=== PATIENT | male | born 1940 | race African-American/Black ===

== ENCOUNTER 2016-12-23 20:23 | Emergency (ER) | payer MEDICARE, OTHER ==
[~2016-12-23] VITALS: Ht 175.3 cm; Wt 75.0 kg
[~2016-12-23 20:23] MED LIST: A THTAB2 PO; ACET325T PO; ATOR1TAB18 PO; DILA100C PO; DIVA250T PO; FERR325T PO; LACT10SO PO; LEXA10TA PO; METO50TA PO; PRAD150C PO; ZYPR10TA PO
[2016-12-23 20:47] VITALS: BP 133/66; PULSE 83; RESP 20; TEMP 97.7; O2SAT 97
--- NOTE | 2016-12-23 22:03 | PD ---
HPI Chief Complaint: Fall Time Seen by Provider: 22:03 Travel History International Travel<30 days: No Contact w/Intl Traveler<30days: No Traveled to known affect area: No History of Present Illness HPI 76-year-old male with history of hypertension, CAD, dementia, on Pradaxa presents to the emergency department for evaluation. Patient had a witnessed fall when transferring to standing position. He did strike his head without loss of consciousness. Report was called for nursing staff at his alf facility who requested CTP complete due to their policy that patient is on an anticoagulant. Patient does not offer any history. He states "I am not sick." He then tries to cover his head up and go to sleep. PFSH Past Medical History Anxiety: Yes Depression: Yes Cardiovascular Problems: Yes (HTN) High Cholesterol: Yes Dementia: Yes Diminished Hearing: No Hypertension: Yes Musculoskeletal: Yes (PER MEDICAL RECORD-MUSCLE WEAKNESS , LACK OF COORDINATION , DIFFICULTY WALK) Neurologic: Yes Psychiatric: Yes Immunizations Current: Yes Schizophrenia: Yes Seizures: Yes Influenza Vaccination: Yes Past Surgical History Other Surgery: Yes (UNABLE TO OTAIN) Social History Alcohol Use: No Tobacco Use: No Substance Use: No Allergies-Medications (Allergen,Severity, Reaction): Coded Allergies: *MDRO Multi-Drug Resistant Organism (Verified Adverse Reaction, Unknown, ) 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 - 06/13/16 Reported Meds & Prescriptions Reported Meds & Active Scripts Active Reported Macrodantin (Nitrofurantoin Macrocrystal) 50 Mg Cap 50 Mg PO DAILY Zyprexa (Olanzapine) 10 Mg Tab 10 Mg PO HS A Thru Z Select Vitamin W/Minerals (Multiple Vitamins W/ Minerals) 1 Tab 1 Tab PO DAILY Lactulose Liq (Lactulose) 10 Gm/15 Ml Soln 45 Ml PO TID PRN Pradaxa (Dabigatran) 150 Mg Cap 150 Mg PO BID Acetaminophen 325 Mg Tab 325 Mg PO Q4-6H PRN Dilantin (Phenytoin Extended) 100 Mg Cap 400 Mg PO BID Metoprolol Tartrate 50 Mg Tab 50 Mg PO BID Ferrous Sulfate 325 Mg Tab 325 Mg PO DAILY Lexapro (Escitalopram Oxalate) 10 Mg Tab 10 Mg PO DAILY Divalproex DR (Divalproex Sodium) 250 Mg Tabdr 750 Mg PO BID Atorvastatin (Atorvastatin Calcium) 80 Mg Tab 80 Mg PO HS Review of Systems ROS Limitations: Poor Historian Except as stated in HPI: all other systems reviewed are Neg Physical Exam Exam Limitations: Poor Historian Narrative GENERAL: Pleasant elderly male patient, lying in bed in no acute distress SKIN: Warm and dry. 3 Centimeter reddened area above the left eyebrow. HEAD:. Normocephalic. EYES: Pupils equal and round. No scleral icterus. No injection or drainage. ENT: No nasal bleeding or discharge. Mucous membranes pink and moist. NECK: Trachea midline. No JVD. CARDIOVASCULAR: Regular rate.. No murmur appreciated. RESPIRATORY: No accessory muscle use. Clear to auscultation. Breath sounds equal bilaterally. GASTROINTESTINAL: Abdomen soft, non-tender, nondistended. Hepatic and splenic margins not palpable. MUSCULOSKELETAL: No obvious deformities. No clubbing. No cyanosis. No edema. NEUROLOGICAL: Awake and alert. No obvious cranial nerve deficits. Motor grossly within normal limits. Normal speech. PSYCHIATRIC: Appropriate mood. Data Data Last Documented VS Vital Signs Date Time Temp Pulse Resp B/P Pulse Ox O2 Delivery O2 Flow Rate FiO2 12/23/16 22:49 80 18 141/68 98 Room Air 12/23/16 20:[address] Brain W/O Iv Contrast(Rout) (12/23/16 ) [facility] Medical Decision Making Medical Screen Exam Complete: Yes Emergency Medical Condition: Yes Medical Record Reviewed: Yes Differential Diagnosis Minor head injury versus scalp abrasion versus intracranial hemorrhage Narrative Course 76-year-old male presents to the emergency department for evaluation from his alf facility after he struck his head following a witnessed fall without loss of consciousness. Patient appears without distress. There are no obvious deformities. Pupils are equal and reactive. I discussed the patient my attending physician Dr. Dixon and CT imaging is ordered at the brain. Again this was a witnessed fall and per the alf facility report, it is there policy the patient needs to come to the hospital for a CT of his brain. CT imaging is ordered. [address] Dixon. Disposition will pend her judgment. Condition: Stable Leela Salazar Dec 23, 2016 22:03
[2016-12-23] MEDS ORDERED: NITR50CA27 PO (22:07)
[2016-12-23 22:49] VITALS: BP 141/68; PULSE 80; RESP 18; O2SAT 98
--- NOTE | 2016-12-23 23:53 | RADRPT ---
EXAM DATE/TIME: 12/23/2016 23:20 [facility] COMPARISON: CT BRAIN W/O CONTRAST, July 01, 2016, 4:41. INDICATIONS : Witnessed fall. Patient is on pradaxa. RADIATION DOSE: 37.95 CTDIvol (mGy) MEDICAL HISTORY : Hypertension. Diabetes mellitus type 2. Dementia. SURGICAL HISTORY : None. ENCOUNTER: Initial ACUITY: 1 day PAIN SCALE: 0/10 LOCATION: cranial TECHNIQUE: Multiple contiguous axial images were obtained of the head. Using automated exposure control and adj ustment of the mA and/or kV according to patient size, radiation dose was kept as low as reasonably a chievable to obtain optimal diagnostic quality images. FINDINGS: CEREBRUM: The ventricles are normal for age. No evidence of midline shift, mass lesion, hemorrhage or acute in farction. No extra-axial fluid collections are seen. POSTERIOR FOSSA: The cerebellum and brainstem are intact. The 4th ventricle is midline. The cerebellopontine angle i s unremarkable. EXTRACRANIAL: The visualized portion of the orbits is intact. SKULL: The calvaria is intact. No evidence of skull fracture. CONCLUSION: Normal examination for a patient of this age. No significant change has occurred. Renato Laura MD on December 23, 2016 at 23:50 Board Certified Radiologist. This report was verified electronically.
--- NOTE | 2016-12-24 01:36 | PD ---
Physical Exam Narrative I, Dr. Dixon, have reviewed the advance practice practitioner's documentation and am in agreement, met with the patient face to face, made the diagnosis, and the medical decision making was done by me. *My assessment and Findings: Head trauma 76yo M with dementia [facility] a [facility] and was sent her for CT brain per their protocol. Pt is well appearing and denies any complaints. CT brain showed normal examination for a patient at this age. No significant change has occurred. Pt has mild erythema on left forehead but no laceration or hematoma. VS stable. Will send pt back to jail. Data Data Last Documented VS Vital Signs Date Time Temp Pulse Resp B/P Pulse Ox O2 Delivery O2 Flow Rate FiO2 12/23/16 22:49 80 18 141/68 98 Room Air 12/23/16 20:[address] Brain W/O Iv Contrast(Rout) (12/23/16 ) MDM Supervised Visit with YASMINE: Yes Interpretation(s) Last Impressions Head CT 12/23/16 0000 Signed Impressions: Service Date/Time: Friday, December 23, 2016 23:20 - CONCLUSION: Normal examination for a patient of this age. No significant change has occurred. Renato Laura MD Diagnosis Primary Impression: Head injury Qualified Code: S09.90XA - Head injury, initial encounter Patient Instructions: General Instructions Departure Forms: Tests/Procedures Additional Instruction: Please return to the ED if vomiting, acting not normal for him or any other concerning symptoms. Please follow up with your PMD in 1-2 days. Med/Other Pt SpecificInfo: No Change to Meds Disposition: 01 DISCHARGE HOME Condition: Stable Padmini Dixon DO Dec 24, 2016 01:36
== END 2016-12-24 09:41 | disposition home or self-care (01) ==
LOC: NEDAMB 20:23 → NEPE 12-24 09:41
DX: S09.90XA Unspecified injury of head, initial encounter (principal); I10 Essential (primary) hypertension; E78.00 Pure hypercholesterolemia, unspecified; F03.90 Unspecified dementia, unspecified severity, without behavioral disturbance, psychotic disturbance, mood disturbance, and anxiety; Z79.01 Long term (current) use of anticoagulants; Z86.59 Personal history of other mental and behavioral disorders; Z86.79 Personal history of other diseases of the circulatory system; Z87.39 Personal history of other diseases of the musculoskeletal system and connective tissue; Z86.69 Personal history of other diseases of the nervous system and sense organs; W18.39XA Other fall on same level, initial encounter; Y92.129 Unspecified place in nursing home as the place of occurrence of the external cause
CPT/HCPCS: 70450

== ENCOUNTER 2017-01-30 11:08 | Emergency (ER) | payer MEDICARE, OTHER ==
[~2017-01-30] VITALS: Ht 172.7 cm; Wt 62.0 kg
[~2017-01-30 11:08] MED LIST changes: +NITR50CA27 PO
[2017-01-30 11:13] VITALS: BP 119/57; PULSE 73; RESP 18; TEMP 97.8; O2SAT 100
--- NOTE | 2017-01-30 11:43 | RADRPT ---
EXAM DATE/TIME: 01/30/2017 11:28 [facility] COMPARISON: PELVIS AP ONLY, March 04, 2015, 3:16. INDICATIONS : Pain. MEDICAL HISTORY : None. SURGICAL HISTORY : Hip replacement, left. ENCOUNTER: Initial ACUITY: 1 day PAIN SCORE: Non-responsive. LOCATION: Bilateral pelvis FINDINGS: 2 AP views of the pelvis were obtained and demonstrate the patient is status post interval left hip a rthroplasty. The femoral and acetabular components are intact and in normal alignment. Dystrophic fatimah cification is noted along the lateral hip. There are vascular calcifications and diffuse osteopenia. There is no acute fracture or malalignment. CONCLUSION: 1. Status post left hip arthroplasty. 2. No acute fracture or malalignment. Ken James MD on January 30, 2017 at 11:37 Board Certified Radiologist. This report was verified electronically.
--- NOTE | 2017-01-30 11:48 | PD ---
HPI Chief Complaint: Fall Time Seen by Provider: 11:43 Travel History International Travel<30 days: No Contact w/Intl Traveler<30days: No Traveled to known affect area: No History of Present Illness HPI 76-year-old male that presents to the ED for evaluation of fall in the [facility]. Per report from the [facility] patient apparently fell from his bed which is about a foot out of the floor into a fall cushion on his bed. He rolled over from that. Patient does take Pradaxa so he was brought here for evaluation. Patient complains of nothing. He is pleasantly confused secondary to dementia. He denies any chest pain or shortness of breath. He is moving all extremities with no pain. Patient is nonambulatory which is chronic. No obvious signs of injury. Patient does have a history of MRSA. History is limited secondary to patient's status. Most of the story is obtained from [facility] report and paperwork that was brought with the patient. PFSH Past Medical History Hx Anticoagulant Therapy: Yes (PRADAXA ) Anxiety: Yes Depression: Yes Cardiovascular Problems: Yes High Cholesterol: Yes Dementia: Yes Diminished Hearing: No Hypertension: Yes Musculoskeletal: Yes (PER MEDICAL RECORD-MUSCLE WEAKNESS , LACK OF COORDINATION , DIFFICULTY WALK) Neurologic: Yes Psychiatric: Yes Immunizations Current: Yes Schizophrenia: Yes Seizures: Yes Past Surgical History Other Surgery: Yes (UNABLE TO OTAIN) Social History Alcohol Use: No Tobacco Use: No Substance Use: No Allergies-Medications (Allergen,Severity, Reaction): Coded Allergies: *MDRO Multi-Drug Resistant Organism (Verified Adverse Reaction, Unknown, ) 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 - 06/13/16 Reported Meds & Prescriptions Reported Meds & Active Scripts Active Reported Macrodantin (Nitrofurantoin Macrocrystal) 50 Mg Cap 50 Mg PO DAILY Zyprexa (Olanzapine) 10 Mg Tab 10 Mg PO HS A Thru Z Select Vitamin W/Minerals (Multiple Vitamins W/ Minerals) 1 Tab 1 Tab PO DAILY Lactulose Liq (Lactulose) 10 Gm/15 Ml Soln 45 Ml PO TID PRN Pradaxa (Dabigatran) 150 Mg Cap 150 Mg PO BID Acetaminophen 325 Mg Tab 325 Mg PO Q4-6H PRN Dilantin (Phenytoin Extended) 100 Mg Cap 400 Mg PO BID Metoprolol Tartrate 50 Mg Tab 50 Mg PO BID Ferrous Sulfate 325 Mg Tab 325 Mg PO DAILY Lexapro (Escitalopram Oxalate) 10 Mg Tab 10 Mg PO DAILY Divalproex DR (Divalproex Sodium) 250 Mg Tabdr 750 Mg PO BID Atorvastatin (Atorvastatin Calcium) 80 Mg Tab 80 Mg PO HS Review of Systems Except as stated in HPI: all other systems reviewed are Neg Physical Exam Narrative GENERAL: SKIN: Warm and dry. HEAD: Atraumatic. Normocephalic. EYES: Pupils equal and round 4 mm reactive to light and accommodation. No scleral icterus. No injection or drainage. ENT: No nasal bleeding or discharge. Mucous membranes pink and moist. Tongue is midline. No uvula deviation. NECK: Trachea midline. No JVD. CARDIOVASCULAR: Regular rate and rhythm. No murmurs, S3, S4. RESPIRATORY: No accessory muscle use. Clear to auscultation. Breath sounds equal bilaterally. GASTROINTESTINAL: Abdomen soft, non-tender, nondistended. Hepatic and splenic margins not palpable. MUSCULOSKELETAL: Extremities without clubbing, cyanosis, or edema. No obvious deformities. Full range of motion of the upper and lower extremities bilaterally. 2+ pulses bilaterally. No cervical, thoracic, lumbar spine tenderness to palpation. NEUROLOGICAL: Awake and alert. No obvious cranial nerve deficits. Motor grossly within normal limits. Five out of 5 muscle strength in the arms and legs. Normal speech. PSYCHIATRIC: Appropriate mood and affect; insight and judgment normal. Data Data Last Documented VS Vital Signs Date Time Temp Pulse Resp B/P Pulse Ox O2 Delivery O2 Flow Rate FiO2 01/30/17 11:14 17 100 Room Air 01/30/17 11:13 97.8 73 119/[address] Brain W/O Iv Contrast(Rout) (01/30/17 11:17) Pelvis, Ap Only (Routine) (01/30/17 11:17) MDM Medical Decision Making Medical Screen Exam Complete: Yes Emergency Medical Condition: Yes Medical Record Reviewed: Yes Interpretation(s) Last Impressions Pelvis X-Ray 01/30/17 1117 Signed Impressions: Service Date/Time: Monday, January 30, 2017 11:28 - CONCLUSION: 1. Status post left hip arthroplasty. 2. No acute fracture or malalignment. Ken James MD CT head negative Differential Diagnosis Fall versus dementia versus head injury versus trauma versus normal exam versus contusion Narrative Course 76-year-old male that presents to the ED for evaluation of fall. Patient was properly examined and was found to have no signs of acute medical distress. Patient apparently had a very small fall from a bed after he rolled over into the padded fall cushion. At this time because patient does take blood thinners and do recommend imaging of the head as well as the pelvis to make sure patient doesn't have any acute disease. Patient is chronically nonambulatory. History is limited because of patient's dementia. I do not see any obvious sign of trauma this time. Patient moving all extremities. Imaging showed Diagnosis Primary Impression: Fall Qualified Code: W19.XXXA - Fall, initial encounter Patient Instructions: General Instructions Additional Instructions: F/u with PCP. Motrin or tylenol for pain. See ED if worsening symptoms. Med/Other Pt SpecificInfo: No Change to Meds Disposition: 01 DISCHARGE HOME Condition: Stable Nicholas Dave January 30, 2017 11:48
--- NOTE | 2017-01-30 12:50 | RADRPT ---
EXAM DATE/TIME: 01/30/2017 12:32 [facility] COMPARISON: CT BRAIN W/O CONTRAST, December 23, 2016, 23:20. INDICATIONS : Fall from bed today. RADIATION DOSE: 56.35 CTDIvol (mGy) MEDICAL HISTORY : Seizures. Dementia. Hypertension. SURGICAL HISTORY : None. ENCOUNTER: Initial ACUITY: 1 day PAIN SCALE: Non-responsive LOCATION: Bilateral head TECHNIQUE: Multiple contiguous axial images were obtained of the head. Using automated exposure control and adj ustment of the mA and/or kV according to patient size, radiation dose was kept as low as reasonably a chievable to obtain optimal diagnostic quality images. FINDINGS: CEREBRUM: The ventricles are normal for age with diffuse moderate atrophic change. No evidence of midline shift , mass lesion, hemorrhage or acute infarction. No extra-axial fluid collections are seen. POSTERIOR FOSSA: The cerebellum and brainstem are intact. The 4th ventricle is midline. The cerebellopontine angle i s unremarkable. EXTRACRANIAL: The visualized portion of the orbits is intact. SKULL: The calvaria is intact. No evidence of skull fracture. CONCLUSION: Negative trauma CT with no evidence of hemorrhage. Ken James MD on January 30, 2017 at 12:46 Board Certified Radiologist. This report was verified electronically.
[2017-01-30 13:00] VITALS: BP 122/67; PULSE 76; RESP 17; TEMP 98; O2SAT 99
== END 2017-01-30 17:32 ==
LOC: NEPE 11:08 → NEPD 17:32
DX: F03.90 Unspecified dementia, unspecified severity, without behavioral disturbance, psychotic disturbance, mood disturbance, and anxiety (principal); W06.XXXA Fall from bed, initial encounter; Y92.129 Unspecified place in nursing home as the place of occurrence of the external cause
CPT/HCPCS: 70450; 72170

== ENCOUNTER 2017-03-01 09:57 | Inpatient (IN) | payer MEDICARE, OTHER ==
[~2017-03-01] VITALS: Ht 172.7 cm; Wt 69.2 kg
[2017-03-01] VITALS (9 sets, daily range): BP systolic 125–147; BP diastolic 59–91; PULSE 72–81; RESP 14–18; TEMP 95.3–98; O2SAT 96–100
[2017-03-01] MEDS ORDERED: TYLE325T PO (10:53)
[2017-03-01] MEDS ORDERED: LORA1TAB12 EXTERNAL (10:53)
[2017-03-01] MEDS ORDERED: TRIME100 PO (10:53)
[2017-03-01] MEDS ORDERED: SODIUM CHLOR 0.9% 1000 ML INJ 1,000 ML IV SCH ×2 (11:04→14:23)
--- NOTE | 2017-03-01 11:05 | PD ---
HPI Chief Complaint: Altered Mental Status Time Seen by Provider: 11:05 Travel History International Travel<30 days: No Contact w/Intl Traveler<30days: No Traveled to known affect area: No History of Present Illness HPI 76-year-old male with history of dementia, seizure disorder, A. fib, on Pradaxa , diabetes, GERD, schizophrenia, presents to the emergency department from [facility] for evaluation of altered mental status. Per very brief report, the patient has not been responding his usual self and has been refusing to take his medication. Patient is unable to provide any history. He is nonverbal at this time. It is uncertain how long the patient has been altered. PFSH Past Medical History Hx Anticoagulant Therapy: Yes (PRADAXA ) Anxiety: Yes Depression: Yes Cardiovascular Problems: Yes High Cholesterol: Yes Dementia: Yes Diminished Hearing: No Hypertension: Yes Musculoskeletal: Yes (PER MEDICAL RECORD-MUSCLE WEAKNESS , LACK OF COORDINATION , DIFFICULTY WALK) Neurologic: Yes Psychiatric: Yes Immunizations Current: Yes Schizophrenia: Yes Seizures: Yes Tetanus Vaccination: Unknown Past Surgical History Surgical History: Unable to Obtain Other Surgery: Yes (UNABLE TO OTAIN) Social History Alcohol Use: No Tobacco Use: No Substance Use: No Allergies-Medications (Allergen,Severity, Reaction): Coded Allergies: *MDRO Multi-Drug Resistant Organism (Verified Adverse Reaction, Unknown, ) 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 - 06/13/16 Reported Meds & Prescriptions Reported Meds & Active Scripts Active Reported Macrodantin (Nitrofurantoin Macrocrystal) 50 Mg Cap 50 Mg PO DAILY Zyprexa (Olanzapine) 10 Mg Tab 10 Mg PO HS Lactulose Liq (Lactulose) 10 Gm/15 Ml Soln 45 Ml PO TID PRN Pradaxa (Dabigatran) 150 Mg Cap 150 Mg PO BID Dilantin (Phenytoin Extended) 100 Mg Cap 400 Mg PO BID Metoprolol Tartrate 50 Mg Tab 50 Mg PO BID Lexapro (Escitalopram Oxalate) 10 Mg Tab 10 Mg PO DAILY Divalproex DR (Divalproex Sodium) 250 Mg Tabdr 750 Mg PO BID Atorvastatin (Atorvastatin Calcium) 80 Mg Tab 80 Mg PO HS Lorazepam 1 Mg Tab 1 Mg EXTERNAL Q6HR PRN Trimethoprim 100 Mg Tab 100 Mg PO HS Tylenol (Acetaminophen) 325 Mg Tab 650 Mg PO Q4H PRN Review of Systems ROS Limitations: Altered Mental Status Except as stated in HPI: all other systems reviewed are Neg Physical Exam Exam Limitations: Altered Mental Status Narrative GENERAL: Thin elderly male patient, lying in bed, mouth open, tracking with eyes but non-responsive verbally. Not following commands. Patient does have spontaneous and seemingly purposeful movement of limbs. SKIN: Focused skin assessment warm/dry. Poor skin turgor. HEAD: Atraumatic. Normocephalic. EYES: Pupils equal and round. No scleral icterus. No injection or drainage. ENT: No nasal bleeding or discharge. Mucous membranes dry and crusted. NECK: Trachea midline. No JVD. CARDIOVASCULAR: Regular rate and irregular rhythm. No murmur appreciated. RESPIRATORY: No accessory muscle use. Diminished likely due to poor and story effort.. Breath sounds equal bilaterally. GASTROINTESTINAL: Abdomen soft, non-tender, nondistended. Hepatic and splenic margins not palpable. MUSCULOSKELETAL: No obvious deformities. No clubbing. No cyanosis. No edema. NEUROLOGICAL: Awake. Unable to assess for cranial nerve deficits. Nonverbal Data Data Last Documented VS Vital Signs Date Time Temp Pulse Resp B/P Pulse Ox O2 Delivery O2 Flow Rate FiO2 03/01/17 11:35 72 16 147/67 98 Nasal Cannula 2 03/01/17 10:13 96.0 Orders Electrocardiogram (03/01/17 11:04) Ammonia (03/01/17 11:04) Complete Blood Count With Diff (03/01/17 11:04) Comprehensive Metabolic Panel (03/01/17 11:04) Creatine Kinase (Cpk) (03/01/17 11:04) Prothrombin Time / Inr (Pt) (03/01/17 11:04) Act Partial Throm Time (Ptt) (03/01/17 11:04) Troponin I (03/01/17 11:04) Thyroid Stimulating Hormone (03/01/17 11:04) Urinalysis - C+S If Indicated (03/01/17 11:04) Lactic Acid Sepsis Protocol (03/01/17 11:04) Blood Culture (03/01/17 11:04) Chest, Single Ap (03/01/17 11:04) Ct Brain W/O Iv Contrast(Rout) (03/01/17 11:04) Blood Glucose (03/01/17 11:04) Ecg Monitoring (03/01/17 11:04) Iv Access Insert/Monitor (03/01/17 11:04) Oximetry (03/01/17 11:04) Sodium Chloride 0.9% Flush (Ns Flush) (03/01/17 11:15) Sodium Chlor 0.9% 1000 Ml Inj (Ns 1000 M (03/01/17 11:04) Dextrose 50% In Elizabeth (Vial) Inj (D50w (Vi (03/01/17 11:45) Phenytoin (Dilantin) (03/01/17 12:22) Urine Culture (03/01/17 12:26) Vancomycin Inj (Vancomycin Inj) (03/01/17 13:45) Piperacil-Tazo 3.375 Gm Premix (Zosyn 3. (03/01/17 13:45) Labs Laboratory Tests Test 03/01/17 03/01/17 11:15 12:26 White Blood Count 6.4 TH/MM3 Red Blood Count 3.95 MIL/MM3 Hemoglobin 12.1 GM/DL Hematocrit 37.0 % Mean Corpuscular Volume 93.6 FL Mean Corpuscular Hemoglobin 30.5 PG Mean Corpuscular Hemoglobin 32.6 % Concent Red Cell Distribution Width 15.3 % Platelet Count 251 TH/MM3 Mean Platelet Volume 7.6 FL Neutrophils (%) (Auto) 73.8 % Lymphocytes (%) (Auto) 19.2 % Monocytes (%) (Auto) 6.0 % Eosinophils (%) (Auto) 0.7 % Basophils (%) (Auto) 0.3 % Neutrophils # (Auto) 4.7 TH/MM3 Lymphocytes # (Auto) 1.2 TH/MM3 Monocytes # (Auto) 0.4 TH/MM3 Eosinophils # (Auto) 0.0 TH/MM3 Basophils # (Auto) 0.0 TH/MM3 CBC Comment DIFF FINAL Differential Comment Prothrombin Time 12.0 SEC Prothromb Time International 1.1 RATIO Ratio Activated Partial 32.0 SEC Thromboplast Time Sodium Level 144 MEQ/L Potassium Level 5.9 MEQ/L Chloride Level 108 MEQ/L Carbon Dioxide Level 29.0 MEQ/L Anion Gap 7 MEQ/L Blood Urea Nitrogen 51 MG/DL Creatinine 1.66 MG/DL Estimat Glomerular Filtration 49 ML/MIN Rate Random Glucose 57 MG/DL Lactic Acid Level 1.0 mmol/L Calcium Level 9.4 MG/DL Total Bilirubin 0.2 MG/DL Aspartate Amino Transf 64 U/L (AST/SGOT) Alanine Aminotransferase 75 U/L (ALT/SGPT) Alkaline Phosphatase 226 U/L Ammonia 20 MCMOL/L Total Creatine Kinase 57 U/L Troponin I LESS THAN 0.02 NG/ML Total Protein 9.6 GM/DL Albumin 3.7 GM/DL Thyroid Stimulating Hormone 7.380 uIU/ML 3rd Gen Phenytoin (Dilantin) Level 47.9 MCG/ML Urine Color YELLOW Urine Turbidity HAZY Urine pH 5.0 Urine Specific [place] 1.017 Urine Protein TRACE mg/dL Urine Glucose (UA) NEG mg/dL Urine Ketones 10 mg/dL Urine Occult Blood NEG Urine Nitrite NEG Urine Bilirubin NEG Urine Urobilinogen LESS THAN 2.0 MG/DL Urine Leukocyte Esterase LARGE Urine RBC 3 /hpf Urine WBC 28 /hpf Urine WBC Clumps RARE Urine Squamous Epithelial <1 /hpf Cells Urine Bacteria FEW /hpf Urine Hyaline Casts 5 /lpf Urine Mucus FEW /lpf Microscopic Urinalysis Comment CATH-CULTURE IND MDM Medical Decision Making Medical Screen Exam Complete: Yes Emergency Medical Condition: Yes Medical Record Reviewed: Yes Differential Diagnosis Altered mental status versus electrolyte abnormality versus sepsis versus UTI versus medication side effect versus toxicity Narrative Course 76-year-old male presents to the emergency department for evaluation of altered mental status. History is poor and patient is unable to help with this. Patient does track with eyes and has what seems to be purposeful spontaneous movement of the extremities. CBC is without leukocytosis. Hemoglobin is stable at 12.1. CMP is with the potassium of 5.9, creatinine is 1.66, BUN is 51. Lactic acid is 1.0. AST and alkaline phosphatase are elevated. Troponins less than 0.02. TSH is 7.38. Urinalysis is hazy with 10 ketonuria, large leukocyte esterase, 28 WBC, rare WBC clumps, few bacteria, few mucus, culture is indicated. Dilantin level is 47.9. I discussed the patient in my attending physician. He is given IV antibiotic for UTI. He is given normal saline boluses to assist with rehydration. He'll need to be admitted for altered mental status as well as Dilantin toxicity. A call has been placed to hospitalist for admission. Diagnosis Primary Impression: Altered mental status Qualified Code: R41.82 - Altered mental status, unspecified altered mental status type Additional Impressions: Dilantin toxicity Qualified Code: T42.0X4A - Dilantin toxicity, undetermined intent, initial encounter UTI (urinary tract infection) Qualified Code: N39.0 - Urinary tract infection without hematuria, site unspecified Admitting Information Admitting Physician Requests: Admit Condition: Stable Leela Salazar Mar 01, 2017 11:05
[2017-03-01] MEDS ORDERED: SODIUM CHLORIDE 0.9% FLUSH 5 ML FLUSH IV FLUSH PRN (11:15)
--- NOTE | 2017-03-01 11:25 | RADRPT ---
EXAM DATE/TIME: 03/01/2017 11:10 [facility] COMPARISON: CHEST SINGLE AP, July 02, 2016, 2:07. INDICATIONS : Sycope, short of breath MEDICAL HISTORY : Hypertension. seizures, dementia SURGICAL HISTORY : None. ENCOUNTER: Initial ACUITY: 1 day PAIN SCORE: Non-responsive. LOCATION: Bilateral chest FINDINGS: A single view of the chest demonstrates the lungs to be symmetrically aerated without evidence of mas s, infiltrate or effusion. The cardiomediastinal contours are unremarkable. Osseous structures are intact. CONCLUSION: No acute disease. Иван Flor MD FACR on March 01, 2017 at 11:22 Board Certified Radiologist. This report was verified electronically.
[2017-03-01 11:36] LABS: AUTOMATED NEUTROPHIL # 4.7 TH/MM3 (1.8-7.7); BASOPHIL % 0.3 % (0.0-2.0); EOSINOPHIL % 0.7 % (0.0-4.0); HEMO FLAGS DIFF FINAL; LYMPH % 19.2 % (9.0-44.0); LYMPHOCYTE # 1.2 TH/MM3 (1.0-4.8); MEAN CELL VOLUME 93.6 FL (80.0-100.0); MEAN CORPUSCULAR HEMOGLOBIN 30.5 PG (27.0-34.0); MEAN CORPUSCULAR HGB CONC 32.6 % (32.0-36.0); NEUT % 73.8 % (16.0-70.0); PLATELET COUNT 251 TH/MM3 (150-450); RED BLOOD COUNT 3.95 MIL/MM3 (4.50-5.90); RED CELL DISTRIBUTION WIDTH 15.3 % (11.6-17.2); WHITE BLOOD COUNT 6.4 TH/MM3 (4.0-11.0)
[2017-03-01] MEDS ORDERED: DEXTROSE 50% IN WATER 50 ML VIAL(D50) IV PRN (11:45)
[2017-03-01 11:46] LABS: INTERNATIONAL NORMALIZED RATIO 1.1 RATIO
[2017-03-01 11:58] LABS: ANION GAP 7 MEQ/L (5-15); AST (GOT) 64 U/L (15-37); BLOOD UREA NITROGEN 51 MG/DL (7-18); CHLORIDE 108 MEQ/L (98-107); GLOMERULAR FILTRATION RATE 49 ML/MIN (>89); POTASSIUM 5.9 MEQ/L (3.5-5.1); SODIUM (NA) 144 MEQ/L (136-145)
[2017-03-01 12:07] LABS: ALKALINE PHOSPHATASE 226 U/L (45-117); ALT (GPT) 75 U/L (12-78); TOTAL BILIRUBIN ADULT 0.2 MG/DL (0.2-1.0)
[2017-03-01 12:09] LABS: CREATINE KINASE 57 U/L (39-308)
--- NOTE | 2017-03-01 12:17 | RADRPT ---
EXAM DATE/TIME: 03/01/2017 11:58 [place] COMPARISON: CT BRAIN W/O CONTRAST, January 30, 2017, 12:32. INDICATIONS : Altered mental status RADIATION DOSE: 40.96 CTDIvol (mGy) MEDICAL HISTORY : Cardiovascular disease. Dementia. Seizures. SURGICAL HISTORY : None. ENCOUNTER: Initial ACUITY: 2 days PAIN SCALE: Non-responsive LOCATION: cranial TECHNIQUE: Multiple contiguous axial images were obtained of the head. Using automated exposure control and adj ustment of the mA and/or kV according to patient size, radiation dose was kept as low as reasonably a chievable to obtain optimal diagnostic quality images. FINDINGS: CEREBRUM: The ventricles are normal for age. No evidence of midline shift, mass lesion, hemorrhage or acute in farction. No extra-axial fluid collections are seen. POSTERIOR FOSSA: The cerebellum and brainstem are intact. The 4th ventricle is midline. The cerebellopontine angle i s unremarkable. EXTRACRANIAL: The visualized portion of the orbits is intact. SKULL: The calvaria is intact. No evidence of skull fracture. CONCLUSION: No acute disease. Иван Flor MD FACR on March 01, 2017 at 12:15 Board Certified Radiologist. This report was verified electronically.
[2017-03-01 13:10] LABS: BACTERIA, URINE FEW /hpf; BLOOD, URINE NEG (NEG); GLUCOSE,URINE NEG (NEG); HYALINE CAST, URINE 5 /lpf (RARE); KETONE, URINE 10 mg/dL (NEG); MUCUS URINE FEW /lpf (OCC); NITRITE,URINE NEG (NEG); SQUAMOUS EPITHELIAL CELL URINE <1 /hpf (0-5); URINE COLOR YELLOW (YELLW/STRAW)
[2017-03-01 13:13] LABS: COMMENT (UR) CATH-CULTURE IND; CULTURE IF INDICATED CATH CULTURE IND
[2017-03-01] MEDS ORDERED: PIPERACIL-TAZO 3.375 GM PREMIX 50 ML IV ONE (13:45)
[2017-03-01] MEDS ORDERED: VANCOMYCIN INJ 1,000 MG in SODIUM CHLOR 0.9% 250 ML INJ 250 ML IV ONE (13:45)
[2017-03-01] MEDS ORDERED: LACTULOSE SYRUP 20 GM/30 ML CUP PO PRN (14:30)
[2017-03-01] MEDS ORDERED: DEXTROSE IV SCH (14:30)
[2017-03-01] MEDS ORDERED: SODIUM CHLORIDE 0.45% IV SCH (14:30)
[2017-03-01] MEDS ORDERED: NALOXONE HCL 0.4 MG/ML AMP IV PRN (14:30)
[2017-03-01] MEDS ORDERED: SODIUM CHLORIDE 0.9% FLUSH 10 ML FLUSH IV FLUSH PRN (14:30)
[2017-03-01] MEDS ORDERED: MAGNESIUM HYDROXIDE SUSP 30 ML CUP PO PRN (14:30)
[2017-03-01] MEDS ORDERED: BISACODYL 10 MG SUPP RECTAL PRN (14:30)
[2017-03-01] MEDS ORDERED: SENNOSIDES 8.6 MG TAB PO PRN (14:30)
--- NOTE | 2017-03-01 14:40 | HHI.HP ---
cc: Dr. Mukul Breaux [facility] No Primary Care Physician Admission Diagnosis Encephalopathy, Dilantin Toxicity, UTI, PEMA Diagnoses: Chief Complaint: AMS Travel History International Travel<30 Days: No Contact w/Intl Traveler <30 Da: No Traveled to Known Affected Are: No History of Present Illness Written by Viridiana Valentino, acting as scribe for Dr. Middleton on 03/01/17 at 14:59. 76-year-old male with history of dementia, seizure disorder, A. fib on Pradaxa, diabetes, GERD, schizophrenia, dysphagia, presents to the ED from [facility] for evaluation of altered mental status. The patient is currently awake, but nonverbal, not oriented, not following commands, and unable to provide any reliable medical history therefore history obtained from [facility], EMR, and records provided from SNF. Reportedly the patient has not been acting appropriately, less responsive, refusing to take his medications. Unknown duration. He reportedly has advanced dementia and swallowing difficulties at baseline. Upon his arrival to the ER, Head CT unremarkable, diagnosed with PEMA with BUN 51/Cr 1.66, Dilantin toxicity with level 49, and UTI with +leuks/WBCs on UA. He was given IV Rocephin for UTI and started on IVF. The patient will be admitted to the observation unit. Review of Systems ROS Limitations: Clinical Condition, Altered Mental Status, Poor Historian Past Family Social History Past Medical History dementia hypertension seizure disorder A. fib on Pradaxa diabetes GERD schizophrenia dysphagia CKD stage 2 anemia Past Surgical History left hip surgery Reported Medications Macrodantin (Nitrofurantoin Macrocrystal) 50 Mg Cap 50 Mg PO DAILY Zyprexa (Olanzapine) 10 Mg Tab 10 Mg PO HS Lactulose Liq (Lactulose) 10 Gm/15 Ml Soln 45 Ml PO TID PRN Pradaxa (Dabigatran) 150 Mg Cap 150 Mg PO BID Dilantin (Phenytoin Extended) 100 Mg Cap 400 Mg PO BID Metoprolol Tartrate 50 Mg Tab 50 Mg PO BID Lexapro (Escitalopram Oxalate) 10 Mg Tab 10 Mg PO DAILY Divalproex DR (Divalproex Sodium) 250 Mg Tabdr 750 Mg PO BID Atorvastatin (Atorvastatin Calcium) 80 Mg Tab 80 Mg PO HS Lorazepam 1 Mg Tab 1 Mg EXTERNAL Q6HR PRN Trimethoprim 100 Mg Tab 100 Mg PO HS Tylenol (Acetaminophen) 325 Mg Tab 650 Mg PO Q4H PRN Allergies: Coded Allergies: *MDRO Multi-Drug Resistant Organism (Verified Adverse Reaction, Unknown, ) 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 - 06/13/16 Active Ordered Medications Current Medications Medications (Trade) Dose Ordered Sig/Miquel Route Start Time Stop Time Status Last Admin (D50w (Vial) Inj) 50 ml UNSCH PRN IV 03/01/17 11:45 03/01/17 11:48 (NS Flush) 2 ml UNSCH PRN IV FLUSH 03/01/17 14:30 (NS Flush) 2 ml BID IV FLUSH 03/01/17 21:00 (Narcan Inj) 0.4 mg UNSCH PRN IV 03/01/17 14:30 (Ramona-Colace) 1 tab BID PO 03/01/17 21:00 (Milk Of Magnesia Liq) 30 ml Q12H PRN PO 03/01/17 14:30 (Senokot) 17.2 mg Q12H PRN PO 03/01/17 14:30 (Dulcolax Supp) 10 mg DAILY PRN RECTAL 03/01/17 14:30 Lactulose 30 ml 30 ml DAILY PRN PO 03/01/17 14:30 Ceftriaxone Sodium 1000 mg/ Sodium Chloride 100 ml @ 200 mls/hr Q24H IV 03/01/17 15:00 03/01/17 14:48 (D2.5w-1/2 NS Inj) 1,000 ml @ 150 mls/hr Q6H40M IV 03/01/17 14:30 (Heparin Inj) 5,000 units Q8HR SQ 03/01/17 22:00 Family History Unable to obtain Social History Unable to obtain from patient Per EMR, reportedly no hx of tobacco, alcohol, or illicit drug use Lives at [facility] Physical Exam Vital Signs Vital Signs Date Time Temp Pulse Resp B/P Pulse Ox O2 Delivery O2 Flow Rate FiO2 03/01/17 13:48 81 18 136/91 96 03/01/17 11:35 72 16 147/67 98 Nasal Cannula 2 03/01/17 10:13 96.0 74 16 137/63 100 Nasal Cannula 2 03/01/17 10:13 16 100 Nasal Cannula 2 03/01/17 10:06 98.0 75 16 Physical Exam GENERAL: Well-nourished, well-developed elderly male patient in NAD. SKIN: Warm and dry. No rash. Left upper arm edematous secondary to IV infiltration. HEAD: Normocephalic. Atraumatic. EYES: Pupils equal and round. No scleral icterus. No injection or drainage. ENT: No nasal bleeding or discharge. Mucous membranes pink and moist. NECK: Supple. Trachea midline. CARDIOVASCULAR: Regular rate and rhythm. S1, S2 noted. No murmur appreciated. RESPIRATORY: No accessory muscle use. Clear to auscultation. Breath sounds equal bilaterally. GASTROINTESTINAL: Abdomen soft, non-tender, nondistended. Normoactive bowel sounds x4. MUSCULOSKELETAL: No obvious deformities. Extremities without clubbing, cyanosis , or edema. NEUROLOGICAL: Awake and alert, nonverbal, not oriented, not following commands. PSYCHIATRIC: insight and judgment limited Laboratory Laboratory Tests Test 03/01/17 03/01/17 11:15 12:26 White Blood Count 6.4 Red Blood Count 3.95 Hemoglobin 12.1 Hematocrit 37.0 Mean Corpuscular Volume 93.6 Mean Corpuscular Hemoglobin 30.5 Mean Corpuscular Hemoglobin 32.6 Concent Red Cell Distribution Width 15.3 Platelet Count 251 Mean Platelet Volume 7.6 Neutrophils (%) (Auto) 73.8 Lymphocytes (%) (Auto) 19.2 Monocytes (%) (Auto) 6.0 Eosinophils (%) (Auto) 0.7 Basophils (%) (Auto) 0.3 Neutrophils # (Auto) 4.7 Lymphocytes # (Auto) 1.2 Monocytes # (Auto) 0.4 Eosinophils # (Auto) 0.0 Basophils # (Auto) 0.0 CBC Comment DIFF FINAL Differential Comment Prothrombin Time 12.0 Prothromb Time International 1.1 Ratio Activated Partial 32.0 Thromboplast Time Sodium Level 144 Potassium Level 5.9 Chloride Level 108 Carbon Dioxide Level 29.0 Anion Gap 7 Blood Urea Nitrogen 51 Creatinine 1.66 Estimat Glomerular Filtration 49 Rate Random Glucose 57 Lactic Acid Level 1.0 Calcium Level 9.4 Total Bilirubin 0.2 Aspartate Amino Transf 64 (AST/SGOT) Alanine Aminotransferase 75 (ALT/SGPT) Alkaline Phosphatase 226 Ammonia 20 Total Creatine Kinase 57 Troponin I LESS THAN 0.02 Total Protein 9.6 Albumin 3.7 Thyroid Stimulating Hormone 7.380 3rd Gen Phenytoin (Dilantin) Level 47.9 Urine Color YELLOW Urine Turbidity HAZY Urine pH 5.0 Urine Specific [place] 1.017 Urine Protein TRACE Urine Glucose (UA) NEG Urine Ketones 10 Urine Occult Blood NEG Urine Nitrite NEG Urine Bilirubin NEG Urine Urobilinogen LESS THAN 2.0 Urine Leukocyte Esterase LARGE Urine RBC 3 Urine WBC 28 Urine WBC Clumps RARE Urine Squamous Epithelial <1 Cells Urine Bacteria FEW Urine Hyaline Casts 5 Urine Mucus FEW Microscopic Urinalysis Comment CATH-CULTURE IND Date/Time Procedure Status Source Growth 03/01/17 12:26 Urine Culture Received Urine Catheterized Urine Pending 03/01/17 11:45 Aerobic Blood Culture Received Blood Peripheral Pending 03/01/17 11:45 Anaerobic Blood Culture Received Blood Peripheral Pending Result Diagram: 03/01/17 1115 03/01/17 1115 Imaging Last Impressions Head CT 03/01/17 1104 Signed Impressions: Service Date/Time: Wednesday, March 01, 2017 11:58 - CONCLUSION: No acute disease. Иван Flor MD FACR Chest X-Ray 03/01/17 1104 Signed Impressions: Service Date/Time: Wednesday, March 01, 2017 11:10 - CONCLUSION: No acute disease. Иван Flor MD FACR Assessment and Plan Problem List: (1) Encephalopathy ICD Code: G93.40 Status: Acute (2) Altered mental status ICD Code: R41.82 Status: Acute (3) Dilantin toxicity ICD Code: T42.0X1A Status: Acute (4) UTI (urinary tract infection) ICD Code: N39.0 Status: Acute (5) Acute kidney injury ICD Code: N17.9 Status: Acute Assessment and Plan 76-year-old male with history of dementia, seizure disorder, A. fib on Pradaxa, diabetes, GERD, schizophrenia, dysphagia, presents to the ED from [facility] for evaluation of altered mental status. The patient is currently awake, but nonverbal, not oriented, not following commands, and unable to provide any reliable medical history therefore history obtained from [facility], EMR, and records provided from SNF. Reportedly the patient has not been acting appropriately, less responsive, refusing to take his medications. Toxic/Metabolic Encephalopathy: sent from SNF for evaluation of AMS. Suspect multifactorial secondary to dilantin toxicity, UTI, and dehydration with PEMA. -Head CT images reviewed, unremarkable -UA positive for UTI, continue antibiotics -blood cultures pending -Dilantin level 49, hold dilantin, repeat level in am -monitor neuro checks -monitor on telemetry -NPO for now, ST eval in am, hopefully restart po medications in the morning Dilantin Toxicity: on dilantin for hx of seizures. Dilantin level 49. -hold patient's dilantin -check dilantin level until within therapeutic range -monitor neuro checks UTI: UA +leuks/WBCs. S/p IV antibiotics in the ED. -will continue with IV Rocephin -monitor urine culture PEMA: Cr 1.66, previously 0.8 in . Suspect prerenal secondary to dehydration with recent decreased oral intake. -Give IVF -Repeat BMP in am -avoid nephrotoxins Hyperkalemia: K 5.9. Suspect secondary to dehydration/hemoconcentration. -give IVF -repeat BMP in am Atrial Fibrillation: chronic, EKG with sinus rhythm in ER -Pradaxa/metoprolol on hold while patient is NPO -Heparin SQ for prophylaxis -monitor on telemetry Diabetes Mellitus with Hypoglycemia: blood glucose 57 upon arrival. No prior HgbA1c. -Monitor accu-cheks for now, hold off on SSI while NPO -Will give IVF D2.5w with 1/2 NS at 150cc/hr Hypothyroidism: with elevated TSH -repeat TSH with T3/T4 in the am Seizure Disorder: chronic, dilantin on hold with toxicity as above -seizure precautions for now -restart dilantin when level within therapeutic range DVT Prophylaxis: Heparin sq until patient able to go back on his Pradaxa All other medical conditions stable, continue home medications as appropriate when patient able to swallow. This note was transcribed by justin [Viridiana Valentino PA-C]. I, Dr. Demarco Middleton personally performed the history, physical exam, and medical decision making; and confirmed the accuracy of the information in the transcribed note. Authenticated by Dr. Demarco Middleton on 03/01/17 at 17:26. 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 In the case of services not specified as inpatient-only, they are appropriately provided as inpatient services in accordance with the 2-midnight benchmark. Estimated LOS (days): 2 days is the estimated time the patient will need to remain in the hospital, assuming treatment plan goals are met and no additional complications. Post-Hospital Plan: SNF Problem Qualifiers (1) Altered mental status: Qualified Code: R41.82 - Altered mental status, unspecified altered mental status type (2) Dilantin toxicity: Qualified Code: T42.0X4A - Dilantin toxicity, undetermined intent, initial encounter (3) UTI (urinary tract infection): Qualified Code: N39.0 - Urinary tract infection without hematuria, site unspecified Viridiana Valentino PA-C Mar 01, 2017 14:40 Demarco Middleton MD Mar 01, 2017 17:27
[2017-03-01] MEDS: cefTRIAXone INJ 1,000 MG in SODIUM CHLORIDE 0.9% INJ 100 ML IV SCH (14:48)
[2017-03-01] MEDS: [UNRECOGNIZED DRUG - OTHER] IV SCH (19:05)
[2017-03-01] MEDS: SODIUM CHLORIDE IV SCH (19:05)
[2017-03-01] MEDS: WAT IV SCH (19:05)
[2017-03-01] MEDS: DEXTROSE IV SCH (19:05)
[2017-03-01] MEDS: DOCUSATE SODIUM 50 MG/SENNA 8.6 MG TAB PO SCH (21:00)
[2017-03-01] MEDS: SODIUM CHLORIDE 0.9% FLUSH 10 ML FLUSH IV FLUSH SCH (22:06)
[2017-03-01] MEDS: HEPARIN SODIUM - SQ 10,000 UNITS/ML VIAL SQ SCH (22:07)
[2017-03-02] VITALS (8 sets, daily range): BP systolic 111–152; BP diastolic 56–78; PULSE 70–80; RESP 15–18; TEMP 95.5–98.2; O2SAT 94–100
[2017-03-02] MEDS: WAT IV SCH ×2 (00:40→09:02)
[2017-03-02] MEDS: DEXTROSE IV SCH ×2 (00:40→09:02)
[2017-03-02] MEDS: [UNRECOGNIZED DRUG - OTHER] IV SCH ×2 (00:40→09:02)
[2017-03-02] MEDS: SODIUM CHLORIDE IV SCH ×2 (00:40→09:02)
[2017-03-02] MEDS: HEPARIN SODIUM - SQ 10,000 UNITS/ML VIAL SQ SCH ×3 (05:50→21:16)
[2017-03-02 06:25] LABS: BASOPHIL % 0.5 % (0.0-2.0); EOSINOPHIL # 0.1 TH/MM3 (0-0.4); EOSINOPHIL % 1.4 % (0.0-4.0); HEMATOCRIT 33.2 % (39.0-51.0); HEMO FLAGS DIFF FINAL; LYMPHOCYTE # 1.4 TH/MM3 (1.0-4.8); MEAN CELL VOLUME 94.6 FL (80.0-100.0); MEAN CORPUSCULAR HEMOGLOBIN 30.3 PG (27.0-34.0); MONO % 10.9 % (0.0-8.0); NEUT % 68.2 % (16.0-70.0); PLATELET COUNT 192 TH/MM3 (150-450); RED BLOOD COUNT 3.51 MIL/MM3 (4.50-5.90); RED CELL DISTRIBUTION WIDTH 15.3 % (11.6-17.2); WHITE BLOOD COUNT 7.4 TH/MM3 (4.0-11.0)
[2017-03-02 07:05] LABS: ALKALINE PHOSPHATASE 180 U/L (45-117); ALT (GPT) 56 U/L (12-78); ANION GAP 8 MEQ/L (5-15); AST (GOT) 49 U/L (15-37); BICARBONATE 28.5 MEQ/L (21.0-32.0); BLOOD UREA NITROGEN 36 MG/DL (7-18); CHLORIDE 108 MEQ/L (98-107); FREE T3 1.56 PG/ML (2.18-3.98); GLOMERULAR FILTRATION RATE 72 ML/MIN (>89); POTASSIUM 4.9 MEQ/L (3.5-5.1); SODIUM (NA) 144 MEQ/L (136-145); THYROXINE (T4) 3.4 MCG/DL (4.5-12.1); TOTAL BILIRUBIN ADULT 0.1 MG/DL (0.2-1.0)
[2017-03-02] MEDS: DOCUSATE SODIUM 50 MG/SENNA 8.6 MG TAB PO SCH ×2 (07:41→21:00)
[2017-03-02] MEDS: SODIUM CHLORIDE 0.9% FLUSH 10 ML FLUSH IV FLUSH SCH ×2 (07:41→21:17)
[2017-03-02] MEDS ORDERED: LEVOTHYROXINE SODIUM 100 MCG VIAL IV PUSH ONE (11:30)
--- NOTE | 2017-03-02 11:30 | HHI.PR ---
Subjective Remarks Patient is still not able to communicate. His baseline may be noncommunicating as his baseline is end-stage dementia. However, he does remain lethargic. His phenytoin level has not yet improved. Hypothyroidism appears present. Acute kidney injury has improved with hydration over time. Objective Vital Signs Date Time Temp Pulse Resp B/P Pulse Ox O2 Delivery O2 Flow Rate FiO2 03/02/17 08:04 70 03/02/17 08:00 71 18 135/63 100 03/02/17 04:00 95.7 76 18 148/64 97 03/02/17 00:00 95.5 76 15 111/74 96 03/01/17 22:00 96 Nasal Cannula 2.00 03/01/17 22:00 76 03/01/17 20:12 96.0 75 14 129/61 96 03/01/17 19:12 100 Nasal Cannula 2.00 03/01/17 16:05 95.3 75 17 125/59 100 03/01/17 15:31 78 18 142/87 98 03/01/17 13:48 81 18 136/91 96 03/01/17 11:35 72 16 147/67 98 Nasal Cannula 2 I/O 03/01/17 03/01/17 03/01/17 03/02/17 03/02/17 03/02/17 07:00 15:00 23:00 07:00 15:00 23:00 Intake Total 1552 ml 1150 ml Output Total 0 ml 400 ml Balance 1552 ml 750 ml Intake Oral 0 ml 0 ml IV Total 1552 ml 1150 ml Output Urine Total 0 ml 400 ml # Voids 0 1 # Bowel Movements 0 Result Diagram: 03/02/17 0540 03/02/17 0540 Objective Remarks GENERAL: NAD, A&Ox0 SKIN: Warm and dry. HEAD: Normocephalic. EYES: No scleral icterus. No injection or drainage. NECK: Supple, trachea midline. No JVD or lymphadenopathy. CARDIOVASCULAR: Regular rate and rhythm without murmurs, gallops, or rubs. RESPIRATORY: Breath sounds equal bilaterally. No accessory muscle use. GASTROINTESTINAL: Abdomen soft, non-tender, nondistended. MUSCULOSKELETAL: No cyanosis, or edema. Medications and IVs Administered Medications Medications (Trade) Dose Ordered Sig/Miquel Route PRN Reason Start Time Stop Time Status Last Admin Dose Admin Dextrose (D50w (Vial) Inj) 50 ml UNSCH PRN IV HYPOGLYCEMIA-SEE COMMENTS 03/01/17 11:45 03/01/17 11:48 Sodium Chloride 2 ml 2 ml BID IV FLUSH 03/01/17 21:00 03/01/17 22:06 Ceftriaxone Sodium/Sodium Chloride (Rocephin Inj/NS Inj) 100 ml @ 200 mls/hr Q24H IV 03/01/17 15:00 03/01/17 14:48 Heparin Sodium (Porcine) 5000 units 5,000 units Q8HR SQ 03/01/17 22:00 03/02/17 05:50 Dextrose/Sodium Chloride/Sterile Water (D50w (Vial) Inj/ Sodium Chloride 23.4% Inj/Sterile Water For Inj) 1,000 ml @ 150 mls/hr Q6H40M IV 03/01/17 18:00 03/02/17 09:02 A/P Problem List: (1) Altered mental status ICD Code: R41.82 (2) Dilantin toxicity ICD Code: T42.0X1A (3) Acute kidney injury ICD Code: N17.9 (4) UTI (urinary tract infection) ICD Code: N39.0 (5) Encephalopathy ICD Code: G93.40 Assessment and Plan Assessment and plan 76-year-old male admitted with encephalopathy secondary to Dilantin toxicity and a UTI. Toxic/Metabolic Encephalopathy Dilantin Toxicity Some of this may be secondary to UTI. Continue to follow urine cultures. Continue antibiotics. Supportive care Dilantin level has not significantly improved yet Monitor Dilantin level Follow on telemetry Nothing by mouth for now Speech therapy pending Neuro checks next Urinary tract infection IV Rocephin Follow urine cultures next Acute kidney injury Resolved Follow renal function Hyperkalemia This was secondary to dehydration Resolved with IV hydration Follow potassium levels Atrial Fibrillation Follow on telemetry Subcutaneous heparin Nothing by mouth status, metoprolol and Pradaxa are on hold Hypoglycemia Blood sugars are stabilized overnight Follow blood glucose Continue DT 0.5 and half normal saline at 150 cc per hour Hypothyroidism IV levothyroxine started Transitioned to by mouth treatment once patient's encephalopathy improves Seizure Disorder Monitor for seizure activity Dilantin is being held as above DVT Prophylaxis Subcutaneous heparin Once patient is able to take by mouth intake we'll change him back to his baseline treatment of Pradaxa Problem Qualifiers (1) Altered mental status: Qualified Code: R41.82 - Altered mental status, unspecified altered mental status type (2) Dilantin toxicity: Qualified Code: T42.0X4A - Dilantin toxicity, undetermined intent, initial encounter (3) UTI (urinary tract infection): Qualified Code: N39.0 - Urinary tract infection without hematuria, site unspecified Demarco Middleton MD Mar 02, 2017 11:30
--- NOTE | 2017-03-02 14:06 | HHI.PR ---
Subjective Remarks Patient is non verbal, not able to communicate due to his dementia. No fevers reported stable vital signs Objective Vitals Vital Signs Date Time Temp Pulse Resp B/P Pulse Ox O2 Delivery O2 Flow Rate FiO2 03/02/17 12:00 98.2 72 18 149/69 100 03/02/17 08:04 70 03/02/17 08:00 71 18 135/63 100 03/02/17 04:00 95.7 76 18 148/64 97 03/02/17 00:00 95.5 76 15 111/74 96 03/01/17 22:00 96 Nasal Cannula 2.00 03/01/17 22:00 76 03/01/17 20:12 96.0 75 14 129/61 96 03/01/17 19:12 100 Nasal Cannula 2.00 03/01/17 16:05 95.3 75 17 125/59 100 03/01/17 15:31 78 18 142/87 98 I/O 03/01/17 03/01/17 03/01/17 03/02/17 03/02/17 03/02/17 07:00 15:00 23:00 07:00 15:00 23:00 Intake Total 1552 ml 1150 ml Output Total 0 ml 400 ml Balance 1552 ml 750 ml Intake Oral 0 ml 0 ml IV Total 1552 ml 1150 ml Output Urine Total 0 ml 400 ml # Voids 0 1 # Bowel Movements 0 Result Diagram: 03/02/17 0540 03/02/17 0540 Imaging Last Impressions Head CT 03/01/17 1104 Signed Impressions: Service Date/Time: Wednesday, March 01, 2017 11:58 - CONCLUSION: No acute disease. Иван Flor MD FACR Chest X-Ray 03/01/17 1104 Signed Impressions: Service Date/Time: Wednesday, March 01, 2017 11:10 - CONCLUSION: No acute disease. Иван Flor MD FACR Objective Remarks GENERAL: NAD, A&Ox0 SKIN: Warm and dry. HEAD: Normocephalic. EYES: No scleral icterus. No injection or drainage. NECK: Supple, trachea midline. No JVD or lymphadenopathy. CARDIOVASCULAR: Regular rate and rhythm without murmurs, gallops, or rubs. RESPIRATORY: Breath sounds equal bilaterally. No accessory muscle use. GASTROINTESTINAL: Abdomen soft, non-tender, nondistended. MUSCULOSKELETAL: No cyanosis, or edema. Procedures none Medications and IVs Current Medications Medications (Trade) Dose Ordered Sig/Miquel Route Start Time Stop Time Status Last Admin (D50w (Vial) Inj) 50 ml UNSCH PRN IV 03/01/17 11:45 03/01/17 11:48 (NS Flush) 2 ml UNSCH PRN IV FLUSH 03/01/17 14:30 (NS Flush) 2 ml BID IV FLUSH 03/01/17 21:00 03/01/17 22:06 (Narcan Inj) 0.4 mg UNSCH PRN IV 03/01/17 14:30 (Ramona-Colace) 1 tab BID PO 03/01/17 21:00 (Milk Of Magnesia Liq) 30 ml Q12H PRN PO 03/01/17 14:30 (Senokot) 17.2 mg Q12H PRN PO 03/01/17 14:30 (Dulcolax Supp) 10 mg DAILY PRN RECTAL 03/01/17 14:30 Lactulose 30 ml 30 ml DAILY PRN PO 03/01/17 14:30 (Rocephin Inj/NS Inj) 100 ml @ 200 mls/hr Q24H IV 03/01/17 15:00 03/02/17 15:29 (Heparin Inj) 5,000 units Q8HR SQ 03/01/17 22:00 03/02/17 13:08 Levothyroxine Sodium 25 mcg 25 mcg DAILY@06 IV PUSH 03/03/17 06:00 (1/2 NS 1000 ml Inj) 1,000 ml @ 125 mls/hr Q8H IV 03/02/17 14:30 03/02/17 15:29 Urinary Catheter: Yes Assessment to: Remove Vascular Central Line Catheter: No A/P Problem List: (1) Encephalopathy ICD Code: G93.40 Status: Acute (2) Altered mental status ICD Code: R41.82 Status: Acute (3) Dilantin toxicity ICD Code: T42.0X1A Status: Acute (4) UTI (urinary tract infection) ICD Code: N39.0 Status: Acute (5) Acute kidney injury ICD Code: N17.9 Status: Acute Assessment and Plan 6-year-old male admitted with encephalopathy secondary to Dilantin toxicity and a UTI. Toxic/Metabolic Encephalopathy Dilantin Toxicity Possibly secondary to inner tract infection Cultures are growing gram-negative rods Continue IV Rocephin Supportive care Dilantin level has not significantly improved yet Monitor Dilantin level Follow on telemetry Nothing by mouth for now Speech therapy elevated patient and recommended nothing by mouth Neuro checks next Urinary tract infection IV Rocephin Follow urine cultures - growing gram negative rods Acute kidney injury Resolved after IV fluid administration. Follow renal function Hyperkalemia This was secondary to dehydration Resolved with IV hydration Follow potassium levels Atrial Fibrillation Follow on telemetry Subcutaneous heparin Nothing by mouth status, metoprolol and Pradaxa are on hold Hypoglycemia Blood sugars are stable Follow-up Accu-Cheks Continue DT 0.5 and half normal saline at 150 cc per hour Hypothyroidism IV levothyroxine started Transitioned to by mouth treatment once patient's encephalopathy improves Seizure Disorder No seizure activity Monitor for seizure activity Dilantin is being held as above DVT Prophylaxis Subcutaneous heparin Once patient is able to take by mouth intake we'll change him back to his baseline treatment of Pradaxa Discharge Planning Patient still NPO. Continue to monitor in the medical floor. Problem Qualifiers (1) Altered mental status: Qualified Code: R41.82 - Altered mental status, unspecified altered mental status type (2) Dilantin toxicity: Qualified Code: T42.0X4A - Dilantin toxicity, undetermined intent, initial encounter (3) UTI (urinary tract infection): Qualified Code: N39.0 - Urinary tract infection without hematuria, site unspecified Mike Brown MD Mar 02, 2017 14:06
[2017-03-02] MEDS ORDERED: SODIUM CHLOR 0.45% 1000 ML INJ 1,000 ML IV SCH (14:30)
[2017-03-02] MEDS ORDERED: SODIUM CHLOR 0.9% 1000 ML INJ 1,000 ML IV SCH (14:30)
[2017-03-02] MEDS: cefTRIAXone INJ 1,000 MG in SODIUM CHLORIDE 0.9% INJ 100 ML IV SCH (15:29)
[2017-03-02] MEDS: DEXT 5%-NACL 0.45% 1000 ML INJ 1,000 ML IV SCH (21:17)
--- NOTE | 2017-03-02 21:49 | EKG ---
Date Performed: 03/01/2017 Time Performed: 11:31:00 PTAGE: 76 years EKG: Sinus rhythm NONSPECIFIC T-WAVE ABNORMALITY Since previous tracing, no significant change noted BORDERLINE ECG PREVIOUS TRACING : 07/01/2016 04.08 DOCTOR: Mague Mcnally Interpretating Date/Time 03/02/2017 21:47:57
[2017-03-03] VITALS (7 sets, daily range): BP systolic 103–138; BP diastolic 43–66; PULSE 69–81; RESP 16–18; TEMP 95.9–96.5; O2SAT 98–100
[2017-03-03] MEDS: DEXT 5%-NACL 0.45% 1000 ML INJ 1,000 ML IV SCH ×3 (04:07→18:22)
[2017-03-03] MEDS: LEVOTHYROXINE SODIUM 100 MCG VIAL IV PUSH SCH (06:00)
[2017-03-03] MEDS: HEPARIN SODIUM - SQ 10,000 UNITS/ML VIAL SQ SCH (06:25)
[2017-03-03 08:05] LABS: AUTOMATED NEUTROPHIL # 3.5 TH/MM3 (1.8-7.7); BASOPHIL % 0.9 % (0.0-2.0); EOSINOPHIL # 0.2 TH/MM3 (0-0.4); EOSINOPHIL % 2.6 % (0.0-4.0); HEMATOCRIT 26.8 % (39.0-51.0); HEMO FLAGS DIFF FINAL; LYMPH % 23.8 % (9.0-44.0); LYMPHOCYTE # 1.4 TH/MM3 (1.0-4.8); MEAN CELL VOLUME 93.8 FL (80.0-100.0); MEAN CORPUSCULAR HEMOGLOBIN 30.6 PG (27.0-34.0); MEAN CORPUSCULAR HGB CONC 32.6 % (32.0-36.0); MONO % 10.9 % (0.0-8.0); NEUT % 61.8 % (16.0-70.0); PLATELET COUNT 168 TH/MM3 (150-450); RED BLOOD COUNT 2.85 MIL/MM3 (4.50-5.90); RED CELL DISTRIBUTION WIDTH 15.4 % (11.6-17.2); WHITE BLOOD COUNT 5.7 TH/MM3 (4.0-11.0)
[2017-03-03 08:18] LABS: ALT (GPT) 44 U/L (12-78); ANION GAP 6 MEQ/L (5-15); AST (GOT) 47 U/L (15-37); BICARBONATE 29.1 MEQ/L (21.0-32.0); BLOOD UREA NITROGEN 19 MG/DL (7-18); CHLORIDE 106 MEQ/L (98-107); GLOMERULAR FILTRATION RATE 99 ML/MIN (>89); MAGNESIUM 2.1 MG/DL (1.5-2.5); SODIUM (NA) 141 MEQ/L (136-145)
[2017-03-03 08:25] LABS: ALKALINE PHOSPHATASE 177 U/L (45-117); TOTAL BILIRUBIN ADULT LESS THAN 0.1 MG/DL (0.2-1.0)
[2017-03-03] MEDS: SODIUM CHLORIDE 0.9% FLUSH 10 ML FLUSH IV FLUSH SCH ×2 (09:00→20:53)
[2017-03-03] MEDS: DOCUSATE SODIUM 50 MG/SENNA 8.6 MG TAB PO SCH ×2 (09:00→20:53)
[2017-03-03 12:08] LABS: FREE T3 1.5 PG/ML (2.18-3.98); FREE T4 0.53 NG/DL (0.76-1.46)
[2017-03-03] MEDS ORDERED: POTASSIUM PHOSPHATE/SODIUM PHOSPHATE 250 MG TAB PO SCH (14:00)
[2017-03-03] MEDS: cefTRIAXone INJ 1,000 MG in SODIUM CHLORIDE 0.9% INJ 100 ML IV SCH (14:48)
--- NOTE | 2017-03-03 17:55 | HHI.PR ---
Subjective Remarks Deferred entry - patient seen at 3:15 pm Patient is more awake but still non verbal opens eyes when his name is called RN states that patient squeezed her hand Vital signs stable Objective Vitals Vital Signs Date Time Temp Pulse Resp B/P Pulse Ox O2 Delivery O2 Flow Rate FiO2 03/03/17 16:00 96.0 81 18 138/58 100 03/03/17 12:00 96.2 73 18 135/54 100 03/03/17 09:15 Nasal Cannula 2.00 03/03/17 09:15 69 03/03/17 08:00 96.2 69 18 107/51 98 03/03/17 04:45 95.9 75 17 103/43 98 03/03/17 00:15 95.9 73 18 123/59 98 03/02/17 23:00 73 03/02/17 20:20 96.3 73 18 121/56 98 03/02/17 20:00 98 Nasal Cannula 2.00 I/O 03/02/17 03/02/17 03/02/17 03/03/17 03/03/17 03/03/17 07:00 15:00 23:00 07:00 15:00 23:00 Intake Total 1150 ml 0 ml 829 ml 798 ml 0 ml Output Total 400 ml 650 ml 225 ml 460 ml 850 ml Balance 750 ml -650 ml 604 ml 338 ml -850 ml Intake Oral 0 ml 0 ml 0 ml 0 ml 0 ml IV Total 1150 ml 829 ml 798 ml Output Urine Total 400 ml 650 ml 225 ml 460 ml 850 ml # Voids 1 # Bowel Movements 0 0 0 0 0 Result Diagram: 03/03/17 0610 03/03/17 0726 Imaging Last Impressions Head CT 03/01/17 1104 Signed Impressions: Service Date/Time: Wednesday, March 01, 2017 11:58 - CONCLUSION: No acute disease. Иван Flor MD FACR Chest X-Ray 03/01/17 110 Signed Impressions: Service Date/Time: Wednesday, March 01, 2017 11:10 - CONCLUSION: No acute disease. Иван Flor MD FACR Objective Remarks GENERAL: NAD, A&Ox0 SKIN: Warm and dry. HEAD: Normocephalic. EYES: No scleral icterus. No injection or drainage. NECK: Supple, trachea midline. No JVD or lymphadenopathy. CARDIOVASCULAR: Regular rate and rhythm without murmurs, gallops, or rubs. RESPIRATORY: Breath sounds equal bilaterally. No accessory muscle use. GASTROINTESTINAL: Abdomen soft, non-tender, nondistended. MUSCULOSKELETAL: No cyanosis, or edema. Procedures none Medications and IVs Current Medications Medications (Trade) Dose Ordered Sig/Miquel Route Start Time Stop Time Status Last Admin (D50w (Vial) Inj) 50 ml UNSCH PRN IV 03/01/17 11:45 03/01/17 11:48 (NS Flush) 2 ml UNSCH PRN IV FLUSH 03/01/17 14:30 (NS Flush) 2 ml BID IV FLUSH 03/01/17 21:00 03/03/17 09:00 (Narcan Inj) 0.4 mg UNSCH PRN IV 03/01/17 14:30 (Ramona-Colace) 1 tab BID PO 03/01/17 21:00 (Milk Of Magnesia Liq) 30 ml Q12H PRN PO 03/01/17 14:30 (Senokot) 17.2 mg Q12H PRN PO 03/01/17 14:30 (Dulcolax Supp) 10 mg DAILY PRN RECTAL 03/01/17 14:30 Lactulose 30 ml 30 ml DAILY PRN PO 03/01/17 14:30 (Rocephin Inj/NS Inj) 100 ml @ 200 mls/hr Q24H IV 03/01/17 15:00 03/03/17 14:48 (Heparin Inj) 5,000 units Q8HR SQ 03/01/17 22:00 Hold 03/03/17 06:25 Levothyroxine Sodium 25 mcg 25 mcg DAILY@06 IV PUSH 03/03/17 06:00 (D5W-1/2 NS 1000 ml Inj) 1,000 ml @ 125 mls/hr Q8H IV 03/02/17 19:45 03/03/17 11:45 (K-Phos Neutral) 250 mg Q8HR PO 03/03/17 14:00 Urinary Catheter: No Vascular Central Line Catheter: No A/P Problem List: (1) Encephalopathy ICD Code: G93.40 Status: Acute (2) Altered mental status ICD Code: R41.82 Status: Acute (3) Dilantin toxicity ICD Code: T42.0X1A Status: Acute (4) UTI (urinary tract infection) ICD Code: N39.0 Status: Acute (5) Acute kidney injury ICD Code: N17.9 Status: Acute Assessment and Plan 6-year-old male admitted with encephalopathy secondary to Dilantin toxicity and a UTI. Toxic/Metabolic Encephalopathy Dilantin Toxicity Head CT negative Possibly secondary to UTI. Cultures are growing E Coli. Continue IV Rocephin, Fu sensitivities Supportive care Dilantin level has not significantly improved yet Monitor Dilantin level Follow on telemetry Nothing by mouth for now Speech therapy evaluation - failed - recommended npo Neuro checks next Urinary tract infection IV Rocephin Follow urine cultures - growing gram negative rods Acute kidney injury Resolved after IV fluid administration. Follow renal function Hyperkalemia This was secondary to dehydration Resolved with IV hydration Follow potassium levels Atrial Fibrillation Follow on telemetry Pradaxa held by Dr Middleton due to NPO and patient placed on heparin SQ. Will place patient on Lovenox SQ therapeutic dose Hypoglycemia Blood sugars are stable Follow-up Accu-Cheks Continue DT 0.5 and half normal saline at 150 cc per hour Hypothyroidism IV levothyroxine started Transitioned to by mouth treatment once patient's encephalopathy improves Seizure Disorder No seizure activity Monitor for seizure activity Dilantin is being held as above /7 Consult neurology check EEG Hypophosphatemia Likely secondary to nutritional deficiency due to poor oral intake. I will replace IV and continue to monitor phosphorus. DVT Prophylaxis Lovenox SQ Discharge Planning Continue to monitor in the medical floor. Dilantin level elevated. Neurology consulted. Problem Qualifiers (1) Altered mental status: Qualified Code: R41.82 - Altered mental status, unspecified altered mental status type (2) Dilantin toxicity: Qualified Code: T42.0X4A - Dilantin toxicity, undetermined intent, initial encounter (3) UTI (urinary tract infection): Qualified Code: N39.0 - Urinary tract infection without hematuria, site unspecified Mike Brown MD Mar 03, 2017 17:54
[2017-03-03] MEDS ORDERED: LEVOTHYROXINE SODIUM 100 MCG VIAL IV PUSH ONE ×2 (18:00)
[2017-03-03 18:35] LABS: TRANSFERRIN IRON PROFILE 114 MG/DL (200-360)
[2017-03-03 18:38] LABS: FERRITIN 390 NG/ML (26-388)
[2017-03-03] MEDS ORDERED: SODIUM PHOSPHATE INJ 15 MMOL in SODIUM CHLORIDE 0.9% INJ 150 ML IV ONE (21:00)
[2017-03-04] VITALS (7 sets, daily range): BP systolic 137–156; BP diastolic 66–72; PULSE 73–85; RESP 16–18; TEMP 95.6–97.1; O2SAT 96–99
[2017-03-04] MEDS: DEXT 5%-NACL 0.45% 1000 ML INJ 1,000 ML IV SCH ×3 (02:59→20:09)
[2017-03-04] MEDS: LEVOTHYROXINE SODIUM 100 MCG VIAL IV PUSH SCH (04:40)
[2017-03-04 06:20] LABS: HEMATOCRIT 28.6 % (39.0-51.0); MEAN CELL VOLUME 92.9 FL (80.0-100.0); MEAN CORPUSCULAR HEMOGLOBIN 30.6 PG (27.0-34.0); PLATELET COUNT 169 TH/MM3 (150-450); RED BLOOD COUNT 3.08 MIL/MM3 (4.50-5.90); REVIEW FLAG FINAL; WHITE BLOOD COUNT 5.4 TH/MM3 (4.0-11.0)
[2017-03-04 06:41] LABS: BICARBONATE 29.5 MEQ/L (21.0-32.0); MAGNESIUM 1.9 MG/DL (1.5-2.5); POTASSIUM 3.7 MEQ/L (3.5-5.1)
[2017-03-04] MEDS: DOCUSATE SODIUM 50 MG/SENNA 8.6 MG TAB PO SCH ×2 (08:28→21:09)
[2017-03-04] MEDS: SODIUM CHLORIDE 0.9% FLUSH 10 ML FLUSH IV FLUSH SCH ×2 (08:28→21:08)
--- NOTE | 2017-03-04 10:33 | HHI.PR ---
Subjective Remarks Patient is more awake follows commands and answers questions today denies pain Objective Vitals Vital Signs Date Time Temp Pulse Resp B/P Pulse Ox O2 Delivery O2 Flow Rate FiO2 03/04/17 08:00 95.6 73 18 139/66 99 03/04/17 04:50 96.5 80 16 137/67 99 03/04/17 00:50 97.1 79 16 139/70 99 03/03/17 21:01 Nasal Cannula 2.00 03/03/17 20:55 96.5 80 16 132/66 98 03/03/17 16:00 96.0 81 18 138/58 100 03/03/17 12:00 96.2 73 18 135/54 100 I/O 03/03/17 03/03/17 03/03/17 03/04/17 03/04/17 03/04/17 07:00 15:00 23:00 07:00 15:00 23:00 Intake Total 798 ml 1118 ml 537 ml 0 ml Output Total 460 ml 850 ml 550 ml 300 ml Balance 338 ml 268 ml -13 ml -300 ml Intake Oral 0 ml 0 ml 0 ml IV Total 798 ml 1118 ml 537 ml Output Urine Total 460 ml 850 ml 550 ml 300 ml # Bowel Movements 0 0 0 0 Result Diagram: 03/04/17 0542 03/04/17 0542 Imaging Last Impressions Head CT 03/01/17 1104 Signed Impressions: Service Date/Time: Wednesday, March 01, 2017 11:58 - CONCLUSION: No acute disease. Иван Flor MD FACR Chest X-Ray 03/01/17 1104 Signed Impressions: Service Date/Time: Wednesday, March 01, 2017 11:10 - CONCLUSION: No acute disease. Иван Flor MD FACR Objective Remarks GENERAL: NAD, A&Ox1 SKIN: Warm and dry. HEAD: Normocephalic. EYES: No scleral icterus. No injection or drainage. NECK: Supple, trachea midline. No JVD or lymphadenopathy. CARDIOVASCULAR: Regular rate and rhythm without murmurs, gallops, or rubs. RESPIRATORY: Breath sounds equal bilaterally. No accessory muscle use. GASTROINTESTINAL: Abdomen soft, non-tender, nondistended. MUSCULOSKELETAL: No cyanosis, or edema. NEURO: Awake and alert. Follows simple commands. Speech is slow. Procedures none Medications and IVs Current Medications Medications (Trade) Dose Ordered Sig/Miquel Route Start Time Stop Time Status Last Admin (D50w (Vial) Inj) 50 ml UNSCH PRN IV 03/01/17 11:45 03/01/17 11:48 (NS Flush) 2 ml UNSCH PRN IV FLUSH 03/01/17 14:30 (NS Flush) 2 ml BID IV FLUSH 03/01/17 21:00 03/03/17 09:00 (Narcan Inj) 0.4 mg UNSCH PRN IV 03/01/17 14:30 (Ramona-Colace) 1 tab BID PO 03/01/17 21:00 (Milk Of Magnesia Liq) 30 ml Q12H PRN PO 03/01/17 14:30 (Senokot) 17.2 mg Q12H PRN PO 03/01/17 14:30 (Dulcolax Supp) 10 mg DAILY PRN RECTAL 03/01/17 14:30 Lactulose 30 ml 30 ml DAILY PRN PO 03/01/17 14:30 (Rocephin Inj/NS Inj) 100 ml @ 200 mls/hr Q24H IV 03/01/17 15:00 03/03/17 14:48 Levothyroxine Sodium 25 mcg 25 mcg DAILY@06 IV PUSH 03/03/17 06:00 03/04/17 04:40 (D5W-1/2 NS 1000 ml Inj) 1,000 ml @ 125 mls/hr Q8H IV 03/02/17 19:45 03/03/17 18:22 Urinary Catheter: No Vascular Central Line Catheter: No A/P Problem List: (1) Encephalopathy ICD Code: G93.40 Status: Acute (2) Altered mental status ICD Code: R41.82 Status: Acute (3) Dilantin toxicity ICD Code: T42.0X1A Status: Acute (4) UTI (urinary tract infection) ICD Code: N39.0 Status: Acute (5) Acute kidney injury ICD Code: N17.9 Status: Acute Assessment and Plan 6-year-old male admitted with encephalopathy secondary to Dilantin toxicity and a UTI. Toxic/Metabolic Encephalopathy Dilantin Toxicity Head CT negative Possibly secondary to UTI. Supportive care Dilantin level slowly trending down Monitor Dilantin level Follow on telemetry Nothing by mouth for now fu speech therapy recommendations - Keep npo Continue neurochecks Urinary tract infection Cultures are growing E Coli. Continue IV Rocephin, Fu sensitivities Acute kidney injury Resolved after IV fluid administration. Follow renal function Hyperkalemia This was secondary to dehydration Resolved with IV hydration Follow potassium levels Atrial Fibrillation Follow on telemetry Pradaxa held by Dr Middleton due to NPO and patient placed on heparin SQ. 03/[address] patient on Lovenox SQ therapeutic dose - Hemoglobin had been trending down before heparin SQ was held. Hemoglobin now stable, will start patient on Lovenox SQ. Will resume Pradaxa once patient able to take oral medications. Hypoglycemia Blood sugars are stable Follow-up Accu-Cheks 03/04 ContinueD5 1/ NS at 150 cc per hour - patient still NPO Hypothyroidism IV levothyroxine started Transitioned to by mouth treatment once patient's encephalopathy improves Seizure Disorder No seizure activity Monitor for seizure activity Dilantin is being held as above 03/04 check EEG - negative only showed slowing. Appreciate neurology recommendations. The case was discussed with Dr. Rasmussen who recommended following Dilantin levels once it drops down to 20 resuming Dilantin level at a lower dose. I will continue to follow his recommendations. Hypophosphatemia Likely secondary to nutritional deficiency due to poor oral intake. Phosphorus was replaced IV and levels are not normal. Continue to monitor levels. DVT Prophylaxis Lovenox SQ Discharge Planning Continue to monitor in the medical floor. Dilantin level elevated. Patient still NPO Problem Qualifiers (1) Altered mental status: Qualified Code: R41.82 - Altered mental status, unspecified altered mental status type (2) Dilantin toxicity: Qualified Code: T42.0X4A - Dilantin toxicity, undetermined intent, initial encounter (3) UTI (urinary tract infection): Qualified Code: N39.0 - Urinary tract infection without hematuria, site unspecified Mike Brown MD Mar 04, 2017 10:33
--- NOTE | 2017-03-04 11:14 | MG ---
cc: LACHELLE CARNES M.D. Lab No: [id number] Date: 03/04/2017 : 1940 Sex: M TECHNIQUE 17-channel EEG. DESCRIPTION The background rhythm reveals an alpha rhythm, frequency roughly 8 Hz. There is some slowing in the theta range, probably related to drowsiness. Most of the tracing is quite slow and then it becomes even slower in the delta frequency at roughly 3-4 Hz. There are no lateralizing features. There are no epileptiform features. Photic stimulation was performed in a stepwise fashion but there was no significant driving response. INTERPRETATION I believe this is an abnormal study with diffuse slowing most likely due to a [id number] encephalopathy. MD JANETT Gunn/NELDA /10:53 AM /11:05 AM
--- NOTE | 2017-03-04 11:34 | MB ---
cc: ZULY SALDAÑA M.D. DATE OF CONSULTATION: 03/04/2017 REASON FOR CONSULTATION: He is seen in neurological consultation. He is a 76-year-old man seen in consultation regards to decreased responsiveness, Dilantin toxicity and seizures in the past. The patient reportedly lives in the [facility] and became less responsive. There and was refusing to take medications and subsequently brought to the hospital found with Dilantin level being around 49 and he has been in the hospital since March 01. There is been no seizures here in the hospital. His Dilantin level is gradually, slowly coming down, today's level is 36.7. Otherwise he has been treated for urinary tract infection. PAST MEDICAL HISTORY: His history includes dementia. Schizoaffective factors disorder. Atrial fibrillation on Pradaxa. RADIOLOGIC FINDINGS: The CT brain showed no acute abnormality. LABORATORY FINDINGS: Labs were all reviewed. PHYSICAL EXAMINATION: Showed the patient is to be asleep but awakened and then he mumbled a few words and at some point said something about seizure. He occasionally followed simple commands, he was able to restart gripping and moving the lower extremities upon request. He did not seem to be in any distress. He would not count fingers to me. His the gaze was a primary and appropriate and he looks towards the stimulation. There is some mild mouth dyskinetic type of movements. No facial symmetry. Muscle tone is increased, diffusely with some generalized muscle wasting. Reflexes present at the elbows and knees, difficult to at least on the ankles. Plantar response was two. The nursing staff provided the current status and admits the patient is being a little bit more alert and responsive today. An EEG was in progress, the study is seen briefly showing some generalized slowing and no overt seizure activity / epileptiform discharges. ASSESSMENT 1. Dilantin toxicity / metabolic encephalopathy. 2. Dementia / chronic cognitive impairment. 3. Noted a history of schizoaffective disorder. 4. History of seizures but none during this hospitalization. 5. Ongoing treatment for urinary tract infection. 6. Atrial fibrillation on Pradaxa. 7. CT brain is negative for acute process. PLAN: I would suggest continuing the medical care and monitor the Dilantin level daily as currently being done. Once the level is around 20, then I would resume his Dilantin. I would start with Dilantin 300 mg a day unless we have additional history on previous Dilantin levels being low with such a dose. We reported that dilation dose from the nursing facility was 400 mg twice a day. Patient is also reportedly on valproic acid 750 mg twice a day. It appears that he is not been receiving these medications since admission. I do not see problem in continuing to hold this medication as well. Thank you for asking us to assist in his care. MD JUAN JOSÉ Wells/ /10:42 AM /11:22 AM
[2017-03-04] MEDS: cefTRIAXone INJ 1,000 MG in SODIUM CHLORIDE 0.9% INJ 100 ML IV SCH (14:57)
[2017-03-05] VITALS (7 sets, daily range): BP systolic 144–186; BP diastolic 74–89; PULSE 82–86; RESP 16–20; TEMP 95.3–97; O2SAT 95–98
[2017-03-05] MEDS: DEXT 5%-NACL 0.45% 1000 ML INJ 1,000 ML IV SCH ×5 (03:45→21:26)
[2017-03-05] MEDS: LEVOTHYROXINE SODIUM 100 MCG VIAL IV PUSH SCH (05:31)
[2017-03-05] MEDS: DOCUSATE SODIUM 50 MG/SENNA 8.6 MG TAB PO SCH ×2 (09:34→21:00)
[2017-03-05] MEDS: SODIUM CHLORIDE 0.9% FLUSH 10 ML FLUSH IV FLUSH SCH ×2 (09:34→21:13)
--- NOTE | 2017-03-05 09:37 | HHI.PR ---
Review/Management Daily Summary 03/05 spoke to sc RN stable level of alertness slowly improving dilantin level remains about the same monir dilantin level daily please call prn Subjective Subjective Comments No acute events reported No headache No chest pain No dyspnea Active Medications Current Medications Medications (Trade) Dose Ordered Sig/Miquel Route Start Time Stop Time Status Last Admin (D50w (Vial) Inj) 50 ml UNSCH PRN IV 03/01/17 11:45 03/01/17 11:48 (NS Flush) 2 ml UNSCH PRN IV FLUSH 03/01/17 14:30 (NS Flush) 2 ml BID IV FLUSH 03/01/17 21:00 03/03/17 09:00 (Narcan Inj) 0.4 mg UNSCH PRN IV 03/01/17 14:30 (Ramona-Colace) 1 tab BID PO 03/01/17 21:00 (Milk Of Magnesia Liq) 30 ml Q12H PRN PO 03/01/17 14:30 (Senokot) 17.2 mg Q12H PRN PO 03/01/17 14:30 (Dulcolax Supp) 10 mg DAILY PRN RECTAL 03/01/17 14:30 Lactulose 30 ml 30 ml DAILY PRN PO 03/01/17 14:30 (Rocephin Inj/NS Inj) 100 ml @ 200 mls/hr Q24H IV 03/01/17 15:00 03/04/17 14:57 Levothyroxine Sodium 25 mcg 25 mcg DAILY@06 IV PUSH 03/03/17 06:00 03/05/17 05:31 (D5W-1/2 NS 1000 ml Inj) 1,000 ml @ 125 mls/hr Q8H IV 03/02/17 19:45 03/05/17 06:08 Allergies Allergies Coded Allergies *MDRO Multi-Drug Resistant Organism (Verified Adverse Reaction, Unknown, ) Review of Systems All other ROS: ROS reviewed as documented in chart Exam I&O / VS 03/04/17 03/04/17 03/05/17 15:00 23:00 07:00 Intake Total 680 ml Output Total 1675 ml 700 ml Balance 680 ml -1675 ml -700 ml IV Total 680 ml Output Urine Total 1675 ml 700 ml # Bowel Movements 0 Vital Signs Date Time Temp Pulse Resp B/P Pulse Ox O2 Delivery O2 Flow Rate FiO2 03/05/17 08:00 95.7 82 20 159/83 95 03/05/17 04:50 97.0 83 17 147/79 97 03/05/17 00:45 96.3 82 17 144/78 96 03/04/17 21:49 Nasal Cannula 2.00 03/04/17 20:55 96.1 85 17 152/72 96 03/04/17 16:00 96.0 81 18 146/70 97 03/04/17 15:08 74 03/04/17 12:00 95.7 78 18 156/68 98 General: No acute distress Eye: EOMI Cardiology: Normal rate Objective Micro and Labs Laboratory Tests Test 03/05/17 06:33 Thyroid Stimulating Hormone 5.770 3rd Gen Phenytoin (Dilantin) Level 37.3 Date/Time Procedure Status Source Growth 03/01/17 12:26 Urine Culture - Final Complete Urine Catheterized Urine Escherichia Coli 03/01/17 11:45 Aerobic Blood Culture - Preliminary Resulted Blood Peripheral NO GROWTH IN 3 DAYS 03/01/17 11:45 Anaerobic Blood Culture - Preliminary Resulted Blood Peripheral NO GROWTH IN 3 DAYS Dixon Rasmussen MD Mar 05, 2017 09:37
[2017-03-05] MEDS: cefTRIAXone INJ 1,000 MG in SODIUM CHLORIDE 0.9% INJ 100 ML IV SCH (14:54)
--- NOTE | 2017-03-05 17:02 | HHI.PR ---
Subjective Remarks Called by RN - BP very elevated into the 180's Patient is more awake afebrile Objective Vitals Vital Signs Date Time Temp Pulse Resp B/P Pulse Ox O2 Delivery O2 Flow Rate FiO2 03/05/17 12:00 95.3 86 20 159/74 96 03/05/17 08:00 95.7 82 20 159/83 95 03/05/17 04:50 97.0 83 17 147/79 97 03/05/17 00:45 96.3 82 17 144/78 96 03/04/17 21:49 Nasal Cannula 2.00 03/04/17 20:55 96.1 85 17 152/72 96 I/O 03/04/17 03/04/17 03/04/17 03/05/17 03/05/17 03/05/17 07:00 15:00 23:00 07:00 15:00 23:00 Intake Total 0 ml 680 ml 2185 ml Output Total 300 ml 1675 ml 700 ml Balance -300 ml 680 ml -1675 ml -700 ml 2185 ml Intake Oral 0 ml IV Total 680 ml 2185 ml Output Urine Total 300 ml 1675 ml 700 ml # Bowel Movements 0 0 Result Diagram: 03/04/17 0542 03/04/17 0542 Imaging Last Impressions Head CT 03/01/17 1104 Signed Impressions: Service Date/Time: Wednesday, March 01, 2017 11:58 - CONCLUSION: No acute disease. Иван Flor MD FACR Chest X-Ray 03/01/17 1104 Signed Impressions: Service Date/Time: Wednesday, March 01, 2017 11:10 - CONCLUSION: No acute disease. Иван Flor MD FACR Objective Remarks GENERAL: NAD, A&Ox1 SKIN: Warm and dry. HEAD: Normocephalic. EYES: No scleral icterus. No injection or drainage. NECK: Supple, trachea midline. No JVD or lymphadenopathy. CARDIOVASCULAR: Regular rate and rhythm without murmurs, gallops, or rubs. RESPIRATORY: Breath sounds equal bilaterally. No accessory muscle use. GASTROINTESTINAL: Abdomen soft, non-tender, nondistended. MUSCULOSKELETAL: No cyanosis, or edema. NEURO: Awake and alert. Follows simple commands. Speech is slow. Procedures none Medications and IVs Current Medications Medications (Trade) Dose Ordered Sig/Miquel Route Start Time Stop Time Status Last Admin (D50w (Vial) Inj) 50 ml UNSCH PRN IV 03/01/17 11:45 03/01/17 11:48 (NS Flush) 2 ml UNSCH PRN IV FLUSH 03/01/17 14:30 (NS Flush) 2 ml BID IV FLUSH 03/01/17 21:00 03/05/17 21:13 (Narcan Inj) 0.4 mg UNSCH PRN IV 03/01/17 14:30 (Ramona-Colace) 1 tab BID PO 03/01/17 21:00 (Milk Of Magnesia Liq) 30 ml Q12H PRN PO 03/01/17 14:30 (Senokot) 17.2 mg Q12H PRN PO 03/01/17 14:30 (Dulcolax Supp) 10 mg DAILY PRN RECTAL 03/01/17 14:30 Lactulose 30 ml 30 ml DAILY PRN PO 03/01/17 14:30 (Rocephin Inj/NS Inj) 100 ml @ 200 mls/hr Q24H IV 03/01/17 15:00 03/05/17 14:54 Levothyroxine Sodium 25 mcg 25 mcg DAILY@06 IV PUSH 03/03/17 06:00 03/06/17 05:36 (D5W-/ NS 1000 ml Inj) 1,000 ml @ 125 mls/hr Q8H IV 03/02/17 19:45 03/05/17 21:26 (Vasotec Inj) 2.5 mg Q8H PRN IV PUSH 03/05/17 17:00 03/05/17 21:12 Metoprolol Tartrate 50 mg 50 mg BID PO 03/05/17 21:00 Potassium Chloride 100 ml @ 50 mls/hr Q2H IV 03/06/17 11:45 03/06/17 15:44 UNV (Magnesium Sulfate 1 Gm Premix) 100 ml @ 100 mls/hr Q1H IV 03/06/17 11:45 03/06/17 13:44 UNV Urinary Catheter: No Vascular Central Line Catheter: No A/P Problem List: (1) Encephalopathy ICD Code: G93.40 Status: Acute (2) Altered mental status ICD Code: R41.82 Status: Acute (3) Dilantin toxicity ICD Code: T42.0X1A Status: Acute (4) UTI (urinary tract infection) ICD Code: N39.0 Status: Acute (5) Acute kidney injury ICD Code: N17.9 Status: Acute Assessment and Plan 6-year-old male admitted with encephalopathy secondary to Dilantin toxicity and a UTI. Toxic/Metabolic Encephalopathy Dilantin Toxicity Head CT negative Possibly secondary to UTI. Supportive care Dilantin level slowly trending down Monitor Dilantin level Follow on telemetry Nothing by mouth for now fu speech therapy recommendations - Keep npo Continue neurochecks Urinary tract infection Cultures are growing E Coli. Continue IV Rocephin, Fu sensitivities Acute kidney injury Resolved after IV fluid administration. Follow renal function Hyperkalemia This was secondary to dehydration Resolved with IV hydration Follow potassium levels Atrial Fibrillation Follow on telemetry Pradaxa held by Dr Middleton due to NPO and patient placed on heparin SQ. 03/[address] patient on Lovenox SQ therapeutic dose - Hemoglobin had been trending down before heparin SQ was held. Hemoglobin now stable, will start patient on Lovenox SQ. Will resume Pradaxa once patient able to take oral medications. Hypoglycemia Blood sugars are stable Follow-up Accu-Cheks 03/04 ContinueD5 09/28 NS at 150 cc per hour - patient still NPO Hypothyroidism IV levothyroxine started Transitioned to by mouth treatment once patient's encephalopathy improves Seizure Disorder No seizure activity Monitor for seizure activity Dilantin is being held as above 03/04 check EEG - negative only showed slowing. Appreciate neurology recommendations. The case was discussed with Dr. Rasmussen who recommended following Dilantin levels once it drops down to 20 resuming Dilantin level at a lower dose. I will continue to follow his recommendations. Hypophosphatemia Likely secondary to nutritional deficiency due to poor oral intake. Phosphorus was replaced IV and levels are not normal. Continue to monitor levels. DVT Prophylaxis Lovenox SQ Discharge Planning Continue to monitor in the medical floor. Dilantin level elevated. Patient still NPO Problem Qualifiers (1) Altered mental status: Qualified Code: R41.82 - Altered mental status, unspecified altered mental status type (2) Dilantin toxicity: Qualified Code: T42.0X4A - Dilantin toxicity, undetermined intent, initial encounter (3) UTI (urinary tract infection): Qualified Code: N39.0 - Urinary tract infection without hematuria, site unspecified Mike Brown MD Mar 05, 2017 17:02
[2017-03-05] MEDS: METOPROLOL TARTRATE 50 MG TAB PO SCH (21:00)
[2017-03-05] MEDS: ENALAPRILAT 2.5 MG/2 ML VIAL IV PUSH PRN (21:12)
[2017-03-06] VITALS (7 sets, daily range): BP systolic 138–158; BP diastolic 63–73; PULSE 73–83; RESP 16–19; TEMP 95.6–97.4; O2SAT 97–100
[2017-03-06] MEDS: LEVOTHYROXINE SODIUM 100 MCG VIAL IV PUSH SCH (05:36)
[2017-03-06 08:49] LABS: AUTOMATED NEUTROPHIL # 4.8 TH/MM3 (1.8-7.7); BASOPHIL % 0.7 % (0.0-2.0); EOSINOPHIL # 0.2 TH/MM3 (0-0.4); EOSINOPHIL % 2.7 % (0.0-4.0); HEMATOCRIT 29.3 % (39.0-51.0); HEMO FLAGS DIFF FINAL; LYMPH % 16.8 % (9.0-44.0); LYMPHOCYTE # 1.2 TH/MM3 (1.0-4.8); MEAN CORPUSCULAR HEMOGLOBIN 29.9 PG (27.0-34.0); MEAN CORPUSCULAR HGB CONC 32.5 % (32.0-36.0); MONO % 11.5 % (0.0-8.0); NEUT % 68.3 % (16.0-70.0); PLATELET COUNT 206 TH/MM3 (150-450); RED BLOOD COUNT 3.19 MIL/MM3 (4.50-5.90); RED CELL DISTRIBUTION WIDTH 14.6 % (11.6-17.2)
[2017-03-06] MEDS: METOPROLOL TARTRATE 50 MG TAB PO SCH ×2 (09:00→21:27)
[2017-03-06] MEDS: SODIUM CHLORIDE 0.9% FLUSH 10 ML FLUSH IV FLUSH SCH ×2 (09:00→21:27)
[2017-03-06] MEDS: DOCUSATE SODIUM 50 MG/SENNA 8.6 MG TAB PO SCH ×2 (09:00→21:27)
[2017-03-06 09:07] LABS: ANION GAP 9 MEQ/L (5-15); AST (GOT) 37 U/L (15-37); BICARBONATE 28.1 MEQ/L (21.0-32.0); BLOOD UREA NITROGEN 3 MG/DL (7-18); CHLORIDE 105 MEQ/L (98-107); GLOMERULAR FILTRATION RATE 134 ML/MIN (>89); MAGNESIUM 1.6 MG/DL (1.5-2.5); POTASSIUM 3.1 MEQ/L (3.5-5.1); SODIUM (NA) 142 MEQ/L (136-145)
[2017-03-06 09:08] LABS: ALT (GPT) 35 U/L (12-78)
[2017-03-06 09:12] LABS: ALKALINE PHOSPHATASE 189 U/L (45-117); TOTAL BILIRUBIN ADULT 0.2 MG/DL (0.2-1.0)
[2017-03-06] MEDS: DEXT 5%-NACL 0.45% 1000 ML INJ 1,000 ML IV SCH ×2 (11:45→20:02)
--- NOTE | 2017-03-06 11:49 | HHI.PR ---
Subjective Remarks Patient alert but sleepy - tries to verbalize but sounds cannot be understood. as per RN patient passed dyspahgia eval but has poor oral intake Phenytoin elevated still Stable vital signs bp better Objective Vitals Vital Signs Date Time Temp Pulse Resp B/P Pulse Ox O2 Delivery O2 Flow Rate FiO2 03/06/17 08:00 96.6 82 16 138/69 98 03/06/17 04:50 97.4 83 19 158/68 100 03/06/17 00:20 96.3 82 19 141/67 100 03/05/17 21:10 82 03/05/17 21:10 97 Nasal Cannula 2.00 03/05/17 20:45 96.0 84 18 186/79 97 03/05/17 16:00 96.3 85 16 186/89 98 03/05/17 12:00 95.3 86 20 159/74 96 I/O 03/05/17 03/05/17 03/05/17 03/06/17 03/06/17 03/06/17 07:00 15:00 23:00 07:00 15:00 23:00 Intake Total 2185 ml 772 ml 1052 ml Output Total 700 ml 2100 ml 800 ml 500 ml Balance -700 ml 85 ml -28 ml 552 ml Intake Oral 0 ml 0 ml 0 ml IV Total 2185 ml 772 ml 1052 ml Output Urine Total 700 ml 2100 ml 800 ml 500 ml # Bowel Movements 0 0 0 Result Diagram: 03/06/1717 03/06/17 0717 Imaging Last Impressions Head CT 03/01/17 1104 Signed Impressions: Service Date/Time: Wednesday, March 01, 2017 11:58 - CONCLUSION: No acute disease. Иван Flor MD FACR Chest X-Ray 03/01/17 1104 Signed Impressions: Service Date/Time: Wednesday, March 01, 2017 11:10 - CONCLUSION: No acute disease. Иван Flor MD FACR Objective Remarks GENERAL: NAD, A&Ox1 SKIN: Warm and dry. HEAD: Normocephalic. EYES: No scleral icterus. No injection or drainage. NECK: Supple, trachea midline. No JVD or lymphadenopathy. CARDIOVASCULAR: Regular rate and rhythm without murmurs, gallops, or rubs. RESPIRATORY: Breath sounds equal bilaterally. No accessory muscle use. GASTROINTESTINAL: Abdomen soft, non-tender, nondistended. MUSCULOSKELETAL: No cyanosis, or edema. NEURO: Awake and alert. Follows simple commands. Speech is slow. Procedures none Medications and IVs Current Medications Medications (Trade) Dose Ordered Sig/Miquel Route Start Time Stop Time Status Last Admin (D50w (Vial) Inj) 50 ml UNSCH PRN IV 03/01/17 11:45 03/01/17 11:48 (NS Flush) 2 ml UNSCH PRN IV FLUSH 03/01/17 14:30 (NS Flush) 2 ml BID IV FLUSH 03/01/17 21:00 03/05/17 21:13 (Narcan Inj) 0.4 mg UNSCH PRN IV 03/01/17 14:30 (Ramona-Colace) 1 tab BID PO 03/01/17 21:00 (Milk Of Magnesia Liq) 30 ml Q12H PRN PO 03/01/17 14:30 (Senokot) 17.2 mg Q12H PRN PO 03/01/17 14:30 (Dulcolax Supp) 10 mg DAILY PRN RECTAL 03/01/17 14:30 Lactulose 30 ml 30 ml DAILY PRN PO 03/01/17 14:30 (Rocephin Inj/NS Inj) 100 ml @ 200 mls/hr Q24H IV 03/01/17 15:00 03/06/17 15:48 Levothyroxine Sodium 25 mcg 25 mcg DAILY@06 IV PUSH 03/03/17 06:00 03/06/17 05:36 (D5W-1/2 NS 1000 ml Inj) 1,000 ml @ 125 mls/hr Q8H IV 03/02/17 19:45 03/05/17 21:26 (Vasotec Inj) 2.5 mg Q8H PRN IV PUSH 03/05/17 17:00 03/05/17 21:12 Metoprolol Tartrate 50 mg 50 mg BID PO 03/05/17 21:00 (KCl 20 Meq Premix Inj) 100 ml @ 50 mls/hr Q2H IV 03/06/17 12:15 03/06/17 16:14 03/06/17 15:47 Urinary Catheter: No Vascular Central Line Catheter: No A/P Problem List: (1) Encephalopathy ICD Code: G93.40 Status: Acute (2) Altered mental status ICD Code: R41.82 Status: Acute (3) Dilantin toxicity ICD Code: T42.0X1A Status: Acute (4) UTI (urinary tract infection) ICD Code: N39.0 Status: Acute (5) Acute kidney injury ICD Code: N17.9 Status: Acute Assessment and Plan 6-year-old male admitted with encephalopathy secondary to Dilantin toxicity and a UTI. Toxic/Metabolic Encephalopathy Dilantin Toxicity Head CT negative Possibly secondary to Dilanting toxicity and UTI. Supportive care Dilantin level slowly trending down Monitor Dilantin level Follow on telemetry Nothing by mouth for now fu speech therapy recommendations - recommended puree diet with thin liquids. Continue neurochecks Urinary tract infection Cultures are growing E Coli. Escherichia coli sensitive to IV Rocephin. Continue treatment. Acute kidney injury Resolved after IV fluid administration. Follow renal function Hyperkalemia This was secondary to dehydration Resolved with IV hydration Follow potassium levels Atrial Fibrillation Follow on telemetry Pradaxa held by Dr Middleton due to NPO and patient placed on heparin SQ. 03/[address] patient on Lovenox SQ therapeutic dose - Hemoglobin had been trending down before heparin SQ was held. 03/06 Will resume Pradaxa since patient is able to take PO. Hypoglycemia Blood sugars are stable Follow-up Accu-Cheks 03/06 ContinueD5 / NS at 150 cc per hour - patient still has poor oral intake. Hypothyroidism IV levothyroxine started I will start patient on oral levothyroxine. Seizure Disorder No seizure activity Monitor for seizure activity Dilantin is being held as above 03/04 check EEG - negative only showed slowing. Appreciate neurology recommendations. The case was discussed with Dr. Rasmussen who recommended following Dilantin levels once it drops down to 20 resuming Dilantin level at a lower dose. I will continue to follow his recommendations. Hypophosphatemia Likely secondary to nutritional deficiency due to poor oral intake. Phosphorus was replaced IV and levels are not normal. Continue to monitor levels. DVT Prophylaxis Lovenox SQ Discharge Planning Continue to monitor in the medical floor. Dilantin level elevated. Problem Qualifiers (1) Altered mental status: Qualified Code: R41.82 - Altered mental status, unspecified altered mental status type (2) Dilantin toxicity: Qualified Code: T42.0X4A - Dilantin toxicity, undetermined intent, initial encounter (3) UTI (urinary tract infection): Qualified Code: N39.0 - Urinary tract infection without hematuria, site unspecified Mike Brown MD Mar 06, 2017 11:49
[2017-03-06] MEDS: MAGNESIUM SULFATE 1 GM PREMIX 100 ML IV SCH ×2 (12:46→15:47)
[2017-03-06] MEDS: POTASSIUM CHLOR 20 MEQ PREMIX 100 ML IV SCH ×2 (12:47→15:47)
[2017-03-06] MEDS: cefTRIAXone INJ 1,000 MG in SODIUM CHLORIDE 0.9% INJ 100 ML IV SCH (15:48)
[2017-03-06] MEDS: DABIGATRAN ETEXILATE 150 MG CAP PO SCH (21:26)
[2017-03-07] VITALS (7 sets, daily range): BP systolic 137–180; BP diastolic 64–82; PULSE 75–85; RESP 17–19; TEMP 95.3–97.4; O2SAT 95–100
[2017-03-07] MEDS: DEXT 5%-NACL 0.45% 1000 ML INJ 1,000 ML IV SCH ×3 (03:12→19:55)
[2017-03-07] MEDS: LEVOTHYROXINE SODIUM 50 MCG TAB PO SCH (05:59)
[2017-03-07] MEDS: DOCUSATE SODIUM 50 MG/SENNA 8.6 MG TAB PO SCH ×2 (08:04→19:55)
[2017-03-07] MEDS: METOPROLOL TARTRATE 50 MG TAB PO SCH ×2 (08:04→19:55)
[2017-03-07] MEDS: DABIGATRAN ETEXILATE 150 MG CAP PO SCH ×2 (08:04→19:55)
[2017-03-07] MEDS: SODIUM CHLORIDE 0.9% FLUSH 10 ML FLUSH IV FLUSH SCH ×2 (09:00→19:55)
[2017-03-07] MEDS: cefTRIAXone INJ 1,000 MG in SODIUM CHLORIDE 0.9% INJ 100 ML IV SCH (15:00)
[2017-03-07] MEDS: ENALAPRILAT 2.5 MG/2 ML VIAL IV PUSH PRN (15:21)
[2017-03-07 17:20] LABS: BICARBONATE 31.4 MEQ/L (21.0-32.0); POTASSIUM 3.3 MEQ/L (3.5-5.1)
--- NOTE | 2017-03-07 18:37 | HHI.PR ---
Subjective Remarks The patient is more awake and alert Denies chest pain or shots of breath BP elevated. Objective Vitals Vital Signs Date Time Temp Pulse Resp B/P Pulse Ox O2 Delivery O2 Flow Rate FiO2 03/07/17 16:00 96.3 78 18 180/82 100 03/07/17 12:07 95.3 78 18 159/76 98 03/07/17 08:00 97.4 85 17 149/72 96 03/07/17 07:10 85 03/07/17 04:50 95.7 80 19 177/77 98 03/07/17 00:50 96.0 75 18 137/64 95 03/06/17 20:50 96.6 83 18 149/73 97 I/O 03/06/17 03/06/17 03/06/17 03/07/17 03/07/17 03/07/17 07:00 15:00 23:00 07:00 15:00 23:00 Intake Total 1052 ml 50 ml 240 ml 960 ml Output Total 500 ml 1450 ml 6000 ml 1350 ml 950 ml Balance 552 ml -1450 ml -5950 ml -1110 ml 10 ml Intake Oral 0 ml 50 ml 240 ml 960 ml IV Total 1052 ml Output Urine Total 500 ml 1450 ml 6000 ml 1350 ml 950 ml Stool Total 0 ml # Bowel Movements 0 0 0 0 Result Diagram: 03/06/17 0717 03/07/17 1627 Imaging Last Impressions Head CT 03/01/17 1104 Signed Impressions: Service Date/Time: Wednesday, March 01, 2017 11:58 - CONCLUSION: No acute disease. Иван Flor MD FACR Chest X-Ray 03/01/17 1104 Signed Impressions: Service Date/Time: Wednesday, March 01, 2017 11:10 - CONCLUSION: No acute disease. Иван Flor MD FACR Objective Remarks GENERAL: NAD, A&Ox1 SKIN: Warm and dry. HEAD: Normocephalic. EYES: No scleral icterus. No injection or drainage. NECK: Supple, trachea midline. No JVD or lymphadenopathy. CARDIOVASCULAR: Regular rate and rhythm without murmurs, gallops, or rubs. RESPIRATORY: Breath sounds equal bilaterally. No accessory muscle use. GASTROINTESTINAL: Abdomen soft, non-tender, nondistended. MUSCULOSKELETAL: No cyanosis, or edema. NEURO: Awake and alert. Follows simple commands. Speech is slow. Procedures none Medications and IVs Current Medications Medications (Trade) Dose Ordered Sig/Miquel Route Start Time Stop Time Status Last Admin (D50w (Vial) Inj) 50 ml UNSCH PRN IV 03/01/17 11:45 03/01/17 11:48 (NS Flush) 2 ml UNSCH PRN IV FLUSH 03/01/17 14:30 (NS Flush) 2 ml BID IV FLUSH 03/01/17 21:00 03/07/17 09:00 (Narcan Inj) 0.4 mg UNSCH PRN IV 03/01/17 14:30 (Ramona-Colace) 1 tab BID PO 03/01/17 21:00 03/07/17 08:04 (Milk Of Magnesia Liq) 30 ml Q12H PRN PO 03/01/17 14:30 (Senokot) 17.2 mg Q12H PRN PO 03/01/17 14:30 (Dulcolax Supp) 10 mg DAILY PRN RECTAL 03/01/17 14:30 Lactulose 30 ml 30 ml DAILY PRN PO 03/01/17 14:30 Ceftriaxone Sodium 1000 mg/ Sodium Chloride 100 ml @ 200 mls/hr Q24H IV 03/01/17 15:00 03/07/17 15:00 (D5W-1/2 NS 1000 ml Inj) 1,000 ml @ 125 mls/hr Q8H IV 03/02/17 19:45 03/07/17 11:45 (Vasotec Inj) 2.5 mg Q8H PRN IV PUSH 03/05/17 17:00 03/07/17 15:21 (Lopressor) 50 mg BID PO 03/05/17 21:00 03/07/17 08:04 (Pradaxa) 150 mg BID PO 03/06/17 21:00 03/07/17 08:04 (Synthroid) 50 mcg DAILY@0600 PO 03/07/17 06:00 Urinary Catheter: No Vascular Central Line Catheter: No A/P Problem List: (1) Encephalopathy ICD Code: G93.40 Status: Acute (2) Altered mental status ICD Code: R41.82 Status: Acute (3) Dilantin toxicity ICD Code: T42.0X1A Status: Acute (4) UTI (urinary tract infection) ICD Code: N39.0 Status: Acute (5) Acute kidney injury ICD Code: N17.9 Status: Acute Assessment and Plan 6-year-old male admitted with encephalopathy secondary to Dilantin toxicity and a UTI. Toxic/Metabolic Encephalopathy Dilantin Toxicity Head CT negative Possibly secondary to Dilanting toxicity and UTI. Supportive care Dilantin level slowly trending down Monitor Dilantin level Follow on telemetry Nothing by mouth for now fu speech therapy recommendations - recommended puree diet with thin liquids. Continue neurochecks 03/07 Neurological status slowly improving, patient more awake. Parul level down to 31. Continue to monitor. Urinary tract infection Cultures are growing E Coli. Escherichia coli sensitive to IV Rocephin. Continue treatment. Acute kidney injury Resolved after IV fluid administration. Follow renal function Hyperkalemia This was secondary to dehydration Resolved with IV hydration Follow potassium levels Atrial Fibrillation Follow on telemetry Pradaxa held by Dr Middleton due to NPO and patient placed on heparin SQ. 03/[address] patient on Lovenox SQ therapeutic dose - Hemoglobin had been trending down before heparin SQ was held. 03/06 Will resume Pradaxa since patient is able to take PO. Hypoglycemia Blood sugars are stable Follow-up Accu-Cheks 03/06 ContinueD5 09/28 NS at 150 cc per hour - patient still has poor oral intake. 03/07 discontinue IV fluids Hypothyroidism IV levothyroxine started I will start patient on oral levothyroxine. Seizure Disorder No seizure activity Monitor for seizure activity Dilantin is being held as above 03/04 check EEG - negative only showed slowing. Appreciate neurology recommendations. The case was discussed with Dr. Rasmussen who recommended following Dilantin levels once it drops down to 20 resuming Dilantin level at a lower dose. I will continue to follow his recommendations. Hypophosphatemia Likely secondary to nutritional deficiency due to poor oral intake. Phosphorus was replaced IV and levels are now normal. Continue to monitor levels. Uncontrolled hypertension Patient currently on metoprolol 50 mg by mouth twice a day. I will increase to 75 mg by mouth twice a day. DVT Prophylaxis Lovenox SQ Discharge Planning Continue to monitor in the medical floor. Dilantin level elevated. Problem Qualifiers (1) Altered mental status: Qualified Code: R41.82 - Altered mental status, unspecified altered mental status type (2) Dilantin toxicity: Qualified Code: T42.0X4A - Dilantin toxicity, undetermined intent, initial encounter (3) UTI (urinary tract infection): Qualified Code: N39.0 - Urinary tract infection without hematuria, site unspecified Mike Brown MD Mar 07, 2017 18:37
[2017-03-07] MEDS ORDERED: PILL SPLITTER OTHER PRN (19:15)
[2017-03-08] VITALS (7 sets, daily range): BP systolic 137–189; BP diastolic 69–84; PULSE 71–89; RESP 17–18; TEMP 95.4–96.9; O2SAT 9–99
[2017-03-08] MEDS: DEXT 5%-NACL 0.45% 1000 ML INJ 1,000 ML IV SCH ×3 (03:45→22:51)
[2017-03-08] MEDS: ENALAPRILAT 2.5 MG/2 ML VIAL IV PUSH PRN ×2 (05:20→17:39)
[2017-03-08] MEDS: LEVOTHYROXINE SODIUM 50 MCG TAB PO SCH (06:07)
[2017-03-08] MEDS: METOPROLOL TARTRATE 50 MG TAB PO SCH ×3 (08:49→22:50)
[2017-03-08] MEDS: SODIUM CHLORIDE 0.9% FLUSH 10 ML FLUSH IV FLUSH SCH ×2 (08:49→22:51)
[2017-03-08] MEDS: DABIGATRAN ETEXILATE 150 MG CAP PO SCH ×3 (08:49→22:50)
[2017-03-08] MEDS: DOCUSATE SODIUM 50 MG/SENNA 8.6 MG TAB PO SCH ×3 (08:49→22:50)
--- NOTE | 2017-03-08 14:04 | HHI.PR ---
Subjective Remarks Patient is nonverbal when seen. This appears to be his baseline. Phenytoin level has not reached therapeutic zone yet remains elevated. Objective Vital Signs Date Time Temp Pulse Resp B/P Pulse Ox O2 Delivery O2 Flow Rate FiO2 03/08/17 08:00 95.6 86 18 166/80 94 03/08/17 04:50 96.9 89 18 189/82 92 03/08/17 00:50 96.8 81 17 146/69 95 03/07/17 20:55 96.6 84 17 138/66 99 03/07/17 16:00 96.3 78 18 180/82 100 I/O 03/07/17 03/07/17 03/07/17 03/08/17 03/08/17 03/08/17 07:00 15:00 23:00 07:00 15:00 23:00 Intake Total 240 ml 960 ml 120 ml 120 ml Output Total 1350 ml 950 ml 750 ml 800 ml Balance -1110 ml 10 ml -630 ml -680 ml Intake Oral 240 ml 960 ml 120 ml 120 ml Output Urine Total 1350 ml 950 ml 750 ml 800 ml # Bowel Movements 0 0 0 0 Result Diagram: 03/06/17 0717 03/07/17 1627 Objective Remarks GENERAL: NAD, A&Ox0 SKIN: Warm and dry. HEAD: Normocephalic. EYES: No scleral icterus. No injection or drainage. NECK: Supple, trachea midline. No JVD or lymphadenopathy. CARDIOVASCULAR: Regular rate and rhythm without murmurs, gallops, or rubs. RESPIRATORY: Breath sounds equal bilaterally. No accessory muscle use. GASTROINTESTINAL: Abdomen soft, non-tender, nondistended. MUSCULOSKELETAL: No cyanosis, or edema. A/P Problem List: (1) Altered mental status ICD Code: R41.82 (2) Dilantin toxicity ICD Code: T42.0X1A (3) Acute kidney injury ICD Code: N17.9 (4) UTI (urinary tract infection) ICD Code: N39.0 (5) Encephalopathy ICD Code: G93.40 Assessment and Plan Assessment and plan 76-year-old male admitted with encephalopathy secondary to Dilantin toxicity and a UTI. Continue to follow Dilantin level. Holding Dilantin. Dilantin is not likely to be a good treatment for him. Toxic/Metabolic Encephalopathy Dilantin Toxicity Some of this may be secondary to UTI. Continue to follow urine cultures. Continue antibiotics. Supportive care Monitor Dilantin level Urinary tract infection IV Rocephin for one day more Follow urine cultures next Acute kidney injury Resolved Follow renal function Hyperkalemia This was secondary to dehydration Resolved with IV hydration Follow potassium levels Atrial Fibrillation Follow on telemetry Subcutaneous heparin Nothing by mouth status, metoprolol and Pradaxa are on hold Hypoglycemia Blood sugars are stabilized overnight Follow blood glucose Continue DT 0.5 and half normal saline at 150 cc per hour Hypothyroidism IV levothyroxine started Transitioned to by mouth treatment once patient's encephalopathy improves Seizure Disorder Monitor for seizure activity Dilantin is being held as above DVT Prophylaxis Subcutaneous heparin Once patient is able to take by mouth intake we'll change him back to his baseline treatment of Pradaxa Problem Qualifiers (1) Altered mental status: Qualified Code: R41.82 - Altered mental status, unspecified altered mental status type (2) Dilantin toxicity: Qualified Code: T42.0X4A - Dilantin toxicity, undetermined intent, initial encounter (3) UTI (urinary tract infection): Qualified Code: N39.0 - Urinary tract infection without hematuria, site unspecified Demarco Middleton MD Mar 08, 2017 14:04
[2017-03-08] MEDS: cefTRIAXone INJ 1,000 MG in SODIUM CHLORIDE 0.9% INJ 100 ML IV SCH (15:59)
[2017-03-09] VITALS (8 sets, daily range): BP systolic 131–174; BP diastolic 68–84; PULSE 74–88; RESP 18–19; TEMP 96.3–97.7; O2SAT 95–99
[2017-03-09] MEDS: LEVOTHYROXINE SODIUM 50 MCG TAB PO SCH (03:02)
[2017-03-09] MEDS: DOCUSATE SODIUM 50 MG/SENNA 8.6 MG TAB PO SCH ×3 (03:03→21:56)
[2017-03-09] MEDS: DABIGATRAN ETEXILATE 150 MG CAP PO SCH ×3 (03:04→21:56)
[2017-03-09] MEDS: METOPROLOL TARTRATE 50 MG TAB PO SCH ×3 (03:05→21:56)
[2017-03-09] MEDS: SODIUM CHLORIDE 0.9% FLUSH 10 ML FLUSH IV FLUSH SCH ×2 (09:00→21:57)
[2017-03-09] MEDS: DEXT 5%-NACL 0.45% 1000 ML INJ 1,000 ML IV SCH ×3 (09:18→21:56)
--- NOTE | 2017-03-09 10:01 | HHI.PR ---
Subjective Remarks Cognition improved today. Phenytoin level remains hypertherapeutic but has a downward trend. The treatment parameters will need to be established after phenytoin reaches therapeutic range. Objective Vital Signs Date Time Temp Pulse Resp B/P Pulse Ox O2 Delivery O2 Flow Rate FiO2 03/09/17 08:04 97.4 74 18 131/77 98 03/09/17 07:13 77 03/09/17 04:01 96.5 78 18 149/71 95 03/09/17 00:50 96.3 88 18 150/79 96 03/08/17 19:39 96.4 84 18 137/71 96 03/08/17 17:12 82 03/08/17 16:00 96.8 75 18 177/84 99 03/08/17 12:00 95.4 71 18 157/72 97 I/O 03/08/17 03/08/17 03/08/17 03/09/17 03/09/17 03/09/17 07:00 15:00 23:00 07:00 15:00 23:00 Intake Total 120 ml 960 ml 120 ml Output Total 800 ml 2750 ml 300 ml Balance -680 ml -1790 ml -180 ml Intake Oral 120 ml 960 ml 120 ml Output Urine Total 800 ml 2750 ml 300 ml # Bowel Movements 0 1 0 Result Diagram: 03/06/17 0717 03/07/17 1627 Objective Remarks GENERAL: NAD, A&Ox0 SKIN: Warm and dry. HEAD: Normocephalic. EYES: No scleral icterus. No injection or drainage. NECK: Supple, trachea midline. No JVD or lymphadenopathy. CARDIOVASCULAR: Regular rate and rhythm without murmurs, gallops, or rubs. RESPIRATORY: Breath sounds equal bilaterally. No accessory muscle use. GASTROINTESTINAL: Abdomen soft, non-tender, nondistended. MUSCULOSKELETAL: No cyanosis, or edema. A/P Problem List: (1) Altered mental status ICD Code: R41.82 (2) Dilantin toxicity ICD Code: T42.0X1A (3) Acute kidney injury ICD Code: N17.9 (4) UTI (urinary tract infection) ICD Code: N39.0 (5) Encephalopathy ICD Code: G93.40 Assessment and Plan Assessment and plan 76-year-old male admitted with encephalopathy secondary to Dilantin toxicity and a UTI. Continue to monitor phenytoin level. UTI treatment to be completed today. Toxic/Metabolic Encephalopathy Dilantin Toxicity Some of this may be secondary to UTI. Continue to follow urine cultures. Continue antibiotics. Supportive care Monitor Dilantin level Urinary tract infection IV Rocephin for one day more Follow urine cultures next Acute kidney injury Resolved Follow renal function Hyperkalemia This was secondary to dehydration Resolved with IV hydration Follow potassium levels Atrial Fibrillation Follow on telemetry Subcutaneous heparin Nothing by mouth status, metoprolol and Pradaxa are on hold Hypoglycemia Blood sugars are stabilized overnight Follow blood glucose Continue DT 0.5 and half normal saline at 150 cc per hour Hypothyroidism IV levothyroxine started Transitioned to by mouth treatment once patient's encephalopathy improves Seizure Disorder Monitor for seizure activity Dilantin is being held as above DVT Prophylaxis Subcutaneous heparin Once patient is able to take by mouth intake we'll change him back to his baseline treatment of Pradaxa Problem Qualifiers (1) Altered mental status: Qualified Code: R41.82 - Altered mental status, unspecified altered mental status type (2) Dilantin toxicity: Qualified Code: T42.0X4A - Dilantin toxicity, undetermined intent, initial encounter (3) UTI (urinary tract infection): Qualified Code: N39.0 - Urinary tract infection without hematuria, site unspecified Demarco Middleton MD Mar 09, 2017 10:01
[2017-03-09] MEDS: ENALAPRILAT 2.5 MG/2 ML VIAL IV PUSH PRN (11:50)
[2017-03-09] MEDS: cefTRIAXone INJ 1,000 MG in SODIUM CHLORIDE 0.9% INJ 100 ML IV SCH (14:46)
[2017-03-10] MEDS: ENALAPRILAT 2.5 MG/2 ML VIAL IV PUSH PRN (00:17)
[2017-03-10 02:32] VITALS: PULSE 69
[2017-03-10 03:20] VITALS: BP 151/65; PULSE 79; RESP 18; TEMP 96.7; O2SAT 95
[2017-03-10] MEDS: LEVOTHYROXINE SODIUM 50 MCG TAB PO SCH ×2 (05:21→05:24)
[2017-03-10] MEDS: DEXT 5%-NACL 0.45% 1000 ML INJ 1,000 ML IV SCH ×2 (05:21→11:45)
[2017-03-10 08:00] VITALS: BP 169/78; PULSE 77; RESP 18; TEMP 97.1; O2SAT 99
[2017-03-10 08:02] VITALS: PULSE 76
[2017-03-10] MEDS: SODIUM CHLORIDE 0.9% FLUSH 10 ML FLUSH IV FLUSH SCH (09:00)
[2017-03-10] MEDS ORDERED: POTASSIUM CHLORIDE 10 MEQ CONTROLLED RELEASE TAB PO ONE (09:00)
[2017-03-10] MEDS: DOCUSATE SODIUM 50 MG/SENNA 8.6 MG TAB PO SCH (09:43)
[2017-03-10] MEDS: DABIGATRAN ETEXILATE 150 MG CAP PO SCH (09:43)
[2017-03-10] MEDS: METOPROLOL TARTRATE 50 MG TAB PO SCH (09:43)
[2017-03-10 11:50] VITALS: BP 153/82; PULSE 82; RESP 18; TEMP 95.4; O2SAT 98
[2017-03-10] MEDS ORDERED: PHEN100C PO (12:03)
[2017-03-10] MEDS ORDERED: LEVO.05 PO (12:03)
[2017-03-10] MEDS ORDERED: LORA1TAB12 EXTERNAL (13:49)
--- NOTE | 2017-03-10 13:55 | HHI.DS ---
Discharge Summary Admission Date Mar 02, 2017 at 14:07 Discharge Date: Mar 10, 2017 Admitting Diagnosis Encephalopathy, Dilantin Toxicity, UTI, PEMA (1) Encephalopathy ICD Code: G93.40 Diagnosis: Principal (2) Altered mental status ICD Code: R41.82 Diagnosis: Principal (3) Dilantin toxicity ICD Code: T42.0X1A Diagnosis: Principal (4) UTI (urinary tract infection) ICD Code: N39.0 Diagnosis: Principal (5) Acute kidney injury ICD Code: N17.9 Diagnosis: Principal Procedures none Brief History - From Admission Written by Viridiana Valentino, acting as scribe for Dr. Middleton on 03/01/17 at 14:59. 76-year-old male with history of dementia, seizure disorder, A. fib on Pradaxa, diabetes, GERD, schizophrenia, dysphagia, presents to the ED from [facility] for evaluation of altered mental status. The patient is currently awake, but nonverbal, not oriented, not following commands, and unable to provide any reliable medical history therefore history obtained from [facility], EMR, and records provided from SNF. Reportedly the patient has not been acting appropriately, less responsive, refusing to take his medications. Unknown duration. He reportedly has advanced dementia and swallowing difficulties at baseline. Upon his arrival to the ER, Head CT unremarkable, diagnosed with PEMA with BUN 51/Cr 1.66, Dilantin toxicity with level 49, and UTI with +leuks/WBCs on UA. He was given IV Rocephin for UTI and started on IVF. The patient will be admitted to the observation unit. CBC/BMP: 03/06/17 0717 03/07/17 1627 Significant Findings Laboratory Tests Test 03/07/17 03/08/17 03/09/17 16:27 08:44 03:41 Potassium Level 3.3 MEQ/L (3.5-5.1) Blood Urea Nitrogen 5 MG/DL (7-18) Random Glucose 117 MG/DL (74-106) Phenytoin (Dilantin) Level 28.3 MCG/ML 22.3 MCG/ML (10.0-20.0) (10.0-20.0) PE at Discharge GENERAL: NAD, A&Ox1 SKIN: Warm and dry. HEAD: Normocephalic. EYES: No scleral icterus. No injection or drainage. NECK: Supple, trachea midline. No JVD or lymphadenopathy. CARDIOVASCULAR: Regular rate and rhythm without murmurs, gallops, or rubs. RESPIRATORY: Breath sounds equal bilaterally. No accessory muscle use. GASTROINTESTINAL: Abdomen soft, non-tender, nondistended. MUSCULOSKELETAL: No cyanosis, or edema. NEURO: Awake and alert. Follows simple commands. Speech is slow. Hospital Course Mr. Rivera is a 76-year-old man admitted with change in mental status. Etiology for change in mental status appears to be related to urinary tract infection and Dilantin toxicity. Hypothyroidism I have been contributory also. He had a urinary tract infection treated here for 7 days. His Dilantin toxicity took 8 days to correct. He is now in therapeutic range. His mental status has returned to prior baseline. Medically stable for discharge. He will be resumed on Dilantin at a lower level. Medically clear for discharge. Pt Condition on Discharge: Stable Discharge Disposition: Discharge to SNF Discharge Time: > 30 minutes Discharge Instructions DIET: Follow Instructions for: As Tolerated, No Restrictions Activities you can perform: Regular-No Restrictions Follow up Referrals: PCP Follow-up - 1 Week New Medications: Phenytoin Extended (Phenytoin Extended) 100 Mg Cap 100 MG PO EVERY OTHER DAY Control Seizures #15 Ref 0 CAP Levothyroxine (Synthroid) 50 Mcg Tab 50 MCG PO DAILY@0600 Hypothyroidism #30 TAB Continued Medications: Acetaminophen (Tylenol) 325 Mg Tab 650 MG PO Q4H PRN DISCOMFORT Ref 0 TAB Atorvastatin (Atorvastatin) 80 Mg Tab 80 MG PO HS Cholesterol Management #30 Ref 0 TAB Dabigatran (Pradaxa) 150 Mg Cap 150 MG PO BID Blood Clot Prevention #60 Ref [address] (D[address]ex DR) 250 Mg Tabdr 750 MG PO BID Control Seizures #60 Ref 0 TAB Escitalopram (Lexapro) 10 Mg Tab 10 MG PO DAILY #30 Ref 0 TAB Lactulose Liq (Lactulose Liq) 10 Gm/15 Ml Soln 45 ML PO TID PRN HIGH AMONIA LEVEL Ref 0 ML Lorazepam (Lorazepam) 1 Mg Tab 1 MG EXTERNAL Q6HR PRN ANXIETY #30 Ref 0 TAB (This prescription has been renewed ) Metoprolol Tartrate (Metoprolol Tartrate) 50 Mg Tab 50 MG PO BID #60 Ref 0 TAB Nitrofurantoin Macrocrystal (Macrodantin) 50 Mg Cap 50 MG PO DAILY Infection Ref 0 CAP Olanzapine (Zyprexa) 10 Mg Tab 10 MG PO HS #30 Ref 0 TAB Trimethoprim (Trimethoprim) 100 Mg Tab 100 MG PO HS Infection #60 Ref 0 TAB Discontinued Medications: Phenytoin Extended (Dilantin) 100 Mg Cap 400 MG PO BID Control Seizures #90 Ref 0 CAP Demarco Middleton MD Mar 10, 2017 13:55
[2017-03-10 16:00] VITALS: BP 145/60; PULSE 71; RESP 18; TEMP 95.5; O2SAT 99
== END 2017-03-10 17:51 | DRG 917 ==
LOC: NEPE 09:57 → INTOOBSV 14:24 → NEDA 14:24 → N06B 15:40 → N06A 16:18 → OBSVTOIN 03-02 14:07 → N06A 03-03 14:55
PROVIDERS: ADMIT Hospitalist; ATTEND Hospitalist
DX: T42.0X1A Poisoning by hydantoin derivatives, accidental (unintentional), initial encounter (principal); G93.41 Metabolic encephalopathy; N17.9 Acute kidney failure, unspecified; E11.22 Type 2 diabetes mellitus with diabetic chronic kidney disease; E11.649 Type 2 diabetes mellitus with hypoglycemia without coma; F03.90 Unspecified dementia, unspecified severity, without behavioral disturbance, psychotic disturbance, mood disturbance, and anxiety; E86.0 Dehydration; I48.2 Chronic atrial fibrillation; E83.39 Other disorders of phosphorus metabolism; R13.10 Dysphagia, unspecified; I12.9 Hypertensive chronic kidney disease with stage 1 through stage 4 chronic kidney disease, or unspecified chronic kidney disease; N39.0 Urinary tract infection, site not specified; F32.9 Major depressive disorder, single episode, unspecified; G40.909 Epilepsy, unspecified, not intractable, without status epilepticus; F41.9 Anxiety disorder, unspecified; K21.9 Gastro-esophageal reflux disease without esophagitis; N18.2 Chronic kidney disease, stage 2 (mild); E87.5 Hyperkalemia; E03.9 Hypothyroidism, unspecified; B96.20 Unspecified Escherichia coli [E. coli] as the cause of diseases classified elsewhere; Z79.01 Long term (current) use of anticoagulants; F25.9 Schizoaffective disorder, unspecified
CPT/HCPCS: 70450; 71010; 76937; 80048; 80053; 80185; 80186; 81001; 82140; 82550; 82728; 82948; 83540; 83550; 83605; 83735; 84100; 84436; 84439; 84443; 84481; 84484; 85025; 85027; 85610; 85730; 87040; 87077; 87086; 87186; 87641; 93005; 95819; 96361; 96374; G8996-GN; G8997-GN; G8998-GN; J0696; J1644; J3475; J3480; J7030

== ENCOUNTER 2017-04-17 12:02 | Inpatient (IN) | payer MEDICARE, MEDICAID ==
[~2017-04-17] VITALS: Ht 182.9 cm; Wt 73.9 kg
[2017-04-17] VITALS (16 sets, daily range): BP systolic 88–182; BP diastolic 48–94; PULSE 51–68; RESP 12–24; TEMP 88.6–94.9; O2SAT 93–100
[~2017-04-17 12:02] MED LIST changes: -A THTAB2 PO; -ACET325T PO; -DILA100C PO; -FERR325T PO; +LEVO.05 PO; +LORA1TAB12 EXTERNAL; +PHEN100C PO; +TRIME100 PO; +TYLE325T PO
[2017-04-17] MEDS ORDERED: SODIUM CHLORID 0.9% 500 ML INJ 500 ML IV ONE (12:15)
--- NOTE | 2017-04-17 12:22 | PD ---
HPI Chief Complaint: Altered Mental Status Time Seen by Provider: 12:04 Travel History International Travel<30 days: No Contact w/Intl Traveler<30days: No History of Present Illness HPI 76-year-old male presents emergency Department with acute on chronic ultrasound mental status. According to EMS the patient has a history of dementia and after discussing with the patient's son by telephone the patient normally feeds himself. Is unclear how long the patient is been altered mental status 4. Patient's son tells me that the patient on his last admission did have Dilantin toxicity. The patient on arrival is cold, GCS [id number]. He is unable to provide any further history. Attempts by me to reach long-term have been unsuccessful in no further history is available at this time. PFSH Past Medical History Hx Anticoagulant Therapy: Yes (PRADAXA ) Anxiety: Yes Depression: Yes Cardiovascular Problems: Yes High Cholesterol: Yes Dementia: Yes Diminished Hearing: No Hypertension: Yes Musculoskeletal: Yes Neurologic: Yes Psychiatric: Yes Immunizations Current: Yes Schizophrenia: Yes Seizures: Yes Past Surgical History Other Surgery: Yes (UNABLE TO OTAIN) Social History Alcohol Use: No Tobacco Use: No Substance Use: No Allergies-Medications (Allergen,Severity, Reaction): Coded Allergies: *MDRO Multi-Drug Resistant Organism (Verified Adverse Reaction, Unknown, ) 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 - 06/13/16 Reported Meds & Prescriptions Reported Meds & Active Scripts Active Lorazepam 1 Mg Tab 1 Mg EXTERNAL Q6HR PRN Synthroid (Levothyroxine Sodium) 50 Mcg Tab 50 Mcg PO DAILY@0600 Reported Williams (Hydrocodone-Acetaminophen) 5-325 mg Tab 1 Tab PO Q12HR PRN Dilantin-125 Liq (Phenytoin) 125 Mg/5 Ml Susp 200 Mg PO Q12HR Trimethoprim 100 Mg Tab 100 Mg PO HS Tylenol (Acetaminophen) 325 Mg Tab 650 Mg PO Q4H PRN Macrodantin (Nitrofurantoin Macrocrystal) 50 Mg Cap 50 Mg PO DAILY Zyprexa (Olanzapine) 10 Mg Tab 10 Mg PO HS Lactulose Liq (Lactulose) 10 Gm/15 Ml Soln 45 Ml PO TID PRN Pradaxa (Dabigatran) 150 Mg Cap 150 Mg PO BID Metoprolol Tartrate 50 Mg Tab 50 Mg PO BID Lexapro (Escitalopram Oxalate) 10 Mg Tab 10 Mg PO DAILY Divalproex DR (Divalproex Sodium) 250 Mg Tabdr 750 Mg PO BID Atorvastatin (Atorvastatin Calcium) 80 Mg Tab 80 Mg PO HS Review of Systems ROS Limitations: Altered Mental Status Physical Exam Exam Limitations: Altered Mental Status Narrative GENERAL: Well-developed, well-nourished, lethargic. SKIN: Pale and cold HEAD: Atraumatic. Normocephalic. EYES: Pupils equal and round. No scleral icterus. No injection or drainage. ENT: No nasal bleeding or discharge. Mucous membranes pink and moist. NECK: Trachea midline. No JVD. CARDIOVASCULAR: Regular rate and rhythm. No murmur appreciated. RESPIRATORY: No accessory muscle use. Clear to auscultation. Breath sounds equal bilaterally. GASTROINTESTINAL: Abdomen soft, non-tender, nondistended. Hepatic and splenic margins not palpable. MUSCULOSKELETAL: No obvious deformities. No clubbing. No cyanosis. No edema. NEUROLOGICAL: GCS of 8. Nonpurposeful movements of all 4 extremities. Data Data Last Documented VS Vital Signs Date Time Temp Pulse Resp B/P Pulse Ox O2 Delivery O2 Flow Rate FiO2 04/17/17 15:06 91.8 68 24 91/48 100 04/17/17 15:06 100 04/17/17 14:00 Nasal Cannula 2 Orders Electrocardiogram (04/17/17 12:12) Ammonia (04/17/17 12:12) Complete Blood Count With Diff (04/17/17 12:12) Comprehensive Metabolic Panel (04/17/17 12:12) Creatine Kinase (Cpk) (04/17/17 12:12) Prothrombin Time / Inr (Pt) (04/17/17 12:12) Act Partial Throm Time (Ptt) (04/17/17 12:12) Troponin I (04/17/17 12:12) Thyroid Stimulating Hormone (04/17/17 12:12) Urinalysis - C+S If Indicated (04/17/17 12:12) Blood Culture (04/17/17 12:12) Chest, Single Ap (04/17/17 12:12) Ct Brain W/O Iv Contrast(Rout) (04/17/17 12:12) Ecg Monitoring (04/17/17 12:12) Iv Access Insert/Monitor (04/17/17 12:12) Oximetry (04/17/17 12:12) Sodium Chloride 0.9% Flush (Ns Flush) (04/17/17 12:15) Sodium Chlorid 0.9% 500 Ml Inj (Ns 500 M (04/17/17 12:15) Lactic Acid (04/17/17 12:14) Insert Temp Sensing Naik Cath (04/17/17 12:29) Vancomycin Inj (Vancomycin Inj) (04/17/17 12:30) Piperacil-Tazo 3.375 Gm Premix (Zosyn 3. (04/17/17 12:30) Sodium Chlor 0.9% 1000 Ml Inj (Ns 1000 M (04/17/17 12:45) Urine Culture (04/17/17 12:25) Urinary Catheter Management TAMIKA.Q8H (04/17/17 13:18) Valproic Acid (Depakene) (04/17/17 13:57) Cortisol (04/17/17 14:06) Arterial Blood Gas (Abg) (04/17/17 ) Etomidate Inj (Amidate Inj) (04/17/17 14:58) Rocuronium Inj (Zemuron Inj) (04/17/17 14:58) Rocuronium Inj (Zemuron Inj) (04/17/17 15:01) Propofol 1000 Mg/100 Ml Inj (Diprivan 10 (04/17/17 15:09) Dexamethasone Inj (Decadron Inj) (04/17/17 15:15) Chest, Single Ap (04/17/17 ) Admit To Inpatient (04/17/17 ) Code Status (04/17/17 15:16) Vital Signs (Adult) TAMIKA.Q1H (04/17/17 15:16) Activity Bed Rest (04/17/17 15:16) Elevate Head Of Bed (04/17/17 15:16) Neuro Checks . ORDERED (04/17/17 15:16) Pantoprazole Inj (Protonix Inj) (04/17/17 15:30) Albuterol-Ipratropium Neb (Duoneb Neb) (04/17/17 16:00) Complete Blood Count With Diff (04/18/17 04:00) Comprehensive Metabolic Panel (04/18/17 04:00) Magnesium (Mg) (04/18/17 04:00) Phosphorus (Po4) (04/18/17 04:00) Sputum Culture And Gram Stain (04/17/17 15:16) Chest, Single Ap (04/18/17 ) Med Dir / Telemetry TAMIKA.Q8H (04/17/17 15:16) Heparin Inj (Heparin Inj) (04/17/17 15:30) Scd Bilateral/Knee High TAMIKA.BID (04/17/17 15:16) ^ Initiate Protocol (04/17/17 15:16) Instruction (04/17/17 15:16) [facility] Nursing Information (04/17/17 15:30) Chlorhexidine 2% Cloth (Chlorhexidine 2% (04/18/17 04:00) Chlorhexidine 2% Cloth (Chlorhexidine 2% (04/17/17 15:30) Mrsa Pcr Surveillance (04/17/17 15:16) Docusate Sodium-Senna (Ramona-Colace) (04/17/17 21:00) Magnesium Hydroxide Liq (Milk Of Magnesi (04/17/17 15:30) Sennosides (Senokot) (04/17/17 15:30) Bisacodyl Supp (Dulcolax Supp) (04/17/17 15:30) Lactulose Liq (Lactulose Liq) (04/17/17 15:30) Inpatient Certification (04/17/17 ) Midazolam 100 Mg/Ml Inj (Versed 100 Mg/M (04/17/17 15:19) Free T3 (04/17/17 15:19) Free Thyroxine (T4) (04/17/17 15:19) Levothyroxine (Synthroid) (04/17/17 15:30) Admit Order (Ed Use Only) (04/17/17 ) Blood Glucose Goal (Criteria) (04/17/17 15:22) Hypoglycemia 70 Mg/Dl Or < (04/17/17 15:22) Notify Dr: Other (04/17/17 15:22) Dextrose 50% In Elizabeth (Vial) Inj (D50w (Vi (04/17/17 15:30) Glucagon Inj (Glucagon Inj) (04/17/17 15:30) Insulin Human Reg Supp Scale (Novolin R (04/17/17 15:30) Dext 5%-Nacl 0.9% 1000 Ml Inj (D5w-Ns 10 (04/17/17 15:30) Sodium Chlor 0.9% 1000 Ml Inj (Ns 1000 M (04/17/17 15:30) Us Abdomen Complete (04/17/17 ) Labs Laboratory Tests Test 04/17/17 04/17/17 04/17/17 04/17/17 12:15 12:20 12:25 14:10 White Blood Count 6.0 TH/MM3 Red Blood Count 2.99 MIL/MM3 Hemoglobin 9.5 GM/DL Hematocrit 29.0 % Mean Corpuscular Volume 97.0 FL Mean Corpuscular Hemoglobin 31.7 PG Mean Corpuscular Hemoglobin 32.7 % Concent Red Cell Distribution Width 17.1 % Platelet Count 154 TH/MM3 Mean Platelet Volume 8.8 FL Neutrophils (%) (Auto) 57.8 % Lymphocytes (%) (Auto) 34.2 % Monocytes (%) (Auto) 6.2 % Eosinophils (%) (Auto) 1.6 % Basophils (%) (Auto) 0.2 % Neutrophils # (Auto) 3.4 TH/MM3 Lymphocytes # (Auto) 2.0 TH/MM3 Monocytes # (Auto) 0.4 TH/MM3 Eosinophils # (Auto) 0.1 TH/MM3 Basophils # (Auto) 0.0 TH/MM3 CBC Comment DIFF FINAL Differential Comment Prothrombin Time 13.2 SEC Prothromb Time International 1.2 RATIO Ratio Activated Partial 43.6 SEC Thromboplast Time Sodium Level 145 MEQ/L Potassium Level 6.0 MEQ/L Chloride Level 113 MEQ/L Carbon Dioxide Level 26.8 MEQ/L Anion Gap 5 MEQ/L Blood Urea Nitrogen 51 MG/DL Creatinine 1.37 MG/DL Estimat Glomerular Filtration 61 ML/MIN Rate Random Glucose 78 MG/DL Calcium Level 8.9 MG/DL Total Bilirubin LESS THAN 0.1 MG/DL Aspartate Amino Transf 177 U/L (AST/SGOT) Alanine Aminotransferase 168 U/L (ALT/SGPT) Alkaline Phosphatase 221 U/L Ammonia 17 MCMOL/L Total Creatine Kinase 57 U/L Troponin I LESS THAN 0.02 NG/ML Total Protein 7.9 GM/DL Albumin 2.9 GM/DL Thyroid Stimulating Hormone 11.000 uIU/ML 3rd Gen Valproic Acid (Depakene) Level 26 MCG/ML Lactic Acid Level 0.8 mmol/L Urine Color YELLOW Urine Turbidity CLEAR Urine pH 5.5 Urine Specific Terrell 1.029 Urine Protein TRACE mg/dL Urine Glucose (UA) NEG mg/dL Urine Ketones TRACE mg/dL Urine Occult Blood NEG Urine Nitrite NEG Urine Bilirubin NEG Urine Urobilinogen LESS THAN 2.0 MG/DL Urine Leukocyte Esterase NEG Urine RBC 1 /hpf Urine WBC 2 /hpf Urine Transitional Epithelial <1 /hpf Cells Urine Bacteria RARE /hpf Urine Hyaline Casts 5 /lpf Microscopic Urinalysis Comment CATH-CULTURE IND Random Cortisol 9.7 MCG/DL MDM Medical Decision Making Medical Screen Exam Complete: Yes Emergency Medical Condition: Yes Differential Diagnosis Sepsis, hypothermia, electro-light abnormality, dehydration, hyperkalemia, liver disease, kidney disease, intracranial injury, Dilantin toxicity, myxedema coma, adrenal insufficiency. Narrative Course Patient was roomed in the emergency department, sepsis workup was initiated and the patient was given vancomycin and Zosyn, a liter of warm normal saline and a bear hugger were applied. His lactic acid 0.8. Aggressive fluid resuscitation was therefore kept to a minimum to avoid pulmonary edema. The patient during course of ER had waxing waning mental status, after consultation with ICU agreement was reached to intubate the patient for airway protection. Patient had some mild hypotension after intubation which was transient. Core temperatures gradually rising. TSH is elevated patient was given Decadron. Blood cultures were sent, CT head was negative, chest x-ray did show some atelectasis of the right upper lobe which may be consistent with aspiration pneumonia. Patient was discussed with Dr. Biggs for ICU admission who is agreeable. Critical Care Narrative Aggregate critical care time was 35 minutes. Time to perform other separately billable procedures was not included in the critical care time. My time did not include minutes spent treating any other patients simultaneously or on activities that did not directly contribute to the patient's treatment. The services I provided to this patient were to treat and/or prevent clinically significant deterioration that could result in: , disability, organ failure I provided critical care services requiring my management, as noted below: Chart data review, documentation time, medication orders and management, vital sign assessments/reviewing monitor data, ordering and reviewing lab tests, ordering and interpreting/reviewing x-rays and diagnostic studies, care of the patient and discussion of the patient with the admitting physicians. Procedures Procedure Narrative After the risks and benefits were discussed the following procedure was performed: INTUBATION: The patient was put in optimal position for the procedure. Rapid sequence intubation was initiated by me using 20 milligrams of etomidate IV and 100 milligrams of rocuronium IV. The patient was intubated with a 8.0 cuffed endotracheal tube. Tube placement was confirmed by visualization of the tube and balloon passing through the cords, capnometry and subsequent chest x-ray. Breath sounds were equal and well aerated bilaterally postintubation. No breath sounds over stomach. Patient tolerated procedure well. Diagnosis Primary Impression: Sepsis Additional Impressions: Hypothermia Hyperkalemia Admitting Information Admitting Physician Requests: Admit Condition: Critical Rolando Dennis MD Apr 17, 2017 12:21
[2017-04-17] MEDS ORDERED: VANCOMYCIN INJ 1,000 MG in SODIUM CHLOR 0.9% 250 ML INJ 250 ML IV ONE (12:30)
[2017-04-17] MEDS ORDERED: PIPERACIL-TAZO 3.375 GM PREMIX 50 ML IV ONE (12:30)
[2017-04-17] MEDS ORDERED: SODIUM CHLOR 0.9% 1000 ML INJ 1,000 ML IV ONE ×4 (12:45→23:00)
[2017-04-17] MEDS: SODIUM CHLORIDE 0.9% FLUSH 5 ML FLUSH IV FLUSH PRN ×2 (12:46→15:06)
[2017-04-17 12:59] LABS: AUTOMATED NEUTROPHIL # 3.4 TH/MM3 (1.8-7.7); BASOPHIL % 0.2 % (0.0-2.0); EOSINOPHIL # 0.1 TH/MM3 (0-0.4); EOSINOPHIL % 1.6 % (0.0-4.0); HEMO FLAGS DIFF FINAL; LYMPH % 34.2 % (9.0-44.0); MEAN CORPUSCULAR HEMOGLOBIN 31.7 PG (27.0-34.0); MEAN CORPUSCULAR HGB CONC 32.7 % (32.0-36.0); MONO % 6.2 % (0.0-8.0); NEUT % 57.8 % (16.0-70.0); PLATELET COUNT 154 TH/MM3 (150-450); RED BLOOD COUNT 2.99 MIL/MM3 (4.50-5.90); RED CELL DISTRIBUTION WIDTH 17.1 % (11.6-17.2)
[2017-04-17 13:01] LABS: BACTERIA, URINE RARE /hpf; BLOOD, URINE NEG (NEG); COMMENT (UR) CATH-CULTURE IND; CULTURE IF INDICATED CATH CULTURE IND; GLUCOSE,URINE NEG (NEG); HYALINE CAST, URINE 5 /lpf (RARE); KETONE, URINE TRACE mg/dL (NEG); NITRITE,URINE NEG (NEG); PH, URINE 5.5 (5.0-8.5); TRANSITIONAL EPI CELLS, URINE <1 /hpf; URINE COLOR YELLOW (YELLW/STRAW)
--- NOTE | 2017-04-17 13:05 | RADRPT ---
EXAM DATE/TIME: 04/17/2017 12:18 [facility] COMPARISON: CHEST SINGLE AP, March 01, 2017, 11:10. INDICATIONS : Syncopal episode today MEDICAL HISTORY : Hypertension. seizures, dementia SURGICAL HISTORY : None. ENCOUNTER: Initial ACUITY: 1 day PAIN SCORE: Non-responsive. LOCATION: Bilateral chest FINDINGS: There is a wedge-shaped hazy opacity right upper lobe not present previously characteristic of partia l collapse. Mild left lung base atelectasis and/or infiltrate is seen. The rest of the examination ospina s not significantly changed. CONCLUSION: Interval development of partial collapse right upper lobe and slight left lung base atelectasis and/o r infiltrate. Omer Urena MD on April 17, 2017 at 13:02 Board Certified Radiologist. This report was verified electronically.
[2017-04-17] MEDS ORDERED: DILA125S PO (13:09)
[2017-04-17] MEDS ORDERED: NORC5TAB PO (13:09)
[2017-04-17 13:14] LABS: APTT (PATIENT) 43.6 SEC (24.3-30.1); INTERNATIONAL NORMALIZED RATIO 1.2 RATIO; PROTHROMBIN TIME - PATIENT 13.2 SEC (9.8-11.6)
[2017-04-17 13:50] LABS: ALT (GPT) 168 U/L (12-78)
[2017-04-17 14:02] LABS: ALKALINE PHOSPHATASE 221 U/L (45-117); ANION GAP 5 MEQ/L (5-15); BICARBONATE 26.8 MEQ/L (21.0-32.0); BLOOD UREA NITROGEN 51 MG/DL (7-18); CHLORIDE 113 MEQ/L (98-107); GLOMERULAR FILTRATION RATE 61 ML/MIN (>89); SODIUM (NA) 145 MEQ/L (136-145)
[2017-04-17 14:04] LABS: AST (GOT) 177 U/L (15-37); CREATINE KINASE 57 U/L (39-308); TOTAL BILIRUBIN ADULT LESS THAN 0.1 MG/DL (0.2-1.0)
--- NOTE | 2017-04-17 14:51 | RADRPT ---
EXAM DATE/TIME: 04/17/2017 14:38 [facility] COMPARISON: CT BRAIN W/O CONTRAST, March 01, 2017, 11:58. INDICATIONS : Altered mental status. RADIATION DOSE: 33.56 CTDIvol (mGy) MEDICAL HISTORY : Seizures. Hypertension. Cardiovascular disease SURGICAL HISTORY : None. ENCOUNTER: Initial ACUITY: 1 day PAIN SCALE: 0/10 LOCATION: cranial TECHNIQUE: Multiple contiguous axial images were obtained of the head. Using automated exposure control and adjustment of the mA and/or kV according to patient size, radiation dose was kept as low as reasonably achievable to obtain optimal diagnostic quality images. DICOM format image data is av ailable electronically for review and comparison. FINDINGS: There is no evidence for intracranial hemorrhage, mass effect, mass lesions, or edema. The visualize d bony structures appear intact. Slight degree of brain atrophy is seen. Slight periventricular whit e matter changes are seen nonspecific mostly consistent with chronic small vessel ischemic changes. There are no signs of acute infarction for technique. CONCLUSION: Slight atrophic and small vessel ischemic changes without any evidence for acute hemorrhage or mass effect. Omer Urena MD on April 17, 2017 at 14:48 Board Certified Radiologist. This report was verified electronically.
[2017-04-17] MEDS ORDERED: ROCURONIUM INJ 50 MG/5 ML VIAL ONE ×2 (14:58→15:01)
[2017-04-17] MEDS ORDERED: ETOMIDATE 20 MG/10 ML VIAL ONE (14:58)
[2017-04-17] MEDS ORDERED: PROPOFOL 1000 MG/100 ML INJ 100 ML ONE (15:09)
[2017-04-17] MEDS ORDERED: DEXAMETHASONE SOD PHOS 20 MG/5 ML VIAL IV PUSH ONE (15:15)
[2017-04-17] MEDS ORDERED: MIDAZOLAM 100 MG/ML INJ 100 ML ONE (15:19)
[2017-04-17] MEDS ORDERED: MAGNESIUM HYDROXIDE SUSP 30 ML CUP PO PRN (15:30)
[2017-04-17] MEDS ORDERED: PROPOFOL 1000 MG/100 ML INJ 100 ML IV SCH (15:30)
[2017-04-17] MEDS ORDERED: SENNOSIDES 8.6 MG TAB PO PRN (15:30)
[2017-04-17] MEDS ORDERED: BISACODYL 10 MG SUPP RECTAL PRN (15:30)
[2017-04-17] MEDS: LEVOTHYROXINE SODIUM 50 MCG TAB PO SCH (15:30)
[2017-04-17] MEDS ORDERED: CHLORHEXIDINE GLUCONATE 2 % 1 PACK (2 CLOTHS) TOP PRN (15:30)
[2017-04-17] MEDS ORDERED: GLUCAGON 1 MG/ML VIAL OTHER PRN (15:30)
[2017-04-17] MEDS ORDERED: LACTULOSE SYRUP 20 GM/30 ML CUP PO PRN (15:30)
[2017-04-17] MEDS ORDERED: Vancomycin Consult Pharmacy 1 EA OTHER SCH (15:30)
[2017-04-17] MEDS ORDERED: MISCELLANEOUS NURSING INFORMATION XX SCH (15:30)
[2017-04-17] MEDS ORDERED: DEXTROSE 50% IN WATER 50 ML VIAL(D50) IV PRN (15:30)
--- NOTE | 2017-04-17 15:39 | RADRPT ---
EXAM DATE/TIME: 04/17/2017 15:11 [facility] COMPARISON: CHEST SINGLE AP, April 17, 2017, 12:18. INDICATIONS : Endotracheal tube. MEDICAL HISTORY : Hypertension. seizures dementia SURGICAL HISTORY : None. ENCOUNTER: Subsequent ACUITY: 1 day PAIN SCORE: Non-responsive. LOCATION: Bilateral upper chest FINDINGS: A single view of the chest demonstrates right upper lobe density and left lower lobe density, unchang ed. Endotracheal tube with tip 2.5 cm above the clair. Nasogastric tube with tip in stomach. Osseou s structures are intact. CONCLUSION: 1. Right upper lobe and left lower lobe densities. No change. 2. Adequate placement of endotracheal tube. Dariusz Louis MD on April 17, 2017 at 15:37 Board Certified Radiologist. This report was verified electronically.
[2017-04-17 15:41] LABS: BLOOD GAS CARBOXYHEMOGLOBIN 1.2 % (0-4); BLOOD GAS HCO3 25 mmol/L (22-26); BLOOD GAS METHEMOGLOBIN 0.6 % (0-2); BLOOD GAS O2 HGB SATURATION 98 % (90-100); BLOOD GAS PCO2 38 mmHg (38-42); BLOOD GAS PO2 186 mmHG (61-120); BLOOD GAS TOTAL HGB 7.6 G/DL (12.0-16.0); TEMP CORR TO 98.6
[2017-04-17 15:42] LABS: CRITICAL VALUE NO; DRAW SITE RT FEMORAL; FIO2 50 %; NUMBER OF ARTERIAL PUNCTURES 1; OXYGEN DEVICE VENTILATOR; STAT YES; VENT SETTINGS 500/16/+5
[2017-04-17] MEDS: PANTOPRAZOLE SODIUM 40 MG VIAL IV SCH (15:42)
[2017-04-17] MEDS: HEPARIN SODIUM - SQ 10,000 UNITS/ML VIAL SQ SCH (15:42)
[2017-04-17] MEDS: INSULIN NovoLIN REGULAR SUPPLEMENTAL SCALE SQ SCH ×2 (16:00→20:00)
[2017-04-17] MEDS ORDERED: DEXTROSE 50% IN WATER 50 ML VIAL(D50) IV PUSH ONE (16:15)
[2017-04-17] MEDS ORDERED: INSULIN HUMAN REGULAR 1,000 UNITS/10 ML VIAL IV PUSH ONE (16:15)
[2017-04-17] MEDS ORDERED: SODIUM BICARBONATE 8.4% INJ 50 MEQ/50 ML SYR IV PUSH ONE (16:15)
[2017-04-17] MEDS ORDERED: SODIUM BICARBONATE 8.4% INJ 50 MEQ/50 ML SYR ONE (16:28)
--- NOTE | 2017-04-17 16:32 | MH ---
cc: PRIYA MICHEL M.D. DATE OF ADMISSION: 04/17/2017 ADMITTING DIAGNOSIS: HISTORY OF PRESENT ILLNESS: The patient is a 76-year-old retirement resident with a past medical history of hypothyroidism, hypertension, diabetes mellitus, dementia, seizure disorder, atrial fibrillation on Pradaxa who presented to the [facility] Emergency Department for confusion and altered mental status. The patient was also found hypothermic with a temperature of 88.9 rectally. His laboratory data showed acute kidney injury with creatinine level 1.37 and hyperkalemia with a potassium level 6.0. His lactic acid level measured at 0.8. In addition, he was found to have elevated liver enzymes with AST 177, ALT 168 and total bilirubin less than 0.1. Due to altered mental status, the patient was intubated with etomidate, vecuronium and placed on full mechanical ventilation. CT scan of the brain obtained in the emergency department showed slight atrophic and small vessel ischemic changes without any evidence for acute hemorrhage or mass effect. Chest x-ray post intubation showed right upper lobe and left lower lobe densities and adequate placement of the ET tube. In the emergency room, the patient was given approximately 1.5 liters of crystalloids in addition to vancomycin and Zosyn for possible aspiration pneumonia. Other significant labs showed a TSH of 11.0 and a random cortisol level of 9.7. He was also be given Decadron 10 mg IV push. ABG post-intubation showed a pH of 7.43, CO2 38, pAO2 186, bicarb 25, saturation 98% on assist control ventilation with a rate of 16, tidal volume 500, PEEP of 5 and FIO2 of 50%. When seen in the emergency room, he was sedated with Versed. PAST MEDICAL HISTORY: Past medical history significant for: 1. Dementia. 2. Hypertension. 3. Seizure disorder. 4. Atrial fibrillation. 5. Diabetes. 6. Gastroesophageal reflux disease (GERD). 7. Schizophrenia. 8. Chronic kidney disease. 9. Anemia. PAST SURGICAL HISTORY: Previous left hip surgery. ALLERGIES: NO KNOWN DRUG ALLERGIES. SOCIAL HISTORY: The patient was lives in a [facility]. No history of alcohol or tobacco use. MEDICATIONS: medications include: 1. Lactulose. 2. Pradaxa. 3. Depakote. 4. Lexapro. 5. Zyprexa. 6. Lopressor. 7. Atorvastatin. 8. Dilantin. 9. Synthroid. 10. Macrodantin. FAMILY HISTORY: Unobtainable. REVIEW OF SYSTEMS: Unobtainable. PHYSICAL EXAMINATION: GENERAL: A 76-year-old male intubated and on full mechanical ventilation. VITAL SIGNS: Last temperature 91.8 orally, pulse of 61, blood pressure 145/65, saturation of 100%. VENT SETTINGS: Assist control rate of 16, tidal volume of 1200, PEEP of 5, FIO2 50%. HEAD, EYES, EARS, NOSE, THROAT: Normocephalic and atraumatic. Pupils equal, round and reactive to light and accommodation. Extraocular muscles intact. Conjunctivae are pink. Nonicteric sclerae. Oral mucosa within normal limits. NECK: The neck is supple. No jugular venous distention, adenopathy or thyromegaly. Trachea in the midline. CARDIOVASCULAR: Regular rate and rhythm. Normal S1-S2. No murmurs, rubs or gallops noted. PULMONARY: Bilateral equal air entry. No rales or wheezing. ABDOMEN: The abdomen is soft, nontender and no distention. Positive bowel sounds. EXTREMITIES: No cyanosis, clubbing or edema. NEUROLOGIC: Intubated and sedated. EKGS: EKG shows sinus bradycardia with a rate of 50 beats per minute. LABORATORY DATA: Sodium 145, potassium 6, chloride 113, carbon dioxide 26, BUN 51, creatinine 1.37, glucose 78, lactic acid 0.8, total bilirubin less than 0.1. AST 177, ALT 168, alkaline phosphatase 221. Ammonia 17. Troponin less than 0.02. TSH 11. Albumin 2.9. Random cortisol level 9.7. INR 1.2. PT 13.2. PTT 43.6. White blood cell count 6.9, hemoglobin 9.5, hematocrit 29, platelet count of 154,000. Depakote level 26. Urinalysis showed rare bacteria, 2 WBCs. RADIOGRAPHIC STUDIES: CT scan of the brain showed slight atrophic and small vessel ischemic changes without any evidence of acute hemorrhage or mass effect. Chest x-ray post intubation showed right upper lobe and left lower lobe densities, adequate placement of the ET tube. IMPRESSION: 1. Vent-dependent respiratory failure. 2. Aspiration pneumonia. 3. Acute kidney injury. 4. Hyperkalemia. 5. Elevated liver enzymes. 6. History of atrial fibrillation on Pradaxa. 7. Diabetes mellitus. 8. Hypertension. 9. Anemia. 10. Hypothyroidism. 11. History of dementia and seizure disorder. RECOMMENDATIONS: 1. Continue with Versed infusion for sedation and daily sedation vacation when appropriate. 2. Monitor neuro status closely. 3. CT scan of the brain in the ER showed no evidence of any acute hemorrhage or mass effect. . We will check baseline and Dilantin level. The patient has previous history of Dilantin toxicity on previous admissions. Depakote level measured at 26. 4. Continue with vent support and maintain sats above 92%. 5. Bronchodilators in the form of DuoNeb q. 6 and will initiate ICU vent bundle. 6. Decrease FIO2 to 40%. 7. ABG and chest x-ray reviewed. 8. Monitor heart rate and blood pressure closely and maintain MAP greater than 65 mmHg. 9. Lactic acid level measured at 0.8. He was given 1.5 liters of crystalloids in the ED. Will give an additional 1 liter bolus of normal saline followed by maintenance fluids of D5 normal saline at 125 an hour. 10. Monitor renal function, intake and output and avoid nephrotoxins. 11. Will treat hyperkalemia with IV insulin 6 units D50 one amp, one amp of calcium gluconate, one amp of sodium bicarb. 12. Will repeat BMP level at 1800. 13. IV fluids as stated above. 14. Keep NPO for now. 15. Monitor liver function tests and will obtain an ultrasound of the abdomen. 16. Place on Protonix 40 milligrams IV daily for GI prophylaxis. 17. Continue with broad-spectrum antibiotics. He was given Vancomycin and Zosyn in the emergency department and will continue. 18. Follow up on blood cultures and urine cultures which were performed in the emergency room. 19. Will check sputum culture, Strep pneumoniae and Legionella urinary antigen. 20. Add azithromycin. 21. Place on sliding scale insulin with Accu-Chek q. 4 hours for glycemic control. 22. Resume Synthroid 50 micrograms daily. TSH level measured at 11.0. Will obtain a free T3 and free T4 level. Random cortisol level measured 9.7. 23. He was given Decadron 10 milligrams IV push in the emergency department. 24. Monitor CBC for signs of infection, which include fever and WBCs. 25. Start nutrition support with tube feeds within the next 24 hours if remains intubated and if ultrasound of the abdomen showed no acute findings. 26. Place on Protonix 40 milligrams IV daily for GI prophylaxis. 27. DVT prophylaxis with SCDs and heparin subcutaneous. Further recommendations will be based on the hospital course. CRITICAL CARE TIME: Forty (40) minutes. Discussed with the emergency department staff. MD DIDIER Castaneda/LEANDRA /3:54 PM /4:13 PM
[2017-04-17] MEDS: RESP: ALBUTEROL 2.5 MG/IPRATROPIUM 0.5 MG NEB (SCH) INH ×2 (16:35→20:46)
--- NOTE | 2017-04-17 16:44 | RADRPT ---
EXAM DATE/TIME: 04/17/2017 15:56 [facility] COMPARISON: No previous studies available for comparison. INDICATIONS : Elevated lab values. MEDICAL HISTORY : Hypercholesterolemia. Hypertension. Gastroesophageal reflux disease. Dementia. Seizures. Deep vein thrombosis. Urinary tract infection. Anxiety. Depression. Methicillin-resistant staph aureus. SURGICAL HISTORY : Left hip surgery. ENCOUNTER: Initial ACUITY: 1 day PAIN SCORE: Nonresponsive. LOCATION: Bilateral upper quadrant MEASUREMENTS: LIVER: 15.2 cm length COMMON DUCT: Non-visualized RIGHT KIDNEY: 9.8 x 5.1 x 5.5 cm LEFT KIDNEY: 8.8 x 4.9 x 4.9 cm AORTA: 2.0cm maximal FINDINGS: Limited study. LIVER: Normal echotexture without focal lesion or ductal dilatation. Hepatopedal flow. COMMON DUCT: Nonvisualized. GALLBLADDER: Contains no stones, demonstrates no wall thickening or pericholecystic fluid. PANCREAS: Nonvisualized. RIGHT KIDNEY: No hydronephrosis, stone or mass. LEFT KIDNEY: No hydronephrosis, stone or mass. Simple cyst measures 43 x 46 x 39 mm on the upper pole. SPLEEN: Nonvisualized AORTA: Non aneurysmal. IVC: Within normal limits. CONCLUSION: 1. Nonvisualization of the common bile duct, pancreas and spleen. 2. Simple cyst left kidney. Dariusz Louis MD on April 17, 2017 at 16:41 Board Certified Radiologist. This report was verified electronically.
[2017-04-17] MEDS: DEXT 5%-NACL 0.9% 1000 ML INJ 1,000 ML IV SCH (16:46)
[2017-04-17] MEDS ORDERED: CALCIUM GLUCONATE INJ 1 GM in SODIUM CHLORIDE 0.9% INJ 100 ML IV ONE (17:00)
[2017-04-17 17:04] LABS: FREE T3 1.67 PG/ML (2.18-3.98); FREE T4 0.69 NG/DL (0.76-1.46)
[2017-04-17] MEDS: PIPERACIL-TAZO 4.5 GM PREMIX 100 ML IV SCH (18:08)
[2017-04-17] MEDS: AZITHROMYCIN INJ 500 MG in SODIUM CHLOR 0.9% 250 ML INJ 250 ML IV SCH (18:10)
[2017-04-17 19:51] LABS: BICARBONATE 22.1 MEQ/L (21.0-32.0); POTASSIUM 4.2 MEQ/L (3.5-5.1)
[2017-04-17] MEDS ORDERED: NOREPINEPHRINE-DEXTROSE DRIP 250 ML IV ONE (21:23)
[2017-04-17] MEDS: DOCUSATE SODIUM 50 MG/SENNA 8.6 MG TAB PO SCH (21:37)
[2017-04-17] MEDS ORDERED: SODIUM CHLOR 0.9% 1000 ML INJ 1,000 ML IV SCH (22:15)
[2017-04-17] MEDS ORDERED: LEVOTHYROXINE SODIUM 100 MCG VIAL IV PUSH ONE (22:30)
[2017-04-17] MEDS ORDERED: TERBUTALINE INJ 1 MG/ML AMP SQ PRN (23:00)
--- NOTE | 2017-04-17 23:25 | RADRPT ---
EXAM DATE/TIME: 04/17/2017 22:54 [facility] COMPARISON: CHEST SINGLE AP, April 17, 2017, 15:11. INDICATIONS : Central line placement. MEDICAL HISTORY : None. SURGICAL HISTORY : None. ENCOUNTER: Subsequent ACUITY: 4 - 6 days PAIN SCORE: Non-responsive. LOCATION: Bilateral chest FINDINGS: Endotracheal tube nasogastric tube and left subclavian central line are present in good position. The re is no evidence of pneumothorax or other complication of central line placement. There is a persist ent hazy pleural-parenchymal opacity at the left lung base. Cardiac contour is grossly stable. There is mild central vascular congestion. CONCLUSION: Satisfactory central line placement with no pneumothorax Boubacar Pearl MD on April 17, 2017 at 23:23 Board Certified Radiologist. This report was verified electronically.
[2017-04-18] VITALS (19 sets, daily range): BP systolic 70–127; BP diastolic 42–63; PULSE 65–102; RESP 16–17; TEMP 93–99; O2SAT 98–100
[2017-04-18] MEDS: NOREPINEPHRINE-DEXTROSE DRIP 250 ML IV SCH ×2 (00:12→17:55)
[2017-04-18] MEDS ORDERED: VANCOMYCIN INJ 1,000 MG in SODIUM CHLOR 0.9% 250 ML INJ 250 ML IV SCH (01:00)
[2017-04-18] MEDS: PIPERACIL-TAZO 4.5 GM PREMIX 100 ML IV SCH ×3 (01:13→17:54)
[2017-04-18] MEDS: DEXT 5%-NACL 0.9% 1000 ML INJ 1,000 ML IV SCH (01:13)
--- NOTE | 2017-04-18 02:26 | PD.PROCEDR ---
Procedure Note Procedure Centerline placement A time-out was completed verifying correct patient, procedure, site, positioning , and special equipment if applicable. The patient was placed in a dependent position appropriate for central line placement based on the vein to be cannulated. The patients left shoulder was prepped and draped in sterile fashion. 1% Lidocaine was used to anesthetize the surrounding skin area. A triple lumen 9-Cymraes Cordis catheter was introduced into the the left subclavian vein using the Seldinger technique. The catheter was threaded smoothly over the guide wire and appropriate blood return was obtained. Each lumen of the catheter was evacuated of air and flushed with sterile saline. The catheter was then sutured in place to the skin and a sterile dressing applied. Perfusion to the extremity distal to the point of catheter insertion was checked and found to be adequate. Estimated Blood Loss: 1ml The patient tolerated the procedure well and there were no complications. Sanjay Downs MD Apr 18, 2017 02:26
[2017-04-18] MEDS: RESP: ALBUTEROL 2.5 MG/IPRATROPIUM 0.5 MG NEB (SCH) INH ×4 (02:44→20:34)
[2017-04-18] MEDS: HEPARIN SODIUM - SQ 10,000 UNITS/ML VIAL SQ SCH ×2 (04:19→15:44)
[2017-04-18] MEDS: CHLORHEXIDINE GLUCONATE 2 % 1 PACK (2 CLOTHS) TOP SCH (04:20)
[2017-04-18] MEDS: INSULIN NovoLIN REGULAR SUPPLEMENTAL SCALE SQ SCH ×6 (04:21→20:00)
[2017-04-18 05:06] LABS: BASOPHIL % 0.2 % (0.0-2.0); EOSINOPHIL % 0.1 % (0.0-4.0); LYMPH % 12.9 % (9.0-44.0); LYMPHOCYTE # 0.9 TH/MM3 (1.0-4.8); MEAN CELL VOLUME 95.5 FL (80.0-100.0); MEAN CORPUSCULAR HGB CONC 33.5 % (32.0-36.0); MONO % 2.3 % (0.0-8.0); NEUT % 84.5 % (16.0-70.0); PLATELET COUNT 134 TH/MM3 (150-450); RED BLOOD COUNT 2.12 MIL/MM3 (4.50-5.90); RED CELL DISTRIBUTION WIDTH 16.9 % (11.6-17.2); WHITE BLOOD COUNT 7.1 TH/MM3 (4.0-11.0)
[2017-04-18 05:07] LABS: HEMO FLAGS DIFF FINAL
[2017-04-18 05:08] LABS: HEMATOCRIT 20.3 % (39.0-51.0)
[2017-04-18 05:35] LABS: ALKALINE PHOSPHATASE 150 U/L (45-117); ALT (GPT) 102 U/L (12-78); ANION GAP 8 MEQ/L (5-15); AST (GOT) 116 U/L (15-37); BICARBONATE 21.6 MEQ/L (21.0-32.0); BLOOD UREA NITROGEN 35 MG/DL (7-18); CHLORIDE 122 MEQ/L (98-107); GLOMERULAR FILTRATION RATE 64 ML/MIN (>89); POTASSIUM 4.1 MEQ/L (3.5-5.1); SODIUM (NA) 152 MEQ/L (136-145); TOTAL BILIRUBIN ADULT 0.1 MG/DL (0.2-1.0)
[2017-04-18] MEDS: LEVOTHYROXINE SODIUM 50 MCG TAB PO SCH (05:55)
--- NOTE | 2017-04-18 06:37 | RADRPT ---
EXAM DATE/TIME: 04/18/2017 04:03 [place] COMPARISON: CHEST SINGLE AP, April 17, 2017, 22:54. INDICATIONS : Respiratory failure, sepsis MEDICAL HISTORY : None. SURGICAL HISTORY : None. ENCOUNTER: Subsequent ACUITY: 1 week PAIN SCORE: Non-responsive. LOCATION: Bilateral chest FINDINGS: Endotracheal tube, nasogastric tube and left subclavian central line are present. There is consolidat ion and effusion at the left lung base. Right lung is grossly clear. Visualized cardiac contours are stable. CONCLUSION: No significant change Boubacar Pearl MD on April 18, 2017 at 6:35 Board Certified Radiologist. This report was verified electronically.
[2017-04-18] MEDS ORDERED: MAGNESIUM SULFATE INJ 4 GM in SODIUM CHLORIDE 0.9% INJ 92 ML IV PRN (07:30)
[2017-04-18] MEDS ORDERED: MAGNESIUM SULFATE INJ 2 GM in SODIUM CHLORIDE 0.9% INJ 96 ML IV PRN (07:30)
[2017-04-18] MEDS ORDERED: POTASSIUM CHLORIDE 25 MEQ EFFERVESCENT TAB PO PRN (07:30)
[2017-04-18] MEDS ORDERED: SODIUM PHOSPHATE INJ 30 MMOL in SODIUM CHLOR 0.9% 250 ML INJ 240 ML IV PRN (07:30)
[2017-04-18] MEDS ORDERED: POTASSIUM PHOSPHATE MONOBASIC 500 MG TAB PO/TUBE PRN (07:30)
[2017-04-18] MEDS ORDERED: POTASSIUM CHLOR 40 MEQ PREMIX 100 ML IV PRN (07:30)
[2017-04-18] MEDS ORDERED: POTASSIUM PHOSPHATE MONOBASIC 500 MG TAB PO PRN (07:30)
[2017-04-18] MEDS ORDERED: POTASSIUM CHLOR 20 MEQ PREMIX 100 ML IV PRN (07:30)
[2017-04-18] MEDS ORDERED: POTASSIUM PHOSPHATE INJ 30 MMOL in SODIUM CHLOR 0.9% 250 ML INJ 250 ML IV PRN (07:30)
[2017-04-18] MEDS ORDERED: MAGNESIUM OXIDE 400 MG TAB PO PRN (07:30)
[2017-04-18] MEDS: DEXTROSE 5% IN WATE 1000ML INJ 1,000 ML IV SCH ×2 (07:54→19:25)
[2017-04-18] MEDS: PANTOPRAZOLE SODIUM 40 MG VIAL IV SCH (07:55)
[2017-04-18] MEDS: DOCUSATE SODIUM 50 MG/SENNA 8.6 MG TAB PO SCH ×2 (07:55→20:13)
[2017-04-18] MEDS: HYDROCORTISONE SOD SUCCINATE 100 MG VIAL IV PUSH SCH ×2 (07:55→15:44)
[2017-04-18] MEDS: FREE WATER G-TUBE SCH ×2 (08:00→15:44)
--- NOTE | 2017-04-18 08:52 | HHI.CCPN ---
Subjective Remarks/Hospital Course The patient is a 76-year-old [facility] resident with a past medical history of hypothyroidism, hypertension, diabetes mellitus, dementia, seizure disorder, atrial fibrillation on Pradaxa who presented to the [facility] Emergency Department for confusion and altered mental status. The patient was also found hypothermic with a temperature of 88.9 rectally. His laboratory data showed acute kidney injury with creatinine level 1.37 and hyperkalemia with a potassium level 6.0. His lactic acid level measured at 0.8. In addition, he was found to have elevated liver enzymes with AST 177, ALT 168 and total bilirubin less than 0.1. Due to altered mental status, the patient was intubated with etomidate, vecuronium and placed on full mechanical ventilation. CT scan of the brain obtained in the emergency department showed slight atrophic and small vessel ischemic changes without any evidence for acute hemorrhage or mass effect. Chest x-ray post intubation showed right upper lobe and left lower lobe densities and adequate placement of the ET tube. In the emergency room, the patient was given approximately 1.5 liters of crystalloids in addition to vancomycin and Zosyn for possible aspiration pneumonia. Other significant labs showed a TSH of 11.0 and a random cortisol level of 9.7. He was also be given Decadron 10 mg IV push. ABG post-intubation showed a pH of 7.43, CO2 38, pAO2 186, bicarb 25, saturation 98% on assist control ventilation with a rate of 16, tidal volume 500, PEEP of 5 and FIO2 of 50%. When seen in the emergency room, he was sedated with Versed. 04/18 Patient is intubated and sedated with Versed 5mg started on Levophed 4 mics overnight. Hgb 6.8 this morning. Objective Vital Signs Date Time Temp Pulse Resp B/P Pulse Ox O2 Delivery O2 Flow Rate FiO2 04/18/17 07:44 100 35 04/18/17 06:00 77 04/18/17 05:00 98.6 04/18/17 04:00 16 90/53 04/17/17 17:00 Ventilator 04/17/17 14:00 2 Intake and Output 04/17/17 04/17/17 04/18/17 08:00 16:00 00:00 Intake Total 2123 ml Output Total 550 ml Balance 1573 ml Result Diagram: 04/18/17 0410 04/18/17 0410 Other Results Laboratory Tests Test 04/17/17 04/17/17 04/17/17 04/17/17 12:15 12:20 12:25 14:10 White Blood Count 6.0 TH/MM3 Red Blood Count 2.99 MIL/MM3 Hemoglobin 9.5 GM/DL Hematocrit 29.0 % Mean Corpuscular Volume 97.0 FL Mean Corpuscular Hemoglobin 31.7 PG Mean Corpuscular Hemoglobin 32.7 % Concent Red Cell Distribution Width 17.1 % Platelet Count 154 TH/MM3 Mean Platelet Volume 8.8 FL Neutrophils (%) (Auto) 57.8 % Lymphocytes (%) (Auto) 34.2 % Monocytes (%) (Auto) 6.2 % Eosinophils (%) (Auto) 1.6 % Basophils (%) (Auto) 0.2 % Neutrophils # (Auto) 3.4 TH/MM3 Lymphocytes # (Auto) 2.0 TH/MM3 Monocytes # (Auto) 0.4 TH/MM3 Eosinophils # (Auto) 0.1 TH/MM3 Basophils # (Auto) 0.0 TH/MM3 CBC Comment DIFF FINAL Differential Comment Prothrombin Time 13.2 SEC Prothromb Time International 1.2 RATIO Ratio Activated Partial 43.6 SEC Thromboplast Time Sodium Level 145 MEQ/L Potassium Level 6.0 MEQ/L Chloride Level 113 MEQ/L Carbon Dioxide Level 26.8 MEQ/L Anion Gap 5 MEQ/L Blood Urea Nitrogen 51 MG/DL Creatinine 1.37 MG/DL Estimat Glomerular Filtration 61 ML/MIN Rate Random Glucose 78 MG/DL Calcium Level 8.9 MG/DL Total Bilirubin LESS THAN 0.1 MG/DL Aspartate Amino Transf 177 U/L (AST/SGOT) Alanine Aminotransferase 168 U/L (ALT/SGPT) Alkaline Phosphatase 221 U/L Ammonia 17 MCMOL/L Total Creatine Kinase 57 U/L Troponin I LESS THAN 0.02 NG/ML Total Protein 7.9 GM/DL Albumin 2.9 GM/DL Free Thyroxine 0.69 NG/DL Free Triiodothyronine (T3) 1.67 PG/ML pg/dL Thyroid Stimulating Hormone 11.000 uIU/ML 3rd Gen Phenytoin (Dilantin) Level 28.4 MCG/ML Valproic Acid (Depakene) Level 26 MCG/ML Lactic Acid Level 0.8 mmol/L Urine Color YELLOW Urine Turbidity CLEAR Urine pH 5.5 Urine Specific [place] 1.029 Urine Protein TRACE mg/dL Urine Glucose (UA) NEG mg/dL Urine Ketones TRACE mg/dL Urine Occult Blood NEG Urine Nitrite NEG Urine Bilirubin NEG Urine Urobilinogen LESS THAN 2.0 MG/DL Urine Leukocyte Esterase NEG Urine RBC 1 /hpf Urine WBC 2 /hpf Urine Transitional Epithelial <1 /hpf Cells Urine Bacteria RARE /hpf Urine Hyaline Casts 5 /lpf Microscopic Urinalysis Comment CATH-CULTURE IND Random Cortisol 9.7 MCG/DL Test 04/17/17 04/17/17 04/17/17 04/18/17 15:29 17:20 19:01 04:10 Blood Gas Puncture Site RT FEMORAL Blood Gas Patient Temperature 98.6 Blood Gas HCO3 25 mmol/L Blood Gas Base Excess 1.0 mmol/L Blood Gas Oxygen Saturation 98 % Arterial Blood pH 7.43 Arterial Blood Partial 38 mmHg Pressure CO2 Arterial Blood Partial 186 mmHG Pressure O2 Arterial Blood Oxygen Content 11.0 Vol % Arterial Blood 1.2 % Carboxyhemoglobin Arterial Blood Methemoglobin 0.6 % Blood Gas Hemoglobin 7.6 G/DL Oxygen Delivery Device VENTILATOR Blood Gas Ventilator Setting 500/16/+5 Blood Gas Inspired Oxygen 50 % Nasal Screen MRSA (PCR) MRSA DETECTED Sodium Level 150 MEQ/L 152 MEQ/L Potassium Level 4.2 MEQ/L 4.1 MEQ/L Chloride Level 120 MEQ/L 122 MEQ/L Carbon Dioxide Level 22.1 MEQ/L 21.6 MEQ/L Anion Gap 8 MEQ/L 8 MEQ/L Blood Urea Nitrogen 44 MG/DL 35 MG/DL Creatinine 1.37 MG/DL 1.32 MG/DL Estimat Glomerular Filtration 61 ML/MIN 64 ML/MIN Rate Random Glucose 195 MG/DL 93 MG/DL Calcium Level 8.0 MG/DL 7.6 MG/DL White Blood Count 7.1 TH/MM3 Red Blood Count 2.12 MIL/MM3 Hemoglobin 6.8 GM/DL Hematocrit 20.3 % Mean Corpuscular Volume 95.5 FL Mean Corpuscular Hemoglobin 32.0 PG Mean Corpuscular Hemoglobin 33.5 % Concent Red Cell Distribution Width 16.9 % Platelet Count 134 TH/MM3 Mean Platelet Volume 8.5 FL Neutrophils (%) (Auto) 84.5 % Lymphocytes (%) (Auto) 12.9 % Monocytes (%) (Auto) 2.3 % Eosinophils (%) (Auto) 0.1 % Basophils (%) (Auto) 0.2 % Neutrophils # (Auto) 6.0 TH/MM3 Lymphocytes # (Auto) 0.9 TH/MM3 Monocytes # (Auto) 0.2 TH/MM3 Eosinophils # (Auto) 0.0 TH/MM3 Basophils # (Auto) 0.0 TH/MM3 CBC Comment DIFF FINAL Differential Comment Phosphorus Level 0.4 MG/DL Magnesium Level 2.0 MG/DL Total Bilirubin 0.1 MG/DL Aspartate Amino Transf 116 U/L (AST/SGOT) Alanine Aminotransferase 102 U/L (ALT/SGPT) Alkaline Phosphatase 150 U/L Total Protein 5.7 GM/DL Albumin 2.0 GM/DL Test 04/18/17 06:05 Blood Type O POSITIVE Antibody Screen NEGATIVE Imaging Last Impressions Chest X-Ray 04/18/17 0000 Signed Impressions: Service Date/Time: Tuesday, April 18, 2017 04:03 - CONCLUSION: No significant change Boubacar Pearl MD Head CT 04/17/17 1212 Signed Impressions: Service Date/Time: Monday, April 17, 2017 14:38 - CONCLUSION: Slight atrophic and small vessel ischemic changes without any evidence for acute hemorrhage or mass effect. Omer Urena MD Abdomen Ultrasound 04/17/17 0000 Signed Impressions: Service Date/Time: Monday, April 17, 2017 15:56 - CONCLUSION: 1. Nonvisualization of the common bile duct, pancreas and spleen. 2. Simple cyst left kidney. Dariusz Louis MD Objective Remarks GENERAL: Patient is 76 yo intubated and sedated SKIN: Warm and dry. HEAD: Normocephalic. EYES: No scleral icterus. No injection or drainage. NECK: Supple, trachea midline. No JVD or lymphadenopathy. CARDIOVASCULAR: Regular rate and rhythm without murmurs, gallops, or rubs. RESPIRATORY: Breath sounds equal bilaterally. No accessory muscle use. GASTROINTESTINAL: Abdomen soft, non-tender, nondistended. MUSCULOSKELETAL: No cyanosis, or edema. Neuro: Sedated A/P Assessment and Plan 1. VDRF 2. Aspiration pneumonia. 3. Acute kidney injury. 4. s/p Hyperkalemia. 5. Elevated liver enzymes. 6. History of atrial fibrillation on Pradaxa. 7. Diabetes mellitus. 8. Hypertension. 9. Anemia. 10. Hypothyroidism. 11. History of dementia and seizure disorder. Plan: Neuro: On Versed infusion for sedation and daily sedation vacation when appropriate. Monitor neuro status CT brain in the ER showed no evidence of any acute hemorrhage or mass effect. Dilantin level: 28.4 04/17 recheck level today. Depakote level measured at 26. Pulm: Continue with vent support and maintain sats above 92%. Bronchodilators, ICU vent bundle. CV: Wean off Levophed keep MAP>65mmHg Lactic acid level measured at 0.8. Continue with IVF Place on stress dose steroids- HC 100mg IV Q8 : Monitor renal function, intake and output and avoid nephrotoxins. Cr: 1.32, change IVF D5W@84ml/hr, add Free water 250ml Q8, monitor sodium level. GI: Monitor LFT's, US abdomen: Nonvisualization of the common bile duct, pancreas and spleen. Simple cyst left kidney Normal liver, no gallstones. on Protonix 40mg IV daily for GI prophylaxis. Start tube feeds- Glucerna 1.5 with goal rate 45ml/hr ID: Given Vancomycin and Zosyn in ED Continue with Vanco, Zosyn, Azithromycin. Follow up on blood cultures and urine cultures. Check sputum cx Strep pneumoniae and Legionella urinary antigen negative. Endo: SSI with Accu-Chek q. 4 hours for glycemic control. Continue Synthroid 50 micrograms daily. TSH level: 11.0. FT4:0.69(L), FT3 level: 1.67(L) Random cortisol level measured 9.7. Sterids- HC 100,g IV Q8 Heme: Monitor CBC DVT prophylaxis with SCDs, hold heparin SQ given anemia GI prophylaxis- On Protonix 40mg IV daily Lines: Left subclavian CVP placed 04/18 CCT 30 mins Jennifer Restrepo MD Apr 18, 2017 08:52
[2017-04-18] MEDS: MIDAZOLAM 100 MG/ML INJ 100 ML IV SCH (09:02)
[2017-04-18 10:54] LABS: AUTOMATED NEUTROPHIL # 7.5 TH/MM3 (1.8-7.7); BASOPHIL % 0.2 % (0.0-2.0); EOSINOPHIL % 0.3 % (0.0-4.0); LYMPH % 17.5 % (9.0-44.0); LYMPHOCYTE # 1.7 TH/MM3 (1.0-4.8); MEAN CELL VOLUME 94.8 FL (80.0-100.0); MEAN CORPUSCULAR HEMOGLOBIN 32.1 PG (27.0-34.0); MEAN CORPUSCULAR HGB CONC 33.9 % (32.0-36.0); MONO % 5.7 % (0.0-8.0); NEUT % 76.3 % (16.0-70.0); PLATELET COUNT 139 TH/MM3 (150-450); RED BLOOD COUNT 2.16 MIL/MM3 (4.50-5.90); RED CELL DISTRIBUTION WIDTH 16.8 % (11.6-17.2); WHITE BLOOD COUNT 9.8 TH/MM3 (4.0-11.0)
[2017-04-18 10:55] LABS: HEMO FLAGS DIFF FINAL
[2017-04-18 10:57] LABS: HEMATOCRIT 20.5 % (39.0-51.0)
[2017-04-18] MEDS: VANCOMYCIN INJ 1,000 MG in SODIUM CHLOR 0.9% 250 ML INJ 250 ML IV SCH (13:09)
[2017-04-18] MEDS: AZITHROMYCIN INJ 500 MG in SODIUM CHLOR 0.9% 250 ML INJ 250 ML IV SCH (16:01)
[2017-04-18] MEDS ORDERED: BUMETANIDE INJ 1 MG/4 ML VIAL IV PUSH ONE (16:30)
[2017-04-18 17:58] LABS: HEMATOCRIT 23.7 % (39.0-51.0); REVIEW FLAG FINAL
--- NOTE | 2017-04-18 18:30 | EKG ---
Date Performed: 04/17/2017 Time Performed: 12:21:19 PTAGE: 76 years EKG: SINUS BRADYCARDIA MODERATE INTRAVENTRICULAR CONDUCTION DELAY PROLONGED QT INTERVAL ABNORMAL ECG PREVIOUS TRACING : 03/01/2017 11.31 Compared to prior tracing no significant change DOCTOR: Chad Cee Interpretating Date/Time 04/18/2017 18:29:01
[2017-04-18 18:45] LABS: CREATINE KINASE 70 U/L (39-308)
[2017-04-19] VITALS (25 sets, daily range): BP systolic 89–158; BP diastolic 51–86; PULSE 59–96; RESP 16; TEMP 91.7–98.1; O2SAT 97–100
[2017-04-19] MEDS: HYDROCORTISONE SOD SUCCINATE 100 MG VIAL IV PUSH SCH ×3 (01:03→17:03)
[2017-04-19] MEDS: PIPERACIL-TAZO 4.5 GM PREMIX 100 ML IV SCH ×3 (01:05→17:55)
[2017-04-19] MEDS: MIDAZOLAM 100 MG/ML INJ 100 ML IV SCH (02:23)
[2017-04-19] MEDS: RESP: ALBUTEROL 2.5 MG/IPRATROPIUM 0.5 MG NEB (SCH) INH ×4 (03:47→19:57)
[2017-04-19] MEDS: INSULIN NovoLIN REGULAR SUPPLEMENTAL SCALE SQ SCH ×6 (03:56→20:47)
[2017-04-19] MEDS: CHLORHEXIDINE GLUCONATE 2 % 1 PACK (2 CLOTHS) TOP SCH (03:56)
[2017-04-19] MEDS: HEPARIN SODIUM - SQ 10,000 UNITS/ML VIAL SQ SCH ×2 (03:56→14:39)
[2017-04-19] MEDS: LEVOTHYROXINE SODIUM 50 MCG TAB PO SCH (03:57)
[2017-04-19 05:34] LABS: AUTOMATED NEUTROPHIL # 10.4 TH/MM3 (1.8-7.7); BASOPHIL % 0.1 % (0.0-2.0); EOSINOPHIL % 0.1 % (0.0-4.0); HEMATOCRIT 24.9 % (39.0-51.0); HEMO FLAGS DIFF FINAL; LYMPH % 11.2 % (9.0-44.0); LYMPHOCYTE # 1.4 TH/MM3 (1.0-4.8); MEAN CELL VOLUME 92.7 FL (80.0-100.0); MEAN CORPUSCULAR HEMOGLOBIN 30.2 PG (27.0-34.0); MEAN CORPUSCULAR HGB CONC 32.6 % (32.0-36.0); MONO % 3.4 % (0.0-8.0); NEUT % 85.2 % (16.0-70.0); PLATELET COUNT 135 TH/MM3 (150-450); RED BLOOD COUNT 2.68 MIL/MM3 (4.50-5.90); RED CELL DISTRIBUTION WIDTH 19.4 % (11.6-17.2); WHITE BLOOD COUNT 12.2 TH/MM3 (4.0-11.0)
[2017-04-19 05:56] LABS: BICARBONATE 20.1 MEQ/L (21.0-32.0); POTASSIUM 3.3 MEQ/L (3.5-5.1)
[2017-04-19 06:00] LABS: CALCIUM-PROTEIN CORRECTED 7.8 MG/DL (8.5-10.1); TOTAL BILIRUBIN ADULT 0.2 MG/DL (0.2-1.0)
[2017-04-19] MEDS: DEXTROSE 5% IN WATE 1000ML INJ 1,000 ML IV SCH ×2 (06:36→20:49)
[2017-04-19] MEDS: POTASSIUM CHLOR 20 MEQ PREMIX 100 ML IV PRN ×2 (06:46→07:53)
--- NOTE | 2017-04-19 07:11 | EKG ---
Date Performed: 04/18/2017 Time Performed: 16:54:04 PTAGE: 76 years EKG: Sinus tachycardia. Extensive ST-T changes may be due to myocardial ischemia Abnormal ECG PREVIOUS TRACING : 04/17/2017 12.21 Compared to previous tracing, heart rate has increased, dif fuse ST/T changes are now present. DOCTOR: Robel Gomez Interpretating Date/Time 04/19/2017 07:10:44
[2017-04-19] MEDS: PANTOPRAZOLE SODIUM 40 MG VIAL IV SCH (07:51)
[2017-04-19] MEDS: DOCUSATE SODIUM 50 MG/SENNA 8.6 MG TAB PO SCH ×2 (07:51→20:47)
[2017-04-19] MEDS: FREE WATER G-TUBE SCH ×3 (07:53→16:00)
[2017-04-19] MEDS: VANCOMYCIN INJ 1,000 MG in SODIUM CHLOR 0.9% 250 ML INJ 250 ML IV SCH (11:22)
--- NOTE | 2017-04-19 12:20 | HHI.CCPN ---
Subjective Remarks/Hospital Course The patient is a 76-year-old longterm resident with a past medical history of hypothyroidism, hypertension, diabetes mellitus, dementia, seizure disorder, atrial fibrillation on Pradaxa who presented to the [facility] Emergency Department for confusion and altered mental status. The patient was also found hypothermic with a temperature of 88.9 rectally. His laboratory data showed acute kidney injury with creatinine level 1.37 and hyperkalemia with a potassium level 6.0. His lactic acid level measured at 0.8. In addition, he was found to have elevated liver enzymes with AST 177, ALT 168 and total bilirubin less than 0.1. Due to altered mental status, the patient was intubated with etomidate, vecuronium and placed on full mechanical ventilation. CT scan of the brain obtained in the emergency department showed slight atrophic and small vessel ischemic changes without any evidence for acute hemorrhage or mass effect. Chest x-ray post intubation showed right upper lobe and left lower lobe densities and adequate placement of the ET tube. In the emergency room, the patient was given approximately 1.5 liters of crystalloids in addition to vancomycin and Zosyn for possible aspiration pneumonia. Other significant labs showed a TSH of 11.0 and a random cortisol level of 9.7. He was also be given Decadron 10 mg IV push. ABG post-intubation showed a pH of 7.43, CO2 38, pAO2 186, bicarb 25, saturation 98% on assist control ventilation with a rate of 16, tidal volume 500, PEEP of 5 and FIO2 of 50%. When seen in the emergency room, he was sedated with Versed. 04/18 Patient is intubated and sedated with Versed 5mg started on Levophed 4 mics overnight. Hgb 6.8 this morning. 04/19 Patient remains intubated with versed. Off Levophed. s/p transfusion 1unit PRBC yesterday. Objective Vital Signs Date Time Temp Pulse Resp B/P Pulse Ox O2 Delivery O2 Flow Rate FiO2 04/19/17 12:06 35 04/19/17 12:06 99 04/19/17 10:00 75 04/19/17 08:00 91.7 16 158/86 04/17/17 17:00 Ventilator 04/17/17 14:00 2 Intake and Output 04/18/17 04/18/17 04/19/17 08:00 16:00 00:00 Intake Total 3129 ml 1603 ml 1530 ml Output Total 300 ml 175 ml 550 ml Balance 2829 ml 1428 ml 980 ml Result Diagram: 04/19/17 0430 04/19/17 0430 Other Results Laboratory Tests Test 04/18/17 04/18/17 04/18/17 04/19/17 12:26 17:10 17:30 04:30 Crossmatch Leukocyte-Reduced Red Blood Cells Blood Bank Comment Total Creatine Kinase 70 U/L Troponin I LESS THAN 0.02 NG/ML Hemoglobin 8.0 GM/DL 8.1 GM/DL Hematocrit 23.7 % 24.9 % White Blood Count 12.2 TH/MM3 Red Blood Count 2.68 MIL/MM3 Mean Corpuscular Volume 92.7 FL Mean Corpuscular Hemoglobin 30.2 PG Mean Corpuscular Hemoglobin 32.6 % Concent Red Cell Distribution Width 19.4 % Platelet Count 135 TH/MM3 Mean Platelet Volume 7.8 FL Neutrophils (%) (Auto) 85.2 % Lymphocytes (%) (Auto) 11.2 % Monocytes (%) (Auto) 3.4 % Eosinophils (%) (Auto) 0.1 % Basophils (%) (Auto) 0.1 % Neutrophils # (Auto) 10.4 TH/MM3 Lymphocytes # (Auto) 1.4 TH/MM3 Monocytes # (Auto) 0.4 TH/MM3 Eosinophils # (Auto) 0.0 TH/MM3 Basophils # (Auto) 0.0 TH/MM3 CBC Comment DIFF FINAL Differential Comment Sodium Level 148 MEQ/L Potassium Level 3.3 MEQ/L Chloride Level 117 MEQ/L Carbon Dioxide Level 20.1 MEQ/L Anion Gap 11 MEQ/L Blood Urea Nitrogen 28 MG/DL Creatinine 1.50 MG/DL Estimat Glomerular Filtration 55 ML/MIN Rate Random Glucose 119 MG/DL Calcium Level 7.3 MG/DL Protein Corrected Calcium 7.8 MG/DL Phosphorus Level 3.2 MG/DL Magnesium Level 2.0 MG/DL Total Bilirubin 0.2 MG/DL Aspartate Amino Transf 110 U/L (AST/SGOT) Alanine Aminotransferase 108 U/L (ALT/SGPT) Alkaline Phosphatase 173 U/L Total Protein 6.2 GM/DL Albumin 2.0 GM/DL Phenytoin (Dilantin) Level 18.0 MCG/ML Imaging Last Impressions Chest X-Ray 04/18/17 0000 Signed Impressions: Service Date/Time: Tuesday, April 18, 2017 04:03 - CONCLUSION: No significant change Boubacar Pearl MD Head CT 04/17/17 1212 Signed Impressions: Service Date/Time: Monday, April 17, 2017 14:38 - CONCLUSION: Slight atrophic and small vessel ischemic changes without any evidence for acute hemorrhage or mass effect. Omer Urena MD Abdomen Ultrasound 04/17/17 0000 Signed Impressions: Service Date/Time: Monday, April 17, 2017 15:56 - CONCLUSION: 1. Nonvisualization of the common bile duct, pancreas and spleen. 2. Simple cyst left kidney. Dariusz Louis MD Objective Remarks GENERAL: Patient is 76 yo intubated and sedated SKIN: Warm and dry. HEAD: Normocephalic. EYES: No scleral icterus. No injection or drainage. NECK: Supple, trachea midline. No JVD or lymphadenopathy. CARDIOVASCULAR: Regular rate and rhythm without murmurs, gallops, or rubs. RESPIRATORY: Breath sounds equal bilaterally. No accessory muscle use. GASTROINTESTINAL: Abdomen soft, non-tender, nondistended. MUSCULOSKELETAL: No cyanosis, or edema. Neuro: Sedated A/P Assessment and Plan 1. VDRF 2. Aspiration pneumonia. 3. Acute kidney injury. 4. s/p Hyperkalemia. 5. Elevated liver enzymes. 6. History of atrial fibrillation on Pradaxa. 7. Diabetes mellitus. 8. Hypertension. 9. Anemia. 10. Hypothyroidism. 11. History of dementia and seizure disorder. Plan: Neuro: On Versed infusion for sedation and daily sedation vacation when appropriate. Monitor neuro status CT brain in the ER showed no evidence of any acute hemorrhage or mass effect. Dilantin level: 18 today, check EEG Pulm: Continue with vent support and maintain sats above 92%. Bronchodilators, ICU vent bundle. Will check CT chest wo contrast for further eval pulm parenchyma CV: Off Levophed keep MAP>65mmHg Lactic acid level measured at 0.8. Continue with IVF On stress dose steroids- HC 100mg IV Q8 : Monitor renal function, intake and output and avoid nephrotoxins. Cr: Cr: 1.50 from 1.32 with UOP:1075 ml in 24 hrs , IVF D5W@84ml/hr, Free water 250ml Q8, monitor sodium level. GI: Monitor LFT's, US abdomen: Nonvisualization of the common bile duct, pancreas and spleen. Simple cyst left kidney Normal liver, no gallstones. Check CT abdomen/pelvis on Protonix 40mg IV daily for GI prophylaxis. On tube feeds-- Glucerna 1.5 with goal rate 45ml/hr ID: Given Vancomycin and Zosyn in ED Continue with Vanco, Zosyn, Azithromycin. Follow up on blood cultures and urine cultures. Check sputum cx Strep pneumoniae and Legionella urinary antigen negative. Endo: SSI with Accu-Chek q. 4 hours for glycemic control. Continue Synthroid 50 mcg daily. TSH level: 11.0. FT4:0.69(L), FT3 level: 1.67(L) Random cortisol level measured 9.7. Sterids- HC 100,g IV Q8 Heme: Monitor CBC DVT prophylaxis with SCDs, hold heparin SQ given anemia requiring blood transfusion GI prophylaxis- On Protonix 40mg IV daily Lines: Left subclavian CVP placed 04/18 CCT 30 mins Jennifer Restrepo MD Apr 19, 2017 12:20
[2017-04-19] MEDS ORDERED: PHARMACY ORDERED LAB-VANCO TROUGH ONE (12:45)
[2017-04-19 13:14] LABS: BLOOD GAS BASE EXCESS -5.4 mmol/L (-2-2); BLOOD GAS CARBOXYHEMOGLOBIN 1.2 % (0-4); BLOOD GAS HCO3 19 mmol/L (22-26); BLOOD GAS METHEMOGLOBIN 1.2 % (0-2); BLOOD GAS O2 HGB SATURATION 97 % (90-100); BLOOD GAS OXYGEN CONTENT 11.5 Vol % (12.0-20.0); BLOOD GAS PCO2 31 mmHg (38-42); BLOOD GAS PO2 174 mmHg (61-120); BLOOD GAS TOTAL HGB 8.2 G/DL (12.0-16.0); CRITICAL VALUE NO; FIO2 35 %; OXYGEN DEVICE VENTILATOR; TEMP CORR TO 98.6; VENT SETTINGS CPAP PS10/PEEP5
[2017-04-19 13:15] LABS: DRAW SITE RT RADIAL; NUMBER OF ARTERIAL PUNCTURES 1; STAT NO; ULNAR PULSE PRESENT
[2017-04-19] MEDS ORDERED: DIATRIZOATE MEGLUM/DIATRIZOATE SOD 9 ML CUP PO ONE (13:15)
[2017-04-19] MEDS: LACTULOSE SYRUP 20 GM/30 ML CUP PO SCH ×2 (14:38→20:46)
--- NOTE | 2017-04-19 16:52 | PD.ID.CON ---
History of Present Illness Service ID Consult Requested By Reason for Consult Evaluation and Mment of persistent hypothermia, sepsis, aspiration pneumonia, Altered mental status. Primary Care Physician Unknown Diagnoses: History of Present Illness is a 76 y/o [facility] resident with a reported PMHx of hypothyroidism, hypertension, diabetes mellitus, dementia, seizure disorder on Dilantin, atrial fibrillation on Pradaxa who presented to the [facility] Emergency Department for confusion and altered mental status. The patient was also found hypothermic with a temperature of 88.9 rectally. History obtained from review of medical records no family could be reached. His laboratory data showed acute kidney injury with creatinine level 1.37 and hyperkalemia with a potassium level 6.0. His lactic acid level measured at 0.8. In addition, he was found to have elevated liver enzymes with AST 177, ALT 168 and total bilirubin less than 0.1. Due to altered mental status, the patient was intubated with etomidate, vecuronium and placed on full mechanical ventilation. CT scan of the brain obtained in the emergency department showed slight atrophic and small vessel ischemic changes without any evidence for acute hemorrhage or mass effect. Chest x-ray post intubation showed right upper lobe and left lower lobe densities and adequate placement of the ET tube. In the emergency room, the patient was given approximately 1.5 liters of crystalloids in addition to vancomycin and Zosyn for possible aspiration pneumonia. Other significant labs showed a TSH of 11.0 and a random cortisol level of 9.7. He was also be given Decadron 10 mg IV push. ABG post-intubation showed a pH of 7.43, CO2 38, pAO2 186, bicarb 25, saturation 98% on assist control ventilation with a rate of 16, tidal volume 500, PEEP of 5 and FIO2 of 50%. Patient seen in the ICU intubated, off sedation but no purposeful movements, not following commands, was moving his neck and upper body in all directions. Patient is not on pressors but is on a bear hugger to maintain body temperature as he continues to be hypothermic. UO is adequate. No diarrhea, no rash, no fevers, No witnessed seizures. Of note his dilantin level is supra therapeutic. ID consulted for evaluation of persistent hypothermia, sepsis, aspiration pneumonia, Altered mental status. Review of Systems ROS Limitations: Intubated, Altered Mental Status Past Family Social History Allergies: Coded Allergies: *MDRO Multi-Drug Resistant Organism (Verified Adverse Reaction, Unknown, MRSA, 04/19/17) MRSA PCR screen (nar) POSITIVE - 06/13/16, 04/17/17 Past Medical History 1. Dementia. 2. Hypertension. 3. Seizure disorder. 4. Atrial fibrillation. 5. Diabetes. 6. Gastroesophageal reflux disease (GERD). 7. Schizophrenia. 8. Chronic kidney disease. 9. Anemia. Past Surgical History Previous left hip surgery. Reported Medications Reported Meds & Active Scripts Active Lorazepam 1 Mg Tab 1 Mg EXTERNAL Q6HR PRN Synthroid (Levothyroxine Sodium) 50 Mcg Tab 50 Mcg PO DAILY@0600 Reported [place] (Hydrocodone-Acetaminophen) 5-325 mg Tab 1 Tab PO Q12HR PRN Dilantin-125 Liq (Phenytoin) 125 Mg/5 Ml Susp 200 Mg PO Q12HR Trimethoprim 100 Mg Tab 100 Mg PO HS Tylenol (Acetaminophen) 325 Mg Tab 650 Mg PO Q4H PRN Macrodantin (Nitrofurantoin Macrocrystal) 50 Mg Cap 50 Mg PO DAILY Zyprexa (Olanzapine) 10 Mg Tab 10 Mg PO HS Lactulose Liq (Lactulose) 10 Gm/15 Ml Soln 45 Ml PO TID PRN Pradaxa (Dabigatran) 150 Mg Cap 150 Mg PO BID Metoprolol Tartrate 50 Mg Tab 50 Mg PO BID Lexapro (Escitalopram Oxalate) 10 Mg Tab 10 Mg PO DAILY Divalproex DR (Divalproex Sodium) 250 Mg Tabdr 750 Mg PO BID Atorvastatin (Atorvastatin Calcium) 80 Mg Tab 80 Mg PO HS Active Ordered Medications Current Medications Medications (Trade) Dose Ordered Sig/Miquel Route Start Time Stop Time Status Last Admin (NS Flush) 2 ml UNSCH PRN IV FLUSH 04/17/17 12:15 04/17/17 15:06 (Protonix Inj) 40 mg DAILY IV 04/17/17 15:30 04/19/17 07:51 (Heparin Inj) 5,000 units Q12H SQ 04/17/17 15:30 04/19/17 14:39 Miscellaneous Information 1 Q361D XX 04/17/17 15:30 (Chlorhexidine 2% Cloth) 3 pack Taper DAILY@04 TOP 04/18/17 04:00 04/14/18 03:59 7/24/17 03:56 (Chlorhexidine 2% Cloth) 3 pack UNSCH PRN TOP 04/17/17 15:30 (Ramona-Colace) 1 tab BID PO 04/17/17 21:00 04/19/17 07:51 (Milk Of Magnesia Liq) 30 ml Q12H PRN PO 04/17/17 15:30 (Senokot) 17.2 mg Q12H PRN PO 04/17/17 15:30 (Dulcolax Supp) 10 mg DAILY PRN RECTAL 04/17/17 15:30 (Lactulose Liq) 30 ml DAILY PRN PO 04/17/17 15:30 (Synthroid) 50 mcg DAILY@0600 PO 04/17/17 15:30 04/19/17 03:57 (D50w (Vial) Inj) 50 ml UNSCH PRN IV 04/17/17 15:30 (Glucagon Inj) 1 mg UNSCH PRN OTHER 04/17/17 15:30 Insulin Human Regular 1 1 Q4HR SQ 04/17/17 16:00 04/19/17 11:15 Midazolam HCl 100 ml @ 0 mls/hr TITRATE IV 04/17/17 15:30 04/19/17 02:23 Pharmacy Profile Note 0 ml @ 0 mls/hr UNSCH OTHER 04/17/17 15:30 Piperacillin Sod/ Tazobactam Sod 100 ml @ 200 mls/hr Q8H IV 04/17/17 18:00 04/19/17 10:04 Azithromycin 500 mg/Sodium Chloride 250 ml @ 250 mls/hr Q24H IV 04/17/17 17:00 04/18/17 16:01 Vancomycin HCl 1000 mg/Sodium Chloride 250 ml @ 250 mls/hr Q24H IV 04/18/17 13:00 04/19/17 11:22 (Levophed-Dextrose Drip) 250 ml @ 0 mls/hr TITRATE IV 04/17/17 23:00 04/18/17 17:55 Terbutaline Sulfate 1 mg 1 mg UNSCH PRN SQ 04/17/17 23:00 Potassium Chloride 100 ml @ 50 mls/hr Q2H PRN IV 04/18/17 07:30 (KCl 20 Meq Premix Inj) 100 ml @ 50 mls/hr Q2H PRN IV 04/18/17 07:30 Potassium Bicarb/ Potassium Chloride 50 meq 50 meq UNSCH PRN PO 04/18/17 07:30 Potassium Chloride 100 ml @ 25 mls/hr UNSCH PRN IV 04/18/17 07:30 Potassium Chloride 100 ml @ 50 mls/hr Q2H PRN IV 04/18/17 07:30 04/19/17 07:53 (Magnesium Sulfate Inj/NS Inj) 100 ml @ 50 mls/hr UNSCH PRN IV 04/18/17 07:30 Magnesium Oxide 800 mg 800 mg UNSCH PRN PO 04/18/17 07:30 (Magnesium Sulfate Inj/NS Inj) 100 ml @ 50 mls/hr UNSCH PRN IV 04/18/17 07:30 Potassium Phosphate 2000 mg 2,000 mg Q4H PRN PO 04/18/17 07:30 (Sodium Phosphate Inj/NS 250 ml Inj) 250 ml @ 42 mls/hr UNSCH PRN IV 04/18/17 07:30 04/18/17 10:40 Potassium Phosphate 2000 mg 2,000 mg UNSCH PRN PO/TUBE 04/18/17 07:30 Potassium Phosphate 30 mmol/ Sodium Chloride 260 ml @ 42 mls/hr UNSCH PRN IV 04/18/17 07:30 (D5W 1000 ml Inj) 1,000 ml @ 84 mls/hr [id number] IV 04/18/17 07:30 04/19/17 06:36 (Free Water) 250 ml Q8H G-TUBE 04/18/17 08:00 04/19/17 16:00 (SoluCORTEF INJ) 100 mg Q8H IV PUSH 04/18/17 08:00 04/19/17 07:51 (Lactulose Liq) 15 ml BID PO 04/19/17 14:00 04/19/17 14:38 Miscellaneous Information SPECIFIC LAB TO BE SORIN... ONCE ONCE .XX 04/21/17 12:45 04/21/17 12:46 Family History could not be obtained. Social History The patient was lives in a [facility]. No history of alcohol or tobacco use. Physical Exam Vital Signs Vital Signs Date Time Temp Pulse Resp B/P Pulse Ox O2 Delivery O2 Flow Rate FiO2 04/19/17 16:00 35 04/19/17 16:00 98.1 81 16 89/55 98 04/19/17 16:00 81 04/19/17 15:51 98 35 04/19/17 14:00 35 04/19/17 14:00 81 04/19/17 12:06 35 04/19/17 12:06 99 35 04/19/17 12:00 95.5 76 16 102/55 98 04/19/17 12:00 76 04/19/17 10:00 75 04/19/17 08:00 60 04/19/17 08:00 91.7 60 16 158/86 100 04/19/17 08:00 35 04/19/17 07:43 99 35 04/19/17 06:00 59 04/19/17 04:08 100 35 04/19/17 04:00 93.7 66 16 136/74 100 04/19/17 04:00 35 04/19/17 04:00 68 04/19/17 02:00 75 04/19/17 01:39 100 35 04/19/17 00:00 96.6 78 16 117/60 99 04/19/17 00:00 78 04/19/17 00:00 35 04/18/17 22:35 100 35 04/18/17 22:00 87 04/18/17 20:27 98 35 04/18/17 20:00 92 04/18/17 20:00 99.0 92 16 127/63 99 04/18/17 20:00 35 04/18/17 18:00 97 Physical Exam GENERAL: This is a well-nourished, well-developed patient, in no apparent distress. SKIN: No rashes, ecchymoses or lesions. Cool and dry. HEAD: Atraumatic. Normocephalic. No temporal or scalp tenderness. EYES: Pupils equal round and reactive. Extraocular motions intact. No scleral icterus. No injection or drainage. ENT: Intubated. NECK: Trachea midline. Supple, nontender, no meningeal signs. CARDIOVASCULAR: Regular rate and rhythm without murmurs, gallops, or rubs. RESPIRATORY: Clear to auscultation. Breath sounds equal bilaterally. No wheezes , rales, or rhonchi. GASTROINTESTINAL: Abdomen soft, non-tender, nondistended. MUSCULOSKELETAL: Extremities without clubbing, cyanosis, or edema. No joint tenderness, effusion, or edema noted. No calf tenderness. Negative Homans sign bilaterally. NEUROLOGICAL: Off sedation, moving upper body and neck. No meaningful response. Psych: could not be assessed IV line sites with no e.o infection. Laboratory Laboratory Tests Test 04/18/17 04/18/17 04/19/17 04/19/17 17:10 17:30 04:30 13:00 Total Creatine Kinase 70 Troponin I LESS THAN 0.02 Hemoglobin 8.0 8.1 Hematocrit 23.7 24.9 White Blood Count 12.2 Red Blood Count 2.68 Mean Corpuscular Volume 92.7 Mean Corpuscular Hemoglobin 30.2 Mean Corpuscular Hemoglobin 32.6 Concent Red Cell Distribution Width 19.4 Platelet Count 135 Mean Platelet Volume 7.8 Neutrophils (%) (Auto) 85.2 Lymphocytes (%) (Auto) 11.2 Monocytes (%) (Auto) 3.4 Eosinophils (%) (Auto) 0.1 Basophils (%) (Auto) 0.1 Neutrophils # (Auto) 10.4 Lymphocytes # (Auto) 1.4 Monocytes # (Auto) 0.4 Eosinophils # (Auto) 0.0 Basophils # (Auto) 0.0 CBC Comment DIFF FINAL Differential Comment Sodium Level 148 Potassium Level 3.3 Chloride Level 117 Carbon Dioxide Level 20.1 Anion Gap 11 Blood Urea Nitrogen 28 Creatinine 1.50 Estimat Glomerular Filtration 55 Rate Random Glucose 119 Calcium Level 7.3 Protein Corrected Calcium 7.8 Phosphorus Level 3.2 Magnesium Level 2.0 Total Bilirubin 0.2 Aspartate Amino Transf 110 (AST/SGOT) Alanine Aminotransferase 108 (ALT/SGPT) Alkaline Phosphatase 173 Total Protein 6.2 Albumin 2.0 Phenytoin (Dilantin) Level 18.0 Vancomycin Level Trough 12.7 Test 04/19/17 04/19/17 13:03 13:40 Blood Gas Puncture Site RT RADIAL Blood Gas Patient Temperature 98.6 Blood Gas HCO3 19 Blood Gas Base Excess -5.4 Blood Gas Oxygen Saturation 97 Arterial Blood pH 7.39 Arterial Blood Partial 31 Pressure CO2 Arterial Blood Partial 174 Pressure O2 Arterial Blood Oxygen Content 11.5 Arterial Blood 1.2 Carboxyhemoglobin Arterial Blood Methemoglobin 1.2 Blood Gas Hemoglobin 8.2 Oxygen Delivery Device VENTILATOR Blood Gas Ventilator Setting CPAP PS10/PEEP5 Blood Gas Inspired Oxygen 35 Ammonia 27 Date/Time Procedure Status Source Growth 04/17/17 12:25 Urine Culture - Final Complete Urine Catheterized Urine NO GROWTH IN 48 HOURS. 04/17/17 12:25 Legionella Antigen - Final Complete Urine Catheterized Urine PRESUMPTIVE NEGATIVE FOR LEGIONELLA P... 04/17/17 12:25 Streptococcus pneumoniae Antigen (M - Final Complete Urine Catheterized Urine PRESUMPTIVE NEGATIVE FOR STREPTOCOCCU... 04/17/17 12:20 Aerobic Blood Culture - Preliminary Resulted Blood Peripheral NO GROWTH IN 2 DAYS 04/17/17 12:20 Anaerobic Blood Culture - Preliminary Resulted Blood Peripheral NO GROWTH IN 2 DAYS Result Diagram: 04/19/17 0430 04/19/17 0430 Imaging Last Impressions Chest X-Ray 04/18/17 0000 Signed Impressions: Service Date/Time: Tuesday, April 18, 2017 04:03 - CONCLUSION: No significant change Boubacar Pearl MD Head CT 04/17/17 1212 Signed Impressions: Service Date/Time: Monday, April 17, 2017 14:38 - CONCLUSION: Slight atrophic and small vessel ischemic changes without any evidence for acute hemorrhage or mass effect. Omer Urena MD Abdomen Ultrasound 04/17/17 0000 Signed Impressions: Service Date/Time: Monday, April 17, 2017 15:56 - CONCLUSION: 1. Nonvisualization of the common bile duct, pancreas and spleen. 2. Simple cyst left kidney. Dariusz Louis MD Assessment and Plan Assessment and Plan Possible Sepsis now (hypothermia, leucocytosis, hypotension). Hypothermia: hypothyroidism, infection Acute metabolic encephalopathy: infection, metabolic, hypothyroidism Acute respiratory failure on vent. Possible HCAP, aspiration pneumonia on admission Acute renal failure: was on Bactrim as outpt plus ? prerenal and sepsis. H/o seizures Recs: Continue Azithro IV Continue Zosyn IV Continue Vanco IV (target trough 15-20) for Pneumonia. Check sputum cultures Follow cultures Follow clinically. Reviewed imaging. Consider MRI and LP if altered mental status persists. Continue Sedation vacation per critical care. Agree with Neurology consult. norman Bai RN for pt. No family in room. Consider Palliative care consult to contact family and address goals of therapy. Possible need for trach and PEG if pt does not improve mentation rivera. Sana Kumar MD Apr 19, 2017 16:52
--- NOTE | 2017-04-19 17:49 | RADRPT ---
EXAM DATE/TIME: 04/19/2017 17:16 [facility] COMPARISON: CT ABDOMEN & PELVIS W/O CONTRAST, June 14, 2016, 9:59. INDICATIONS : Evaluate for sepsis, elevated LFTs. ORAL CONTRAST: Prescribed oral contrast ingested. RADIATION DOSE: 5.74 CTDIvol (mGy) MEDICAL HISTORY : Hypertension. Diabetes mellitus type 1. Seizures. A-fib SURGICAL HISTORY : None. ENCOUNTER: Initial ACUITY: 1 day PAIN SCALE: Non-responsive LOCATION: Abdomen TECHNIQUE: Volumetric scanning of the abdomen and pelvis was performed. Using automated exposure control and ad justment of the mA and/or kV according to patient size, radiation dose was kept as low as reasonably achievable to obtain optimal diagnostic quality images. DICOM format image data is available electro nically for review and comparison. FINDINGS: Tiny bilateral pleural effusions are noted. Bibasilar patchy opacities are noted posteriorly consist ent with atelectasis and/or infiltrates. The heart is enlarged. Coronary artery calcifications are noted. Evaluation of the solid organs of the abdomen is limited by the lack of intravenous contrast. A nasogastric tube has its tip in the proximal duodenum. There is a stable left renal cyst. There is no acute obstructive uropathy. No acute inflammatory changes are noted within the abdomen or pelv is. Degenerative changes and scoliosis of the thoracolumbar spine are noted. CONCLUSION: 1. Tiny bilateral pleural effusions with adjacent patchy infiltrates consistent with atelectasis and/ or pneumonia. Clinical correlation is recommended. 2. No acute intraabdominal process. 3. Cardiomegaly and coronary artery calcifications. 4. Degenerative changes and scoliosis of the thoracolumbar spine. Rolando Rowe MD on April 19, 2017 at 17:37 Board Certified Radiologist. This report was verified electronically.
--- NOTE | 2017-04-19 17:53 | RADRPT ---
EXAM DATE/TIME: 04/19/2017 17:19 [facility] COMPARISON: CT THORAX W/O CONTRAST, June 14, 2016, 9:59. INDICATIONS : Evaluate for sepsis, elevated LFTs. RADIATION DOSE: 5.74 CTDIvol (mGy) MEDICAL HISTORY : Hypertension. Diabetes mellitus type 1. Seizures. A-fib SURGICAL HISTORY : None. ENCOUNTER: Initial ACUITY: 1 day PAIN SCALE: Non-responsive LOCATION: Chest TECHNIQUE: Volumetric scanning of the chest was performed. Using automated exposure control and adjustment of t he mA and/or kV according to patient size, radiation dose was kept as low as reasonably achievable to obtain optimal diagnostic quality images. DICOM format image data is available electronically for r eview and comparison. Follow-up recommendations for incidentally detected pulmonary nodules are based at a minimum on nodul e size and patient risk factors according to Fleischner Society Guidelines. FINDINGS: Tiny bilateral pleural effusions are noted. Patchy opacities are noted within the posterior lung bas es consistent with atelectasis and/or mild infiltrates. Clinical correlation is recommended. The hear t is enlarged. Coronary artery calcifications are noted. No mediastinal, hilar, or axillary lymphade nopathy is noted. A nasogastric tube has its tip in the proximal duodenum. No pulmonary nodule or m ass is noted. Degenerative changes and scoliosis of the thoracic spine are noted. CONCLUSION: 1. Posterior bibasilar patchy opacities consistent with atelectasis and/or mild infiltrates. Clinica l correlation is recommended. 2. Tiny bilateral pleural effusions. 3. Cardiomegaly and coronary artery calcifications. 4. Degenerative changes and scoliosis of the thoracic spine. Rolando Rowe MD on April 19, 2017 at 17:46 Board Certified Radiologist. This report was verified electronically.
[2017-04-19] MEDS: AZITHROMYCIN INJ 500 MG in SODIUM CHLOR 0.9% 250 ML INJ 250 ML IV SCH (17:55)
[2017-04-19] MEDS: PHENYTOIN INJ 100 MG/2 ML VIAL IV SCH (20:47)
[2017-04-20] VITALS (32 sets, daily range): BP systolic 93–153; BP diastolic 54–73; PULSE 68–108; RESP 16–20; TEMP 96.5–100; O2SAT 96–100
[2017-04-20] MEDS: FREE WATER G-TUBE SCH ×4 (00:41→23:58)
[2017-04-20] MEDS: INSULIN NovoLIN REGULAR SUPPLEMENTAL SCALE SQ SCH ×6 (00:41→20:00)
[2017-04-20] MEDS: HYDROCORTISONE SOD SUCCINATE 100 MG VIAL IV PUSH SCH ×4 (00:41→23:59)
[2017-04-20] MEDS: MIDAZOLAM 100 MG/ML INJ 100 ML IV SCH (02:08)
[2017-04-20] MEDS: PIPERACIL-TAZO 4.5 GM PREMIX 100 ML IV SCH ×2 (02:08→09:22)
[2017-04-20] MEDS: RESP: ALBUTEROL 2.5 MG/IPRATROPIUM 0.5 MG NEB (SCH) INH ×4 (03:21→21:20)
[2017-04-20] MEDS: CHLORHEXIDINE GLUCONATE 2 % 1 PACK (2 CLOTHS) TOP SCH (04:00)
[2017-04-20 04:05] LABS: AUTOMATED NEUTROPHIL # 7.9 TH/MM3 (1.8-7.7); BASOPHIL % 0.1 % (0.0-2.0); HEMATOCRIT 22.5 % (39.0-51.0); HEMO FLAGS DIFF FINAL; LYMPH % 10.6 % (9.0-44.0); MEAN CELL VOLUME 91.5 FL (80.0-100.0); MEAN CORPUSCULAR HEMOGLOBIN 30.9 PG (27.0-34.0); MEAN CORPUSCULAR HGB CONC 33.8 % (32.0-36.0); MONO % 4.3 % (0.0-8.0); PLATELET COUNT 120 TH/MM3 (150-450); RED BLOOD COUNT 2.46 MIL/MM3 (4.50-5.90); RED CELL DISTRIBUTION WIDTH 19.2 % (11.6-17.2); WHITE BLOOD COUNT 9.4 TH/MM3 (4.0-11.0)
[2017-04-20 04:30] LABS: BICARBONATE 22.5 MEQ/L (21.0-32.0); CALCIUM-PROTEIN CORRECTED 8.1 MG/DL (8.5-10.1); TOTAL BILIRUBIN ADULT 0.2 MG/DL (0.2-1.0)
[2017-04-20] MEDS: HEPARIN SODIUM - SQ 10,000 UNITS/ML VIAL SQ SCH ×2 (05:05→15:25)
[2017-04-20] MEDS: PHENYTOIN INJ 100 MG/2 ML VIAL IV SCH ×3 (05:06→23:58)
[2017-04-20] MEDS: LEVOTHYROXINE SODIUM 50 MCG TAB PO SCH (05:06)
[2017-04-20] MEDS: DEXTROSE 5% IN WATE 1000ML INJ 1,000 ML IV SCH ×2 (05:06→18:13)
--- NOTE | 2017-04-20 06:47 | MB ---
cc: ZULY SALDAÑA M.D. DATE OF CONSULTATION 04/19/2017 REASON FOR CONSULTATION He is a 76-year-old seen in neurological consultation. He came in on 04/17 with altered mental status. HISTORY OF PRESENT ILLNESS It appears that he lives in a senior living and has a history of dementia, diabetes, seizures and atrial fibrillation. The patient takes Dilantin and the level initially was 28.4, today's level is down to 18. He also takes valproic acid and the initial level was 26. He was intubated in the emergency room because of his altered mental status. PAST MEDICAL HISTORY The patient is not providing any information. His medical history also appears to include schizophrenia. NEUROLOGICAL EXAMINATION The exam shows the patient to be quiet, awake-looking. Did not establish much of eye contact. He would not follow simple commands. He responded to visual threat but only upon being very close to his eyes. He seemed to be moving very minimally the extremities upon stimulation. His reflexes were absent and there is mild edema of the extremities. Plantar responses none versus flexor. IMAGING STUDIES The CT brain showed no acute abnormality. ASSESSMENT 1. Encephalopathy, acute and chronic. 2. History of seizures. 3. Dilantin toxicity. 4. Dementia. 5. Acutely he is probably septic to explain his constellation of symptoms. RECOMMENDATIONS Depending upon the clinical course, we will consider MRI brain. If an EEG has not been requested, I am going to request one. It is my understanding that Infectious Disease is already involved in his care. I think we can resume the Dilantin at this point. Thank you for asking us to assist in his care. MD JUAN JOSÉ Wells/FÁTIMA /5:40 PM /6:46 AM
--- NOTE | 2017-04-20 07:49 | MG ---
cc: NEFTALI OLIVER MD Lab No: [id number] Date: 04/19/2017 Age: 76 Sex: M Race: __ DATE OF 1940 INDICATIONS A 76-year-old with a history of a mood disorder. DESCRIPTION 1-3 Hz delta activity. Occasional theta occurring 10-30 microvolts, FP1 appears to be about an EEG lead. No driving with photic stimulation. Minimal EEG variability reactivity. Tiny phase reversal T4 epoch 109, rhythmic delta activity occurring in the right temporal region. Single lead EKG showing sinus rhythm with premature contractions in addition to some possible episodes of irregularity. INTERPRETATION Moderate to severe encephalopathy. No active seizures. Clinical correlation. MD MARIE Juan/DJL /8:47 PM /7:47 AM
[2017-04-20] MEDS: PANTOPRAZOLE SODIUM 40 MG VIAL IV SCH ×2 (08:34→20:43)
[2017-04-20] MEDS: LACTULOSE SYRUP 20 GM/30 ML CUP PO SCH ×2 (08:34→20:42)
[2017-04-20] MEDS: DOCUSATE SODIUM 50 MG/SENNA 8.6 MG TAB PO SCH ×2 (08:35→20:42)
--- NOTE | 2017-04-20 09:00 | HHI.CCPN ---
Subjective Remarks/Hospital Course The patient is a 76[place] [place] with a past medical history of hypothyroidism, hypertension, diabetes mellitus, dementia, seizure disorder, atrial fibrillation on Pradaxa who presented to the [facility] Department for confusion and altered mental status. The patient was also found hypothermic with a temperature of 88.9 rectally. His laboratory data showed acute kidney injury with creatinine level 1.37 and hyperkalemia with a potassium level 6.0. His lactic acid level measured at 0.8. In addition, he was found to have elevated liver enzymes with AST 177, ALT 168 and total bilirubin less than 0.1. Due to altered mental status, the patient was intubated with etomidate, vecuronium and placed on full mechanical ventilation. CT scan of the brain obtained in the emergency department showed slight atrophic and small vessel ischemic changes without any evidence for acute hemorrhage or mass effect. Chest x-ray post intubation showed right upper lobe and left lower lobe densities and adequate placement of the ET tube. In the emergency room, the patient was given approximately 1.5 liters of crystalloids in addition to vancomycin and Zosyn for possible aspiration pneumonia. Other significant labs showed a TSH of 11.0 and a random cortisol level of 9.7. He was also be given Decadron 10 mg IV push. ABG post-intubation showed a pH of 7.43, CO2 38, pAO2 186, bicarb 25, saturation 98% on assist control ventilation with a rate of 16, tidal volume 500, PEEP of 5 and FIO2 of 50%. When seen in the emergency room, he was sedated with Versed. 04/18 Patient is intubated and sedated with Versed 5mg started on Levophed 4 mics overnight. Hgb 6.8 this morning. 04/19 Patient remains intubated with versed. Off Levophed. s/p transfusion 1unit PRBC yesterday. 04/20 Patient is off Levophed,on Versed 2mg/hr. Tmax 100.4 Objective Vital Signs Date Time Temp Pulse Resp B/P Pulse Ox O2 Delivery O2 Flow Rate FiO2 04/20/17 06:00 93 04/20/17 04:11 98 35 04/20/17 04:00 100.0 16 96/55 04/17/17 17:00 Ventilator 04/17/17 14:00 2 Intake and Output 04/19/17 04/19/17 04/20/17 08:00 16:00 00:00 Intake Total 1159 ml 1717 ml 1057 ml Output Total 350 ml 700 ml 1000 ml Balance 809 ml 1017 ml 57 ml Result Diagram: 04/20/17 0320 04/20/17 0320 Other Results Laboratory Tests Test 04/19/17 04/19/17 04/19/17 04/20/17 13:00 13:03 13:40 03:20 Vancomycin Level Trough 12.7 MCG/ML Blood Gas Puncture Site RT RADIAL Blood Gas Patient Temperature 98.6 Blood Gas HCO3 19 mmol/L Blood Gas Base Excess -5.4 mmol/L Blood Gas Oxygen Saturation 97 % Arterial Blood pH 7.39 Arterial Blood Partial 31 mmHg Pressure CO2 Arterial Blood Partial 174 mmHg Pressure O2 Arterial Blood Oxygen Content 11.5 Vol % Arterial Blood 1.2 % Carboxyhemoglobin Arterial Blood Methemoglobin 1.2 % Blood Gas Hemoglobin 8.2 G/DL Oxygen Delivery Device VENTILATOR Blood Gas Ventilator Setting CPAP PS10/PEEP5 Blood Gas Inspired Oxygen 35 % Ammonia 27 MCMOL/L White Blood Count 9.4 TH/MM3 Red Blood Count 2.46 MIL/MM3 Hemoglobin 7.6 GM/DL Hematocrit 22.5 % Mean Corpuscular Volume 91.5 FL Mean Corpuscular Hemoglobin 30.9 PG Mean Corpuscular Hemoglobin 33.8 % Concent Red Cell Distribution Width 19.2 % Platelet Count 120 TH/MM3 Mean Platelet Volume 7.8 FL Neutrophils (%) (Auto) 85.0 % Lymphocytes (%) (Auto) 10.6 % Monocytes (%) (Auto) 4.3 % Eosinophils (%) (Auto) 0.0 % Basophils (%) (Auto) 0.1 % Neutrophils # (Auto) 7.9 TH/MM3 Lymphocytes # (Auto) 1.0 TH/MM3 Monocytes # (Auto) 0.4 TH/MM3 Eosinophils # (Auto) 0.0 TH/MM3 Basophils # (Auto) 0.0 TH/MM3 CBC Comment DIFF FINAL Differential Comment Sodium Level 146 MEQ/L Potassium Level 4.0 MEQ/L Chloride Level 115 MEQ/L Carbon Dioxide Level 22.5 MEQ/L Anion Gap 9 MEQ/L Blood Urea Nitrogen 24 MG/DL Creatinine 1.41 MG/DL Estimat Glomerular Filtration 59 ML/MIN Rate Random Glucose 126 MG/DL Calcium Level 7.4 MG/DL Protein Corrected Calcium 8.1 MG/DL Phosphorus Level 2.5 MG/DL Magnesium Level 2.0 MG/DL Total Bilirubin 0.2 MG/DL Aspartate Amino Transf 121 U/L (AST/SGOT) Alanine Aminotransferase 111 U/L (ALT/SGPT) Alkaline Phosphatase 157 U/L Total Protein 5.9 GM/DL Albumin 2.0 GM/DL Imaging Last Impressions Chest CT 04/19/17 0000 Signed Impressions: Service Date/Time: Wednesday, April 19, 2017 17:19 - CONCLUSION: 1. Posterior bibasilar patchy opacities consistent with atelectasis and/or mild infiltrates. Clinical correlation is recommended. 2. Tiny bilateral pleural effusions. 3. Cardiomegaly and coronary artery calcifications. 4. Degenerative changes and scoliosis of the thoracic spine. Rolando Rowe MD Abdomen/Pelvis CT 04/19/17 0000 Signed Impressions: Service Date/Time: Wednesday, April 19, 2017 17:16 - CONCLUSION: 1. Tiny bilateral pleural effusions with adjacent patchy infiltrates consistent with atelectasis and/or pneumonia. Clinical correlation is recommended. 2. No acute intraabdominal process. 3. Cardiomegaly and coronary artery calcifications. 4. Degenerative changes and scoliosis of the thoracolumbar spine. Rolando Rowe MD Chest X-Ray 04/18/17 0000 Signed Impressions: Service Date/Time: Tuesday, April 18, 2017 04:03 - CONCLUSION: No significant change Boubacar Pearl MD Head CT 04/17/17 1212 Signed Impressions: Service Date/Time: Monday, April 17, 2017 14:38 - CONCLUSION: Slight atrophic and small vessel ischemic changes without any evidence for acute hemorrhage or mass effect. Omer Urena MD Abdomen Ultrasound 04/17/17 0000 Signed Impressions: Service Date/Time: Monday, April 17, 2017 15:56 - CONCLUSION: 1. Nonvisualization of the common bile duct, pancreas and spleen. 2. Simple cyst left kidney. Dariusz Louis MD Objective Remarks GENERAL: Patient is 76 yo intubated and sedated SKIN: Warm and dry. HEAD: Normocephalic. EYES: No scleral icterus. No injection or drainage. NECK: Supple, trachea midline. No JVD or lymphadenopathy. CARDIOVASCULAR: Regular rate and rhythm without murmurs, gallops, or rubs. RESPIRATORY: Breath sounds equal bilaterally. No accessory muscle use. GASTROINTESTINAL: Abdomen soft, non-tender, nondistended. MUSCULOSKELETAL: No cyanosis, or edema. Neuro: Sedated A/P Assessment and Plan 1. VDRF 2. Aspiration pneumonia. 3. Acute kidney injury. 4. s/p Hyperkalemia. 5. Elevated liver enzymes. 6. History of atrial fibrillation on Pradaxa. 7. Diabetes mellitus. 8. Hypertension. 9. Anemia. 10. Hypothyroidism. 11. History of dementia and seizure disorder. Plan: Neuro: On Versed infusion for sedation, daily sedation vacation. Monitor neuro status CT brain in the ER showed no evidence of any acute hemorrhage or mass effect. Dilantin level: 18 04/19 EEG 04/19- mod- severe encephalopathy- Neuro is following- if no improvements in mental status t/c MRI brain Pulm: Continue with vent support and maintain sats above 92%. Bronchodilators, ICU vent bundle. SBT trials as lobo. CT chest: Posterior bibasilar patchy opacities consistent with atelectasis and/or mild infiltrates. CV: Monitor HR and BP keep MAP>65mmHg Lactic acid level measured at 0.8. Continue with IVF On stress dose steroids- HC 100mg IV Q8 : Monitor renal function, intake and output and avoid nephrotoxins. Cr: 1.41 today from 1.50 with UOP:2900 ml in 24 hrs , IVF D5W@84ml/hr, Free water 250ml Q8, monitor sodium level. GI: Monitor LFT's, follow up on Hepatitis profile. US abdomen: Nonvisualization of the common bile duct, pancreas and spleen. Simple cyst left kidney Normal liver, no gallstones. 04/19 CT abdomen/pelvis: No acute abd process. on Protonix 40mg IV daily for GI prophylaxis. On tube feeds-- Glucerna 1.5 @45ml/hr Consult GI for anemia/ drop in H/H might need EGD ID: Given Vancomycin and Zosyn in ED. ID is following. Continue with Vanco, Zosyn, Azithromycin. Monitor for signs of infections ( Fever, WBC) Strep pneumoniae and Legionella urinary antigen negative. 04/17 Blood cx, urine cx: NGTD Endo: SSI with Accu-Chek q. 4 hours for glycemic control. On Synthroid 50 mcg daily. 04/17 TSH level: 11.0. FT4:0.69(L), FT3 level: 1.67(L) Recheck thyroid panel in am. Random cortisol level measured 9.7. On Sterids- HC 100mg IV Q8 Heme: Monitor CBC s/p transfusion 1unit PRBC on 04/18 Check Hemoccult stool, GI eval. DVT prophylaxis with SCDs, heparin SQ on hold given anemia requiring blood transfusion GI prophylaxis- On Protonix 40mg IV BID Lines: Left subclavian CVP placed 04/18 Palliative care eval to asses with goals of care CCT 30 mins Jennifer Restrepo MD Apr 20, 2017 09:00
[2017-04-20] MEDS ORDERED: CALCIUM GLUCONATE INJ 1 GM in SODIUM CHLORIDE 0.9% INJ 100 ML IV ONE (10:00)
--- NOTE | 2017-04-20 11:08 | PD.CONS ---
HPI History of Present Illness This is a 76 year old residential resident with a past medical history of hypothyroidism, hypertension, diabetes mellitus, dementia, seizure disorder, atrial fibrillation on Pradaxa who presented to the [facility] Emergency Department for confusion and altered mental status. On initial assessment patient was found hypothermic with a temperature of 88.9 rectally. Labs revealed, acute kidney injury, elevated LFTs, AST 177, ALT 168, ALP 221, hgb of 9.5 ---->6.8. GI consulted for anemia. He received one unit of blood, today hg is 7.6. No obvious bleeding reported by nurse. Currently patient is ventilated, there fore, HPI was obtained from EMR and nurse. Patient has hx of chronic anemia, no EGD/colonoscopy in chart. CT of abd/pelvis on (04/19/17) 1. Tiny bilateral pleural effusions with adjacent patchy infiltrates consistent with atelectasis and/or pneumonia. Clinical correlation is recommended. 2. No acute intraabdominal process. 3. Cardiomegaly and coronary artery calcifications. 4. Degenerative changes and scoliosis of the thoracolumbar spine. US on (04/17/17)---> Nonvisualization of the common bile duct, pancreas and spleen. 2. Simple cyst left kidney. He was receiving TF through OGT and tolerating well, currently on hold for possible extubation. 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) 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 - 06/13/16, 04/17/17 Medications Current Medications Medications (Trade) Dose Ordered Sig/Miquel Route Start Time Stop Time Status Last Admin (NS Flush) 2 ml UNSCH PRN IV FLUSH 04/17/17 12:15 04/17/17 15:06 (Heparin Inj) 5,000 units Q12H SQ 04/17/17 15:30 04/20/17 05:05 Miscellaneous Information 1 Q361D XX 04/17/17 15:30 (Chlorhexidine 2% Cloth) 3 pack Taper DAILY@04 TOP 04/18/17 04:00 04/14/18 03:59 04/20/17 04:00 (Chlorhexidine 2% Cloth) 3 pack UNSCH PRN TOP 04/17/17 15:30 (Ramona-Colace) 1 tab BID PO 04/17/17 21:00 04/20/17 08:35 (Milk Of Magnesia Liq) 30 ml Q12H PRN PO 04/17/17 15:30 (Senokot) 17.2 mg Q12H PRN PO 04/17/17 15:30 (Dulcolax Supp) 10 mg DAILY PRN RECTAL 04/17/17 15:30 (Lactulose Liq) 30 ml DAILY PRN PO 04/17/17 15:30 (Synthroid) 50 mcg DAILY@0600 PO 04/17/17 15:30 04/20/17 05:06 (D50w (Vial) Inj) 50 ml UNSCH PRN IV 04/17/17 15:30 (Glucagon Inj) 1 mg UNSCH PRN OTHER 04/17/17 15:30 Insulin Human Regular 1 1 Q4HR SQ 04/17/17 16:00 04/20/17 08:00 Midazolam HCl 100 ml @ 0 mls/hr TITRATE IV 04/17/17 15:30 04/20/17 02:08 Pharmacy Profile Note 0 ml @ 0 mls/hr UNSCH OTHER 04/17/17 15:30 Piperacillin Sod/ Tazobactam Sod 100 ml @ 200 mls/hr Q8H IV 04/17/17 18:00 04/20/17 09:22 Azithromycin 500 mg/Sodium Chloride 250 ml @ 250 mls/hr Q24H IV 04/17/17 17:00 04/19/17 17:55 Vancomycin HCl 1000 mg/Sodium Chloride 250 ml @ 250 mls/hr Q24H IV 04/18/17 13:00 04/19/17 11:22 (Levophed-Dextrose Drip) 250 ml @ 0 mls/hr TITRATE IV 04/17/17 23:00 04/18/17 17:55 Terbutaline Sulfate 1 mg 1 mg UNSCH PRN SQ 04/17/17 23:00 Potassium Chloride 100 ml @ 50 mls/hr Q2H PRN IV 04/18/17 07:30 (KCl 20 Meq Premix Inj) 100 ml @ 50 mls/hr Q2H PRN IV 04/18/17 07:30 Potassium Bicarb/ Potassium Chloride 50 meq 50 meq UNSCH PRN PO 04/18/17 07:30 Potassium Chloride 100 ml @ 25 mls/hr UNSCH PRN IV 04/18/17 07:30 Potassium Chloride 100 ml @ 50 mls/hr Q2H PRN IV 04/18/17 07:30 04/19/17 07:53 (Magnesium Sulfate Inj/NS Inj) 100 ml @ 50 mls/hr UNSCH PRN IV 04/18/17 07:30 Magnesium Oxide 800 mg 800 mg UNSCH PRN PO 04/18/17 07:30 (Magnesium Sulfate Inj/NS Inj) 100 ml @ 50 mls/hr UNSCH PRN IV 04/18/17 07:30 Potassium Phosphate 2000 mg 2,000 mg Q4H PRN PO 04/18/17 07:30 (Sodium Phosphate Inj/NS 250 ml Inj) 250 ml @ 42 mls/hr UNSCH PRN IV 04/18/17 07:30 04/18/17 10:40 Potassium Phosphate 2000 mg 2,000 mg UNSCH PRN PO/TUBE 04/18/17 07:30 Potassium Phosphate 30 mmol/ Sodium Chloride 260 ml @ 42 mls/hr UNSCH PRN IV 04/18/17 07:30 (D5W 1000 ml Inj) 1,000 ml @ 84 mls/hr [id number] IV 04/18/17 07:30 04/20/17 05:06 (Free Water) 250 ml Q8H G-TUBE 04/18/17 08:00 04/20/17 08:00 (SoluCORTEF INJ) 100 mg Q8H IV PUSH 04/18/17 08:00 04/20/17 08:34 (Lactulose Liq) 15 ml BID PO 04/19/17 14:00 04/20/17 08:34 Miscellaneous Information SPECIFIC LAB TO BE SORIN... ONCE ONCE .XX 04/21/17 12:45 04/21/17 12:46 (Dilantin Inj) 100 mg Q8HR IV 04/19/17 22:00 04/20/17 05:06 Pantoprazole Sodium 40 mg 40 mg BID IV 04/20/17 21:00 (Calcium Gluconate Inj/NS Inj) 110 ml @ 110 mls/hr ONCE ONCE IV 04/20/17 10:00 04/20/17 10:59 04/20/17 10:25 Family History Un able to obtain Social History Un able to obtain (Cory Duque) Review of Systems ROS Unable to obtain, patient is sedated on a vent (Cory Duque) GI Exam Vitals I&O Vital Signs Date Time Temp Pulse Resp B/P Pulse Ox O2 Delivery O2 Flow Rate FiO2 04/20/17 09:18 100 35 04/20/17 09:13 96 35 04/20/17 06:00 93 04/20/17 04:11 98 35 04/20/17 04:00 100 04/20/17 04:00 35 04/20/17 04:00 100.0 108 16 96/55 98 04/20/17 03:30 100.4 101 16 109/55 98 04/20/17 03:00 100.2 100 16 116/61 98 04/20/17 02:30 100.0 100 16 114/60 98 04/20/17 02:00 92 04/20/17 02:00 99.9 100 16 109/55 97 04/20/17 01:30 99.9 101 16 111/56 97 04/20/17 01:13 97 35 04/20/17 01:00 99.7 100 16 106/56 97 04/20/17 01:00 99.7 100 16 106/56 97 04/20/17 00:30 99.5 97 16 106/58 97 04/20/17 00:00 35 04/20/17 00:00 99.7 95 16 93/54 97 04/20/17 00:00 93 04/19/17 23:30 99.5 96 16 102/55 97 04/19/17 23:00 99.3 91 16 95/54 98 04/19/17 22:30 99.1 89 16 95/51 98 04/19/17 22:00 90 04/19/17 22:00 99.0 87 16 96/51 98 04/19/17 21:30 98.8 90 16 96/53 98 04/19/17 21:00 98.4 92 16 100/56 98 04/19/17 20:30 98.2 92 16 96/53 99 04/19/17 20:00 98.1 87 16 98/56 98 04/19/17 20:00 35 04/19/17 20:00 85 04/19/17 19:57 98 35 04/19/17 18:00 86 04/19/17 17:39 99 100 04/19/17 16:00 35 04/19/17 16:00 98.1 81 16 89/55 98 04/19/17 16:00 81 04/19/17 15:51 98 35 04/19/17 14:00 35 04/19/17 14:00 81 04/19/17 12:06 35 04/19/17 12:06 99 35 04/19/17 12:00 95.5 76 16 102/55 98 04/19/17 12:00 76 I/O 04/19/17 04/19/17 04/19/17 04/20/17 04/20/17 04/20/17 07:00 15:00 23:00 07:00 15:00 23:00 Intake Total 1159 ml 1717 ml 1057 ml 1425 ml Output Total 350 ml 700 ml 1000 ml 1200 ml Balance 809 ml 1017 ml 57 ml 225 ml Intake Oral 0 ml 0 ml IV Total 724 ml 1108 ml 757 ml 735 ml Tube Feeding 235 ml 359 ml 200 ml 290 ml Other 200 ml 250 ml 100 ml 400 ml Output Urine Total 350 ml 700 ml 1000 ml 1200 ml Gastric Drainage Total 0 ml # Bowel Movements 1 0 0 Imaging Last Impressions Chest CT 04/19/17 0000 Signed Impressions: Service Date/Time: Wednesday, April 19, 2017 17:19 - CONCLUSION: 1. Posterior bibasilar patchy opacities consistent with atelectasis and/or mild infiltrates. Clinical correlation is recommended. 2. Tiny bilateral pleural effusions. 3. Cardiomegaly and coronary artery calcifications. 4. Degenerative changes and scoliosis of the thoracic spine. Rolando Rowe MD Abdomen/Pelvis CT 04/19/17 0000 Signed Impressions: Service Date/Time: Wednesday, April 19, 2017 17:16 - CONCLUSION: 1. Tiny bilateral pleural effusions with adjacent patchy infiltrates consistent with atelectasis and/or pneumonia. Clinical correlation is recommended. 2. No acute intraabdominal process. 3. Cardiomegaly and coronary artery calcifications. 4. Degenerative changes and scoliosis of the thoracolumbar spine. Rolando Rowe MD Chest X-Ray 04/18/17 0000 Signed Impressions: Service Date/Time: Tuesday, April 18, 2017 04:03 - CONCLUSION: No significant change Boubacar Pearl MD Head CT 04/17/17 1212 Signed Impressions: Service Date/Time: Monday, April 17, 2017 14:38 - CONCLUSION: Slight atrophic and small vessel ischemic changes without any evidence for acute hemorrhage or mass effect. Omer Urena MD Abdomen Ultrasound 04/17/17 0000 Signed Impressions: Service Date/Time: Monday, April 17, 2017 15:56 - CONCLUSION: 1. Nonvisualization of the common bile duct, pancreas and spleen. 2. Simple cyst left kidney. Dariusz Louis MD Laboratory Test 04/19/17 04/19/17 04/19/17 04/20/17 13:00 13:03 13:40 03:20 Vancomycin Level Trough 12.7 MCG/ML Blood Gas Puncture Site RT RADIAL Blood Gas Patient Temperature 98.6 Blood Gas HCO3 19 mmol/L Blood Gas Base Excess -5.4 mmol/L Blood Gas Oxygen Saturation 97 % Arterial Blood pH 7.39 Arterial Blood Partial 31 mmHg Pressure CO2 Arterial Blood Partial 174 mmHg Pressure O2 Arterial Blood Oxygen Content 11.5 Vol % Arterial Blood 1.2 % Carboxyhemoglobin Arterial Blood Methemoglobin 1.2 % Blood Gas Hemoglobin 8.2 G/DL Oxygen Delivery Device VENTILATOR Blood Gas Ventilator Setting CPAP PS10/PEEP5 Blood Gas Inspired Oxygen 35 % Ammonia 27 MCMOL/L White Blood Count 9.4 TH/MM3 Red Blood Count 2.46 MIL/MM3 Hemoglobin 7.6 GM/DL Hematocrit 22.5 % Mean Corpuscular Volume 91.5 FL Mean Corpuscular Hemoglobin 30.9 PG Mean Corpuscular Hemoglobin 33.8 % Concent Red Cell Distribution Width 19.2 % Platelet Count 120 TH/MM3 Mean Platelet Volume 7.8 FL Neutrophils (%) (Auto) 85.0 % Lymphocytes (%) (Auto) 10.6 % Monocytes (%) (Auto) 4.3 % Eosinophils (%) (Auto) 0.0 % Basophils (%) (Auto) 0.1 % Neutrophils # (Auto) 7.9 TH/MM3 Lymphocytes # (Auto) 1.0 TH/MM3 Monocytes # (Auto) 0.4 TH/MM3 Eosinophils # (Auto) 0.0 TH/MM3 Basophils # (Auto) 0.0 TH/MM3 CBC Comment DIFF FINAL Differential Comment Sodium Level 146 MEQ/L Potassium Level 4.0 MEQ/L Chloride Level 115 MEQ/L Carbon Dioxide Level 22.5 MEQ/L Anion Gap 9 MEQ/L Blood Urea Nitrogen 24 MG/DL Creatinine 1.41 MG/DL Estimat Glomerular Filtration 59 ML/MIN Rate Random Glucose 126 MG/DL Calcium Level 7.4 MG/DL Protein Corrected Calcium 8.1 MG/DL Phosphorus Level 2.5 MG/DL Magnesium Level 2.0 MG/DL Total Bilirubin 0.2 MG/DL Aspartate Amino Transf 121 U/L (AST/SGOT) Alanine Aminotransferase 111 U/L (ALT/SGPT) Alkaline Phosphatase 157 U/L Total Protein 5.9 GM/DL Albumin 2.0 GM/DL Date/Time Procedure Status Source Growth 04/17/17 12:25 Urine Culture - Final Complete Urine Catheterized Urine NO GROWTH IN 48 HOURS. 04/17/17 12:25 Legionella Antigen - Final Complete Urine Catheterized Urine PRESUMPTIVE NEGATIVE FOR LEGIONELLA P... 04/17/17 12:25 Streptococcus pneumoniae Antigen (M - Final Complete Urine Catheterized Urine PRESUMPTIVE NEGATIVE FOR STREPTOCOCCU... 04/17/17 12:20 Aerobic Blood Culture - Preliminary Resulted Blood Peripheral NO GROWTH IN 2 DAYS 04/17/17 12:20 Anaerobic Blood Culture - Preliminary Resulted Blood Peripheral NO GROWTH IN 2 DAYS Physical Examination HEENT: normocephalic; atraumatic; no jaundice. NECK: Neck is supple, no JVD, no lymphadenopathy. CHEST: Chest is clear to auscultation and percussion. CARDIAC: Regular rate and rhythm with no murmur gallop or rubs. ABDOMEN: Soft, nondistended, nontender; no hepatosplenomegaly; bowel sounds are present in all four quadrants. EXTREMITIES: No clubbing, cyanosis, or edema. SKIN: Normal; no rash; no jaundice. FURNITURE SPRAYER: Sedated on a vent (Cory Duque) Assessment and Plan Plan - Acute on chronic anemia- likely multi factorial, this could be chronic dz related, but GI bleed couldn't be excluded. No obvious bleeding reported, stools for Hemoccult Pending. Pradaxa on hold, currently on Heparin He was receiving TF through OGT and tolerating well, currently on hold for possible extubation. No documented EGD/colonoscopy, Ct as below hgb today is 7.6 s/p one unit of blood - Elevated LFTs- likely ischemic effect, he did have episodes of hypotension. hepatitis panel pending CT of abd/pelvis on (04/19/17) 1. Tiny bilateral pleural effusions with adjacent patchy infiltrates consistent with atelectasis and/or pneumonia. Clinical correlation is recommended. 2. No acute intraabdominal process. 3. Cardiomegaly and coronary artery calcifications. 4. Degenerative changes and scoliosis of the thoracolumbar spine. US on (04/17)---> Nonvisualization of the common bile duct, pancreas and spleen. 2. Simple cyst left kidney. - AMS- blood cx negative so far, urine cx negative - Acute respiratory failure- intubated by [facility] - Acute kidney injury - A-fib ( on Pradaxa, this is on hold now), dementia, DM, HTN per attending Plan: - TF per attending - No obvious bleeding, will hold off on EGD/colonoscopy for now - Monitor hh - Transfuse as needed - Monitor LFTs - Await hepatitis panel - Await stools for Hemoccult - Supportive care - Patient seen and examined by Dr. Perez and myself and this note is written on his behalf. (Cory Duque) Physician Comments Patient seen and examined Agree with above Continue with current supportive care Monitor labs Patient will require endoscopy at some point but there is no urgent or emergent issues at this point (Emile Perez MD) Cory Duque Apr 20, 2017 11:07 Emile Perez MD Apr 21, 2017 11:51
--- NOTE | 2017-04-20 11:16 | HHI.IDPN ---
Subjective Subjective Remarks is a 76 y/o CM longterm resident with a reported PMHx of hypothyroidism, hypertension, diabetes mellitus, dementia, seizure disorder on Dilantin, atrial fibrillation on Pradaxa who presented to the [facility] Emergency Department for confusion and altered mental status. The patient was also found hypothermic with a temperature of 88.9 rectally. History obtained from review of medical records no family could be reached. His laboratory data showed acute kidney injury with creatinine level 1.37 and hyperkalemia with a potassium level 6.0. His lactic acid level measured at 0.8. In addition, he was found to have elevated liver enzymes with AST 177, ALT 168 and total bilirubin less than 0.1. Due to altered mental status, the patient was intubated with etomidate, vecuronium and placed on full mechanical ventilation. CT scan of the brain obtained in the emergency department showed slight atrophic and small vessel ischemic changes without any evidence for acute hemorrhage or mass effect. Chest x-ray post intubation showed right upper lobe and left lower lobe densities and adequate placement of the ET tube. In the emergency room, the patient was given approximately 1.5 liters of crystalloids in addition to vancomycin and Zosyn for possible aspiration pneumonia. Other significant labs showed a TSH of 11.0 and a random cortisol level of 9.7. He was also be given Decadron 10 mg IV push. ABG post-intubation showed a pH of 7.43, CO2 38, pAO2 186, bicarb 25, saturation 98% on assist control ventilation with a rate of 16, tidal volume 500, PEEP of 5 and FIO2 of 50%. Patient seen in the ICU intubated, off sedation but no purposeful movements, not following commands, was moving his neck and upper body in all directions. Patient is not on pressors but is on a bear hugger to maintain body temperature as he continues to be hypothermic. UO is adequate. No diarrhea, no rash, no fevers, No witnessed seizures. Of note his dilantin level is supra therapeutic. ID consulted for evaluation of persistent hypothermia, sepsis, aspiration pneumonia, Altered mental status. Antibiotics Azithro IV Vanco IV Zosyn IV Lines Line sites with no e.o infection. Past Medical History 1. Dementia. 2. Hypertension. 3. Seizure disorder. 4. Atrial fibrillation. 5. Diabetes. 6. Gastroesophageal reflux disease (GERD). 7. Schizophrenia. 8. Chronic kidney disease. 9. Anemia. 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 Vital Signs Date Time Temp Pulse Resp B/P Pulse Ox O2 Delivery O2 Flow Rate FiO2 04/20/17 09:18 100 35 04/20/17 09:13 96 35 04/20/17 06:00 93 04/20/17 04:11 98 35 04/20/17 04:00 100 04/20/17 04:00 35 04/20/17 04:00 100.0 108 16 96/55 98 04/20/17 03:30 100.4 101 16 109/55 98 04/20/17 03:00 100.2 100 16 116/61 98 04/20/17 02:30 100.0 100 16 114/60 98 04/20/17 02:00 92 04/20/17 02:00 99.9 100 16 109/55 97 04/20/17 01:30 99.9 101 16 111/56 97 04/20/17 01:13 97 35 04/20/17 01:00 99.7 100 16 106/56 97 04/20/17 01:00 99.7 100 16 106/56 97 04/20/17 00:30 99.5 97 16 106/58 97 04/20/17 00:00 35 04/20/17 00:00 99.7 95 16 93/54 97 04/20/17 00:00 93 04/19/17 23:30 99.5 96 16 102/55 97 04/19/17 23:00 99.3 91 16 95/54 98 04/19/17 22:30 99.1 89 16 95/51 98 04/19/17 22:00 90 04/19/17 22:00 99.0 87 16 96/51 98 04/19/17 21:30 98.8 90 16 96/53 98 04/19/17 21:00 98.4 92 16 100/56 98 04/19/17 20:30 98.2 92 16 96/53 99 04/19/17 20:00 98.1 87 16 98/56 98 04/19/17 20:00 35 04/19/17 20:00 85 04/19/17 19:57 98 35 04/19/17 18:00 86 04/19/17 17:39 99 100 04/19/17 16:00 35 04/19/17 16:00 98.1 81 16 89/55 98 04/19/17 16:00 81 04/19/17 15:51 98 35 04/19/17 14:00 35 04/19/17 14:00 81 04/19/17 12:06 35 04/19/17 12:06 99 35 04/19/17 12:00 95.5 76 16 102/55 98 04/19/17 12:00 76 04/19/17 04/19/17 04/20/17 15:00 23:00 07:00 Intake Total 1717 ml 1057 ml 1425 ml Output Total 700 ml 1000 ml 1200 ml Balance 1017 ml 57 ml 225 ml Intake Oral 0 ml 0 ml IV Total 1108 ml 757 ml 735 ml Tube Feeding 359 ml 200 ml 290 ml Other 250 ml 100 ml 400 ml Output Urine Total 700 ml 1000 ml 1200 ml Gastric Drainage Total 0 ml # Bowel Movements 0 0 . Laboratory Tests Test 04/18/17 04/19/17 04/20/17 17:30 04:30 03:20 Hemoglobin 8.0 GM/DL 8.1 GM/DL 7.6 GM/DL Hematocrit 23.7 % 24.9 % 22.5 % White Blood Count 12.2 TH/MM3 9.4 TH/MM3 Red Blood Count 2.68 MIL/MM3 2.46 MIL/MM3 Mean Corpuscular Volume 92.7 FL 91.5 FL Mean Corpuscular Hemoglobin 30.2 PG 30.9 PG Mean Corpuscular Hemoglobin 32.6 % 33.8 % Concent Red Cell Distribution Width 19.4 % 19.2 % Platelet Count 135 TH/MM3 120 TH/MM3 Mean Platelet Volume 7.8 FL 7.8 FL Neutrophils (%) (Auto) 85.2 % 85.0 % Lymphocytes (%) (Auto) 11.2 % 10.6 % Monocytes (%) (Auto) 3.4 % 4.3 % Eosinophils (%) (Auto) 0.1 % 0.0 % Basophils (%) (Auto) 0.1 % 0.1 % Neutrophils # (Auto) 10.4 TH/MM3 7.9 TH/MM3 Lymphocytes # (Auto) 1.4 TH/MM3 1.0 TH/MM3 Monocytes # (Auto) 0.4 TH/MM3 0.4 TH/MM3 Eosinophils # (Auto) 0.0 TH/MM3 0.0 TH/MM3 Basophils # (Auto) 0.0 TH/MM3 0.0 TH/MM3 CBC Comment DIFF FINAL DIFF FINAL Differential Comment Laboratory Tests Test 04/18/17 04/19/17 04/19/17 04/20/17 17:10 04:30 13:40 03:20 Total Creatine Kinase 70 U/L Troponin I LESS THAN 0.02 NG/ML Sodium Level 148 MEQ/L 146 MEQ/L Potassium Level 3.3 MEQ/L 4.0 MEQ/L Chloride Level 117 MEQ/L 115 MEQ/L Carbon Dioxide Level 20.1 MEQ/L 22.5 MEQ/L Anion Gap 11 MEQ/L 9 MEQ/L Blood Urea Nitrogen 28 MG/DL 24 MG/DL Creatinine 1.50 MG/DL 1.41 MG/DL Estimat Glomerular Filtration 55 ML/MIN 59 ML/MIN Rate Random Glucose 119 MG/DL 126 MG/DL Calcium Level 7.3 MG/DL 7.4 MG/DL Protein Corrected Calcium 7.8 MG/DL 8.1 MG/DL Phosphorus Level 3.2 MG/DL 2.5 MG/DL Magnesium Level 2.0 MG/DL 2.0 MG/DL Total Bilirubin 0.2 MG/DL 0.2 MG/DL Aspartate Amino Transf 110 U/L 121 U/L (AST/SGOT) Alanine Aminotransferase 108 U/L 111 U/L (ALT/SGPT) Alkaline Phosphatase 173 U/L 157 U/L Total Protein 6.2 GM/DL 5.9 GM/DL Albumin 2.0 GM/DL 2.0 GM/DL Ammonia 27 MCMOL/L Microbiology Date/Time Procedure Status Source Growth 04/17/17 12:15 Aerobic Blood Culture - Preliminary Resulted Blood Peripheral NO GROWTH IN 3 DAYS 04/17/17 12:15 Anaerobic Blood Culture - Preliminary Resulted Blood Peripheral NO GROWTH IN 3 DAYS 04/17/17 12:20 Aerobic Blood Culture - Preliminary Resulted Blood Peripheral NO GROWTH IN 3 DAYS 04/17/17 12:20 Anaerobic Blood Culture - Preliminary Resulted Blood Peripheral NO GROWTH IN 3 DAYS 04/17/17 12:25 Urine Culture - Final Complete Urine Catheterized Urine NO GROWTH IN 48 HOURS. 04/17/17 12:25 Legionella Antigen - Final Complete Urine Catheterized Urine PRESUMPTIVE NEGATIVE FOR LEGIONELLA P... 04/17/17 12:25 Streptococcus pneumoniae Antigen (M - Final Complete Urine Catheterized Urine PRESUMPTIVE NEGATIVE FOR STREPTOCOCCU... Imaging Last Impressions Chest CT 04/19/17 0000 Signed Impressions: Service Date/Time: Wednesday, April 19, 2017 17:19 - CONCLUSION: 1. Posterior bibasilar patchy opacities consistent with atelectasis and/or mild infiltrates. Clinical correlation is recommended. 2. Tiny bilateral pleural effusions. 3. Cardiomegaly and coronary artery calcifications. 4. Degenerative changes and scoliosis of the thoracic spine. Rolando Rowe MD Abdomen/Pelvis CT 04/19/17 0000 Signed Impressions: Service Date/Time: Wednesday, April 19, 2017 17:16 - CONCLUSION: 1. Tiny bilateral pleural effusions with adjacent patchy infiltrates consistent with atelectasis and/or pneumonia. Clinical correlation is recommended. 2. No acute intraabdominal process. 3. Cardiomegaly and coronary artery calcifications. 4. Degenerative changes and scoliosis of the thoracolumbar spine. Rolando Rowe MD Chest X-Ray 04/18/17 0000 Signed Impressions: Service Date/Time: Tuesday, April 18, 2017 04:03 - CONCLUSION: No significant change Boubacar Pearl MD Head CT 04/17/17 1212 Signed Impressions: Service Date/Time: Monday, April 17, 2017 14:38 - CONCLUSION: Slight atrophic and small vessel ischemic changes without any evidence for acute hemorrhage or mass effect. Omer Urena MD Abdomen Ultrasound 04/17/17 0000 Signed Impressions: Service Date/Time: Monday, April 17, 2017 15:56 - CONCLUSION: 1. Nonvisualization of the common bile duct, pancreas and spleen. 2. Simple cyst left kidney. Dariusz Louis MD Physical Exam GENERAL: This is a well-nourished, well-developed patient, in no apparent distress. SKIN: No rashes, ecchymoses or lesions. Cool and dry. HEAD: Atraumatic. Normocephalic. No temporal or scalp tenderness. EYES: Pupils equal round and reactive. Extraocular motions intact. No scleral icterus. No injection or drainage. ENT: Intubated. NECK: Trachea midline. Supple, nontender, no meningeal signs. CARDIOVASCULAR: Regular rate and rhythm without murmurs, gallops, or rubs. RESPIRATORY: Clear to auscultation. Breath sounds equal bilaterally. No wheezes , rales, or rhonchi. GASTROINTESTINAL: Abdomen soft, non-tender, nondistended. MUSCULOSKELETAL: Extremities without clubbing, cyanosis, or edema. No joint tenderness, effusion, or edema noted. No calf tenderness. Negative Homans sign bilaterally. NEUROLOGICAL: Off sedation, moving upper body and neck. No meaningful response. Psych: could not be assessed IV line sites with no e.o infection. Assessment & Plan Remarks Possible Sepsis now (hypothermia, leucocytosis, hypotension). Hypothermia: hypothyroidism, infection Diarrhea possible Cdiff. Acute metabolic encephalopathy: infection, metabolic, hypothyroidism Acute respiratory failure on vent. Possible HCAP, aspiration pneumonia on admission Acute renal failure: was on Bactrim as outpt plus ? prerenal and sepsis. H/o seizures Recs: Continue Azithro IV Continue Zosyn IV Continue Vanco IV (target trough 15-20) for Pneumonia. Follow sputum cultures Follow cultures Follow clinically. Agree with MRI. Depending on results of MRI will consider LP. Reviewed Neurology consult note. d.w Dr.Iskandar Bai RN for pt. Check Cdiff PCR Sana Kumar MD Apr 20, 2017 11:15
--- NOTE | 2017-04-20 11:35 | HHI.CCPN ---
Subjective Remarks/Hospital Course The patient is a 76-[facility]-old [facility] resident with a past medical history of hypothyroidism, hypertension, diabetes mellitus, dementia, seizure disorder, atrial fibrillation on Pradaxa who presented to the [facility] Emergency Department for confusion and altered mental status. The patient was also found hypothermic with a temperature of 88.9 rectally. His laboratory data showed acute kidney injury with creatinine level 1.37 and hyperkalemia with a potassium level 6.0. His lactic acid level measured at 0.8. In addition, he was found to have elevated liver enzymes with AST 177, ALT 168 and total bilirubin less than 0.1. Due to altered mental status, the patient was intubated with etomidate, vecuronium and placed on full mechanical ventilation. CT scan of the brain obtained in the emergency department showed slight atrophic and small vessel ischemic changes without any evidence for acute hemorrhage or mass effect. Chest x-ray post intubation showed right upper lobe and left lower lobe densities and adequate placement of the ET tube. In the emergency room, the patient was given approximately 1.5 liters of crystalloids in addition to vancomycin and Zosyn for possible aspiration pneumonia. Other significant labs showed a TSH of 11.0 and a random cortisol level of 9.7. He was also be given Decadron 10 mg IV push. ABG post-intubation showed a pH of 7.43, CO2 38, pAO2 186, bicarb 25, saturation 98% on assist control ventilation with a rate of 16, tidal volume 500, PEEP of 5 and FIO2 of 50%. When seen in the emergency room, he was sedated with Versed. 04/18 Patient is intubated and sedated with Versed 5mg started on Levophed 4 mics overnight. Hgb 6.8 this morning. 04/19 Patient remains intubated with versed. Off Levophed. s/p transfusion 1unit PRBC yesterday. 04/20 Patient is off Levophed,on Versed 2mg/hr. Tmax 100.4 Objective Vital Signs Date Time Temp Pulse Resp B/P Pulse Ox O2 Delivery O2 Flow Rate FiO2 04/20/17 11:27 98 35 04/20/17 06:00 93 04/20/17 04:00 100.0 16 96/55 04/17/17 17:00 Ventilator 04/17/17 14:00 2 Intake and Output 04/19/17 04/19/17 04/20/17 08:00 16:00 00:00 Intake Total 1159 ml 1717 ml 1057 ml Output Total 350 ml 700 ml 1000 ml Balance 809 ml 1017 ml 57 ml Result Diagram: 04/20/17 0320 04/20/17 0320 Other Results Microbiology Date/Time Procedure Status Source Growth 04/17/17 12:25 Urine Culture - Final Complete Urine Catheterized Urine NO GROWTH IN 48 HOURS. 04/17/17 12:25 Legionella Antigen - Final Complete Urine Catheterized Urine PRESUMPTIVE NEGATIVE FOR LEGIONELLA P... 04/17/17 12:25 Streptococcus pneumoniae Antigen (M - Final Complete Urine Catheterized Urine PRESUMPTIVE NEGATIVE FOR STREPTOCOCCU... Laboratory Tests Test 04/19/17 13:03 Blood Gas Puncture Site RT RADIAL Blood Gas Patient Temperature 98.6 Blood Gas HCO3 19 mmol/L (22-26) Blood Gas Base Excess -5.4 mmol/L (-2-2) Blood Gas Oxygen Saturation 97 % (90-100) Arterial Blood pH 7.39 (7.380-7.420) Arterial Blood Partial 31 mmHg (38-42) Pressure CO2 Arterial Blood Partial 174 mmHg Pressure O2 (61-120) Arterial Blood Oxygen Content 11.5 Vol % (12.0-20.0) Arterial Blood 1.2 % (0-4) Carboxyhemoglobin Arterial Blood Methemoglobin 1.2 % (0-2) Blood Gas Hemoglobin 8.2 G/DL (12.0-16.0) Oxygen Delivery Device VENTILATOR Blood Gas Ventilator Setting CPAP [id number]/[id number] Blood Gas Inspired Oxygen 35 % Imaging Last Impressions Brain MRI 04/20/17 0000 Signed Impressions: Service Date/Time: Thursday, April 20, 2017 14:14 - CONCLUSION: Symmetric bilateral frontal and parietal high convexity cortical edema. Unusual appearance in which venous infarction and encephalitis should be considered among the differential possibilities. Boubacar Pearl MD Chest CT 04/19/17 0000 Signed Impressions: Service Date/Time: Wednesday, April 19, 2017 17:19 - CONCLUSION: 1. Posterior bibasilar patchy opacities consistent with atelectasis and/or mild infiltrates. Clinical correlation is recommended. 2. Tiny bilateral pleural effusions. 3. Cardiomegaly and coronary artery calcifications. 4. Degenerative changes and scoliosis of the thoracic spine. Rolando Rowe MD Abdomen/Pelvis CT 04/19/17 0000 Signed Impressions: Service Date/Time: Wednesday, April 19, 2017 17:16 - CONCLUSION: 1. Tiny bilateral pleural effusions with adjacent patchy infiltrates consistent with atelectasis and/or pneumonia. Clinical correlation is recommended. 2. No acute intraabdominal process. 3. Cardiomegaly and coronary artery calcifications. 4. Degenerative changes and scoliosis of the thoracolumbar spine. Rolando Rowe MD Chest X-Ray 04/18/17 0000 Signed Impressions: Service Date/Time: Tuesday, April 18, 2017 04:03 - CONCLUSION: No significant change Boubacar Pearl MD Head CT 04/17/17 1212 Signed Impressions: Service Date/Time: Monday, April 17, 2017 14:38 - CONCLUSION: Slight atrophic and small vessel ischemic changes without any evidence for acute hemorrhage or mass effect. Omer Urena MD Abdomen Ultrasound 04/17/17 0000 Signed Impressions: Service Date/Time: Monday, April 17, 2017 15:56 - CONCLUSION: 1. Nonvisualization of the common bile duct, pancreas and spleen. 2. Simple cyst left kidney. Dariusz Louis MD Objective Remarks GENERAL: Patient is 76 yo intubated and sedated SKIN: Warm and dry. HEAD: Normocephalic. EYES: No scleral icterus. No injection or drainage. NECK: Supple, trachea midline. No JVD or lymphadenopathy. CARDIOVASCULAR: Regular rate and rhythm without murmurs, gallops, or rubs. RESPIRATORY: Breath sounds equal bilaterally. No accessory muscle use. GASTROINTESTINAL: Abdomen soft, non-tender, nondistended. MUSCULOSKELETAL: No cyanosis, or edema. Neuro: Sedated A/P Assessment and Plan 1. VDRF 2. Aspiration pneumonia. 3. Acute kidney injury. 4. s/p Hyperkalemia. 5. Elevated liver enzymes. 6. History of atrial fibrillation on Pradaxa. 7. Diabetes mellitus. 8. Hypertension. 9. Anemia. 10. Hypothyroidism. 11. History of dementia and seizure disorder. 12. Positive C-diff. Plan: Neuro: On Versed infusion for sedation, daily sedation vacation. Monitor neuro status MRA brain today showed Symmetric bilateral frontal and parietal high convexity cortical edema. ? venous infarction vs encephalitis . Discussed with Neuro- DrMonserrat Grady will get MRA brain, and MRV brain to r/o venous thrombosis. In addition will place empirically on Acyclovir - adjust dose per renal function. If MRA MRV negative will consider LP. Discussed with Neuro and ID. CT brain in the ER showed no evidence of any acute hemorrhage or mass effect. Dilantin level: 18 04/19 EEG 04/19- mod- severe encephalopathy- Neuro is following- if no improvements in mental status t/c MRI brain Pulm: Continue with vent support and maintain sats above 92%. Bronchodilators, ICU vent bundle. SBT trials as lobo. CT chest: Posterior bibasilar patchy opacities consistent with atelectasis and/or mild infiltrates. CV: Monitor HR and BP keep MAP>65mmHg Lactic acid level measured at 0.8. Continue with IVF On stress dose steroids- HC 100mg IV Q8 : Monitor renal function, intake and output and avoid nephrotoxins. Cr: 1.41 today from 1.50 with UOP:2900 ml in 24 hrs , IVF D5W@84ml/hr, Free water 250ml Q8, monitor sodium level. GI: Monitor LFT's, follow up on Hepatitis profile. US abdomen: Nonvisualization of the common bile duct, pancreas and spleen. Simple cyst left kidney Normal liver, no gallstones. 04/19 CT abdomen/pelvis: No acute abd process. on Protonix 40mg IV daily for GI prophylaxis. On tube feeds-- Glucerna 1.5 @45ml/hr Consult GI for anemia/ drop in H/H might need EGD ID: Given Vancomycin and Zosyn in ED. ID is following. Continue with Vanco, Zosyn, Azithromycin. Monitor for signs of infections ( Fever, WBC) Add Acyclovir and Flagyl. Strep pneumoniae and Legionella urinary antigen negative. 04/17 Blood cx, urine cx: NGTD Endo: SSI with Accu-Chek q. 4 hours for glycemic control. On Synthroid 50 mcg daily. 04/17 TSH level: 11.0. FT4:0.69(L), FT3 level: 1.67(L) Recheck thyroid panel in am. Random cortisol level measured 9.7. On Sterids- HC 100mg IV Q8 Heme: Monitor CBC s/p transfusion 1unit PRBC on 04/18 Check Hemoccult stool, GI eval. DVT prophylaxis with SCDs, heparin SQ on hold given anemia requiring blood transfusion GI prophylaxis- On Protonix 40mg IV BID Lines: Left subclavian CVP placed 04/18 Palliative care eval to asses with goals of care CCT 30 mins Jennifer Restrepo MD Apr 20, 2017 11:35
[2017-04-20] MEDS: VANCOMYCIN INJ 1,000 MG in SODIUM CHLOR 0.9% 250 ML INJ 250 ML IV SCH (12:05)
--- NOTE | 2017-04-20 15:12 | RADRPT ---
EXAM DATE/TIME: 04/20/2017 14:14 [place] COMPARISON: CT BRAIN W/O CONTRAST, April 17, 2017, 14:38. INDICATIONS : CVA. Abnormal CT scan. MEDICAL HISTORY : Unknown. Cleared by Rad. SURGICAL HISTORY : Unknown. ENCOUNTER: Subsequent ACUITY: 4-6 days PAIN SCORE: Nonresponsive. LOCATION: head TECHNIQUE: Multiplanar, multisequence MRI of the brain was performed without contrast. FINDINGS: There is gyriform T2 prolongation involving the high convexity frontal and parietal cortices bilatera lly, with minimal associated diffusion restriction, particularly on the right. There is no evidence o f intracranial mass or hemorrhage. The brainstem and posterior fossa structures are unremarkable. The extracranial structures are grossly benign and intact. CONCLUSION: Symmetric bilateral frontal and parietal high convexity cortical edema. Unusual appearance in which v enous infarction and encephalitis should be considered among the differential possibilities. Boubacar Pearl MD on April 20, 2017 at 14:52 Board Certified Radiologist. This report was verified electronically.
[2017-04-20 15:21] LABS: C. DIFF EPI 027 PRESUMPTIVE POSITIVE (NEGATIVE); C. DIFF TOXIN PCR POSITIVE (NEGATIVE)
[2017-04-20] MEDS: AZITHROMYCIN INJ 500 MG in SODIUM CHLOR 0.9% 250 ML INJ 250 ML IV SCH (15:29)
--- NOTE | 2017-04-20 15:37 | PD.CONS ---
Consult Service Palliative Care Consult Requested By Dr. Restrepo. Primary Care Physician Unknown Reason for Consultation a. To assist with evaluation and management of symptoms including: Shortness of breath and debility. b. To assist medical decision maker(s) with: better understanding of current medical conditions; weighing benefits/burdens of medical treatment options; making medical treatment decisions. . (Vida Morales) HPI History of Present Illness Mr. Rivera is a 76 y/o male known to palliative care with a medical history of dementia, atrial fibrillation on anticoagulation, seizures, hypertension, schizophrenia and chronic kidney disease. Patient presented to ED on 04/17/17 via EMS for evaluation of altered mental status. Upon ED arrival, patient was hypothermic with a rectal temperature of 88.9, bear hugger applied. CT of the head negative for acute process. Patient was intubated for airway protection and transferred to ICU for further management. Chest x-ray revealing atelectasis of the right upper lobe consistent with aspiration pneumonia. Infectious disease, Dr. Alyson Kumar consulted on 04/19/17 for evaluation of persistent hypothermia, sepsis, aspiration pneumonia and altered mental status. Patient was continued on IV antibiotics. On 04/18/17, patient was started on Levophed secondary to hypotension. Neurology, Dr. Rasmussen consulted on 04/19/17 for evaluation of altered mental status. EEG revealing moderate to severe encephalopathy, no active seizures. Chest CT 724 revealing atelectasis and/or mild infiltrates. GI, Dr. Perez consulted on 04/20/17 for evaluation of acute on chronic anemia. Hemoglobin dropped on 04/18/17 from 9.5 on admission to 6.8. Patient received 1 pack of red blood cell transfusion. Abdomen/pelvis CT negative for acute intra-abdominal process. As per GI, no views sign of bleeding. Pending brain MRI. Palliative care has been consulted for further clarifications of goals of care given patient's multiple comorbidities and current clinical condition. Reviewed past medical history and prior acute hospitalizations. Patient is a long-term intermediate resident. Recent acute hospitalization from 03/02/17 to secondary to Dilantin toxicity and UTI. ED visit 01/30/17 for evaluation after patient fell from his bed. Patient was discharged to intermediate with no signs of acute injury. ED visit on 12/23/16 for evaluation of head injury secondary to fall while transferring to a standing position. CT of the head negative for acute process. Acute hospitalization from 07/01/16 to 07/06/16 secondary to recurrent seizures. Palliative care was consulted, family declined G-tube for nutrition at that time. CT of the head negative for acute process. Prior hospitalization 06/13/16 to 06/27/16 secondary to aspiration pneumonia and seizures. Palliative care was consulted at that time. Additional medical records show that the patient had an aspiration event associated with seizure activity in 12/2014. He required intubation and mechanical ventilation at that time. He has a history of paranoid schizophrenia requiring frequent hospitalizations back to the 1970s. He normally lives on a [place] at [facility] and [facility]. There has been occasional violent behavior. Patient seen in ICU, he remains orally intubated on mechanical ventilation. Unresponsive to verbal or tactile stimuli. Not sedated. Patient afebrile, stable hemodynamically. Increased oxygen requirement, currently 60% FiO2 from 35%. Telephone conversation with patient's son Chad Rivera. Medical update provided. Shared concerns of patient's clinical condition, guarded prognosis given multiple chronic comorbidities, acute events, physical deconditioning and advanced age. Goals of care aggressive at this time, pending brain MRI. Discussed risks, benefits and limitations of CPR given patient's condition. Son electing to continue aggressive management at this time, but receptive to continue goals of care conversation once MRI results are available. . Function/Cognitive Trajectory Patient residing a long-term facility. Long history of paranoid schizophrenia first diagnosed in the early . He had been in and out of psychiatric hospitals. The patient's son reports that Mr. Rivera has been essentially bedbound since February 2015 when he sustained a hip injury in a fall. The intermediate notes indicate he has been at [facility] most recently since 11/11/2015. There is a history of dementia, and the son reports that the patient says only a few words, and does not participate in conversation. Requires assistance with all ADLs. . (Vida Morales) Review of Systems ROS Limitations: Clinical Condition, Intubated, Altered Mental Status, Other ( altered mental status) Cardiovascular: DENIES: Lower Extremity Edema Hematologic/Lymphatics: DENIES: Bruising Psychiatric: COMPLAINS OF: Anxiety Other ROS: Limited ROS secondary to clinical condition, intubated on mechanical ventilation. ROS obtained from medical records, family and clinical observation. . (Vida Morales) Past Family Social History Coded Allergies: *MDRO Multi-Drug Resistant Organism (Verified Adverse Reaction, Unknown, MRSA, 04/19/17) 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 - 06/13/16, 04/17/17 Past Medical History Dementia HTN Seizure disorder A-fib on chronic anticoagulation Diabetes mellitus GERD Schizophrenia Chronic kidney disease Chronic anemia secondary to iron deficiency . Past Surgical History Left hip surgery. . Reported Medications Lorazepam 1 Mg Tab 1 Mg EXTERNAL Q6HR PRN Synthroid (Levothyroxine Sodium) 50 Mcg Tab 50 Mcg PO DAILY@0600 [place] (Hydrocodone-Acetaminophen) 5-325 mg Tab 1 Tab PO Q12HR PRN Dilantin-125 Liq (Phenytoin) 125 Mg/5 Ml Susp 200 Mg PO Q12HR Trimethoprim 100 Mg Tab 100 Mg PO HS Tylenol (Acetaminophen) 325 Mg Tab 650 Mg PO Q4H PRN Macrodantin (Nitrofurantoin Macrocrystal) 50 Mg Cap 50 Mg PO DAILY Zyprexa (Olanzapine) 10 Mg Tab 10 Mg PO HS Lactulose Liq (Lactulose) 10 Gm/15 Ml Soln 45 Ml PO TID PRN Pradaxa (Dabigatran) 150 Mg Cap 150 Mg PO BID Metoprolol Tartrate 50 Mg Tab 50 Mg PO BID Lexapro (Escitalopram Oxalate) 10 Mg Tab 10 Mg PO DAILY Divalproex DR (Divalproex Sodium) 250 Mg Tabdr 750 Mg PO BID Atorvastatin (Atorvastatin Calcium) 80 Mg Tab 80 Mg PO HS . Current Medications Medications (Trade) Dose Ordered Sig/Miquel Route Start Time Stop Time Status Last Admin (NS Flush) 2 ml UNSCH PRN IV FLUSH 04/17/17 12:15 04/17/17 15:06 (Heparin Inj) 5,000 units Q12H SQ 04/17/17 15:30 04/20/17 05:05 Miscellaneous Information 1 Q361D XX 04/17/17 15:30 (Chlorhexidine 2% Cloth) 3 pack Taper DAILY@04 TOP 04/18/17 04:00 04/14/18 03:59 04/20/17 04:00 (Chlorhexidine 2% Cloth) 3 pack UNSCH PRN TOP 04/17/17 15:30 (Ramona-Colace) 1 tab BID PO 04/17/17 21:00 04/20/17 08:35 (Milk Of Magnesia Liq) 30 ml Q12H PRN PO 04/17/17 15:30 (Senokot) 17.2 mg Q12H PRN PO 04/17/17 15:30 (Dulcolax Supp) 10 mg DAILY PRN RECTAL 04/17/17 15:30 (Lactulose Liq) 30 ml DAILY PRN PO 04/17/17 15:30 (Synthroid) 50 mcg DAILY@0600 PO 04/17/17 15:30 04/20/17 05:06 (D50w (Vial) Inj) 50 ml UNSCH PRN IV 04/17/17 15:30 (Glucagon Inj) 1 mg UNSCH PRN OTHER 04/17/17 15:30 Insulin Human Regular 1 1 Q4HR SQ 04/17/17 16:00 04/20/17 11:59 Midazolam HCl 100 ml @ 0 mls/hr TITRATE IV 04/17/17 15:30 04/20/17 02:08 Pharmacy Profile Note 0 ml @ 0 mls/hr UNSCH OTHER 04/17/17 15:30 Piperacillin Sod/ Tazobactam Sod 100 ml @ 200 mls/hr Q8H IV 04/17/17 18:00 04/20/17 09:22 Azithromycin 500 mg/Sodium Chloride 250 ml @ 250 mls/hr Q24H IV 04/17/17 17:00 04/19/17 17:55 Vancomycin HCl 1000 mg/Sodium Chloride 250 ml @ 250 mls/hr Q24H IV 04/18/17 13:00 04/20/17 12:05 (Levophed-Dextrose Drip) 250 ml @ 0 mls/hr TITRATE IV 04/17/17 23:00 04/18/17 17:55 Terbutaline Sulfate 1 mg 1 mg UNSCH PRN SQ 04/17/17 23:00 Potassium Chloride 100 ml @ 50 mls/hr Q2H PRN IV 04/18/17 07:30 (KCl 20 Meq Premix Inj) 100 ml @ 50 mls/hr Q2H PRN IV 04/18/17 07:30 Potassium Bicarb/ Potassium Chloride 50 meq 50 meq UNSCH PRN PO 04/18/17 07:30 Potassium Chloride 100 ml @ 25 mls/hr UNSCH PRN IV 04/18/17 07:30 Potassium Chloride 100 ml @ 50 mls/hr Q2H PRN IV 04/18/17 07:30 04/19/17 07:53 (Magnesium Sulfate Inj/NS Inj) 100 ml @ 50 mls/hr UNSCH PRN IV 04/18/17 07:30 Magnesium Oxide 800 mg 800 mg UNSCH PRN PO 04/18/17 07:30 (Magnesium Sulfate Inj/NS Inj) 100 ml @ 50 mls/hr UNSCH PRN IV 04/18/17 07:30 Potassium Phosphate 2000 mg 2,000 mg Q4H PRN PO 04/18/17 07:30 (Sodium Phosphate Inj/NS 250 ml Inj) 250 ml @ 42 mls/hr UNSCH PRN IV 04/18/17 07:30 04/18/17 10:40 Potassium Phosphate 2000 mg 2,000 mg UNSCH PRN PO/TUBE 04/18/17 07:30 Potassium Phosphate 30 mmol/ Sodium Chloride 260 ml @ 42 mls/hr UNSCH PRN IV 04/18/17 07:30 (D5W 1000 ml Inj) 1,000 ml @ 84 mls/hr [id number] IV 04/18/17 07:30 04/20/17 05:06 (Free Water) 250 ml Q8H G-TUBE 04/18/17 08:00 04/20/17 08:00 (SoluCORTEF INJ) 100 mg Q8H IV PUSH 04/18/17 08:00 04/20/17 08:34 (Lactulose Liq) 15 ml BID PO 04/19/17 14:00 04/20/17 08:34 Miscellaneous Information SPECIFIC LAB TO BE SORIN... ONCE ONCE .XX 04/21/17 12:45 04/21/17 12:46 (Dilantin Inj) 100 mg Q8HR IV 04/19/17 22:00 04/20/17 05:06 (Protonix Inj) 40 mg BID IV 04/20/17 21:00 Family History Patient has 3 children who are alive and well. . Substance Use Tobacco: None reported. Alcohol: None reported. Prescription med abuse: None reported. Illicits: None reported. . Psychosocial History The patient was born and raised in [facility]. He was for about 20 years but for many years. He had 4 sons and 2 daughters , one daughter is . Most of the family lives in the [facility]. There is a son and a daughter from the second , as well. . Spiritual/Cultural Factors No sabianist affiliation. . (Vida Morales) Durable Power of Site Leasing Agent: Copy in medical record Date completed: 05/04/2014 -- THIS IS A [place] [employer] POWER OF [employer]LE[employer]ING VAT TENDER DOCUMENT. IT DOES NOT REFER TO HEALTH CARE DECISION MAKING. Financial decision making is given to Chad Rivera. Health Care Surrogate(s): During previous hospitalization, all available children were previously contacted by palliative care. All have deferred health care decision making to two of the children Chad and Suzi as co-HCP. * Chad Rivera (son) who lives in [place] [phone] * Suzi Ortiz (daughter) who lives in [facility] [phone] . Documented care wishes: No living will completed. During the previous hospitalization, the family continued to want aggressive care, including intubation for some number of days. Family/friends goals: In discussion with the patient's son/HCS Chad, continued aggressive care is still desired. . Ethical and Legal Issues Living will completed. Patient unable to participating in medical decision- making secondary to clinical condition, dementia. . (Vida Morales) Physical Exam Vital Signs Date Time Temp Pulse Resp B/P Pulse Ox O2 Delivery O2 Flow Rate FiO2 04/20/17 12:00 35 04/20/17 12:00 96.8 73 16 153/73 100 04/20/17 12:00 73 04/20/17 11:27 98 35 04/20/17 10:00 77 04/20/17 09:18 100 35 04/20/17 09:13 96 35 04/20/17 08:00 97.3 83 16 115/56 98 04/20/17 08:00 83 04/20/17 08:00 35 04/20/17 06:00 93 04/20/17 04:11 98 35 04/20/17 04:00 100 04/20/17 04:00 35 04/20/17 04:00 100.0 108 16 96/55 98 04/20/17 03:30 100.4 101 16 109/55 98 04/20/17 03:00 100.2 100 16 116/61 98 04/20/17 02:30 100.0 100 16 114/60 98 04/20/17 02:00 92 04/20/17 02:00 99.9 100 16 109/55 97 04/20/17 01:30 99.9 101 16 111/56 97 04/20/17 01:13 97 35 04/20/17 01:00 99.7 100 16 106/56 97 04/20/17 01:00 99.7 100 16 106/56 97 04/20/17 00:30 99.5 97 16 106/58 97 04/20/17 00:00 35 04/20/17 00:00 99.7 95 16 93/54 97 04/20/17 00:00 93 04/19/17 23:30 99.5 96 16 102/55 97 04/19/17 23:00 99.3 91 16 95/54 98 04/19/17 22:30 99.1 89 16 95/51 98 04/19/17 22:00 90 04/19/17 22:00 99.0 87 16 96/51 98 04/19/17 21:30 98.8 90 16 96/53 98 04/19/17 21:00 98.4 92 16 100/56 98 04/19/17 20:30 98.2 92 16 96/53 99 04/19/17 20:00 98.1 87 16 98/56 98 04/19/17 20:00 35 04/19/17 20:00 85 04/19/17 19:57 98 35 04/19/17 18:00 86 04/19/17 17:39 99 100 04/19/17 16:00 35 04/19/17 16:00 98.1 81 16 89/55 98 04/19/17 16:00 81 04/19/17 15:51 98 35 04/19/17 04/20/17 18:59 06:59 Intake Total 1717 ml 2482 ml Output Total 700 ml 2200 ml Balance 1017 ml 282 ml Intake Oral 0 ml IV Total 1108 ml 1492 ml Tube Feeding 359 ml 490 ml Other 250 ml 500 ml Output Urine Total 700 ml 2200 ml Gastric Drainage Total 0 ml # Bowel Movements 0 Exam CONSTITUTIONAL/GENERAL: This is an elderly patient in no apparent distress. Orally intubated on mechanical ventilation. TUBES/LINES/DRAINS: ETT, OG, central line to left chest, Naik catheter, rectal tube, bilateral soft wrist restraints, SCDs. SKIN: No jaundice, rashes, or lesions. Ecchymoses on upper extremities. No wounds seen anteriorly. Skin temperature appropriate. Not diaphoretic. HEAD: Atraumatic. Normocephalic. EYES: No scleral icterus. No injection or drainage. ENT: Unable to evaluate hearing secondary to clinical condition. Nose without bleeding or purulent drainage. Moist oral mucosa. NECK: Trachea midline. Supple. CARDIOVASCULAR: Regular rate and rhythm. Peripheral pulses symmetric. RESPIRATORY/CHEST: Symmetric, unlabored respirations. Orally intubated on mechanical ventilation. Clear, diminished breath sounds. GASTROINTESTINAL: Abdomen large, round, soft. No guarding. Bowel sounds present. GENITOURINARY: Without palpable bladder distension. Naik catheter in place. MUSCULOSKELETAL: Extremities without clubbing, cyanosis. NEUROLOGICAL: Unresponsive to verbal or tactile stimuli. Not following any commands. PSYCHIATRIC: Unable to evaluate secondary to clinical condition. Appears calm. . (Vida Morales) Diagnostic Tests Laboratory Laboratory Tests Test 04/17/17 04/17/17 04/17/17 04/18/17 15:29 17:20 19:01 04:10 Blood Gas Puncture Site RT FEMORAL Blood Gas Patient Temperature 98.6 Blood Gas HCO3 25 mmol/L (22-26) Blood Gas Base Excess 1.0 mmol/L (-2-2) Blood Gas Oxygen Saturation 98 % (90-100) Arterial Blood pH 7.43 (7.380-7.420) Arterial Blood Partial 38 mmHg (38-42) Pressure CO2 Arterial Blood Partial 186 mmHG Pressure O2 (61-120) Arterial Blood Oxygen Content 11.0 Vol % (12.0-20.0) Arterial Blood 1.2 % (0-4) Carboxyhemoglobin Arterial Blood Methemoglobin 0.6 % (0-2) Blood Gas Hemoglobin 7.6 G/DL (12.0-16.0) Oxygen Delivery Device VENTILATOR Blood Gas Ventilator Setting 500/16/+5 Blood Gas Inspired Oxygen 50 % Nasal Screen MRSA (PCR) MRSA DETECTED (NOT DETECT) Sodium Level 150 MEQ/L 152 MEQ/L (136-145) (136-145) Potassium Level 4.2 MEQ/L 4.1 MEQ/L (3.5-5.1) (3.5-5.1) Chloride Level 120 MEQ/L 122 MEQ/L (98-107) (98-107) Carbon Dioxide Level 22.1 MEQ/L 21.6 MEQ/L (21.0-32.0) (21.0-32.0) Anion Gap 8 MEQ/L (5-15) 8 MEQ/L (5-15) Blood Urea Nitrogen 44 MG/DL (7-18) 35 MG/DL (7-18) Creatinine 1.37 MG/DL 1.32 MG/DL (0.60-1.30) (0.60-1.30) Estimat Glomerular Filtration 61 ML/MIN (>89) 64 ML/MIN (>89) Rate Random Glucose 195 MG/DL 93 MG/DL (74-106) (74-106) Calcium Level 8.0 MG/DL 7.6 MG/DL (8.5-10.1) (8.5-10.1) White Blood Count 7.1 TH/MM3 (4.0-11.0) Red Blood Count 2.12 MIL/MM3 (4.50-5.90) Hemoglobin 6.8 GM/DL (13.0-17.0) Hematocrit 20.3 % (39.0-51.0) Mean Corpuscular Volume 95.5 FL (80.0-100.0) Mean Corpuscular Hemoglobin 32.0 PG (27.0-34.0) Mean Corpuscular Hemoglobin 33.5 % Concent (32.0-36.0) Red Cell Distribution Width 16.9 % (11.6-17.2) Platelet Count 134 TH/MM3 (150-450) Mean Platelet Volume 8.5 FL (7.0-11.0) Neutrophils (%) (Auto) 84.5 % (16.0-70.0) Lymphocytes (%) (Auto) 12.9 % (9.0-44.0) Monocytes (%) (Auto) 2.3 % (0.0-8.0) Eosinophils (%) (Auto) 0.1 % (0.0-4.0) Basophils (%) (Auto) 0.2 % (0.0-2.0) Neutrophils # (Auto) 6.0 TH/MM3 (1.8-7.7) Lymphocytes # (Auto) 0.9 TH/MM3 (1.0-4.8) Monocytes # (Auto) 0.2 TH/MM3 (0-0.9) Eosinophils # (Auto) 0.0 TH/MM3 (0-0.4) Basophils # (Auto) 0.0 TH/MM3 (0-0.2) CBC Comment DIFF FINAL Differential Comment Phosphorus Level 0.4 MG/DL (2.5-4.9) Magnesium Level 2.0 MG/DL (1.5-2.5) Total Bilirubin 0.1 MG/DL (0.2-1.0) Aspartate Amino Transf 116 U/L (15-37) (AST/SGOT) Alanine Aminotransferase 102 U/L (12-78) (ALT/SGPT) Alkaline Phosphatase 150 U/L (45-117) Total Protein 5.7 GM/DL (6.4-8.2) Albumin 2.0 GM/DL (3.4-5.0) Test 04/18/17 04/18/17 04/18/17 04/18/17 06:05 09:00 12:26 17:10 Blood Type O POSITIVE Antibody Screen NEGATIVE White Blood Count 9.8 TH/MM3 (4.0-11.0) Red Blood Count 2.16 MIL/MM3 (4.50-5.90) Hemoglobin 7.0 GM/DL (13.0-17.0) Hematocrit 20.5 % (39.0-51.0) Mean Corpuscular Volume 94.8 FL (80.0-100.0) Mean Corpuscular Hemoglobin 32.1 PG (27.0-34.0) Mean Corpuscular Hemoglobin 33.9 % Concent (32.0-36.0) Red Cell Distribution Width 16.8 % (11.6-17.2) Platelet Count 139 TH/MM3 (150-450) Mean Platelet Volume 8.9 FL (7.0-11.0) Neutrophils (%) (Auto) 76.3 % (16.0-70.0) Lymphocytes (%) (Auto) 17.5 % (9.0-44.0) Monocytes (%) (Auto) 5.7 % (0.0-8.0) Eosinophils (%) (Auto) 0.3 % (0.0-4.0) Basophils (%) (Auto) 0.2 % (0.0-2.0) Neutrophils # (Auto) 7.5 TH/MM3 (1.8-7.7) Lymphocytes # (Auto) 1.7 TH/MM3 (1.0-4.8) Monocytes # (Auto) 0.6 TH/MM3 (0-0.9) Eosinophils # (Auto) 0.0 TH/MM3 (0-0.4) Basophils # (Auto) 0.0 TH/MM3 (0-0.2) CBC Comment DIFF FINAL Differential Comment Phosphorus Level 1.0 MG/DL (2.5-4.9) Phenytoin (Dilantin) Level 20.9 MCG/ML (10.0-20.0) Crossmatch Leukocyte-Reduced Red Blood Cells Blood Bank Comment Total Creatine Kinase 70 U/L (39-308) Troponin I LESS THAN 0.02 NG/ML (0.02-0.05) Test 04/18/17 04/19/17 04/19/17 04/19/17 17:30 04:30 13:00 13:03 Hemoglobin 8.0 GM/DL 8.1 GM/DL (13.0-17.0) (13.0-17.0) Hematocrit 23.7 % 24.9 % (39.0-51.0) (39.0-51.0) White Blood Count 12.2 TH/MM3 (4.0-11.0) Red Blood Count 2.68 MIL/MM3 (4.50-5.90) Mean Corpuscular Volume 92.7 FL (80.0-100.0) Mean Corpuscular Hemoglobin 30.2 PG (27.0-34.0) Mean Corpuscular Hemoglobin 32.6 % Concent (32.0-36.0) Red Cell Distribution Width 19.4 % (11.6-17.2) Platelet Count 135 TH/MM3 (150-450) Mean Platelet Volume 7.8 FL (7.0-11.0) Neutrophils (%) (Auto) 85.2 % (16.0-70.0) Lymphocytes (%) (Auto) 11.2 % (9.0-44.0) Monocytes (%) (Auto) 3.4 % (0.0-8.0) Eosinophils (%) (Auto) 0.1 % (0.0-4.0) Basophils (%) (Auto) 0.1 % (0.0-2.0) Neutrophils # (Auto) 10.4 TH/MM3 (1.8-7.7) Lymphocytes # (Auto) 1.4 TH/MM3 (1.0-4.8) Monocytes # (Auto) 0.4 TH/MM3 (0-0.9) Eosinophils # (Auto) 0.0 TH/MM3 (0-0.4) Basophils # (Auto) 0.0 TH/MM3 (0-0.2) CBC Comment DIFF FINAL Differential Comment Sodium Level 148 MEQ/L (136-145) Potassium Level 3.3 MEQ/L (3.5-5.1) Chloride Level 117 MEQ/L (98-107) Carbon Dioxide Level 20.1 MEQ/L (21.0-32.0) Anion Gap 11 MEQ/L (5-15) Blood Urea Nitrogen 28 MG/DL (7-18) Creatinine 1.50 MG/DL (0.60-1.30) Estimat Glomerular Filtration 55 ML/MIN (>89) Rate Random Glucose 119 MG/DL (74-106) Calcium Level 7.3 MG/DL (8.5-10.1) Protein Corrected Calcium 7.8 MG/DL (8.5-10.1) Phosphorus Level 3.2 MG/DL (2.5-4.9) Magnesium Level 2.0 MG/DL (1.5-2.5) Total Bilirubin 0.2 MG/DL (0.2-1.0) Aspartate Amino Transf 110 U/L (15-37) (AST/SGOT) Alanine Aminotransferase 108 U/L (12-78) (ALT/SGPT) Alkaline Phosphatase 173 U/L (45-117) Total Protein 6.2 GM/DL (6.4-8.2) Albumin 2.0 GM/DL (3.4-5.0) Phenytoin (Dilantin) Level 18.0 MCG/ML (10.0-20.0) Vancomycin Level Trough 12.7 MCG/ML (5.0-10.0) Hepatitis A IgM Antibody NEGATIVE (NEGATIVE) Hepatitis B Surface Antigen NEGATIVE (NEGATIVE) Hepatitis B Core IgM Antibody NEGATIVE (NEGATIVE) Hepatitis C Antibody NEGATIVE (NEGATIVE) Blood Gas Puncture Site RT RADIAL Blood Gas Patient Temperature 98.6 Blood Gas HCO3 19 mmol/L (22-26) Blood Gas Base Excess -5.4 mmol/L (-2-2) Blood Gas Oxygen Saturation 97 % (90-100) Arterial Blood pH 7.39 (7.380-7.420) Arterial Blood Partial 31 mmHg (38-42) Pressure CO2 Arterial Blood Partial 174 mmHg Pressure O2 (61-120) Arterial Blood Oxygen Content 11.5 Vol % (12.0-20.0) Arterial Blood 1.2 % (0-4) Carboxyhemoglobin Arterial Blood Methemoglobin 1.2 % (0-2) Blood Gas Hemoglobin 8.2 G/DL (12.0-16.0) Oxygen Delivery Device VENTILATOR Blood Gas Ventilator Setting CPAP [id number] Blood Gas Inspired Oxygen 35 % Test 04/19/17 04/20/17 13:40 03:20 Ammonia 27 MCMOL/L (11-32) White Blood Count 9.4 TH/MM3 (4.0-11.0) Red Blood Count 2.46 MIL/MM3 (4.50-5.90) Hemoglobin 7.6 GM/DL (13.0-17.0) Hematocrit 22.5 % (39.0-51.0) Mean Corpuscular Volume 91.5 FL (80.0-100.0) Mean Corpuscular Hemoglobin 30.9 PG (27.0-34.0) Mean Corpuscular Hemoglobin 33.8 % Concent (32.0-36.0) Red Cell Distribution Width 19.2 % (11.6-17.2) Platelet Count 120 TH/MM3 (150-450) Mean Platelet Volume 7.8 FL (7.0-11.0) Neutrophils (%) (Auto) 85.0 % (16.0-70.0) Lymphocytes (%) (Auto) 10.6 % (9.0-44.0) Monocytes (%) (Auto) 4.3 % (0.0-8.0) Eosinophils (%) (Auto) 0.0 % (0.0-4.0) Basophils (%) (Auto) 0.1 % (0.0-2.0) Neutrophils # (Auto) 7.9 TH/MM3 (1.8-7.7) Lymphocytes # (Auto) 1.0 TH/MM3 (1.0-4.8) Monocytes # (Auto) 0.4 TH/MM3 (0-0.9) Eosinophils # (Auto) 0.0 TH/MM3 (0-0.4) Basophils # (Auto) 0.0 TH/MM3 (0-0.2) CBC Comment DIFF FINAL Differential Comment Sodium Level 146 MEQ/L (136-145) Potassium Level 4.0 MEQ/L (3.5-5.1) Chloride Level 115 MEQ/L (98-107) Carbon Dioxide Level 22.5 MEQ/L (21.0-32.0) Anion Gap 9 MEQ/L (5-15) Blood Urea Nitrogen 24 MG/DL (7-18) Creatinine 1.41 MG/DL (0.60-1.30) Estimat Glomerular Filtration 59 ML/MIN (>89) Rate Random Glucose 126 MG/DL (74-106) Calcium Level 7.4 MG/DL (8.5-10.1) Protein Corrected Calcium 8.1 MG/DL (8.5-10.1) Phosphorus Level 2.5 MG/DL (2.5-4.9) Magnesium Level 2.0 MG/DL (1.5-2.5) Total Bilirubin 0.2 MG/DL (0.2-1.0) Aspartate Amino Transf 121 U/L (15-37) (AST/SGOT) Alanine Aminotransferase 111 U/L (12-78) (ALT/SGPT) Alkaline Phosphatase 157 U/L (45-117) Total Protein 5.9 GM/DL (6.4-8.2) Albumin 2.0 GM/DL (3.4-5.0) Phenytoin (Dilantin) Level 17.8 MCG/ML (10.0-20.0) (Vida Morales) Result Diagram: 04/20/17 0320 04/20/17 0320 Imaging Last Impressions Chest CT 04/19/17 0000 Signed Impressions: Service Date/Time: Wednesday, April 19, 2017 17:19 - CONCLUSION: 1. Posterior bibasilar patchy opacities consistent with atelectasis and/or mild infiltrates. Clinical correlation is recommended. 2. Tiny bilateral pleural effusions. 3. Cardiomegaly and coronary artery calcifications. 4. Degenerative changes and scoliosis of the thoracic spine. Rolando Rowe MD Abdomen/Pelvis CT 04/19/17 0000 Signed Impressions: Service Date/Time: Wednesday, April 19, 2017 17:16 - CONCLUSION: 1. Tiny bilateral pleural effusions with adjacent patchy infiltrates consistent with atelectasis and/or pneumonia. Clinical correlation is recommended. 2. No acute intraabdominal process. 3. Cardiomegaly and coronary artery calcifications. 4. Degenerative changes and scoliosis of the thoracolumbar spine. Rolando Rowe MD Chest X-Ray 04/18/17 0000 Signed Impressions: Service Date/Time: Tuesday, April 18, 2017 04:03 - CONCLUSION: No significant change Boubacar Pearl MD Head CT 04/17/17 1212 Signed Impressions: Service Date/Time: Monday, April 17, 2017 14:38 - CONCLUSION: Slight atrophic and small vessel ischemic changes without any evidence for acute hemorrhage or mass effect. Omer Urena MD Abdomen Ultrasound 04/17/17 0000 Signed Impressions: Service Date/Time: Monday, April 17, 2017 15:56 - CONCLUSION: 1. Nonvisualization of the common bile duct, pancreas and spleen. 2. Simple cyst left kidney. Dariusz Louis MD Procedures * 04/18/17 -central line placement * 04/17/17 -endotracheal intubation . (Vida Morales) Patient/Family Conference Present at Family Conference: Son Chad Rivera Jr. Family Conference Time (mins): 38 Family Conference Location: Telephone Issues Discussed: * Palliative care role, purpose, approach * Additional medical, psychosocial, and spiritual history * Patients general health, functional status, and cognitive changes in the months leading up to the current hospitalization * Family understanding of the current medical problems -ventilator-dependent respiratory failure, aspiration pneumonia, acute on chronic kidney failure, moderate to severe encephalopathy. * Family understanding of prognosis -guarded given multiple chronic comorbidities, acute events, physical deconditioning and advanced age. * Patients goals of care as best understood from advance directives and/or conversations and/or values * Current medical treatment options and benefits/burdens of those options * Questions answered to the best of my ability * Palliative care contact information provided * Risk, benefits and limitations of CPR given patient's clinical condition . (Vida Morales) Assessment and Plan Disease Oriented Problem List: (1) Acute respiratory failure (2) Encephalopathy (3) Aspiration pneumonia (4) Seizures (5) Acute kidney injury (6) Hypothermia (7) Dementia with behavioral disturbance Symptom Scale: (1) Shortness of breath 0-10 Scale: Unable to quantify Comment: Pneumonia, ventilator dependent respiratory failure. Remains orally intubated on mechanical ventilation. (2) Debility 0-10 Scale: Unable to quantify Pertinent Non-Medical Issues Psychosocial: The patient was born and raised in [facility]. He was for about 20 years but for many years. He had 4 sons and 2 daughters, one daughter is . Spiritual: No sabianist affiliation. Legal: Power of family law attorney completed. Ethical issues impacting care: Patient unable to participate in medical decision -making, not capacitated secondary to dementia. HCP are his children. . Important Contacts Son Chad RiveraJr who resides in [place] Daughter Suzi Ortiz who resides in the [facility] . . Prognosis Mr. Rivera is a 76 y/o male known to palliative care with a medical history of dementia, atrial fibrillation on anticoagulation, seizures, hypertension, schizophrenia and chronic kidney disease. Clinical course complicated by ventilator dependent respiratory failure, aspiration pneumonia, hypothermia and acute on chronic kidney failure. Patient at a very high risk for further complications, continue decline and . Prognosis is guarded given multiple chronic comorbidities, acute events, physical deconditioning and advanced age. . Code Status: Full Code Plan * CODE STATUS: Full code. Risks, benefits and limitations of CPR has been discussed with paty Bonilla given patient's clinical condition. * HEALTHCARE DECISION-MAKING: Because of the patient's dementia, seizures, intubation/mech vent, he is incapacitated to make his own health care decisions and is not expected to regain capacity. In the absence of advance directives and as per [place] law, proxy decision-making falls to the majority patient's children. His son Chad and daughter Suzi have been appointed during previous acute hospitalization by the other children as co-healthcare proxy decision making (other children declining to participate in medical decision- making). . * GOALS OF CARE: Family electing to continue aggressive management to include full code at this time. Family has declined PEG tube placement during past acute admissions. Pending brain MRI for continuation of goals of care discussion. * SYMPTOMS: = Shortness of breath, secondary to ventilator dependent respiratory failure, aspiration pneumonia. Remains orally intubated on mechanical ventilation. = Debility, patient resident of long-term facility. Requiring assistance with all ADLs. Likely to continue to worsen. * Case discussed with bedside JARED Dumas. * Palliative care contact information has been provided to patient's family. * Palliative care will continue to follow-up for further clarifications of goals of care as patient's clinical course continues to evolve. . (Vida Morales) Time Spent Total Floor Time (mins): 65 (Total time to include review and summarization of available medical records to include multiple prior hospitalizations and ED visits, physical exam, telephone conversation to patient's son Chad to discussed goals of care and case discussion with bedside JARED Dumas.) >50% Counseling/Coord of Care: Yes (Vida Morales) Thank you for the opportunity to participate in the care of Mr. Rivera. (Vida Morales) Attestation To help prompt me to consider important information that might be impacting today's encounter and assessment, information from prior notes written by myself or my colleagues may have been "brought forward" into today's note. My signature on this note, however, is an attestation that I personally performed the exam, history, and/or decision-making noted today, and, unless otherwise indicated, the interactions with patient, family, and staff as well as the review of records all occurred today. I also attest that the listed assessment and stated plan reflect my best clinical judgment today based on the combination of historical information, prior notes, and today's exam/ interactions. When time spent is documented, it refers only to time spent today by the signer, or if indicated, combined time spent today by collaborating physician/nurse practitioner. (Vida Morales) Collaborating MD Comments Patient was discussed with AWNING MAKER. Agreeable to assessment and plan. (Macario Salguero MD) Vida Morales Apr 20, 2017 15:36 Macario Salguero MD Apr 21, 2017 11:58
[2017-04-20] MEDS ORDERED: cefTAZidime INJ 2,000 MG in SODIUM CHLORIDE 0.9% INJ 100 ML IV SCH (17:15)
[2017-04-20] MEDS ORDERED: ACYCLOVIR INJ 350 MG in SODIUM CHLORIDE 0.9% INJ 50 ML IV SCH (17:15)
--- NOTE | 2017-04-20 17:25 | HHI.PR ---
Addendum to Inpatient Note Addendum Reason: Additional Documentation Additional Information Recd call from RN for positive Cdiff Recd call from . MRI findings concerning for edema ? encephalitis. He informs me that would like to hold off on LP till after results for MRA brain and MRV brain available due to risk for IC bleeding. Antimicrobial regimen reviewed with . Antibiotic plan as below: 1. Acyclovir: d.w Pharmacist in IV room to adjust dose to 10 mg/kg IV q8hrs 2. Continue Vanco target 15-20 3. DC Zosyn 4. Start Ceftazidime q8hrs 5. Start oral flagyl for Cdiff as well as anaerobic coverage. Critically ill. Total time spent today in excess of 60 mins. Critical thinking and decision making. Sana Kumar MD Apr 20, 2017 17:25
[2017-04-20] MEDS: SODIUM CHLOR 0.9% IV SCH (18:11)
[2017-04-20] MEDS: ACYCLOVIR IV SCH (18:11)
[2017-04-20] MEDS: metroNIDAZOLE 500 MG TAB PO SCH ×2 (18:11→20:42)
[2017-04-20] MEDS: cefTAZidime INJ 2,000 MG in SODIUM CHLORIDE 0.9% INJ 100 ML IV SCH (20:43)
[2017-04-21] VITALS (31 sets, daily range): BP systolic 91–159; BP diastolic 54–82; PULSE 64–93; RESP 15–16; TEMP 96.7–100.7; O2SAT 96–100
[2017-04-21] MEDS: RESP: ALBUTEROL 2.5 MG/IPRATROPIUM 0.5 MG NEB (SCH) INH ×3 (03:30→15:54)
[2017-04-21] MEDS: CHLORHEXIDINE GLUCONATE 2 % 1 PACK (2 CLOTHS) TOP SCH (04:00)
[2017-04-21] MEDS: INSULIN NovoLIN REGULAR SUPPLEMENTAL SCALE SQ SCH ×6 (04:00→20:00)
[2017-04-21 04:44] LABS: BICARBONATE 21.9 MEQ/L (21.0-32.0); POTASSIUM 3.6 MEQ/L (3.5-5.1)
[2017-04-21 04:47] LABS: AUTOMATED NEUTROPHIL # 7.1 TH/MM3 (1.8-7.7); EOSINOPHIL % 0.1 % (0.0-4.0); LYMPH % 10.8 % (9.0-44.0); LYMPHOCYTE # 0.9 TH/MM3 (1.0-4.8); MEAN CELL VOLUME 92.6 FL (80.0-100.0); MEAN CORPUSCULAR HEMOGLOBIN 31.7 PG (27.0-34.0); MEAN CORPUSCULAR HGB CONC 34.2 % (32.0-36.0); MONO % 5.2 % (0.0-8.0); NEUT % 83.9 % (16.0-70.0); PLATELET COUNT 108 TH/MM3 (150-450); RED BLOOD COUNT 2.25 MIL/MM3 (4.50-5.90); RED CELL DISTRIBUTION WIDTH 18.5 % (11.6-17.2); WHITE BLOOD COUNT 8.5 TH/MM3 (4.0-11.0)
[2017-04-21 05:02] LABS: CALCIUM-PROTEIN CORRECTED 8.2 MG/DL (8.5-10.1); FREE T3 0.69 PG/ML (2.18-3.98); FREE T4 0.62 NG/DL (0.76-1.46); TOTAL BILIRUBIN ADULT 0.2 MG/DL (0.2-1.0)
[2017-04-21 05:14] LABS: HEMO FLAGS DIFF FINAL
[2017-04-21 05:22] LABS: HEMATOCRIT 20.8 % (39.0-51.0)
[2017-04-21] MEDS: PHENYTOIN INJ 100 MG/2 ML VIAL IV SCH ×3 (05:50→21:28)
[2017-04-21] MEDS: LEVOTHYROXINE SODIUM 50 MCG TAB PO SCH (05:50)
[2017-04-21] MEDS: SODIUM CHLOR 0.9% IV SCH ×2 (05:50→17:07)
[2017-04-21] MEDS: metroNIDAZOLE 500 MG TAB PO SCH ×3 (05:50→21:28)
[2017-04-21] MEDS: ACYCLOVIR IV SCH ×2 (05:50→17:07)
[2017-04-21] MEDS: FREE WATER G-TUBE SCH ×2 (08:00→15:28)
[2017-04-21] MEDS: cefTAZidime INJ 2,000 MG in SODIUM CHLORIDE 0.9% INJ 100 ML IV SCH ×2 (08:00→21:30)
[2017-04-21] MEDS: LACTULOSE SYRUP 20 GM/30 ML CUP PO SCH ×2 (08:53→21:28)
[2017-04-21] MEDS: DEXTROSE 5% IN WATE 1000ML INJ 1,000 ML IV SCH ×2 (08:53→21:31)
[2017-04-21] MEDS: PANTOPRAZOLE SODIUM 40 MG VIAL IV SCH ×2 (08:54→21:29)
[2017-04-21] MEDS: HYDROCORTISONE SOD SUCCINATE 100 MG VIAL IV PUSH SCH ×2 (08:54→15:28)
[2017-04-21] MEDS: DOCUSATE SODIUM 50 MG/SENNA 8.6 MG TAB PO SCH ×2 (08:54→21:00)
--- NOTE | 2017-04-21 08:58 | HHI.PR ---
Review/Management Daily Summary 04/[address] Biggs yest reviewed mri brain dx unclear but mri brain abnormal, doubt of herpes encephalitis continue acyclovir if mr venous shows thrombosis then consider anticoag but has anemia!!! if mr venous negative, should proceed with LP for routine studies and hsv pcr Subjective Subjective Comments No acute events reported Active Medications Current Medications Medications (Trade) Dose Ordered Sig/Miquel Route Start Time Stop Time Status Last Admin (NS Flush) 2 ml UNSCH PRN IV FLUSH 04/17/17 12:15 04/17/17 15:06 (Heparin Inj) 5,000 units Q12H SQ 04/17/17 15:30 Hold 04/20/17 15:25 Miscellaneous Information 1 [id number] XX 04/17/17 15:30 (Chlorhexidine 2% Cloth) 3 pack Taper DAILY@04 TOP 04/18/17 04:00 04/14/18 03:59 04/21/17 04:00 (Chlorhexidine 2% Cloth) 3 pack UNSCH PRN TOP 04/17/17 15:30 (Ramona-Colace) 1 tab BID PO 04/17/17 21:00 04/20/17 20:42 (Milk Of Magnesia Liq) 30 ml Q12H PRN PO 04/17/17 15:30 (Senokot) 17.2 mg Q12H PRN PO 04/17/17 15:30 (Dulcolax Supp) 10 mg DAILY PRN RECTAL 04/17/17 15:30 (Lactulose Liq) 30 ml DAILY PRN PO 04/17/17 15:30 (Synthroid) 50 mcg DAILY@0600 PO 04/17/17 15:30 04/21/17 05:50 (D50w (Vial) Inj) 50 ml UNSCH PRN IV 04/17/17 15:30 (Glucagon Inj) 1 mg UNSCH PRN OTHER 04/17/17 15:30 Insulin Human Regular 1 1 Q4HR SQ 04/17/17 16:00 04/20/17 11:59 Midazolam HCl 100 ml @ 0 mls/hr TITRATE IV 04/17/17 15:30 04/20/17 02:08 Pharmacy Profile Note 0 ml @ 0 mls/hr UNSCH OTHER 04/17/17 15:30 Vancomycin HCl 1000 mg/Sodium Chloride 250 ml @ 250 mls/hr Q24H IV 04/18/17 13:00 04/20/17 12:05 (Levophed-Dextrose Drip) 250 ml @ 0 mls/hr TITRATE IV 04/17/17 23:00 04/18/17 17:55 Terbutaline Sulfate 1 mg 1 mg UNSCH PRN SQ 04/17/17 23:00 Potassium Chloride 100 ml @ 50 mls/hr Q2H PRN IV 04/18/17 07:30 (KCl 20 Meq Premix Inj) 100 ml @ 50 mls/hr Q2H PRN IV 04/18/17 07:30 Potassium Bicarb/ Potassium Chloride 50 meq 50 meq UNSCH PRN PO 04/18/17 07:30 Potassium Chloride 100 ml @ 25 mls/hr UNSCH PRN IV 04/18/17 07:30 Potassium Chloride 100 ml @ 50 mls/hr Q2H PRN IV 04/18/17 07:30 04/19/17 07:53 (Magnesium Sulfate Inj/NS Inj) 100 ml @ 50 mls/hr UNSCH PRN IV 04/18/17 07:30 Magnesium Oxide 800 mg 800 mg UNSCH PRN PO 04/18/17 07:30 (Magnesium Sulfate Inj/NS Inj) 100 ml @ 50 mls/hr UNSCH PRN IV 04/18/17 07:30 Potassium Phosphate 2000 mg 2,000 mg Q4H PRN PO 04/18/17 07:30 (Sodium Phosphate Inj/NS 250 ml Inj) 250 ml @ 42 mls/hr UNSCH PRN IV 04/18/17 07:30 04/18/17 10:40 Potassium Phosphate 2000 mg 2,000 mg UNSCH PRN PO/TUBE 04/18/17 07:30 Potassium Phosphate 30 mmol/ Sodium Chloride 260 ml @ 42 mls/hr UNSCH PRN IV 04/18/17 07:30 (D5W 1000 ml Inj) 1,000 ml @ 84 mls/hr [id number] IV 04/18/17 07:30 04/20/17 18:13 (Free Water) 250 ml Q8H G-TUBE 04/18/17 08:00 04/20/17 23:58 (SoluCORTEF INJ) 100 mg Q8H IV PUSH 04/18/17 08:00 04/20/17 23:59 (Lactulose Liq) 15 ml BID PO 04/19/17 14:00 04/20/17 20:42 Miscellaneous Information SPECIFIC LAB TO BE SORIN... 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) Review of Systems All other ROS: ROS reviewed as documented in chart Exam I&O / VS 04/20/17 04/20/17 04/21/17 14:59 22:59 06:59 Intake Total 1689 ml 2449 ml Output Total 600 ml 2000 ml Balance 1089 ml 449 ml Intake Oral 0 ml IV Total 1203 ml 1398 ml Tube Feeding 286 ml 551 ml Other 200 ml 500 ml Output Urine Total 500 ml 1300 ml Stool Total 100 ml 700 ml Gastric Drainage Total 0 ml # Bowel Movements 3 Vital Signs Date Time Temp Pulse Resp B/P Pulse Ox O2 Delivery O2 Flow Rate FiO2 04/21/17 08:04 99 35 04/21/17 05:41 35 04/21/17 05:41 82 04/21/17 04:30 99.0 83 16 104/56 99 04/21/17 04:15 99.0 84 16 97/54 99 04/21/17 04:06 98 35 04/21/17 04:00 99.0 84 16 100/58 98 04/21/17 03:45 99.0 83 16 92/55 98 04/21/17 03:30 98.8 81 16 93/54 98 04/21/17 03:00 98.6 83 16 91/54 98 04/21/17 02:30 98.2 80 16 103/56 99 04/21/17 02:00 82 04/21/17 02:00 98.1 85 15 129/68 100 04/21/17 01:30 97.7 81 16 131/67 99 04/21/17 01:27 99 35 04/21/17 01:00 97.7 84 16 138/68 98 04/21/17 00:30 97.5 78 16 114/63 98 04/21/17 00:15 97.5 78 16 107/55 98 04/21/17 00:00 35 04/21/17 00:00 83 04/21/17 00:00 97.5 79 16 119/62 99 04/20/17 23:30 97.2 84 20 130/63 99 04/20/17 23:00 97.2 74 16 97/56 99 04/20/17 22:30 97.0 79 16 97/56 99 04/20/17 22:00 78 04/20/17 22:00 97.0 79 16 107/59 99 04/20/17 21:30 96.6 77 17 128/66 98 04/20/17 21:21 98 35 04/20/17 21:00 96.4 79 16 126/68 98 04/20/17 20:30 96.3 76 16 124/69 98 04/20/17 20:00 74 04/20/17 20:00 98.8 76 16 118/64 98 04/20/17 20:00 35 04/20/17 18:00 68 04/20/17 16:00 96.5 68 16 123/67 100 04/20/17 16:00 68 04/20/17 16:00 35 04/20/17 15:47 99 35 04/20/17 14:00 73 04/20/17 13:00 100 60 04/20/17 12:00 35 04/20/17 12:00 96.8 73 16 153/73 100 04/20/17 12:00 73 04/20/17 11:27 98 35 04/20/17 10:00 77 04/20/17 09:18 100 35 04/20/17 09:13 96 35 General: No acute distress Eye: EOMI Cardiology: Normal rate Objective Micro and Labs Laboratory Tests Test 04/20/17 04/21/17 09:30 04:00 Stool C. difficile Toxin (PCR) POSITIVE Stl C. difficile Toxin PRESUMPTIVE Epiderm 027 POSITIVE White Blood Count 8.5 Red Blood Count 2.25 Hemoglobin 7.1 Hematocrit 20.8 Mean Corpuscular Volume 92.6 Mean Corpuscular Hemoglobin 31.7 Mean Corpuscular Hemoglobin 34.2 Concent Red Cell Distribution Width 18.5 Platelet Count 108 Mean Platelet Volume 8.3 Neutrophils (%) (Auto) 83.9 Lymphocytes (%) (Auto) 10.8 Monocytes (%) (Auto) 5.2 Eosinophils (%) (Auto) 0.1 Basophils (%) (Auto) 0.0 Neutrophils # (Auto) 7.1 Lymphocytes # (Auto) 0.9 Monocytes # (Auto) 0.4 Eosinophils # (Auto) 0.0 Basophils # (Auto) 0.0 CBC Comment DIFF FINAL Differential Comment Sodium Level 145 Potassium Level 3.6 Chloride Level 113 Carbon Dioxide Level 21.9 Anion Gap 10 Blood Urea Nitrogen 23 Creatinine 1.19 Estimat Glomerular Filtration 72 Rate Random Glucose 129 Calcium Level 7.3 Protein Corrected Calcium 8.2 Total Bilirubin 0.2 Aspartate Amino Transf 128 (AST/SGOT) Alanine Aminotransferase 115 (ALT/SGPT) Alkaline Phosphatase 165 Total Protein 5.4 Albumin 1.9 Free Thyroxine 0.62 Free Triiodothyronine (T3) 0.69 pg/dL Thyroid Stimulating Hormone 3.260 3rd Gen Date/Time Procedure Status Source Growth 04/17/17 12:25 Urine Culture - Final Complete Urine Catheterized Urine NO GROWTH IN 48 HOURS. 04/17/17 12:25 Legionella Antigen - Final Complete Urine Catheterized Urine PRESUMPTIVE NEGATIVE FOR LEGIONELLA P... 04/17/17 12:25 Streptococcus pneumoniae Antigen (M - Final Complete Urine Catheterized Urine PRESUMPTIVE NEGATIVE FOR STREPTOCOCCU... 04/17/17 12:20 Aerobic Blood Culture - Preliminary Resulted Blood Peripheral NO GROWTH IN 3 DAYS 04/17/17 12:20 Anaerobic Blood Culture - Preliminary Resulted Blood Peripheral NO GROWTH IN 3 DAYS Dixon Rasmussen MD Apr 21, 2017 08:58
[2017-04-21] MEDS ORDERED: PHARMACY ORDERED LAB ONE (12:45)
[2017-04-21] MEDS: VANCOMYCIN INJ 1,000 MG in SODIUM CHLOR 0.9% 250 ML INJ 250 ML IV SCH (13:15)
--- NOTE | 2017-04-21 13:33 | HHI.HCPN ---
Reason for visit a. To assist with evaluation and management of symptoms including: Shortness of breath and debility. b. To assist medical decision maker(s) with: better understanding of current medical conditions; weighing benefits/burdens of medical treatment options; making medical treatment decisions. . Subjective/Interval History Mr. Rivera is a 76 y/o male known to palliative care with a medical history of dementia, atrial fibrillation on anticoagulation, seizures, hypertension, schizophrenia and chronic kidney disease. Patient presented to ED on 04/17/17 via EMS for evaluation of altered mental status. He was intubated for airway protection and transferred to ICU for further management. Palliative care has been consulted for further clarifications of goals of care given patient's multiple comorbidities and current clinical condition. MRI of the brain 04/20/17 revealing cortical edema. Infectious disease and neurology following. Pending MRA and MRV of the brain and lumbar puncture if negative scan to rule out venous infarct vs encephalitis. Patient seen in ICU, he remains orally intubated on mechanical ventilation. Unresponsive to verbal or tactile stimuli. Currently on Versed. Patient slightly hypothermic, most recent temperature 97.3. Currently on a bear hugger. Stable hemodynamically. 35% FiO2, oxygen saturation in the high 90s. Hemoglobin 7.1, no signs of acute bleeding. Telephone conversation with patient's son Chad Rivera. Medical update provided. Reviewed MRI of the brain results and rationale for further testing. Shared concerns of patient's clinical condition, guarded prognosis given multiple chronic comorbidities, acute events, physical deconditioning and advanced age. Goals of care aggressive at this time. Son receptive to continue goals of care conversation. Son appreciative of my telephone call today. Case discussed with bedside RN Rusty. . Family/friend interactions See interval note. . Advance Directives Durable Power of Ruffling Machine Operator: Copy in medical record Advance Directive Specifics Date completed: 05/04/2014 -- THIS IS A [employer] [place] [employer] POWER OF SUPPLY CHAIN CONSULTANT DOCUMENT. IT DOES NOT REFER TO HEALTH CARE DECISION MAKING. Financial decision making is given to Chad Rivera. Health Care Surrogate(s): During previous hospitalization, all available children were previously contacted by palliative care. All have deferred health care decision making to two of the children Chad and Suzi as co-HCP. * Chad Rivera (son) who lives in [place] [phone] * Suziandrés Ortiz (daughter) who lives in [facility] [place] [phone] . Documented care wishes: No living will completed. During the previous hospitalization, the family continued to want aggressive care, including intubation for some number of days. Significant change in goals: Goals of care remain unchanged. Continue current aggressive management to include full code. . Objective Vital Signs Date Time Temp Pulse Resp B/P Pulse Ox O2 Delivery O2 Flow Rate FiO2 04/21/17 12:15 99 35 04/21/17 12:00 97.3 68 16 159/82 99 04/21/17 12:00 35 04/21/17 12:00 75 04/21/17 10:00 72 04/21/17 08:04 99 35 04/21/17 08:00 97.1 78 16 110/57 99 04/21/17 08:00 35 04/21/17 08:00 77 04/21/17 05:41 35 04/21/17 05:41 82 04/21/17 04:30 99.0 83 16 104/56 99 04/21/17 04:15 99.0 84 16 97/54 99 04/21/17 04:06 98 35 04/21/17 04:00 99.0 84 16 100/58 98 04/21/17 03:45 99.0 83 16 92/55 98 04/21/17 03:30 98.8 81 16 93/54 98 04/21/17 03:00 98.6 83 16 91/54 98 04/21/17 02:30 98.2 80 16 103/56 99 04/21/17 02:00 82 04/21/17 02:00 98.1 85 15 129/68 100 04/21/17 01:30 97.7 81 16 131/67 99 04/21/17 01:27 99 35 04/21/17 01:00 97.7 84 16 138/68 98 04/21/17 00:30 97.5 78 16 114/63 98 04/21/17 00:15 97.5 78 16 107/55 98 04/21/17 00:00 35 04/21/17 00:00 83 04/21/17 00:00 97.5 79 16 119/62 99 04/20/17 23:30 97.2 84 20 130/63 99 04/20/17 23:00 97.2 74 16 97/56 99 04/20/17 22:30 97.0 79 16 97/56 99 04/20/17 22:00 78 04/20/17 22:00 97.0 79 16 107/59 99 04/20/17 21:30 96.6 77 17 128/66 98 04/20/17 21:21 98 35 04/20/17 21:00 96.4 79 16 126/68 98 04/20/17 20:30 96.3 76 16 124/69 98 04/20/17 20:00 74 04/20/17 20:00 98.8 76 16 118/64 98 04/20/17 20:00 35 04/20/17 18:00 68 04/20/17 16:00 96.5 68 16 123/67 100 04/20/17 16:00 68 04/20/17 16:00 35 04/20/17 15:47 99 35 04/20/17 14:00 73 Intake & Output 04/21/17 04/21/17 07:00 19:00 Intake Total 2449 ml Output Total 2000 ml Balance 449 ml Intake Oral 0 ml IV Total 1398 ml Tube Feeding 551 ml Other 500 ml Output Urine Total 1300 ml Stool Total 700 ml Gastric Drainage Total 0 ml Physical Exam CONSTITUTIONAL/GENERAL: This is an elderly patient in no apparent distress. Orally intubated on mechanical ventilation. TUBES/LINES/DRAINS: ETT, OG, central line to left chest, Naik catheter, rectal tube, bilateral soft wrist restraints, SCDs. SKIN: No jaundice, rashes, or lesions. Ecchymoses on upper extremities. No wounds seen anteriorly. Not diaphoretic. HEAD: Atraumatic. Normocephalic. EYES: No scleral icterus. No injection or drainage. ENT: Unable to evaluate hearing secondary to clinical condition. Nose without bleeding or purulent drainage. Moist oral mucosa. NECK: Trachea midline. Supple. CARDIOVASCULAR: Regular rate and rhythm. Peripheral pulses symmetric. RESPIRATORY/CHEST: Symmetric, unlabored respirations. Orally intubated on mechanical ventilation. Clear, diminished breath sounds. GASTROINTESTINAL: Abdomen large, round, soft. No guarding. Bowel sounds present. GENITOURINARY: Without palpable bladder distension. Naik catheter in place. MUSCULOSKELETAL: Extremities without clubbing, cyanosis. Edema to bilateral hands. NEUROLOGICAL: Unresponsive to verbal or tactile stimuli. Not following any commands. On Versed drip. PSYCHIATRIC: Unable to evaluate secondary to clinical condition. Appears calm. . Diagnostic Tests Laboratory Laboratory Tests Test 04/18/17 04/18/17 04/19/17 04/19/17 17:10 17:30 04:30 13:00 Total Creatine Kinase 70 U/L (39-308) Troponin I LESS THAN 0.02 NG/ML (0.02-0.05) Hemoglobin 8.0 GM/DL 8.1 GM/DL (13.0-17.0) (13.0-17.0) Hematocrit 23.7 % 24.9 % (39.0-51.0) (39.0-51.0) White Blood Count 12.2 TH/MM3 (4.0-11.0) Red Blood Count 2.68 MIL/MM3 (4.50-5.90) Mean Corpuscular Volume 92.7 FL (80.0-100.0) Mean Corpuscular Hemoglobin 30.2 PG (27.0-34.0) Mean Corpuscular Hemoglobin 32.6 % Concent (32.0-36.0) Red Cell Distribution Width 19.4 % (11.6-17.2) Platelet Count 135 TH/MM3 (150-450) Mean Platelet Volume 7.8 FL (7.0-11.0) Neutrophils (%) (Auto) 85.2 % (16.0-70.0) Lymphocytes (%) (Auto) 11.2 % (9.0-44.0) Monocytes (%) (Auto) 3.4 % (0.0-8.0) Eosinophils (%) (Auto) 0.1 % (0.0-4.0) Basophils (%) (Auto) 0.1 % (0.0-2.0) Neutrophils # (Auto) 10.4 TH/MM3 (1.8-7.7) Lymphocytes # (Auto) 1.4 TH/MM3 (1.0-4.8) Monocytes # (Auto) 0.4 TH/MM3 (0-0.9) Eosinophils # (Auto) 0.0 TH/MM3 (0-0.4) Basophils # (Auto) 0.0 TH/MM3 (0-0.2) CBC Comment DIFF FINAL Differential Comment Sodium Level 148 MEQ/L (136-145) Potassium Level 3.3 MEQ/L (3.5-5.1) Chloride Level 117 MEQ/L (98-107) Carbon Dioxide Level 20.1 MEQ/L (21.0-32.0) Anion Gap 11 MEQ/L (5-15) Blood Urea Nitrogen 28 MG/DL (7-18) Creatinine 1.50 MG/DL (0.60-1.30) Estimat Glomerular Filtration 55 ML/MIN (>89) Rate Random Glucose 119 MG/DL (74-106) Calcium Level 7.3 MG/DL (8.5-10.1) Protein Corrected Calcium 7.8 MG/DL (8.5-10.1) Phosphorus Level 3.2 MG/DL (2.5-4.9) Magnesium Level 2.0 MG/DL (1.5-2.5) Total Bilirubin 0.2 MG/DL (0.2-1.0) Aspartate Amino Transf 110 U/L (15-37) (AST/SGOT) Alanine Aminotransferase 108 U/L (12-78) (ALT/SGPT) Alkaline Phosphatase 173 U/L (45-117) Total Protein 6.2 GM/DL (6.4-8.2) Albumin 2.0 GM/DL (3.4-5.0) Phenytoin (Dilantin) Level 18.0 MCG/ML (10.0-20.0) Vancomycin Level Trough 12.7 MCG/ML (5.0-10.0) Hepatitis A IgM Antibody NEGATIVE (NEGATIVE) Hepatitis B Surface Antigen NEGATIVE (NEGATIVE) Hepatitis B Core IgM Antibody NEGATIVE (NEGATIVE) Hepatitis C Antibody NEGATIVE (NEGATIVE) Test 04/19/17 04/19/17 04/20/17 04/20/17 13:03 13:40 03:20 09:30 Blood Gas Puncture Site RT RADIAL Blood Gas Patient Temperature 98.6 Blood Gas HCO3 19 mmol/L (22-26) Blood Gas Base Excess -5.4 mmol/L (-2-2) Blood Gas Oxygen Saturation 97 % (90-100) Arterial Blood pH 7.39 (7.380-7.420) Arterial Blood Partial 31 mmHg (38-42) Pressure CO2 Arterial Blood Partial 174 mmHg Pressure O2 (61-120) Arterial Blood Oxygen Content 11.5 Vol % (12.0-20.0) Arterial Blood 1.2 % (0-4) Carboxyhemoglobin Arterial Blood Methemoglobin 1.2 % (0-2) Blood Gas Hemoglobin 8.2 G/DL (12.0-16.0) Oxygen Delivery Device VENTILATOR Blood Gas Ventilator Setting CPAP [id number] Blood Gas Inspired Oxygen 35 % Ammonia 27 MCMOL/L (11-32) White Blood Count 9.4 TH/MM3 (4.0-11.0) Red Blood Count 2.46 MIL/MM3 (4.50-5.90) Hemoglobin 7.6 GM/DL (13.0-17.0) Hematocrit 22.5 % (39.0-51.0) Mean Corpuscular Volume 91.5 FL (80.0-100.0) Mean Corpuscular Hemoglobin 30.9 PG (27.0-34.0) Mean Corpuscular Hemoglobin 33.8 % Concent (32.0-36.0) Red Cell Distribution Width 19.2 % (11.6-17.2) Platelet Count 120 TH/MM3 (150-450) Mean Platelet Volume 7.8 FL (7.0-11.0) Neutrophils (%) (Auto) 85.0 % (16.0-70.0) Lymphocytes (%) (Auto) 10.6 % (9.0-44.0) Monocytes (%) (Auto) 4.3 % (0.0-8.0) Eosinophils (%) (Auto) 0.0 % (0.0-4.0) Basophils (%) (Auto) 0.1 % (0.0-2.0) Neutrophils # (Auto) 7.9 TH/MM3 (1.8-7.7) Lymphocytes # (Auto) 1.0 TH/MM3 (1.0-4.8) Monocytes # (Auto) 0.4 TH/MM3 (0-0.9) Eosinophils # (Auto) 0.0 TH/MM3 (0-0.4) Basophils # (Auto) 0.0 TH/MM3 (0-0.2) CBC Comment DIFF FINAL Differential Comment Sodium Level 146 MEQ/L (136-145) Potassium Level 4.0 MEQ/L (3.5-5.1) Chloride Level 115 MEQ/L (98-107) Carbon Dioxide Level 22.5 MEQ/L (21.0-32.0) Anion Gap 9 MEQ/L (5-15) Blood Urea Nitrogen 24 MG/DL (7-18) Creatinine 1.41 MG/DL (0.60-1.30) Estimat Glomerular Filtration 59 ML/MIN (>89) Rate Random Glucose 126 MG/DL (74-106) Calcium Level 7.4 MG/DL (8.5-10.1) Protein Corrected Calcium 8.1 MG/DL (8.5-10.1) Phosphorus Level 2.5 MG/DL (2.5-4.9) Magnesium Level 2.0 MG/DL (1.5-2.5) Total Bilirubin 0.2 MG/DL (0.2-1.0) Aspartate Amino Transf 121 U/L (15-37) (AST/SGOT) Alanine Aminotransferase 111 U/L (12-78) (ALT/SGPT) Alkaline Phosphatase 157 U/L (45-117) Total Protein 5.9 GM/DL (6.4-8.2) Albumin 2.0 GM/DL (3.4-5.0) Phenytoin (Dilantin) Level 17.8 MCG/ML (10.0-20.0) Stool C. difficile Toxin (PCR) POSITIVE (NEGATIVE) Stl C. difficile Toxin PRESUMPTIVE Epiderm 027 POSITIVE (NEGATIVE) Test 04/21/17 04:00 White Blood Count 8.5 TH/MM3 (4.0-11.0) Red Blood Count 2.25 MIL/MM3 (4.50-5.90) Hemoglobin 7.1 GM/DL (13.0-17.0) Hematocrit 20.8 % (39.0-51.0) Mean Corpuscular Volume 92.6 FL (80.0-100.0) Mean Corpuscular Hemoglobin 31.7 PG (27.0-34.0) Mean Corpuscular Hemoglobin 34.2 % Concent (32.0-36.0) Red Cell Distribution Width 18.5 % (11.6-17.2) Platelet Count 108 TH/MM3 (150-450) Mean Platelet Volume 8.3 FL (7.0-11.0) Neutrophils (%) (Auto) 83.9 % (16.0-70.0) Lymphocytes (%) (Auto) 10.8 % (9.0-44.0) Monocytes (%) (Auto) 5.2 % (0.0-8.0) Eosinophils (%) (Auto) 0.1 % (0.0-4.0) Basophils (%) (Auto) 0.0 % (0.0-2.0) Neutrophils # (Auto) 7.1 TH/MM3 (1.8-7.7) Lymphocytes # (Auto) 0.9 TH/MM3 (1.0-4.8) Monocytes # (Auto) 0.4 TH/MM3 (0-0.9) Eosinophils # (Auto) 0.0 TH/MM3 (0-0.4) Basophils # (Auto) 0.0 TH/MM3 (0-0.2) CBC Comment DIFF FINAL Differential Comment Sodium Level 145 MEQ/L (136-145) Potassium Level 3.6 MEQ/L (3.5-5.1) Chloride Level 113 MEQ/L (98-107) Carbon Dioxide Level 21.9 MEQ/L (21.0-32.0) Anion Gap 10 MEQ/L (5-15) Blood Urea Nitrogen 23 MG/DL (7-18) Creatinine 1.19 MG/DL (0.60-1.30) Estimat Glomerular Filtration 72 ML/MIN (>89) Rate Random Glucose 129 MG/DL (74-106) Calcium Level 7.3 MG/DL (8.5-10.1) Protein Corrected Calcium 8.2 MG/DL (8.5-10.1) Total Bilirubin 0.2 MG/DL (0.2-1.0) Aspartate Amino Transf 128 U/L (15-37) (AST/SGOT) Alanine Aminotransferase 115 U/L (12-78) (ALT/SGPT) Alkaline Phosphatase 165 U/L (45-117) Total Protein 5.4 GM/DL (6.4-8.2) Albumin 1.9 GM/DL (3.4-5.0) Free Thyroxine 0.62 NG/DL (0.76-1.46) Free Triiodothyronine (T3) 0.69 PG/ML pg/dL (2.18-3.98) Thyroid Stimulating Hormone 3.260 uIU/ML 3rd Gen (0.358-3.740) Result Diagram: 04/21/17 0400 04/21/17 0400 Microbiology Microbiology Date/Time Procedure Status Source Growth 04/21/17 09:00 Gram Stain Received Sputum Endotracheal Pending 04/21/17 09:00 Sputum Culture Received Sputum Endotracheal Pending Procedures * 04/18/17 -central line placement * 04/17/17 -endotracheal intubation . Assessment and Plan Disease Oriented Problem List: (1) Acute respiratory failure (2) Encephalopathy (3) Aspiration pneumonia (4) Seizures (5) Acute kidney injury (6) Hypothermia (7) Dementia with behavioral disturbance Symptom Scale: (1) Shortness of breath 0-10 Scale: Unable to quantify Comment: Pneumonia, ventilator dependent respiratory failure. Remains orally intubated on mechanical ventilation. (2) Debility 0-10 Scale: Unable to quantify Pertinent Non-Medical Issues Psychosocial: The patient was born and raised in [facility]. He was for about 20 years but for many years. He had 4 sons and 2 daughters, one daughter is . Spiritual: No jain affiliation. Legal: Power of collections attorney completed. Ethical issues impacting care: Patient unable to participate in medical decision -making, not capacitated secondary to dementia. HCP are his children. . Important Contacts Son Chad RiveraJr who resides in [place] Daughter Suzi Ortiz who resides in the [facility] . . Prognosis Mr. Rivera is a 76 y/o male known to palliative care with a medical history of dementia, atrial fibrillation on anticoagulation, seizures, hypertension, schizophrenia and chronic kidney disease. Clinical course complicated by ventilator dependent respiratory failure, aspiration pneumonia, hypothermia and acute on chronic kidney failure. Patient at a very high risk for further complications, continue decline and . Prognosis is guarded given multiple chronic comorbidities, acute events, physical deconditioning and advanced age. . Code Status: Full Code Plan * CODE STATUS: Full code. Risks, benefits and limitations of CPR has been previously discussed with paty Bonilla given patient's clinical condition. * HEALTHCARE DECISION-MAKING: Because of the patient's dementia, intubation/ mech vent, he is incapacitated to make his own health care decisions and is not expected to regain capacity. In the absence of advance directives and as per [place] law, proxy decision-making falls to the majority patient's children. His son Chad and daughter Suzi have been appointed during previous acute hospitalization by the other children as co-healthcare proxy decision making ( other children declining to participate in medical decision-making). . * GOALS OF CARE: Family electing to continue aggressive management to include full code at this time. Family has declined PEG tube placement during past acute admissions. * 04/21/17 -Telephone conversation with patient's son Chad Rivera. Medical update provided. Reviewed MRI of the brain results and rationale for further testing. Shared concerns of patient's clinical condition, guarded prognosis given multiple chronic comorbidities, acute events, physical deconditioning and advanced age. Goals of care aggressive at this time. Son receptive to continue goals of care conversation. * SYMPTOMS: = Shortness of breath, secondary to ventilator dependent respiratory failure, aspiration pneumonia. Remains orally intubated on mechanical ventilation. = Debility, patient resident of long-term facility. Requiring assistance with all ADLs. Likely to continue to worsen. * Case discussed with bedside RN Rusty. * Palliative care contact information has been provided to patient's family. * Palliative care will continue to follow-up for further clarifications of goals of care as patient's clinical course continues to evolve. . Time Spent Total Floor Time (mins): 26 (Total time to include review medical records, physical exam, telephone conversation with patient's son and case discussion with bedside JARED Ojeda.) >50% Counseling/Coord of Care: Yes Attestation To help prompt me to consider important information that might be impacting today's encounter and assessment, information from prior notes written by myself or my colleagues may have been "brought forward" into today's note. My signature on this note, however, is an attestation that I personally performed the exam, history, and/or decision-making noted today, and, unless otherwise indicated, the interactions with patient, family, and staff as well as the review of records all occurred today. I also attest that the listed assessment and stated plan reflect my best clinical judgment today based on the combination of historical information, prior notes, and today's exam/ interactions. When time spent is documented, it refers only to time spent today by the signer, or if indicated, combined time spent today by collaborating physician/nurse practitioner. Vida Morales Apr 21, 2017 13:33
--- NOTE | 2017-04-21 13:40 | HHI.GIFU ---
Subjective Remarks Patient is on a vent, no bleeding reported (DuniaOlivialaura CONTRERAS) Objective Vitals I&O Vital Signs Date Time Temp Pulse Resp B/P Pulse Ox O2 Delivery O2 Flow Rate FiO2 04/21/17 12:15 99 35 04/21/17 12:00 97.3 68 16 159/82 99 04/21/17 12:00 35 04/21/17 12:00 75 04/21/17 10:00 72 04/21/17 08:04 99 35 04/21/17 08:00 97.1 78 16 110/57 99 04/21/17 08:00 35 04/21/17 08:00 77 04/21/17 05:41 35 04/21/17 05:41 82 04/21/17 04:30 99.0 83 16 104/56 99 04/21/17 04:15 99.0 84 16 97/54 99 04/21/17 04:06 98 35 04/21/17 04:00 99.0 84 16 100/58 98 04/21/17 03:45 99.0 83 16 92/55 98 04/21/17 03:30 98.8 81 16 93/54 98 04/21/17 03:00 98.6 83 16 91/54 98 04/21/17 02:30 98.2 80 16 103/56 99 04/21/17 02:00 82 04/21/17 02:00 98.1 85 15 129/68 100 04/21/17 01:30 97.7 81 16 131/67 99 04/21/17 01:27 99 35 04/21/17 01:00 97.7 84 16 138/68 98 04/21/17 00:30 97.5 78 16 114/63 98 04/21/17 00:15 97.5 78 16 107/55 98 04/21/17 00:00 35 04/21/17 00:00 83 04/21/17 00:00 97.5 79 16 119/62 99 04/20/17 23:30 97.2 84 20 130/63 99 04/20/17 23:00 97.2 74 16 97/56 99 04/20/17 22:30 97.0 79 16 97/56 99 04/20/17 22:00 78 04/20/17 22:00 97.0 79 16 107/59 99 7/25/17 21:30 96.6 77 17 128/66 98 04/20/17 21:21 98 35 04/20/17 21:00 96.4 79 16 126/68 98 04/20/17 20:30 96.3 76 16 124/69 98 04/20/17 20:00 74 04/20/17 20:00 98.8 76 16 118/64 98 04/20/17 20:00 35 04/20/17 18:00 68 04/20/17 16:00 96.5 68 16 123/67 100 04/20/17 16:00 68 04/20/17 16:00 35 04/20/17 15:47 99 35 04/20/17 14:00 73 I/O 04/20/17 04/20/17 04/20/17 04/21/17 04/21/17 04/21/17 07:00 15:00 23:00 07:00 15:00 23:00 Intake Total 1425 ml 1689 ml 1057 ml 1392 ml Output Total 1200 ml 600 ml 1000 ml 1000 ml Balance 225 ml 1089 ml 57 ml 392 ml Intake Oral 0 ml 0 ml 0 ml IV Total 735 ml 1203 ml 736 ml 662 ml Tube Feeding 290 ml 286 ml 221 ml 330 ml Other 400 ml 200 ml 100 ml 400 ml Output Urine Total 1200 ml 500 ml 800 ml 500 ml Stool Total 100 ml 200 ml 500 ml Gastric Drainage Total 0 ml 0 ml # Bowel Movements 0 3 Laboratory Laboratory Tests Test 04/21/17 04:00 White Blood Count 8.5 Red Blood Count 2.25 Hemoglobin 7.1 Hematocrit 20.8 Mean Corpuscular Volume 92.6 Mean Corpuscular Hemoglobin 31.7 Mean Corpuscular Hemoglobin 34.2 Concent Red Cell Distribution Width 18.5 Platelet Count 108 Mean Platelet Volume 8.3 Neutrophils (%) (Auto) 83.9 Lymphocytes (%) (Auto) 10.8 Monocytes (%) (Auto) 5.2 Eosinophils (%) (Auto) 0.1 Basophils (%) (Auto) 0.0 Neutrophils # (Auto) 7.1 Lymphocytes # (Auto) 0.9 Monocytes # (Auto) 0.4 Eosinophils # (Auto) 0.0 Basophils # (Auto) 0.0 CBC Comment DIFF FINAL Differential Comment Sodium Level 145 Potassium Level 3.6 Chloride Level 113 Carbon Dioxide Level 21.9 Anion Gap 10 Blood Urea Nitrogen 23 Creatinine 1.19 Estimat Glomerular Filtration 72 Rate Random Glucose 129 Calcium Level 7.3 Protein Corrected Calcium 8.2 Total Bilirubin 0.2 Aspartate Amino Transf 128 (AST/SGOT) Alanine Aminotransferase 115 (ALT/SGPT) Alkaline Phosphatase 165 Total Protein 5.4 Albumin 1.9 Free Thyroxine 0.62 Free Triiodothyronine (T3) 0.69 pg/dL Thyroid Stimulating Hormone 3.260 3rd Gen Date/Time Procedure Status Source Growth 04/21/17 09:00 Gram Stain Received Sputum Endotracheal Pending 04/21/17 09:00 Sputum Culture Received Sputum Endotracheal Pending 04/17/17 12:25 Urine Culture - Final Complete Urine Catheterized Urine NO GROWTH IN 48 HOURS. 04/17/17 12:25 Legionella Antigen - Final Complete Urine Catheterized Urine PRESUMPTIVE NEGATIVE FOR LEGIONELLA P... 04/17/17 12:25 Streptococcus pneumoniae Antigen (M - Final Complete Urine Catheterized Urine PRESUMPTIVE NEGATIVE FOR STREPTOCOCCU... 04/17/17 12:20 Aerobic Blood Culture - Preliminary Resulted Blood Peripheral NO GROWTH IN 4 DAYS 04/17/17 12:20 Anaerobic Blood Culture - Preliminary Resulted Blood Peripheral NO GROWTH IN 4 DAYS Imaging Last Impressions Brain MRI 04/20/17 0000 Signed Impressions: Service Date/Time: Thursday, April 20, 2017 14:14 - CONCLUSION: Symmetric bilateral frontal and parietal high convexity cortical edema. Unusual appearance in which venous infarction and encephalitis should be considered among the differential possibilities. Boubacar Pearl MD Chest CT 04/19/17 0000 Signed Impressions: Service Date/Time: Wednesday, April 19, 2017 17:19 - CONCLUSION: 1. Posterior bibasilar patchy opacities consistent with atelectasis and/or mild infiltrates. Clinical correlation is recommended. 2. Tiny bilateral pleural effusions. 3. Cardiomegaly and coronary artery calcifications. 4. Degenerative changes and scoliosis of the thoracic spine. Rolando Rowe MD Abdomen/Pelvis CT 04/19/17 0000 Signed Impressions: Service Date/Time: Wednesday, April 19, 2017 17:16 - CONCLUSION: 1. Tiny bilateral pleural effusions with adjacent patchy infiltrates consistent with atelectasis and/or pneumonia. Clinical correlation is recommended. 2. No acute intraabdominal process. 3. Cardiomegaly and coronary artery calcifications. 4. Degenerative changes and scoliosis of the thoracolumbar spine. Rolando Rowe MD Chest X-Ray 04/18/17 0000 Signed Impressions: Service Date/Time: Tuesday, April 18, 2017 04:03 - CONCLUSION: No significant change Boubacar Pearl MD Head CT 04/17/17 1212 Signed Impressions: Service Date/Time: Monday, April 17, 2017 14:38 - CONCLUSION: Slight atrophic and small vessel ischemic changes without any evidence for acute hemorrhage or mass effect. Omer Urena MD Abdomen Ultrasound 04/17/17 0000 Signed Impressions: Service Date/Time: Monday, April 17, 2017 15:56 - CONCLUSION: 1. Nonvisualization of the common bile duct, pancreas and spleen. 2. Simple cyst left kidney. Dariusz Louis MD Physical Exam HEENT: normocephalic; atraumatic; no jaundice. CHEST: Chest is clear to auscultation and percussion. OETT to vent CARDIAC: Regular rate and rhythm with no murmur gallop or rubs. ABDOMEN: Soft, nondistended, nontender; no hepatosplenomegaly; bowel sounds are present in all four quadrants. EXTREMITIES: No clubbing, cyanosis, or edema. SKIN: Normal; no rash; no jaundice. CHIEF OPTOMETRY SERVICE: Sedated on a vent . (Cory Duque) Assessment and Plan Plan - Acute on chronic anemia- likely multi factorial, this could be chronic dz related, but GI bleed couldn't be excluded. No obvious bleeding reported, stools for Hemoccult Pending. Pradaxa on hold, currently on Heparin He was receiving TF through [facility] and tolerating well, currently on hold for possible extubation. No documented EGD/colonoscopy, Ct as below hgb today is 7.1 which is stable - C-diff- Stools came (+) for C-diff and Epid 027, he is on Vancomycin, Flagyl has been ordered by [facility] - Elevated LFTs- likely ischemic effect, he did have episodes of hypotension. hepatitis panel (-), will monitor for now. CT of abd/pelvis on (04/19/17) 1. Tiny bilateral pleural effusions with adjacent patchy infiltrates consistent with atelectasis and/or pneumonia. Clinical correlation is recommended. 2. No acute intraabdominal process. 3. Cardiomegaly and coronary artery calcifications. 4. Degenerative changes and scoliosis of the thoracolumbar spine. US on (04/17)---> Nonvisualization of the common bile duct, pancreas and spleen. 2. Simple cyst left kidney. - AMS- blood cx negative so far, urine cx negative - Acute respiratory failure- intubated by [facility] - Acute kidney injury - A-fib ( on Pradaxa, this is on hold now), dementia, DM, HTN per attending - Palliative care on the case, family wish for aggressive tx Plan: - TF per attending - No obvious bleeding, will hold off on EGD/colonoscopy for now - Stools (+) for c-diff, cont. Vancomycin - Cont. Flagyl - Monitor hh - Transfuse as needed - Await stools for Hemoccult - Monitor LFTs - Supportive care - Patient seen and examined by Dr. Perez and myself and this note is written on his behalf. (Cory Duque) Physician Comments Patient seen and examined Agree with above Continue with current supportive care Monitor labs (Emile Perez MD) Cory Duque Apr 21, 2017 13:40 Emile Perez MD Apr 21, 2017 20:13
--- NOTE | 2017-04-21 14:36 | HHI.CCPN ---
Subjective Remarks/Hospital Course The patient is a 76-year-old group home resident with a past medical history of hypothyroidism, hypertension, diabetes mellitus, dementia, seizure disorder, atrial fibrillation on Pradaxa who presented to the [facility] Emergency Department for confusion and altered mental status. The patient was also found hypothermic with a temperature of 88.9 rectally. His laboratory data showed acute kidney injury with creatinine level 1.37 and hyperkalemia with a potassium level 6.0. His lactic acid level measured at 0.8. In addition, he was found to have elevated liver enzymes with AST 177, ALT 168 and total bilirubin less than 0.1. Due to altered mental status, the patient was intubated with etomidate, vecuronium and placed on full mechanical ventilation. CT scan of the brain obtained in the emergency department showed slight atrophic and small vessel ischemic changes without any evidence for acute hemorrhage or mass effect. Chest x-ray post intubation showed right upper lobe and left lower lobe densities and adequate placement of the ET tube. In the emergency room, the patient was given approximately 1.5 liters of crystalloids in addition to vancomycin and Zosyn for possible aspiration pneumonia. Other significant labs showed a TSH of 11.0 and a random cortisol level of 9.7. He was also be given Decadron 10 mg IV push. ABG post-intubation showed a pH of 7.43, CO2 38, pAO2 186, bicarb 25, saturation 98% on assist control ventilation with a rate of 16, tidal volume 500, PEEP of 5 and FIO2 of 50%. When seen in the emergency room, he was sedated with Versed. 04/18 Patient is intubated and sedated with Versed 5mg started on Levophed 4 mics overnight. Hgb 6.8 this morning. 04/19 Patient remains intubated with versed. Off Levophed. s/p transfusion 1unit PRBC yesterday. 04/20 Patient is off Levophed,on Versed 2mg/hr. Tmax 100.4 04/21: off pressors. remains encephalopathic. going for MRA/MRV. plan for LP after if negative. hgb 7 this morning. Objective Vital Signs Date Time Temp Pulse Resp B/P Pulse Ox O2 Delivery O2 Flow Rate FiO2 04/21/17 12:15 99 35 04/21/17 12:00 97.3 68 16 159/82 04/17/17 17:00 Ventilator 04/17/17 14:00 2 Intake and Output 04/20/17 04/20/17 04/21/17 08:00 16:00 00:00 Intake Total 1425 ml 1689 ml 1057 ml Output Total 1200 ml 600 ml 1000 ml Balance 225 ml 1089 ml 57 ml Result Diagram: 04/21/17 0400 04/21/17 0400 Imaging Last Impressions Brain MRI 04/20/17 0000 Signed Impressions: Service Date/Time: Thursday, April 20, 2017 14:14 - CONCLUSION: Symmetric bilateral frontal and parietal high convexity cortical edema. Unusual appearance in which venous infarction and encephalitis should be considered among the differential possibilities. Boubacar Pearl MD Chest CT 04/19/17 0000 Signed Impressions: Service Date/Time: Wednesday, April 19, 2017 17:19 - CONCLUSION: 1. Posterior bibasilar patchy opacities consistent with atelectasis and/or mild infiltrates. Clinical correlation is recommended. 2. Tiny bilateral pleural effusions. 3. Cardiomegaly and coronary artery calcifications. 4. Degenerative changes and scoliosis of the thoracic spine. Rolando Rowe MD Abdomen/Pelvis CT 04/19/17 0000 Signed Impressions: Service Date/Time: Wednesday, April 19, 2017 17:16 - CONCLUSION: 1. Tiny bilateral pleural effusions with adjacent patchy infiltrates consistent with atelectasis and/or pneumonia. Clinical correlation is recommended. 2. No acute intraabdominal process. 3. Cardiomegaly and coronary artery calcifications. 4. Degenerative changes and scoliosis of the thoracolumbar spine. Rolando Rowe MD Chest X-Ray 04/18/17 0000 Signed Impressions: Service Date/Time: Tuesday, April 18, 2017 04:03 - CONCLUSION: No significant change Boubacar Pearl MD Head CT 04/17/17 1212 Signed Impressions: Service Date/Time: Monday, April 17, 2017 14:38 - CONCLUSION: Slight atrophic and small vessel ischemic changes without any evidence for acute hemorrhage or mass effect. Omer Urena MD Abdomen Ultrasound 04/17/17 0000 Signed Impressions: Service Date/Time: Monday, April 17, 2017 15:56 - CONCLUSION: 1. Nonvisualization of the common bile duct, pancreas and spleen. 2. Simple cyst left kidney. Dariusz Louis MD Objective Remarks GENERAL: Patient is 76 yo intubated and sedated SKIN: Warm and dry. HEAD: Normocephalic. EYES: No scleral icterus. No injection or drainage. NECK: trachea midline. No JVD CARDIOVASCULAR: Regular rate and rhythm. RESPIRATORY: Breath sounds equal bilaterally. No accessory muscle use. GASTROINTESTINAL: Abdomen soft, non-tender, nondistended. MUSCULOSKELETAL: No cyanosis, or edema. Neuro: Sedated, encephalopathic A/P Assessment and Plan 1. VDRF 2. Aspiration pneumonia. 3. Acute kidney injury. 4. s/p Hyperkalemia. 5. Elevated liver enzymes. 6. History of atrial fibrillation on Pradaxa. 7. Diabetes mellitus. 8. Hypertension. 9. Anemia. 10. Hypothyroidism. 11. History of dementia and seizure disorder. 12. Positive C-diff. Plan: Neuro: On Versed infusion for sedation, daily sedation vacation. Monitor neuro status MRV brain planned for today. Discussed with Neuro- Dr. Rasmussen will get MRA brain, and MRV brain to r/o venous thrombosis. continue on Acyclovir - adjust dose per renal function. If MRV negative will consider LP. Discussed with Neuro and ID. CT brain in the ER showed no evidence of any acute hemorrhage or mass effect. Dilantin level: 18 04/19 EEG 04/19- mod- severe encephalopathy- Neuro is following Pulm: Continue with vent support and maintain sats above 92%. Bronchodilators, ICU vent bundle. SBT trials as lobo. CT chest: Posterior bibasilar patchy opacities consistent with atelectasis and/or mild infiltrates. CV: Monitor HR and BP keep MAP>65mmHg Lactic acid level measured at 0.8. Continue with IVF On stress dose steroids- HC 100mg IV Q8 : Monitor renal function, intake and output and avoid nephrotoxins. Cr: downtrended to 1.1 today from 1.5-->1.4. , IVF D5W@84ml/hr, Free water 250ml Q8, monitor sodium level. GI: Monitor LFT's, follow up on Hepatitis profile. US abdomen: Nonvisualization of the common bile duct, pancreas and spleen. Simple cyst left kidney Normal liver, no gallstones. 04/19 CT abdomen/pelvis: No acute abd process. on Protonix 40mg IV daily for GI prophylaxis. On tube feeds-- Glucerna 1.5 @45ml/hr Consult GI for anemia/ drop in H/H might need EGD ID: Given Vancomycin and Zosyn in ED. ID is following. Continue with Vanco, Zosyn, Azithromycin. Monitor for signs of infections ( Fever, WBC) Acyclovir and Flagyl. Strep pneumoniae and Legionella urinary antigen negative. 04/17 Blood cx, urine cx: NGTD Endo: SSI with Accu-Chek q. 4 hours for glycemic control. On Synthroid 50 mcg daily. 04/17 TSH level: 11.0. FT4:0.69(L), FT3 level: 1.67(L) Recheck thyroid panel in am. Random cortisol level measured 9.7. On Sterids- HC 100mg IV Q8 Heme: Monitor CBC s/p transfusion 1unit PRBC on 04/18 Check Hemoccult stool, GI eval. DVT prophylaxis with SCDs, heparin SQ on hold given anemia requiring blood transfusion GI prophylaxis- On Protonix 40mg IV BID Lines: Left subclavian CVP placed 04/18 Palliative care eval to asses with goals of care Armando Green MD Apr 21, 2017 14:36
[2017-04-21] MEDS ORDERED: GADODIAMIDE PF 287 MG/ML 20 ML VIAL (for RAD MRI) IV ONE (16:09)
--- NOTE | 2017-04-21 16:47 | HHI.IDPN ---
Subjective Subjective Remarks is a 76 y/o CM senior care resident with a reported PMHx of hypothyroidism, hypertension, diabetes mellitus, dementia, seizure disorder on Dilantin, atrial fibrillation on Pradaxa who presented to the [facility] Emergency Department for confusion and altered mental status. The patient was also found hypothermic with a temperature of 88.9 rectally. History obtained from review of medical records no family could be reached. His laboratory data showed acute kidney injury with creatinine level 1.37 and hyperkalemia with a potassium level 6.0. His lactic acid level measured at 0.8. In addition, he was found to have elevated liver enzymes with AST 177, ALT 168 and total bilirubin less than 0.1. Due to altered mental status, the patient was intubated with etomidate, vecuronium and placed on full mechanical ventilation. CT scan of the brain obtained in the emergency department showed slight atrophic and small vessel ischemic changes without any evidence for acute hemorrhage or mass effect. Chest x-ray post intubation showed right upper lobe and left lower lobe densities and adequate placement of the ET tube. In the emergency room, the patient was given approximately 1.5 liters of crystalloids in addition to vancomycin and Zosyn for possible aspiration pneumonia. Other significant labs showed a TSH of 11.0 and a random cortisol level of 9.7. He was also be given Decadron 10 mg IV push. ABG post-intubation showed a pH of 7.43, CO2 38, pAO2 186, bicarb 25, saturation 98% on assist control ventilation with a rate of 16, tidal volume 500, PEEP of 5 and FIO2 of 50%. Patient seen in the ICU intubated, off sedation but no purposeful movements, not following commands, was moving his neck and upper body in all directions. Patient is not on pressors but is on a bear hugger to maintain body temperature as he continues to be hypothermic. UO is adequate. No diarrhea, no rash, no fevers, No witnessed seizures. Of note his dilantin level is supra therapeutic. ID consulted for evaluation of persistent hypothermia, sepsis, aspiration pneumonia, Altered mental status. Overnight events reviewed. Not much meaningful response. No fever No rash Continues to have diarrhea, has dignishield. Antibiotics Azithro IV Vanco IV Zosyn IV Lines Line sites with no e.o infection. Past Medical History 1. Dementia. 2. Hypertension. 3. Seizure disorder. 4. Atrial fibrillation. 5. Diabetes. 6. Gastroesophageal reflux disease (GERD). 7. Schizophrenia. 8. Chronic kidney disease. 9. Anemia. 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 Vital Signs Date Time Temp Pulse Resp B/P Pulse Ox O2 Delivery O2 Flow Rate FiO2 04/21/17 16:00 96.7 65 16 101/57 99 04/21/17 16:00 67 04/21/17 16:00 35 04/21/17 15:56 98 35 04/21/17 15:46 100 35 04/21/17 14:00 100 100 04/21/17 14:00 64 04/21/17 12:15 99 35 04/21/17 12:00 97.3 68 16 159/82 99 04/21/17 12:00 35 04/21/17 12:00 75 04/21/17 10:00 72 04/21/17 08:04 99 35 04/21/17 08:00 97.1 78 16 110/57 99 04/21/17 08:00 35 04/21/17 08:00 77 04/21/17 05:41 35 04/21/17 05:41 82 04/21/17 04:30 99.0 83 16 104/56 99 04/21/17 04:15 99.0 84 16 97/54 99 04/21/17 04:06 98 35 04/21/17 04:00 99.0 84 16 100/58 98 04/21/17 03:45 99.0 83 16 92/55 98 04/21/17 03:30 98.8 81 16 93/54 98 04/21/17 03:00 98.6 83 16 91/54 98 04/21/17 02:30 98.2 80 16 103/56 99 04/21/17 02:00 82 04/21/17 02:00 98.1 85 15 129/68 100 04/21/17 01:30 97.7 81 16 131/67 99 04/21/17 01:27 99 35 04/21/17 01:00 97.7 84 16 138/68 98 04/21/17 00:30 97.5 78 16 114/63 98 04/21/17 00:15 97.5 78 16 107/55 98 04/21/17 00:00 35 04/21/17 00:00 83 04/21/17 00:00 97.5 79 16 119/62 99 04/20/17 23:30 97.2 84 20 130/63 99 04/20/17 23:00 97.2 74 16 97/56 99 04/20/17 22:30 97.0 79 16 97/56 99 04/20/17 22:00 78 04/20/17 22:00 97.0 79 16 107/59 99 04/20/17 21:30 96.6 77 17 128/66 98 04/20/17 21:21 98 35 04/20/17 21:00 96.4 79 16 126/68 98 04/20/17 20:30 96.3 76 16 124/69 98 04/20/17 20:00 74 04/20/17 20:00 98.8 76 16 118/64 98 04/20/17 20:00 35 04/20/17 18:00 68 04/20/17 04/20/17 04/21/17 15:00 23:00 07:00 Intake Total 1689 ml 1057 ml 1392 ml Output Total 600 ml 1000 ml 1000 ml Balance 1089 ml 57 ml 392 ml Intake Oral 0 ml 0 ml IV Total 1203 ml 736 ml 662 ml Tube Feeding 286 ml 221 ml 330 ml Other 200 ml 100 ml 400 ml Output Urine Total 500 ml 800 ml 500 ml Stool Total 100 ml 200 ml 500 ml Gastric Drainage Total 0 ml 0 ml # Bowel Movements 3 . Laboratory Tests Test 04/20/17 04/21/17 03:20 04:00 White Blood Count 9.4 TH/MM3 8.5 TH/MM3 Red Blood Count 2.46 MIL/MM3 2.25 MIL/MM3 Hemoglobin 7.6 GM/DL 7.1 GM/DL Hematocrit 22.5 % 20.8 % Mean Corpuscular Volume 91.5 FL 92.6 FL Mean Corpuscular Hemoglobin 30.9 PG 31.7 PG Mean Corpuscular Hemoglobin 33.8 % 34.2 % Concent Red Cell Distribution Width 19.2 % 18.5 % Platelet Count 120 TH/MM3 108 TH/MM3 Mean Platelet Volume 7.8 FL 8.3 FL Neutrophils (%) (Auto) 85.0 % 83.9 % Lymphocytes (%) (Auto) 10.6 % 10.8 % Monocytes (%) (Auto) 4.3 % 5.2 % Eosinophils (%) (Auto) 0.0 % 0.1 % Basophils (%) (Auto) 0.1 % 0.0 % Neutrophils # (Auto) 7.9 TH/MM3 7.1 TH/MM3 Lymphocytes # (Auto) 1.0 TH/MM3 0.9 TH/MM3 Monocytes # (Auto) 0.4 TH/MM3 0.4 TH/MM3 Eosinophils # (Auto) 0.0 TH/MM3 0.0 TH/MM3 Basophils # (Auto) 0.0 TH/MM3 0.0 TH/MM3 CBC Comment DIFF FINAL DIFF FINAL Differential Comment Laboratory Tests Test 04/20/17 04/21/17 03:20 04:00 Sodium Level 146 MEQ/L 145 MEQ/L Potassium Level 4.0 MEQ/L 3.6 MEQ/L Chloride Level 115 MEQ/L 113 MEQ/L Carbon Dioxide Level 22.5 MEQ/L 21.9 MEQ/L Anion Gap 9 MEQ/L 10 MEQ/L Blood Urea Nitrogen 24 MG/DL 23 MG/DL Creatinine 1.41 MG/DL 1.19 MG/DL Estimat Glomerular Filtration 59 ML/MIN 72 ML/MIN Rate Random Glucose 126 MG/DL 129 MG/DL Calcium Level 7.4 MG/DL 7.3 MG/DL Protein Corrected Calcium 8.1 MG/DL 8.2 MG/DL Phosphorus Level 2.5 MG/DL Magnesium Level 2.0 MG/DL Total Bilirubin 0.2 MG/DL 0.2 MG/DL Aspartate Amino Transf 121 U/L 128 U/L (AST/SGOT) Alanine Aminotransferase 111 U/L 115 U/L (ALT/SGPT) Alkaline Phosphatase 157 U/L 165 U/L Total Protein 5.9 GM/DL 5.4 GM/DL Albumin 2.0 GM/DL 1.9 GM/DL Free Thyroxine 0.62 NG/DL Free Triiodothyronine (T3) 0.69 PG/ML pg/dL Thyroid Stimulating Hormone 3.260 uIU/ML 3rd Gen Microbiology Date/Time Procedure Status Source Growth 04/21/17 09:00 Gram Stain - Final Resulted Sputum Endotracheal 04/21/17 09:00 Sputum Culture Resulted Sputum Endotracheal Pending Imaging Last Impressions Chest CT 04/19/17 0000 Signed Impressions: Service Date/Time: Wednesday, April 19, 2017 17:19 - CONCLUSION: 1. Posterior bibasilar patchy opacities consistent with atelectasis and/or mild infiltrates. Clinical correlation is recommended. 2. Tiny bilateral pleural effusions. 3. Cardiomegaly and coronary artery calcifications. 4. Degenerative changes and scoliosis of the thoracic spine. Rolando Rowe MD Abdomen/Pelvis CT 04/19/17 0000 Signed Impressions: Service Date/Time: Wednesday, April 19, 2017 17:16 - CONCLUSION: 1. Tiny bilateral pleural effusions with adjacent patchy infiltrates consistent with atelectasis and/or pneumonia. Clinical correlation is recommended. 2. No acute intraabdominal process. 3. Cardiomegaly and coronary artery calcifications. 4. Degenerative changes and scoliosis of the thoracolumbar spine. Rolando Rowe MD Chest X-Ray 04/18/17 0000 Signed Impressions: Service Date/Time: Tuesday, April 18, 2017 04:03 - CONCLUSION: No significant change Boubacar Pearl MD Head CT 04/17/17 1212 Signed Impressions: Service Date/Time: Monday, April 17, 2017 14:38 - CONCLUSION: Slight atrophic and small vessel ischemic changes without any evidence for acute hemorrhage or mass effect. Omer Urena MD Abdomen Ultrasound 04/17/17 0000 Signed Impressions: Service Date/Time: Monday, April 17, 2017 15:56 - CONCLUSION: 1. Nonvisualization of the common bile duct, pancreas and spleen. 2. Simple cyst left kidney. Dariusz Louis MD Physical Exam GENERAL: This is a well-nourished, well-developed patient, in no apparent distress. SKIN: No rashes, ecchymoses or lesions. Cool and dry. HEAD: Atraumatic. Normocephalic. No temporal or scalp tenderness. EYES: Pupils equal round and reactive. Extraocular motions intact. No scleral icterus. No injection or drainage. ENT: Intubated. NECK: Trachea midline. Supple, nontender, no meningeal signs. CARDIOVASCULAR: Regular rate and rhythm without murmurs, gallops, or rubs. RESPIRATORY: Clear to auscultation. Breath sounds equal bilaterally. No wheezes , rales, or rhonchi. GASTROINTESTINAL: Abdomen soft, non-tender, nondistended. MUSCULOSKELETAL: Extremities without clubbing, cyanosis, or edema. No joint tenderness, effusion, or edema noted. No calf tenderness. Negative Homans sign bilaterally. NEUROLOGICAL: Off sedation, moving upper body and neck. No meaningful response. Psych: could not be assessed IV line sites with no e.o infection. Assessment & Plan Remarks Possible Sepsis now (hypothermia, leucocytosis, hypotension). Hypothermia: hypothyroidism, infection Diarrhea possible Cdiff. Acute metabolic encephalopathy: infection, metabolic, hypothyroidism Acute respiratory failure on vent. Possible HCAP, aspiration pneumonia on admission Acute renal failure: was on Bactrim as outpt plus ? prerenal and sepsis. H/o seizures Recs: Continue Ceftazidime IV Continue Vanco IV (target trough 15-20) for Pneumonia. Continue Flagyl oral Continue Acyclovir. If MRI and MRV/MRA normal recommend LP. Follow sputum cultures Follow cultures Follow clinically. Reviewed Neurology consult note. d.w Dr.Greene Bai RN for pt. Sana Kumar MD Apr 21, 2017 16:47
--- NOTE | 2017-04-21 17:08 | RADRPT ---
EXAM DATE/TIME: 04/21/2017 14:09 [facility] COMPARISON: MRI BRAIN W/O CONTRAST, April 20, 2017, 14:14. INDICATIONS : Altered mental status. MEDICAL HISTORY : Hypertension. Diabetes mellitus type 1. Seizures. A-fib SURGICAL HISTORY : None. ENCOUNTER: Subsequent ACUITY: 4-6 days PAIN SCORE: Nonresponsive. LOCATION: cranial Please note a normal MRA of the brain does not entirely exclude the possibility of a small aneurysm, nor the possibility of distal intracranial vessel disease. TECHNIQUE: 3D time of flight MRA was performed. Source images, multiplanar STS MIP, and 3D volume MIP reconstru ctions were reviewed. FINDINGS: There is excellent visualization of the major intracranial arteries out to the second-order branch ve ssels. There is no evidence for aneurysm, vessel truncation or stenosis, and no evidence for vascula r malformation. CONCLUSION: Normal examination. Boubacar Pearl MD on April 21, 2017 at 17:04 Board Certified Radiologist. This report was verified electronically.
--- NOTE | 2017-04-21 17:09 | RADRPT ---
EXAM DATE/TIME: 04/21/2017 14:09 COMPARISON: No previous studies available for comparison. INDICATIONS : Altered mental status. CONTRAST: 20 cc Omniscan (gadodiamide) IV MEDICAL HISTORY : Hypertension. Diabetes mellitus type 1. Seizures. A-fib SURGICAL HISTORY : None. ENCOUNTER: Subsequent ACUITY: 4-6 days PAIN SCORE: Nonresponsive. LOCATION: cranial FINDINGS: The major cerebral venous structures are intact and unremarkable. Specifically, the dural sinuses are patent. The internal cerebral venous structures are patent. Cortical surfaces are symmetric and azev[place] nt. CONCLUSION: Negative Boubacar Pearl MD on April 21, 2017 at 17:06 Board Certified Radiologist. This report was verified electronically.
--- NOTE | 2017-04-21 20:45 | PD.PROCEDR ---
Procedure Note Procedure Lumbar Puncture Diagnosis: Acute encephalopathy Indications: Encephalopathy Consent: Written consent was obtained Anesthesia: Lidocaine 1% locally Description of the Procedure: The patient was initially placed in the right lateral decubitus position. 2 attempts were made at both the L3/4, L4/5 interspaces. The patient has significant levoscoliosis and degenerative changes. The procedure was changed to a sitting procedure to facilitate opening of the interspace. The patient was placed in the sitting position. The patient was prepped and draped sterilely. 1% lidocaine was infiltrated subcutaneously. A 20g Quincke needle was inserted into the L3-4 interspace and advanced until CSF was obtained. CSF was drained in 4 incremental vials. The needle was removed and a dressing was applied. The patient was returned to the supine position. Instructions were given to remain flat x 2 hours. There were no immediate complications noted. There was minimal EBL. The patient tolerated the procedure well. Opening Pressure: Opening pressure was unobtainable due to the fact of the procedure was performed in the sitting position. Amount of CSF removed: 10 mL's Findings: Clear CSF, levoscoliosis I personally performed the procedure. Armando Green MD Apr 21, 2017 20:45
[2017-04-21 21:31] LABS: GROSS BLOOD TUBE #1 1+ (0); GROSS BLOOD TUBE #2 TRACE (0); SUPERNATE COLOR TUBE #1 CLEAR (CLEAR); SUPERNATE COLOR TUBE #2 CLEAR (CLEAR); VOLUME TUBE # 1 2.5 ML; VOLUME TUBE # 2 2.7 ML; VOLUME TUBE # 3 2.7 ML
[2017-04-21 21:32] LABS: SUPERNATE COLOR TUBE #3 CLEAR (CLEAR); SUPERNATE COLOR TUBE #4 CLEAR (CLEAR); VOLUME TUBE # 4 4.2 ML; WBC TUBE #4 3 /MM3 (0-10)
[2017-04-21 22:03] LABS: CSF LYMPHOCYTES 30 %; CSF MONOCYTES 40 %; CSF NEUTROPHILS 30 %
[2017-04-22] VITALS (43 sets, daily range): BP systolic 107–170; BP diastolic 57–74; PULSE 70–102; RESP 15–16; TEMP 98–99.8; O2SAT 98–100
[2017-04-22] MEDS: HYDROCORTISONE SOD SUCCINATE 100 MG VIAL IV PUSH SCH ×3 (00:10→18:24)
[2017-04-22] MEDS: INSULIN NovoLIN REGULAR SUPPLEMENTAL SCALE SQ SCH ×4 (04:00→12:00)
[2017-04-22] MEDS: CHLORHEXIDINE GLUCONATE 2 % 1 PACK (2 CLOTHS) TOP SCH (04:00)
[2017-04-22 04:59] LABS: ALT (GPT) 99 U/L (12-78); AST (GOT) 82 U/L (15-37)
[2017-04-22 05:01] LABS: ALKALINE PHOSPHATASE 142 U/L (45-117); TOTAL BILIRUBIN ADULT 0.1 MG/DL (0.2-1.0)
[2017-04-22] MEDS: metroNIDAZOLE 500 MG TAB PO SCH ×3 (06:42→22:26)
[2017-04-22] MEDS: LEVOTHYROXINE SODIUM 50 MCG TAB PO SCH (06:42)
[2017-04-22] MEDS: ACYCLOVIR IV SCH ×2 (06:43→18:25)
[2017-04-22] MEDS: SODIUM CHLOR 0.9% IV SCH ×2 (06:43→18:25)
[2017-04-22] MEDS: PHENYTOIN INJ 100 MG/2 ML VIAL IV SCH ×3 (06:43→22:25)
[2017-04-22] MEDS: FREE WATER G-TUBE SCH ×3 (08:00→16:00)
[2017-04-22] MEDS: cefTAZidime INJ 2,000 MG in SODIUM CHLORIDE 0.9% INJ 100 ML IV SCH (08:00)
[2017-04-22] MEDS: LACTULOSE SYRUP 20 GM/30 ML CUP PO SCH ×2 (08:22→22:25)
[2017-04-22] MEDS: PANTOPRAZOLE SODIUM 40 MG VIAL IV SCH ×2 (08:22→22:25)
[2017-04-22] MEDS: DOCUSATE SODIUM 50 MG/SENNA 8.6 MG TAB PO SCH ×2 (08:23→22:26)
--- NOTE | 2017-04-22 13:53 | HHI.HCPN ---
Reason for visit a. To assist with evaluation and management of symptoms including: Shortness of breath and debility. b. To assist medical decision maker(s) with: better understanding of current medical conditions; weighing benefits/burdens of medical treatment options; making medical treatment decisions. . Subjective/Interval History Mr. Rivera is a 76 y/o male known to palliative care with a medical history of dementia, atrial fibrillation on anticoagulation, seizures, hypertension, schizophrenia and chronic kidney disease. Patient presented to ED on 04/17/17 via EMS for evaluation of altered mental status. He was intubated for airway protection and transferred to ICU for further management. Palliative care has been consulted for further clarifications of goals of care given patient's multiple comorbidities and current clinical condition. MRI of the brain 04/20/17 revealing cortical edema. Infectious disease and neurology following. MRA and MRV of the head/brain, negative. Lumbar puncture performed yesterday. Infectious disease and neurology following. Patient remains with unchanged neurological status. Possibly septic given clinical signs of hypertension and hypothermia. Remains orally intubated on mechanical ventilation, 35% FiO2. Opening eyes but not tracking or following any commands, off sedation since yesterday. No new laboratory for review. Telephone conversation with patient's son Chad Rivera and sister Suzi Ortiz. Medical update provided. Reviewed MRA and MRV results. Shared concerns of patient's clinical condition with unchanged neurological status, guarded prognosis given multiple chronic comorbidities, acute events, physical deconditioning and advanced age. Discussed that it is uncertain at this time if patient will be able to wean off ventilator support or survive this hospitalization given the above. Discussed risks, benefits and limitations of CPR/cardiac code given patient's clinical status. Fam electing alt code/ intubation only. Discussed with son to consider visiting patient given guarded prognosis, daughter reports that she is unable to visit due to financial reasons (she resides in the [facility]). Son and daughter receptive to [facility] discussion. Case discussed with bedside RN Alva. . Family/friend interactions See interval note. . Advance Directives Durable Power of Counseling Services Manager: Copy in medical record Advance Directive Specifics Date completed: 05/04/2014 -- THIS IS A [place] [employer] POWER OF MEDIA DEVELOPER DOCUMENT. IT DOES NOT REFER TO HEALTH CARE DECISION MAKING. Financial decision making is given to Chad Rivera. Health Care Surrogate(s): During previous hospitalization, all available children were previously contacted by palliative care. All have deferred health care decision making to two of the children Chad and Suzi as co-HCP. * Chad Rivera (son) who lives in [place] [phone] * Suzi Ortiz (daughter) who lives in [facility] [phone] . Documented care wishes: No living will completed. During the previous hospitalization, the family continued to want aggressive care, including intubation for some number of days. Significant change in goals: Alt code/intubation only. Continue conservative management while family discussing GOC. Fam has declined peg tube in the past. . Objective Vital Signs Date Time Temp Pulse Resp B/P Pulse Ox O2 Delivery O2 Flow Rate FiO2 04/22/17 12:55 100 35 04/22/17 12:00 97.9 77 15 152/70 100 04/22/17 12:00 35 04/22/17 11:00 97.9 78 15 142/66 100 04/22/17 10:00 97.5 76 16 146/69 100 04/22/17 09:00 97.7 92 15 142/67 99 04/22/17 08:34 100 Ventilator 35 04/22/17 08:34 100 35 04/22/17 08:34 35 04/22/17 08:00 35 04/22/17 08:00 97.7 76 16 119/58 100 04/22/17 07:00 98.4 74 16 121/58 100 04/22/17 06:00 79 04/22/17 04:00 82 04/22/17 04:00 35 04/22/17 04:00 99.1 82 16 120/59 99 04/22/17 03:25 100 35 04/22/17 02:00 85 04/22/17 00:00 99.8 89 16 107/59 98 04/22/17 00:00 89 04/22/17 00:00 35 04/21/17 23:26 97 35 04/21/17 22:00 86 04/21/17 20:00 100.7 93 16 100/55 99 04/21/17 20:00 93 04/21/17 20:00 35 04/21/17 19:58 99 35 04/21/17 19:53 96 35 04/21/17 18:00 84 04/21/17 16:00 96.7 65 16 101/57 99 04/21/17 16:00 67 04/21/17 16:00 35 04/21/17 15:56 98 35 04/21/17 15:46 100 35 04/21/17 14:00 100 100 04/21/17 14:00 64 Intake & Output 04/22/17 04/22/17 06:59 18:59 Intake Total 2647 ml Output Total 2150 ml Balance 497 ml IV Total 1579 ml Tube Feeding 818 ml Other 250 ml Output Urine Total 1450 ml Stool Total 700 ml Physical Exam CONSTITUTIONAL/GENERAL: This is an elderly patient in no apparent distress. Orally intubated on mechanical ventilation. TUBES/LINES/DRAINS: ETT, OG, central line to left chest, Naik catheter, rectal tube, bilateral soft wrist restraints, SCDs. SKIN: No jaundice, rashes, or lesions. Ecchymoses on upper extremities. No wounds seen anteriorly. Not diaphoretic. HEAD: Atraumatic. Normocephalic. EYES: No scleral icterus. No injection or drainage. ENT: Unable to evaluate hearing secondary to clinical condition. Nose without bleeding or purulent drainage. Moist oral mucosa. NECK: Trachea midline. Supple. CARDIOVASCULAR: Regular rate and rhythm. Peripheral pulses symmetric. RESPIRATORY/CHEST: Symmetric, unlabored respirations. Orally intubated on mechanical ventilation. Clear, diminished breath sounds. GASTROINTESTINAL: Abdomen large, round, soft. No guarding. Bowel sounds present. GENITOURINARY: Without palpable bladder distension. Naik catheter in place. MUSCULOSKELETAL: Extremities without clubbing, cyanosis. Edema to bilateral hands. NEUROLOGICAL: Eyes open, not tracking or following any commands. Unresponsive to verbal or tactile stimuli. Of sedation. PSYCHIATRIC: Unable to evaluate secondary to clinical condition. Appears calm. . Diagnostic Tests Laboratory Laboratory Tests Test 04/20/17 04/20/17 04/21/17 04/21/17 03:20 09:30 04:00 12:50 White Blood Count 9.4 TH/MM3 8.5 TH/MM3 (4.0-11.0) (4.0-11.0) Red Blood Count 2.46 MIL/MM3 2.25 MIL/MM3 (4.50-5.90) (4.50-5.90) Hemoglobin 7.6 GM/DL 7.1 GM/DL (13.0-17.0) (13.0-17.0) Hematocrit 22.5 % 20.8 % (39.0-51.0) (39.0-51.0) Mean Corpuscular Volume 91.5 FL 92.6 FL (80.0-100.0) (80.0-100.0) Mean Corpuscular Hemoglobin 30.9 PG 31.7 PG (27.0-34.0) (27.0-34.0) Mean Corpuscular Hemoglobin 33.8 % 34.2 % Concent (32.0-36.0) (32.0-36.0) Red Cell Distribution Width 19.2 % 18.5 % (11.6-17.2) (11.6-17.2) Platelet Count 120 TH/MM3 108 TH/MM3 (150-450) (150-450) Mean Platelet Volume 7.8 FL 8.3 FL (7.0-11.0) (7.0-11.0) Neutrophils (%) (Auto) 85.0 % 83.9 % (16.0-70.0) (16.0-70.0) Lymphocytes (%) (Auto) 10.6 % 10.8 % (9.0-44.0) (9.0-44.0) Monocytes (%) (Auto) 4.3 % (0.0-8.0) 5.2 % (0.0-8.0) Eosinophils (%) (Auto) 0.0 % (0.0-4.0) 0.1 % (0.0-4.0) Basophils (%) (Auto) 0.1 % (0.0-2.0) 0.0 % (0.0-2.0) Neutrophils # (Auto) 7.9 TH/MM3 7.1 TH/MM3 (1.8-7.7) (1.8-7.7) Lymphocytes # (Auto) 1.0 TH/MM3 0.9 TH/MM3 (1.0-4.8) (1.0-4.8) Monocytes # (Auto) 0.4 TH/MM3 0.4 TH/MM3 (0-0.9) (0-0.9) Eosinophils # (Auto) 0.0 TH/MM3 0.0 TH/MM3 (0-0.4) (0-0.4) Basophils # (Auto) 0.0 TH/MM3 0.0 TH/MM3 (0-0.2) (0-0.2) CBC Comment DIFF FINAL DIFF FINAL Differential Comment Sodium Level 146 MEQ/L 145 MEQ/L (136-145) (136-145) Potassium Level 4.0 MEQ/L 3.6 MEQ/L (3.5-5.1) (3.5-5.1) Chloride Level 115 MEQ/L 113 MEQ/L (98-107) (98-107) Carbon Dioxide Level 22.5 MEQ/L 21.9 MEQ/L (21.0-32.0) (21.0-32.0) Anion Gap 9 MEQ/L (5-15) 10 MEQ/L (5-15) Blood Urea Nitrogen 24 MG/DL (7-18) 23 MG/DL (7-18) Creatinine 1.41 MG/DL 1.19 MG/DL (0.60-1.30) (0.60-1.30) Estimat Glomerular Filtration 59 ML/MIN (>89) 72 ML/MIN (>89) Rate Random Glucose 126 MG/DL 129 MG/DL (74-106) (74-106) Calcium Level 7.4 MG/DL 7.3 MG/DL (8.5-10.1) (8.5-10.1) Protein Corrected Calcium 8.1 MG/DL 8.2 MG/DL (8.5-10.1) (8.5-10.1) Phosphorus Level 2.5 MG/DL (2.5-4.9) Magnesium Level 2.0 MG/DL (1.5-2.5) Total Bilirubin 0.2 MG/DL 0.2 MG/DL (0.2-1.0) (0.2-1.0) Aspartate Amino Transf 121 U/L (15-37) 128 U/L (15-37) (AST/SGOT) Alanine Aminotransferase 111 U/L (12-78) 115 U/L (12-78) (ALT/SGPT) Alkaline Phosphatase 157 U/L 165 U/L (45-117) (45-117) Total Protein 5.9 GM/DL 5.4 GM/DL (6.4-8.2) (6.4-8.2) Albumin 2.0 GM/DL 1.9 GM/DL (3.4-5.0) (3.4-5.0) Phenytoin (Dilantin) Level 17.8 MCG/ML (10.0-20.0) Stool C. difficile Toxin (PCR) POSITIVE (NEGATIVE) Stl C. difficile Toxin PRESUMPTIVE Epiderm 027 POSITIVE (NEGATIVE) Free Thyroxine 0.62 NG/DL (0.76-1.46) Free Triiodothyronine (T3) 0.69 PG/ML pg/dL (2.18-3.98) Thyroid Stimulating Hormone 3.260 uIU/ML 3rd Gen (0.358-3.740) Vancomycin Level Trough 14.7 MCG/ML (5.0-10.0) Test 04/21/17 04/22/17 20:40 04:16 CSF Volume (Tube 1) 2.5 ML CSF Supernatant Color (tube 1) CLEAR (CLEAR) CSF Gross Blood (Tube 1) 1+ (0) CSF Volume (Tube 2) 2.7 ML CSF Supernatant Color (tube 2) CLEAR (CLEAR) CSF Gross Blood (Tube 2) TRACE (0) CSF Volume (Tube 3) 2.7 ML CSF Supernatant Color (tube 3) CLEAR (CLEAR) CSF Volume (Tube 4) 4.2 ML CSF Supernatant Color (tube 4) CLEAR (CLEAR) CSF WBC (Tube 4) 3 /MM3 (0-10) CSF RBC (Tube 4) 7 /MM3 (NONE) CSF Neutrophils 30 % CSF Lymphocytes 30 % CSF Monocytes 40 % CSF Glucose 91 MG/DL (40-80) CSF Total Protein 64.8 MG/DL (15.0-45.0) Total Bilirubin 0.1 MG/DL (0.2-1.0) Direct Bilirubin LESS THAN 0.1 MG/DL (0.0-0.2) Indirect Bilirubin 0.0 MG/DL (0.0-0.8) Aspartate Amino Transf 82 U/L (15-37) (AST/SGOT) Alanine Aminotransferase 99 U/L (12-78) (ALT/SGPT) Alkaline Phosphatase 142 U/L (45-117) Total Protein 5.7 GM/DL (6.4-8.2) Albumin 2.0 GM/DL (3.4-5.0) Result Diagram: 04/21/17 0400 04/21/17 0400 Microbiology Microbiology Date/Time Procedure Status Source Growth 04/21/17 09:00 Gram Stain - Final Resulted Sputum Endotracheal 04/21/17 09:00 Sputum Culture - Preliminary Resulted Sputum Endotracheal LIGHT GROWTH NORMAL RESPIRATORY KARIME... 04/21/17 20:40 Gram Stain - Final Resulted Cerebral Spinal Fluid Lumbar Puncture 04/21/17 20:40 CSF Culture - Preliminary Resulted Cerebral Spinal Fluid Lumbar Puncture NO GROWTH IN 24 HOURS. 04/21/17 20:40 Acid Fast Stain Received Cerebral Spinal Fluid Lumbar Puncture Pending 04/21/17 20:40 Mycobacterial Culture Received Cerebral Spinal Fluid Lumbar Puncture Pending Procedures * 04/21/17 -lumbar puncture * 04/18/17 -central line placement * 04/17/17 -endotracheal intubation . Assessment and Plan Disease Oriented Problem List: (1) Acute respiratory failure (2) Encephalopathy (3) Aspiration pneumonia (4) Seizures (5) Acute kidney injury (6) Hypothermia (7) Dementia with behavioral disturbance Symptom Scale: (1) Shortness of breath 0-10 Scale: Unable to quantify Comment: Pneumonia, ventilator dependent respiratory failure. Remains orally intubated on mechanical ventilation. (2) Debility 0-10 Scale: Unable to quantify Pertinent Non-Medical Issues Psychosocial: The patient was born and raised in [facility]. He was for about 20 years but for many years. He had 4 sons and 2 daughters, one daughter is . Spiritual: No church affiliation. Legal: Power of attorney lawyer completed. Ethical issues impacting care: Patient unable to participate in medical decision -making, not capacitated secondary to dementia. HCP are his children. . Important Contacts Son Chad Rivera Jr who resides in [place] Daughter Suzi Ortiz who resides in the [facility] . . Prognosis Mr. Rivera is a 76 y/o male known to palliative care with a medical history of dementia, atrial fibrillation on anticoagulation, seizures, hypertension, schizophrenia and chronic kidney disease. Clinical course complicated by ventilator dependent respiratory failure, aspiration pneumonia, hypothermia and acute on chronic kidney failure. Patient at a very high risk for further complications, continue decline and . Prognosis is guarded given multiple chronic comorbidities, acute events, physical deconditioning and advanced age. . Code Status: Alternative Code Plan * CODE STATUS: Alt code/intubation only. Both son Chad and daughter Suzi electing to change code status from FULL to intubation only given patient's clinical condition and guarded prognosis. * HEALTHCARE DECISION-MAKING: Because of the patient's dementia, intubation/ mech vent, he is incapacitated to make his own health care decisions and is not expected to regain capacity. In the absence of advance directives and as per [place] law, proxy decision-making falls to the majority patient's children. His son Chad and daughter Suzi have been appointed during previous acute hospitalization by the other children as co-healthcare proxy decision making ( other children declining to participate in medical decision-making). . * GOALS OF CARE: Family electing to continue conservative management short of NO cardiac code -Patient was made intubation only code. Family has declined PEG tube placement during past acute admissions. Ongoing goals of care discussion with family. * 04/22/17 -Telephone conversation with patient's son Chad Rivera and sister Suzi Ortiz. Medical update provided. Reviewed MRA and MRV results. Shared concerns of patient's clinical condition with unchanged neurological status, guarded prognosis given multiple chronic comorbidities, acute events, physical deconditioning and advanced age. Discussed that it is uncertain at this time if patient will be able to wean off ventilator support given neurological status/acute illness or to survive this hospitalization given the above. Discussed with son and daughter to consider visiting patient given guarded prognosis, daughter reports that she is unable to visit due to financial reasons (she resides in the [facility]). Son and daughter receptive to cont GOC discussion. Likely to withdraw should pt's clinical condition does not improve, worsen or additional complications. * SYMPTOMS: = Shortness of breath, secondary to ventilator dependent respiratory failure, aspiration pneumonia. Remains orally intubated on mechanical ventilation. = Debility, patient resident of long-term facility. Requiring assistance with all ADLs. Likely to continue to worsen. * Case discussed with bedside RN Alva. * Palliative care contact information has been provided to patient's family. * Palliative care will continue to follow-up for further clarifications of goals of care as patient's clinical course continues to evolve. . Time Spent Total Floor Time (mins): 44 (total time to include review of medical records, physical exam, 2 separate telephone conversation with son Chad and daughter Suzi to discuss GOC and case discussion with bedside RN Alva. ) >50% Counseling/Coord of Care: Yes Attestation To help prompt me to consider important information that might be impacting today's encounter and assessment, information from prior notes written by myself or my colleagues may have been "brought forward" into today's note. My signature on this note, however, is an attestation that I personally performed the exam, history, and/or decision-making noted today, and, unless otherwise indicated, the interactions with patient, family, and staff as well as the review of records all occurred today. I also attest that the listed assessment and stated plan reflect my best clinical judgment today based on the combination of historical information, prior notes, and today's exam/ interactions. When time spent is documented, it refers only to time spent today by the signer, or if indicated, combined time spent today by collaborating physician/nurse practitioner. Vida Morales Apr 22, 2017 13:52
--- NOTE | 2017-04-22 14:53 | HHI.IDPN ---
Subjective Subjective Remarks is a 76 y/o CM long term resident with a reported PMHx of hypothyroidism, hypertension, diabetes mellitus, dementia, seizure disorder on Dilantin, atrial fibrillation on Pradaxa who presented to the [facility] Emergency Department for confusion and altered mental status. The patient was also found hypothermic with a temperature of 88.9 rectally. History obtained from review of medical records no family could be reached. His laboratory data showed acute kidney injury with creatinine level 1.37 and hyperkalemia with a potassium level 6.0. His lactic acid level measured at 0.8. In addition, he was found to have elevated liver enzymes with AST 177, ALT 168 and total bilirubin less than 0.1. Due to altered mental status, the patient was intubated with etomidate, vecuronium and placed on full mechanical ventilation. CT scan of the brain obtained in the emergency department showed slight atrophic and small vessel ischemic changes without any evidence for acute hemorrhage or mass effect. Chest x-ray post intubation showed right upper lobe and left lower lobe densities and adequate placement of the ET tube. In the emergency room, the patient was given approximately 1.5 liters of crystalloids in addition to vancomycin and Zosyn for possible aspiration pneumonia. Other significant labs showed a TSH of 11.0 and a random cortisol level of 9.7. He was also be given Decadron 10 mg IV push. ABG post-intubation showed a pH of 7.43, CO2 38, pAO2 186, bicarb 25, saturation 98% on assist control ventilation with a rate of 16, tidal volume 500, PEEP of 5 and FIO2 of 50%. Patient seen in the ICU intubated, off sedation but no purposeful movements, not following commands, was moving his neck and upper body in all directions. Patient is not on pressors but is on a bear hugger to maintain body temperature as he continues to be hypothermic. UO is adequate. No diarrhea, no rash, no fevers, No witnessed seizures. Of note his dilantin level is supra therapeutic. ID consulted for evaluation of persistent hypothermia, sepsis, aspiration pneumonia, Altered mental status. Overnight events reviewed. Not much meaningful response. Opens eyes spontaneously. No fever No rash Continues to have diarrhea, has dignishield. Antibiotics Ceftaz IV Vanco IV Acyclovir IV Flagyl oral Lines Line sites with no e.o infection. Past Medical History 1. Dementia. 2. Hypertension. 3. Seizure disorder. 4. Atrial fibrillation. 5. Diabetes. 6. Gastroesophageal reflux disease (GERD). 7. Schizophrenia. 8. Chronic kidney disease. 9. Anemia. 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 Vital Signs Date Time Temp Pulse Resp B/P Pulse Ox O2 Delivery O2 Flow Rate FiO2 04/22/17 12:55 100 35 04/22/17 12:00 97.9 77 15 152/70 100 04/22/17 12:00 35 04/22/17 11:00 97.9 78 15 142/66 100 04/22/17 10:00 97.5 76 16 146/69 100 04/22/17 09:00 97.7 92 15 142/67 99 04/22/17 08:34 100 Ventilator 35 04/22/17 08:34 100 35 04/22/17 08:34 35 04/22/17 08:00 35 04/22/17 08:00 97.7 76 16 119/58 100 04/22/17 07:00 98.4 74 16 121/58 100 04/22/17 06:00 79 04/22/17 04:00 82 04/22/17 04:00 35 04/22/17 04:00 99.1 82 16 120/59 99 04/22/17 03:25 100 35 04/22/17 02:00 85 04/22/17 00:00 99.8 89 16 107/59 98 04/22/17 00:00 89 04/22/17 00:00 35 04/21/17 23:26 97 35 04/21/17 22:00 86 04/21/17 20:00 100.7 93 16 100/55 99 04/21/17 20:00 93 04/21/17 20:00 35 04/21/17 19:58 99 35 04/21/17 19:53 96 35 04/21/17 18:00 84 04/21/17 16:00 96.7 65 16 101/57 99 04/21/17 16:00 67 04/21/17 16:00 35 04/21/17 15:56 98 35 04/21/17 15:46 100 35 04/21/17 04/21/17 04/22/17 15:00 23:00 07:00 Intake Total 1678 ml 1522 ml 1125 ml Output Total 1800 ml 1200 ml 950 ml Balance -122 ml 322 ml 175 ml IV Total 843 ml 800 ml 779 ml Tube Feeding 335 ml 472 ml 346 ml Other 500 ml 250 ml Output Urine Total 1100 ml 900 ml 550 ml Stool Total 700 ml 300 ml 400 ml . Laboratory Tests Test 04/21/17 04:00 White Blood Count 8.5 TH/MM3 Red Blood Count 2.25 MIL/MM3 Hemoglobin 7.1 GM/DL Hematocrit 20.8 % Mean Corpuscular Volume 92.6 FL Mean Corpuscular Hemoglobin 31.7 PG Mean Corpuscular Hemoglobin 34.2 % Concent Red Cell Distribution Width 18.5 % Platelet Count 108 TH/MM3 Mean Platelet Volume 8.3 FL Neutrophils (%) (Auto) 83.9 % Lymphocytes (%) (Auto) 10.8 % Monocytes (%) (Auto) 5.2 % Eosinophils (%) (Auto) 0.1 % Basophils (%) (Auto) 0.0 % Neutrophils # (Auto) 7.1 TH/MM3 Lymphocytes # (Auto) 0.9 TH/MM3 Monocytes # (Auto) 0.4 TH/MM3 Eosinophils # (Auto) 0.0 TH/MM3 Basophils # (Auto) 0.0 TH/MM3 CBC Comment DIFF FINAL Differential Comment Laboratory Tests Test 04/21/17 04/22/17 04:00 04:16 Sodium Level 145 MEQ/L Potassium Level 3.6 MEQ/L Chloride Level 113 MEQ/L Carbon Dioxide Level 21.9 MEQ/L Anion Gap 10 MEQ/L Blood Urea Nitrogen 23 MG/DL Creatinine 1.19 MG/DL Estimat Glomerular Filtration 72 ML/MIN Rate Random Glucose 129 MG/DL Calcium Level 7.3 MG/DL Protein Corrected Calcium 8.2 MG/DL Total Bilirubin 0.2 MG/DL 0.1 MG/DL Aspartate Amino Transf 128 U/L 82 U/L (AST/SGOT) Alanine Aminotransferase 115 U/L 99 U/L (ALT/SGPT) Alkaline Phosphatase 165 U/L 142 U/L Total Protein 5.4 GM/DL 5.7 GM/DL Albumin 1.9 GM/DL 2.0 GM/DL Free Thyroxine 0.62 NG/DL Free Triiodothyronine (T3) 0.69 PG/ML pg/dL Thyroid Stimulating Hormone 3.260 uIU/ML 3rd Gen Direct Bilirubin LESS THAN 0.1 MG/DL Indirect Bilirubin 0.0 MG/DL Microbiology Date/Time Procedure Status Source Growth 04/21/17 09:00 Gram Stain - Final Resulted Sputum Endotracheal 04/21/17 09:00 Sputum Culture - Preliminary Resulted Sputum Endotracheal LIGHT GROWTH NORMAL RESPIRATORY KARIME... 04/21/17 20:40 Gram Stain - Final Resulted Cerebral Spinal Fluid Lumbar Puncture 04/21/17 20:40 CSF Culture - Preliminary Resulted Cerebral Spinal Fluid Lumbar Puncture NO GROWTH IN 24 HOURS. 04/21/17 20:40 Acid Fast Stain Received Cerebral Spinal Fluid Lumbar Puncture Pending 04/21/17 20:40 Mycobacterial Culture Received Cerebral Spinal Fluid Lumbar Puncture Pending Imaging Last Impressions Chest CT 04/19/17 0000 Signed Impressions: Service Date/Time: Wednesday, April 19, 2017 17:19 - CONCLUSION: 1. Posterior bibasilar patchy opacities consistent with atelectasis and/or mild infiltrates. Clinical correlation is recommended. 2. Tiny bilateral pleural effusions. 3. Cardiomegaly and coronary artery calcifications. 4. Degenerative changes and scoliosis of the thoracic spine. Rolando Rowe MD Abdomen/Pelvis CT 04/19/17 0000 Signed Impressions: Service Date/Time: Wednesday, April 19, 2017 17:16 - CONCLUSION: 1. Tiny bilateral pleural effusions with adjacent patchy infiltrates consistent with atelectasis and/or pneumonia. Clinical correlation is recommended. 2. No acute intraabdominal process. 3. Cardiomegaly and coronary artery calcifications. 4. Degenerative changes and scoliosis of the thoracolumbar spine. Rolando Rowe MD Chest X-Ray 04/18/17 0000 Signed Impressions: Service Date/Time: Tuesday, April 18, 2017 04:03 - CONCLUSION: No significant change Boubacar Pearl MD Head CT 04/17/17 1212 Signed Impressions: Service Date/Time: Monday, April 17, 2017 14:38 - CONCLUSION: Slight atrophic and small vessel ischemic changes without any evidence for acute hemorrhage or mass effect. Omer Urena MD Abdomen Ultrasound 04/17/17 0000 Signed Impressions: Service Date/Time: Monday, April 17, 2017 15:56 - CONCLUSION: 1. Nonvisualization of the common bile duct, pancreas and spleen. 2. Simple cyst left kidney. Dariusz Louis MD Physical Exam GENERAL: This is a well-nourished, well-developed patient, in no apparent distress. SKIN: No rashes, ecchymoses or lesions. Cool and dry. HEAD: Atraumatic. Normocephalic. No temporal or scalp tenderness. EYES: Pupils equal round and reactive. Extraocular motions intact. No scleral icterus. No injection or drainage. ENT: Intubated. NECK: Trachea midline. Supple, nontender, no meningeal signs. CARDIOVASCULAR: Regular rate and rhythm without murmurs, gallops, or rubs. RESPIRATORY: Clear to auscultation. Breath sounds equal bilaterally. No wheezes , rales, or rhonchi. GASTROINTESTINAL: Abdomen soft, non-tender, nondistended. MUSCULOSKELETAL: Extremities without clubbing, cyanosis, or edema. No joint tenderness, effusion, or edema noted. No calf tenderness. Negative Homans sign bilaterally. NEUROLOGICAL: Off sedation, moving upper body and neck. No meaningful response. Opens eyes spontaneously. Psych: could not be assessed IV line sites with no e.o infection. Assessment & Plan Remarks Possible Sepsis now (hypothermia, leucocytosis, hypotension). Hypothermia: hypothyroidism, infection Diarrhea possible Cdiff. Acute metabolic encephalopathy: infection, metabolic, hypothyroidism Acute respiratory failure on vent. Possible HCAP, aspiration pneumonia on admission Acute renal failure: was on Bactrim as outpt plus ? prerenal and sepsis. H/o seizures Recs: DC Ceftazidime IV DC Vanco IV (target trough 15-20) Start Zosyn IV (aspiration Pneumonia) Continue Flagyl oral (for anaerobic coverage and Cdiff) Continue Acyclovir. Will stop when HSV PCR reported as negative. Ordered HIV PCR, Added CSF encephalitis panel and CSF TRINITY virus and VDRL. Follow sputum cultures Follow cultures Follow clinically. Reviewed Neurology consult note. norman Bai RN for pt. Sana Kumar MD Apr 22, 2017 14:53 Sana Kumar MD Apr 22, 2017 14:53
[2017-04-22] MEDS: DEXTROSE 5% IN WATE 1000ML INJ 1,000 ML IV SCH (15:36)
--- NOTE | 2017-04-22 16:05 | HHI.GIFU ---
Subjective Remarks patient is alert on a vent. no bleeding reported. brown loose stools noted in the rectal bag. Tolerating TF at 45 ml/hr (Cory Duque) Objective Vitals I&O Vital Signs Date Time Temp Pulse Resp B/P Pulse Ox O2 Delivery O2 Flow Rate FiO2 04/22/17 12:55 100 35 04/22/17 12:00 97.9 77 15 152/70 100 04/22/17 12:00 35 04/22/17 11:00 97.9 78 15 142/66 100 04/22/17 10:00 97.5 76 16 146/69 100 04/22/17 09:00 97.7 92 15 142/67 99 04/22/17 08:34 100 Ventilator 35 04/22/17 08:34 100 35 04/22/17 08:34 35 04/22/17 08:00 35 04/22/17 08:00 97.7 76 16 119/58 100 04/22/17 07:00 98.4 74 16 121/58 100 04/22/17 06:00 79 04/22/17 04:00 82 04/22/17 04:00 35 04/22/17 04:00 99.1 82 16 120/59 99 04/22/17 03:25 100 35 04/22/17 02:00 85 04/22/17 00:00 99.8 89 16 107/59 98 04/22/17 00:00 89 04/22/17 00:00 35 04/21/17 23:26 97 35 04/21/17 22:00 86 04/21/17 20:00 100.7 93 16 100/55 99 04/21/17 20:00 93 04/21/17 20:00 35 04/21/17 19:58 99 35 04/21/17 19:53 96 35 04/21/17 18:00 84 04/21/17 16:00 96.7 65 16 101/57 99 04/21/17 16:00 67 04/21/17 16:00 35 I/O 04/21/17 04/21/17 04/21/17 04/22/17 04/22/17 04/22/17 06:59 14:59 22:59 06:59 14:59 22:59 Intake Total 2449 ml 1678 ml 1522 ml 1125 ml Output Total 2000 ml 1800 ml 1200 ml 950 ml Balance 449 ml -122 ml 322 ml 175 ml Intake Oral 0 ml IV Total 1398 ml 843 ml 800 ml 779 ml Tube Feeding 551 ml 335 ml 472 ml 346 ml Other 500 ml 500 ml 250 ml Output Urine Total 1300 ml 1100 ml 900 ml 550 ml Stool Total 700 ml 700 ml 300 ml 400 ml Gastric Drainage Total 0 ml Laboratory Laboratory Tests Test 04/21/17 04/22/17 20:40 04:16 CSF Volume (Tube 1) 2.5 CSF Supernatant Color (tube 1) CLEAR CSF Gross Blood (Tube 1) 1+ CSF Volume (Tube 2) 2.7 CSF Supernatant Color (tube 2) CLEAR CSF Gross Blood (Tube 2) TRACE CSF Volume (Tube 3) 2.7 CSF Supernatant Color (tube 3) CLEAR CSF Volume (Tube 4) 4.2 CSF Supernatant Color (tube 4) CLEAR CSF WBC (Tube 4) 3 CSF RBC (Tube 4) 7 CSF Neutrophils 30 CSF Lymphocytes 30 CSF Monocytes 40 CSF Glucose 91 CSF Total Protein 64.8 Total Bilirubin 0.1 Direct Bilirubin LESS THAN 0.1 Indirect Bilirubin 0.0 Aspartate Amino Transf 82 (AST/SGOT) Alanine Aminotransferase 99 (ALT/SGPT) Alkaline Phosphatase 142 Total Protein 5.7 Albumin 2.0 Date/Time Procedure Status Source Growth 04/21/17 20:40 Gram Stain - Final Resulted Cerebral Spinal Fluid Lumbar Puncture 04/21/17 20:40 CSF Culture - Preliminary Resulted Cerebral Spinal Fluid Lumbar Puncture NO GROWTH IN 24 HOURS. 04/21/17 20:40 Acid Fast Stain Received Cerebral Spinal Fluid Lumbar Puncture Pending 04/21/17 20:40 Mycobacterial Culture Received Cerebral Spinal Fluid Lumbar Puncture Pending Imaging Last Impressions Head/Brain Mag Res Venography 04/21/17 0000 Signed Impressions: Service Date/Time: Friday, April 21, 2017 14:09 - CONCLUSION: Negative Boubacar Pearl MD Head Magnetic Resonance Angiography 04/21/17 0000 Signed Impressions: Service Date/Time: Friday, April 21, 2017 14:09 - CONCLUSION: Normal examination. Boubacar Pearl MD Brain MRI 04/20/17 0000 Signed Impressions: Service Date/Time: Thursday, April 20, 2017 14:14 - CONCLUSION: Symmetric bilateral frontal and parietal high convexity cortical edema. Unusual appearance in which venous infarction and encephalitis should be considered among the differential possibilities. Boubacar Pearl MD Chest CT 04/19/17 0000 Signed Impressions: Service Date/Time: Wednesday, April 19, 2017 17:19 - CONCLUSION: 1. Posterior bibasilar patchy opacities consistent with atelectasis and/or mild infiltrates. Clinical correlation is recommended. 2. Tiny bilateral pleural effusions. 3. Cardiomegaly and coronary artery calcifications. 4. Degenerative changes and scoliosis of the thoracic spine. Rolando Rowe MD Abdomen/Pelvis CT 04/19/17 0000 Signed Impressions: Service Date/Time: Wednesday, April 19, 2017 17:16 - CONCLUSION: 1. Tiny bilateral pleural effusions with adjacent patchy infiltrates consistent with atelectasis and/or pneumonia. Clinical correlation is recommended. 2. No acute intraabdominal process. 3. Cardiomegaly and coronary artery calcifications. 4. Degenerative changes and scoliosis of the thoracolumbar spine. Rolando Rowe MD Chest X-Ray 04/18/17 0000 Signed Impressions: Service Date/Time: Tuesday, April 18, 2017 04:03 - CONCLUSION: No significant change Boubacar Pearl MD Head CT 04/17/17 1212 Signed Impressions: Service Date/Time: Monday, April 17, 2017 14:38 - CONCLUSION: Slight atrophic and small vessel ischemic changes without any evidence for acute hemorrhage or mass effect. Omer Urena MD Abdomen Ultrasound 04/17/17 0000 Signed Impressions: Service Date/Time: Monday, April 17, 2017 15:56 - CONCLUSION: 1. Nonvisualization of the common bile duct, pancreas and spleen. 2. Simple cyst left kidney. Dariusz Louis MD Physical Exam HEENT: normocephalic; atraumatic; no jaundice. CHEST: Chest is clear to auscultation and percussion. OETT to vent CARDIAC: Regular rate and rhythm with no murmur gallop or rubs. ABDOMEN: Soft, nondistended, nontender; no hepatosplenomegaly; bowel sounds are present in all four quadrants. EXTREMITIES: No clubbing, cyanosis, or edema. SKIN: Normal; no rash; no jaundice. 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 (Cory Duque) Assessment and Plan Plan - Acute on chronic anemia- likely multi factorial, this could be chronic dz related, but GI bleed couldn't be excluded. No obvious bleeding reported, stools for Hemoccult Pending. Pradaxa on hold, currently on Heparin He is receiving TF through [facility] and tolerating well. No documented EGD/colonoscopy, Ct as below hgb stable - C-diff- Stools came (+) for C-diff and Epid 027, he is on Vancomycin, Flagyl has been ordered by [facility] - Elevated LFTs- Improving- likely ischemic effect, he did have episodes of hypotension. hepatitis panel (-), will monitor for now. Hepatitis panel negative CT of abd/pelvis on (04/19/17) 1. Tiny bilateral pleural effusions with adjacent patchy infiltrates consistent with atelectasis and/or pneumonia. Clinical correlation is recommended. 2. No acute intraabdominal process. 3. Cardiomegaly and coronary artery calcifications. 4. Degenerative changes and scoliosis of the thoracolumbar spine. US on (04/17)---> Nonvisualization of the common bile duct, pancreas and spleen. 2. Simple cyst left kidney. - AMS- blood cx negative so far, urine cx negative - Acute respiratory failure- intubated by [facility] - Acute kidney injury - A-fib ( on Pradaxa, this is on hold now), dementia, DM, HTN per attending - Palliative care on the case, family wish for aggressive tx Plan: - TF per attending - No obvious bleeding, will hold off on EGD/colonoscopy for now - Stools (+) for c-diff, cont. Vancomycin - Cont. Flagyl - Monitor hh - Transfuse as needed - Await stools for Hemoccult - Monitor LFTs - Supportive care - Patient seen and examined by Dr. Perez and myself and this note is written on his behalf. (Cory Duque) Physician Comments Patient seen and examined Agree with above Continue with current supportive care Monitor labs (Emile Perez MD) Cory Duque Apr 22, 2017 16:05 Emile Perez MD Apr 22, 2017 19:29
--- NOTE | 2017-04-22 16:48 | HHI.CCPN ---
Subjective Remarks/Hospital Course The patient is a 76-year-old correction resident with a past medical history of hypothyroidism, hypertension, diabetes mellitus, dementia, seizure disorder, atrial fibrillation on Pradaxa who presented to the [facility] Emergency Department for confusion and altered mental status. The patient was also found hypothermic with a temperature of 88.9 rectally. His laboratory data showed acute kidney injury with creatinine level 1.37 and hyperkalemia with a potassium level 6.0. His lactic acid level measured at 0.8. In addition, he was found to have elevated liver enzymes with AST 177, ALT 168 and total bilirubin less than 0.1. Due to altered mental status, the patient was intubated with etomidate, vecuronium and placed on full mechanical ventilation. CT scan of the brain obtained in the emergency department showed slight atrophic and small vessel ischemic changes without any evidence for acute hemorrhage or mass effect. Chest x-ray post intubation showed right upper lobe and left lower lobe densities and adequate placement of the ET tube. In the emergency room, the patient was given approximately 1.5 liters of crystalloids in addition to vancomycin and Zosyn for possible aspiration pneumonia. Other significant labs showed a TSH of 11.0 and a random cortisol level of 9.7. He was also be given Decadron 10 mg IV push. ABG post-intubation showed a pH of 7.43, CO2 38, pAO2 186, bicarb 25, saturation 98% on assist control ventilation with a rate of 16, tidal volume 500, PEEP of 5 and FIO2 of 50%. When seen in the emergency room, he was sedated with Versed. 04/18 Patient is intubated and sedated with Versed 5mg started on Levophed 4 mics overnight. Hgb 6.8 this morning. 04/19 Patient remains intubated with versed. Off Levophed. s/p transfusion 1unit PRBC yesterday. 04/20 Patient is off Levophed,on Versed 2mg/hr. Tmax 100.4 04/21: off pressors. remains encephalopathic. going for MRA/MRV. plan for LP after if negative. hgb 7 this morning. 04/22: no meaningful change. remains encephalopathic. intermittently tracks. LP without overt evidence of bacterial infection. will need to start thinking about trach if the family continues to want to be aggressive. Objective Vital Signs Date Time Temp Pulse Resp B/P Pulse Ox O2 Delivery O2 Flow Rate FiO2 04/22/17 12:55 100 35 04/22/17 12:00 97.9 77 15 152/70 04/22/17 08:34 Ventilator Intake and Output 04/21/17 04/21/17 04/22/17 08:00 16:00 00:00 Intake Total 1392 ml 1678 ml 1522 ml Output Total 1000 ml 1800 ml 1200 ml Balance 392 ml -122 ml 322 ml Result Diagram: 04/21/17 0400 04/21/17 0400 Imaging Last Impressions Brain MRI 04/20/17 0000 Signed Impressions: Service Date/Time: Thursday, April 20, 2017 14:14 - CONCLUSION: Symmetric bilateral frontal and parietal high convexity cortical edema. Unusual appearance in which venous infarction and encephalitis should be considered among the differential possibilities. Boubacar Pearl MD Chest CT 04/19/17 0000 Signed Impressions: Service Date/Time: Wednesday, April 19, 2017 17:19 - CONCLUSION: 1. Posterior bibasilar patchy opacities consistent with atelectasis and/or mild infiltrates. Clinical correlation is recommended. 2. Tiny bilateral pleural effusions. 3. Cardiomegaly and coronary artery calcifications. 4. Degenerative changes and scoliosis of the thoracic spine. Rolando Rowe MD Abdomen/Pelvis CT 04/19/17 0000 Signed Impressions: Service Date/Time: Wednesday, April 19, 2017 17:16 - CONCLUSION: 1. Tiny bilateral pleural effusions with adjacent patchy infiltrates consistent with atelectasis and/or pneumonia. Clinical correlation is recommended. 2. No acute intraabdominal process. 3. Cardiomegaly and coronary artery calcifications. 4. Degenerative changes and scoliosis of the thoracolumbar spine. Rolando Rowe MD Chest X-Ray 04/18/17 0000 Signed Impressions: Service Date/Time: Tuesday, April 18, 2017 04:03 - CONCLUSION: No significant change Boubacar Pearl MD Head CT 04/17/17 1212 Signed Impressions: Service Date/Time: Monday, April 17, 2017 14:38 - CONCLUSION: Slight atrophic and small vessel ischemic changes without any evidence for acute hemorrhage or mass effect. Omer Urena MD Abdomen Ultrasound 04/17/17 0000 Signed Impressions: Service Date/Time: Monday, April 17, 2017 15:56 - CONCLUSION: 1. Nonvisualization of the common bile duct, pancreas and spleen. 2. Simple cyst left kidney. Dariusz Louis MD Objective Remarks GENERAL: Patient is 76 yo intubated male, critically ill, obtunded. encephalopathic. SKIN: Warm and dry. HEAD: Normocephalic. EYES: No scleral icterus. No injection or drainage. NECK: trachea midline. No JVD CARDIOVASCULAR: Regular rate and rhythm. RESPIRATORY: Breath sounds equal bilaterally. No accessory muscle use. GASTROINTESTINAL: Abdomen soft, non-tender, nondistended. MUSCULOSKELETAL: No cyanosis, or edema. Neuro: encephalopathic. tracks with eyes. does not withdraw to pain or follow commands. very weak intermittent cough. A/P Assessment and Plan 1. VDRF 2. Aspiration pneumonia. 3. Acute kidney injury. 4. s/p Hyperkalemia. 5. Elevated liver enzymes. 6. History of atrial fibrillation on Pradaxa. 7. Diabetes mellitus. 8. Hypertension. 9. Anemia. 10. Hypothyroidism. 11. History of dementia and seizure disorder. 12. Positive C-diff. Plan: Neuro: d/c versed, hold all sedatives unless patients neuro status improves. Monitor neuro status MRV brain planned for today. Discussed with Neuro- MRA brain, and MRV brain negative. continue on Acyclovir - adjust dose per renal function. LP done, serologies pending. CT brain in the ER showed no evidence of any acute hemorrhage or mass effect. Dilantin level: 18 04/19 EEG 04/19- mod- severe encephalopathy- Neuro is following Pulm: Continue with vent support and maintain sats above 92%. Bronchodilators, ICU vent bundle. SBT trials as lobo. CT chest: Posterior bibasilar patchy opacities consistent with atelectasis and/or mild infiltrates. will need tracheostomy and placement if aggressive care is continued. palliative care following. will get general surgery involved for trach if family requests. CV: Monitor HR and BP keep MAP>65mmHg Lactic acid level measured at 0.8. Continue with IVF On stress dose steroids- HC 100mg IV Q8 : Monitor renal function, intake and output and avoid nephrotoxins. Cr: downtrending , IVF D5W@84ml/hr, Free water 250ml Q8, monitor sodium level. GI: Monitor LFT's, follow up on Hepatitis profile. US abdomen: Nonvisualization of the common bile duct, pancreas and spleen. Simple cyst left kidney Normal liver, no gallstones. 04/19 CT abdomen/pelvis: No acute abd process. on Protonix 40mg IV daily for GI prophylaxis. On tube feeds-- Glucerna 1.5 @45ml/h ID: Given Vancomycin and Zosyn in ED. ID is following. ID: Dr. Kumar following. agree with continuing acyclovir and adding doxycycline. Endo: SSI with Accu-Chek q. 4 hours for glycemic control. On Synthroid 50 mcg daily. 04/17 TSH level: 11.0. FT4:0.69(L), FT3 level: 1.67(L) Recheck thyroid panel in am. Random cortisol level measured 9.7. On Sterids- HC 100mg IV Q8 Heme: Monitor CBC s/p transfusion 1unit PRBC on 04/18 Check Hemoccult stool, GI eval. DVT prophylaxis with SCDs, heparin SQ on hold given anemia requiring blood transfusion GI prophylaxis- On Protonix 40mg IV BID Lines: Left subclavian CVP placed 04/18 Palliative care eval to asses with goals of care Armando Green MD Apr 22, 2017 16:48
[2017-04-22] MEDS ORDERED: HYOSCYAMINE SOLN 0.125 MG/ML 15 ML BTL SL PRN (17:30)
[2017-04-22] MEDS: PIPERACIL-TAZO 3.375 GM PREMIX 50 ML IV SCH (18:25)
--- NOTE | 2017-04-22 21:31 | HHI.PR ---
Review/Management Daily Summary 04/[address] Biggs yest reviewed mri brain dx unclear but mri brain abnormal, doubt of herpes encephalitis continue acyclovir if mr venous shows thrombosis then consider anticoag but has anemia!!! if mr venous negative, should proceed with LP for routine studies and hsv pcr 04/22 doing better as he is now more alert and responsive i saw him around 6 pm and he was tracking and had some withdrawal to somatosensory stim mild motor function all 4 limbs i am hopeful he will improve overall functions and we might not need trach neuro dx is a mystery!!!! doubt of herpes encephalitis based on mri, eeg, clinical and initial csf data add csf cytology as well Subjective Subjective Comments No acute events reported Active Medications Current Medications Medications (Trade) Dose Ordered Sig/Miquel Route Start Time Stop Time Status Last Admin (NS Flush) 2 ml UNSCH PRN IV FLUSH 04/17/17 12:15 04/17/17 15:06 (Heparin Inj) 5,000 units Q12H SQ 04/17/17 15:30 Hold 04/20/17 15:25 Miscellaneous Information 1 Q361D XX 04/17/17 15:30 (Chlorhexidine 2% Cloth) 3 pack Taper DAILY@04 TOP 04/18/17 04:00 04/14/18 03:59 04/22/17 04:00 (Chlorhexidine 2% Cloth) 3 pack UNSCH PRN TOP 04/17/17 15:30 (Ramona-Colace) 1 tab BID PO 04/17/17 21:00 04/22/17 08:23 (Milk Of Magnesia Liq) 30 ml Q12H PRN PO 04/17/17 15:30 (Senokot) 17.2 mg Q12H PRN PO 04/17/17 15:30 (Dulcolax Supp) 10 mg DAILY PRN RECTAL 04/17/17 15:30 (Lactulose Liq) 30 ml DAILY PRN PO 04/17/17 15:30 Levothyroxine Sodium 50 mcg 50 mcg DAILY@0600 PO 04/17/17 15:30 04/22/17 06:42 Potassium Chloride 100 ml @ 50 mls/hr Q2H PRN IV 04/18/17 07:30 (KCl 20 Meq Premix Inj) 100 ml @ 50 mls/hr Q2H PRN IV 04/18/17 07:30 Potassium Bicarb/ Potassium Chloride 50 meq 50 meq UNSCH PRN PO 04/18/17 07:30 Potassium Chloride 100 ml @ 25 mls/hr UNSCH PRN IV 04/18/17 07:30 Potassium Chloride 100 ml @ 50 mls/hr Q2H PRN IV 04/18/17 07:30 04/19/17 07:53 (Magnesium Sulfate Inj/NS Inj) 100 ml @ 50 mls/hr UNSCH PRN IV 04/18/17 07:30 Magnesium Oxide 800 mg 800 mg UNSCH PRN PO 04/18/17 07:30 (Magnesium Sulfate Inj/NS Inj) 100 ml @ 50 mls/hr UNSCH PRN IV 04/18/17 07:30 Potassium Phosphate 2000 mg 2,000 mg Q4H PRN PO 04/18/17 07:30 (Sodium Phosphate Inj/NS 250 ml Inj) 250 ml @ 42 mls/hr UNSCH PRN IV 04/18/17 07:30 04/18/17 10:40 Potassium Phosphate 2000 mg 2,000 mg UNSCH PRN PO/TUBE 04/18/17 07:30 Potassium Phosphate 30 mmol/ Sodium Chloride 260 ml @ 42 mls/hr UNSCH PRN IV 04/18/17 07:30 (D5W 1000 ml Inj) 1,000 ml @ 84 mls/hr [id number] IV 04/18/17 07:30 04/22/17 15:36 (Free Water) 250 ml Q8H G-TUBE 04/18/17 08:00 04/22/17 16:00 (SoluCORTEF INJ) 100 mg Q8H IV PUSH 04/18/17 08:00 04/22/17 18:24 (Lactulose Liq) 15 ml BID PO 04/19/17 14:00 04/22/17 08:22 (Dilantin Inj) 100 mg Q8HR IV 04/19/17 22:00 04/22/17 18:24 (Protonix Inj) 40 mg BID IV 04/20/17 21:00 04/22/17 08:22 Metronidazole 500 mg 500 mg Q8HR PO 04/20/17 17:30 04/22/17 18:24 (Zovirax Inj/NS 250 ml Inj) 150 ml @ 150 mls/hr Q12H IV 04/20/17 18:00 04/22/17 18:25 Miscellaneous Information SPECIFIC LAB TO BE DRAWN:VANCO TROUGH DATE TO BE . 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) Review of Systems All other ROS: ROS reviewed as documented in chart Exam I&O / VS 04/21/17 04/21/17 04/22/17 14:59 22:59 06:59 Intake Total 1678 ml 1522 ml 1125 ml Output Total 1800 ml 1200 ml 950 ml Balance -122 ml 322 ml 175 ml IV Total 843 ml 800 ml 779 ml Tube Feeding 335 ml 472 ml 346 ml Other 500 ml 250 ml Output Urine Total 1100 ml 900 ml 550 ml Stool Total 700 ml 300 ml 400 ml Vital Signs Date Time Temp Pulse Resp B/P Pulse Ox O2 Delivery O2 Flow Rate FiO2 04/22/17 19:00 97.7 77 129/60 98 04/22/17 18:30 98.1 76 136/65 100 04/22/17 18:00 74 134/64 99 04/22/17 17:30 98.1 76 123/60 100 04/22/17 17:00 98.1 72 143/67 100 04/22/17 16:57 98 35 04/22/17 16:30 98.1 73 148/68 100 04/22/17 16:00 98.1 81 156/69 100 04/22/17 16:00 35 04/22/17 15:30 98.1 81 145/67 100 04/22/17 15:00 98.1 72 136/64 100 04/22/17 14:30 97.9 76 152/68 100 04/22/17 14:00 97.9 72 142/67 100 04/22/17 13:30 97.9 97 170/74 99 04/22/17 13:00 97.9 74 154/72 100 04/22/17 12:55 100 35 04/22/17 12:00 97.9 77 15 152/70 100 04/22/17 12:00 35 04/22/17 11:00 97.9 78 15 142/66 100 04/22/17 10:00 97.5 76 16 146/69 100 04/22/17 09:00 97.7 92 15 142/67 99 04/22/17 08:34 100 Ventilator 35 04/22/17 08:34 100 35 04/22/17 08:34 35 04/22/17 08:00 35 04/22/17 08:00 97.7 76 16 119/58 100 04/22/17 07:00 98.4 74 16 121/58 100 04/22/17 06:00 79 04/22/17 04:00 82 04/22/17 04:00 35 04/22/17 04:00 99.1 82 16 120/59 99 04/22/17 03:25 100 35 04/22/17 02:00 85 04/22/17 00:00 99.8 89 16 107/59 98 04/22/17 00:00 89 04/22/17 00:00 35 04/21/17 23:26 97 35 04/21/17 22:00 86 General: No acute distress Eye: EOMI Cardiology: Normal rate Objective Micro and Labs Laboratory Tests Test 04/22/17 04:16 Total Bilirubin 0.1 Direct Bilirubin LESS THAN 0.1 Indirect Bilirubin 0.0 Aspartate Amino Transf 82 (AST/SGOT) Alanine Aminotransferase 99 (ALT/SGPT) Alkaline Phosphatase 142 Total Protein 5.7 Albumin 2.0 Date/Time Procedure Status Source Growth 04/21/17 20:40 Gram Stain - Final Resulted Cerebral Spinal Fluid Lumbar Puncture 04/21/17 20:40 CSF Culture - Preliminary Resulted Cerebral Spinal Fluid Lumbar Puncture NO GROWTH IN 24 HOURS. 04/21/17 20:40 Acid Fast Stain Received Cerebral Spinal Fluid Lumbar Puncture Pending 04/21/17 20:40 Mycobacterial Culture Received Cerebral Spinal Fluid Lumbar Puncture Pending iDxon Rasmussen MD Apr 22, 2017 21:31
[2017-04-22] MEDS ORDERED: ETOMIDATE 20 MG/10 ML VIAL ONE (21:52)
[2017-04-23] VITALS (55 sets, daily range): BP systolic 87–179; BP diastolic 54–80; PULSE 62–91; RESP 14–16; TEMP 97.6–97.7; O2SAT 78–100
[2017-04-23] MEDS: PIPERACIL-TAZO 3.375 GM PREMIX 50 ML IV SCH ×3 (02:00→18:21)
[2017-04-23] MEDS: CHLORHEXIDINE GLUCONATE 2 % 1 PACK (2 CLOTHS) TOP SCH (03:38)
[2017-04-23 04:38] LABS: HEMATOCRIT 21.5 % (39.0-51.0); MEAN CELL VOLUME 93.2 FL (80.0-100.0); MEAN CORPUSCULAR HEMOGLOBIN 31.1 PG (27.0-34.0); MEAN CORPUSCULAR HGB CONC 33.4 % (32.0-36.0); PLATELET COUNT 138 TH/MM3 (150-450); RED CELL DISTRIBUTION WIDTH 18.2 % (11.6-17.2); REVIEW FLAG FINAL; WHITE BLOOD COUNT 10.9 TH/MM3 (4.0-11.0)
[2017-04-23] MEDS: ACYCLOVIR IV SCH (06:00)
[2017-04-23] MEDS: SODIUM CHLOR 0.9% IV SCH (06:00)
[2017-04-23] MEDS: LEVOTHYROXINE SODIUM 50 MCG TAB PO SCH (06:00)
[2017-04-23] MEDS: metroNIDAZOLE 500 MG TAB PO SCH ×3 (06:00→22:45)
[2017-04-23] MEDS: PHENYTOIN INJ 100 MG/2 ML VIAL IV SCH ×3 (06:00→22:45)
[2017-04-23] MEDS: DEXTROSE 5% IN WATE 1000ML INJ 1,000 ML IV SCH (06:09)
[2017-04-23] MEDS: FREE WATER G-TUBE SCH ×3 (08:00→16:00)
[2017-04-23] MEDS: HYDROCORTISONE SOD SUCCINATE 100 MG VIAL IV PUSH SCH ×3 (08:36→16:05)
[2017-04-23] MEDS: PANTOPRAZOLE SODIUM 40 MG VIAL IV SCH ×2 (08:36→20:14)
[2017-04-23] MEDS: DOCUSATE SODIUM 50 MG/SENNA 8.6 MG TAB PO SCH ×2 (08:36→20:14)
[2017-04-23] MEDS: LACTULOSE SYRUP 20 GM/30 ML CUP PO SCH ×2 (08:36→20:14)
[2017-04-23 09:35] LABS: HSV 1,PCR Negative (Negative)
--- NOTE | 2017-04-23 09:40 | HHI.CCPN ---
Subjective Remarks/Hospital Course The patient is a 76-year-old intermediate resident with a past medical history of hypothyroidism, hypertension, diabetes mellitus, dementia, seizure disorder, atrial fibrillation on Pradaxa who presented to the [facility] Emergency Department for confusion and altered mental status. The patient was also found hypothermic with a temperature of 88.9 rectally. His laboratory data showed acute kidney injury with creatinine level 1.37 and hyperkalemia with a potassium level 6.0. His lactic acid level measured at 0.8. In addition, he was found to have elevated liver enzymes with AST 177, ALT 168 and total bilirubin less than 0.1. Due to altered mental status, the patient was intubated with etomidate, vecuronium and placed on full mechanical ventilation. CT scan of the brain obtained in the emergency department showed slight atrophic and small vessel ischemic changes without any evidence for acute hemorrhage or mass effect. Chest x-ray post intubation showed right upper lobe and left lower lobe densities and adequate placement of the ET tube. In the emergency room, the patient was given approximately 1.5 liters of crystalloids in addition to vancomycin and Zosyn for possible aspiration pneumonia. Other significant labs showed a TSH of 11.0 and a random cortisol level of 9.7. He was also be given Decadron 10 mg IV push. ABG post-intubation showed a pH of 7.43, CO2 38, pAO2 186, bicarb 25, saturation 98% on assist control ventilation with a rate of 16, tidal volume 500, PEEP of 5 and FIO2 of 50%. When seen in the emergency room, he was sedated with Versed. 04/18 Patient is intubated and sedated with Versed 5mg started on Levophed 4 mics overnight. Hgb 6.8 this morning. 04/19 Patient remains intubated with versed. Off Levophed. s/p transfusion 1unit PRBC yesterday. 04/20 Patient is off Levophed,on Versed 2mg/hr. Tmax 100.4 04/21: off pressors. remains encephalopathic. going for MRA/MRV. plan for LP after if negative. hgb 7 this morning. 04/22: no meaningful change. remains encephalopathic. intermittently tracks. LP without overt evidence of bacterial infection. will need to start thinking about trach if the family continues to want to be aggressive. 04/23 Patient had malfunction ETT last night and was reintubated. Afebrile. Objective Vital Signs Date Time Temp Pulse Resp B/P Pulse Ox O2 Delivery O2 Flow Rate FiO2 04/23/17 08:26 40 04/23/17 08:10 100 04/23/17 08:10 Ventilator 40.00 04/23/17 07:30 95.9 75 128/60 04/22/17 12:00 15 Intake and Output 04/22/17 04/22/17 04/23/17 08:00 16:00 00:00 Intake Total 1125 ml 2280 ml Output Total 950 ml 1875 ml Balance 175 ml 405 ml Result Diagram: 04/23/17 0400 04/23/17 0400 Other Results Laboratory Tests Test 04/23/17 04:00 White Blood Count 10.9 TH/MM3 Red Blood Count 2.30 MIL/MM3 Hemoglobin 7.2 GM/DL Hematocrit 21.5 % Mean Corpuscular Volume 93.2 FL Mean Corpuscular Hemoglobin 31.1 PG Mean Corpuscular Hemoglobin 33.4 % Concent Red Cell Distribution Width 18.2 % Platelet Count 138 TH/MM3 Mean Platelet Volume 8.0 FL Sodium Level 142 MEQ/L Potassium Level 3.0 MEQ/L Chloride Level 109 MEQ/L Carbon Dioxide Level 24.0 MEQ/L Anion Gap 9 MEQ/L Blood Urea Nitrogen 23 MG/DL Creatinine 1.07 MG/DL Estimat Glomerular Filtration 81 ML/MIN Rate Random Glucose 136 MG/DL Calcium Level 8.0 MG/DL Imaging Last Impressions Head/Brain Mag Res Venography 04/21/17 0000 Signed Impressions: Service Date/Time: Friday, April 21, 2017 14:09 - CONCLUSION: Negative Boubacar Pearl MD Head Magnetic Resonance Angiography 04/21/17 0000 Signed Impressions: Service Date/Time: Friday, April 21, 2017 14:09 - CONCLUSION: Normal examination. Boubacar Pearl MD Brain MRI 04/20/17 0000 Signed Impressions: Service Date/Time: Thursday, April 20, 2017 14:14 - CONCLUSION: Symmetric bilateral frontal and parietal high convexity cortical edema. Unusual appearance in which venous infarction and encephalitis should be considered among the differential possibilities. Boubacar Pearl MD Chest CT 04/19/17 0000 Signed Impressions: Service Date/Time: Wednesday, April 19, 2017 17:19 - CONCLUSION: 1. Posterior bibasilar patchy opacities consistent with atelectasis and/or mild infiltrates. Clinical correlation is recommended. 2. Tiny bilateral pleural effusions. 3. Cardiomegaly and coronary artery calcifications. 4. Degenerative changes and scoliosis of the thoracic spine. Rolando Rowe MD Abdomen/Pelvis CT 04/19/17 0000 Signed Impressions: Service Date/Time: Wednesday, April 19, 2017 17:16 - CONCLUSION: 1. Tiny bilateral pleural effusions with adjacent patchy infiltrates consistent with atelectasis and/or pneumonia. Clinical correlation is recommended. 2. No acute intraabdominal process. 3. Cardiomegaly and coronary artery calcifications. 4. Degenerative changes and scoliosis of the thoracolumbar spine. Rolando Rowe MD Chest X-Ray 04/18/17 0000 Signed Impressions: Service Date/Time: Tuesday, April 18, 2017 04:03 - CONCLUSION: No significant change Boubacar Pearl MD Head CT 04/17/17 1212 Signed Impressions: Service Date/Time: Monday, April 17, 2017 14:38 - CONCLUSION: Slight atrophic and small vessel ischemic changes without any evidence for acute hemorrhage or mass effect. Omer Urena MD Abdomen Ultrasound 04/17/17 0000 Signed Impressions: Service Date/Time: Monday, April 17, 2017 15:56 - CONCLUSION: 1. Nonvisualization of the common bile duct, pancreas and spleen. 2. Simple cyst left kidney. Dariusz Louis MD Objective Remarks GENERAL: Patient is 76 yo intubated male, critically ill, obtunded. encephalopathic. SKIN: Warm and dry. HEAD: Normocephalic. EYES: No scleral icterus. No injection or drainage. NECK: trachea midline. No JVD CARDIOVASCULAR: Regular rate and rhythm. RESPIRATORY: Breath sounds equal bilaterally. No accessory muscle use. GASTROINTESTINAL: Abdomen soft, non-tender, nondistended. MUSCULOSKELETAL: No cyanosis, or edema. Neuro: encephalopathic. tracks with eyes. does not withdraw to pain or follow commands. very weak intermittent cough. A/P Assessment and Plan 1. VDRF 2. Aspiration pneumonia. 3. Acute kidney injury. 4. s/p Hyperkalemia. 5. Elevated liver enzymes. 6. History of atrial fibrillation on Pradaxa. 7. Diabetes mellitus. 8. Hypertension. 9. Anemia. 10. Hypothyroidism. 11. History of dementia and seizure disorder. 12. Positive C-diff. Plan: Neuro: Monitor neuro status and avoid sedatives. MRA brain, and MRV brain negative. continue on Acyclovir HSV PCR pending. LP done 04/21- clear CSF, elevated glc and protein CT brain in the ER showed no evidence of any acute hemorrhage or mass effect. Dilantin level: 18 04/19, recheck level today, on Dilantin 100mg Q8 EEG 04/19- mod- severe encephalopathy- Neuro is following Pulm: Continue with vent support and maintain sats above 92%. Bronchodilators, ICU vent bundle. SBT trials as lobo. Check CXR/ ABG CT chest: Posterior bibasilar patchy opacities consistent with atelectasis and/or mild infiltrates. will need tracheostomy and placement if aggressive care is continued. palliative care following. will get general surgery involved for trach if family requests. CV: Monitor HR and BP keep MAP>65mmHg Lactic acid level measured at 0.8. On stress dose steroids- HC 100mg IV Q8 : Monitor renal function, intake and output and avoid nephrotoxins. Will need K replacement today Free water 250ml Q8, monitor sodium level. d/c IVF. GI: Monitor LFT's, Hepatitis profile negative US abdomen: Nonvisualization of the common bile duct, pancreas and spleen. Simple cyst left kidney Normal liver, no gallstones. 04/19 CT abdomen/pelvis: No acute abd process. on Protonix 40mg IV daily for GI prophylaxis. On tube feeds-- Glucerna 1.5 @45ml/h GI is following for anemia- no intervention at this time. ID: Given Vancomycin and Zosyn in ED. ID is following. ID: Dr. Kumar following. On ( Zosyn, Flagyl, Acyclovir) d/c acyclovir if HSV PCR is negative Endo: SSI with Accu-Chek q. 4 hours for glycemic control. On Synthroid 50 mcg daily. 04/17 TSH level: 11.0. FT4:0.69(L), FT3 level: 1.67(L) 04/21: TSH: 3, Random cortisol level measured 9.7. On Sterids- HC 100mg IV Q8 Heme: Monitor CBC s/p transfusion 1unit PRBC on 04/18 DVT prophylaxis with SCDs, heparin SQ on hold given anemia requiring blood transfusion GI prophylaxis- On Protonix 40mg IV BID Lines: Left subclavian CVP placed 04/18 Palliative care is following Level 3 Jennifer Restrepo MD Apr 23, 2017 09:40
[2017-04-23] MEDS: POTASSIUM CHLOR 40 MEQ PREMIX 100 ML IV PRN ×2 (10:19→12:57)
[2017-04-23 10:45] LABS: CMV PCR SPECIMEN SOURCE CSF (())
--- NOTE | 2017-04-23 10:49 | RADRPT ---
EXAM DATE/TIME: 04/23/2017 09:42 [place] COMPARISON: CHEST SINGLE AP, April 18, 2017, 4:03. INDICATIONS : Respiratory distress. MEDICAL HISTORY : Hypertension. Diabetes mellitus type 1. Seizures. A-fib SURGICAL HISTORY : None. ENCOUNTER: Subsequent ACUITY: 4 - 6 days PAIN SCORE: Non-responsive. LOCATION: Bilateral chest FINDINGS: Support apparatus in good position. Minimal parenchymal changes left lung base. The heart and pulmon maggie vascularity are normal. The portion of the bony skeleton visualized is unremarkable. CONCLUSION: Support apparatus in good position. Minimal parenchymal changes left lung base , Improving in the interval. Иван Flor MD FACR on April 23, 2017 at 10:46 Board Certified Radiologist. This report was verified electronically.
[2017-04-23 11:32] LABS: BLOOD GAS CARBOXYHEMOGLOBIN 1.3 % (0-4); BLOOD GAS HCO3 23 mmol/L (22-26); BLOOD GAS METHEMOGLOBIN 1.2 % (0-2); BLOOD GAS O2 HGB SATURATION 97 % (90-100); BLOOD GAS OXYGEN CONTENT 11.7 Vol % (12.0-20.0); BLOOD GAS PCO2 33 mmHg (38-42); BLOOD GAS PO2 160 mmHg (61-120); BLOOD GAS TOTAL HGB 8.4 G/DL (12.0-16.0); CRITICAL VALUE NO; TEMP CORR TO 98.6
[2017-04-23 11:33] LABS: DRAW SITE RT RADIAL; FIO2 40 %; NUMBER OF ARTERIAL PUNCTURES 1; OXYGEN DEVICE VENTILATOR; STAT NO; ULNAR PULSE PRESENT; VENT SETTINGS 500/16/+5
[2017-04-23] MEDS ORDERED: PHARMACY ORDERED LAB ONE (12:45)
[2017-04-23] MEDS: fentaNYL DRIP 250 ML IV SCH ×2 (12:58→22:52)
--- NOTE | 2017-04-23 14:38 | HHI.HCPN ---
Reason for visit a. To assist with evaluation and management of symptoms including: Shortness of breath and debility. b. To assist medical decision maker(s) with: better understanding of current medical conditions; weighing benefits/burdens of medical treatment options; making medical treatment decisions. . Subjective/Interval History Mr. Rivera is a 76 y/o male known to palliative care with a medical history of dementia, atrial fibrillation on anticoagulation, seizures, hypertension, schizophrenia and chronic kidney disease. Patient presented to ED on 04/17/17 via EMS for evaluation of altered mental status. He was intubated for airway protection and transferred to ICU for further management. Palliative care has been consulted for further clarifications of goals of care given patient's multiple comorbidities and current clinical condition. Patient on day #6 of endotracheal intubation. He had malfunction of ETT overnight and required reintubation. Patient afebrile, stable hemodynamically. FiO2 40%, oxygen saturation in the high 90s. Chest x-ray revealing minimal parenchymal changes to the left lung base. Laboratory workup today showing WBC 10.9, Hgb 7.2, platelet count 18.2. Sodium 142, potassium 3.0, BUN/creatinine 23/1.07. Negative HSV PCR, ID following. Patient opening eyes, tracking intermittently to voice. Not following any commands during my visit. Telephone conversation with patient's daughter Suzi Ortiz. Medical update provided. Reviewed some improvement in patient's neurological status, seems somewhat more alert today. However, not following any commands. Shared concerns about patient's ability to medically extubate /protect his airway if mental status is unchanged. Discussed tracheostomy and PEG tube placement to include benefits, risks and limitations given patient's multiple comorbidities, dementia, profound physical deconditioning and advanced age. Goal of therapy at this time is to allow the weekend to evaluate patient's clinical condition. Family receptive to continue goals of care discussion early next week. Case discussed with bedside JARED Krause. . Family/friend interactions See interval note. . Advance Directives Durable Power of Customer Experience Intern: Copy in medical record Advance Directive Specifics Date completed: 05/04/2014 -- THIS IS A [place] [employer] POWER OF FIRE HOSE CURER DOCUMENT. IT DOES NOT REFER TO HEALTH CARE DECISION MAKING. Financial decision making is given to Chad Rivera. Health Care Surrogate(s): During previous hospitalization, all available children were previously contacted by palliative care. All have deferred health care decision making to two of the children Chad and Suzi as co-HCP. * Chad Rivera (son) who lives in [place] [phone] * Suzi Ortiz (daughter) who lives in [facility] [phone] . Documented care wishes: No living will completed. During the previous hospitalization, the family continued to want aggressive care, including intubation for some number of days. Significant change in goals: Alt code/intubation only. Continue with conservative management short of no cardiac code. . Objective Vital Signs Date Time Temp Pulse Resp B/P Pulse Ox O2 Delivery O2 Flow Rate FiO2 04/23/17 13:30 97.2 73 135/64 100 04/23/17 13:00 97.2 73 139/63 100 04/23/17 12:30 97.0 77 138/64 100 04/23/17 12:15 98 40 04/23/17 12:00 97.0 74 145/67 100 04/23/17 12:00 35 04/23/17 12:00 74 04/23/17 11:30 96.8 70 142/69 99 04/23/17 11:00 97.0 74 129/60 100 04/23/17 10:34 97.0 73 151/70 100 04/23/17 10:30 97.0 83 179/77 86 04/23/17 10:19 96.8 74 177/76 100 04/23/17 10:00 76 04/23/17 10:00 96.8 76 175/80 100 04/23/17 09:30 96.4 73 119/59 100 04/23/17 09:01 96.4 84 127/60 83 04/23/17 09:00 96.4 71 100 04/23/17 08:31 96.3 91 136/63 90 04/23/17 08:26 40 04/23/17 08:10 100 40 04/23/17 08:10 100 Ventilator 40.00 04/23/17 08:00 35 04/23/17 08:00 74 04/23/17 08:00 96.1 74 126/60 100 04/23/17 07:30 95.9 75 128/60 99 04/23/17 07:15 95.7 74 100 04/23/17 07:00 95.7 74 147/64 100 04/23/17 06:45 95.7 71 100 04/23/17 06:30 95.7 71 129/71 100 04/23/17 06:15 95.5 67 100 04/23/17 06:00 64 04/23/17 06:00 95.4 64 165/70 100 04/23/17 05:45 95.4 65 100 04/23/17 05:30 95.4 67 149/70 100 04/23/17 05:15 95.4 66 100 04/23/17 05:00 95.4 62 139/67 100 04/23/17 04:45 95.4 62 100 04/23/17 04:30 95.5 62 145/70 100 04/23/17 04:15 95.5 64 100 04/23/17 04:00 67 04/23/17 04:00 95.5 67 143/65 100 04/23/17 03:45 95.7 67 100 04/23/17 03:30 95.7 68 133/65 100 04/23/17 03:15 95.9 69 78 04/23/17 03:00 100 40 04/23/17 03:00 96.1 67 144/67 100 04/23/17 02:45 96.3 67 100 04/23/17 02:30 96.4 67 141/67 100 04/23/17 02:15 96.4 67 100 04/23/17 02:00 67 04/23/17 02:00 96.4 67 114/56 100 04/23/17 01:45 96.6 68 100 04/23/17 01:30 96.6 68 118/61 100 04/23/17 01:15 96.8 69 96 04/23/17 01:00 97.0 71 91/55 98 04/23/17 00:45 97.2 73 98 04/23/17 00:30 97.2 73 87/54 100 04/23/17 00:16 100 60 04/23/17 00:15 97.2 72 100 04/23/17 00:00 35 04/23/17 00:00 97.3 77 151/73 99 04/23/17 00:00 97.7 04/23/17 00:00 77 04/22/17 23:45 97.3 75 100 04/22/17 23:30 97.3 72 135/59 100 04/22/17 23:15 97.5 71 100 04/22/17 23:00 97.5 72 117/57 100 04/22/17 22:45 97.5 94 100 04/22/17 22:30 97.5 77 136/63 100 04/22/17 22:15 97.5 78 100 04/22/17 22:00 97.3 73 126/58 100 04/22/17 22:00 73 04/22/17 21:45 97.3 76 100 04/22/17 21:30 97.3 79 137/62 100 04/22/17 21:15 97.3 80 100 04/22/17 21:00 97.3 82 121/59 100 04/22/17 20:45 97.3 79 99 04/22/17 20:30 97.5 76 115/57 99 04/22/17 20:15 97.5 70 99 04/22/17 20:00 97.7 73 138/65 99 04/22/17 20:00 35 04/22/17 20:00 73 04/22/17 20:00 98.0 04/22/17 19:00 97.7 77 129/60 98 04/22/17 18:30 98.1 76 136/65 100 04/22/17 18:00 74 134/64 99 04/22/17 17:30 98.1 76 123/60 100 04/22/17 17:00 98.1 72 143/67 100 04/22/17 16:57 98 35 04/22/17 16:30 98.1 73 148/68 100 04/22/17 16:00 98.1 81 156/69 100 04/22/17 16:00 35 04/22/17 15:30 98.1 81 145/67 100 04/22/17 15:00 98.1 72 136/64 100 04/22/17 14:30 97.9 76 152/68 100 Intake & Output 04/23/17 04/23/17 07:00 19:00 Intake Total 1635 ml Output Total 1725 ml Balance -90 ml IV Total 1218 ml Tube Feeding 117 ml Other 300 ml Output Urine Total 1525 ml Stool Total 200 ml Physical Exam CONSTITUTIONAL/GENERAL: This is an elderly patient in no apparent distress. Orally intubated on mechanical ventilation. TUBES/LINES/DRAINS: ETT, OG, central line to left chest, Naik catheter, rectal tube, bilateral soft wrist restraints, SCDs. SKIN: No jaundice, rashes, or lesions. Ecchymoses on upper extremities. No wounds seen anteriorly. Not diaphoretic. HEAD: Atraumatic. Normocephalic. EYES: Right eye with conjunctival hemorrhage. Bilateral arcus senilis. No scleral icterus. ENT: Unable to evaluate hearing secondary to clinical condition. Nose without bleeding or purulent drainage. Moist oral mucosa. NECK: Trachea midline. Supple. CARDIOVASCULAR: Regular rate and rhythm. Peripheral pulses symmetric. RESPIRATORY/CHEST: Symmetric, unlabored respirations. Orally intubated on mechanical ventilation. Clear, diminished breath sounds. GASTROINTESTINAL: Abdomen large, round, soft. No guarding. Bowel sounds present. GENITOURINARY: Without palpable bladder distension. Naik catheter in place. MUSCULOSKELETAL: Extremities without clubbing, cyanosis. Edema to bilateral hands. NEUROLOGICAL: Eyes open, intermittently tracking. Not following any commands. PSYCHIATRIC: Unable to evaluate secondary to clinical condition. Appears calm. . Diagnostic Tests Laboratory Laboratory Tests Test 04/21/17 04/21/17 04/21/17 04/22/17 04:00 12:50 20:40 04:16 White Blood Count 8.5 TH/MM3 (4.0-11.0) Red Blood Count 2.25 MIL/MM3 (4.50-5.90) Hemoglobin 7.1 GM/DL (13.0-17.0) Hematocrit 20.8 % (39.0-51.0) Mean Corpuscular Volume 92.6 FL (80.0-100.0) Mean Corpuscular Hemoglobin 31.7 PG (27.0-34.0) Mean Corpuscular Hemoglobin 34.2 % Concent (32.0-36.0) Red Cell Distribution Width 18.5 % (11.6-17.2) Platelet Count 108 TH/MM3 (150-450) Mean Platelet Volume 8.3 FL (7.0-11.0) Neutrophils (%) (Auto) 83.9 % (16.0-70.0) Lymphocytes (%) (Auto) 10.8 % (9.0-44.0) Monocytes (%) (Auto) 5.2 % (0.0-8.0) Eosinophils (%) (Auto) 0.1 % (0.0-4.0) Basophils (%) (Auto) 0.0 % (0.0-2.0) Neutrophils # (Auto) 7.1 TH/MM3 (1.8-7.7) Lymphocytes # (Auto) 0.9 TH/MM3 (1.0-4.8) Monocytes # (Auto) 0.4 TH/MM3 (0-0.9) Eosinophils # (Auto) 0.0 TH/MM3 (0-0.4) Basophils # (Auto) 0.0 TH/MM3 (0-0.2) CBC Comment DIFF FINAL Differential Comment Sodium Level 145 MEQ/L (136-145) Potassium Level 3.6 MEQ/L (3.5-5.1) Chloride Level 113 MEQ/L (98-107) Carbon Dioxide Level 21.9 MEQ/L (21.0-32.0) Anion Gap 10 MEQ/L (5-15) Blood Urea Nitrogen 23 MG/DL (7-18) Creatinine 1.19 MG/DL (0.60-1.30) Estimat Glomerular Filtration 72 ML/MIN (>89) Rate Random Glucose 129 MG/DL (74-106) Calcium Level 7.3 MG/DL (8.5-10.1) Protein Corrected Calcium 8.2 MG/DL (8.5-10.1) Total Bilirubin 0.2 MG/DL 0.1 MG/DL (0.2-1.0) (0.2-1.0) Aspartate Amino Transf 128 U/L (15-37) 82 U/L (15-37) (AST/SGOT) Alanine Aminotransferase 115 U/L (12-78) 99 U/L (12-78) (ALT/SGPT) Alkaline Phosphatase 165 U/L 142 U/L (45-117) (45-117) Total Protein 5.4 GM/DL 5.7 GM/DL (6.4-8.2) (6.4-8.2) Albumin 1.9 GM/DL 2.0 GM/DL (3.4-5.0) (3.4-5.0) Free Thyroxine 0.62 NG/DL (0.76-1.46) Free Triiodothyronine (T3) 0.69 PG/ML pg/dL (2.18-3.98) Thyroid Stimulating Hormone 3.260 uIU/ML 3rd Gen (0.358-3.740) Vancomycin Level Trough 14.7 MCG/ML (5.0-10.0) CSF Volume (Tube 1) 2.5 ML CSF Supernatant Color (tube 1) CLEAR (CLEAR) CSF Gross Blood (Tube 1) 1+ (0) CSF Volume (Tube 2) 2.7 ML CSF Supernatant Color (tube 2) CLEAR (CLEAR) CSF Gross Blood (Tube 2) TRACE (0) CSF Volume (Tube 3) 2.7 ML CSF Supernatant Color (tube 3) CLEAR (CLEAR) CSF Volume (Tube 4) 4.2 ML CSF Supernatant Color (tube 4) CLEAR (CLEAR) CSF WBC (Tube 4) 3 /MM3 (0-10) CSF RBC (Tube 4) 7 /MM3 (NONE) CSF Neutrophils 30 % CSF Lymphocytes 30 % CSF Monocytes 40 % CSF Glucose 91 MG/DL (40-80) CSF Total Protein 64.8 MG/DL (15.0-45.0) CSF Cytomegalovirus DNA Quant Negative (PCR) (Negative) Cytomegalovirus Specimen CSF (()) Source Herpes Simplex Virus I DNA Negative (PCR) (Negative) Herpes Simplex Virus II DNA Negative (PCR) (Negative) Direct Bilirubin LESS THAN 0.1 MG/DL (0.0-0.2) Indirect Bilirubin 0.0 MG/DL (0.0-0.8) Test 04/23/17 04/23/17 04/23/17 04:00 11:17 11:40 White Blood Count 10.9 TH/MM3 (4.0-11.0) Red Blood Count 2.30 MIL/MM3 (4.50-5.90) Hemoglobin 7.2 GM/DL (13.0-17.0) Hematocrit 21.5 % (39.0-51.0) Mean Corpuscular Volume 93.2 FL (80.0-100.0) Mean Corpuscular Hemoglobin 31.1 PG (27.0-34.0) Mean Corpuscular Hemoglobin 33.4 % Concent (32.0-36.0) Red Cell Distribution Width 18.2 % (11.6-17.2) Platelet Count 138 TH/MM3 (150-450) Mean Platelet Volume 8.0 FL (7.0-11.0) Sodium Level 142 MEQ/L (136-145) Potassium Level 3.0 MEQ/L (3.5-5.1) Chloride Level 109 MEQ/L (98-107) Carbon Dioxide Level 24.0 MEQ/L (21.0-32.0) Anion Gap 9 MEQ/L (5-15) Blood Urea Nitrogen 23 MG/DL (7-18) Creatinine 1.07 MG/DL (0.60-1.30) Estimat Glomerular Filtration 81 ML/MIN (>89) Rate Random Glucose 136 MG/DL (74-106) Calcium Level 8.0 MG/DL (8.5-10.1) Blood Gas Puncture Site RT RADIAL Blood Gas Patient Temperature 98.6 Blood Gas HCO3 23 mmol/L (22-26) Blood Gas Base Excess 0.0 mmol/L (-2-2) Blood Gas Oxygen Saturation 97 % (90-100) Arterial Blood pH 7.46 (7.380-7.420) Arterial Blood Partial 33 mmHg (38-42) Pressure CO2 Arterial Blood Partial 160 mmHg Pressure O2 (61-120) Arterial Blood Oxygen Content 11.7 Vol % (12.0-20.0) Arterial Blood 1.3 % (0-4) Carboxyhemoglobin Arterial Blood Methemoglobin 1.2 % (0-2) Blood Gas Hemoglobin 8.4 G/DL (12.0-16.0) Oxygen Delivery Device VENTILATOR Blood Gas Ventilator Setting 500/16/+5 Blood Gas Inspired Oxygen 40 % Phenytoin (Dilantin) Level 18.1 MCG/ML (10.0-20.0) Rapid Plasma Reagin NON-REACTIVE (NON-REACTVE) Result Diagram: 04/23/1739904/23/17399 Microbiology Microbiology Date/Time Procedure Status Source Growth 04/21/17 09:00 Gram Stain - Final Complete Sputum Endotracheal 04/21/17 09:00 Sputum Culture - Final Complete Sputum Endotracheal LIGHT GROWTH NORMAL RESPIRATORY KARIME 04/21/17 20:40 Gram Stain - Final Resulted Cerebral Spinal Fluid Lumbar Puncture 04/21/17 20:40 CSF Culture - Preliminary Resulted Cerebral Spinal Fluid Lumbar Puncture NO GROWTH IN 48 HOURS. 04/21/17 20:40 Acid Fast Stain - Final Resulted Cerebral Spinal Fluid Lumbar Puncture NO ACID FAST BACILLI SEEN 04/21/17 20:40 Mycobacterial Culture Resulted Cerebral Spinal Fluid Lumbar Puncture Pending 04/21/17 20:40 Fungal Smear - Final Resulted Cerebral Spinal Fluid Lumbar Puncture NO FUNGAL ELEMENTS SEEN. 04/21/17 20:40 Fungal Culture Resulted Cerebral Spinal Fluid Lumbar Puncture Pending Procedures * 04/23/17 -reintubation due to malfunctioning ETT * 04/21/17 -lumbar puncture * 04/18/17 -central line placement * 04/17/17 -endotracheal intubation . Assessment and Plan Disease Oriented Problem List: (1) Acute respiratory failure (2) Encephalopathy (3) Aspiration pneumonia (4) Seizures (5) Acute kidney injury (6) Hypothermia (7) Dementia with behavioral disturbance Symptom Scale: (1) Shortness of breath 0-10 Scale: Unable to quantify Comment: Pneumonia, ventilator dependent respiratory failure. Remains orally intubated on mechanical ventilation. (2) Debility 0-10 Scale: Unable to quantify Pertinent Non-Medical Issues Psychosocial: The patient was born and raised in [facility]. He was for about 20 years but for many years. He had 4 sons and 2 daughters, one daughter is . Spiritual: No zoroastrianism affiliation. Legal: Power of senior trial attorney completed. Ethical issues impacting care: Patient unable to participate in medical decision -making, not capacitated secondary to dementia. HCP are his children. . Important Contacts Son Chad RiveraJr who resides in [place] Daughter Suzi Ortiz who resides in the [facility] . . Prognosis Mr. Rivera is a 76 y/o male known to palliative care with a medical history of dementia, atrial fibrillation on anticoagulation, seizures, hypertension, schizophrenia and chronic kidney disease. Clinical course complicated by ventilator dependent respiratory failure, aspiration pneumonia, hypothermia and acute on chronic kidney failure. Patient at a very high risk for further complications, continue decline and . Prognosis is guarded given multiple chronic comorbidities, acute events, physical deconditioning and advanced age. . Code Status: Alternative Code Plan * CODE STATUS: Alt code/intubation only. * HEALTHCARE DECISION-MAKING: Because of the patient's dementia, intubation/ mech vent, he is incapacitated to make his own health care decisions and is not expected to regain capacity. In the absence of advance directives and as per [place] law, proxy decision-making falls to the majority patient's children. His son Chad and daughter Suzi have been appointed during previous acute hospitalization by the other children as co-healthcare proxy decision making ( other children declining to participate in medical decision-making). . * GOALS OF CARE: Family electing to continue conservative management short of NO cardiac code. Family has declined PEG tube placement during past acute admissions. Goal of therapy at this time is to allow the weekend to evaluate patient's clinical condition. Family receptive to continue goals of care discussion early next week. * 04/23/17 -Telephone conversation with patient's daughter Suzi Ortiz. Medical update provided. Reviewed some improvement in patient's neurological status, seems somewhat more alert today. However, not following any commands. Shared concerns about patient's ability to medically extubate /protect his airway if mental status is unchanged. Discussed tracheostomy and PEG tube placement to include benefits, risks and limitations given patient's multiple comorbidities, dementia, profound physical deconditioning and advanced age. * SYMPTOMS: = Shortness of breath, secondary to ventilator dependent respiratory failure, aspiration pneumonia. Remains orally intubated on mechanical ventilation. = Debility, patient resident of long-term facility. Requiring assistance with all ADLs. Likely to continue to worsen. * Case discussed with bedside RN Nelida * Palliative care contact information has been provided to patient's family. * Palliative care will continue to follow-up for further clarifications of goals of care as patient's clinical course continues to evolve. . Time Spent Total Floor Time (mins): 33 (Total time to include review of medical records, physical exam, telephone conversation with patient's daughter Suzi and case discussion with bedside RN.) >50% Counseling/Coord of Care: Yes Attestation To help prompt me to consider important information that might be impacting today's encounter and assessment, information from prior notes written by myself or my colleagues may have been "brought forward" into today's note. My signature on this note, however, is an attestation that I personally performed the exam, history, and/or decision-making noted today, and, unless otherwise indicated, the interactions with patient, family, and staff as well as the review of records all occurred today. I also attest that the listed assessment and stated plan reflect my best clinical judgment today based on the combination of historical information, prior notes, and today's exam/ interactions. When time spent is documented, it refers only to time spent today by the signer, or if indicated, combined time spent today by collaborating physician/nurse practitioner. Vida Morales Apr 23, 2017 14:38
--- NOTE | 2017-04-23 15:23 | HHI.GIFU ---
Subjective Remarks Patient is sedated on a vent, TF on hold today due to feeding coming out of his mouth although no residual noted. No bleeding reported, still brown stools noted in rectal bag. (Cory Duque) Objective Vitals I&O Vital Signs Date Time Temp Pulse Resp B/P Pulse Ox O2 Delivery O2 Flow Rate FiO2 04/23/17 14:00 71 04/23/17 13:30 97.2 73 135/64 100 04/23/17 13:00 97.2 73 139/63 100 04/23/17 12:30 97.0 77 138/64 100 04/23/17 12:15 98 40 04/23/17 12:00 97.0 74 145/67 100 04/23/17 12:00 35 04/23/17 12:00 74 04/23/17 11:30 96.8 70 142/69 99 04/23/17 11:00 97.0 74 129/60 100 04/23/17 10:34 97.0 73 151/70 100 04/23/17 10:30 97.0 83 179/77 86 04/23/17 10:19 96.8 74 177/76 100 04/23/17 10:00 76 04/23/17 10:00 96.8 76 175/80 100 04/23/17 09:30 96.4 73 119/59 100 04/23/17 09:01 96.4 84 127/60 83 04/23/17 09:00 96.4 71 100 04/23/17 08:31 96.3 91 136/63 90 04/23/17 08:26 40 04/23/17 08:10 100 40 04/23/17 08:10 100 Ventilator 40.00 04/23/17 08:00 35 04/23/17 08:00 74 04/23/17 08:00 96.1 74 126/60 100 04/23/17 07:30 95.9 75 128/60 99 04/23/17 07:15 95.7 74 100 04/23/17 07:00 95.7 74 147/64 100 04/23/17 06:45 95.7 71 100 04/23/17 06:30 95.7 71 129/71 100 04/23/17 06:15 95.5 67 100 04/23/17 06:00 64 04/23/17 06:00 95.4 64 165/70 100 04/23/17 05:45 95.4 65 100 04/23/17 05:30 95.4 67 149/70 100 04/23/17 05:15 95.4 66 100 04/23/17 05:00 95.4 62 139/67 100 04/23/17 04:45 95.4 62 100 04/23/17 04:30 95.5 62 145/70 100 04/23/17 04:15 95.5 64 100 04/23/17 04:00 67 04/23/17 04:00 95.5 67 143/65 100 04/23/17 03:45 95.7 67 100 04/23/17 03:30 95.7 68 133/65 100 04/23/17 03:15 95.9 69 78 04/23/17 03:00 100 40 04/23/17 03:00 96.1 67 144/67 100 04/23/17 02:45 96.3 67 100 04/23/17 02:30 96.4 67 141/67 100 04/23/17 02:15 96.4 67 100 04/23/17 02:00 67 04/23/17 02:00 96.4 67 114/56 100 04/23/17 01:45 96.6 68 100 04/23/17 01:30 96.6 68 118/61 100 04/23/17 01:15 96.8 69 96 04/23/17 01:00 97.0 71 91/55 98 04/23/17 00:45 97.2 73 98 04/23/17 00:30 97.2 73 87/54 100 04/23/17 00:16 100 60 04/23/17 00:15 97.2 72 100 04/23/17 00:00 35 04/23/17 00:00 97.3 77 151/73 99 04/23/17 00:00 97.7 04/23/17 00:00 77 04/22/17 23:45 97.3 75 100 04/22/17 23:30 97.3 72 135/59 100 04/22/17 23:15 97.5 71 100 04/22/17 23:00 97.5 72 117/57 100 04/22/17 22:45 97.5 94 100 04/22/17 22:30 97.5 77 136/63 100 04/22/17 22:15 97.5 78 100 04/22/17 22:00 97.3 73 126/58 100 04/22/17 22:00 73 04/22/17 21:45 97.3 76 100 04/22/17 21:30 97.3 79 137/62 100 04/22/17 21:15 97.3 80 100 04/22/17 21:00 97.3 82 121/59 100 04/22/17 20:45 97.3 79 99 04/22/17 20:30 97.5 76 115/57 99 04/22/17 20:15 97.5 70 99 04/22/17 20:00 97.7 73 138/65 99 04/22/17 20:00 35 04/22/17 20:00 73 04/22/17 20:00 98.0 04/22/17 19:00 97.7 77 129/60 98 04/22/17 18:30 98.1 76 136/65 100 04/22/17 18:00 74 134/64 99 04/22/17 17:30 98.1 76 123/60 100 04/22/17 17:00 98.1 72 143/67 100 04/22/17 16:57 98 35 04/22/17 16:30 98.1 73 148/68 100 04/22/17 16:00 98.1 81 156/69 100 04/22/17 16:00 35 04/22/17 15:30 98.1 81 145/67 100 I/O 04/22/17 04/22/17 04/22/17 04/23/17 04/23/17 04/23/17 06:59 14:59 22:59 06:59 14:59 22:59 Intake Total 1125 ml 2280 ml 1062 ml Output Total 950 ml 1875 ml 900 ml Balance 175 ml 405 ml 162 ml IV Total 779 ml 1461 ml 645 ml Tube Feeding 346 ml 319 ml 117 ml Other 500 ml 300 ml Output Urine Total 550 ml 1725 ml 750 ml Stool Total 400 ml 150 ml 150 ml Laboratory Laboratory Tests Test 04/23/17 04/23/17 04/23/17 04:00 11:17 11:40 White Blood Count 10.9 Red Blood Count 2.30 Hemoglobin 7.2 Hematocrit 21.5 Mean Corpuscular Volume 93.2 Mean Corpuscular Hemoglobin 31.1 Mean Corpuscular Hemoglobin 33.4 Concent Red Cell Distribution Width 18.2 Platelet Count 138 Mean Platelet Volume 8.0 Sodium Level 142 Potassium Level 3.0 Chloride Level 109 Carbon Dioxide Level 24.0 Anion Gap 9 Blood Urea Nitrogen 23 Creatinine 1.07 Estimat Glomerular Filtration 81 Rate Random Glucose 136 Calcium Level 8.0 Blood Gas Puncture Site RT RADIAL Blood Gas Patient Temperature 98.6 Blood Gas HCO3 23 Blood Gas Base Excess 0.0 Blood Gas Oxygen Saturation 97 Arterial Blood pH 7.46 Arterial Blood Partial 33 Pressure CO2 Arterial Blood Partial 160 Pressure O2 Arterial Blood Oxygen Content 11.7 Arterial Blood 1.3 Carboxyhemoglobin Arterial Blood Methemoglobin 1.2 Blood Gas Hemoglobin 8.4 Oxygen Delivery Device VENTILATOR Blood Gas Ventilator Setting 500/16/+5 Blood Gas Inspired Oxygen 40 Phenytoin (Dilantin) Level 18.1 Rapid Plasma Reagin NON-REACTIVE Date/Time Procedure Status Source Growth 04/21/17 20:40 Gram Stain - Final Resulted Cerebral Spinal Fluid Lumbar Puncture 04/21/17 20:40 CSF Culture - Preliminary Resulted Cerebral Spinal Fluid Lumbar Puncture NO GROWTH IN 48 HOURS. 04/21/17 20:40 Fungal Smear - Final Resulted Cerebral Spinal Fluid Lumbar Puncture NO FUNGAL ELEMENTS SEEN. 04/21/17 20:40 Fungal Culture Resulted Cerebral Spinal Fluid Lumbar Puncture Pending 04/21/17 20:40 Acid Fast Stain - Final Resulted Cerebral Spinal Fluid Lumbar Puncture NO ACID FAST BACILLI SEEN 04/21/17 20:40 Mycobacterial Culture Resulted Cerebral Spinal Fluid Lumbar Puncture Pending Imaging Last Impressions Chest X-Ray 04/23/17 0000 Signed Impressions: Service Date/Time: Sunday, April 23, 2017 09:42 - CONCLUSION: Support apparatus in good position. Minimal parenchymal changes left lung base , Improving in the interval. Иван Flor MD FACR Head/Brain Mag Res Venography 04/21/17 0000 Signed Impressions: Service Date/Time: Friday, April 21, 2017 14:09 - CONCLUSION: Negative Boubacar Pearl MD Head Magnetic Resonance Angiography 04/21/17 0000 Signed Impressions: Service Date/Time: Friday, April 21, 2017 14:09 - CONCLUSION: Normal examination. Boubacar Pearl MD Brain MRI 04/20/17 0000 Signed Impressions: Service Date/Time: Thursday, April 20, 2017 14:14 - CONCLUSION: Symmetric bilateral frontal and parietal high convexity cortical edema. Unusual appearance in which venous infarction and encephalitis should be considered among the differential possibilities. Boubacar Pearl MD Chest CT 04/19/17 0000 Signed Impressions: Service Date/Time: Wednesday, April 19, 2017 17:19 - CONCLUSION: 1. Posterior bibasilar patchy opacities consistent with atelectasis and/or mild infiltrates. Clinical correlation is recommended. 2. Tiny bilateral pleural effusions. 3. Cardiomegaly and coronary artery calcifications. 4. Degenerative changes and scoliosis of the thoracic spine. Rolando Rowe MD Abdomen/Pelvis CT 04/19/17 0000 Signed Impressions: Service Date/Time: Wednesday, April 19, 2017 17:16 - CONCLUSION: 1. Tiny bilateral pleural effusions with adjacent patchy infiltrates consistent with atelectasis and/or pneumonia. Clinical correlation is recommended. 2. No acute intraabdominal process. 3. Cardiomegaly and coronary artery calcifications. 4. Degenerative changes and scoliosis of the thoracolumbar spine. Rolando Rowe MD Head CT 04/17/17 1212 Signed Impressions: Service Date/Time: Monday, April 17, 2017 14:38 - CONCLUSION: Slight atrophic and small vessel ischemic changes without any evidence for acute hemorrhage or mass effect. Omer Urena MD Abdomen Ultrasound 04/17/17 0000 Signed Impressions: Service Date/Time: Monday, April 17, 2017 15:56 - CONCLUSION: 1. Nonvisualization of the common bile duct, pancreas and spleen. 2. Simple cyst left kidney. Dariusz Louis MD Physical Exam HEENT: normocephalic; atraumatic; no jaundice. CHEST: Chest is clear to auscultation and percussion. OETT to vent CARDIAC: Regular rate and rhythm with no murmur gallop or rubs. ABDOMEN: Soft, nondistended, nontender; no hepatosplenomegaly; bowel sounds are present in all four quadrants. EXTREMITIES: No clubbing, cyanosis, or edema. SKIN: Normal; no rash; no jaundice. DELIVERY STOCK CLERK: alert on a vent . (Cory Duque) Assessment and Plan Plan - Acute on chronic anemia- likely multi factorial, this could be chronic dz related, but GI bleed couldn't be excluded. No obvious bleeding reported, stools for Hemoccult Pending. Pradaxa on hold, currently on Heparin No documented EGD/colonoscopy, Ct as below hgb stable - C-diff- Stools came (+) for C-diff and Epid 027, he is on Vancomycin, Flagyl has been ordered by [facility] - Elevated LFTs- Improving- likely ischemic effect, he did have episodes of hypotension. hepatitis panel (-), will monitor for now. Hepatitis panel negative CT of abd/pelvis on (04/19/17) 1. Tiny bilateral pleural effusions with adjacent patchy infiltrates consistent with atelectasis and/or pneumonia. Clinical correlation is recommended. 2. No acute intraabdominal process. 3. Cardiomegaly and coronary artery calcifications. 4. Degenerative changes and scoliosis of the thoracolumbar spine. US on (04/17)---> Nonvisualization of the common bile duct, pancreas and spleen. 2. Simple cyst left kidney. - AMS- blood cx negative so far, urine cx negative. LP done 04/21- clear CSF, elevated glc and protein. EEG 04/19- mod- severe encephalopathy- neuro on the case - Acute respiratory failure- intubated by [facility] - Acute kidney injury - A-fib ( on Pradaxa, this is on hold now), dementia, DM, HTN per attending - Palliative care on the case, family wish for aggressive tx Plan: - TF per attending - No obvious bleeding, will hold off on EGD/colonoscopy for now - Stools (+) for c-diff, cont. Vancomycin - Cont. Flagyl - Monitor hh - Transfuse as needed - Monitor LFTs - Supportive care - Patient seen and examined by Dr. Perez and myself and this note is written on his behalf. (Cory Duque) Physician Comments Patient seen and examined Agree with above Continue with current supportive care Monitor labs (Emile Perez MD) Cory Duque Apr 23, 2017 15:23 Emile Perez MD Apr 23, 2017 20:02
--- NOTE | 2017-04-23 16:26 | HHI.PR ---
Review/Management Daily Summary 04/[address] Biggs yest reviewed mri brain dx unclear but mri brain abnormal, doubt of herpes encephalitis continue acyclovir if mr venous shows thrombosis then consider anticoag but has anemia!!! if mr venous negative, should proceed with LP for routine studies and hsv pcr 04/22 doing better as he is now more alert and responsive i saw him around 6 pm and he was tracking and had some withdrawal to somatosensory stim mild motor function all 4 limbs i am hopeful he will improve overall functions and we might not need trach neuro dx is a mystery!!!! doubt of herpes encephalitis based on mri, eeg, clinical and initial csf data add csf cytology as well 04/23 needed sedation as he was biting ett he apparently followed simple commands this am csf essentially negative so far including herpes pcr continue supportive care spoke to RN, family not wishing to have trach etc prn neuro over weekend Subjective Subjective Comments No acute events reported Sedated Active Medications Current Medications Medications (Trade) Dose Ordered Sig/Miquel Route Start Time Stop Time Status Last Admin (NS Flush) 2 ml UNSCH PRN IV FLUSH 04/17/17 12:15 04/17/17 15:06 (Heparin Inj) 5,000 units Q12H SQ 04/17/17 15:30 Hold 04/20/17 15:25 Miscellaneous Information 1 Q361D XX 04/17/17 15:30 (Chlorhexidine 2% Cloth) Taper DAILY@04 TOP 04/18/17 04:00 04/14/18 03:59 04/23/17 03:38 (Chlorhexidine 2% Cloth) 3 pack UNSCH PRN TOP 04/17/17 15:30 (Ramona-Colace) 1 tab BID PO 04/17/17 21:00 04/23/17 08:36 (Milk Of Magnesia Liq) 30 ml Q12H PRN PO 04/17/17 15:30 (Senokot) 17.2 mg Q12H PRN PO 04/17/17 15:30 (Dulcolax Supp) 10 mg DAILY PRN RECTAL 04/17/17 15:30 (Lactulose Liq) 30 ml DAILY PRN PO 04/17/17 15:30 Levothyroxine Sodium 50 mcg 50 mcg DAILY@0600 PO 04/17/17 15:30 04/23/17 06:00 Potassium Chloride 100 ml @ 50 mls/hr Q2H PRN IV 04/18/17 07:30 04/23/17 12:57 (KCl 20 Meq Premix Inj) 100 ml @ 50 mls/hr Q2H PRN IV 04/18/17 07:30 Potassium Bicarb/ Potassium Chloride 50 meq 50 meq UNSCH PRN PO 04/18/17 07:30 Potassium Chloride 100 ml @ 25 mls/hr UNSCH PRN IV 04/18/17 07:30 Potassium Chloride 100 ml @ 50 mls/hr Q2H PRN IV 04/18/17 07:30 04/19/17 07:53 (Magnesium Sulfate Inj/NS Inj) 100 ml @ 50 mls/hr UNSCH PRN IV 04/18/17 07:30 Magnesium Oxide 800 mg 800 mg UNSCH PRN PO 04/18/17 07:30 (Magnesium Sulfate Inj/NS Inj) 100 ml @ 50 mls/hr UNSCH PRN IV 04/18/17 07:30 Potassium Phosphate 2000 mg 2,000 mg Q4H PRN PO 04/18/17 07:30 (Sodium Phosphate Inj/NS 250 ml Inj) 250 ml @ 42 mls/hr UNSCH PRN IV 04/18/17 07:30 04/18/17 10:40 Potassium Phosphate 2000 mg 2,000 mg UNSCH PRN PO/TUBE 04/18/17 07:30 (Potassium Phosphate Inj/NS 250 ml Inj) 260 ml @ 42 mls/hr UNSCH PRN IV 04/18/17 07:30 (Free Water) 250 ml Q8H G-TUBE 04/18/17 08:00 04/23/17 16:00 (SoluCORTEF INJ) 100 mg Q8H IV PUSH 04/18/17 08:00 04/23/17 16:05 (Lactulose Liq) 15 ml BID PO 04/19/17 14:00 04/23/17 08:36 (Dilantin Inj) 100 mg Q8HR IV 04/19/17 22:00 04/23/17 14:30 (Protonix Inj) 40 mg BID IV 04/20/17 21:00 04/23/17 08:36 Metronidazole 500 mg 500 mg Q8HR PO 04/20/17 17:30 04/23/17 14:30 (Zosyn 3.375 Gm Premix) 50 ml @ 100 mls/hr Q8H IV 04/22/17 18:00 04/23/17 10:19 Hyoscyamine Sulfate 0.125 mg 0.125 mg Q4H PRN SL 04/22/17 17:30 (fentaNYL DRIP) 250 ml @ 0 mls/hr TITRATE IV 04/23/17 12:30 04/23/17 12:58 Allergies Allergies Coded Allergies *MDRO Multi-Drug Resistant Organism (Verified Adverse Reaction, Unknown, MRSA , 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) Review of Systems All other ROS: ROS reviewed as documented in chart Exam I&O / VS 04/22/17 04/22/17 04/23/17 14:59 22:59 06:59 Intake Total 2280 ml 1062 ml Output Total 1875 ml 900 ml Balance 405 ml 162 ml IV Total 1461 ml 645 ml Tube Feeding 319 ml 117 ml Other 500 ml 300 ml Output Urine Total 1725 ml 750 ml Stool Total 150 ml 150 ml Vital Signs Date Time Temp Pulse Resp B/P Pulse Ox O2 Delivery O2 Flow Rate FiO2 04/23/17 14:00 71 04/23/17 13:30 97.2 73 135/64 100 04/23/17 13:00 97.2 73 139/63 100 04/23/17 12:30 97.0 77 138/64 100 04/23/17 12:15 98 40 04/23/17 12:00 97.0 74 145/67 100 04/23/17 12:00 35 04/23/17 12:00 74 04/23/17 11:30 96.8 70 142/69 99 04/23/17 11:00 97.0 74 129/60 100 04/23/17 10:34 97.0 73 151/70 100 04/23/17 10:30 97.0 83 179/77 86 04/23/17 10:19 96.8 74 177/76 100 04/23/17 10:00 76 04/23/17 10:00 96.8 76 175/80 100 04/23/17 09:30 96.4 73 119/59 100 04/23/17 09:01 96.4 84 127/60 83 04/23/17 09:00 96.4 71 100 04/23/17 08:31 96.3 91 136/63 90 04/23/17 08:26 40 04/23/17 08:10 100 40 04/23/17 08:10 100 Ventilator 40.00 04/23/17 08:00 35 04/23/17 08:00 74 04/23/17 08:00 96.1 74 126/60 100 04/23/17 07:30 95.9 75 128/60 99 04/23/17 07:15 95.7 74 100 04/23/17 07:00 95.7 74 147/64 100 04/23/17 06:45 95.7 71 100 04/23/17 06:30 95.7 71 129/71 100 04/23/17 06:15 95.5 67 100 04/23/17 06:00 64 04/23/17 06:00 95.4 64 165/70 100 04/23/17 05:45 95.4 65 100 04/23/17 05:30 95.4 67 149/70 100 04/23/17 05:15 95.4 66 100 04/23/17 05:00 95.4 62 139/67 100 04/23/17 04:45 95.4 62 100 04/23/17 04:30 95.5 62 145/70 100 04/23/17 04:15 95.5 64 100 04/23/17 04:00 67 04/23/17 04:00 95.5 67 143/65 100 04/23/17 03:45 95.7 67 100 04/23/17 03:30 95.7 68 133/65 100 04/23/17 03:15 95.9 69 78 04/23/17 03:00 100 40 04/23/17 03:00 96.1 67 144/67 100 04/23/17 02:45 96.3 67 100 04/23/17 02:30 96.4 67 141/67 100 04/23/17 02:15 96.4 67 100 04/23/17 02:00 67 04/23/17 02:00 96.4 67 114/56 100 04/23/17 01:45 96.6 68 100 04/23/17 01:30 96.6 68 118/61 100 04/23/17 01:15 96.8 69 96 04/23/17 01:00 97.0 71 91/55 98 04/23/17 00:45 97.2 73 98 04/23/17 00:30 97.2 73 87/54 100 04/23/17 00:16 100 60 04/23/17 00:15 97.2 72 100 04/23/17 00:00 35 04/23/17 00:00 97.3 77 151/73 99 04/23/17 00:00 97.7 04/23/17 00:00 77 04/22/17 23:45 97.3 75 100 04/22/17 23:30 97.3 72 135/59 100 04/22/17 23:15 97.5 71 100 04/22/17 23:00 97.5 72 117/57 100 04/22/17 22:45 97.5 94 100 04/22/17 22:30 97.5 77 136/63 100 04/22/17 22:15 97.5 78 100 04/22/17 22:00 97.3 73 126/58 100 04/22/17 22:00 73 04/22/17 21:45 97.3 76 100 04/22/17 21:30 97.3 79 137/62 100 04/22/17 21:15 97.3 80 100 04/22/17 21:00 97.3 82 121/59 100 04/22/17 20:45 97.3 79 99 04/22/17 20:30 97.5 76 115/57 99 04/22/17 20:15 97.5 70 99 04/22/17 20:00 97.7 73 138/65 99 04/22/17 20:00 35 04/22/17 20:00 73 04/22/17 20:00 98.0 04/22/17 19:00 97.7 77 129/60 98 04/22/17 18:30 98.1 76 136/65 100 04/22/17 18:00 74 134/64 99 04/22/17 17:30 98.1 76 123/60 100 04/22/17 17:00 98.1 72 143/67 100 04/22/17 16:57 98 35 04/22/17 16:30 98.1 73 148/68 100 General: No acute distress Eye: EOMI Cardiology: Normal rate Objective Micro and Labs Laboratory Tests Test 04/23/17 04/23/17 04/23/17 04:00 11:17 11:40 White Blood Count 10.9 Red Blood Count 2.30 Hemoglobin 7.2 Hematocrit 21.5 Mean Corpuscular Volume 93.2 Mean Corpuscular Hemoglobin 31.1 Mean Corpuscular Hemoglobin 33.4 Concent Red Cell Distribution Width 18.2 Platelet Count 138 Mean Platelet Volume 8.0 Sodium Level 142 Potassium Level 3.0 Chloride Level 109 Carbon Dioxide Level 24.0 Anion Gap 9 Blood Urea Nitrogen 23 Creatinine 1.07 Estimat Glomerular Filtration 81 Rate Random Glucose 136 Calcium Level 8.0 Blood Gas Puncture Site RT RADIAL Blood Gas Patient Temperature 98.6 Blood Gas HCO3 23 Blood Gas Base Excess 0.0 Blood Gas Oxygen Saturation 97 Arterial Blood pH 7.46 Arterial Blood Partial 33 Pressure CO2 Arterial Blood Partial 160 Pressure O2 Arterial Blood Oxygen Content 11.7 Arterial Blood 1.3 Carboxyhemoglobin Arterial Blood Methemoglobin 1.2 Blood Gas Hemoglobin 8.4 Oxygen Delivery Device VENTILATOR Blood Gas Ventilator Setting 500/16/+5 Blood Gas Inspired Oxygen 40 Vancomycin Level Trough 10.1 Phenytoin (Dilantin) Level 18.1 Rapid Plasma Reagin NON-REACTIVE Date/Time Procedure Status Source Growth 04/21/17 20:40 Gram Stain - Final Resulted Cerebral Spinal Fluid Lumbar Puncture 04/21/17 20:40 CSF Culture - Preliminary Resulted Cerebral Spinal Fluid Lumbar Puncture NO GROWTH IN 48 HOURS. 04/21/17 20:40 Fungal Smear - Final Resulted Cerebral Spinal Fluid Lumbar Puncture NO FUNGAL ELEMENTS SEEN. 04/21/17 20:40 Fungal Culture Resulted Cerebral Spinal Fluid Lumbar Puncture Pending 04/21/17 20:40 Acid Fast Stain - Final Resulted Cerebral Spinal Fluid Lumbar Puncture NO ACID FAST BACILLI SEEN 04/21/17 20:40 Mycobacterial Culture Resulted Cerebral Spinal Fluid Lumbar Puncture Pending Dixon Rasmussen MD Apr 23, 2017 16:26
--- NOTE | 2017-04-23 17:07 | RADRPT ---
EXAM DATE/TIME: 04/23/2017 16:14 [place] COMPARISON: CHEST SINGLE AP, April 23, 2017, 9:42. INDICATIONS : Evaluate for ET tube placement. MEDICAL HISTORY : Hypertension. Diabetes mellitus type 1. Seizures. A-fib SURGICAL HISTORY : None. ENCOUNTER: Subsequent ACUITY: 1 day PAIN SCORE: Non-responsive. LOCATION: chest FINDINGS: ET tube is approximately 4 cm above the clair. Stable left subclavian catheter and nasogastric ban ter. Lungs are hypoaerated with slight increased atelectasis in the right midlung zone. Left lower ryan ng zone airspace disease is unchanged. Cardiomediastinal contours are stable. Remainder of the exam i s unchanged. CONCLUSION: 1. ET tube in approximately 4 cm above the clair. 2. Mild increased atelectasis in the right midlung zone. Binu Reyes MD on April 23, 2017 at 17:03 Board Certified Radiologist. This report was verified electronically.
--- NOTE | 2017-04-23 17:41 | HHI.IDPN ---
Subjective Subjective Remarks ID [id number] cover for Dr Stacy hugo was reviewed is a 76 y/o [facility] resident with a reported PMHx of hypothyroidism, hypertension, diabetes mellitus, dementia, seizure disorder on Dilantin, atrial fibrillation on Pradaxa who presented to the [facility] Emergency Department for confusion and altered mental status. The patient was also found hypothermic with a temperature of 88.9 rectally. History obtained from review of medical records no family could be reached. His laboratory data showed acute kidney injury with creatinine level 1.37 and hyperkalemia with a potassium level 6.0. His lactic acid level measured at 0.8. In addition, he was found to have elevated liver enzymes with AST 177, ALT 168 and total bilirubin less than 0.1. Due to altered mental status, the patient was intubated with etomidate, vecuronium and placed on full mechanical ventilation. CT scan of the brain obtained in the emergency department showed slight atrophic and small vessel ischemic changes without any evidence for acute hemorrhage or mass effect. Chest x-ray post intubation showed right upper lobe and left lower lobe densities and adequate placement of the ET tube. In the emergency room, the patient was given approximately 1.5 liters of crystalloids in addition to vancomycin and Zosyn for possible aspiration pneumonia.\ He has + C.diff MRI showed unusual appearance in which venous infarction and encephalitis should be considered among the differential possibilities. HSV PCR neg Pt remains intubated, on PEEP 5 Fi)2 40% he has large amount of thick odom secretions Overnight events reviewed. Not much meaningful response. Opens eyes spontaneously. No fever No rash Continues to have large volume watery diarrhea (500 cc/shift), has dignishield. Antibiotics Ceftaz IV Vanco IV Acyclovir IV Flagyl oral Lines Line sites with no e.o infection. Past Medical History 1. Dementia. 2. Hypertension. 3. Seizure disorder. 4. Atrial fibrillation. 5. Diabetes. 6. Gastroesophageal reflux disease (GERD). 7. Schizophrenia. 8. Chronic kidney disease. 9. Anemia. 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 Vital Signs Date Time Temp Pulse Resp B/P Pulse Ox O2 Delivery O2 Flow Rate FiO2 04/23/17 14:00 71 04/23/17 13:30 97.2 73 135/64 100 04/23/17 13:00 97.2 73 139/63 100 04/23/17 12:30 97.0 77 138/64 100 04/23/17 12:15 98 40 04/23/17 12:00 97.0 74 145/67 100 04/23/17 12:00 35 04/23/17 12:00 74 04/23/17 11:30 96.8 70 142/69 99 04/23/17 11:00 97.0 74 129/60 100 04/23/17 10:34 97.0 73 151/70 100 04/23/17 10:30 97.0 83 179/77 86 04/23/17 10:19 96.8 74 177/76 100 04/23/17 10:00 76 04/23/17 10:00 96.8 76 175/80 100 04/23/17 09:30 96.4 73 119/59 100 04/23/17 09:01 96.4 84 127/60 83 04/23/17 09:00 96.4 71 100 04/23/17 08:31 96.3 91 136/63 90 04/23/17 08:26 40 04/23/17 08:10 100 40 04/23/17 08:10 100 Ventilator 40.00 04/23/17 08:00 35 04/23/17 08:00 74 04/23/17 08:00 96.1 74 126/60 100 04/23/17 07:30 95.9 75 128/60 99 04/23/17 07:15 95.7 74 100 04/23/17 07:00 95.7 74 147/64 100 04/23/17 06:45 95.7 71 100 04/23/17 06:30 95.7 71 129/71 100 04/23/17 06:15 95.5 67 100 04/23/17 06:00 64 04/23/17 06:00 95.4 64 165/70 100 04/23/17 05:45 95.4 65 100 04/23/17 05:30 95.4 67 149/70 100 04/23/17 05:15 95.4 66 100 04/23/17 05:00 95.4 62 139/67 100 04/23/17 04:45 95.4 62 100 04/23/17 04:30 95.5 62 145/70 100 04/23/17 04:15 95.5 64 100 04/23/17 04:00 67 04/23/17 04:00 95.5 67 143/65 100 04/23/17 03:45 95.7 67 100 04/23/17 03:30 95.7 68 133/65 100 04/23/17 03:15 95.9 69 78 04/23/17 03:00 100 40 04/23/17 03:00 96.1 67 144/67 100 04/23/17 02:45 96.3 67 100 04/23/17 02:30 96.4 67 141/67 100 04/23/17 02:15 96.4 67 100 04/23/17 02:00 67 04/23/17 02:00 96.4 67 114/56 100 04/23/17 01:45 96.6 68 100 04/23/17 01:30 96.6 68 118/61 100 04/23/17 01:15 96.8 69 96 04/23/17 01:00 97.0 71 91/55 98 04/23/17 00:45 97.2 73 98 04/23/17 00:30 97.2 73 87/54 100 04/23/17 00:16 100 60 04/23/17 00:15 97.2 72 100 04/23/17 00:00 35 04/23/17 00:00 97.3 77 151/73 99 04/23/17 00:00 97.7 04/23/17 00:00 77 04/22/17 23:45 97.3 75 100 04/22/17 23:30 97.3 72 135/59 100 04/22/17 23:15 97.5 71 100 04/22/17 23:00 97.5 72 117/57 100 04/22/17 22:45 97.5 94 100 04/22/17 22:30 97.5 77 136/63 100 04/22/17 22:15 97.5 78 100 04/22/17 22:00 97.3 73 126/58 100 04/22/17 22:00 73 04/22/17 21:45 97.3 76 100 04/22/17 21:30 97.3 79 137/62 100 04/22/17 21:15 97.3 80 100 04/22/17 21:00 97.3 82 121/59 100 04/22/17 20:45 97.3 79 99 04/22/17 20:30 97.5 76 115/57 99 04/22/17 20:15 97.5 70 99 04/22/17 20:00 97.7 73 138/65 99 04/22/17 20:00 35 04/22/17 20:00 73 04/22/17 20:00 98.0 04/22/17 19:00 97.7 77 129/60 98 04/22/17 18:30 98.1 76 136/65 100 04/22/17 18:00 74 134/64 99 04/22/17 04/22/17 04/23/17 14:59 22:59 06:59 Intake Total 2280 ml 1062 ml Output Total 1875 ml 900 ml Balance 405 ml 162 ml IV Total 1461 ml 645 ml Tube Feeding 319 ml 117 ml Other 500 ml 300 ml Output Urine Total 1725 ml 750 ml Stool Total 150 ml 150 ml . Laboratory Tests Test 04/23/17 04:00 White Blood Count 10.9 TH/MM3 Red Blood Count 2.30 MIL/MM3 Hemoglobin 7.2 GM/DL Hematocrit 21.5 % Mean Corpuscular Volume 93.2 FL Mean Corpuscular Hemoglobin 31.1 PG Mean Corpuscular Hemoglobin 33.4 % Concent Red Cell Distribution Width 18.2 % Platelet Count 138 TH/MM3 Mean Platelet Volume 8.0 FL Laboratory Tests Test 04/22/17 04/23/17 04:16 04:00 Total Bilirubin 0.1 MG/DL Direct Bilirubin LESS THAN 0.1 MG/DL Indirect Bilirubin 0.0 MG/DL Aspartate Amino Transf 82 U/L (AST/SGOT) Alanine Aminotransferase 99 U/L (ALT/SGPT) Alkaline Phosphatase 142 U/L Total Protein 5.7 GM/DL Albumin 2.0 GM/DL Sodium Level 142 MEQ/L Potassium Level 3.0 MEQ/L Chloride Level 109 MEQ/L Carbon Dioxide Level 24.0 MEQ/L Anion Gap 9 MEQ/L Blood Urea Nitrogen 23 MG/DL Creatinine 1.07 MG/DL Estimat Glomerular Filtration 81 ML/MIN Rate Random Glucose 136 MG/DL Calcium Level 8.0 MG/DL Microbiology Date/Time Procedure Status Source Growth 04/21/17 09:00 Gram Stain - Final Complete Sputum Endotracheal 04/21/17 09:00 Sputum Culture - Final Complete Sputum Endotracheal LIGHT GROWTH NORMAL RESPIRATORY KARIME 04/21/17 20:40 Gram Stain - Final Resulted Cerebral Spinal Fluid Lumbar Puncture 04/21/17 20:40 CSF Culture - Preliminary Resulted Cerebral Spinal Fluid Lumbar Puncture NO GROWTH IN 48 HOURS. 04/21/17 20:40 Acid Fast Stain - Final Resulted Cerebral Spinal Fluid Lumbar Puncture NO ACID FAST BACILLI SEEN 04/21/17 20:40 Mycobacterial Culture Resulted Cerebral Spinal Fluid Lumbar Puncture Pending 04/21/17 20:40 Fungal Smear - Final Resulted Cerebral Spinal Fluid Lumbar Puncture NO FUNGAL ELEMENTS SEEN. 04/21/17 20:40 Fungal Culture Resulted Cerebral Spinal Fluid Lumbar Puncture Pending Imaging Last Impressions Chest X-Ray 04/23/17 0000 Signed Impressions: Service Date/Time: Sunday, April 23, 2017 16:14 - CONCLUSION: 1. ET tube in approximately 4 cm above the clair. 2. Mild increased atelectasis in the right midlung zone. Binu Reyes MD Head/Brain Mag Res Venography 04/21/17 0000 Signed Impressions: Service Date/Time: Friday, April 21, 2017 14:09 - CONCLUSION: Negative Boubacar Pearl MD Head Magnetic Resonance Angiography 04/21/17 0000 Signed Impressions: Service Date/Time: Friday, April 21, 2017 14:09 - CONCLUSION: Normal examination. Boubacar Pearl MD Brain MRI 04/20/17 0000 Signed Impressions: Service Date/Time: Thursday, April 20, 2017 14:14 - CONCLUSION: Symmetric bilateral frontal and parietal high convexity cortical edema. Unusual appearance in which venous infarction and encephalitis should be considered among the differential possibilities. Boubacar Pearl MD Chest CT 04/19/17 0000 Signed Impressions: Service Date/Time: Wednesday, April 19, 2017 17:19 - CONCLUSION: 1. Posterior bibasilar patchy opacities consistent with atelectasis and/or mild infiltrates. Clinical correlation is recommended. 2. Tiny bilateral pleural effusions. 3. Cardiomegaly and coronary artery calcifications. 4. Degenerative changes and scoliosis of the thoracic spine. Rolando Rowe MD Abdomen/Pelvis CT 04/19/17 0000 Signed Impressions: Service Date/Time: Wednesday, April 19, 2017 17:16 - CONCLUSION: 1. Tiny bilateral pleural effusions with adjacent patchy infiltrates consistent with atelectasis and/or pneumonia. Clinical correlation is recommended. 2. No acute intraabdominal process. 3. Cardiomegaly and coronary artery calcifications. 4. Degenerative changes and scoliosis of the thoracolumbar spine. Rolando Rowe MD Head CT 04/17/17 1212 Signed Impressions: Service Date/Time: Monday, April 17, 2017 14:38 - CONCLUSION: Slight atrophic and small vessel ischemic changes without any evidence for acute hemorrhage or mass effect. Omer Urena MD Abdomen Ultrasound 04/17/17 0000 Signed Impressions: Service Date/Time: Monday, April 17, 2017 15:56 - CONCLUSION: 1. Nonvisualization of the common bile duct, pancreas and spleen. 2. Simple cyst left kidney. Dariusz Louis MD Physical Exam GENERAL: This is a well-nourished, well-developed patient, in no apparent distress. SKIN: No rashes, ecchymoses or lesions. Cool and dry. HEAD: Atraumatic. Normocephalic. No temporal or scalp tenderness. EYES: Pupils equal round and reactive. Extraocular motions intact. No scleral icterus. No injection or drainage. ENT: Intubated. NECK: Trachea midline. Supple, nontender, no meningeal signs. CARDIOVASCULAR: Regular rate and rhythm without murmurs, gallops, or rubs. RESPIRATORY: Clear to auscultation. Breath sounds equal bilaterally. No wheezes , rales, or rhonchi. GASTROINTESTINAL: Abdomen soft, non-tender, nondistended. MUSCULOSKELETAL: Extremities without clubbing, cyanosis, or edema. No joint tenderness, effusion, or edema noted. No calf tenderness. Negative Homans sign bilaterally. NEUROLOGICAL: Off sedation, moving upper body and neck. No meaningful response. Opens eyes spontaneously. Psych: could not be assessed IV line sites with no e.o infection. Assessment & Plan Remarks Possible Sepsis now (hypothermia, leucocytosis, hypotension). Hypothermia: hypothyroidism, infection Cdiff, hypervirulent 027 strain Acute metabolic encephalopathy: infection, metabolic, hypothyroidism - HSV PCR neg Acute respiratory failure on vent, stable but not tolerating CPAP Possible HCAP, aspiration pneumonia on admission Acute renal failure: was on Bactrim as outpt plus ? prerenal and sepsis. H/o seizures Recs: DC Ceftazidime IV DC Vanco IV (target trough 15-20) cont Zosyn IV (aspiration Pneumonia) Continue Flagyl oral (for anaerobic coverage and Cdiff) Add oral vanco dc Acyclovir. Ordered HIV PCR, Added CSF encephalitis panel and CSF TRINITY virus and VDRL. Follow sputum cultures Follow cultures Follow clinically. Reviewed Neurology consult note. Richardson RN for pt. Nikki Cee MD Apr 23, 2017 17:40
[2017-04-23] MEDS: VANCOMYCIN 500 MG VIAL (FOR ORAL USE ONLY) PO SCH (18:21)
[2017-04-23] MEDS ORDERED: ALTEPLASE RECOMBINANT 2 MG VIAL IV FLUSH ONE (19:00)
[2017-04-24] VITALS (21 sets, daily range): BP systolic 99–136; BP diastolic 52–60; PULSE 65–86; RESP 16; TEMP 97.2–99.3; O2SAT 96–100
[2017-04-24] MEDS: HYDROCORTISONE SOD SUCCINATE 100 MG VIAL IV PUSH SCH ×3 (00:39→16:43)
[2017-04-24] MEDS: VANCOMYCIN 500 MG VIAL (FOR ORAL USE ONLY) PO SCH ×4 (00:40→16:40)
[2017-04-24] MEDS: PIPERACIL-TAZO 3.375 GM PREMIX 50 ML IV SCH ×2 (01:52→09:07)
[2017-04-24] MEDS: CHLORHEXIDINE GLUCONATE 2 % 1 PACK (2 CLOTHS) TOP SCH (04:00)
[2017-04-24 04:47] LABS: AUTOMATED NEUTROPHIL # 18.1 TH/MM3 (1.8-7.7); BASOPHIL % 0.1 % (0.0-2.0); EOSINOPHIL # 0.1 TH/MM3 (0-0.4); EOSINOPHIL % 0.3 % (0.0-4.0); HEMATOCRIT 21.5 % (39.0-51.0); HEMO FLAGS DIFF FINAL; LYMPH % 4.3 % (9.0-44.0); LYMPHOCYTE # 0.9 TH/MM3 (1.0-4.8); MEAN CELL VOLUME 92.7 FL (80.0-100.0); MEAN CORPUSCULAR HEMOGLOBIN 31.1 PG (27.0-34.0); MEAN CORPUSCULAR HGB CONC 33.5 % (32.0-36.0); MONO % 4.7 % (0.0-8.0); NEUT % 90.6 % (16.0-70.0); PLATELET COUNT 148 TH/MM3 (150-450); RED BLOOD COUNT 2.32 MIL/MM3 (4.50-5.90); RED CELL DISTRIBUTION WIDTH 17.7 % (11.6-17.2)
[2017-04-24 04:57] LABS: ALT (GPT) 64 U/L (12-78); ANION GAP 8 MEQ/L (5-15); AST (GOT) 36 U/L (15-37); BLOOD UREA NITROGEN 24 MG/DL (7-18); CHLORIDE 111 MEQ/L (98-107); GLOMERULAR FILTRATION RATE 87 ML/MIN (>89); MAGNESIUM 2.2 MG/DL (1.5-2.5); POTASSIUM 3.6 MEQ/L (3.5-5.1); SODIUM (NA) 145 MEQ/L (136-145)
[2017-04-24 04:59] LABS: ALKALINE PHOSPHATASE 117 U/L (45-117); TOTAL BILIRUBIN ADULT 0.2 MG/DL (0.2-1.0)
[2017-04-24] MEDS: metroNIDAZOLE 500 MG TAB PO SCH ×3 (05:42→22:37)
[2017-04-24] MEDS: LEVOTHYROXINE SODIUM 50 MCG TAB PO SCH (05:42)
[2017-04-24] MEDS: PHENYTOIN INJ 100 MG/2 ML VIAL IV SCH ×3 (05:42→22:37)
--- NOTE | 2017-04-24 07:31 | HHI.CCPN ---
Subjective Remarks/Hospital Course The patient is a 76-[facility]-old [facility] resident with a past medical history of hypothyroidism, hypertension, diabetes mellitus, dementia, seizure disorder, atrial fibrillation on Pradaxa who presented to the [facility] Emergency Department for confusion and altered mental status. The patient was also found hypothermic with a temperature of 88.9 rectally. His laboratory data showed acute kidney injury with creatinine level 1.37 and hyperkalemia with a potassium level 6.0. His lactic acid level measured at 0.8. In addition, he was found to have elevated liver enzymes with AST 177, ALT 168 and total bilirubin less than 0.1. Due to altered mental status, the patient was intubated with etomidate, vecuronium and placed on full mechanical ventilation. CT scan of the brain obtained in the emergency department showed slight atrophic and small vessel ischemic changes without any evidence for acute hemorrhage or mass effect. Chest x-ray post intubation showed right upper lobe and left lower lobe densities and adequate placement of the ET tube. In the emergency room, the patient was given approximately 1.5 liters of crystalloids in addition to vancomycin and Zosyn for possible aspiration pneumonia. Other significant labs showed a TSH of 11.0 and a random cortisol level of 9.7. He was also be given Decadron 10 mg IV push. ABG post-intubation showed a pH of 7.43, CO2 38, pAO2 186, bicarb 25, saturation 98% on assist control ventilation with a rate of 16, tidal volume 500, PEEP of 5 and FIO2 of 50%. When seen in the emergency room, he was sedated with Versed. 04/18 Patient is intubated and sedated with Versed 5mg started on Levophed 4 mics overnight. Hgb 6.8 this morning. 04/19 Patient remains intubated with versed. Off Levophed. s/p transfusion 1unit PRBC yesterday. 04/20 Patient is off Levophed,on Versed 2mg/hr. Tmax 100.4 04/21: off pressors. remains encephalopathic. going for MRA/MRV. plan for LP after if negative. hgb 7 this morning. 04/22: no meaningful change. remains encephalopathic. intermittently tracks. LP without overt evidence of bacterial infection. will need to start thinking about trach if the family continues to want to be aggressive. 04/23 Patient had malfunction ETT last night and was reintubated. Afebrile. 04/24 No events overnight. Sedated with Fentanyl and intubated. Afebrile. Objective Vital Signs Date Time Temp Pulse Resp B/P Pulse Ox O2 Delivery O2 Flow Rate FiO2 04/24/17 06:00 74 04/24/17 04:04 100 35 04/24/17 04:00 98.4 16 107/52 04/23/17 08:10 Ventilator 40.00 Intake and Output 04/23/17 04/23/17 04/23/17 07:59 15:59 23:59 Intake Total 1062 ml 1140 ml 366 ml Output Total 900 ml 975 ml 150 ml Balance 162 ml 165 ml 216 ml Result Diagram: 04/24/17 0330 04/24/17 0330 Other Results Laboratory Tests Test 04/23/17 04/23/17 04/23/17 04/24/17 11:17 11:40 19:57 03:30 Blood Gas Puncture Site RT RADIAL Blood Gas Patient Temperature 98.6 Blood Gas HCO3 23 mmol/L Blood Gas Base Excess 0.0 mmol/L Blood Gas Oxygen Saturation 97 % Arterial Blood pH 7.46 Arterial Blood Partial 33 mmHg Pressure CO2 Arterial Blood Partial 160 mmHg Pressure O2 Arterial Blood Oxygen Content 11.7 Vol % Arterial Blood 1.3 % Carboxyhemoglobin Arterial Blood Methemoglobin 1.2 % Blood Gas Hemoglobin 8.4 G/DL Oxygen Delivery Device VENTILATOR Blood Gas Ventilator Setting 500/16/+5 Blood Gas Inspired Oxygen 40 % Vancomycin Level Trough 10.1 MCG/ML Phenytoin (Dilantin) Level 18.1 MCG/ML Rapid Plasma Reagin NON-REACTIVE Potassium Level 4.1 MEQ/L 3.6 MEQ/L White Blood Count 20.0 TH/MM3 Red Blood Count 2.32 MIL/MM3 Hemoglobin 7.2 GM/DL Hematocrit 21.5 % Mean Corpuscular Volume 92.7 FL Mean Corpuscular Hemoglobin 31.1 PG Mean Corpuscular Hemoglobin 33.5 % Concent Red Cell Distribution Width 17.7 % Platelet Count 148 TH/MM3 Mean Platelet Volume 8.2 FL Neutrophils (%) (Auto) 90.6 % Lymphocytes (%) (Auto) 4.3 % Monocytes (%) (Auto) 4.7 % Eosinophils (%) (Auto) 0.3 % Basophils (%) (Auto) 0.1 % Neutrophils # (Auto) 18.1 TH/MM3 Lymphocytes # (Auto) 0.9 TH/MM3 Monocytes # (Auto) 0.9 TH/MM3 Eosinophils # (Auto) 0.1 TH/MM3 Basophils # (Auto) 0.0 TH/MM3 CBC Comment DIFF FINAL Differential Comment Sodium Level 145 MEQ/L Chloride Level 111 MEQ/L Carbon Dioxide Level 26.0 MEQ/L Anion Gap 8 MEQ/L Blood Urea Nitrogen 24 MG/DL Creatinine 1.01 MG/DL Estimat Glomerular Filtration 87 ML/MIN Rate Random Glucose 109 MG/DL Calcium Level 8.0 MG/DL Phosphorus Level 2.6 MG/DL Magnesium Level 2.2 MG/DL Total Bilirubin 0.2 MG/DL Aspartate Amino Transf 36 U/L (AST/SGOT) Alanine Aminotransferase 64 U/L (ALT/SGPT) Alkaline Phosphatase 117 U/L Total Protein 5.7 GM/DL Albumin 2.0 GM/DL Imaging Last Impressions Chest X-Ray 04/23/17 0000 Signed Impressions: Service Date/Time: Sunday, April 23, 2017 16:14 - CONCLUSION: 1. ET tube in approximately 4 cm above the clair. 2. Mild increased atelectasis in the right midlung zone. Binu Reyes MD Head/Brain Mag Res Venography 04/21/17 0000 Signed Impressions: Service Date/Time: Friday, April 21, 2017 14:09 - CONCLUSION: Negative Boubacar Pearl MD Head Magnetic Resonance Angiography 04/21/17 0000 Signed Impressions: Service Date/Time: Friday, April 21, 2017 14:09 - CONCLUSION: Normal examination. Boubacar Pearl MD Brain MRI 04/20/17 0000 Signed Impressions: Service Date/Time: Thursday, April 20, 2017 14:14 - CONCLUSION: Symmetric bilateral frontal and parietal high convexity cortical edema. Unusual appearance in which venous infarction and encephalitis should be considered among the differential possibilities. Boubacar Pearl MD Chest CT 04/19/17 0000 Signed Impressions: Service Date/Time: Wednesday, April 19, 2017 17:19 - CONCLUSION: 1. Posterior bibasilar patchy opacities consistent with atelectasis and/or mild infiltrates. Clinical correlation is recommended. 2. Tiny bilateral pleural effusions. 3. Cardiomegaly and coronary artery calcifications. 4. Degenerative changes and scoliosis of the thoracic spine. Rolando Rowe MD Abdomen/Pelvis CT 04/19/17 0000 Signed Impressions: Service Date/Time: Wednesday, April 19, 2017 17:16 - CONCLUSION: 1. Tiny bilateral pleural effusions with adjacent patchy infiltrates consistent with atelectasis and/or pneumonia. Clinical correlation is recommended. 2. No acute intraabdominal process. 3. Cardiomegaly and coronary artery calcifications. 4. Degenerative changes and scoliosis of the thoracolumbar spine. Rolando Rowe MD Head CT 04/17/17 1212 Signed Impressions: Service Date/Time: Monday, April 17, 2017 14:38 - CONCLUSION: Slight atrophic and small vessel ischemic changes without any evidence for acute hemorrhage or mass effect. Omer Urena MD Abdomen Ultrasound 04/17/17 0000 Signed Impressions: Service Date/Time: Monday, April 17, 2017 15:56 - CONCLUSION: 1. Nonvisualization of the common bile duct, pancreas and spleen. 2. Simple cyst left kidney. Dariusz Louis MD Objective Remarks GENERAL: Patient is 76 yo intubated male, critically ill, obtunded. encephalopathic. SKIN: Warm and dry. HEAD: Normocephalic. EYES: No scleral icterus. No injection or drainage. NECK: trachea midline. No JVD CARDIOVASCULAR: Regular rate and rhythm. RESPIRATORY: Breath sounds equal bilaterally. No accessory muscle use. GASTROINTESTINAL: Abdomen soft, non-tender, nondistended. MUSCULOSKELETAL: No cyanosis, or edema. Neuro: encephalopathic. tracks with eyes. does not withdraw to pain or follow commands. very weak intermittent cough. A/P Assessment and Plan 1. VDRF 2. Aspiration pneumonia. 3. Acute kidney injury. 4. s/p Hyperkalemia. 5. Elevated liver enzymes. 6. History of atrial fibrillation on Pradaxa. 7. Diabetes mellitus. 8. Hypertension. 9. Anemia. 10. Hypothyroidism. 11. History of dementia and seizure disorder. 12. Positive C-diff. Plan: Neuro: On Fentanyl infusion for sedation. Daily sedation vacation/ Monitor neuro status MRA brain, and MRV brain negative. continue on Acyclovir HSV PCR pending. LP done 04/21- clear CSF, elevated glc and protein CT brain in the ER showed no evidence of any acute hemorrhage or mass effect. Dilantin level: 18.1 04/23, on Dilantin 100mg Q8 EEG 04/19- mod- severe encephalopathy- Neuro is following Pulm: Continue with vent support and maintain sats above 92%. Bronchodilators, ICU vent bundle. SBT trials as lobo. CT chest: Posterior bibasilar patchy opacities consistent with atelectasis and/or mild infiltrates. will need tracheostomy and placement if aggressive care is continued. palliative care following. will get general surgery involved for trach if family requests. CV: Monitor HR and BP keep MAP>65mmHg Lactic acid level measured at 0.8. On stress dose steroids- HC 100mg IV Q8 : Monitor renal function, intake and output and avoid nephrotoxins. Will need K replacement today Free water 250ml Q8, monitor sodium level. GI: Monitor LFT's, Hepatitis profile negative US abdomen: Nonvisualization of the common bile duct, pancreas and spleen. Simple cyst left kidney Normal liver, no gallstones. 04/19 CT abdomen/pelvis: No acute abd process. on Protonix 40mg IV daily for GI prophylaxis. On tube feeds--Advance tube feeds as lobo- Glucerna 1.5 @goal rate 45ml/h GI is following for anemia- no intervention at this time. ID: Given Vancomycin and Zosyn in ED. ID is following. ID: Dr. Kumar following. On ( Zosyn, Flagyl, PO Vanco) HSV PCR is negative Endo: SSI with Accu-Chek q. 4 hours for glycemic control. On Synthroid 50 mcg daily. 04/17 TSH level: 11.0. FT4:0.69(L), FT3 level: 1.67(L) 04/21: TSH: 3.2, FT4: 0.62, FT3:0.69 Random cortisol level measured 9.7. On Sterids- HC 100mg IV Q8 Heme: Monitor CBC s/p transfusion 1unit PRBC on 04/18 DVT prophylaxis with SCDs, heparin SQ on hold given anemia requiring blood transfusion GI prophylaxis- On Protonix 40mg IV BID Lines: Left subclavian CVP placed 04/18 Palliative care is following Level 3 Jennifer Restrepo MD Apr 24, 2017 07:31
[2017-04-24] MEDS: FREE WATER G-TUBE SCH ×3 (08:00→16:00)
[2017-04-24] MEDS: PANTOPRAZOLE SODIUM 40 MG VIAL IV SCH ×2 (09:07→19:54)
[2017-04-24] MEDS: DOCUSATE SODIUM 50 MG/SENNA 8.6 MG TAB PO SCH ×2 (09:07→19:54)
[2017-04-24] MEDS: LACTULOSE SYRUP 20 GM/30 ML CUP PO SCH ×2 (09:07→19:54)
--- NOTE | 2017-04-24 13:36 | HHI.GIFU ---
Subjective Remarks patient is awake on a vent. No obvious bleeding, tolerating TF okay, still with brown liquid stools in rectal bag. (Croy Duque) Objective Vitals I&O Vital Signs Date Time Temp Pulse Resp B/P Pulse Ox O2 Delivery O2 Flow Rate FiO2 04/24/17 12:00 98.2 74 16 136/60 100 04/24/17 12:00 35 04/24/17 12:00 74 04/24/17 10:41 98 35 04/24/17 10:00 75 04/24/17 08:00 98.4 70 16 99/52 99 04/24/17 08:00 70 04/24/17 08:00 35 04/24/17 07:29 99 35 04/24/17 06:00 74 04/24/17 04:04 100 35 04/24/17 04:00 66 04/24/17 04:00 98.4 66 16 107/52 100 04/24/17 04:00 35 04/24/17 02:00 65 04/24/17 00:55 98 35 04/24/17 00:00 97.2 65 16 109/56 96 04/24/17 00:00 35 04/24/17 00:00 65 04/23/17 22:00 68 04/23/17 20:25 100 35 04/23/17 20:00 67 04/23/17 20:00 35 04/23/17 20:00 97.6 67 16 116/58 99 04/23/17 18:00 64 04/23/17 16:00 71 04/23/17 16:00 97.7 71 14 133/64 100 04/23/17 16:00 35 04/23/17 14:00 71 I/O 04/23/17 04/23/17 04/23/17 04/24/17 04/24/17 04/24/17 07:00 15:00 23:00 07:00 15:00 23:00 Intake Total 1062 ml 1140 ml 366 ml 287 ml Output Total 900 ml 975 ml 150 ml 550 ml Balance 162 ml 165 ml 216 ml -263 ml IV Total 645 ml 587 ml 301 ml 196 ml Tube Feeding 117 ml 303 ml 65 ml 91 ml Other 300 ml 250 ml Output Urine Total 750 ml 575 ml 150 ml 150 ml Stool Total 150 ml 400 ml 400 ml Laboratory Laboratory Tests Test 04/23/17 04/24/17 19:57 03:30 Potassium Level 4.1 3.6 White Blood Count 20.0 Red Blood Count 2.32 Hemoglobin 7.2 Hematocrit 21.5 Mean Corpuscular Volume 92.7 Mean Corpuscular Hemoglobin 31.1 Mean Corpuscular Hemoglobin 33.5 Concent Red Cell Distribution Width 17.7 Platelet Count 148 Mean Platelet Volume 8.2 Neutrophils (%) (Auto) 90.6 Lymphocytes (%) (Auto) 4.3 Monocytes (%) (Auto) 4.7 Eosinophils (%) (Auto) 0.3 Basophils (%) (Auto) 0.1 Neutrophils # (Auto) 18.1 Lymphocytes # (Auto) 0.9 Monocytes # (Auto) 0.9 Eosinophils # (Auto) 0.1 Basophils # (Auto) 0.0 CBC Comment DIFF FINAL Differential Comment Sodium Level 145 Chloride Level 111 Carbon Dioxide Level 26.0 Anion Gap 8 Blood Urea Nitrogen 24 Creatinine 1.01 Estimat Glomerular Filtration 87 Rate Random Glucose 109 Calcium Level 8.0 Phosphorus Level 2.6 Magnesium Level 2.2 Total Bilirubin 0.2 Aspartate Amino Transf 36 (AST/SGOT) Alanine Aminotransferase 64 (ALT/SGPT) Alkaline Phosphatase 117 Total Protein 5.7 Albumin 2.0 Date/Time Procedure Status Source Growth 04/21/17 20:40 Gram Stain - Final Complete Cerebral Spinal Fluid Lumbar Puncture 04/21/17 20:40 CSF Culture - Final Complete Cerebral Spinal Fluid Lumbar Puncture NO GROWTH IN 72 HOURS 04/21/17 20:40 Fungal Smear - Final Resulted Cerebral Spinal Fluid Lumbar Puncture NO FUNGAL ELEMENTS SEEN. 04/21/17 20:40 Fungal Culture Resulted Cerebral Spinal Fluid Lumbar Puncture Pending 04/21/17 20:40 Acid Fast Stain - Final Resulted Cerebral Spinal Fluid Lumbar Puncture NO ACID FAST BACILLI SEEN 04/21/17 20:40 Mycobacterial Culture Resulted Cerebral Spinal Fluid Lumbar Puncture Pending Imaging Last Impressions Chest X-Ray 04/23/17 0000 Signed Impressions: Service Date/Time: Sunday, April 23, 2017 16:14 - CONCLUSION: 1. ET tube in approximately 4 cm above the clair. 2. Mild increased atelectasis in the right midlung zone. Binu Reyes MD Head/Brain Mag Res Venography 04/21/17 0000 Signed Impressions: Service Date/Time: Friday, April 21, 2017 14:09 - CONCLUSION: Negative Boubacar Pearl MD Head Magnetic Resonance Angiography 04/21/17 0000 Signed Impressions: Service Date/Time: Friday, April 21, 2017 14:09 - CONCLUSION: Normal examination. Boubacar Pearl MD Brain MRI 04/20/17 0000 Signed Impressions: Service Date/Time: Thursday, April 20, 2017 14:14 - CONCLUSION: Symmetric bilateral frontal and parietal high convexity cortical edema. Unusual appearance in which venous infarction and encephalitis should be considered among the differential possibilities. Boubacar Pearl MD Chest CT 04/19/17 0000 Signed Impressions: Service Date/Time: Wednesday, April 19, 2017 17:19 - CONCLUSION: 1. Posterior bibasilar patchy opacities consistent with atelectasis and/or mild infiltrates. Clinical correlation is recommended. 2. Tiny bilateral pleural effusions. 3. Cardiomegaly and coronary artery calcifications. 4. Degenerative changes and scoliosis of the thoracic spine. Rolando Rowe MD Abdomen/Pelvis CT 04/19/17 0000 Signed Impressions: Service Date/Time: Wednesday, April 19, 2017 17:16 - CONCLUSION: 1. Tiny bilateral pleural effusions with adjacent patchy infiltrates consistent with atelectasis and/or pneumonia. Clinical correlation is recommended. 2. No acute intraabdominal process. 3. Cardiomegaly and coronary artery calcifications. 4. Degenerative changes and scoliosis of the thoracolumbar spine. Rolando Rowe MD Head CT 04/17/17 1212 Signed Impressions: Service Date/Time: Monday, April 17, 2017 14:38 - CONCLUSION: Slight atrophic and small vessel ischemic changes without any evidence for acute hemorrhage or mass effect. Omer Urena MD Abdomen Ultrasound 04/17/17 0000 Signed Impressions: Service Date/Time: Monday, April 17, 2017 15:56 - CONCLUSION: 1. Nonvisualization of the common bile duct, pancreas and spleen. 2. Simple cyst left kidney. Dariusz Louis MD Physical Exam HEENT: normocephalic; atraumatic; no jaundice. CHEST: Chest is clear to auscultation and percussion. OETT to vent CARDIAC: Regular rate and rhythm with no murmur gallop or rubs. ABDOMEN: Soft, nondistended, nontender; no hepatosplenomegaly; bowel sounds are present in all four quadrants. EXTREMITIES: No clubbing, cyanosis, or edema. SKIN: Normal; no rash; no jaundice. [employer]: alert on a vent . (Cory Duque) Assessment and Plan Plan - Acute on chronic anemia- likely multi factorial, this could be chronic dz related, but GI bleed couldn't be excluded. No obvious bleeding reported, Pradaxa on hold, currently on Heparin No documented EGD/colonoscopy, Ct as below hgb stable - C-diff- Stools came (+) for C-diff and Epid 027, he is on Vancomycin, Flagyl has been ordered by [facility] - Elevated LFTs- RESOLVED- likely ischemic effect, he did have episodes of hypotension. hepatitis panel (-), will monitor for now. Hepatitis panel negative CT of abd/pelvis on (04/19/17) 1. Tiny bilateral pleural effusions with adjacent patchy infiltrates consistent with atelectasis and/or pneumonia. Clinical correlation is recommended. 2. No acute intraabdominal process. 3. Cardiomegaly and coronary artery calcifications. 4. Degenerative changes and scoliosis of the thoracolumbar spine. US on (04/17)---> Nonvisualization of the common bile duct, pancreas and spleen. 2. Simple cyst left kidney. - AMS- blood cx negative so far, urine cx negative. LP done 04/21- clear CSF, elevated glc and protein. EEG 04/19- mod- severe encephalopathy- neuro on the case - Acute respiratory failure- intubated by [facility] - Acute kidney injury - A-fib ( on Pradaxa, this is on hold now), dementia, DM, HTN per attending - Palliative care on the case, family wish for aggressive tx Plan: - TF per attending - No obvious bleeding, will hold off on EGD/colonoscopy for now - Stools (+) for c-diff, cont. Vancomycin - Cont. Flagyl - Monitor hh - Transfuse as needed - Supportive care - Patient seen and examined by Dr. Perez and myself and this note is written on his behalf. (Cory Duque) Physician Comments Patient seen and examined Agree with above Continue with current supportive care Monitor labs (Emile Perez MD) Cory Duque Apr 24, 2017 13:36 Emile Perez MD Apr 24, 2017 18:40
--- NOTE | 2017-04-24 14:15 | HHI.IDPN ---
Subjective Subjective Remarks is a 76 y/o CM assisted resident with a reported PMHx of hypothyroidism, hypertension, diabetes mellitus, dementia, seizure disorder on Dilantin, atrial fibrillation on Pradaxa who presented to the [facility] Emergency Department for confusion and altered mental status. The patient was also found hypothermic with a temperature of 88.9 rectally. History obtained from review of medical records no family could be reached. His laboratory data showed acute kidney injury with creatinine level 1.37 and hyperkalemia with a potassium level 6.0. His lactic acid level measured at 0.8. In addition, he was found to have elevated liver enzymes with AST 177, ALT 168 and total bilirubin less than 0.1. Due to altered mental status, the patient was intubated with etomidate, vecuronium and placed on full mechanical ventilation. CT scan of the brain obtained in the emergency department showed slight atrophic and small vessel ischemic changes without any evidence for acute hemorrhage or mass effect. Chest x-ray post intubation showed right upper lobe and left lower lobe densities and adequate placement of the ET tube. In the emergency room, the patient was given approximately 1.5 liters of crystalloids in addition to vancomycin and Zosyn for possible aspiration pneumonia.\ He has + C.diff MRI showed unusual appearance in which venous infarction and encephalitis should be considered among the differential possibilities. MRA/MRV normal. HSV PCR neg. Pt remains intubated, remains intubated. he has large amount of thick odom secretions Overnight events reviewed. Not much meaningful response. Opens eyes spontaneously. No fever No rash Continues to have large volume watery diarrhea (500 cc/shift), has dignishield. Antibiotics Vanco oral Flagyl oral Zosyn IV Lines Line sites with no e.o infection. Past Medical History 1. Dementia. 2. Hypertension. 3. Seizure disorder. 4. Atrial fibrillation. 5. Diabetes. 6. Gastroesophageal reflux disease (GERD). 7. Schizophrenia. 8. Chronic kidney disease. 9. Anemia. 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 Vital Signs Date Time Temp Pulse Resp B/P Pulse Ox O2 Delivery O2 Flow Rate FiO2 04/24/17 12:00 98.2 74 16 136/60 100 04/24/17 12:00 35 04/24/17 12:00 74 04/24/17 10:41 98 35 04/24/17 10:00 75 04/24/17 08:00 98.4 70 16 99/52 99 04/24/17 08:00 70 04/24/17 08:00 35 04/24/17 07:29 99 35 04/24/17 06:00 74 04/24/17 04:04 100 35 04/24/17 04:00 66 04/24/17 04:00 98.4 66 16 107/52 100 04/24/17 04:00 35 04/24/17 02:00 65 04/24/17 00:55 98 35 04/24/17 00:00 97.2 65 16 109/56 96 04/24/17 00:00 35 04/24/17 00:00 65 04/23/17 22:00 68 04/23/17 20:25 100 35 04/23/17 20:00 67 04/23/17 20:00 35 04/23/17 20:00 97.6 67 16 116/58 99 04/23/17 18:00 64 04/23/17 16:00 71 04/23/17 16:00 97.7 71 14 133/64 100 04/23/17 16:00 35 04/23/17 04/23/17 04/24/17 15:00 23:00 07:00 Intake Total 1140 ml 366 ml 287 ml Output Total 975 ml 150 ml 550 ml Balance 165 ml 216 ml -263 ml IV Total 587 ml 301 ml 196 ml Tube Feeding 303 ml 65 ml 91 ml Other 250 ml Output Urine Total 575 ml 150 ml 150 ml Stool Total 400 ml 400 ml . Laboratory Tests Test 04/23/17 04/24/17 04:00 03:30 White Blood Count 10.9 TH/MM3 20.0 TH/MM3 Red Blood Count 2.30 MIL/MM3 2.32 MIL/MM3 Hemoglobin 7.2 GM/DL 7.2 GM/DL Hematocrit 21.5 % 21.5 % Mean Corpuscular Volume 93.2 FL 92.7 FL Mean Corpuscular Hemoglobin 31.1 PG 31.1 PG Mean Corpuscular Hemoglobin 33.4 % 33.5 % Concent Red Cell Distribution Width 18.2 % 17.7 % Platelet Count 138 TH/MM3 148 TH/MM3 Mean Platelet Volume 8.0 FL 8.2 FL Neutrophils (%) (Auto) 90.6 % Lymphocytes (%) (Auto) 4.3 % Monocytes (%) (Auto) 4.7 % Eosinophils (%) (Auto) 0.3 % Basophils (%) (Auto) 0.1 % Neutrophils # (Auto) 18.1 TH/MM3 Lymphocytes # (Auto) 0.9 TH/MM3 Monocytes # (Auto) 0.9 TH/MM3 Eosinophils # (Auto) 0.1 TH/MM3 Basophils # (Auto) 0.0 TH/MM3 CBC Comment DIFF FINAL Differential Comment Laboratory Tests Test 04/23/17 04/23/17 04/24/17 04:00 19:57 03:30 Sodium Level 142 MEQ/L 145 MEQ/L Potassium Level 3.0 MEQ/L 4.1 MEQ/L 3.6 MEQ/L Chloride Level 109 MEQ/L 111 MEQ/L Carbon Dioxide Level 24.0 MEQ/L 26.0 MEQ/L Anion Gap 9 MEQ/L 8 MEQ/L Blood Urea Nitrogen 23 MG/DL 24 MG/DL Creatinine 1.07 MG/DL 1.01 MG/DL Estimat Glomerular Filtration 81 ML/MIN 87 ML/MIN Rate Random Glucose 136 MG/DL 109 MG/DL Calcium Level 8.0 MG/DL 8.0 MG/DL Phosphorus Level 2.6 MG/DL Magnesium Level 2.2 MG/DL Total Bilirubin 0.2 MG/DL Aspartate Amino Transf 36 U/L (AST/SGOT) Alanine Aminotransferase 64 U/L (ALT/SGPT) Alkaline Phosphatase 117 U/L Total Protein 5.7 GM/DL Albumin 2.0 GM/DL Microbiology Date/Time Procedure Status Source Growth 04/21/17 20:40 Gram Stain - Final Complete Cerebral Spinal Fluid Lumbar Puncture 04/21/17 20:40 CSF Culture - Final Complete Cerebral Spinal Fluid Lumbar Puncture NO GROWTH IN 72 HOURS 04/21/17 20:40 Acid Fast Stain - Final Resulted Cerebral Spinal Fluid Lumbar Puncture NO ACID FAST BACILLI SEEN 04/21/17 20:40 Mycobacterial Culture Resulted Cerebral Spinal Fluid Lumbar Puncture Pending 04/21/17 20:40 Fungal Smear - Final Resulted Cerebral Spinal Fluid Lumbar Puncture NO FUNGAL ELEMENTS SEEN. 04/21/17 20:40 Fungal Culture Resulted Cerebral Spinal Fluid Lumbar Puncture Pending Imaging Last Impressions Chest X-Ray 04/23/17 0000 Signed Impressions: Service Date/Time: Sunday, April 23, 2017 16:14 - CONCLUSION: 1. ET tube in approximately 4 cm above the clair. 2. Mild increased atelectasis in the right midlung zone. Binu Reyes MD Head/Brain Mag Res Venography 04/21/17 0000 Signed Impressions: Service Date/Time: Friday, April 21, 2017 14:09 - CONCLUSION: Negative Boubacar Pearl MD Head Magnetic Resonance Angiography 04/21/17 Signed Impressions: Service Date/Time: Friday, April 21, 2017 14:09 - CONCLUSION: Normal examination. Boubacar Pearl MD Brain MRI 04/20/17 Signed Impressions: Service Date/Time: Thursday, April 20, 2017 14:14 - CONCLUSION: Symmetric bilateral frontal and parietal high convexity cortical edema. Unusual appearance in which venous infarction and encephalitis should be considered among the differential possibilities. Boubacar Pearl MD Chest CT 04/19/17 0000 Signed Impressions: Service Date/Time: Wednesday, April 19, 2017 17:19 - CONCLUSION: 1. Posterior bibasilar patchy opacities consistent with atelectasis and/or mild infiltrates. Clinical correlation is recommended. 2. Tiny bilateral pleural effusions. 3. Cardiomegaly and coronary artery calcifications. 4. Degenerative changes and scoliosis of the thoracic spine. Rolando Rowe MD Abdomen/Pelvis CT 04/19/17 0000 Signed Impressions: Service Date/Time: Wednesday, April 19, 2017 17:16 - CONCLUSION: 1. Tiny bilateral pleural effusions with adjacent patchy infiltrates consistent with atelectasis and/or pneumonia. Clinical correlation is recommended. 2. No acute intraabdominal process. 3. Cardiomegaly and coronary artery calcifications. 4. Degenerative changes and scoliosis of the thoracolumbar spine. Rolando Rowe MD Head CT 04/17/17 1212 Signed Impressions: Service Date/Time: Monday, April 17, 2017 14:38 - CONCLUSION: Slight atrophic and small vessel ischemic changes without any evidence for acute hemorrhage or mass effect. Omer Urena MD Abdomen Ultrasound 04/17/17 0000 Signed Impressions: Service Date/Time: Monday, April 17, 2017 15:56 - CONCLUSION: 1. Nonvisualization of the common bile duct, pancreas and spleen. 2. Simple cyst left kidney. Dariusz Louis MD Physical Exam GENERAL: This is a well-nourished, well-developed patient, in no apparent distress. SKIN: No rashes, ecchymoses or lesions. Cool and dry. HEAD: Atraumatic. Normocephalic. No temporal or scalp tenderness. EYES: Pupils equal round and reactive. Extraocular motions intact. No scleral icterus. No injection or drainage. ENT: Intubated. NECK: Trachea midline. Supple, nontender, no meningeal signs. CARDIOVASCULAR: Regular rate and rhythm without murmurs, gallops, or rubs. RESPIRATORY: Clear to auscultation. Breath sounds equal bilaterally. No wheezes , rales, or rhonchi. GASTROINTESTINAL: Abdomen soft, non-tender, nondistended. MUSCULOSKELETAL: Extremities without clubbing, cyanosis, or edema. No joint tenderness, effusion, or edema noted. No calf tenderness. Negative Homans sign bilaterally. NEUROLOGICAL: Off sedation, moving upper body and neck. No meaningful response. Opens eyes spontaneously. Psych: could not be assessed IV line sites with no e.o infection. Assessment & Plan Remarks Possible Sepsis now (hypothermia, leucocytosis, hypotension). Hypothermia: hypothyroidism, infection Cdiff, hypervirulent 027 strain Acute metabolic encephalopathy: infection, metabolic, hypothyroidism - HSV PCR neg Acute respiratory failure on vent, stable but not tolerating CPAP Possible HCAP, aspiration pneumonia on admission now improved. Acute renal failure: was on Bactrim as outpt plus ? prerenal and sepsis. H/o seizures Leukemoid reaction secondary to Cdiff. Recs: DC Zosyn IV (aspiration Pneumonia) Continue Flagyl oral (for anaerobic coverage and Cdiff) Continue oral Vanco Follow HIV PCR. Follow CSF encephalitis panel and CSF TRINITY virus and VDRL. Follow sputum cultures Follow cultures Follow clinically. Reviewed Neurology consult note. Richardson COLEMAN for pt and also [facility] . Sana Kumar MD Apr 24, 2017 14:15
[2017-04-24 15:37] LABS: AUTOMATED NEUTROPHIL # 20.4 TH/MM3 (1.8-7.7); BASOPHIL % 0.1 % (0.0-2.0); HEMATOCRIT 23.1 % (39.0-51.0); HEMO FLAGS DIFF FINAL; LYMPH % 6.6 % (9.0-44.0); LYMPHOCYTE # 1.5 TH/MM3 (1.0-4.8); MEAN CORPUSCULAR HEMOGLOBIN 30.6 PG (27.0-34.0); MEAN CORPUSCULAR HGB CONC 32.6 % (32.0-36.0); MONO % 3.7 % (0.0-8.0); NEUT % 89.6 % (16.0-70.0); PLATELET COUNT 200 TH/MM3 (150-450); RED BLOOD COUNT 2.46 MIL/MM3 (4.50-5.90); RED CELL DISTRIBUTION WIDTH 17.5 % (11.6-17.2); WHITE BLOOD COUNT 22.8 TH/MM3 (4.0-11.0)
[2017-04-24 19:52] LABS: VDRL CSF NON-REACTIVE (())
[2017-04-24] MEDS: fentaNYL DRIP 250 ML IV SCH (19:54)
[2017-04-24] MEDS ORDERED: DEXMEDETOMIDINE INJ 1,000 MCG in SODIUM CHLOR 0.9% 250 ML INJ 250 ML IV SCH (22:00)
[2017-04-24] MEDS ORDERED: DEXMEDETOMIDINE INJ 1,000 MCG in SODIUM CHLOR 0.9% 250 ML INJ 240 ML IV SCH (22:00)
[2017-04-24] MEDS ORDERED: PROPOFOL 1000 MG/100 ML INJ 100 ML ONE (22:14)
[2017-04-24] MEDS ORDERED: SUCCINYLCHOLINE CHLORIDE 200 MG/10 ML VIAL ONE (22:14)
[2017-04-25] VITALS (14 sets, daily range): BP systolic 123–154; BP diastolic 58–65; PULSE 57–80; RESP 11–19; TEMP 97–97.7; O2SAT 97–100
[2017-04-25] MEDS: FREE WATER G-TUBE SCH
[2017-04-25] MEDS: VANCOMYCIN 500 MG VIAL (FOR ORAL USE ONLY) PO SCH ×4 (00:19→18:43)
[2017-04-25] MEDS: HYDROCORTISONE SOD SUCCINATE 100 MG VIAL IV PUSH SCH ×3 (00:19→14:26)
[2017-04-25 01:01] LABS: CSF CRYPTOCOCCUS AG CONF ND (NOT DETECTD)
[2017-04-25] MEDS: CHLORHEXIDINE GLUCONATE 2 % 1 PACK (2 CLOTHS) TOP SCH (04:00)
[2017-04-25] MEDS: LEVOTHYROXINE SODIUM 50 MCG TAB PO SCH (05:39)
[2017-04-25] MEDS: metroNIDAZOLE 500 MG TAB PO SCH ×3 (05:40→20:32)
[2017-04-25] MEDS: PHENYTOIN INJ 100 MG/2 ML VIAL IV SCH ×3 (05:40→20:32)
[2017-04-25 06:17] LABS: BICARBONATE 24.7 MEQ/L (21.0-32.0); POTASSIUM 3.5 MEQ/L (3.5-5.1)
--- NOTE | 2017-04-25 07:23 | HHI.CCPN ---
Subjective Remarks/Hospital Course The patient is a 76-year-old assisted resident with a past medical history of hypothyroidism, hypertension, diabetes mellitus, dementia, seizure disorder, atrial fibrillation on Pradaxa who presented to the [facility] Emergency Department for confusion and altered mental status. The patient was also found hypothermic with a temperature of 88.9 rectally. His laboratory data showed acute kidney injury with creatinine level 1.37 and hyperkalemia with a potassium level 6.0. His lactic acid level measured at 0.8. In addition, he was found to have elevated liver enzymes with AST 177, ALT 168 and total bilirubin less than 0.1. Due to altered mental status, the patient was intubated with etomidate, vecuronium and placed on full mechanical ventilation. CT scan of the brain obtained in the emergency department showed slight atrophic and small vessel ischemic changes without any evidence for acute hemorrhage or mass effect. Chest x-ray post intubation showed right upper lobe and left lower lobe densities and adequate placement of the ET tube. In the emergency room, the patient was given approximately 1.5 liters of crystalloids in addition to vancomycin and Zosyn for possible aspiration pneumonia. Other significant labs showed a TSH of 11.0 and a random cortisol level of 9.7. He was also be given Decadron 10 mg IV push. ABG post-intubation showed a pH of 7.43, CO2 38, pAO2 186, bicarb 25, saturation 98% on assist control ventilation with a rate of 16, tidal volume 500, PEEP of 5 and FIO2 of 50%. When seen in the emergency room, he was sedated with Versed. 04/18 Patient is intubated and sedated with Versed 5mg started on Levophed 4 mics overnight. Hgb 6.8 this morning. 04/19 Patient remains intubated with versed. Off Levophed. s/p transfusion 1unit PRBC yesterday. 04/20 Patient is off Levophed,on Versed 2mg/hr. Tmax 100.4 04/21: off pressors. remains encephalopathic. going for MRA/MRV. plan for LP after if negative. hgb 7 this morning. 04/22: no meaningful change. remains encephalopathic. intermittently tracks. LP without overt evidence of bacterial infection. will need to start thinking about trach if the family continues to want to be aggressive. 04/23 Patient had malfunction ETT last night and was reintubated. Afebrile. 04/24 No events overnight. Sedated with Fentanyl and intubated. Afebrile. 04/25 Patient was extubated last night on 2L oxygen with good sats. Objective Vital Signs Date Time Temp Pulse Resp B/P Pulse Ox O2 Delivery O2 Flow Rate FiO2 04/25/17 06:00 65 04/25/17 04:00 97.7 13 130/62 97 04/24/17 22:19 Nasal Cannula 2.00 04/24/17 20:00 35 Intake and Output 04/24/17 04/24/17 04/25/17 08:00 16:00 00:00 Intake Total 287 ml 826 ml 711 ml Output Total 550 ml 950 ml 350 ml Balance -263 ml -124 ml 361 ml Result Diagram: 04/24/17 1501 04/25/17 0411 Other Results Laboratory Tests Test 04/24/17 04/25/17 15:01 04:11 White Blood Count 22.8 TH/MM3 Red Blood Count 2.46 MIL/MM3 Hemoglobin 7.5 GM/DL Hematocrit 23.1 % Mean Corpuscular Volume 94.0 FL Mean Corpuscular Hemoglobin 30.6 PG Mean Corpuscular Hemoglobin 32.6 % Concent Red Cell Distribution Width 17.5 % Platelet Count 200 TH/MM3 Mean Platelet Volume 7.9 FL Neutrophils (%) (Auto) 89.6 % Lymphocytes (%) (Auto) 6.6 % Monocytes (%) (Auto) 3.7 % Eosinophils (%) (Auto) 0.0 % Basophils (%) (Auto) 0.1 % Neutrophils # (Auto) 20.4 TH/MM3 Lymphocytes # (Auto) 1.5 TH/MM3 Monocytes # (Auto) 0.8 TH/MM3 Eosinophils # (Auto) 0.0 TH/MM3 Basophils # (Auto) 0.0 TH/MM3 CBC Comment DIFF FINAL Differential Comment Sodium Level 144 MEQ/L Potassium Level 3.5 MEQ/L Chloride Level 111 MEQ/L Carbon Dioxide Level 24.7 MEQ/L Anion Gap 8 MEQ/L Blood Urea Nitrogen 21 MG/DL Creatinine 0.90 MG/DL Estimat Glomerular Filtration 99 ML/MIN Rate Random Glucose 120 MG/DL Calcium Level 8.0 MG/DL Imaging Last Impressions Chest X-Ray 04/23/17 0000 Signed Impressions: Service Date/Time: Sunday, April 23, 2017 16:14 - CONCLUSION: 1. ET tube in approximately 4 cm above the clair. 2. Mild increased atelectasis in the right midlung zone. Binu Reyes MD Head/Brain Mag Res Venography 04/21/17 0000 Signed Impressions: Service Date/Time: Friday, April 21, 2017 14:09 - CONCLUSION: Negative Boubacar Pearl MD Head Magnetic Resonance Angiography 04/21/17 0000 Signed Impressions: Service Date/Time: Friday, April 21, 2017 14:09 - CONCLUSION: Normal examination. Boubacar Pearl MD Brain MRI 04/20/17 0000 Signed Impressions: Service Date/Time: Thursday, April 20, 2017 14:14 - CONCLUSION: Symmetric bilateral frontal and parietal high convexity cortical edema. Unusual appearance in which venous infarction and encephalitis should be considered among the differential possibilities. Boubacar Pearl MD Chest CT 04/19/17 0000 Signed Impressions: Service Date/Time: Wednesday, April 19, 2017 17:19 - CONCLUSION: 1. Posterior bibasilar patchy opacities consistent with atelectasis and/or mild infiltrates. Clinical correlation is recommended. 2. Tiny bilateral pleural effusions. 3. Cardiomegaly and coronary artery calcifications. 4. Degenerative changes and scoliosis of the thoracic spine. Rolando Rowe MD Abdomen/Pelvis CT 04/19/17 0000 Signed Impressions: Service Date/Time: Wednesday, April 19, 2017 17:16 - CONCLUSION: 1. Tiny bilateral pleural effusions with adjacent patchy infiltrates consistent with atelectasis and/or pneumonia. Clinical correlation is recommended. 2. No acute intraabdominal process. 3. Cardiomegaly and coronary artery calcifications. 4. Degenerative changes and scoliosis of the thoracolumbar spine. Rolando Rowe MD Head CT 04/17/17 1212 Signed Impressions: Service Date/Time: Monday, April 17, 2017 14:38 - CONCLUSION: Slight atrophic and small vessel ischemic changes without any evidence for acute hemorrhage or mass effect. Omer Urena MD Abdomen Ultrasound 04/17/17 0000 Signed Impressions: Service Date/Time: Monday, April 17, 2017 15:56 - CONCLUSION: 1. Nonvisualization of the common bile duct, pancreas and spleen. 2. Simple cyst left kidney. Dairusz Louis MD Objective Remarks GENERAL: Patient is 76 yo lying in bed in no acute resp distress SKIN: Warm and dry. HEAD: Normocephalic. EYES: No scleral icterus. No injection or drainage. NECK: trachea midline. No JVD CARDIOVASCULAR: Regular rate and rhythm. RESPIRATORY: Breath sounds equal bilaterally. No accessory muscle use. GASTROINTESTINAL: Abdomen soft, non-tender, nondistended. MUSCULOSKELETAL: No cyanosis, or edema. Neuro: Able to open eyes, A/P Assessment and Plan 1. VDRF - Extubated 04/24 2. Aspiration pneumonia. 3. Acute kidney injury. 4. s/p Hyperkalemia. 5. Elevated liver enzymes. 6. History of atrial fibrillation on Pradaxa. 7. Diabetes mellitus. 8. Hypertension. 9. Anemia. 10. Hypothyroidism. 11. History of dementia and seizure disorder. 12. Positive C-diff. Plan: Neuro: Monitor neuro status and avoid sedatives, wean off Precedex drip. MRA brain, and MRV brain negative. LP done 04/21- clear CSF, elevated glc and protein CT brain in the ER showed no evidence of any acute hemorrhage or mass effect. Dilantin level: 18.1 04/23, on Dilantin 100mg Q8 EEG 04/19- mod- severe encephalopathy- Neuro is following Pulm: Continue with oxygen and maintain sats above 92%. Bronchodilators, aspiration precautions CT chest: Posterior bibasilar patchy opacities consistent with atelectasis and/or mild infiltrates. CV: Monitor HR and BP keep MAP>65mmHg Lactic acid level measured at 0.8. On stress dose steroids- HC 100mg IV Q8 : Monitor renal function, intake and output and avoid nephrotoxins. GI: Monitor LFT's, Hepatitis profile negative US abdomen: Nonvisualization of the common bile duct, pancreas and spleen. Simple cyst left kidney Normal liver, no gallstones. 04/19 CT abdomen/pelvis: No acute abd process. on Protonix 40mg IV daily for GI prophylaxis. Speech eval diet per speech GI is following for anemia- no intervention at this time. ID: Given Vancomycin and Zosyn in ED. ID is following. ID: Dr. Kumar following. On (Flagyl, PO Vanco) HSV PCR is negative, follow up on CSF viral panel. Endo: SSI with Accu-Chek q. 4 hours for glycemic control. On Synthroid 50 mcg daily. 04/17 TSH level: 11.0. FT4:0.69(L), FT3 level: 1.67(L) 04/21: TSH: 3.2, FT4: 0.62, FT3:0.69 Random cortisol level measured 9.7. On Sterids- HC 100mg IV Q8 Heme: Monitor CBC s/p transfusion 1unit PRBC on 04/18 DVT prophylaxis with SCDs, heparin SQ on hold given anemia requiring blood transfusion GI prophylaxis- On Protonix 40mg IV BID Lines: Left subclavian CVP placed 04/18, d/c central line and place peripheral IV 's. Palliative care is following Level 3 Jennifer Restrepo MD Apr 25, 2017 07:23
[2017-04-25] MEDS: DOCUSATE SODIUM 50 MG/SENNA 8.6 MG TAB PO SCH ×2 (08:22→20:32)
[2017-04-25] MEDS: PANTOPRAZOLE SODIUM 40 MG VIAL IV SCH ×2 (08:22→20:32)
[2017-04-25] MEDS: LACTULOSE SYRUP 20 GM/30 ML CUP PO SCH ×2 (08:22→20:32)
[2017-04-25 08:51] LABS: AUTOMATED NEUTROPHIL # 12.9 TH/MM3 (1.8-7.7); EOSINOPHIL % 0.1 % (0.0-4.0); HEMATOCRIT 21.7 % (39.0-51.0); HEMO FLAGS DIFF FINAL; LYMPH % 7.6 % (9.0-44.0); LYMPHOCYTE # 1.1 TH/MM3 (1.0-4.8); MEAN CELL VOLUME 93.3 FL (80.0-100.0); MEAN CORPUSCULAR HEMOGLOBIN 31.6 PG (27.0-34.0); MEAN CORPUSCULAR HGB CONC 33.9 % (32.0-36.0); MONO % 3.9 % (0.0-8.0); NEUT % 88.4 % (16.0-70.0); PLATELET COUNT 181 TH/MM3 (150-450); RED BLOOD COUNT 2.33 MIL/MM3 (4.50-5.90); RED CELL DISTRIBUTION WIDTH 17.4 % (11.6-17.2); WHITE BLOOD COUNT 14.6 TH/MM3 (4.0-11.0)
--- NOTE | 2017-04-25 10:57 | HHI.GIFU ---
Subjective Remarks Lying in bed in no distress. Extubated last night. No active bleeding. ( Ana Maria Burrell) Objective Vitals I&O Vital Signs Date Time Temp Pulse Resp B/P Pulse Ox O2 Delivery O2 Flow Rate FiO2 04/25/17 08:00 57 04/25/17 07:22 100 Nasal Cannula 2.00 04/25/17 06:00 65 04/25/17 04:00 97.7 64 13 130/62 97 04/25/17 04:00 64 04/25/17 02:00 69 04/25/17 00:00 71 04/25/17 00:00 98.2 71 16 123/58 99 04/24/17 22:19 100 Nasal Cannula 2.00 04/24/17 22:18 100 Nasal Cannula 2 04/24/17 22:00 80 04/24/17 20:00 99.1 76 121/58 100 04/24/17 20:00 35 04/24/17 20:00 76 04/24/17 19:59 100 35 04/24/17 18:00 74 04/24/17 16:10 96 35 04/24/17 16:00 99.3 86 16 132/59 100 04/24/17 16:00 35 04/24/17 16:00 86 04/24/17 14:13 100 35 04/24/17 14:00 77 04/24/17 12:00 98.2 74 16 136/60 100 04/24/17 12:00 35 04/24/17 12:00 74 I/O 04/24/17 04/24/17 04/24/17 04/25/17 04/25/17 04/25/17 07:00 15:00 23:00 07:00 15:00 23:00 Intake Total 287 ml 826 ml 711 ml 161 ml Output Total 550 ml 950 ml 350 ml 450 ml Balance -263 ml -124 ml 361 ml -289 ml Intake Oral 50 ml IV Total 196 ml 208 ml 110 ml 111 ml Tube Feeding 91 ml 268 ml 351 ml 0 ml Tube Irrigant 100 ml Other 250 ml 250 ml Output Urine Total 150 ml 350 ml 250 ml 350 ml Stool Total 400 ml 600 ml 100 ml 100 ml Laboratory Laboratory Tests Test 04/24/17 04/25/17 04/25/17 15:01 04:11 08:20 White Blood Count 22.8 14.6 Red Blood Count 2.46 2.33 Hemoglobin 7.5 7.3 Hematocrit 23.1 21.7 Mean Corpuscular Volume 94.0 93.3 Mean Corpuscular Hemoglobin 30.6 31.6 Mean Corpuscular Hemoglobin 32.6 33.9 Concent Red Cell Distribution Width 17.5 17.4 Platelet Count 200 181 Mean Platelet Volume 7.9 7.8 Neutrophils (%) (Auto) 89.6 88.4 Lymphocytes (%) (Auto) 6.6 7.6 Monocytes (%) (Auto) 3.7 3.9 Eosinophils (%) (Auto) 0.0 0.1 Basophils (%) (Auto) 0.1 0.0 Neutrophils # (Auto) 20.4 12.9 Lymphocytes # (Auto) 1.5 1.1 Monocytes # (Auto) 0.8 0.6 Eosinophils # (Auto) 0.0 0.0 Basophils # (Auto) 0.0 0.0 CBC Comment DIFF FINAL DIFF FINAL Differential Comment Sodium Level 144 Potassium Level 3.5 Chloride Level 111 Carbon Dioxide Level 24.7 Anion Gap 8 Blood Urea Nitrogen 21 Creatinine 0.90 Estimat Glomerular Filtration 99 Rate Random Glucose 120 Calcium Level 8.0 Date/Time Procedure Status Source Growth 04/21/17 20:40 Gram Stain - Final Complete Cerebral Spinal Fluid Lumbar Puncture 04/21/17 20:40 CSF Culture - Final Complete Cerebral Spinal Fluid Lumbar Puncture NO GROWTH IN 72 HOURS 04/21/17 20:40 Fungal Smear - Final Resulted Cerebral Spinal Fluid Lumbar Puncture NO FUNGAL ELEMENTS SEEN. 04/21/17 20:40 Fungal Culture Resulted Cerebral Spinal Fluid Lumbar Puncture Pending 04/21/17 20:40 Acid Fast Stain - Final Resulted Cerebral Spinal Fluid Lumbar Puncture NO ACID FAST BACILLI SEEN 04/21/17 20:40 Mycobacterial Culture Resulted Cerebral Spinal Fluid Lumbar Puncture Pending Imaging Last Impressions Chest X-Ray 04/23/17 0000 Signed Impressions: Service Date/Time: Sunday, April 23, 2017 16:14 - CONCLUSION: 1. ET tube in approximately 4 cm above the clair. 2. Mild increased atelectasis in the right midlung zone. Binu Reyes MD Head/Brain Mag Res Venography 04/21/17 0000 Signed Impressions: Service Date/Time: Friday, April 21, 2017 14:09 - CONCLUSION: Negative Boubacar Pearl MD Head Magnetic Resonance Angiography 04/21/17 0000 Signed Impressions: Service Date/Time: Friday, April 21, 2017 14:09 - CONCLUSION: Normal examination. Boubacar Pearl MD Brain MRI 04/20/17 0000 Signed Impressions: Service Date/Time: Thursday, April 20, 2017 14:14 - CONCLUSION: Symmetric bilateral frontal and parietal high convexity cortical edema. Unusual appearance in which venous infarction and encephalitis should be considered among the differential possibilities. Boubacar Pearl MD Chest CT 04/19/17 0000 Signed Impressions: Service Date/Time: Wednesday, April 19, 2017 17:19 - CONCLUSION: 1. Posterior bibasilar patchy opacities consistent with atelectasis and/or mild infiltrates. Clinical correlation is recommended. 2. Tiny bilateral pleural effusions. 3. Cardiomegaly and coronary artery calcifications. 4. Degenerative changes and scoliosis of the thoracic spine. Rolando Rowe MD Abdomen/Pelvis CT 04/19/17 0000 Signed Impressions: Service Date/Time: Wednesday, April 19, 2017 17:16 - CONCLUSION: 1. Tiny bilateral pleural effusions with adjacent patchy infiltrates consistent with atelectasis and/or pneumonia. Clinical correlation is recommended. 2. No acute intraabdominal process. 3. Cardiomegaly and coronary artery calcifications. 4. Degenerative changes and scoliosis of the thoracolumbar spine. Rolando Rowe MD Head CT 04/17/17 1212 Signed Impressions: Service Date/Time: Monday, April 17, 2017 14:38 - CONCLUSION: Slight atrophic and small vessel ischemic changes without any evidence for acute hemorrhage or mass effect. Omer Urena MD Abdomen Ultrasound 04/17/17 0000 Signed Impressions: Service Date/Time: Monday, April 17, 2017 15:56 - CONCLUSION: 1. Nonvisualization of the common bile duct, pancreas and spleen. 2. Simple cyst left kidney. Dariusz Louis MD Physical Exam HEENT: Normocephalic; atraumatic; no jaundice. CHEST: CTA CARDIAC: RRR with no murmur gallop or rubs. ABDOMEN: Soft, nondistended, nontender; no hepatosplenomegaly; bowel sounds are present in all four quadrants. EXTREMITIES: No clubbing, cyanosis, or edema. SKIN: Normal; no rash; no jaundice. [employer]: Awake and alert. (Ana Maria Burrell) Assessment and Plan Plan - Acute on chronic anemia- likely multi factorial, this could be chronic dz related, but GI bleed couldn't be excluded. No obvious bleeding reported, heparin on hold. No documented EGD/colonoscopy, CT as below. (04/25) 7.3/21.7. - C-diff- Stools came (+) for C-diff and Epid 027, he is on Vancomycin, Flagyl has been ordered by [facility] - Elevated LFTs- RESOLVED- likely ischemic effect, he did have episodes of hypotension. hepatitis panel (-), will monitor for now. CT of abd/pelvis on (04/19/17) 1. Tiny bilateral pleural effusions with adjacent patchy infiltrates consistent with atelectasis and/or pneumonia. Clinical correlation is recommended. 2. No acute intraabdominal process. 3. Cardiomegaly and coronary artery calcifications. 4. Degenerative changes and scoliosis of the thoracolumbar spine. US on (04/17/17)---> Nonvisualization of the common bile duct, pancreas and spleen. 2. Simple cyst left kidney. - AMS- blood culture, no growth in 5 days, urine cx negative. LP done 04/21- clear CSF, elevated glc and protein. EEG 04/19- mod- severe encephalopathy- neuro on the case - Acute respiratory failure- intubated by [facility] - Acute kidney injury - A-fib ( on Pradaxa, this is on hold now), dementia, DM, HTN per attending - Palliative care on the case, family wish for aggressive tx Plan: - TF per attending - No obvious bleeding, will hold off on EGD/colonoscopy for now - Notify GI of active bleeding - Stools (+) for c-diff, cont. Vancomycin - Cont. Flagyl - Monitor HH, transfuse as needed - Supportive care Patient seen and examined by Dr. Perez and myself and this note is written on his behalf. (Ana Maria Burrell) Physician Comments Patient seen and examined Agree with above Continue with current supportive care Monitor labs (Emile Perez MD) Ana Maria Burrell Apr 25, 2017 10:57 Emile Perez MD Apr 25, 2017 20:45
[2017-04-25] MEDS ORDERED: GLUCAGON 1 MG/ML VIAL OTHER PRN (13:15)
[2017-04-25] MEDS ORDERED: DEXTROSE 50% IN WATER 50 ML VIAL(D50) IV PRN (13:15)
[2017-04-25] MEDS: INSULIN NovoLIN REGULAR SUPPLEMENTAL SCALE SQ SCH ×3 (14:00→20:32)
[2017-04-26] VITALS (17 sets, daily range): BP systolic 135–169; BP diastolic 64–73; PULSE 75–82; RESP 13–19; O2SAT 97–100
[2017-04-26] MEDS: INSULIN NovoLIN REGULAR SUPPLEMENTAL SCALE SQ SCH ×6 (02:00→22:00)
[2017-04-26] MEDS: CHLORHEXIDINE GLUCONATE 2 % 1 PACK (2 CLOTHS) TOP SCH (04:00)
[2017-04-26] MEDS: VANCOMYCIN 500 MG VIAL (FOR ORAL USE ONLY) PO SCH ×4 (06:07→17:12)
[2017-04-26] MEDS: PHENYTOIN INJ 100 MG/2 ML VIAL IV SCH ×3 (06:07→19:55)
[2017-04-26] MEDS: metroNIDAZOLE 500 MG TAB PO SCH ×3 (06:07→22:21)
[2017-04-26] MEDS: LEVOTHYROXINE SODIUM 50 MCG TAB PO SCH (06:07)
--- NOTE | 2017-04-26 07:09 | HHI.CCPN ---
Subjective Remarks/Hospital Course The patient is a 76-year-old group home resident with a past medical history of hypothyroidism, hypertension, diabetes mellitus, dementia, seizure disorder, atrial fibrillation on Pradaxa who presented to the [facility] Emergency Department for confusion and altered mental status. The patient was also found hypothermic with a temperature of 88.9 rectally. His laboratory data showed acute kidney injury with creatinine level 1.37 and hyperkalemia with a potassium level 6.0. His lactic acid level measured at 0.8. In addition, he was found to have elevated liver enzymes with AST 177, ALT 168 and total bilirubin less than 0.1. Due to altered mental status, the patient was intubated with etomidate, vecuronium and placed on full mechanical ventilation. CT scan of the brain obtained in the emergency department showed slight atrophic and small vessel ischemic changes without any evidence for acute hemorrhage or mass effect. Chest x-ray post intubation showed right upper lobe and left lower lobe densities and adequate placement of the ET tube. In the emergency room, the patient was given approximately 1.5 liters of crystalloids in addition to vancomycin and Zosyn for possible aspiration pneumonia. Other significant labs showed a TSH of 11.0 and a random cortisol level of 9.7. He was also be given Decadron 10 mg IV push. ABG post-intubation showed a pH of 7.43, CO2 38, pAO2 186, bicarb 25, saturation 98% on assist control ventilation with a rate of 16, tidal volume 500, PEEP of 5 and FIO2 of 50%. When seen in the emergency room, he was sedated with Versed. 04/18 Patient is intubated and sedated with Versed 5mg started on Levophed 4 mics overnight. Hgb 6.8 this morning. 04/19 Patient remains intubated with versed. Off Levophed. s/p transfusion 1unit PRBC yesterday. 04/20 Patient is off Levophed,on Versed 2mg/hr. Tmax 100.4 04/21: off pressors. remains encephalopathic. going for MRA/MRV. plan for LP after if negative. hgb 7 this morning. 04/22: no meaningful change. remains encephalopathic. intermittently tracks. LP without overt evidence of bacterial infection. will need to start thinking about trach if the family continues to want to be aggressive. 04/23 Patient had malfunction ETT last night and was reintubated. Afebrile. 04/24 No events overnight. Sedated with Fentanyl and intubated. Afebrile. 04/25 Patient was extubated last night on 2L oxygen with good sats. 04/26 No events overnight- on 2L oxygen with good sats. Afebrile. More awake today. Objective Vital Signs Date Time Temp Pulse Resp B/P Pulse Ox O2 Delivery O2 Flow Rate FiO2 04/26/17 06:00 82 04/26/17 04:00 98.4 13 154/68 99 04/25/17 19:45 Nasal Cannula 2.00 04/24/17 20:00 35 Intake and Output 04/25/17 04/25/17 04/26/17 08:00 16:00 00:00 Intake Total 161 ml 138 ml 489 ml Output Total 450 ml 900 ml 650 ml Balance -289 ml -762 ml -161 ml Result Diagram: 04/25/17 0820 04/25/17 0411 Other Results Laboratory Tests Test 04/25/17 08:20 White Blood Count 14.6 TH/MM3 Red Blood Count 2.33 MIL/MM3 Hemoglobin 7.3 GM/DL Hematocrit 21.7 % Mean Corpuscular Volume 93.3 FL Mean Corpuscular Hemoglobin 31.6 PG Mean Corpuscular Hemoglobin 33.9 % Concent Red Cell Distribution Width 17.4 % Platelet Count 181 TH/MM3 Mean Platelet Volume 7.8 FL Neutrophils (%) (Auto) 88.4 % Lymphocytes (%) (Auto) 7.6 % Monocytes (%) (Auto) 3.9 % Eosinophils (%) (Auto) 0.1 % Basophils (%) (Auto) 0.0 % Neutrophils # (Auto) 12.9 TH/MM3 Lymphocytes # (Auto) 1.1 TH/MM3 Monocytes # (Auto) 0.6 TH/MM3 Eosinophils # (Auto) 0.0 TH/MM3 Basophils # (Auto) 0.0 TH/MM3 CBC Comment DIFF FINAL Differential Comment Imaging Last Impressions Chest X-Ray 04/23/17 0000 Signed Impressions: Service Date/Time: Sunday, April 23, 2017 16:14 - CONCLUSION: 1. ET tube in approximately 4 cm above the clair. 2. Mild increased atelectasis in the right midlung zone. Binu Reyes MD Head/Brain Mag Res Venography 04/21/17 0000 Signed Impressions: Service Date/Time: Friday, April 21, 2017 14:09 - CONCLUSION: Negative Boubacar Pearl MD Head Magnetic Resonance Angiography 04/21/17 Signed Impressions: Service Date/Time: Friday, April 21, 2017 14:09 - CONCLUSION: Normal examination. Boubacar Pearl MD Brain MRI 04/20/17 Signed Impressions: Service Date/Time: Thursday, April 20, 2017 14:14 - CONCLUSION: Symmetric bilateral frontal and parietal high convexity cortical edema. Unusual appearance in which venous infarction and encephalitis should be considered among the differential possibilities. Boubacar Pearl MD Chest CT 04/19/17 Signed Impressions: Service Date/Time: Wednesday, April 19, 2017 17:19 - CONCLUSION: 1. Posterior bibasilar patchy opacities consistent with atelectasis and/or mild infiltrates. Clinical correlation is recommended. 2. Tiny bilateral pleural effusions. 3. Cardiomegaly and coronary artery calcifications. 4. Degenerative changes and scoliosis of the thoracic spine. Rolando Rowe MD Abdomen/Pelvis CT 04/19/17 0000 Signed Impressions: Service Date/Time: Wednesday, April 19, 2017 17:16 - CONCLUSION: 1. Tiny bilateral pleural effusions with adjacent patchy infiltrates consistent with atelectasis and/or pneumonia. Clinical correlation is recommended. 2. No acute intraabdominal process. 3. Cardiomegaly and coronary artery calcifications. 4. Degenerative changes and scoliosis of the thoracolumbar spine. Rolando Rowe MD Head CT 04/17/17 1212 Signed Impressions: Service Date/Time: Monday, April 17, 2017 14:38 - CONCLUSION: Slight atrophic and small vessel ischemic changes without any evidence for acute hemorrhage or mass effect. Omer Urena MD Abdomen Ultrasound 04/17/17 0000 Signed Impressions: Service Date/Time: Monday, April 17, 2017 15:56 - CONCLUSION: 1. Nonvisualization of the common bile duct, pancreas and spleen. 2. Simple cyst left kidney. Dariusz Louis MD Objective Remarks GENERAL: Patient is 76 yo lying in bed in no acute resp distress SKIN: Warm and dry. HEAD: Normocephalic. EYES: No scleral icterus. No injection or drainage. NECK: trachea midline. No JVD CARDIOVASCULAR: Regular rate and rhythm. RESPIRATORY: Breath sounds equal bilaterally. No accessory muscle use. GASTROINTESTINAL: Abdomen soft, non-tender, nondistended. MUSCULOSKELETAL: No cyanosis, or edema. Neuro: Able to open eyes, A/P Assessment and Plan 1. VDRF - Extubated 04/24 2. Aspiration pneumonia. 3. Acute kidney injury. 4. s/p Hyperkalemia. 5. Elevated liver enzymes. 6. History of atrial fibrillation on Pradaxa. 7. Diabetes mellitus. 8. Hypertension. 9. Anemia. 10. Hypothyroidism. 11. History of dementia and seizure disorder. 12. Positive C-diff. Plan: Neuro: Monitor neuro status and avoid sedatives, MRA brain, and MRV brain negative. LP done 04/21- clear CSF, elevated glc and protein CT brain in the ER showed no evidence of any acute hemorrhage or mass effect. Dilantin level: 18.1 04/23, on Dilantin 100mg Q8 EEG 04/19- mod- severe encephalopathy- Neuro is following Pulm: Continue with oxygen and maintain sats above 92%. Bronchodilators, aspiration precautions CT chest: Posterior bibasilar patchy opacities consistent with atelectasis and/or mild infiltrates. CV: Monitor HR and BP keep MAP>65mmHg Lactic acid level measured at 0.8. On stress dose steroids- HC 100mg IV Q8 : Monitor renal function, I/O's and avoid nephrotoxins. GI: Monitor LFT's ( now within normal), Hepatitis profile negative NPO per speech On Glucerna 1.5 currently @35ml/hr advance to goal rate 45ml/hr US abdomen: Nonvisualization of the common bile duct, pancreas and spleen. Simple cyst left kidney Normal liver, no gallstones. 04/19 CT abdomen/pelvis: No acute abd process. on Protonix 40mg IV daily for GI prophylaxis. GI is following for anemia- no intervention at this time. ID: Given Vancomycin and Zosyn in ED. ID is following. ID: Dr. Kumar following. On (Flagyl, PO Vanco) HSV PCR is negative, follow up on CSF viral panel. Endo: SSI with Accu-Chek q. 4 hours for glycemic control. On Synthroid 50 mcg daily. 7/22 TSH level: 11.0. FT4:0.69(L), FT3 level: 1.67(L) 04/21: TSH: 3.2, FT4: 0.62, FT3:0.69 Random cortisol level measured 9.7. On Sterids- HC 100mg IV Q8 Heme: Monitor CBC s/p transfusion 1unit PRBC on 04/18 DVT prophylaxis with SCDs, heparin SQ on hold given anemia requiring blood transfusion GI prophylaxis- On Protonix 40mg IV BID Lines: peripheral IV's. Follow up on labs today Palliative care is following Level 3 Jennifer Restrepo MD Apr 26, 2017 07:09
[2017-04-26 07:50] LABS: VZV PCR RESULT <500 (())
[2017-04-26] MEDS: HYDROCORTISONE SOD SUCCINATE 100 MG VIAL IV PUSH SCH ×3 (09:45→17:12)
[2017-04-26] MEDS: LACTULOSE SYRUP 20 GM/30 ML CUP PO SCH ×2 (09:46→19:55)
[2017-04-26] MEDS: PANTOPRAZOLE SODIUM 40 MG VIAL IV SCH ×2 (09:46→19:54)
[2017-04-26] MEDS: DOCUSATE SODIUM 50 MG/SENNA 8.6 MG TAB PO SCH ×2 (09:47→19:55)
[2017-04-26 10:15] LABS: POTASSIUM 3.9 MEQ/L (3.5-5.1)
--- NOTE | 2017-04-26 16:09 | HHI.GIFU ---
Subjective Remarks Pt resting in bed, in no apparent distress. Objective Vitals I&O Vital Signs Date Time Temp Pulse Resp B/P Pulse Ox O2 Delivery O2 Flow Rate FiO2 04/26/17 14:00 80 04/26/17 12:00 98.2 77 16 165/70 97 04/26/17 12:00 77 04/26/17 11:00 98.2 79 19 150/66 04/26/17 10:00 76 04/26/17 10:00 98.2 76 19 169/73 04/26/17 09:00 98.1 76 14 156/68 04/26/17 08:00 98.1 76 16 146/65 100 04/26/17 08:00 82 04/26/17 07:00 98.4 79 14 159/70 100 04/26/17 06:00 82 04/26/17 04:00 98.4 79 13 154/68 99 04/26/17 04:00 79 04/26/17 02:00 77 04/26/17 00:00 97.9 75 14 162/70 100 04/26/17 00:00 75 04/25/17 22:00 75 04/25/17 20:00 98.1 79 16 154/65 99 04/25/17 20:00 79 04/25/17 19:45 98 Nasal Cannula 2.00 04/25/17 18:00 80 I/O 04/25/17 04/25/17 04/25/17 04/26/17 04/26/17 04/26/17 06:59 14:59 22:59 06:59 14:59 22:59 Intake Total 161 ml 138 ml 489 ml 394 ml 329 ml Output Total 450 ml 900 ml 650 ml 350 ml 750 ml Balance -289 ml -762 ml -161 ml 44 ml -421 ml Intake Oral 50 ml IV Total 111 ml 138 ml 71 ml 8 ml Tube Feeding 0 ml 298 ml 236 ml 329 ml Other 120 ml 150 ml Output Urine Total 350 ml 250 ml 200 ml 250 ml 450 ml Stool Total 100 ml 650 ml 450 ml 100 ml 300 ml Laboratory Laboratory Tests Test 04/26/17 08:43 Sodium Level 145 Potassium Level 3.9 Chloride Level 111 Carbon Dioxide Level 24.0 Anion Gap 10 Blood Urea Nitrogen 22 Creatinine 0.85 Estimat Glomerular Filtration 106 Rate Random Glucose 115 Calcium Level 8.2 Date/Time Procedure Status Source Growth 04/21/17 20:40 Gram Stain - Final Complete Cerebral Spinal Fluid Lumbar Puncture 04/21/17 20:40 CSF Culture - Final Complete Cerebral Spinal Fluid Lumbar Puncture NO GROWTH IN 72 HOURS 04/21/17 20:40 Fungal Smear - Final Resulted Cerebral Spinal Fluid Lumbar Puncture NO FUNGAL ELEMENTS SEEN. 04/21/17 20:40 Fungal Culture Resulted Cerebral Spinal Fluid Lumbar Puncture Pending 04/21/17 20:40 Acid Fast Stain - Final Resulted Cerebral Spinal Fluid Lumbar Puncture NO ACID FAST BACILLI SEEN 04/21/17 20:40 Mycobacterial Culture Resulted Cerebral Spinal Fluid Lumbar Puncture Pending Imaging Last Impressions Chest X-Ray 04/23/17 0000 Signed Impressions: Service Date/Time: Sunday, April 23, 2017 16:14 - CONCLUSION: 1. ET tube in approximately 4 cm above the clair. 2. Mild increased atelectasis in the right midlung zone. Binu Reyes MD Head/Brain Mag Res Venography 04/21/17 0000 Signed Impressions: Service Date/Time: Friday, April 21, 2017 14:09 - CONCLUSION: Negative Boubacar Pearl MD Head Magnetic Resonance Angiography 04/21/17 0000 Signed Impressions: Service Date/Time: Friday, April 21, 2017 14:09 - CONCLUSION: Normal examination. Boubacar Pearl MD Brain MRI 04/20/17 0000 Signed Impressions: Service Date/Time: Thursday, April 20, 2017 14:14 - CONCLUSION: Symmetric bilateral frontal and parietal high convexity cortical edema. Unusual appearance in which venous infarction and encephalitis should be considered among the differential possibilities. Boubacar Pearl MD Chest CT 04/19/17 0000 Signed Impressions: Service Date/Time: Wednesday, April 19, 2017 17:19 - CONCLUSION: 1. Posterior bibasilar patchy opacities consistent with atelectasis and/or mild infiltrates. Clinical correlation is recommended. 2. Tiny bilateral pleural effusions. 3. Cardiomegaly and coronary artery calcifications. 4. Degenerative changes and scoliosis of the thoracic spine. Rolando Rowe MD Abdomen/Pelvis CT 04/19/17 0000 Signed Impressions: Service Date/Time: Wednesday, April 19, 2017 17:16 - CONCLUSION: 1. Tiny bilateral pleural effusions with adjacent patchy infiltrates consistent with atelectasis and/or pneumonia. Clinical correlation is recommended. 2. No acute intraabdominal process. 3. Cardiomegaly and coronary artery calcifications. 4. Degenerative changes and scoliosis of the thoracolumbar spine. Rolando Rowe MD Head CT 04/17/17 1212 Signed Impressions: Service Date/Time: Monday, April 17, 2017 14:38 - CONCLUSION: Slight atrophic and small vessel ischemic changes without any evidence for acute hemorrhage or mass effect. Omer Urena MD Abdomen Ultrasound 04/17/17 0000 Signed Impressions: Service Date/Time: Monday, April 17, 2017 15:56 - CONCLUSION: 1. Nonvisualization of the common bile duct, pancreas and spleen. 2. Simple cyst left kidney. Dariusz Louis MD Physical Exam HEENT: Normocephalic; atraumatic; no jaundice. CHEST: CTA CARDIAC: RRR with no murmur gallop or rubs. ABDOMEN: Soft, nondistended, nontender; no hepatosplenomegaly; bowel sounds are present in all four quadrants. EXTREMITIES: No clubbing, cyanosis, or edema. SKIN: Normal; no rash; no jaundice. TIMBER INSPECTOR: Awake and alert but not cooperative with exam. Assessment and Plan Plan - Acute on chronic anemia- likely multi factorial, this could be chronic dz related, but GI bleed couldn't be excluded. No obvious bleeding reported, heparin on hold. No documented EGD/colonoscopy, CT as below. today's labs pending - C-diff- Stools came (+) for C-diff and Epid 027, he is on Vancomycin, Flagyl has been ordered by [facility] ID following - Elevated LFTs- RESOLVED- likely ischemic effect, he did have episodes of hypotension. hepatitis panel (-), will monitor for now. CT of abd/pelvis on (04/19/17) 1. Tiny bilateral pleural effusions with adjacent patchy infiltrates consistent with atelectasis and/or pneumonia. Clinical correlation is recommended. 2. No acute intraabdominal process. 3. Cardiomegaly and coronary artery calcifications. 4. Degenerative changes and scoliosis of the thoracolumbar spine. US on (04/17/17)---> Nonvisualization of the common bile duct, pancreas and spleen. 2. Simple cyst left kidney. - AMS- blood culture, no growth in 5 days, urine cx negative. LP done 04/21- clear CSF, elevated glc and protein. EEG 04/19- mod- severe encephalopathy- neuro on the case - Acute respiratory failure- intubated by [facility] - Acute kidney injury - A-fib ( on Pradaxa, this is on hold now), dementia, DM, HTN per attending - Palliative care on the case, family wish for aggressive tx Plan: - TF per attending - No obvious bleeding, will hold off on EGD/colonoscopy for now - Notify GI of active bleeding - cont. Vancomycin - Cont. Flagyl - Monitor HH, transfuse as needed - Supportive care Patient seen and examined by Dr. Arriaza and myself and this note is written on her behalf. Shanique Dow Apr 26, 2017 16:09
--- NOTE | 2017-04-26 16:28 | HHI.HCPN ---
Reason for visit a. To assist with evaluation and management of symptoms including: Shortness of breath and debility. b. To assist medical decision maker(s) with: better understanding of current medical conditions; weighing benefits/burdens of medical treatment options; making medical treatment decisions. . Subjective/Interval History Mr. Rivera is a 76 y/o male known to palliative care with a medical history of dementia, atrial fibrillation on anticoagulation, seizures, hypertension, schizophrenia and chronic kidney disease. Patient presented to ED on 04/17/17 via EMS for evaluation of altered mental status. He was intubated for airway protection and transferred to ICU for further management. Palliative care has been consulted for further clarifications of goals of care given patient's multiple comorbidities and current clinical condition. Patient medically extubated on 04/24/17. He was seen in ICU. Improved neurological status, awake and alert to self. Patient verbal, slurred speech. He was able to tell me his name, confused as to place and situation. Following some simple commands such as "squeeze my hand". Answering "no" when asked about pain or discomfort. Most recent laboratory workup 04/25/17 revealing WBC 14.6, Hgb 7.3, platelet count 181. Most recent chest x-ray 04/23/17 revealing minimal parenchymal changes to the left lung base. Speech therapy following, patient was placed on pured diet and honey thickened liquids. Currently receiving tube feeds via NG tube. Patient afebrile, stable hemodynamically. Telephone conversation with patient's son Chad Rivera. Medical update provided. Reviewed improvement in patient's neurological status/alertness. Reviewed dysphagia and concerns of long-term feeding tube/PEG. Discussed risks , benefits and limitations of PEG tube given patient's multiple comorbidities, dementia, profound physical deconditioning and advanced age. Son tells me that PEG tube has been declined in the past given the above, high risk that patient may pull it given his baseline dementia. Goal of therapy is to allow a few more days for clinical improvement, family wishing for patient to return to his long-term facility. Case discussed with bedside RN Chrystal. . Family/friend interactions See interval note. . Advance Directives Durable Power of Boot Maker: Copy in medical record Advance Directive Specifics Date completed: 05/04/2014 -- THIS IS A [place] FINANCIAL POWER OF PIN GAME MACHINE INSPECTOR DOCUMENT. IT DOES NOT REFER TO HEALTH CARE DECISION MAKING. Financial decision making is given to Chad Rivera. Health Care Surrogate(s): During previous hospitalization, all available children were previously contacted by palliative care. All have deferred health care decision making to two of the children Chad and Suzi as co-HCP. * Chad Rivera (son) who lives in [place] [phone] * Suzi Ortiz (daughter) who lives in [facility] [phone] . Documented care wishes: No living will completed. During the previous hospitalization, the family continued to want aggressive care, including intubation for some number of days. Significant change in goals: Continue current conservative management short of no cardiac code. . Objective Vital Signs Date Time Temp Pulse Resp B/P Pulse Ox O2 Delivery O2 Flow Rate FiO2 04/26/17 14:00 80 04/26/17 12:00 98.2 77 16 165/70 97 04/26/17 12:00 77 04/26/17 11:00 98.2 79 19 150/66 04/26/17 10:00 76 04/26/17 10:00 98.2 76 19 169/73 04/26/17 09:00 98.1 76 14 156/68 04/26/17 08:00 98.1 76 16 146/65 100 04/26/17 08:00 82 04/26/17 07:00 98.4 79 14 159/70 100 04/26/17 06:00 82 04/26/17 04:00 98.4 79 13 154/68 99 04/26/17 04:00 79 04/26/17 02:00 77 04/26/17 00:00 97.9 75 14 162/70 100 04/26/17 00:00 75 04/25/17 22:00 75 04/25/17 20:00 98.1 79 16 154/65 99 04/25/17 20:00 79 04/25/17 19:45 98 Nasal Cannula 2.00 04/25/17 18:00 80 Intake & Output 04/26/17 04/26/17 06:59 18:59 Intake Total 883 ml 329 ml Output Total 1000 ml 750 ml Balance -117 ml -421 ml IV Total 79 ml Tube Feeding 534 ml 329 ml Other 270 ml Output Urine Total 450 ml 450 ml Stool Total 550 ml 300 ml Physical Exam CONSTITUTIONAL/GENERAL: This is an elderly patient in no apparent distress. TUBES/LINES/DRAINS: central line to left chest, Naik catheter, rectal tube, SCDs. SKIN: No jaundice, rashes, or lesions. Ecchymoses on upper extremities. No wounds seen anteriorly. Not diaphoretic. HEAD: Atraumatic. Normocephalic. EYES: Right eye with conjunctival hemorrhage. Bilateral arcus senilis. No scleral icterus. ENT: Hearing appears normal. Nose without bleeding or purulent drainage. Moist oral mucosa. NECK: Trachea midline. Supple. CARDIOVASCULAR: Regular rate and rhythm. Peripheral pulses symmetric. RESPIRATORY/CHEST: Symmetric, unlabored respirations. Clear, diminished breath sounds. GASTROINTESTINAL: Abdomen large, round, soft. No guarding. Bowel sounds present. GENITOURINARY: Without palpable bladder distension. Naik catheter in place. MUSCULOSKELETAL: Extremities without clubbing, cyanosis. Edema to bilateral hands. NEUROLOGICAL: Alert and oriented times self. Verbal but not always able to communicate needs secondary to confusion. Slurred speech. Following some simple commands. PSYCHIATRIC: Calm. Diagnostic Tests Laboratory Laboratory Tests Test 04/23/17 04/24/17 04/24/17 04/25/17 19:57 03:30 15:01 04:11 Potassium Level 4.1 MEQ/L 3.6 MEQ/L 3.5 MEQ/L (3.5-5.1) (3.5-5.1) (3.5-5.1) White Blood Count 20.0 TH/MM3 22.8 TH/MM3 (4.0-11.0) (4.0-11.0) Red Blood Count 2.32 MIL/MM3 2.46 MIL/MM3 (4.50-5.90) (4.50-5.90) Hemoglobin 7.2 GM/DL 7.5 GM/DL (13.0-17.0) (13.0-17.0) Hematocrit 21.5 % 23.1 % (39.0-51.0) (39.0-51.0) Mean Corpuscular Volume 92.7 FL 94.0 FL (80.0-100.0) (80.0-100.0) Mean Corpuscular Hemoglobin 31.1 PG 30.6 PG (27.0-34.0) (27.0-34.0) Mean Corpuscular Hemoglobin 33.5 % 32.6 % Concent (32.0-36.0) (32.0-36.0) Red Cell Distribution Width 17.7 % 17.5 % (11.6-17.2) (11.6-17.2) Platelet Count 148 TH/MM3 200 TH/MM3 (150-450) (150-450) Mean Platelet Volume 8.2 FL 7.9 FL (7.0-11.0) (7.0-11.0) Neutrophils (%) (Auto) 90.6 % 89.6 % (16.0-70.0) (16.0-70.0) Lymphocytes (%) (Auto) 4.3 % 6.6 % (9.0-44.0) (9.0-44.0) Monocytes (%) (Auto) 4.7 % (0.0-8.0) 3.7 % (0.0-8.0) Eosinophils (%) (Auto) 0.3 % (0.0-4.0) 0.0 % (0.0-4.0) Basophils (%) (Auto) 0.1 % (0.0-2.0) 0.1 % (0.0-2.0) Neutrophils # (Auto) 18.1 TH/MM3 20.4 TH/MM3 (1.8-7.7) (1.8-7.7) Lymphocytes # (Auto) 0.9 TH/MM3 1.5 TH/MM3 (1.0-4.8) (1.0-4.8) Monocytes # (Auto) 0.9 TH/MM3 0.8 TH/MM3 (0-0.9) (0-0.9) Eosinophils # (Auto) 0.1 TH/MM3 0.0 TH/MM3 (0-0.4) (0-0.4) Basophils # (Auto) 0.0 TH/MM3 0.0 TH/MM3 (0-0.2) (0-0.2) CBC Comment DIFF FINAL DIFF FINAL Differential Comment Sodium Level 145 MEQ/L 144 MEQ/L (136-145) (136-145) Chloride Level 111 MEQ/L 111 MEQ/L (98-107) (98-107) Carbon Dioxide Level 26.0 MEQ/L 24.7 MEQ/L (21.0-32.0) (21.0-32.0) Anion Gap 8 MEQ/L (5-15) 8 MEQ/L (5-15) Blood Urea Nitrogen 24 MG/DL (7-18) 21 MG/DL (7-18) Creatinine 1.01 MG/DL 0.90 MG/DL (0.60-1.30) (0.60-1.30) Estimat Glomerular Filtration 87 ML/MIN (>89) 99 ML/MIN (>89) Rate Random Glucose 109 MG/DL 120 MG/DL (74-106) (74-106) Calcium Level 8.0 MG/DL 8.0 MG/DL (8.5-10.1) (8.5-10.1) Phosphorus Level 2.6 MG/DL (2.5-4.9) Magnesium Level 2.2 MG/DL (1.5-2.5) Total Bilirubin 0.2 MG/DL (0.2-1.0) Aspartate Amino Transf 36 U/L (15-37) (AST/SGOT) Alanine Aminotransferase 64 U/L (12-78) (ALT/SGPT) Alkaline Phosphatase 117 U/L (45-117) Total Protein 5.7 GM/DL (6.4-8.2) Albumin 2.0 GM/DL (3.4-5.0) HIV (1&2) Antibody NEGATIVE (NEGATIVE) Test 04/25/17 04/26/17 08:20 08:43 White Blood Count 14.6 TH/MM3 (4.0-11.0) Red Blood Count 2.33 MIL/MM3 (4.50-5.90) Hemoglobin 7.3 GM/DL (13.0-17.0) Hematocrit 21.7 % (39.0-51.0) Mean Corpuscular Volume 93.3 FL (80.0-100.0) Mean Corpuscular Hemoglobin 31.6 PG (27.0-34.0) Mean Corpuscular Hemoglobin 33.9 % Concent (32.0-36.0) Red Cell Distribution Width 17.4 % (11.6-17.2) Platelet Count 181 TH/MM3 (150-450) Mean Platelet Volume 7.8 FL (7.0-11.0) Neutrophils (%) (Auto) 88.4 % (16.0-70.0) Lymphocytes (%) (Auto) 7.6 % (9.0-44.0) Monocytes (%) (Auto) 3.9 % (0.0-8.0) Eosinophils (%) (Auto) 0.1 % (0.0-4.0) Basophils (%) (Auto) 0.0 % (0.0-2.0) Neutrophils # (Auto) 12.9 TH/MM3 (1.8-7.7) Lymphocytes # (Auto) 1.1 TH/MM3 (1.0-4.8) Monocytes # (Auto) 0.6 TH/MM3 (0-0.9) Eosinophils # (Auto) 0.0 TH/MM3 (0-0.4) Basophils # (Auto) 0.0 TH/MM3 (0-0.2) CBC Comment DIFF FINAL Differential Comment Sodium Level 145 MEQ/L (136-145) Potassium Level 3.9 MEQ/L (3.5-5.1) Chloride Level 111 MEQ/L (98-107) Carbon Dioxide Level 24.0 MEQ/L (21.0-32.0) Anion Gap 10 MEQ/L (5-15) Blood Urea Nitrogen 22 MG/DL (7-18) Creatinine 0.85 MG/DL (0.60-1.30) Estimat Glomerular Filtration 106 ML/MIN Rate (>89) Random Glucose 115 MG/DL (74-106) Calcium Level 8.2 MG/DL (8.5-10.1) Result Diagram: 04/25/17 0820 04/26/17 0843 Procedures * 04/24/17 -extubation * 04/23/17 -reintubation due to malfunctioning ETT * 04/21/17 -lumbar puncture * 04/18/17 -central line placement * 04/17/17 -endotracheal intubation . Assessment and Plan Disease Oriented Problem List: (1) Acute respiratory failure (2) Encephalopathy (3) Aspiration pneumonia (4) Seizures (5) Acute kidney injury (6) Hypothermia (7) Dementia with behavioral disturbance Symptom Scale: (1) Shortness of breath 0-10 Scale: Unable to quantify Comment: Pneumonia, ventilator dependent respiratory failure. Medically extubated. (2) Debility 0-10 Scale: Unable to quantify Pertinent Non-Medical Issues Psychosocial: The patient was born and raised in [facility]. He was for about 20 years but for many years. He had 4 sons and 2 daughters, one daughter is . Spiritual: No yazidism affiliation. Legal: Power of civil litigation attorney completed. Ethical issues impacting care: Patient unable to participate in medical decision -making, not capacitated secondary to dementia. HCP are his children. . Important Contacts Son Chad Rivera Jr who resides in [place] Daughter Suzi Ortiz who resides in the [facility] . . Prognosis Mr. Rivera is a 76 y/o male known to palliative care with a medical history of dementia, atrial fibrillation on anticoagulation, seizures, hypertension, schizophrenia and chronic kidney disease. Clinical course complicated by ventilator dependent respiratory failure, aspiration pneumonia, hypothermia and acute on chronic kidney failure. Patient at a very high risk for further complications, continue decline and . Prognosis is guarded given multiple chronic comorbidities, acute events, physical deconditioning and advanced age. . Code Status: Alternative Code Plan * CODE STATUS: Alt code/intubation only. * HEALTHCARE DECISION-MAKING: Because of the patient's dementia, intubation/ mech vent, he is incapacitated to make his own health care decisions and is not expected to regain capacity. In the absence of advance directives and as per [place] law, proxy decision-making falls to the majority patient's children. His son Chad and daughter Suzi have been appointed during previous acute hospitalization by the other children as co-healthcare proxy decision making ( other children declining to participate in medical decision-making). . * GOALS OF CARE: 04/26/17 -Family electing to continue conservative management short of NO cardiac code. Family has declined PEG tube placement during past acute admissions. Family wishing to allow time for medical improvement, goal is to return patient to long-term facility. * SYMPTOMS: = Shortness of breath, secondary to ventilator dependent respiratory failure, aspiration pneumonia. Improving, medically extubated on . Tolerating O2 via nasal cannula. = Debility, patient resident of long- term facility. Requiring assistance with all ADLs. Likely to continue to worsen. * Case discussed with bedside RN Chrystal. * Palliative care contact information has been provided to patient's family. * Palliative care will continue to follow-up for further clarifications of goals of care as patient's clinical course continues to evolve. . Time Spent Total Floor Time (mins): 33 (Total time to include review medical records, physical exam, telephone conversation with patient's son for goals of care and case discussion with bedside RN Chrystal.) >50% Counseling/Coord of Care: Yes Attestation To help prompt me to consider important information that might be impacting today's encounter and assessment, information from prior notes written by myself or my colleagues may have been "brought forward" into today's note. My signature on this note, however, is an attestation that I personally performed the exam, history, and/or decision-making noted today, and, unless otherwise indicated, the interactions with patient, family, and staff as well as the review of records all occurred today. I also attest that the listed assessment and stated plan reflect my best clinical judgment today based on the combination of historical information, prior notes, and today's exam/ interactions. When time spent is documented, it refers only to time spent today by the signer, or if indicated, combined time spent today by collaborating physician/nurse practitioner. Vida Morales Apr 26, 2017 16:28
[2017-04-26 19:50] LABS: CALIFORNIA ENCEPH AB IGG <1:4 (()); CALIFORNIA ENCEPH AB IGM <1:4 (()); EAST EQUINE ENCEPH AB IGG <1:4 (()); EAST EQUINE ENCEPH AB IGM <1:4 (()); ST LOUIS ENCEPH AB IGG <1:4 (()); ST LOUIS ENCEPH AB IGM <1:4 (())
[2017-04-27] VITALS (20 sets, daily range): BP systolic 118–160; BP diastolic 59–104; PULSE 75–83; RESP 13–17; O2SAT 98–100
[2017-04-27] MEDS: HYDROCORTISONE SOD SUCCINATE 100 MG VIAL IV PUSH SCH ×4 (00:14→21:04)
[2017-04-27] MEDS: VANCOMYCIN 500 MG VIAL (FOR ORAL USE ONLY) PO SCH ×4 (00:14→17:22)
[2017-04-27] MEDS: INSULIN NovoLIN REGULAR SUPPLEMENTAL SCALE SQ SCH ×2 (01:24→05:42)
[2017-04-27 03:53] LABS: AUTOMATED NEUTROPHIL # 12.8 TH/MM3 (1.8-7.7); BASOPHIL % 0.2 % (0.0-2.0); EOSINOPHIL % 0.2 % (0.0-4.0); HEMO FLAGS DIFF FINAL; LYMPH % 8.2 % (9.0-44.0); LYMPHOCYTE # 1.2 TH/MM3 (1.0-4.8); MEAN CELL VOLUME 93.9 FL (80.0-100.0); MEAN CORPUSCULAR HEMOGLOBIN 32.2 PG (27.0-34.0); MEAN CORPUSCULAR HGB CONC 34.3 % (32.0-36.0); MONO % 4.9 % (0.0-8.0); NEUT % 86.5 % (16.0-70.0); PLATELET COUNT 357 TH/MM3 (150-450); RED BLOOD COUNT 2.55 MIL/MM3 (4.50-5.90); RED CELL DISTRIBUTION WIDTH 16.9 % (11.6-17.2); WHITE BLOOD COUNT 14.7 TH/MM3 (4.0-11.0)
[2017-04-27] MEDS: CHLORHEXIDINE GLUCONATE 2 % 1 PACK (2 CLOTHS) TOP SCH (04:00)
[2017-04-27] MEDS: metroNIDAZOLE 500 MG TAB PO SCH ×3 (05:39→21:04)
[2017-04-27] MEDS: LEVOTHYROXINE SODIUM 50 MCG TAB PO SCH (05:39)
[2017-04-27] MEDS: PHENYTOIN INJ 100 MG/2 ML VIAL IV SCH ×3 (05:39→21:05)
[2017-04-27 05:43] LABS: AUTOMATED NEUTROPHIL # 11.9 TH/MM3 (1.8-7.7); BASOPHIL % 0.2 % (0.0-2.0); EOSINOPHIL % 0.2 % (0.0-4.0); HEMATOCRIT 22.5 % (39.0-51.0); HEMO FLAGS DIFF FINAL; LYMPH % 6.2 % (9.0-44.0); LYMPHOCYTE # 0.8 TH/MM3 (1.0-4.8); MEAN CELL VOLUME 94.4 FL (80.0-100.0); MEAN CORPUSCULAR HGB CONC 32.8 % (32.0-36.0); MONO % 4.6 % (0.0-8.0); NEUT % 88.8 % (16.0-70.0); PLATELET COUNT 366 TH/MM3 (150-450); RED BLOOD COUNT 2.39 MIL/MM3 (4.50-5.90); RED CELL DISTRIBUTION WIDTH 17.2 % (11.6-17.2); WHITE BLOOD COUNT 13.4 TH/MM3 (4.0-11.0)
[2017-04-27 05:47] LABS: BICARBONATE 27.9 MEQ/L (21.0-32.0); POTASSIUM 3.6 MEQ/L (3.5-5.1)
[2017-04-27] MEDS: PANTOPRAZOLE SODIUM 40 MG VIAL IV SCH ×2 (08:19→21:03)
[2017-04-27] MEDS: LACTULOSE SYRUP 20 GM/30 ML CUP PO SCH ×2 (09:00→21:04)
[2017-04-27] MEDS: DOCUSATE SODIUM 50 MG/SENNA 8.6 MG TAB PO SCH ×2 (09:00→21:05)
--- NOTE | 2017-04-27 09:12 | HHI.CCPN ---
Subjective Remarks/Hospital Course The patient is a 76-year-old prison resident with a past medical history of hypothyroidism, hypertension, diabetes mellitus, dementia, seizure disorder, atrial fibrillation on Pradaxa who presented to the [facility] Emergency Department for confusion and altered mental status. The patient was also found hypothermic with a temperature of 88.9 rectally. His laboratory data showed acute kidney injury with creatinine level 1.37 and hyperkalemia with a potassium level 6.0. His lactic acid level measured at 0.8. In addition, he was found to have elevated liver enzymes with AST 177, ALT 168 and total bilirubin less than 0.1. Due to altered mental status, the patient was intubated with etomidate, vecuronium and placed on full mechanical ventilation. CT scan of the brain obtained in the emergency department showed slight atrophic and small vessel ischemic changes without any evidence for acute hemorrhage or mass effect. Chest x-ray post intubation showed right upper lobe and left lower lobe densities and adequate placement of the ET tube. In the emergency room, the patient was given approximately 1.5 liters of crystalloids in addition to vancomycin and Zosyn for possible aspiration pneumonia. Other significant labs showed a TSH of 11.0 and a random cortisol level of 9.7. He was also be given Decadron 10 mg IV push. ABG post-intubation showed a pH of 7.43, CO2 38, pAO2 186, bicarb 25, saturation 98% on assist control ventilation with a rate of 16, tidal volume 500, PEEP of 5 and FIO2 of 50%. When seen in the emergency room, he was sedated with Versed. 04/18 Patient is intubated and sedated with Versed 5mg started on Levophed 4 mics overnight. Hgb 6.8 this morning. 04/19 Patient remains intubated with versed. Off Levophed. s/p transfusion 1unit PRBC yesterday. 04/20 Patient is off Levophed,on Versed 2mg/hr. Tmax 100.4 04/21: off pressors. remains encephalopathic. going for MRA/MRV. plan for LP after if negative. hgb 7 this morning. 04/22: no meaningful change. remains encephalopathic. intermittently tracks. LP without overt evidence of bacterial infection. will need to start thinking about trach if the family continues to want to be aggressive. 04/23 Patient had malfunction ETT last night and was reintubated. Afebrile. 04/24 No events overnight. Sedated with Fentanyl and intubated. Afebrile. 04/25 Patient was extubated last night on 2L oxygen with good sats. 04/26 No events overnight- on 2L oxygen with good sats. Afebrile. More awake today. 04/27 No events overnight. Awake, alert tolerating tube feeds. Objective Vital Signs Date Time Temp Pulse Resp B/P Pulse Ox O2 Delivery O2 Flow Rate FiO2 04/27/17 07:07 100 Nasal Cannula 4.00 04/27/17 06:00 80 04/27/17 04:00 99.0 15 154/70 04/24/17 20:00 35 Intake and Output 04/26/17 04/26/17 04/26/17 07:59 15:59 23:59 Intake Total 394 ml 329 ml 338 ml Output Total 350 ml 750 ml 400 ml Balance 44 ml -421 ml -62 ml Result Diagram: 04/27/17 0516 04/27/17 0516 Other Results Laboratory Tests Test 04/27/17 04/27/17 03:19 05:16 White Blood Count 14.7 TH/MM3 13.4 TH/MM3 Red Blood Count 2.55 MIL/MM3 2.39 MIL/MM3 Hemoglobin 8.2 GM/DL 7.4 GM/DL Hematocrit 24.0 % 22.5 % Mean Corpuscular Volume 93.9 FL 94.4 FL Mean Corpuscular Hemoglobin 32.2 PG 31.0 PG Mean Corpuscular Hemoglobin 34.3 % 32.8 % Concent Red Cell Distribution Width 16.9 % 17.2 % Platelet Count 357 TH/MM3 366 TH/MM3 Mean Platelet Volume 7.0 FL 6.5 FL Neutrophils (%) (Auto) 86.5 % 88.8 % Lymphocytes (%) (Auto) 8.2 % 6.2 % Monocytes (%) (Auto) 4.9 % 4.6 % Eosinophils (%) (Auto) 0.2 % 0.2 % Basophils (%) (Auto) 0.2 % 0.2 % Neutrophils # (Auto) 12.8 TH/MM3 11.9 TH/MM3 Lymphocytes # (Auto) 1.2 TH/MM3 0.8 TH/MM3 Monocytes # (Auto) 0.7 TH/MM3 0.6 TH/MM3 Eosinophils # (Auto) 0.0 TH/MM3 0.0 TH/MM3 Basophils # (Auto) 0.0 TH/MM3 0.0 TH/MM3 CBC Comment DIFF FINAL DIFF FINAL Differential Comment Sodium Level 147 MEQ/L Potassium Level 3.6 MEQ/L Chloride Level 112 MEQ/L Carbon Dioxide Level 27.9 MEQ/L Anion Gap 7 MEQ/L Blood Urea Nitrogen 20 MG/DL Creatinine 0.75 MG/DL Estimat Glomerular Filtration 122 ML/MIN Rate Random Glucose 134 MG/DL Calcium Level 7.9 MG/DL Imaging Last Impressions Chest X-Ray 04/23/17 0000 Signed Impressions: Service Date/Time: Sunday, April 23, 2017 16:14 - CONCLUSION: 1. ET tube in approximately 4 cm above the clair. 2. Mild increased atelectasis in the right midlung zone. Binu Reyes MD Head/Brain Mag Res Venography 04/21/17 0000 Signed Impressions: Service Date/Time: Friday, April 21, 2017 14:09 - CONCLUSION: Negative Boubacar Pearl MD Head Magnetic Resonance Angiography 04/21/17 0000 Signed Impressions: Service Date/Time: Friday, April 21, 2017 14:09 - CONCLUSION: Normal examination. Boubacar Pearl MD Brain MRI 04/20/17 0000 Signed Impressions: Service Date/Time: Thursday, April 20, 2017 14:14 - CONCLUSION: Symmetric bilateral frontal and parietal high convexity cortical edema. Unusual appearance in which venous infarction and encephalitis should be considered among the differential possibilities. Boubacar Pearl MD Chest CT 04/19/17 0000 Signed Impressions: Service Date/Time: Wednesday, April 19, 2017 17:19 - CONCLUSION: 1. Posterior bibasilar patchy opacities consistent with atelectasis and/or mild infiltrates. Clinical correlation is recommended. 2. Tiny bilateral pleural effusions. 3. Cardiomegaly and coronary artery calcifications. 4. Degenerative changes and scoliosis of the thoracic spine. Rolando Rowe MD Abdomen/Pelvis CT 04/19/17 0000 Signed Impressions: Service Date/Time: Wednesday, April 19, 2017 17:16 - CONCLUSION: 1. Tiny bilateral pleural effusions with adjacent patchy infiltrates consistent with atelectasis and/or pneumonia. Clinical correlation is recommended. 2. No acute intraabdominal process. 3. Cardiomegaly and coronary artery calcifications. 4. Degenerative changes and scoliosis of the thoracolumbar spine. Rolando Rowe MD Head CT 04/17/17 1212 Signed Impressions: Service Date/Time: Monday, April 17, 2017 14:38 - CONCLUSION: Slight atrophic and small vessel ischemic changes without any evidence for acute hemorrhage or mass effect. Omer Urena MD Abdomen Ultrasound 04/17/17 0000 Signed Impressions: Service Date/Time: Monday, April 17, 2017 15:56 - CONCLUSION: 1. Nonvisualization of the common bile duct, pancreas and spleen. 2. Simple cyst left kidney. Dariusz Louis MD Objective Remarks GENERAL: Patient is 76 yo lying in bed in no acute resp distress SKIN: Warm and dry. HEAD: Normocephalic. EYES: No scleral icterus. No injection or drainage. NECK: trachea midline. No JVD CARDIOVASCULAR: Regular rate and rhythm. RESPIRATORY: Breath sounds equal bilaterally. No accessory muscle use. GASTROINTESTINAL: Abdomen soft, non-tender, nondistended. MUSCULOSKELETAL: No cyanosis, or edema. Neuro: Awake, alert A/P Assessment and Plan 1. VDRF - Extubated 04/24 2. Aspiration pneumonia. 3. Acute kidney injury. 4. s/p Hyperkalemia. 5. Elevated liver enzymes. 6. History of atrial fibrillation on Pradaxa. 7. Diabetes mellitus. 8. Hypertension. 9. Anemia. 10. Hypothyroidism. 11. History of dementia and seizure disorder. 12. Positive C-diff. Plan: Neuro: Monitor neuro status and avoid sedatives, patient is awake and alert MRA brain, and MRV brain negative. LP done 04/21- clear CSF, elevated glc and protein CT brain in the ER showed no evidence of any acute hemorrhage or mass effect. Dilantin level: 18.1 04/23, on Dilantin 100mg Q8 recheck Dilantin level today EEG 04/19- mod- severe encephalopathy- Neuro is following Pulm: Continue with oxygen and maintain sats above 92%. Bronchodilators, aspiration precautions CT chest: Posterior bibasilar patchy opacities consistent with atelectasis and/or mild infiltrates. CV: Place on Lopressor 50mg BID-Monitor HR and BP keep MAP>65mmHg Lactic acid level measured at 0.8. taper steroids-decrease HC 50mg IV Q6 : Monitor renal function, I/O's and avoid nephrotoxins. GI: Monitor LFT's ( now within normal), Hepatitis profile negative NPO per speech On Glucerna 1.5 currently @45ml/hr US abdomen: Nonvisualization of the common bile duct, pancreas and spleen. Simple cyst left kidney Normal liver, no gallstones. 04/19 CT abdomen/pelvis: No acute abd process. on Protonix 40mg IV daily for GI prophylaxis. GI is following for anemia- no intervention at this time. ID: Given Vancomycin and Zosyn in ED. ID is following. ID: Dr. Kumar following. On (Flagyl, PO Vanco) HSV PCR is negative, CSF viral panel negative. Endo: SSI with Accu-Chek q. 4 hours for glycemic control. On Synthroid 50 mcg daily. 04/17 TSH level: 11.0. FT4:0.69(L), FT3 level: 1.67(L) 04/21: TSH: 3.2, FT4: 0.62, FT3:0.69 Random cortisol level measured 9.7. On Sterids-decrease HC 50mg IV Q6 Heme: Monitor CBC s/p transfusion 1unit PRBC on 04/18 DVT prophylaxis with SCDs, heparin SQ on hold given anemia requiring blood transfusion GI prophylaxis- On Protonix 40mg IV BID Lines: peripheral IV's. PT/OT Palliative care is following Will sign off and transfer care to [facility] Level 3 Jennifer Restrepo MD Apr 27, 2017 09:12
[2017-04-27] MEDS: METOPROLOL TARTRATE 50 MG TAB PO SCH ×2 (10:47→21:05)
--- NOTE | 2017-04-27 14:46 | HHI.GIFU ---
Subjective Remarks Pt resting in bed, sleeping. (Shanique Dow) Objective Vitals I&O Vital Signs Date Time Temp Pulse Resp B/P Pulse Ox O2 Delivery O2 Flow Rate FiO2 04/27/17 12:00 77 04/27/17 12:00 99.3 77 16 160/70 100 04/27/17 11:00 99.3 83 16 136/63 100 04/27/17 10:00 99.3 83 16 151/68 100 04/27/17 10:00 83 04/27/17 09:33 98 Nasal Cannula 3.00 04/27/17 09:00 99.1 82 17 142/65 100 04/27/17 08:00 99.0 81 14 136/104 100 04/27/17 08:00 81 04/27/17 07:07 100 Nasal Cannula 4.00 04/27/17 07:00 98.8 80 14 155/68 100 04/27/17 06:00 80 04/27/17 04:00 99.0 82 15 154/70 100 04/27/17 04:00 82 04/27/17 02:00 78 04/27/17 00:00 99.1 80 17 147/66 100 04/27/17 00:00 80 04/26/17 22:00 80 04/26/17 20:00 79 04/26/17 20:00 98.8 79 18 137/65 99 04/26/17 18:00 76 04/26/17 16:00 98.4 78 16 153/69 100 04/26/17 16:00 78 04/26/17 15:00 79 15 152/69 100 I/O 04/26/17 04/26/17 04/26/17 04/27/17 04/27/17 04/27/17 07:00 15:00 23:00 07:00 15:00 23:00 Intake Total 394 ml 329 ml 338 ml 246 ml Output Total 350 ml 750 ml 400 ml 850 ml Balance 44 ml -421 ml -62 ml -604 ml IV Total 8 ml 0 ml Tube Feeding 236 ml 329 ml 338 ml 246 ml Other 150 ml Output Urine Total 250 ml 450 ml 300 ml 250 ml Stool Total 100 ml 300 ml 100 ml 600 ml Laboratory Laboratory Tests Test 04/27/17 04/27/17 03:19 05:16 White Blood Count 14.7 13.4 Red Blood Count 2.55 2.39 Hemoglobin 8.2 7.4 Hematocrit 24.0 22.5 Mean Corpuscular Volume 93.9 94.4 Mean Corpuscular Hemoglobin 32.2 31.0 Mean Corpuscular Hemoglobin 34.3 32.8 Concent Red Cell Distribution Width 16.9 17.2 Platelet Count 357 366 Mean Platelet Volume 7.0 6.5 Neutrophils (%) (Auto) 86.5 88.8 Lymphocytes (%) (Auto) 8.2 6.2 Monocytes (%) (Auto) 4.9 4.6 Eosinophils (%) (Auto) 0.2 0.2 Basophils (%) (Auto) 0.2 0.2 Neutrophils # (Auto) 12.8 11.9 Lymphocytes # (Auto) 1.2 0.8 Monocytes # (Auto) 0.7 0.6 Eosinophils # (Auto) 0.0 0.0 Basophils # (Auto) 0.0 0.0 CBC Comment DIFF FINAL DIFF FINAL Differential Comment Sodium Level 147 Potassium Level 3.6 Chloride Level 112 Carbon Dioxide Level 27.9 Anion Gap 7 Blood Urea Nitrogen 20 Creatinine 0.75 Estimat Glomerular Filtration 122 Rate Random Glucose 134 Calcium Level 7.9 Phenytoin (Dilantin) Level 13.7 Imaging Last Impressions Chest X-Ray 04/23/17 0000 Signed Impressions: Service Date/Time: Sunday, April 23, 2017 16:14 - CONCLUSION: 1. ET tube in approximately 4 cm above the clair. 2. Mild increased atelectasis in the right midlung zone. Binu Reyes MD Head/Brain Mag Res Venography 04/21/17 0000 Signed Impressions: Service Date/Time: Friday, April 21, 2017 14:09 - CONCLUSION: Negative Boubacar Pearl MD Head Magnetic Resonance Angiography 04/21/17 0000 Signed Impressions: Service Date/Time: Friday, April 21, 2017 14:09 - CONCLUSION: Normal examination. Boubacar Pearl MD Brain MRI 04/20/17 0000 Signed Impressions: Service Date/Time: Thursday, April 20, 2017 14:14 - CONCLUSION: Symmetric bilateral frontal and parietal high convexity cortical edema. Unusual appearance in which venous infarction and encephalitis should be considered among the differential possibilities. Boubacar Pearl MD Chest CT 04/19/17 0000 Signed Impressions: Service Date/Time: Wednesday, April 19, 2017 17:19 - CONCLUSION: 1. Posterior bibasilar patchy opacities consistent with atelectasis and/or mild infiltrates. Clinical correlation is recommended. 2. Tiny bilateral pleural effusions. 3. Cardiomegaly and coronary artery calcifications. 4. Degenerative changes and scoliosis of the thoracic spine. Rolando Rowe MD Abdomen/Pelvis CT 04/19/17 0000 Signed Impressions: Service Date/Time: Wednesday, April 19, 2017 17:16 - CONCLUSION: 1. Tiny bilateral pleural effusions with adjacent patchy infiltrates consistent with atelectasis and/or pneumonia. Clinical correlation is recommended. 2. No acute intraabdominal process. 3. Cardiomegaly and coronary artery calcifications. 4. Degenerative changes and scoliosis of the thoracolumbar spine. Rolando Rowe MD Head CT 04/17/17 1212 Signed Impressions: Service Date/Time: Monday, April 17, 2017 14:38 - CONCLUSION: Slight atrophic and small vessel ischemic changes without any evidence for acute hemorrhage or mass effect. Omer Urena MD Abdomen Ultrasound 04/17/17 0000 Signed Impressions: Service Date/Time: Monday, April 17, 2017 15:56 - CONCLUSION: 1. Nonvisualization of the common bile duct, pancreas and spleen. 2. Simple cyst left kidney. Dariusz Louis MD Physical Exam HEENT: Normocephalic; atraumatic; no jaundice. CHEST: CTA CARDIAC: RRR with no murmur gallop or rubs. ABDOMEN: Soft, mildly distended, nontender; no hepatosplenomegaly; bowel sounds are present in all four quadrants. EXTREMITIES: No clubbing, cyanosis, + BUE edema SKIN: Normal; no rash; no jaundice. DINING ROOM SERVER: somnolent, not cooperative with exam. (Shanique Dow SPAR CAP BEVELER) Assessment and Plan Plan - Acute on chronic anemia- HH stable. likely multi factorial, this could be chronic dz related, but GI bleed couldn't be excluded. No obvious bleeding reported, heparin on hold. No documented EGD/colonoscopy, CT as below. - C-diff- Stools came (+) for C-diff and Epid 027, he is on Vancomycin, Flagyl has been ordered by [facility] ID following - Elevated LFTs- RESOLVED- likely ischemic effect, he did have episodes of hypotension. hepatitis panel (-), will monitor for now. CT of abd/pelvis on (04/19/17) 1. Tiny bilateral pleural effusions with adjacent patchy infiltrates consistent with atelectasis and/or pneumonia. Clinical correlation is recommended. 2. No acute intraabdominal process. 3. Cardiomegaly and coronary artery calcifications. 4. Degenerative changes and scoliosis of the thoracolumbar spine. US on (04/17/17)---> Nonvisualization of the common bile duct, pancreas and spleen. 2. Simple cyst left kidney. - AMS- blood culture, no growth in 5 days, urine cx negative. LP done 04/21- clear CSF, elevated glc and protein. EEG 04/19- mod- severe encephalopathy- neuro on the case - Acute respiratory failure- extubated now. - Acute kidney injury - A-fib ( on Pradaxa, this is on hold now), dementia, DM, HTN per attending - Palliative care on the case, family wish for aggressive tx Plan: - TF per attending - per ST puree, honey thickened liquids - No obvious bleeding, will hold off on EGD/colonoscopy for now - Notify GI of active bleeding - cont. Vancomycin - Cont. Flagyl - Monitor HH, transfuse as needed - Supportive care Patient seen and examined by Dr. Arriaza and myself and this note is written on her behalf. (Shanique Dow) Physician Comments seen, examined agree with the above (Jennie Arriaza MD) Shanique Dow Apr 27, 2017 14:46 Jennie Arriaza MD Apr 27, 2017 17:17
[2017-04-27] MEDS: ARTIFICIAL TEARS OPTH SOLN 15 ML BTL RIGHT EYE PRN (21:03)
--- NOTE | 2017-04-27 21:06 | HHI.IDPN ---
Subjective Subjective Remarks is a 76 y/o CM residential resident with a reported PMHx of hypothyroidism, hypertension, diabetes mellitus, dementia, seizure disorder on Dilantin, atrial fibrillation on Pradaxa who presented to the [facility] Emergency Department for confusion and altered mental status. The patient was also found hypothermic with a temperature of 88.9 rectally. History obtained from review of medical records no family could be reached. His laboratory data showed acute kidney injury with creatinine level 1.37 and hyperkalemia with a potassium level 6.0. His lactic acid level measured at 0.8. In addition, he was found to have elevated liver enzymes with AST 177, ALT 168 and total bilirubin less than 0.1. Due to altered mental status, the patient was intubated with etomidate, vecuronium and placed on full mechanical ventilation. CT scan of the brain obtained in the emergency department showed slight atrophic and small vessel ischemic changes without any evidence for acute hemorrhage or mass effect. Chest x-ray post intubation showed right upper lobe and left lower lobe densities and adequate placement of the ET tube. In the emergency room, the patient was given approximately 1.5 liters of crystalloids in addition to vancomycin and Zosyn for possible aspiration pneumonia.\ He has + C.diff MRI showed unusual appearance in which venous infarction and encephalitis should be considered among the differential possibilities. MRA/MRV normal. HSV PCR neg. Pt remains intubated, remains intubated. he has large amount of thick odom secretions Overnight events reviewed. Responds occ verbally. Did not follow commands but understands. He said 'no' when I asked him to squeeze my hand. No fever No rash Continues to have large volume watery diarrhea (500 cc/shift), has dignishield. Antibiotics Vanco oral Flagyl oral Zosyn IV Lines Line sites with no e.o infection. Past Medical History 1. Dementia. 2. Hypertension. 3. Seizure disorder. 4. Atrial fibrillation. 5. Diabetes. 6. Gastroesophageal reflux disease (GERD). 7. Schizophrenia. 8. Chronic kidney disease. 9. Anemia. 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 Vital Signs Date Time Temp Pulse Resp B/P Pulse Ox O2 Delivery O2 Flow Rate FiO2 04/27/17 20:09 99 Nasal Cannula 3.00 04/27/17 18:00 79 04/27/17 16:00 76 04/27/17 16:00 98.8 76 17 154/74 98 04/27/17 15:00 98.8 75 15 150/71 99 04/27/17 14:00 99.1 76 13 158/71 100 04/27/17 14:00 76 04/27/17 13:00 99.3 80 16 156/71 100 04/27/17 12:00 77 04/27/17 12:00 99.3 77 16 160/70 100 04/27/17 11:00 99.3 83 16 136/63 100 04/27/17 10:00 99.3 83 16 151/68 100 04/27/17 10:00 83 04/27/17 09:33 98 Nasal Cannula 3.00 04/27/17 09:00 99.1 82 17 142/65 100 04/27/17 08:00 99.0 81 14 136/104 100 04/27/17 08:00 81 04/27/17 07:07 100 Nasal Cannula 4.00 04/27/17 07:00 98.8 80 14 155/68 100 04/27/17 06:00 80 04/27/17 04:00 99.0 82 15 154/70 100 04/27/17 04:00 82 04/27/17 02:00 78 04/27/17 00:00 99.1 80 17 147/66 100 04/27/17 00:00 80 04/26/17 22:00 80 04/26/17 04/26/17 04/27/17 15:00 23:00 07:00 Intake Total 329 ml 338 ml 246 ml Output Total 750 ml 400 ml 850 ml Balance -421 ml -62 ml -604 ml IV Total 0 ml Tube Feeding 329 ml 338 ml 246 ml Output Urine Total 450 ml 300 ml 250 ml Stool Total 300 ml 100 ml 600 ml . Laboratory Tests Test 04/27/17 04/27/17 03:19 05:16 White Blood Count 14.7 TH/MM3 13.4 TH/MM3 Red Blood Count 2.55 MIL/MM3 2.39 MIL/MM3 Hemoglobin 8.2 GM/DL 7.4 GM/DL Hematocrit 24.0 % 22.5 % Mean Corpuscular Volume 93.9 FL 94.4 FL Mean Corpuscular Hemoglobin 32.2 PG 31.0 PG Mean Corpuscular Hemoglobin 34.3 % 32.8 % Concent Red Cell Distribution Width 16.9 % 17.2 % Platelet Count 357 TH/MM3 366 TH/MM3 Mean Platelet Volume 7.0 FL 6.5 FL Neutrophils (%) (Auto) 86.5 % 88.8 % Lymphocytes (%) (Auto) 8.2 % 6.2 % Monocytes (%) (Auto) 4.9 % 4.6 % Eosinophils (%) (Auto) 0.2 % 0.2 % Basophils (%) (Auto) 0.2 % 0.2 % Neutrophils # (Auto) 12.8 TH/MM3 11.9 TH/MM3 Lymphocytes # (Auto) 1.2 TH/MM3 0.8 TH/MM3 Monocytes # (Auto) 0.7 TH/MM3 0.6 TH/MM3 Eosinophils # (Auto) 0.0 TH/MM3 0.0 TH/MM3 Basophils # (Auto) 0.0 TH/MM3 0.0 TH/MM3 CBC Comment DIFF FINAL DIFF FINAL Differential Comment Laboratory Tests Test 04/26/17 04/27/17 08:43 05:16 Sodium Level 145 MEQ/L 147 MEQ/L Potassium Level 3.9 MEQ/L 3.6 MEQ/L Chloride Level 111 MEQ/L 112 MEQ/L Carbon Dioxide Level 24.0 MEQ/L 27.9 MEQ/L Anion Gap 10 MEQ/L 7 MEQ/L Blood Urea Nitrogen 22 MG/DL 20 MG/DL Creatinine 0.85 MG/DL 0.75 MG/DL Estimat Glomerular Filtration 106 ML/MIN 122 ML/MIN Rate Random Glucose 115 MG/DL 134 MG/DL Calcium Level 8.2 MG/DL 7.9 MG/DL Imaging Last Impressions Chest X-Ray 04/23/17 0000 Signed Impressions: Service Date/Time: Sunday, April 23, 2017 16:14 - CONCLUSION: 1. ET tube in approximately 4 cm above the clair. 2. Mild increased atelectasis in the right midlung zone. Binu Reyes MD Head/Brain Mag Res Venography 04/21/17 0000 Signed Impressions: Service Date/Time: Friday, April 21, 2017 14:09 - CONCLUSION: Negative Boubacar Pearl MD Head Magnetic Resonance Angiography 04/21/17 0000 Signed Impressions: Service Date/Time: Friday, April 21, 2017 14:09 - CONCLUSION: Normal examination. Boubacar Pearl MD Brain MRI 04/20/17 0000 Signed Impressions: Service Date/Time: Thursday, April 20, 2017 14:14 - CONCLUSION: Symmetric bilateral frontal and parietal high convexity cortical edema. Unusual appearance in which venous infarction and encephalitis should be considered among the differential possibilities. Boubacar Pearl MD Chest CT 04/19/17 0000 Signed Impressions: Service Date/Time: Wednesday, April 19, 2017 17:19 - CONCLUSION: 1. Posterior bibasilar patchy opacities consistent with atelectasis and/or mild infiltrates. Clinical correlation is recommended. 2. Tiny bilateral pleural effusions. 3. Cardiomegaly and coronary artery calcifications. 4. Degenerative changes and scoliosis of the thoracic spine. Rolando Rowe MD Abdomen/Pelvis CT 04/19/17 0000 Signed Impressions: Service Date/Time: Wednesday, April 19, 2017 17:16 - CONCLUSION: 1. Tiny bilateral pleural effusions with adjacent patchy infiltrates consistent with atelectasis and/or pneumonia. Clinical correlation is recommended. 2. No acute intraabdominal process. 3. Cardiomegaly and coronary artery calcifications. 4. Degenerative changes and scoliosis of the thoracolumbar spine. Rolando Rowe MD Head CT 04/17/17 1212 Signed Impressions: Service Date/Time: Monday, April 17, 2017 14:38 - CONCLUSION: Slight atrophic and small vessel ischemic changes without any evidence for acute hemorrhage or mass effect. Omer Urena MD Abdomen Ultrasound 04/17/17 0000 Signed Impressions: Service Date/Time: Monday, April 17, 2017 15:56 - CONCLUSION: 1. Nonvisualization of the common bile duct, pancreas and spleen. 2. Simple cyst left kidney. Dariusz Louis MD Physical Exam GENERAL: This is a well-nourished, well-developed patient, in no apparent distress. SKIN: No rashes, ecchymoses or lesions. Cool and dry. HEAD: Atraumatic. Normocephalic. No temporal or scalp tenderness. EYES: Pupils equal round and reactive. Extraocular motions intact. No scleral icterus. No injection or drainage. ENT: Intubated. NECK: Trachea midline. Supple, nontender, no meningeal signs. CARDIOVASCULAR: Regular rate and rhythm without murmurs, gallops, or rubs. RESPIRATORY: Clear to auscultation. Breath sounds equal bilaterally. No wheezes , rales, or rhonchi. GASTROINTESTINAL: Abdomen soft, non-tender, nondistended. MUSCULOSKELETAL: Extremities without clubbing, cyanosis, or edema. No joint tenderness, effusion, or edema noted. No calf tenderness. Negative Homans sign bilaterally. NEUROLOGICAL: Off sedation, moving upper body and neck. No meaningful response. Opens eyes spontaneously. Psych: could not be assessed IV line sites with no e.o infection. Assessment & Plan Remarks Cdiff, hypervirulent 027 strain Acute metabolic encephalopathy: infection, metabolic, hypothyroidism - HSV PCR neg. Slowly improving. H/o seizures Leukemoid reaction secondary to Cdiff. Recs: Continue Flagyl oral (for Cdiff) stop date 05/05/17. Continue oral Vanco for total of 2 week course. Negative CSF encephalitis panel and CSF TRINITY virus and VDRL. Follow sputum cultures Follow cultures Follow clinically. follow additional neuro tests ordered. Richardson RN for pt and also [facility] MD. Will sign off please call back if any change in clinical condition or questions. Sana Kumar MD Apr 27, 2017 21:06
[2017-04-28] VITALS (13 sets, daily range): BP systolic 129–179; BP diastolic 63–76; PULSE 72–87; RESP 13–20; TEMP 98–98.1; O2SAT 97–100
[2017-04-28] MEDS: VANCOMYCIN 500 MG VIAL (FOR ORAL USE ONLY) PO SCH ×4 (01:19→16:51)
[2017-04-28] MEDS: HYDROCORTISONE SOD SUCCINATE 100 MG VIAL IV PUSH SCH ×4 (01:20→20:28)
[2017-04-28] MEDS: CHLORHEXIDINE GLUCONATE 2 % 1 PACK (2 CLOTHS) TOP SCH (01:20)
[2017-04-28] MEDS: PHENYTOIN INJ 100 MG/2 ML VIAL IV SCH ×3 (04:53→20:30)
[2017-04-28] MEDS: metroNIDAZOLE 500 MG TAB PO SCH ×3 (04:54→20:30)
[2017-04-28] MEDS: LEVOTHYROXINE SODIUM 50 MCG TAB PO SCH (04:54)
[2017-04-28] MEDS: METOPROLOL TARTRATE 50 MG TAB PO SCH ×2 (08:53→20:29)
[2017-04-28] MEDS: PANTOPRAZOLE SODIUM 40 MG VIAL IV SCH ×2 (08:53→20:28)
[2017-04-28] MEDS: ARTIFICIAL TEARS OPTH SOLN 15 ML BTL RIGHT EYE PRN (08:55)
[2017-04-28] MEDS: DOCUSATE SODIUM 50 MG/SENNA 8.6 MG TAB PO SCH ×2 (09:00→20:29)
[2017-04-28] MEDS: LACTULOSE SYRUP 20 GM/30 ML CUP PO SCH ×2 (09:00→20:27)
[2017-04-28 09:10] LABS: MEAN CORPUSCULAR HGB CONC 32.7 % (32.0-36.0); PLATELET COUNT 360 TH/MM3 (150-450); RED BLOOD COUNT 2.42 MIL/MM3 (4.50-5.90); RED CELL DISTRIBUTION WIDTH 17.7 % (11.6-17.2); WHITE BLOOD COUNT 15.7 TH/MM3 (4.0-11.0)
[2017-04-28 09:12] LABS: HEMO FLAGS AUTO DIFF
[2017-04-28 09:14] LABS: POTASSIUM 3.7 MEQ/L (3.5-5.1)
--- NOTE | 2017-04-28 10:02 | HHI.PR ---
Subjective Remarks Patient unable to give history. He was admitted for hypothermia, sepsis, and aspiration pneumonia. Improving since admit. Objective Vital Signs Date Time Temp Pulse Resp B/P Pulse Ox O2 Delivery O2 Flow Rate FiO2 04/28/17 06:00 79 04/28/17 04:00 79 04/28/17 04:00 99.1 79 14 138/63 99 04/28/17 02:00 80 04/28/17 00:00 79 04/28/17 00:00 98.8 79 19 150/66 100 04/27/17 22:00 80 04/27/17 20:09 99 Nasal Cannula 3.00 04/27/17 20:00 99.3 81 16 118/59 100 04/27/17 20:00 81 04/27/17 18:00 79 04/27/17 16:00 76 04/27/17 16:00 98.8 76 17 154/74 98 04/27/17 15:00 98.8 75 15 150/71 99 04/27/17 14:00 99.1 76 13 158/71 100 04/27/17 14:00 76 04/27/17 13:00 99.3 80 16 156/71 100 04/27/17 12:00 77 04/27/17 12:00 99.3 77 16 160/70 100 04/27/17 11:00 99.3 83 16 136/63 100 04/27/17 10:00 99.3 83 16 151/68 100 04/27/17 10:00 83 I/O 04/27/17 04/27/17 04/27/17 04/28/17 04/28/17 04/28/17 07:00 15:00 23:00 07:00 15:00 23:00 Intake Total 246 ml 463 ml 291 ml 310 ml Output Total 850 ml 750 ml 600 ml 525 ml Balance -604 ml -287 ml -309 ml -215 ml IV Total 463 ml Tube Feeding 246 ml 291 ml 310 ml Output Urine Total 250 ml 550 ml 300 ml 225 ml Stool Total 600 ml 200 ml 300 ml 300 ml Result Diagram: 04/28/1747 04/28/17 0847 Objective Remarks GENERAL: NAD, A&Ox0 HEAD: Normocephalic. NECK: Supple, trachea midline. No lymphadenopathy. EYES: No scleral icterus. No injection or drainage. CARDIOVASCULAR: Regular rate and rhythm without murmurs, gallops, or rubs. RESPIRATORY: Breath sounds equal bilaterally. No accessory muscle use. GASTROINTESTINAL: Abdomen soft, non-tender, nondistended. MUSCULOSKELETAL: No cyanosis, or edema. SKIN: Warm and dry. NEURO: No focal neurological deficitis. A/P Problem List: (1) Debility ICD Code: R53.81 (2) Encephalopathy ICD Code: G93.40 (3) Acute kidney injury ICD Code: N17.9 (4) Dementia with behavioral disturbance ICD Code: F03.91 (5) Seizures ICD Code: R56.9 (6) Aspiration pneumonia ICD Code: J69.0 (7) Hypothermia ICD Code: T68.XXXA (8) Shortness of breath ICD Code: R06.02 Assessment and Plan Assessment and Plan 76-year-old male admitted secondary to sepsis, hypothermia, and pneumonia. Transfer out of ICU 04/28/17. Sepsis Hypothermia Resolved Dementia Encephalopathy Global Debility Failure to thrive Palliative care following Respiratory failure Possible Aspiration Extubated 04/24/17 Respiratory status is improving Respiratory status stable for the past 3 days Transfer out of ICU Continue oxygen as needed As needed bronchodilators Aspiration precautions Acute kidney injury Chronic kidney disease Follow renal function Hyperkalemia Resolved Now stable Monitor Acute blood loss anemia Transfuse 1 unit packed red blood cells Follow CBC Transfuse again if needed Avoiding blood thinners for now Adrenal crisis May have been related to septic state of admit Currently on hydrocortisone IV Continue hydrocortisone IV for now Elevated LFTs Follow CMP Hypertension Continue Lopressor Seizure disorder Continue Dilantin Follow Dilantin levels History of A. fib Off blood thinners for now given bleed Follow on telemetry C. difficile colitis Flagyl By mouth vancomycin ID following Diabetes mellitus type 2 Follow blood sugars Insulin sliding scale Hypothyroidism Continue Synthroid 50 g daily DVT prophylaxis Continue SCDs Heparin on hold given anemia and blood transfusion Demarco Middleton MD Apr 28, 2017 10:02
[2017-04-28 11:46] LABS: BANDS 2 % (0-6); CORRECTED NUCLEATED RBC 1 /100 WBC (0-0); NEUTROPHIL # MANUAL DIFF 12.2 TH/MM3 (1.8-7.7); POLYS (SEG NEUTROPHILS) 76 % (16-70); WBC DIFF SAMPLE 100
[2017-04-28 11:47] LABS: PLATELET ESTIMATE SMEAR NORMAL (NORMAL); PLATELET MORPHOLOGY NORMAL (NORMAL); SCAN/DIFF FINAL DIFF MANUAL
[2017-04-28 15:28] LABS: OLIGOCLONAL BANDING CSF 4 bands (()); OLIGOCLONAL BANDING INTERPRET 0 bands (<4); OLIGOCLONAL BANDING SERUM 4 bands (())
--- NOTE | 2017-04-28 15:54 | HHI.GIFU ---
Subjective Remarks Pt resting in bed in no apparent distress. More cooperative today. Per RN ate all his lunch. (Shanique Dow) Objective Vitals I&O Vital Signs Date Time Temp Pulse Resp B/P Pulse Ox O2 Delivery O2 Flow Rate FiO2 04/28/17 13:36 100 3.00 04/28/17 12:00 75 04/28/17 12:00 98.6 75 14 169/72 100 04/28/17 10:00 72 04/28/17 09:00 98.6 74 15 175/73 100 04/28/17 08:00 76 04/28/17 08:00 98.6 76 14 160/71 100 04/28/17 07:00 98.8 82 13 145/68 100 04/28/17 06:00 79 04/28/17 04:00 79 04/28/17 04:00 99.1 79 14 138/63 99 04/28/17 02:00 80 04/28/17 00:00 79 04/28/17 00:00 98.8 79 19 150/66 100 04/27/17 22:00 80 04/27/17 20:09 99 Nasal Cannula 3.00 04/27/17 20:00 99.3 81 16 118/59 100 04/27/17 20:00 81 04/27/17 18:00 79 04/27/17 16:00 76 04/27/17 16:00 98.8 76 17 154/74 98 I/O 04/27/17 04/27/17 04/27/17 04/28/17 04/28/17 04/28/17 06:59 14:59 22:59 06:59 14:59 22:59 Intake Total 246 ml 463 ml 291 ml 310 ml 482 ml Output Total 850 ml 750 ml 600 ml 525 ml 800 ml Balance -604 ml -287 ml -309 ml -215 ml -318 ml IV Total 463 ml Tube Feeding 246 ml 291 ml 310 ml 382 ml Other 100 ml Output Urine Total 250 ml 550 ml 300 ml 225 ml 400 ml Stool Total 600 ml 200 ml 300 ml 300 ml 400 ml Laboratory Laboratory Tests Test 04/28/17 08:47 White Blood Count 15.7 Red Blood Count 2.42 Hemoglobin 7.5 Hematocrit 23.0 Mean Corpuscular Volume 95.0 Mean Corpuscular Hemoglobin 31.0 Mean Corpuscular Hemoglobin 32.7 Concent Red Cell Distribution Width 17.7 Platelet Count 360 Mean Platelet Volume 7.7 Neutrophils (%) (Auto) Lymphocytes (%) (Auto) Monocytes (%) (Auto) Eosinophils (%) (Auto) Basophils (%) (Auto) Neutrophils # (Auto) Lymphocytes # (Auto) Monocytes # (Auto) Eosinophils # (Auto) Basophils # (Auto) CBC Comment AUTO DIFF Differential Total Cells 100 Counted Neutrophils % (Manual) 76 Band Neutrophils % 2 Lymphocytes % 16 Monocytes % 6 Neutrophils # (Manual) 12.2 Nucleated Red Blood Cells 1 Differential Comment FINAL DIFF MANUAL Platelet Estimate NORMAL Platelet Morphology Comment NORMAL Red Cell Morphology Comment NORMAL Hematology Comments Sodium Level 148 Potassium Level 3.7 Chloride Level 110 Carbon Dioxide Level 28.0 Anion Gap 10 Blood Urea Nitrogen 20 Creatinine 0.77 Estimat Glomerular Filtration 118 Rate Random Glucose 105 Calcium Level 7.8 Imaging Last Impressions Chest X-Ray 04/23/17 0000 Signed Impressions: Service Date/Time: Sunday, April 23, 2017 16:14 - CONCLUSION: 1. ET tube in approximately 4 cm above the clair. 2. Mild increased atelectasis in the right midlung zone. Binu Reyes MD Head/Brain Mag Res Venography 04/21/17 0000 Signed Impressions: Service Date/Time: Friday, April 21, 2017 14:09 - CONCLUSION: Negative Boubacar Pearl MD Head Magnetic Resonance Angiography 04/21/17 0000 Signed Impressions: Service Date/Time: Friday, April 21, 2017 14:09 - CONCLUSION: Normal examination. Boubacar Pearl MD Brain MRI 04/20/17 0000 Signed Impressions: Service Date/Time: Thursday, April 20, 2017 14:14 - CONCLUSION: Symmetric bilateral frontal and parietal high convexity cortical edema. Unusual appearance in which venous infarction and encephalitis should be considered among the differential possibilities. Boubacar Pearl MD Chest CT 04/19/17 0000 Signed Impressions: Service Date/Time: Wednesday, April 19, 2017 17:19 - CONCLUSION: 1. Posterior bibasilar patchy opacities consistent with atelectasis and/or mild infiltrates. Clinical correlation is recommended. 2. Tiny bilateral pleural effusions. 3. Cardiomegaly and coronary artery calcifications. 4. Degenerative changes and scoliosis of the thoracic spine. Rolando Rowe MD Abdomen/Pelvis CT 04/19/17 0000 Signed Impressions: Service Date/Time: Wednesday, April 19, 2017 17:16 - CONCLUSION: 1. Tiny bilateral pleural effusions with adjacent patchy infiltrates consistent with atelectasis and/or pneumonia. Clinical correlation is recommended. 2. No acute intraabdominal process. 3. Cardiomegaly and coronary artery calcifications. 4. Degenerative changes and scoliosis of the thoracolumbar spine. Rolando Rowe MD Head CT 04/17/17 1212 Signed Impressions: Service Date/Time: Monday, April 17, 2017 14:38 - CONCLUSION: Slight atrophic and small vessel ischemic changes without any evidence for acute hemorrhage or mass effect. Omer Urena MD Abdomen Ultrasound 04/17/17 0000 Signed Impressions: Service Date/Time: Monday, April 17, 2017 15:56 - CONCLUSION: 1. Nonvisualization of the common bile duct, pancreas and spleen. 2. Simple cyst left kidney. Dariusz Louis MD Physical Exam HEENT: Normocephalic; atraumatic; no jaundice. CHEST: CTA CARDIAC: RRR with no murmur gallop or rubs. ABDOMEN: Soft, mildly distended, nontender; no hepatosplenomegaly; bowel sounds are present in all four quadrants. EXTREMITIES: No clubbing, cyanosis, + BUE edema SKIN: Normal; no rash; no jaundice. 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 (Shanique Dow [facility]) Assessment and Plan Plan - Acute on chronic anemia- HH stable. likely multi factorial, this could be chronic dz related, but GI bleed couldn't be excluded. No obvious bleeding reported, heparin on hold. No documented EGD/colonoscopy, CT as below. - C-diff- Stools came (+) for C-diff and Epid 027, he is on Vancomycin, Flagyl has been ordered by [facility] ID signed off - Elevated LFTs- RESOLVED- likely ischemic effect, he did have episodes of hypotension. hepatitis panel (-), will monitor for now. CT of abd/pelvis on (04/19/17) 1. Tiny bilateral pleural effusions with adjacent patchy infiltrates consistent with atelectasis and/or pneumonia. Clinical correlation is recommended. 2. No acute intraabdominal process. 3. Cardiomegaly and coronary artery calcifications. 4. Degenerative changes and scoliosis of the thoracolumbar spine. US on (04/17/17)---> Nonvisualization of the common bile duct, pancreas and spleen. 2. Simple cyst left kidney. - AMS- blood culture, no growth in 5 days, urine cx negative. LP done 04/21- clear CSF, elevated glc and protein. EEG 04/19- mod- severe encephalopathy- neuro on the case - Acute respiratory failure- extubated now. - Acute kidney injury - A-fib ( on Pradaxa, this is on hold now), dementia, DM, HTN per attending - Palliative care on the case, family wish for aggressive tx Plan: - TF per attending - per ST puree, honey thickened liquids - if pt continues with good PO intake, consider d/c NGT - No obvious bleeding, will hold off on EGD/colonoscopy for now - Notify GI of active bleeding - cont. Vancomycin - Cont. Flagyl - Monitor HH, transfuse as needed - Supportive care Patient seen and examined by Dr. Arriaza and myself and this note is written on her behalf. (Shanique Dow) Shanique Dow Apr 28, 2017 15:54 Jennie Arriaza MD Apr 28, 2017 18:38
[2017-04-29] VITALS (9 sets, daily range): BP systolic 117–186; BP diastolic 62–86; PULSE 82–88; RESP 18–20; TEMP 97–98.4; O2SAT 92–99
[2017-04-29] MEDS: HYDROCORTISONE SOD SUCCINATE 100 MG VIAL IV PUSH SCH ×4 (00:43→21:26)
[2017-04-29] MEDS: VANCOMYCIN 500 MG VIAL (FOR ORAL USE ONLY) PO SCH ×5 (00:43→23:50)
[2017-04-29] MEDS: CHLORHEXIDINE GLUCONATE 2 % 1 PACK (2 CLOTHS) TOP SCH (04:00)
[2017-04-29] MEDS: metroNIDAZOLE 500 MG TAB PO SCH ×3 (05:01→21:25)
[2017-04-29] MEDS: LEVOTHYROXINE SODIUM 50 MCG TAB PO SCH (05:01)
[2017-04-29] MEDS: PHENYTOIN INJ 100 MG/2 ML VIAL IV SCH ×3 (05:01→21:26)
[2017-04-29] MEDS: METOPROLOL TARTRATE 50 MG TAB PO SCH ×2 (08:15→21:25)
[2017-04-29] MEDS: DOCUSATE SODIUM 50 MG/SENNA 8.6 MG TAB PO SCH ×2 (08:16→21:00)
[2017-04-29] MEDS: LACTULOSE SYRUP 20 GM/30 ML CUP PO SCH ×2 (08:16→21:00)
[2017-04-29] MEDS: PANTOPRAZOLE SODIUM 40 MG VIAL IV SCH ×2 (08:16→21:26)
[2017-04-29] MEDS: ARTIFICIAL TEARS OPTH SOLN 15 ML BTL RIGHT EYE PRN (08:25)
[2017-04-29 08:37] LABS: HEMATOCRIT 23.9 % (39.0-51.0); MEAN CELL VOLUME 95.3 FL (80.0-100.0); MEAN CORPUSCULAR HEMOGLOBIN 31.8 PG (27.0-34.0); MEAN CORPUSCULAR HGB CONC 33.4 % (32.0-36.0); PLATELET COUNT 462 TH/MM3 (150-450); RED BLOOD COUNT 2.51 MIL/MM3 (4.50-5.90); RED CELL DISTRIBUTION WIDTH 18.3 % (11.6-17.2); REVIEW FLAG FINAL; WHITE BLOOD COUNT 12.4 TH/MM3 (4.0-11.0)
[2017-04-29 09:12] LABS: BICARBONATE 31.5 MEQ/L (21.0-32.0); POTASSIUM 3.6 MEQ/L (3.5-5.1)
--- NOTE | 2017-04-29 12:26 | HHI.HCPN ---
Reason for visit a. To assist with evaluation and management of symptoms including: Shortness of breath and debility. b. To assist medical decision maker(s) with: better understanding of current medical conditions; weighing benefits/burdens of medical treatment options; making medical treatment decisions. . Subjective/Interval History Mr. Rivera is a 76 y/o male known to palliative care with a medical history of dementia, atrial fibrillation on anticoagulation, seizures, hypertension, schizophrenia and chronic kidney disease. Patient presented to ED on 04/17/17 via EMS for evaluation of altered mental status. He was intubated for airway protection and transferred to ICU for further management. Palliative care has been consulted for further clarifications of goals of care given patient's multiple comorbidities and current clinical condition. Patient medically extubated on 04/24/17. He was seen in the medical floor. Improved neurological status, awake and alert to self. Patient verbal, but not always able to communicate needs secondary to confusion/dementia. He was able to tell me his name, confused as to place and situation. Following some simple commands such as "squeeze my hand". Answering "no" when asked about pain or discomfort. Laboratory workup revealing WBC 12.4, Hgb 8.0, platelet count 462. No new imaging for review. Patient remains afebrile, hypertensive with SBP in the 150s to 170s. Tolerating O2 via nasal cannula at 2 L, oxygen saturation in the mid 90s. Currently receiving tube feeds via NG tube at 45 mL/hour. Patient on pure thickened diet with honey consistency liquids, eating some of his meals. . Family/friend interactions Telephone conversation with patient's son Chad Rivera and conversation with daughter Suzi Ortiz. Medical update provided. Reviewed improvement in patient's neurological status/alertness. Reviewed dysphagia and concerns of long-term feeding tube/PEG. Discussed risks, benefits and limitations of PEG tube given patient's multiple comorbidities, dementia, profound physical deconditioning and advanced age. Discussed dementia as a terminal condition. Son tells me that PEG tube has been declined in the past given the above, high risk that patient may pull it given his baseline dementia. Goal of therapy is to allow a few more days for clinical improvement, family wishing for patient to return to his long-term facility. Discussed with family that patient would likely continue developing complications such as aspiration pneumonia given his dementia and multiple chronic comorbidities. Discussed continuation of conservative management versus transition to comfort-directed care with hospice. Hospice benefits and philosophy introduced. Family receptive to this, but son reports "not at this time". Discussed the future role of hospice should patient's clinical condition continues to worsen, further complications and continue decline. . Advance Directives Durable Power of Web Marketing Analyst: Copy in medical record Advance Directive Specifics Date completed: 05/04/2014 -- THIS IS A [place] [employer] POWER OF FLIGHT CONTROL TOWER OPERATOR DOCUMENT. IT DOES NOT REFER TO HEALTH CARE DECISION MAKING. Financial decision making is given to Chad Rivera. Health Care Surrogate(s): During previous hospitalization, all available children were previously contacted by palliative care. All have deferred health care decision making to two of the children Chad and Suzi as co-HCP. * Chad Rivera (son) who lives in [place] [phone] * Suzi Ortiz (daughter) who lives in [facility] [phone] . Documented care wishes: No living will completed. During the previous hospitalization, the family continued to want aggressive care, including intubation for some number of days. Significant change in goals: Alternative code/intubation only. Continue conservative management. Objective Vital Signs Date Time Temp Pulse Resp B/P Pulse Ox O2 Delivery O2 Flow Rate FiO2 04/29/17 11:19 84 04/29/17 08:17 Room Air 04/29/17 08:00 97.3 83 18 171/70 97 04/29/17 04:20 Nasal Cannula 2.00 04/29/17 04:11 Nasal Cannula 2.00 04/29/17 04:00 97.5 88 18 154/71 94 04/29/17 00:00 Nasal Cannula 2.00 04/29/17 00:00 97.6 84 18 117/74 93 04/28/17 20:14 87 04/28/17 20:00 Nasal Cannula 2.00 04/28/17 20:00 98.1 80 20 179/76 97 04/28/17 16:00 98.0 77 20 129/65 97 04/28/17 13:36 100 3.00 Intake & Output 04/29/17 04/29/17 07:00 19:00 Intake Total 728 ml Output Total 900 ml Balance -172 ml IV Total 8 ml Tube Feeding 720 ml Output Urine Total 900 ml Physical Exam CONSTITUTIONAL/GENERAL: This is an elderly patient in no apparent distress. TUBES/LINES/DRAINS: central line to left chest, Naik catheter, rectal tube, SCDs. SKIN: No jaundice, rashes, or lesions. Ecchymoses on upper extremities. No wounds seen anteriorly. Not diaphoretic. HEAD: Atraumatic. Normocephalic. EYES: Right eye with conjunctival hemorrhage. Bilateral arcus senilis. No scleral icterus. ENT: Hearing appears normal. Nose without bleeding or purulent drainage. Moist oral mucosa. NG tube to left nare. NECK: Trachea midline. Supple. CARDIOVASCULAR: Regular rate and rhythm. Peripheral pulses symmetric. RESPIRATORY/CHEST: Symmetric, unlabored respirations. Clear, diminished breath sounds. GASTROINTESTINAL: Abdomen large, round, soft. No guarding. Bowel sounds present. GENITOURINARY: Without palpable bladder distension. Naik catheter in place. MUSCULOSKELETAL: Extremities without clubbing, cyanosis. Edema to bilateral hands. NEUROLOGICAL: Alert and oriented times self. Verbal but not always able to communicate needs secondary to confusion. Following some simple commands. PSYCHIATRIC: Calm. Diagnostic Tests Laboratory Laboratory Tests Test 04/27/17 04/27/17 04/28/17 04/29/17 03:19 05:16 08:47 06:14 White Blood Count 14.7 TH/MM3 13.4 TH/MM3 15.7 TH/MM3 12.4 TH/MM3 (4.0-11.0) (4.0-11.0) (4.0-11.0) (4.0-11.0) Red Blood Count 2.55 MIL/MM3 2.39 MIL/MM3 2.42 MIL/MM3 2.51 MIL/MM3 (4.50-5.90) (4.50-5.90) (4.50-5.90) (4.50-5.90) Hemoglobin 8.2 GM/DL 7.4 GM/DL 7.5 GM/DL 8.0 GM/DL (13.0-17.0) (13.0-17.0) (13.0-17.0) (13.0-17.0) Hematocrit 24.0 % 22.5 % 23.0 % 23.9 % (39.0-51.0) (39.0-51.0) (39.0-51.0) (39.0-51.0) Mean Corpuscular Volume 93.9 FL 94.4 FL 95.0 FL 95.3 FL (80.0-100.0) (80.0-100.0) (80.0-100.0) (80.0-100.0) Mean Corpuscular Hemoglobin 32.2 PG 31.0 PG 31.0 PG 31.8 PG (27.0-34.0) (27.0-34.0) (27.0-34.0) (27.0-34.0) Mean Corpuscular Hemoglobin 34.3 % 32.8 % 32.7 % 33.4 % Concent (32.0-36.0) (32.0-36.0) (32.0-36.0) (32.0-36.0) Red Cell Distribution Width 16.9 % 17.2 % 17.7 % 18.3 % (11.6-17.2) (11.6-17.2) (11.6-17.2) (11.6-17.2) Platelet Count 357 TH/MM3 366 TH/MM3 360 TH/MM3 462 TH/MM3 (150-450) (150-450) (150-450) (150-450) Mean Platelet Volume 7.0 FL 6.5 FL 7.7 FL 6.9 FL (7.0-11.0) (7.0-11.0) (7.0-11.0) (7.0-11.0) Neutrophils (%) (Auto) 86.5 % 88.8 % % (16.0-70.0) (16.0-70.0) (16.0-70.0) Lymphocytes (%) (Auto) 8.2 % 6.2 % % (9.0-44.0) (9.0-44.0) (9.0-44.0) Monocytes (%) (Auto) 4.9 % (0.0-8.0) 4.6 % (0.0-8.0) % (0.0-8.0) Eosinophils (%) (Auto) 0.2 % (0.0-4.0) 0.2 % (0.0-4.0) % (0.0-4.0) Basophils (%) (Auto) 0.2 % (0.0-2.0) 0.2 % (0.0-2.0) % (0.0-2.0) Neutrophils # (Auto) 12.8 TH/MM3 11.9 TH/MM3 TH/MM3 (1.8-7.7) (1.8-7.7) (1.8-7.7) Lymphocytes # (Auto) 1.2 TH/MM3 0.8 TH/MM3 TH/MM3 (1.0-4.8) (1.0-4.8) (1.0-4.8) Monocytes # (Auto) 0.7 TH/MM3 0.6 TH/MM3 TH/MM3 (0-0.9) (0-0.9) (0-0.9) Eosinophils # (Auto) 0.0 TH/MM3 0.0 TH/MM3 TH/MM3 (0-0.4) (0-0.4) (0-0.4) Basophils # (Auto) 0.0 TH/MM3 0.0 TH/MM3 TH/MM3 (0-0.2) (0-0.2) (0-0.2) CBC Comment DIFF FINAL DIFF FINAL AUTO DIFF Differential Comment FINAL DIFF MANUAL Sodium Level 147 MEQ/L 148 MEQ/L 147 MEQ/L (136-145) (136-145) (136-145) Potassium Level 3.6 MEQ/L 3.7 MEQ/L 3.6 MEQ/L (3.5-5.1) (3.5-5.1) (3.5-5.1) Chloride Level 112 MEQ/L 110 MEQ/L 108 MEQ/L (98-107) (98-107) (98-107) Carbon Dioxide Level 27.9 MEQ/L 28.0 MEQ/L 31.5 MEQ/L (21.0-32.0) (21.0-32.0) (21.0-32.0) Anion Gap 7 MEQ/L (5-15) 10 MEQ/L (5-15) 8 MEQ/L (5-15) Blood Urea Nitrogen 20 MG/DL (7-18) 20 MG/DL (7-18) 19 MG/DL (7-18) Creatinine 0.75 MG/DL 0.77 MG/DL 0.79 MG/DL (0.60-1.30) (0.60-1.30) (0.60-1.30) Estimat Glomerular Filtration 122 ML/MIN 118 ML/MIN 115 ML/MIN Rate (>89) (>89) (>89) Random Glucose 134 MG/DL 105 MG/DL 127 MG/DL (74-106) (74-106) (74-106) Calcium Level 7.9 MG/DL 7.8 MG/DL 8.0 MG/DL (8.5-10.1) (8.5-10.1) (8.5-10.1) Phenytoin (Dilantin) Level 13.7 MCG/ML 13.2 MCG/ML (10.0-20.0) (10.0-20.0) Differential Total Cells 100 Counted Neutrophils % (Manual) 76 % (16-70) Band Neutrophils % 2 % (0-6) Lymphocytes % 16 % (9-44) Monocytes % 6 % (0-8) Neutrophils # (Manual) 12.2 TH/MM3 (1.8-7.7) Nucleated Red Blood Cells 1 /100 WBC (0-0) Platelet Estimate NORMAL (NORMAL) Platelet Morphology Comment NORMAL (NORMAL) Red Cell Morphology Comment NORMAL (NORMAL) Hematology Comments Result Diagram: 04/29/1761304/29/1714 Procedures * 04/24/17 -extubation * 04/23/17 -reintubation due to malfunctioning ETT * 04/21/17 -lumbar puncture * 04/18/17 -central line placement * 04/17/17 -endotracheal intubation . Assessment and Plan Disease Oriented Problem List: (1) Acute respiratory failure (2) Encephalopathy (3) Aspiration pneumonia (4) Seizures (5) Acute kidney injury (6) Hypothermia (7) Dementia with behavioral disturbance Symptom Scale: (1) Shortness of breath 0-10 Scale: Unable to quantify Comment: Pneumonia, ventilator dependent respiratory failure. Medically extubated. (2) Debility 0-10 Scale: Unable to quantify Comment: Progressive. Pertinent Non-Medical Issues Psychosocial: The patient was born and raised in [facility]. He was for about 20 years but for many years. He had 4 sons and 2 daughters, one daughter is . Spiritual: No hinduism affiliation. Legal: Power of estate planning attorney completed. Ethical issues impacting care: Patient unable to participate in medical decision -making, not capacitated secondary to dementia. HCP are his children. . Important Contacts Son Chad Rivera Jr who resides in [place] Daughter Suzi Ortiz who resides in the [facility] . . Prognosis Mr. Rivera is a 76 y/o male known to palliative care with a medical history of dementia, atrial fibrillation on anticoagulation, seizures, hypertension, schizophrenia and chronic kidney disease. Clinical course complicated by ventilator dependent respiratory failure, aspiration pneumonia, hypothermia and acute on chronic kidney failure. Patient at a very high risk for further complications, continue decline and . Prognosis is guarded given multiple chronic comorbidities, acute events, physical deconditioning and advanced age. . Code Status: Alternative Code Plan * CODE STATUS: Alt code/intubation only. 04/29/17, discussed again risk, benefits and limitations of intubation and mechanical ventilation with son Chad and daughter Suzi. Family considering DNR/DNI status upon discharge. * HEALTHCARE DECISION-MAKING: Because of the patient's dementia, intubation/ mech vent, he is incapacitated to make his own health care decisions and is not expected to regain capacity. In the absence of advance directives and as per [place] law, proxy decision-making falls to the majority patient's children. His son Chad and daughter Suzi have been appointed during previous acute hospitalization by the other children as co-healthcare proxy decision making ( other children declining to participate in medical decision-making). . * GOALS OF CARE: 04/29/17 -Both son and daughter electing to continue conservative management short of NO cardiac code/intubation only. Family has declined PEG tube placement during past acute admissions. Family wishing to allow time for medical improvement, goal is to return patient to long-term facility. Hospice philosophy and benefits introduced. Discussed continuation of conservative management vs transition patient to comfort-directed care with hospice. Family declined at this time. However, family receptive to hospice should patient's condition continues to worsen, additional complications or further decline. * SYMPTOMS: = Shortness of breath, secondary to ventilator dependent respiratory failure, aspiration pneumonia. Improving, medically extubated on . Tolerating O2 via nasal cannula. = Debility, patient resident of long- term facility. Requiring assistance with all ADLs. Likely to continue to worsen. * Palliative care contact information has been provided to patient's family. * Palliative care will continue to follow-up as needed for further clarifications of goals of care as patient's clinical course continues to evolve. . Time Spent Total Floor Time (mins): 45 (Total time to include review of medical records, physical exam, telephone conversation with patient's son Chad, telephone conversation with patient's daughter Suzi.) >50% Counseling/Coord of Care: Yes Attestation To help prompt me to consider important information that might be impacting today's encounter and assessment, information from prior notes written by myself or my colleagues may have been "brought forward" into today's note. My signature on this note, however, is an attestation that I personally performed the exam, history, and/or decision-making noted today, and, unless otherwise indicated, the interactions with patient, family, and staff as well as the review of records all occurred today. I also attest that the listed assessment and stated plan reflect my best clinical judgment today based on the combination of historical information, prior notes, and today's exam/ interactions. When time spent is documented, it refers only to time spent today by the signer, or if indicated, combined time spent today by collaborating physician/nurse practitioner. Vida Morales Apr 29, 2017 12:26
[2017-04-29] MEDS ORDERED: LISINOPRIL 10 MG TAB PO ONE (13:30)
[2017-04-29] MEDS ORDERED: cloNIDine HCL 0.1 MG TAB PO PRN (13:30)
--- NOTE | 2017-04-29 14:52 | HHI.PR ---
Subjective Remarks Blood pressures and stable today. Blood pressure medications adjusted. Patient is unable to give history and has no new complaints or signs of pain or discomfort. Objective Vital Signs Date Time Temp Pulse Resp B/P Pulse Ox O2 Delivery O2 Flow Rate FiO2 04/29/17 12:22 97 04/29/17 12:00 97.0 82 18 186/86 93 04/29/17 11:19 84 04/29/17 08:17 Room Air 04/29/17 08:00 97.3 83 18 171/70 97 04/29/17 04:20 Nasal Cannula 2.00 04/29/17 04:11 Nasal Cannula 2.00 04/29/17 04:00 97.5 88 18 154/71 94 04/29/17 00:00 Nasal Cannula 2.00 04/29/17 00:00 97.6 84 18 117/74 93 04/28/17 20:14 87 04/28/17 20:00 Nasal Cannula 2.00 04/28/17 20:00 98.1 80 20 179/76 97 04/28/17 16:00 98.0 77 20 129/65 97 I/O 04/28/17 04/28/17 04/28/17 04/29/17 04/29/17 04/29/17 06:59 14:59 22:59 06:59 14:59 22:59 Intake Total 310 ml 482 ml 364 ml 364 ml Output Total 525 ml 800 ml 900 ml Balance -215 ml -318 ml 364 ml -536 ml IV Total 4 ml 4 ml Tube Feeding 310 ml 382 ml 360 ml 360 ml Other 100 ml Output Urine Total 225 ml 400 ml 900 ml Stool Total 300 ml 400 ml Result Diagram: 04/29/1761304/29/17613 Objective Remarks GENERAL: NAD, A&Ox0 HEAD: Normocephalic. NECK: Supple, trachea midline. No lymphadenopathy. EYES: No scleral icterus. No injection or drainage. CARDIOVASCULAR: Regular rate and rhythm without murmurs, gallops, or rubs. RESPIRATORY: Breath sounds equal bilaterally. No accessory muscle use. GASTROINTESTINAL: Abdomen soft, non-tender, nondistended. MUSCULOSKELETAL: No cyanosis, or edema. SKIN: Warm and dry. NEURO: No focal neurological deficitis. A/P Problem List: (1) Debility ICD Code: R53.81 (2) Encephalopathy ICD Code: G93.40 (3) Acute kidney injury ICD Code: N17.9 (4) Dementia with behavioral disturbance ICD Code: F03.91 (5) Seizures ICD Code: R56.9 (6) Aspiration pneumonia ICD Code: J69.0 (7) Hypothermia ICD Code: T68.XXXA (8) Shortness of breath ICD Code: R06.02 Assessment and Plan Assessment and Plan 76-year-old male admitted secondary to sepsis, hypothermia, and pneumonia. Transfer out of ICU 04/28/17. Continue physical therapy as needed. Follow CBC and BMP. Labs ordered. Discontinue Naik. Adjust blood pressure treatments. Lisinopril added 20 g by mouth daily. When necessary clonidine added. Sepsis Hypothermia Resolved Dementia Encephalopathy Global Debility Failure to thrive Palliative care following Respiratory failure Possible Aspiration Extubated 04/24/17 Respiratory status is improving Respiratory status stable for the past 3 days Transfer out of ICU Continue oxygen as needed As needed bronchodilators Aspiration precautions Acute kidney injury Chronic kidney disease Follow renal function Hyperkalemia Resolved Now stable Monitor Acute blood loss anemia Transfuse 1 unit packed red blood cells Follow CBC Transfuse again if needed Avoiding blood thinners for now Adrenal crisis May have been related to septic state of admit Currently on hydrocortisone IV Continue hydrocortisone IV for now Elevated LFTs Follow CMP Hypertension Continue Lopressor Seizure disorder Continue Dilantin Follow Dilantin levels History of A. fib Off blood thinners for now given bleed Follow on telemetry C. difficile colitis Flagyl By mouth vancomycin ID following Diabetes mellitus type 2 Follow blood sugars Insulin sliding scale Hypothyroidism Continue Synthroid 50 g daily DVT prophylaxis Continue SCDs Heparin on hold given anemia and blood transfusion Demarco Middleton MD Apr 29, 2017 14:52
[2017-04-30] VITALS (9 sets, daily range): BP systolic 129–163; BP diastolic 61–76; PULSE 78–91; RESP 16–20; TEMP 98–98.8; O2SAT 94–97
[2017-04-30] MEDS: HYDROCORTISONE SOD SUCCINATE 100 MG VIAL IV PUSH SCH ×4 (01:42→21:58)
[2017-04-30] MEDS: CHLORHEXIDINE GLUCONATE 2 % 1 PACK (2 CLOTHS) TOP SCH (03:00)
[2017-04-30] MEDS: VANCOMYCIN 500 MG VIAL (FOR ORAL USE ONLY) PO SCH ×3 (05:29→16:46)
[2017-04-30] MEDS: LEVOTHYROXINE SODIUM 50 MCG TAB PO SCH (05:29)
[2017-04-30] MEDS: PHENYTOIN INJ 100 MG/2 ML VIAL IV SCH ×3 (05:30→21:59)
[2017-04-30] MEDS: metroNIDAZOLE 500 MG TAB PO SCH ×3 (05:30→21:58)
[2017-04-30] MEDS: METOPROLOL TARTRATE 50 MG TAB PO SCH ×2 (08:41→21:58)
[2017-04-30] MEDS: LACTULOSE SYRUP 20 GM/30 ML CUP PO SCH ×2 (08:41→21:59)
[2017-04-30] MEDS: LISINOPRIL 20 MG TAB PO SCH (08:41)
[2017-04-30] MEDS: PANTOPRAZOLE SODIUM 40 MG VIAL IV SCH ×2 (08:41→21:59)
[2017-04-30] MEDS: DOCUSATE SODIUM 50 MG/SENNA 8.6 MG TAB PO SCH ×2 (08:42→21:58)
--- NOTE | 2017-04-30 14:33 | HHI.PR ---
Subjective Remarks Though he has chronic dementia, Mr. Rivera confusion has improved. He is able to talk out. No reports of pain. Objective Vital Signs Date Time Temp Pulse Resp B/P Pulse Ox O2 Delivery O2 Flow Rate FiO2 04/30/17 12:04 98.0 88 20 129/61 97 04/30/17 12:00 Room Air 04/30/17 10:10 95 04/30/17 08:00 98.3 82 16 142/63 96 04/30/17 08:00 78 04/30/17 08:00 Room Air 04/30/17 04:00 98.4 81 20 129/70 96 04/30/17 04:00 Room Air 04/30/17 00:00 Room Air 04/30/17 00:00 98.0 80 20 163/76 94 04/29/17 20:00 Room Air 04/29/17 20:00 84 04/29/17 20:00 98.1 83 20 135/62 99 04/29/17 19:51 92 21 04/29/17 16:00 98.4 84 18 173/85 95 I/O 04/29/17 04/29/17 04/29/17 04/30/17 04/30/17 04/30/17 07:00 15:00 23:00 07:00 15:00 23:00 Intake Total 364 ml 490 ml 364 ml Output Total 900 ml 750 ml Balance -536 ml -750 ml 490 ml 364 ml Intake Oral 120 ml IV Total 4 ml 8 ml 4 ml Tube Feeding 360 ml 362 ml 360 ml Output Urine Total 900 ml 750 ml Result Diagram: 04/29/17 0614 04/29/17 0614 Objective Remarks GENERAL: NAD, A&Ox0 HEAD: Normocephalic. NECK: Supple, trachea midline. No lymphadenopathy. EYES: No scleral icterus. No injection or drainage. CARDIOVASCULAR: Regular rate and rhythm without murmurs, gallops, or rubs. RESPIRATORY: Breath sounds equal bilaterally. No accessory muscle use. GASTROINTESTINAL: Abdomen soft, non-tender, nondistended. MUSCULOSKELETAL: No cyanosis, or edema. SKIN: Warm and dry. NEURO: No focal neurological deficitis. A/P Problem List: (1) Debility ICD Code: R53.81 (2) Encephalopathy ICD Code: G93.40 (3) Acute kidney injury ICD Code: N17.9 (4) Dementia with behavioral disturbance ICD Code: F03.91 (5) Seizures ICD Code: R56.9 (6) Aspiration pneumonia ICD Code: J69.0 (7) Hypothermia ICD Code: T68.XXXA (8) Shortness of breath ICD Code: R06.02 Assessment and Plan Assessment and Plan 76-year-old male admitted secondary to sepsis, hypothermia, and pneumonia. Transfer out of ICU 04/28/17. Continue physical therapy as needed. Follow CBC and BMP. Labs ordered. Improvement in baseline status. Swallow evaluation ordered. Sepsis Hypothermia Resolved Dementia Encephalopathy Global Debility Failure to thrive Palliative care following Respiratory failure Possible Aspiration Extubated 04/24/17 Respiratory status is improving Respiratory status stable for the past 3 days Transfer out of ICU Continue oxygen as needed As needed bronchodilators Aspiration precautions Acute kidney injury Chronic kidney disease Follow renal function Hyperkalemia Resolved Now stable Monitor Acute blood loss anemia Transfuse 1 unit packed red blood cells Follow CBC Transfuse again if needed Avoiding blood thinners for now Adrenal crisis May have been related to septic state of admit Currently on hydrocortisone IV Continue hydrocortisone IV for now Elevated LFTs Follow CMP Hypertension Continue Lopressor Seizure disorder Continue Dilantin Follow Dilantin levels History of A. fib Off blood thinners for now given bleed Follow on telemetry C. difficile colitis Flagyl By mouth vancomycin ID following Diabetes mellitus type 2 Follow blood sugars Insulin sliding scale Hypothyroidism Continue Synthroid 50 g daily DVT prophylaxis Continue SCDs Heparin on hold given anemia and blood transfusion Demarco Middleton MD Apr 30, 2017 14:33
[2017-05-01] VITALS (8 sets, daily range): BP systolic 113–154; BP diastolic 56–70; PULSE 76–87; RESP 16–18; TEMP 98.3–98.8; O2SAT 94–98
[2017-05-01] MEDS: VANCOMYCIN 500 MG VIAL (FOR ORAL USE ONLY) PO SCH ×4 (01:04→18:08)
[2017-05-01] MEDS: HYDROCORTISONE SOD SUCCINATE 100 MG VIAL IV PUSH SCH ×4 (01:04→21:16)
[2017-05-01] MEDS: CHLORHEXIDINE GLUCONATE 2 % 1 PACK (2 CLOTHS) TOP SCH (01:04)
[2017-05-01] MEDS: LEVOTHYROXINE SODIUM 50 MCG TAB PO SCH (06:16)
[2017-05-01] MEDS: PHENYTOIN INJ 100 MG/2 ML VIAL IV SCH ×3 (06:17→21:16)
[2017-05-01] MEDS: metroNIDAZOLE 500 MG TAB PO SCH ×3 (06:17→21:17)
[2017-05-01] MEDS: METOPROLOL TARTRATE 50 MG TAB PO SCH ×2 (09:56→21:17)
[2017-05-01] MEDS: LISINOPRIL 20 MG TAB PO SCH (09:57)
[2017-05-01] MEDS: DOCUSATE SODIUM 50 MG/SENNA 8.6 MG TAB PO SCH ×2 (09:57→21:17)
[2017-05-01] MEDS: PANTOPRAZOLE SODIUM 40 MG VIAL IV SCH ×2 (09:58→21:17)
[2017-05-01] MEDS: LACTULOSE SYRUP 20 GM/30 ML CUP PO SCH ×2 (10:01→21:16)
--- NOTE | 2017-05-01 13:31 | HHI.PR ---
Subjective Remarks No complaints from patient. He's continuing to demonstrate good by mouth intake. No pain. Objective Vital Signs Date Time Temp Pulse Resp B/P Pulse Ox O2 Delivery O2 Flow Rate FiO2 05/01/17 12:00 98.3 80 18 144/67 98 05/01/17 11:54 Room Air 05/01/17 08:03 98.3 81 18 154/70 96 05/01/17 08:00 Room Air 05/01/17 05:22 98.8 76 16 142/64 95 04/30/17 23:47 98.3 82 16 158/74 95 04/30/17 21:33 98.8 84 16 149/68 95 04/30/17 21:33 Room Air 04/30/17 20:00 91 04/30/17 16:03 98.1 84 20 142/65 95 04/30/17 16:00 Room Air I/O 04/30/17 04/30/17 04/30/17 05/01/17 05/01/17 05/01/17 07:00 15:00 23:00 07:00 15:00 23:00 Intake Total 364 ml 480 ml 240 ml 0 ml Output Total 1600 ml 350 ml Balance 364 ml -1120 ml -110 ml 0 ml Intake Oral 480 ml 240 ml 0 ml IV Total 4 ml Tube Feeding 360 ml Output Urine Total 1600 ml 350 ml # Voids 4 # Bowel Movements 0 0 2 Result Diagram: 04/29/1761304/29/17613 Objective Remarks GENERAL: NAD, A&Ox0 HEAD: Normocephalic. NECK: Supple, trachea midline. No lymphadenopathy. EYES: No scleral icterus. No injection or drainage. CARDIOVASCULAR: Regular rate and rhythm without murmurs, gallops, or rubs. RESPIRATORY: Breath sounds equal bilaterally. No accessory muscle use. GASTROINTESTINAL: Abdomen soft, non-tender, nondistended. MUSCULOSKELETAL: No cyanosis, or edema. SKIN: Warm and dry. NEURO: No focal neurological deficitis. A/P Problem List: (1) Debility ICD Code: R53.81 (2) Encephalopathy ICD Code: G93.40 (3) Acute kidney injury ICD Code: N17.9 (4) Dementia with behavioral disturbance ICD Code: F03.91 (5) Seizures ICD Code: R56.9 (6) Aspiration pneumonia ICD Code: J69.0 (7) Hypothermia ICD Code: T68.XXXA (8) Shortness of breath ICD Code: R06.02 Assessment and Plan Assessment and Plan 76-year-old male admitted secondary to sepsis, hypothermia, and pneumonia. Transfer out of ICU 04/28/17. Continue physical therapy as needed. Follow CBC and BMP. Labs ordered. Improvement in baseline status. Continue diet and monitor for adequate by mouth intake. Sepsis Hypothermia Resolved Dementia Encephalopathy Global Debility Failure to thrive Palliative care following Respiratory failure Possible Aspiration Extubated 04/24/17 Respiratory status is improving Respiratory status stable for the past 3 days Transfer out of ICU Continue oxygen as needed As needed bronchodilators Aspiration precautions Acute kidney injury Chronic kidney disease Follow renal function Hyperkalemia Resolved Now stable Monitor Acute blood loss anemia Transfuse 1 unit packed red blood cells Follow CBC Transfuse again if needed Avoiding blood thinners for now Adrenal crisis May have been related to septic state of admit Currently on hydrocortisone IV Continue hydrocortisone IV for now Elevated LFTs Follow CMP Hypertension Continue Lopressor Seizure disorder Continue Dilantin Follow Dilantin levels History of A. fib Off blood thinners for now given bleed Follow on telemetry C. difficile colitis Flagyl By mouth vancomycin ID following Diabetes mellitus type 2 Follow blood sugars Insulin sliding scale Hypothyroidism Continue Synthroid 50 g daily DVT prophylaxis Continue SCDs Heparin on hold given anemia and blood transfusion Demarco Middleton MD May 01, 2017 13:31
[2017-05-01 14:27] LABS: MEAN CELL VOLUME 95.3 FL (80.0-100.0); MEAN CORPUSCULAR HEMOGLOBIN 32.2 PG (27.0-34.0); MEAN CORPUSCULAR HGB CONC 33.8 % (32.0-36.0); PLATELET COUNT 459 TH/MM3 (150-450); RED BLOOD COUNT 2.62 MIL/MM3 (4.50-5.90); RED CELL DISTRIBUTION WIDTH 19.5 % (11.6-17.2); REVIEW FLAG FINAL; WHITE BLOOD COUNT 9.3 TH/MM3 (4.0-11.0)
[2017-05-01 14:51] LABS: BICARBONATE 30.2 MEQ/L (21.0-32.0); POTASSIUM 3.4 MEQ/L (3.5-5.1)
[2017-05-01 23:53] LABS: HU (NEURONAL NUCLEAR) WESTBLOT NEGATIVE (NEGATIVE); NEURONAL NUCLEAR(Ri) AB SCREEN FLUORESCENCE NOTED (NEGATIVE); PURKINJE CELL (YO) AB FLUORESCENCE NOTED (NEGATIVE); PURKINJE CELL(YO)IGG AB TITER ND titer (<1:40); YO WESTBLOT NEGATIVE (NEGATIVE)
[2017-05-02] MEDS: VANCOMYCIN 500 MG VIAL (FOR ORAL USE ONLY) PO SCH ×5 (01:29→23:19)
[2017-05-02] MEDS: HYDROCORTISONE SOD SUCCINATE 100 MG VIAL IV PUSH SCH ×4 (01:30→20:59)
[2017-05-02] MEDS: CHLORHEXIDINE GLUCONATE 2 % 1 PACK (2 CLOTHS) TOP SCH (01:30)
[2017-05-02 04:30] VITALS: BP 141/65; PULSE 75; RESP 16; TEMP 98; O2SAT 96
[2017-05-02] MEDS: LEVOTHYROXINE SODIUM 50 MCG TAB PO SCH (05:43)
[2017-05-02] MEDS: metroNIDAZOLE 500 MG TAB PO SCH ×3 (05:43→21:00)
[2017-05-02] MEDS: PHENYTOIN INJ 100 MG/2 ML VIAL IV SCH ×3 (05:44→21:00)
[2017-05-02] MEDS ORDERED: POTASSIUM CHLORIDE 10 MEQ CONTROLLED RELEASE TAB PO ONE (07:45)
[2017-05-02 08:00] VITALS: PULSE 78; PULSE 82
[2017-05-02 08:04] VITALS: BP 135/62; PULSE 75; RESP 18; TEMP 98.3; O2SAT 96
[2017-05-02] MEDS: PANTOPRAZOLE SODIUM 40 MG VIAL IV SCH ×2 (09:37→20:59)
[2017-05-02] MEDS: LACTULOSE SYRUP 20 GM/30 ML CUP PO SCH ×2 (09:37→20:59)
[2017-05-02] MEDS: METOPROLOL TARTRATE 50 MG TAB PO SCH ×2 (09:38→21:01)
[2017-05-02] MEDS: DOCUSATE SODIUM 50 MG/SENNA 8.6 MG TAB PO SCH ×2 (09:38→21:01)
[2017-05-02] MEDS: LISINOPRIL 20 MG TAB PO SCH (09:38)
--- NOTE | 2017-05-02 11:29 | HHI.PR ---
Subjective Remarks Continued improvement globally with improving cognition and resolution of diarrhea. No complaints from the patient. Objective Vital Signs Date Time Temp Pulse Resp B/P Pulse Ox O2 Delivery O2 Flow Rate FiO2 05/02/17 08:04 98.3 75 18 135/62 96 05/02/17 04:30 Room Air 05/02/17 04:30 98.0 75 16 141/65 96 05/01/17 23:20 98.3 80 16 114/56 94 05/01/17 21:24 98.5 85 16 113/62 94 05/01/17 20:00 82 05/01/17 16:00 98.8 87 18 144/59 98 05/01/17 13:49 79 05/01/17 12:00 98 05/01/17 12:00 98.3 80 18 144/67 98 05/01/17 11:54 Room Air I/O 05/01/17 05/01/17 05/01/17 05/02/17 05/02/17 05/02/17 07:00 15:00 23:00 07:00 15:00 23:00 Intake Total 0 ml 480 ml 200 ml Output Total 300 ml Balance 0 ml 480 ml -100 ml Intake Oral 0 ml 480 ml 200 ml Output Urine Total 300 ml # Voids 4 2 # Bowel Movements 2 2 0 Result Diagram: 05/01/17 1345 05/01/17 1345 Objective Remarks GENERAL: NAD, A&Ox0 HEAD: Normocephalic. NECK: Supple, trachea midline. No lymphadenopathy. EYES: No scleral icterus. No injection or drainage. CARDIOVASCULAR: Regular rate and rhythm without murmurs, gallops, or rubs. RESPIRATORY: Breath sounds equal bilaterally. No accessory muscle use. GASTROINTESTINAL: Abdomen soft, non-tender, nondistended. MUSCULOSKELETAL: No cyanosis, or edema. SKIN: Warm and dry. NEURO: No focal neurological deficitis. A/P Problem List: (1) Debility ICD Code: R53.81 (2) Encephalopathy ICD Code: G93.40 (3) Acute kidney injury ICD Code: N17.9 (4) Dementia with behavioral disturbance ICD Code: F03.91 (5) Seizures ICD Code: R56.9 (6) Aspiration pneumonia ICD Code: J69.0 (7) Hypothermia ICD Code: T68.XXXA (8) Shortness of breath ICD Code: R06.02 Assessment and Plan Assessment and Plan 76-year-old male admitted secondary to sepsis, hypothermia, and pneumonia. Transfer out of ICU 04/28/17. Continue physical therapy as needed. Repeat C. difficile screen. Patient has had treatment for nearly a week and we'll stop treatment soon if C. difficile is presently negative. Sepsis Hypothermia Resolved Dementia Encephalopathy Global Debility Failure to thrive Palliative care following Respiratory failure Possible Aspiration Extubated 04/24/17 Respiratory status is improving Respiratory status stable for the past 3 days Transfer out of ICU Continue oxygen as needed As needed bronchodilators Aspiration precautions Acute kidney injury Chronic kidney disease Follow renal function Hyperkalemia Resolved Now stable Monitor Acute blood loss anemia Transfuse 1 unit packed red blood cells Follow CBC Transfuse again if needed Avoiding blood thinners for now Adrenal crisis May have been related to septic state of admit Currently on hydrocortisone IV Continue hydrocortisone IV for now Elevated LFTs Follow CMP Hypertension Continue Lopressor Seizure disorder Continue Dilantin Follow Dilantin levels History of A. fib Off blood thinners for now given bleed Follow on telemetry C. difficile colitis Flagyl By mouth vancomycin ID following Diabetes mellitus type 2 Follow blood sugars Insulin sliding scale Hypothyroidism Continue Synthroid 50 g daily DVT prophylaxis Continue SCDs Heparin on hold given anemia and blood transfusion Demarco Middleton MD May 02, 2017 11:29
[2017-05-02 12:25] VITALS: BP 102/54; PULSE 84; RESP 18; TEMP 98.4; O2SAT 94
--- NOTE | 2017-05-02 13:50 | HHI.GIFU ---
GI Follow-up Note Consult Follow-up Subjective: Patient laying in bed comfortably, NGT is out.On puree diet, eating with assistance .No nausea, vomiting .Diarrhea improved . 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 Throat is clear. NECK: Neck is supple, no JVD, no lymphadenopathy. CHEST: Chest is clear to auscultation and percussion. CARDIAC: Regular rate and rhythm with no murmur gallop or rubs. ABDOMEN: Soft, nondistended, nontender; no hepatosplenomegaly; bowel sounds are present in all four quadrants. EXTREMITIES: No clubbing, cyanosis, or edema. SKIN: Normal; no rash; no jaundice. 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 Available Data (labs, X- Rays, Procedues) : Laboratory Tests Test 05/01/17 13:45 White Blood Count 9.3 TH/MM3 Red Blood Count 2.62 MIL/MM3 Hemoglobin 8.4 GM/DL Hematocrit 25.0 % Mean Corpuscular Volume 95.3 FL Mean Corpuscular Hemoglobin 32.2 PG Mean Corpuscular Hemoglobin 33.8 % Concent Red Cell Distribution Width 19.5 % Platelet Count 459 TH/MM3 Mean Platelet Volume 6.6 FL Sodium Level 143 MEQ/L Potassium Level 3.4 MEQ/L Chloride Level 105 MEQ/L Carbon Dioxide Level 30.2 MEQ/L Anion Gap 8 MEQ/L Blood Urea Nitrogen 15 MG/DL Creatinine 0.67 MG/DL Estimat Glomerular Filtration 139 ML/MIN Rate Random Glucose 81 MG/DL Calcium Level 7.9 MG/DL ASSESSMENT/PLAN: anemia multifactorial-no active bleeding, hb stable poor oral intake -improving slowly aMS improving C diff -awaiting repeat stool -no diarrhea at this point -on vanco/flagyl Recommendations speech therapy reevaluation-advance diet as tolerated dietary reevaluation with calorie tray count fu stool studies consider egd/colon when more stable or if active bleeding on emergency It was a pleasure seeing Chad Rivera. Thank you for this consult. Entered by: Jennie Lozano MD May 02, 2017 13:50
[2017-05-02 16:04] VITALS: BP 135/63; PULSE 79; RESP 18; TEMP 99.3; O2SAT 94
[2017-05-02 17:14] LABS: C. DIFF EPI 027 PRESUMPTIVE NEGATIVE (NEGATIVE); C. DIFF TOXIN PCR NEGATIVE (NEGATIVE)
[2017-05-02 20:00] VITALS: BP 129/62; PULSE 78; PULSE 80; RESP 20; TEMP 97.7; O2SAT 97
[2017-05-03] VITALS: BP 130/60; PULSE 73; RESP 18; TEMP 98.1; O2SAT 98
[2017-05-03] MEDS: HYDROCORTISONE SOD SUCCINATE 100 MG VIAL IV PUSH SCH ×2 (01:23→08:31)
[2017-05-03] MEDS: CHLORHEXIDINE GLUCONATE 2 % 1 PACK (2 CLOTHS) TOP SCH (03:50)
[2017-05-03 04:00] VITALS: BP 162/74; PULSE 73; RESP 20; TEMP 98.4; O2SAT 98
[2017-05-03] MEDS: PHENYTOIN INJ 100 MG/2 ML VIAL IV SCH (05:05)
[2017-05-03] MEDS: VANCOMYCIN 500 MG VIAL (FOR ORAL USE ONLY) PO SCH (05:06)
[2017-05-03] MEDS: LEVOTHYROXINE SODIUM 50 MCG TAB PO SCH (05:06)
[2017-05-03] MEDS: metroNIDAZOLE 500 MG TAB PO SCH (05:07)
[2017-05-03 06:15] VITALS: BP 158/72; PULSE 72
[2017-05-03 08:00] VITALS: BP 171/77; PULSE 73; PULSE 74; RESP 18; TEMP 97.9; O2SAT 93
[2017-05-03] MEDS: DOCUSATE SODIUM 50 MG/SENNA 8.6 MG TAB PO SCH (08:30)
[2017-05-03] MEDS: PANTOPRAZOLE SODIUM 40 MG VIAL IV SCH (08:30)
[2017-05-03] MEDS: LACTULOSE SYRUP 20 GM/30 ML CUP PO SCH (08:30)
[2017-05-03] MEDS: METOPROLOL TARTRATE 50 MG TAB PO SCH (08:32)
[2017-05-03] MEDS: LISINOPRIL 20 MG TAB PO SCH (08:32)
--- NOTE | 2017-05-03 10:50 | HHI.DS ---
Discharge Summary Admission Date Apr 17, 2017 at 15:25 Discharge Date: May 03, 2017 Admitting Diagnosis Hypothermia, Sepsis, PNA. (1) Dementia ICD Code: F03.90 Diagnosis: Principal (2) Seizures ICD Code: R56.9 Diagnosis: Principal Procedures None Brief History - From Admission Admit for sepsis CBC/BMP: 05/01/17 1345 05/01/17 1345 Significant Findings Laboratory Tests Test 05/01/17 13:45 Red Blood Count 2.62 MIL/MM3 (4.50-5.90) Hemoglobin 8.4 GM/DL (13.0-17.0) Hematocrit 25.0 % (39.0-51.0) Red Cell Distribution Width 19.5 % (11.6-17.2) Platelet Count 459 TH/MM3 (150-450) Mean Platelet Volume 6.6 FL (7.0-11.0) Potassium Level 3.4 MEQ/L (3.5-5.1) Calcium Level 7.9 MG/DL (8.5-10.1) Hospital Course Mr. Rivera is a 76-year-old male. He was admitted secondary to sepsis secondary to pneumonia (treatments completed). He had hypothermia admitted. Encephalopathy was part of his problem also. He was treated for infection. Has a history of A. fib but was anemic and anticoagulants are held. He might not be a good candidate for long-term anticoagulation so his per Pradaxa will be changed to aspirin daily. Antipsychotics and antidepressants had also been held in ICU and patient's doing well off of these, in fact better than his prior baseline. No symptoms of hepatic encephalopathy. He had C. difficile while here which may have been part of his sepsis. This is treated with by mouth vancomycin and Flagyl. He is now greater than 10 days with treatment as C differential negativity on testing. Treatments have been stopped. Patient medically stable for return to a correction facility. Medically cleared for Discharge today. Pt Condition on Discharge: Stable Discharge Disposition: Discharge to SNF Discharge Time: > 30 minutes Discharge Instructions DIET: Follow Instructions for: As Tolerated, No Restrictions Speech Therapy-Diet Recommends: Soft, Honey Thickened Liquids Activities you can perform: Regular-No Restrictions Follow up Referrals: PCP Follow-up - 2 Weeks Continued Medications: Lactulose Liq (Lactulose Liq) 10 Gm/15 Ml Soln 45 ML PO TID PRN HIGH AMONIA LEVEL Ref 0 ML Levothyroxine (Synthroid) 50 Mcg Tab 50 MCG PO DAILY@0600 Hypothyroidism #30 TAB Metoprolol Tartrate (Metoprolol Tartrate) 50 Mg Tab 50 MG PO BID #60 Ref 0 TAB Phenytoin Liq (Dilantin-125 Liq) 125 Mg/5 Ml Susp 200 MG PO Q12HR Control Seizures #237 Ref 0 ML Discontinued Medications: Acetaminophen (Tylenol) 325 Mg Tab 650 MG PO Q4H PRN DISCOMFORT Ref 0 TAB Atorvastatin (Atorvastatin) 80 Mg Tab 80 MG PO HS Cholesterol Management #30 Ref 0 TAB Dabigatran (Pradaxa) 150 Mg Cap 150 MG PO BID Blood Clot Prevention #60 Ref [address] (Divalproex DR) 250 Mg Tabdr 750 MG PO BID Control Seizures #60 Ref 0 TAB Escitalopram (Lexapro) 10 Mg Tab 10 MG PO DAILY #30 Ref 0 TAB Hydrocodone-Acetaminophen ([place]) 5-325 mg Tab 1 TAB PO Q12HR PRN PAIN Ref 0 TAB Lorazepam (Lorazepam) 1 Mg Tab 1 MG EXTERNAL Q6HR PRN ANXIETY #30 Ref 0 TAB Nitrofurantoin Macrocrystal (Macrodantin) 50 Mg Cap 50 MG PO DAILY Infection Ref 0 CAP Olanzapine (Zyprexa) 10 Mg Tab 10 MG PO HS #30 Ref 0 TAB Trimethoprim (Trimethoprim) 100 Mg Tab 100 MG PO HS Infection #60 Ref 0 TAB Demarco Middleton MD May 03, 2017 10:50
[2017-05-03 13:34] VITALS: BP 126/73; PULSE 67; RESP 18; TEMP 98.3; O2SAT 97
== END 2017-05-03 13:21 | DRG 870 ==
LOC: NEPC 12:02 → NEDA 15:25 → HIMW 17:05 → N04A 04-28 15:58
PROVIDERS: ADMIT Hospitalist; ATTEND Hospitalist
PROC: 0BH17EZ Insertion of Endotracheal Airway into Trachea, Via Natural or Artificial Opening (ICD-10-PCS; principal; 2017-04-17)
PROC: 5A1955Z Respiratory Ventilation, Greater than 96 Consecutive Hours (ICD-10-PCS; 2017-04-17)
PROC: 05H633Z Insertion of Infusion Device into Left Subclavian Vein, Percutaneous Approach (ICD-10-PCS; 2017-04-18)
PROC: 30233N1 Transfusion of Nonautologous Red Blood Cells into Peripheral Vein, Percutaneous Approach (ICD-10-PCS; 2017-04-18)
PROC: 009U3ZX Drainage of Spinal Canal, Percutaneous Approach, Diagnostic (ICD-10-PCS; 2017-04-21)
DX: A41.9 Sepsis, unspecified organism (principal); J69.0 Pneumonitis due to inhalation of food and vomit; J96.00 Acute respiratory failure, unspecified whether with hypoxia or hypercapnia; N17.9 Acute kidney failure, unspecified; G93.41 Metabolic encephalopathy; A04.7 Enterocolitis due to Clostridium difficile; F03.91 Unspecified dementia, unspecified severity, with behavioral disturbance; F20.0 Paranoid schizophrenia; D62 Acute posthemorrhagic anemia; E27.2 Addisonian crisis; E87.5 Hyperkalemia; I48.91 Unspecified atrial fibrillation; G40.909 Epilepsy, unspecified, not intractable, without status epilepticus; F32.9 Major depressive disorder, single episode, unspecified; E03.9 Hypothyroidism, unspecified; F41.9 Anxiety disorder, unspecified; Z79.01 Long term (current) use of anticoagulants; R68.0 Hypothermia, not associated with low environmental temperature; K21.9 Gastro-esophageal reflux disease without esophagitis; R65.20 Severe sepsis without septic shock; M41.9 Scoliosis, unspecified; D50.9 Iron deficiency anemia, unspecified; Z78.1 Physical restraint status; R62.7 Adult failure to thrive; E11.22 Type 2 diabetes mellitus with diabetic chronic kidney disease; I12.9 Hypertensive chronic kidney disease with stage 1 through stage 4 chronic kidney disease, or unspecified chronic kidney disease; N18.9 Chronic kidney disease, unspecified
CPT/HCPCS: 31500; 36430; 36556; 36600; 51702; 62270; 70450; 70544; 70546; 70551; 71010; 71250; 74176; 76700; 76937; 80048; 80053; 80074; 80076; 80164; 80185; 80202; 81001; 82140; 82533; 82550; 82805; 82945; 82948; 83605; 83735; 83873; 83916; 84100; 84132; 84157; 84181; 84439; 84443; 84481; 84484; 85007; 85014; 85018; 85025; 85027; 85610; 85730; 86255; 86403; 86592; 86651; 86652; 86653; 86654; 86703; 86850; 86900; 86901; 86920; 87015; 87040; 87070; 87086; 87102; 87116; 87205; 87206; 87449; 87493; 87497; 87529; 87641; 87799; 88112; 89051; 93005; 94002; 94003; 94640; 94664; 95819; 96365; 96368; A9579; C9113; J0133; J0330; J0456; J0610; J0713; J1100; J1165; J1644; J1720; J1815; J2250; J2543; J2997; J3010; J3370; J3480; J7030; J7042; J7050; J7070; P9016; Q9963

== ENCOUNTER 2017-07-05 20:47 | Inpatient (IN) | payer MEDICARE, MEDICAID ==
[~2017-07-05] VITALS: Ht 180.3 cm; Wt 67.7 kg
[~2017-07-05 20:47] MED LIST changes: -ATOR1TAB18 PO; +DILA125S PO; -DIVA250T PO; -LEXA10TA PO; -LORA1TAB12 EXTERNAL; -NITR50CA27 PO; -PHEN100C PO; -PRAD150C PO; -TRIME100 PO; -TYLE325T PO; -ZYPR10TA PO
[2017-07-05 20:53] VITALS: BP 130/74; PULSE 101; RESP 20; TEMP 98.7; O2SAT 98
[2017-07-05] MEDS ORDERED: PANTOPRAZOLE INJ 80 MG in SODIUM CHLORIDE 0.9% INJ 35 ML IV ONE (21:14)
[2017-07-05] MEDS ORDERED: ONDANSETRON HCL 4 MG/2 ML VIAL IVP ONE (21:15)
[2017-07-05] MEDS ORDERED: SODIUM CHLORIDE 0.9% FLUSH 10 ML FLUSH IVF PRN (21:15)
--- NOTE | 2017-07-05 21:26 | PD ---
HPI Chief Complaint: GI Complaint Time Seen by Provider: 21:19 Travel History International Travel<30 days: No Contact w/Intl Traveler<30days: No Traveled to known affect area: No History of Present Illness HPI 76-year-old male presents to the emergency department by EMS transport from local jail, [facility], for evaluation of coffee-ground emesis noted by the jail staff. No report of black tarry or bloody stools. No report of fever. Nursing staff noted some increased distention of the abdomen without reported complaint of pain or fever. No prior history reportedly of GI bleed. Patient however is prescribed lactulose. On review of jail medical records no report of GI bleed, cirrhosis, esophageal varices, endoscopy reports; patient does have history of dementia and oriented times one, anemia, atrial fibrillation, generalized weakness, hypertension, schizophrenia, hypothyroidism, and seizure disorder. Patient unable to provide any other helpful information. Patient denies pain. Previously on Pradaxa but this medication is not found on his current medication list; it was discontinued 03/2017 admission as patient was not considered a good candidate for anticoagulation. [facility] Past Medical History Narrative Medical Anemia anxiety depression schizophrenia atrial fibrillation dementia high cholesterol hypertension dilantin toxicity seizure disorder anemia previously on Pradaxa Hx Anticoagulant Therapy: Yes (PRADAXA ) Anemia: Yes Anxiety: Yes Depression: Yes Cardiovascular Problems: Yes High Cholesterol: Yes Dementia: Yes Diminished Hearing: No Hypertension: Yes Musculoskeletal: Yes Neurologic: Yes (DYSPHAGIA/COGNITIVE COMMUNICATION DEFICENCY) Psychiatric: Yes Respiratory: Yes Immunizations Current: Yes Schizophrenia: Yes Seizures: Yes Past Surgical History Other Surgery: Yes (UNABLE TO OTAIN) Social History Alcohol Use: No Tobacco Use: No Substance Use: No Allergies-Medications (Allergen,Severity, Reaction): Coded Allergies: *MDRO Multi-Drug Resistant Organism (Verified Adverse Reaction, Unknown, MRSA, 04/19/17) 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 - 06/13/16, 04/17/17 Reported Meds & Prescriptions Reported Meds & Active Scripts Active Synthroid (Levothyroxine Sodium) 50 Mcg Tab 50 Mcg PO DAILY@0600 Reported Dilantin-125 Liq (Phenytoin) 125 Mg/5 Ml Susp 200 Mg PO Q12HR Lactulose Liq (Lactulose) 10 Gm/15 Ml Soln 45 Ml PO TID PRN Metoprolol Tartrate 50 Mg Tab 50 Mg PO BID Review of Systems ROS Limitations: Poor Historian Except as stated in HPI: all other systems reviewed are Neg Cardiovascular: No: Chest Pain or Discomfort Respiratory: No: Shortness of Breath Gastrointestinal: No: Abdominal Pain Musculoskeletal: No: Pain Neurologic: Positive: Weakness Physical Exam Narrative GENERAL: Well-developed well-nourished male in no acute distress no respiratory distress SKIN: Warm and dry. HEAD: Normocephalic. EYES: No scleral icterus. No injection or drainage. Conjunctival pallor. NECK: Supple, trachea midline. No JVD or lymphadenopathy. CARDIOVASCULAR: Regular rate and rhythm without murmurs, gallops, or rubs. RESPIRATORY: Breath sounds equal bilaterally. No accessory muscle use. GASTROINTESTINAL: Abdomen soft, non-tender, mildly distended, nontender to direct palpation no guarding or rebound. Rectal exam: Normal sphincter tone no visualized fissure or prolapsed hemorrhoid brown mucus on exam glove briskly Hemoccult positive no gross blood identified no palpable mass. MUSCULOSKELETAL: No cyanosis, or edema. BACK: Nontender without obvious deformity. No CVA tenderness. Data Data Last Documented VS Vital Signs Date Time Temp Pulse Resp B/P (MAP) Pulse Ox O2 Delivery O2 Flow Rate FiO2 07/06/17 02:00 104 20 140/67 (91) 97 07/05/17 20:53 98.7 Orders Orders Complete Blood Count With Diff (07/05/17 21:14) Comprehensive Metabolic Panel (07/05/17 21:14) Ammonia (07/05/17 21:14) Prothrombin Time / Inr (Pt) (07/05/17 21:14) Act Partial Throm Time (Ptt) (07/05/17 21:14) Urinalysis - C+S If Indicated (07/05/17 21:14) Type And Screen (07/05/17 21:14) Ecg Monitoring (07/05/17 21:14) Iv Access Insert/Monitor (07/05/17 21:14) Oximetry (07/05/17 21:14) Ondansetron Inj (Zofran Inj) (07/05/17 21:15) Sodium Chloride 0.9% Flush (Ns Flush) (07/05/17 21:15) Sodium Chloride 0.9... W/Pantoprazole In (07/05/17 21:14) Sodium Chloride 0.9... W/Pantoprazole In (07/05/17 21:14) Chest, Single Ap (07/05/17 ) Electrocardiogram (07/05/17 ) Phenytoin (Dilantin) (07/05/17 21:26) Ct Abd/Pel W/O Iv Contrast (07/05/17 ) Blood Culture (07/05/17 22:37) Lactic Acid (07/05/17 22:37) Insert Ng Tube (07/05/17 23:33) Place Ng Tube To Low Intermit (07/05/17 23:33) Complete Blood Count With Diff (07/05/17 23:33) Piperacil-Tazo 4.5 Gm Premix (Zosyn 4.5 (07/06/17 00:00) Vancomycin Inj (Vancomycin Inj) (07/06/17 00:00) Blood Culture (07/05/17 23:49) Restraints Non-Violent TAMIKA.Q3H (07/06/17 01:20) Sodium Chlorid 0.9% 500 Ml Inj (Ns 500 M (07/06/17 02:30) Admit Order (Ed Use Only) (07/06/17 ) ^ Saline Lock (07/06/17 02:38) Resp Oxygen Damian C Titrat 1-4 L (07/06/17 ) Notify Dr: Other (07/06/17 02:38) Sodium Chloride 0.9% Flush (Ns Flush) (07/06/17 09:00) Sodium Chloride 0.9% Flush (Ns Flush) (07/06/17 02:45) Labs Laboratory Tests Test 07/05/17 21:50 07/05/17 23:55 07/05/17 23:58 White Blood Count 14.2 TH/MM3 13.2 TH/MM3 Red Blood Count 3.26 MIL/MM3 3.14 MIL/MM3 Hemoglobin 10.1 GM/DL 10.0 GM/DL Hematocrit 31.9 % 30.9 % Mean Corpuscular Volume 97.9 FL 98.6 FL Mean Corpuscular Hemoglobin 31.1 PG 31.8 PG Mean Corpuscular Hemoglobin Concent 31.8 % 32.3 % Red Cell Distribution Width 15.7 % 15.4 % Platelet Count 434 TH/MM3 375 TH/MM3 Mean Platelet Volume 7.6 FL 7.9 FL Neutrophils (%) (Auto) 77.3 % 72.4 % Lymphocytes (%) (Auto) 12.9 % 17.3 % Monocytes (%) (Auto) 8.7 % 8.9 % Eosinophils (%) (Auto) 0.7 % 0.9 % Basophils (%) (Auto) 0.4 % 0.5 % Neutrophils # (Auto) 10.9 TH/MM3 9.6 TH/MM3 Lymphocytes # (Auto) 1.8 TH/MM3 2.3 TH/MM3 Monocytes # (Auto) 1.2 TH/MM3 1.2 TH/MM3 Eosinophils # (Auto) 0.1 TH/MM3 0.1 TH/MM3 Basophils # (Auto) 0.1 TH/MM3 0.1 TH/MM3 CBC Comment DIFF FINAL DIFF FINAL Differential Comment Prothrombin Time 11.9 SEC Prothromb Time International Ratio 1.1 RATIO Activated Partial Thromboplast Time 23.5 SEC Blood Urea Nitrogen 56 MG/DL Creatinine 1.66 MG/DL Random Glucose 147 MG/DL Total Protein 8.7 GM/DL Albumin 3.6 GM/DL Calcium Level 9.1 MG/DL Alkaline Phosphatase 179 U/L Aspartate Amino Transf (AST/SGOT) 22 U/L Alanine Aminotransferase (ALT/SGPT) 32 U/L Total Bilirubin 0.1 MG/DL Sodium Level 144 MEQ/L Potassium Level 4.5 MEQ/L Chloride Level 105 MEQ/L Carbon Dioxide Level 30.7 MEQ/L Anion Gap 8 MEQ/L Estimat Glomerular Filtration Rate 49 ML/MIN Ammonia 35 MCMOL/L Phenytoin (Dilantin) Level 13.9 MCG/ML Lactic Acid Level 2.9 mmol/L [facility] Medical Decision Making Medical Screen Exam Complete: Yes Emergency Medical Condition: Yes Medical Record Reviewed: Yes Interpretation(s) CBC & BMP Diagram 07/05/17 21:50 Total Protein 8.7 H, Albumin 3.6, Calcium Level 9.1, Alkaline Phosphatase 179 H , Aspartate Amino Transf (AST/SGOT) 22, Alanine Aminotransferase (ALT/SGPT) 32, Total Bilirubin 0.1 L Vital Signs Date Time Temp Pulse Resp B/P (MAP) Pulse Ox O2 Delivery O2 Flow Rate FiO2 07/05/17 20:53 98.7 101 20 130/74 (92) 98 Differential Diagnosis Gastritis, upper GI bleed, bowel obstruction, cirrhosis, anemia, renal insufficiency, viscus perforation Narrative Course Patient placed on satellite project site monitor and pulse oximetry; chest x-ray confirmed no evidence of subdiaphragmatic free air: Patient administered Protonix bolus and infusion for upper GI bleed Hemoglobin 10.8 Blood pressure remains stable Atrial fibrillation with controlled ventricular rate BUN/creatinine elevated ratio greater than 30 to 1 for upper GI bleed/gastritis Patient has returned from CT and sure thereafter copious amounts of dark emesis concerning for possible feculent emesis with coffee-ground emesis. Approximately 1 L of volume on bedding and on the floor; nasogastric tube ordered Patient with ongoing vomiting and NG tube placed successfully to intermittent low wall suction attempt at multiple peripheral sides performed by nursing and myself as well as external jugular without success; attempt at right femoral vein catheterization performed with and without ultrasound assistance without and inability to cannulate vessel. Patient does have 2 peripheral IVs. Patient's case discussed with on-call air hose coupler regarding need for admission to ICU in view of bowel obstruction possible GI bleed with inflammation/gastritis and risk for respiratory failure as concern for possible small amount of aspiration during copious episodes of vomiting. Patient also noted on chest x-ray to have no free subdiaphragmatic free air visible area of left lobar infiltrate of concern per reading radiologist. Distal small bowel obstruction by CT imaging Blood cultures obtained and patient administered IV antibiotics for possible left lower lobe infiltrate concern for aspiration of stomach/intestinal contents with small bowel obstruction. Critical Care Narrative Aggregate critical care time was 30 minutes. Time to perform other separately billable procedures was not included in the critical care time. My time did not include minutes spent treating any other patients simultaneously or on activities that did not directly contribute to the patient's treatment. The services I provided to this patient were to treat and/or prevent clinically significant deterioration that could result in: Respiratory failure, sepsis, I provided critical care services requiring my management, as noted below: Chart data review, documentation time, medication orders and management, vital sign assessments/reviewing monitor data, ordering and reviewing lab tests, ordering and interpreting/reviewing x-rays and diagnostic studies, care of the patient and discussion of the patient with the admitting physicians. Procedures EKG Prior to Arrival: No HemaPrompt Point of Care Internal Pos. & Neg. Controls: Passed Fecal Specimen Occult Blood: Positive Sepsis Criteria SIRS Criteria (2 or more): Heart rate over 90, WBC > 71747, < 4000 or > 10% bands Sepsis Criteria (SIRS+source): Infect source susp/known (possible LLL ifiltrtae v atelectasis) Physician Communication Physician Communication discussed with air hose coupler Dr Patton will admit to their service; discussed with gen surg --will consult as needed Diagnosis Primary Impression: GI bleed Additional Impressions: SBO (small bowel obstruction) SIRS (systemic inflammatory response syndrome) Admitting Information Admitting Physician Requests: Admit Cindy Dumont MD Jul 05, 2017 21:26
--- NOTE | 2017-07-05 21:46 | RADRPT ---
EXAM DATE/TIME: 07/05/2017 21:26 [facility] COMPARISON: CHEST SINGLE AP, April 23, 2017, 16:14. INDICATIONS : Vomiting MEDICAL HISTORY : Hypertension. Diabetes mellitus type 1. Seizures. A-fib SURGICAL HISTORY : None. ENCOUNTER: Initial ACUITY: 1 day PAIN SCORE: Non-responsive. LOCATION: chest FINDINGS: The cardiac silhouette is enlarged in transverse diameter. The lungs are hypoinflated. There is left lower lobe atelectasis versus pneumonia. The right lung is free of acute parenchymal opacity. CONCLUSION: 1. Cardiomegaly 2. Left lower lobe atelectasis versus pneumonia. Mukul Moralez MD on July 05, 2017 at 21:44 Board Certified Radiologist. This report was verified electronically.
[2017-07-05 22:21] LABS: AUTOMATED NEUTROPHIL # 10.9 TH/MM3 (1.8-7.7); BASOPHIL # 0.1 TH/MM3 (0-0.2); BASOPHIL % 0.4 % (0.0-2.0); EOSINOPHIL # 0.1 TH/MM3 (0-0.4); EOSINOPHIL % 0.7 % (0.0-4.0); HEMATOCRIT 31.9 % (39.0-51.0); HEMO FLAGS DIFF FINAL; LYMPH % 12.9 % (9.0-44.0); LYMPHOCYTE # 1.8 TH/MM3 (1.0-4.8); MEAN CELL VOLUME 97.9 FL (80.0-100.0); MEAN CORPUSCULAR HEMOGLOBIN 31.1 PG (27.0-34.0); MEAN CORPUSCULAR HGB CONC 31.8 % (32.0-36.0); MONO % 8.7 % (0.0-8.0); NEUT % 77.3 % (16.0-70.0); PLATELET COUNT 434 TH/MM3 (150-450); RED BLOOD COUNT 3.26 MIL/MM3 (4.50-5.90); RED CELL DISTRIBUTION WIDTH 15.7 % (11.6-17.2); WHITE BLOOD COUNT 14.2 TH/MM3 (4.0-11.0)
[2017-07-05 22:33] LABS: ALT (GPT) 32 U/L (12-78); ANION GAP 8 MEQ/L (5-15); AST (GOT) 22 U/L (15-37); BICARBONATE 30.7 MEQ/L (21.0-32.0); BLOOD UREA NITROGEN 56 MG/DL (7-18); CHLORIDE 105 MEQ/L (98-107); GLOMERULAR FILTRATION RATE 49 ML/MIN (>89); POTASSIUM 4.5 MEQ/L (3.5-5.1); SODIUM (NA) 144 MEQ/L (136-145)
[2017-07-05 22:35] LABS: ALKALINE PHOSPHATASE 179 U/L (45-117); TOTAL BILIRUBIN ADULT 0.1 MG/DL (0.2-1.0)
[2017-07-05 22:39] LABS: APTT (PATIENT) 23.5 SEC (24.3-30.1); INTERNATIONAL NORMALIZED RATIO 1.1 RATIO; PROTHROMBIN TIME - PATIENT 11.9 SEC (9.8-11.6)
[2017-07-05 23:00] VITALS: BP 121/67; PULSE 108; RESP 20; O2SAT 97
[2017-07-05] MEDS: PANTOPRAZOLE INJ 80 MG in SODIUM CHLORIDE 0.9% INJ 100 ML IV SCH (23:26)
--- NOTE | 2017-07-05 23:48 | RADRPT ---
EXAM DATE/TIME: 07/05/2017 23:20 [facility] COMPARISON: No previous studies available for comparison. INDICATIONS : Nausea and vomiting with distention. ORAL CONTRAST: Partial prescribed oral contrast ingested. RADIATION DOSE: 6.54 CTDIvol (mGy) MEDICAL HISTORY : Seizures. Cardiovascular disease Gastroesophageal reflux disease.DVT. Hypertension. SURGICAL HISTORY : Left hip replacement. ENCOUNTER: Initial ACUITY: 1 day PAIN SCALE: 0/10 LOCATION: Bilateral abdomen TECHNIQUE: Volumetric scanning of the abdomen and pelvis was performed. Using automated exposure control and ad justment of the mA and/or kV according to patient size, radiation dose was kept as low as reasonably achievable to obtain optimal diagnostic quality images. DICOM format image data is available electro nically for review and comparison. FINDINGS: LOWER LUNGS: Mild fibrotic change and scarring in the posterior lung bases. LIVER: Homogeneous density without lesion. There is no dilation of the biliary tree. No calcified gallston es. SPLEEN: Normal size without lesion. PANCREAS: Within normal limits. KIDNEYS: Large upper pole left renal cysts. No evidence of hydronephrosis or stone ADRENAL GLANDS: Within normal limits. VASCULAR: Dense atherosclerotic calcifications. No aneurysm. BOWEL/MESENTERY: Markedly dilated stomach. Prominently dilated small bowel to the level of the distal ileum with a tra nsition in the right lower quadrant. Colon is normal in caliber. No discrete mass is identified. ABDOMINAL WALL: Within normal limits. RETROPERITONEUM: There is no lymphadenopathy. BLADDER: No wall thickening or mass. REPRODUCTIVE: Within normal limits. INGUINAL: There is no lymphadenopathy or hernia. MUSCULOSKELETAL: Left total hip arthroplasty. Degenerative changes in the spine. CONCLUSION: Distal small bowel obstruction Boubacar Pearl MD on July 05, 2017 at 23:41 Board Certified Radiologist. This report was verified electronically.
[2017-07-06] VITALS (25 sets, daily range): BP systolic 110–162; BP diastolic 56–71; PULSE 72–112; RESP 12–26; TEMP 98–98.4; O2SAT 6–100
[2017-07-06] MEDS ORDERED: VANCOMYCIN INJ 1,000 MG in SODIUM CHLOR 0.9% 250 ML INJ 250 ML IV ONE ×2
[2017-07-06] MEDS ORDERED: PIPERACIL-TAZO 4.5 GM PREMIX 100 ML IV ONE
[2017-07-06 00:34] LABS: AUTOMATED NEUTROPHIL # 9.6 TH/MM3 (1.8-7.7); BASOPHIL # 0.1 TH/MM3 (0-0.2); BASOPHIL % 0.5 % (0.0-2.0); EOSINOPHIL # 0.1 TH/MM3 (0-0.4); EOSINOPHIL % 0.9 % (0.0-4.0); HEMATOCRIT 30.9 % (39.0-51.0); HEMO FLAGS DIFF FINAL; LYMPH % 17.3 % (9.0-44.0); LYMPHOCYTE # 2.3 TH/MM3 (1.0-4.8); MEAN CELL VOLUME 98.6 FL (80.0-100.0); MEAN CORPUSCULAR HEMOGLOBIN 31.8 PG (27.0-34.0); MEAN CORPUSCULAR HGB CONC 32.3 % (32.0-36.0); MONO % 8.9 % (0.0-8.0); NEUT % 72.4 % (16.0-70.0); PLATELET COUNT 375 TH/MM3 (150-450); RED BLOOD COUNT 3.14 MIL/MM3 (4.50-5.90); RED CELL DISTRIBUTION WIDTH 15.4 % (11.6-17.2); WHITE BLOOD COUNT 13.2 TH/MM3 (4.0-11.0)
--- NOTE | 2017-07-06 02:00 | HHI.HP ---
[facility] Service Critical Care Medicine Primary Care Physician Unknown Admission Diagnosis Diagnosis: Travel History International Travel<30 Days: No Contact w/Intl Traveler <30 Da: No Traveled to Known Affected Are: No Sepsis Criteria SIRS Criteria (2 or more): Heart rate over 90, WBC > 58696, < 4000 or > 10% bands Severe Sepsis (+one): Organ Dysfunction, Lactate >2 History of Present Illness 76-year-old male with past medical history of dementia, hypertension, schizophrenia, hyperlipidemia, atrial fibrillation (no longer on anticoagulation is felt not to be a good candidate) who resides in a [place]. He presents to [facility] emergency department because nurses noted coffee ground emesis. No melena or BRBPR. He is a poor historian, not speaking at all.Reportedly no h/o GI bleeding. He is on an NSAID since at least 05/24/17. Hgb is 10 and WBC is 14.2. CT abd/pelvis demonstrates large gastric distension and small bowel obstruction. He vomited in the ED large amount of coffee ground emesis and then NGT was inserted and had 1 L of coffee ground output upon insertion. Stool was brown and heme positive per Dr. Dumont. He is afebrile, tachycardic 100-106, MAP 80s to 90s. He received Zosyn, Vancomycin and Protonix drip in the ED. ED physician attempted femoral line unsuccessfully. I do not see any abdominal surgical scars. Review of Systems ROS Limitations: Clinical Condition, Altered Mental Status, Uncooperative Past Family Social History Allergies: Coded Allergies: *MDRO Multi-Drug Resistant Organism (Verified Adverse Reaction, Unknown, MRSA, 04/19/17) 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 - 06/13/16, 04/17/17 Past Medical History Dementia Diagnosed about 2 years ago and has been worsening over the last year per his son. Atrial fibrillation Anemia Hypertension Schizophrenia Seizure disorder Hypothyroidism Hyperlipidemia Hypothyroidism Past Surgical History Left hip surgery Reported Medications Ativan gel 1 mg topical every 6 hours as needed for agitation Lactulose 45 ML's by mouth 3 times a day Melatonin 3 mg by mouth daily at bedtime Meloxicam 7.5 mg by mouth daily Metoprolol 50 mg by mouth twice a day Multivitamin one by mouth daily Hydrocortisone/8 5/325 one by mouth daily Dilantin 200 mg at 09 and 2100, 100 mg at 1200 Synthroid 50 g by mouth daily Zyprexa 2.5 mg by mouth daily at bedtime Family History No family history of malignancy per son. Mother had DM and heart disease. Multiple siblings with dementia. Social History Resident of [facility] and [facility]. Son states he has been nonambulatory since a fall that occurred at rehab about 4-5 years ago. Uses a wheelchair. His son lives in [place], [facility] who is his healthcare proxy. His daughter Suzi is also a proxy. Physical Exam Vital Signs Vital Signs Date Time Temp Pulse Resp B/P (MAP) Pulse Ox O2 Delivery O2 Flow Rate FiO2 07/05/17 20:53 98.7 101 20 130/74 (92) 98 Physical Exam GENERAL: Elderly male who is laying in ED stretcher. Makes eye contact, mumbles incomprehensibly. SKIN: Warm and dry. HEAD: Atraumatic. Normocephalic. EYES: Pupils equal and round, 2mm and reactive bilaterally. No scleral icterus. No injection or drainage. ENT: NGT in left nare with brown/coffee ground output. NECK: Trachea midline. No JVD. CARDIOVASCULAR: Tachycardic, regular and sinus tach on the monitor. 3/6 systolic murmur LLSB . RESPIRATORY: Clear to auscultation. Breath sounds equal bilaterally. SAts 99% on RA. GASTROINTESTINAL: Abdomen mildly distended but nontender, soft. Bowel sounds present. MUSCULOSKELETAL: Extremities without clubbing, cyanosis, or edema. Lower extremities contracted. NEUROLOGICAL: Awake and alert, makes eye contact and moves extremities spontaneously. . Mouth movements that appear c/w tardive dyskinesia. Mumbles incomprensibly. Does not follow commands. Laboratory Laboratory Tests Test 07/05/17 21:50 07/05/17 23:55 07/05/17 23:58 White Blood Count 14.2 13.2 Red Blood Count 3.26 3.14 Hemoglobin 10.1 10.0 Hematocrit 31.9 30.9 Mean Corpuscular Volume 97.9 98.6 Mean Corpuscular Hemoglobin 31.1 31.8 Mean Corpuscular Hemoglobin Concent 31.8 32.3 Red Cell Distribution Width 15.7 15.4 Platelet Count 434 375 Mean Platelet Volume 7.6 7.9 Neutrophils (%) (Auto) 77.3 72.4 Lymphocytes (%) (Auto) 12.9 17.3 Monocytes (%) (Auto) 8.7 8.9 Eosinophils (%) (Auto) 0.7 0.9 Basophils (%) (Auto) 0.4 0.5 Neutrophils # (Auto) 10.9 9.6 Lymphocytes # (Auto) 1.8 2.3 Monocytes # (Auto) 1.2 1.2 Eosinophils # (Auto) 0.1 0.1 Basophils # (Auto) 0.1 0.1 CBC Comment DIFF FINAL DIFF FINAL Differential Comment Prothrombin Time 11.9 Prothromb Time International Ratio 1.1 Activated Partial Thromboplast Time 23.5 Blood Urea Nitrogen 56 Creatinine 1.66 Random Glucose 147 Total Protein 8.7 Albumin 3.6 Calcium Level 9.1 Alkaline Phosphatase 179 Aspartate Amino Transf (AST/SGOT) 22 Alanine Aminotransferase (ALT/SGPT) 32 Total Bilirubin 0.1 Sodium Level 144 Potassium Level 4.5 Chloride Level 105 Carbon Dioxide Level 30.7 Anion Gap 8 Estimat Glomerular Filtration Rate 49 Ammonia 35 Phenytoin (Dilantin) Level 13.9 Lactic Acid Level 2.9 Date/Time Source Procedure Growth Status 07/05/17 23:55 Blood Peripheral Aerobic Blood Culture Pending Received 07/05/17 23:55 Blood Peripheral Anaerobic Blood Culture Pending Received Result Diagram: 07/05/17 8694 07/05/17 2150 Caprini VTE Risk Assessment Caprini VTE Risk Assessment: Mod/High Risk (score >= 2) Caprini Risk Assessment Model Point Value = 1 Point Value = 2 Point Value = 3 Point Value = 5 Age 41-60 Minor surgery BMI > 25 kg/m2 Swollen legs Varicose veins or History of unexplained or recurrent spontaneous Oral contraceptives or hormone replacement Sepsis (< 1 month) Serious lung disease, including pneumonia (< 1 month) Abnormal pulmonary function Acute myocardial infarction Congestive heart failure (< 1 month) History of inflammatory bowel disease Medical patient at bed rest Age 61-74 Arthroscopic surgery Major open surgery (> 45 min) Laparoscopic surgery (> 45 min) Malignancy Confined to bed (> 72 hours) Immobilizing plaster cast Central venous access Age >= 75 History of VTE Family history of VTE Factor V Leiden Prothrombin [id number] Lupus anticoagulant Anticardiolipin antibodies Elevated serum homocysteine Heparin-induced thrombocytopenia Other congenital or acquired thrombophilia Stroke (< 1 month) Elective arthroplasty Hip, pelvis, or leg fracture Acute spinal cord injury (< 1 month) Prophylaxis Regimen Total Risk Factor Score Risk Level Prophylaxis Regimen 0-1 Low Early ambulation 2 Moderate Order ONE of the following: *Sequential Compression Device (SCD) *Heparin 5000 units SQ BID 3-4 Higher Order ONE of the following medications: *Heparin 5000 units SQ TID *Enoxaparin/Lovenox 40 mg SQ daily (WT < 150 kg, CrCl > 30 mL/min) *Enoxaparin/Lovenox 30 mg SQ daily (WT < 150 kg, CrCl > 10-29 mL/min) *Enoxaparin/Lovenox 30 mg SQ BID (WT < 150 kg, CrCl > 30 mL/min) AND/OR *Sequential Compression Device (SCD) 5 or more Highest Order ONE of the following medications: *Heparin 5000 units SQ TID (Preferred with Epidurals) *Enoxaparin/Lovenox 40 mg SQ daily (WT < 150 kg, CrCl > 30 mL/min) *Enoxaparin/Lovenox 30 mg SQ daily (WT < 150 kg, CrCl > 10-29 mL/min) *Enoxaparin/Lovenox 30 mg SQ BID (WT < 150 kg, CrCl > 30 mL/min) AND *Sequential Compression Device (SCD) Assessment and Plan Assessment and Plan NEURO: Dementia Schizophrenia Seizures disorder Anxiety h/o hyperammonemia Hold ativan gel. Dilantin level is 13.9. Continue Dilantin 200 mg IV q12 and 100 mg IV at noon. Hold zyprexa for now. Hold NSAIDs due to acute kidney injury and GI bleeding. RESP: RA. Scarring in bilateral lung bases noted on CT. CV: Paroxysmal Atrial fibrillation Hypertension Lactic acidemia Hold metoprolol currently due to concern for GI bleeding. Normal saline 500 ml IV bolus and then D5 LR @ 125 ml/hr. GI: Gastric distension and SBO UGI bleeding Nothing by mouth. NG tube to low intermittent wall suction. Protonix drip initiated in the ED will continue. Reglan 5 g IV every 8 hours. Serial hemoglobin every 6 hours. Gastroenterology consult. FEN/RENAL: Acute kidney injury Naik in place monitor intake and output. Monitor electrolytes and replace as indicated. ID: Leukocytosis, lactic acidemia may represent SIRS response to GI bleeding. Sepsis appears less likely but cannot be ruled out at this time. Received Zosyn and vancomycin in the ED. Blood cultures have been obtained. We 'll obtain urinalysis and culture. Cover with Zosyn 3.375 IV q6 for possible GI translocation and followup cultures. HEME: Anemia Has chronic anemia and now with acute blood loss. Followup Hgb q6 hours. Transfuse as needed for Hgb <7. Type and Screen. ENDO: Hypothyroidism Synthyroid 25 mcg IV daily PROPH: SCD for DVT prophylaxis. Pharmacologic DVT prophylaxis contraindicated in setting of concern for GI bleeding. Protonix drip. ACCESS: Peripheral IV is in place. He will need additional peripheral IV access , consult vascular access team.. Patient discussed with Mercedez Sadler. I called patient's son Mg Rivera who lives in [place] and is his healthcare proxy. His sister Suzi is also proxy. Patient has advancing dementia and now with GI bleeding and SBO and risk for further decompensation. Mg states " as of now we would want him to be intubated and FULL CODE unless he is basically brain ". He does state that he has limited understanding of his father's medical condition because he lives out of state. Will consult palliative care to facilitate understanding and address goals of care going forward during this hospitalization. Level 3 H and P Marianna Patton MD Jul 06, 2017 02:00
[2017-07-06] MEDS ORDERED: SODIUM CHLORID 0.9% 500 ML INJ 500 ML IV ONE (02:30)
[2017-07-06] MEDS ORDERED: SODIUM CHLORIDE 0.9% FLUSH 10 ML FLUSH IVF PRN (02:45)
[2017-07-06] MEDS ORDERED: ONDANSETRON HCL 4 MG/2 ML VIAL IV PUSH PRN (07:15)
[2017-07-06] MEDS ORDERED: MAGNESIUM HYDROXIDE SUSP 30 ML CUP PO PRN (07:15)
[2017-07-06] MEDS ORDERED: BISACODYL 10 MG SUPP RECTAL PRN (07:15)
[2017-07-06] MEDS ORDERED: LACTULOSE SYRUP 20 GM/30 ML CUP PO PRN (07:15)
[2017-07-06] MEDS ORDERED: MISCELLANEOUS NURSING INFORMATION XX SCH (07:15)
[2017-07-06] MEDS ORDERED: CHLORHEXIDINE GLUCONATE 2 % 1 PACK (2 CLOTHS) TOP PRN (07:15)
[2017-07-06] MEDS ORDERED: SENNOSIDES 8.6 MG TAB PO PRN (07:15)
[2017-07-06] MEDS ORDERED: SODIUM CHLORIDE 0.9% FLUSH 10 ML FLUSH IV FLUSH PRN (07:15)
[2017-07-06] MEDS ORDERED: RESP: ALBUTEROL 2.5 MG/3 ML NEB (PRN) INH (07:15)
[2017-07-06] MEDS ORDERED: MELO7.5T4 PO (07:27)
[2017-07-06] MEDS ORDERED: NORC5TAB PO (07:27)
[2017-07-06] MEDS ORDERED: MELA5TAB15 PO (07:27)
[2017-07-06] MEDS ORDERED: MULTIVITAMIN PO (07:27)
[2017-07-06] MEDS ORDERED: PHEN125S PO (07:27)
[2017-07-06] MEDS ORDERED: ZYPR2.5T2 PO (07:27)
[2017-07-06] MEDS ORDERED: ATIVAN TOPICAL (07:27)
[2017-07-06 08:46] LABS: HEMATOCRIT 25.5 % (39.0-51.0); MEAN CORPUSCULAR HEMOGLOBIN 31.2 PG (27.0-34.0); MEAN CORPUSCULAR HGB CONC 32.2 % (32.0-36.0); PLATELET COUNT 308 TH/MM3 (150-450); RED BLOOD COUNT 2.63 MIL/MM3 (4.50-5.90); RED CELL DISTRIBUTION WIDTH 15.5 % (11.6-17.2); REVIEW FLAG FINAL; WHITE BLOOD COUNT 12.5 TH/MM3 (4.0-11.0)
--- NOTE | 2017-07-06 08:46 | PD.CONS ---
HPI History of Present Illness This is a 76 year old with a past medical history of schizophrenia, dementia, atrial fibrillation, anxiety, depression, hypothyroidism, hyperlipidemia, hypertension, seizure disorder, iron deficiency, who was brought to the emergency room from a local nursing facility for evaluation of coffee ground emesis. The patient is lethargic and confused and unable to provide any history. The nurse reports that overnight, he had projectile vomiting with coffee ground emesis. He denies any abdominal pain, but does have mild diffuse abdominal tenderness on exam. He was noted to have a brown stool early this am - no obvious blood noted. He currently has an NGT to low intermittent wall suction and this is draining a moderate to large amount of dark bilious material. It appears almost black in container, but the gastric drainage in the tumor is a dimas/dark greenish color. He denies any history of past surgeries and I did not see any scars on his abdomen. Of note, he has been taking lactulose at the senior care for a high ammonia level, although there is no record of any history of liver cirrhosis, varices, or prior GI bleeding. CT scan abdomen and pelvis (07/05/17)----> distal small bowel obstruction with marked dilated stomach, prominently dilated small bowel to the level of the distal ileum with a transition point in the right lower quadrant, colon is normal in caliber, no discrete masses. He was hospitalized in April of 2017 and noted to have a H/H of 7.4-8.4. On admission, he was noted to have an HH of 10.1/31.9 and repeat a few hours later was 10.0/30.9. There is no javad red bleeding. 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 - 06/13/16, 04/17/17 Medications Allergies Coded Allergies Type Severity Reaction Last Updated Verified *MDRO Multi-Drug Resistant Organism Adverse Reaction Unknown MRSA 04/19/17 Yes Active Scripts Medications Dose Route/Sig Max Daily Dose Days Date Category [multivitamin-M] 1 Tab PO DAILY 07/06/17 Reported [place] (Hydrocodone-Acetaminophen) 5-325 mg Tab 1 Tab PO Q12HR PRN 07/06/17 Reported Meloxicam 7.5 Mg Tab 7.5 Mg PO DAILY 07/06/17 Reported Melatonin 5 Mg Tab 3 Mg PO HS 07/06/17 Reported [ativan gel] 1 Mg TOPICAL Q6HR PRN 07/06/17 Reported Zyprexa (Olanzapine) 2.5 Mg Tab 2.5 Mg PO HS 07/06/17 Reported Phenytoin Liq (Phenytoin) 125 Mg/5 Ml Rehana 100 Mg PO DAILY 07/06/17 Reported Dilantin-125 Liq (Phenytoin) 125 Mg/5 Ml Susp 200 Mg PO Q12HR 04/17/17 Reported Synthroid (Levothyroxine Sodium) 50 Mcg Tab 50 Mcg PO DAILY@0600 03/10/17 Rx Lactulose Liq (Lactulose) 10 Gm/15 Ml Soln 45 Ml PO TID PRN 11/12/16 Reported Metoprolol Tartrate 50 Mg Tab 50 Mg PO BID 11/12/16 Reported Family History Unable to obtain Social History Resides in a senior care Unable to obtain (Mercedez Sadler) Review of Systems ROS Unable to obtain (Mercedez Sadler) GI Exam Vitals I&O Vital Signs Date Time Temp Pulse Resp B/P (MAP) Pulse Ox O2 Delivery O2 Flow Rate FiO2 07/06/17 07:30 100 16 120/61 (80) 97 Room Air 2.20 07/06/17 06:30 100 12 118/62 (80) 98 Room Air 07/06/17 05:15 106 16 124/65 (84) 07/06/17 05:00 102 17 112/57 (75) 07/06/17 04:15 72 22 162/ 6 Nasal Cannula 2.20 07/06/17 04:00 119/64 (82) 07/06/17 03:12 98 07/06/17 03:00 112 20 128/66 (86) 97 07/06/17 02:00 104 20 140/67 (91) 97 07/06/17 01:00 102 20 133/71 (91) 97 07/06/17 00:00 100 20 138/70 (92) 96 07/05/17 23:00 108 20 121/67 (85) 97 07/05/17 20:53 98.7 101 20 130/74 (92) 98 I/O 07/05/17 07/05/17 07/05/17 07/06/17 07/06/17 07/06/17 07:00 15:00 23:00 07:00 15:00 23:00 Intake Total 145 ml Output Total 30 ml Balance -30 ml 145 ml Intake IV Total 145 ml Output Emesis 30 ml Imaging Last Impressions Chest X-Ray 07/05/17 0000 Signed Impressions: Service Date/Time: Wednesday, July 05, 2017 21:26 - CONCLUSION: 1. Cardiomegaly 2. Left lower lobe atelectasis versus pneumonia. Mukul Moralez MD Abdomen/Pelvis CT 07/05/17 0000 Signed Impressions: Service Date/Time: Wednesday, July 05, 2017 23:20 - CONCLUSION: Distal small bowel obstruction Boubacar Pearl MD Laboratory Test 07/05/17 21:50 07/05/17 23:55 07/05/17 23:58 White Blood Count 14.2 TH/MM3 13.2 TH/MM3 Red Blood Count 3.26 MIL/MM3 3.14 MIL/MM3 Hemoglobin 10.1 GM/DL 10.0 GM/DL Hematocrit 31.9 % 30.9 % Mean Corpuscular Volume 97.9 FL 98.6 FL Mean Corpuscular Hemoglobin 31.1 PG 31.8 PG Mean Corpuscular Hemoglobin Concent 31.8 % 32.3 % Red Cell Distribution Width 15.7 % 15.4 % Platelet Count 434 TH/MM3 375 TH/MM3 Mean Platelet Volume 7.6 FL 7.9 FL Neutrophils (%) (Auto) 77.3 % 72.4 % Lymphocytes (%) (Auto) 12.9 % 17.3 % Monocytes (%) (Auto) 8.7 % 8.9 % Eosinophils (%) (Auto) 0.7 % 0.9 % Basophils (%) (Auto) 0.4 % 0.5 % Neutrophils # (Auto) 10.9 TH/MM3 9.6 TH/MM3 Lymphocytes # (Auto) 1.8 TH/MM3 2.3 TH/MM3 Monocytes # (Auto) 1.2 TH/MM3 1.2 TH/MM3 Eosinophils # (Auto) 0.1 TH/MM3 0.1 TH/MM3 Basophils # (Auto) 0.1 TH/MM3 0.1 TH/MM3 CBC Comment DIFF FINAL DIFF FINAL Differential Comment Prothrombin Time 11.9 SEC Prothromb Time International Ratio 1.1 RATIO Activated Partial Thromboplast Time 23.5 SEC Blood Urea Nitrogen 56 MG/DL Creatinine 1.66 MG/DL Random Glucose 147 MG/DL Total Protein 8.7 GM/DL Albumin 3.6 GM/DL Calcium Level 9.1 MG/DL Alkaline Phosphatase 179 U/L Aspartate Amino Transf (AST/SGOT) 22 U/L Alanine Aminotransferase (ALT/SGPT) 32 U/L Total Bilirubin 0.1 MG/DL Sodium Level 144 MEQ/L Potassium Level 4.5 MEQ/L Chloride Level 105 MEQ/L Carbon Dioxide Level 30.7 MEQ/L Anion Gap 8 MEQ/L Estimat Glomerular Filtration Rate 49 ML/MIN Ammonia 35 MCMOL/L Phenytoin (Dilantin) Level 13.9 MCG/ML Lactic Acid Level 2.9 mmol/L Date/Time Source Procedure Growth Status 07/06/17 01:10 Blood Peripheral Aerobic Blood Culture Pending Received 07/06/17 01:10 Blood Peripheral Anaerobic Blood Culture Pending Received Physical Examination HEENT: Normocephalic; atraumatic; no jaundice. CHEST: Resp even/unlabored CARDIAC: Mildly tachycardic, regular rhythm, 102 ABDOMEN: Soft, mildly distended, mild diffuse tenderness; no hepatosplenomegaly ; bowel sounds are present in all four quadrants. EXTREMITIES: No clubbing, cyanosis, or edema. SKIN: Skin warm/dry [employer]: No focal deficits; lethargic, confused (Mercedez Sadler) Assessment and Plan Plan ASSESSMENT: - Upper GIB, Coffee Ground Emesis. Brought to ER for coffee ground emesis. On Meloxicam. Of note, his HH is improved from April of 2017. Will await this am's labs. No javad red bleeding. Protonix Gtt. Would hold on any endoscopic procedures at this time, as he appears to have a sbo and is not having any obvious javad bleeding. Cont. to closely monitor hh - Small bowel obstruction. CT scan abdomen and pelvis (07/05/17)----> distal small bowel obstruction with marked dilated stomach, prominently dilated small bowel to the level of the distal ileum with a transition point in the right lower quadrant, colon is normal in caliber, no discrete masses. No known surgeries and no scars noted on abdomen. NGT to LIWS- mod-large amount of dark bilious/? coffee ground colored gastric secretions. Will repeat KUB in am. Zosyn. - Anemia with hx of [place]. He was hospitalized in April of 2017 and noted to have a H/H of 7.4-8.4. On admission, he was noted to have an HH of 10.1/31.9 and repeat a few hours later was 10.0/30.9. There is no javad red bleeding. - AMS, lethargy. Pt has a hx of dementia, schizophrenia, and takes lactulose for elevated ammonia level. Ammonia 35. - Leukocytosis, Lactic acid 2.9. S/P Zosyn, Vanco x 1 dose. - Coagulopathy, mild. PT 11.9, INR 1.1, APTT 23.5. - PEMA. Creat 1.66. Has been vomiting, likley secondary to dehydration. - Elevated alk phosph. T. Bili 0.1, AST 22, ALT 32, Akl PHosph 179. Albumin is 3.6. Mild coagulopathy. Liver unremarkable on CT - Hx afib, not on anticoagulation. Currently sinus tachy, mild 102 - HTN, schizophrenia, dementia, anxiety, depression, hypothyroidism, hyperlipidemia, hypertension, seizure disorder, per attending. PLAN: - NPO - NGT to LIWS - Protonix Gtt - Zosyn - Monitor HH q6h x 3 - Transfuse as necessary - KUB in am - CBC, CMP, PT/INR, Ammonia in am - Notify GI of active bleeding - Supportive care - Further recommendations to follow based on results of above - Pt seen and examined by Dr. Lowery and myself and this note is written on his ealf (Mercedez Sadler) Physician Comments Seen and examined with BEN, SBO with hemetemesis. NG to LIS. GS consult. EGD if active bleeding. Will follow, thank you (Giovanni Lowery MD) Mrecedez Sadler Jul 06, 2017 08:46 Giovanni Lowery MD Jul 06, 2017 16:19
[2017-07-06] MEDS ORDERED: SODIUM CHLORIDE 0.9% FLUSH 10 ML FLUSH IV FLUSH SCH (09:00)
[2017-07-06] MEDS: DOCUSATE SODIUM 50 MG/SENNA 8.6 MG TAB PO SCH ×2 (09:00→20:54)
[2017-07-06] MEDS: SODIUM CHLOR 0.9% 1000 ML INJ 1,000 ML IV SCH ×2 (09:35→16:14)
[2017-07-06] MEDS: PANTOPRAZOLE INJ 80 MG in SODIUM CHLORIDE 0.9% INJ 100 ML IV SCH ×2 (09:35→17:16)
[2017-07-06] MEDS: SODIUM CHLORIDE 0.9% FLUSH 10 ML FLUSH IV FLUSH SCH ×2 (09:36→20:54)
[2017-07-06] MEDS: PIPERACIL-TAZO 3.375 GM PREMIX 50 ML IV SCH ×3 (09:56→20:53)
[2017-07-06] MEDS: PHENYTOIN INJ 100 MG/2 ML VIAL IV SCH ×3 (09:56→20:56)
--- NOTE | 2017-07-06 13:45 | PD.CONS ---
Consult Service Palliative Care . Consult Requested By Dr. Patton . Primary Care Physician Unknown . Reason for Consultation a. To assist with evaluation and management of symptoms including: Nausea/ vomiting, debility, pain, confusion b. To assist medical decision maker(s) with: better understanding of current medical conditions; weighing benefits/burdens of medical treatment options; making medical treatment decisions. . HPI History of Present Illness Mr. Rivera is a 76 y/o male known to palliative care with a medical history of dementia, atrial fibrillation, seizures, hypertension, hypothyroidism, schizophrenia and chronic kidney disease. He presented to [facility] ED on 07/05/17 via EMS from [facility] for evaluation of possible GI bleed. Apparently the facility nursing staff noted the patient had coffee- ground emesis with increased abdominal distention. No known history of black tarry or bloody stools was reported; no complaints of pain or fever reported. Patient does have a history of dementia; he was unable to provide any other helpful information. Of note, the patient was previously on Pradaxa, but this medication was discontinued in March, as the patient was no longer considered a candidate for anticoagulation therapy. Additional diagnostic data: * Vital signs: Pulse 101, respirations 20, BP 130/74, oxygen saturation 98% on room air, oral temperature 98.7 * WBC: 14.2, hemoglobin 10.1, hematocrit 31.9, platelets 434, neutrophils 77.3% * PT: 11.9, INR 1.1, APTT 23.5 * Sodium: 144, potassium 4.5, chloride 105, carbon dioxide 30.7, glucose 147, calcium 9.1 * BUN: 56 creatinine 1.66, GFR 49 * Lactic acid: 2.9 * Total bilirubin: 0.1, AST 22, ALT 32 * Alkaline phosphatase: 179 * Ammonia: 35 * Total protein: 8.7, albumin 3.6 * Chest x-ray showing cardiomegaly; left lower lobe atelectasis versus pneumonia * CT abdomen/pelvis revealed a distal small bowel obstruction. Patient is afebrile; tachycardic with heart rate in the low 100s; MAP 80s to 90s. CT imaging with distal small bowel obstruction. Patient received Protonix bolus and infusion for upper GI bleed. Upon returning from CT, patient with copious amounts of dark emesis concerning for possible feculent emesis with coffee ground emesis. NG tube was placed to intermittent wall suction with 1L of coffee ground output upon insertion. Stool was brown; heme positive. Blood cultures were obtained, and the patient was administered IV antibiotics (Zosyn and Vancomycin) for possible left lower lobe infiltrate and concern for aspiration of stomach/intestinal contents with small bowel obstruction. Gastroenterology was consulted. Per nursing report, the patient had projectile vomiting with coffee-ground emesis overnight. He denied abdominal pain but was noted to have mild diffuse abdominal tenderness on exam. NGT to LIWS; draining a moderate to large amount of dark bilious material this morning. Of note, he has been taking lactulose at the senior living for a high ammonia level, but there is no known history of liver cirrhosis, varices, or prior GI bleeding. KUB pending. Per notes, Dr. Patton spoke with the patient's son (Mg Rivera) who lives in [place] to discuss patient's advancing dementia, now with a GI bleed and SBO is at high risk for further decompensation. Mg stated "as of now we would want him to be intubated and FULL CODE unless he is basically brain-" . He did state that he had a limited understanding of his father's medical condition because he [place] out of state. Palliative Care was consulted to assist with symptom management and to discuss with the family the benefits and burdens of his current illnesses and the options regarding future care. Attempted to contact patient's children via telephone. Unable to leave a message on patient's son's, Mg, voicemail. Message was left on patient's daughter's, Suzi, voicemail. Awaiting return phone call. . Function/Cognitive Trajectory Patient resides in a long-term care facility. He has history of paranoid schizophrenia which was first diagnosed in the early 1970s with multiple psychiatric hospitalizations. The patient's son reports that Mr. Rivera has been essentially bedbound since February 2015 after sustaining a hip injury secondary to a fall. The senior living notes indicate he has been at [facility] since 11/11/2015. There is a history of dementia, and the son reports that the patient says only a few words, and does not participate in conversation. He requires assistance with all ADLs. He eats a regular diet with nectar consistency thickened liquids. . Review of Systems ROS Limitations: Altered Mental Status, Poor Historian Constitutional: COMPLAINS OF: Pain (reporting throat pain), Generalized weakness Gastrointestinal: DENIES: Abdominal pain Psychiatric: COMPLAINS OF: Confusion Past Family Social History Coded Allergies: *MDRO Multi-Drug Resistant Organism (Verified Adverse Reaction, Unknown, MRSA, 04/19/17) 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 - 06/13/16, 04/17/17 Past Medical History Per EMR: Atrial fibrillation on chronic anticoagulation Elevated ammonia level Hypothyroidism Hypertension Seizure disorder Anxiety/Depression GERD Iron Deficiency Anemia Schizophrenia Dementia Arthritis . Past Surgical History Left hip surgery . Reported Medications Synthroid (Levothyroxine Sodium) 50 Mcg Tab 50 Mcg PO DAILY@0600 . Current Medications Medications (Trade) Dose Ordered Sig/Miquel Route Start Time Stop Time Status Last Admin Pantoprazole Sodium 80 mg/ Sodium Chloride 100 ml @ 10 mls/hr Q10H IV 07/05/17 21:14 07/06/17 09:35 (Dilantin Inj) 200 mg Q12HR IV 07/06/17 09:00 07/06/17 09:56 (Dilantin Inj) 100 mg DAILY@1200 IV 07/06/17 12:00 Sodium Chloride 1,000 ml @ 125 mls/hr Q8H IV 07/06/17 07:04 07/06/17 09:35 (NS Flush) 2 ml UNSCH PRN IV FLUSH 07/06/17 07:15 (NS Flush) 2 ml BID IV FLUSH 07/06/17 09:00 07/06/17 09:36 (Zofran Inj) 4 mg Q6H PRN IV PUSH 07/06/17 07:15 (Albuterol Neb) 2.5 mg Q2HR NEB PRN INH 07/06/17 07:15 Miscellaneous Information 1 Q361D XX 07/06/17 07:15 (Chlorhexidine 2% Cloth) 3 pack Taper DAILY@04 TOP 07/07/17 04:00 07/03/18 03:59 (Chlorhexidine 2% Cloth) 3 pack UNSCH PRN TOP 07/06/17 07:15 (Ramona-Colace) 1 tab BID PO 07/06/17 09:00 (Milk Of Magnesia Liq) 30 ml Q12H PRN PO 07/06/17 07:15 (Senokot) 17.2 mg Q12H PRN PO 07/06/17 07:15 (Dulcolax Supp) 10 mg DAILY PRN RECTAL 07/06/17 07:15 (Lactulose Liq) 30 ml DAILY PRN PO 07/06/17 07:15 Dextrose/Lactated Ringer's 1,000 ml @ 125 mls/hr Q8H IV 07/06/17 08:15 Piperacillin Sod/ Tazobactam Sod 50 ml @ 100 mls/hr Q6H IV 07/06/17 09:00 07/06/17 09:56 (Synthroid Inj) 25 mcg DAILY@06 IV PUSH 07/07/17 06:00 . Family History Pending conversations with patient's family. . Substance Use Tobacco: None known Alcohol: None known Prescription med abuse: None known Illicits: None known . Psychosocial History The patient was born and raised in [facility]. He was for about 20 years but for many years. He had 4 sons and 2 daughters , one daughter is . . Spiritual/Cultural Factors No buddhism affiliation. . Durable Power of High Lift Driver: Copy in medical record (05/04/2014 -- THIS IS A [place] FIN[employer]CIAL POWER OF [employer] DOCUMENT. IT DOES NOT REFER TO HEALTH CARE DECISION MAKING. ) Documented care wishes: Patient's 2 children ( Mg and Suzi) are the "co-health care proxy decision-maker." . Today's verbally stated goals: Patient is unable to verbalize his medical treatment goals; he does have insight or understanding of his medical conditions. . Family/friends goals: Per notes, Dr. Patton spoke with the patient's son (Mg Rivera) who lives in [place] to discuss patient's advancing dementia, now with a GI bleed and SBO is at high risk for further decompensation. Mg stated "as of now we would want him to be intubated and FULL CODE unless he is basically brain-" . . Ethical and Legal Issues During previous hospitalization, all available children were previously contacted by palliative care. All have deferred health care decision making to two of the children Chad and Suzi as co-HCP. "Health care proxy designation form" from facility, completed 09/04/16, confirms Mg Rivera and Suzi Ortiz as the healthcare proxy decision makers. * Mg Rivera (son) who lives in [place] [phone] * Suzi Ortiz (daughter) who lives in [facility] [phone] . Physical Exam Vital Signs Date Time Temp Pulse Resp B/P (MAP) Pulse Ox O2 Delivery O2 Flow Rate FiO2 07/06/17 11:33 07/06/17 10:59 99 Nasal Cannula 2.00 07/06/17 09:30 93 15 118/57 (77) 99 Room Air 2.00 07/06/17 08:30 93 16 111/58 (75) 99 Room Air 07/06/17 07:30 100 16 120/61 (80) 97 Room Air 2.20 07/06/17 06:30 100 12 118/62 (80) 98 Room Air 07/06/17 05:15 106 16 124/65 (84) 07/06/17 05:00 102 17 112/57 (75) 07/06/17 04:15 72 22 162/ 6 Nasal Cannula 2.20 07/06/17 04:00 119/64 (82) 07/06/17 03:12 98 07/06/17 03:00 112 20 128/66 (86) 97 07/06/17 02:00 104 20 140/67 (91) 97 07/06/17 01:00 102 20 133/71 (91) 97 07/06/17 00:00 100 20 138/70 (92) 96 07/05/17 23:00 108 20 121/67 (85) 97 07/05/17 20:53 98.7 101 20 130/74 (92) 98 . 07/06/17 07/07/17 19:00 07:00 # Bowel Movements 0 . Exam CONSTITUTIONAL/GENERAL: This is a frail, elderly male patient in no acute distress TUBES/LINES/DRAINS: PIV x2, NGT, SKIN: No jaundice, rashes, or lesions. Ecchymoses on upper extremities. No wounds seen anteriorly. Skin temperature appropriate. Not diaphoretic. HEAD: Atraumatic. Normocephalic. EYES: Pupils equal and round. No scleral icterus. No injection or drainage. Fundi not examined. ENT: Hearing grossly normal. Nose without bleeding or purulent drainage. NECK: Trachea midline. Supple, nontender. No palpable thyroid enlargement or nodularity. CARDIOVASCULAR: Regular rate and rhythm without murmurs, gallops, or rubs. RESPIRATORY/CHEST: Symmetric, unlabored respirations. Clear to auscultation. Breath sounds equal bilaterally. No accessory muscle use GASTROINTESTINAL: Abdomen soft, non-tender, nondistended. No guarding. GENITOURINARY: Without palpable bladder distension. MUSCULOSKELETAL: Extremities without clubbing, cyanosis, or edema. LYMPHATICS: No palpable cervical or supraclavicular adenopathy. NEUROLOGICAL: Awake; oriented to self only. Responds to questions with 1-2 word answers. VOGT x 4. Able to make needs known at times. PSYCHIATRIC: No obvious anxiety/depression. No apparent hallucinations or other psychotic thought process. Diagnostic Tests Laboratory Laboratory Tests Test 07/05/17 21:50 07/05/17 23:55 07/05/17 23:58 07/06/17 08:30 White Blood Count 14.2 TH/MM3 (4.0-11.0) 13.2 TH/MM3 (4.0-11.0) 12.5 TH/MM3 (4.0-11.0) Red Blood Count 3.26 MIL/MM3 (4.50-5.90) 3.14 MIL/MM3 (4.50-5.90) 2.63 MIL/MM3 (4.50-5.90) Hemoglobin 10.1 GM/DL (13.0-17.0) 10.0 GM/DL (13.0-17.0) 8.2 GM/DL (13.0-17.0) Hematocrit 31.9 % (39.0-51.0) 30.9 % (39.0-51.0) 25.5 % (39.0-51.0) Mean Corpuscular Volume 97.9 FL (80.0-100.0) 98.6 FL (80.0-100.0) 97.0 FL (80.0-100.0) Mean Corpuscular Hemoglobin 31.1 PG (27.0-34.0) 31.8 PG (27.0-34.0) 31.2 PG (27.0-34.0) Mean Corpuscular Hemoglobin Concent 31.8 % (32.0-36.0) 32.3 % (32.0-36.0) 32.2 % (32.0-36.0) Red Cell Distribution Width 15.7 % (11.6-17.2) 15.4 % (11.6-17.2) 15.5 % (11.6-17.2) Platelet Count 434 TH/MM3 (150-450) 375 TH/MM3 (150-450) 308 TH/MM3 (150-450) Mean Platelet Volume 7.6 FL (7.0-11.0) 7.9 FL (7.0-11.0) 7.7 FL (7.0-11.0) Neutrophils (%) (Auto) 77.3 % (16.0-70.0) 72.4 % (16.0-70.0) Lymphocytes (%) (Auto) 12.9 % (9.0-44.0) 17.3 % (9.0-44.0) Monocytes (%) (Auto) 8.7 % (0.0-8.0) 8.9 % (0.0-8.0) Eosinophils (%) (Auto) 0.7 % (0.0-4.0) 0.9 % (0.0-4.0) Basophils (%) (Auto) 0.4 % (0.0-2.0) 0.5 % (0.0-2.0) Neutrophils # (Auto) 10.9 TH/MM3 (1.8-7.7) 9.6 TH/MM3 (1.8-7.7) Lymphocytes # (Auto) 1.8 TH/MM3 (1.0-4.8) 2.3 TH/MM3 (1.0-4.8) Monocytes # (Auto) 1.2 TH/MM3 (0-0.9) 1.2 TH/MM3 (0-0.9) Eosinophils # (Auto) 0.1 TH/MM3 (0-0.4) 0.1 TH/MM3 (0-0.4) Basophils # (Auto) 0.1 TH/MM3 (0-0.2) 0.1 TH/MM3 (0-0.2) CBC Comment DIFF FINAL DIFF FINAL Differential Comment Prothrombin Time 11.9 SEC (9.8-11.6) Prothromb Time International Ratio 1.1 RATIO Activated Partial Thromboplast Time 23.5 SEC (24.3-30.1) Blood Urea Nitrogen 56 MG/DL (7-18) Creatinine 1.66 MG/DL (0.60-1.30) Random Glucose 147 MG/DL (74-106) Total Protein 8.7 GM/DL (6.4-8.2) Albumin 3.6 GM/DL (3.4-5.0) Calcium Level 9.1 MG/DL (8.5-10.1) Alkaline Phosphatase 179 U/L (45-117) Aspartate Amino Transf (AST/SGOT) 22 U/L (15-37) Alanine Aminotransferase (ALT/SGPT) 32 U/L (12-78) Total Bilirubin 0.1 MG/DL (0.2-1.0) Sodium Level 144 MEQ/L (136-145) Potassium Level 4.5 MEQ/L (3.5-5.1) Chloride Level 105 MEQ/L (98-107) Carbon Dioxide Level 30.7 MEQ/L (21.0-32.0) Anion Gap 8 MEQ/L (5-15) Estimat Glomerular Filtration Rate 49 ML/MIN (>89) Ammonia 35 MCMOL/L (11-32) Phenytoin (Dilantin) Level 13.9 MCG/ML (10.0-20.0) Lactic Acid Level 2.9 mmol/L (0.4-2.0) 1.6 mmol/L (0.4-2.0) . Result Diagram: 07/06/1782907/05/172149 Microbiology Microbiology Date/Time Source Procedure Growth Status 07/06/17 01:10 Blood Peripheral Aerobic Blood Culture Pending Received 07/06/17 01:10 Blood Peripheral Anaerobic Blood Culture Pending Received 07/05/17 23:55 Blood Peripheral Aerobic Blood Culture Pending Received 07/05/17 23:55 Blood Peripheral Anaerobic Blood Culture Pending Received . Imaging Last 72 hours Impressions Chest X-Ray 07/05/17 0000 Signed Impressions: Service Date/Time: Wednesday, July 05, 2017 21:26 - CONCLUSION: 1. Cardiomegaly 2. Left lower lobe atelectasis versus pneumonia. Mukul Moralez MD Abdomen/Pelvis CT 07/05/17 0000 Signed Impressions: Service Date/Time: Wednesday, July 05, 2017 23:20 - CONCLUSION: Distal small bowel obstruction Boubacar Pearl MD . Patient/Family Conference Present at Family Conference: Spoke with patient briefly at bedside. Attempted to contact 2 of the patient's children ( Mg and Ciara). Message left for Ciara on her voicemail; unable to leave a message for Mg. . Issues Discussed: * Palliative care role, purpose, approach * Palliative care contact information provided . Assessment and Plan Disease Oriented Problem List: (1) Dementia (2) SBO (small bowel obstruction) (3) SIRS (systemic inflammatory response syndrome) (4) GI bleed (5) Leukocytosis (6) Acute kidney injury (7) Seizures Symptom Scale: (1) Pain (2) Nausea & vomiting (3) Debility (4) Confusion Pertinent Non-Medical Issues Psychosocial: The patient was born and raised in [facility]. He was for about 20 years but for many years. He had 4 sons and 2 daughters, one daughter is . Spiritual: No buddhism affiliation. Legal: Power of document review attorney completed. Ethical issues impacting care: Patient unable to participate in medical decision -making, not capacitated secondary to dementia. HCP are his children. . Important Contacts Son Chad RiveraJr who resides in [place] Daughter Suzi Ortiz who resides in the [facility] . . Prognosis Mr. Rivera is a 76 y/o male known to palliative care with a medical history of dementia, atrial fibrillation on anticoagulation, seizures, hypertension, schizophrenia and chronic kidney disease. Clinical course complicated by GI bleed, possible left lower lobe infiltrate and concern for aspiration of stomach/ intestinal contents with small bowel obstruction. Patient at a very high risk for further complications. Prognosis is guarded given multiple chronic comorbidities, acute events, physical deconditioning and advanced age. . Code Status: Full Code Plan * FULL CODE * Decision-making: Patient's 2 children ( Mg and Suzi) are the "co- health care proxy decision-maker. During previous hospitalization, all available children were previously contacted by palliative care. All deferred health care decision making to two of the children Chad and Suzi as co- HCP. A "health care proxy designation form" completed 09/04/16, was sent from the long-term care facility where the patient resides; it confirms Mg Rivera and Suzi Ortiz legal medical decision makers. * Goals: Aggressive pending further conversations with patient's children. * Per notes, Dr. Patton spoke with the patient's son (Mg Rivera) who lives in [place] to discuss patient's advancing dementia, now with a GI bleed and SBO is at high risk for further decompensation. Mg stated "as of now we would want him to be intubated and FULL CODE unless he is basically brain-" . * Palliative care attempted to contact 2 of the patient's children ( Mg and Ciara). A message left for Ciara on her voicemail with palliative care contact information; awaiting return phone call. Attempted to contact patient's son, Mg. Unable to leave a message; no voice mail was available. * Discussed with Mercedez Sadler, gastrointestinal CORPORATE TUTOR * Discussed with bedside nurse, Marianne, in the ED. * Patient admitted with by GI bleed, possible left lower lobe infiltrate and concern for aspiration of stomach/intestinal contents with small bowel obstruction. Patient at a very high risk for further complications. Prognosis is guarded given multiple chronic comorbidities, acute events, physical deconditioning and advanced age. * Symptom management - confusion: Patient with advancing dementia. Oriented to person only. * Symptom management - nausea/vomiting: Upon admission, patient had copious amounts of dark emesis concerning for possible feculent emesis with coffee ground emesis. NG tube was placed to intermittent wall suction with 1L of coffee ground output upon insertion. NGT draining moderate to large amounts of dark bilious drainage this morning. * Symptom management - debility: Patient resident of long-term facility. Requiring assistance with all ADLs. Likely to continue to worsen. * Symptom management - pain: Patient does not appear to be uncomfortable at this time. * Palliative care will continue to follow this patient throughout his hospitalization to establish trust, assist with symptom management and clarification of medical treatment goals. . Thank you for the opportunity to participate in the care of Mr. Rivera. Attestation To help prompt me to consider important information that might be impacting today's encounter and assessment, information from prior notes written by myself or my colleagues may have been "brought forward" into today's note. My signature on this note, however, is an attestation that I personally performed the exam, history, and/or decision-making noted today, and, unless otherwise indicated, the interactions with patient, family, and staff as well as the review of records all occurred today. I also attest that the listed assessment and stated plan reflect my best clinical judgment today based on the combination of historical information, prior notes, and today's exam/ interactions. When time spent is documented, it refers only to time spent today by the signer, or if indicated, combined time spent today by collaborating physician/nurse practitioner. . Vikki Oliver Jul 06, 2017 13:45
[2017-07-06] MEDS: DEXTROSE 5%-LACTATED RING INJ 1,000 ML IV SCH ×2 (17:16→17:18)
[2017-07-07] VITALS (19 sets, daily range): BP systolic 94–157; BP diastolic 43–84; PULSE 85–101; RESP 7–22; TEMP 98.1–98.9; O2SAT 96–100
[2017-07-07] MEDS: DEXTROSE 5%-LACTATED RING INJ 1,000 ML IV SCH ×3 (00:15→20:06)
[2017-07-07] MEDS: PANTOPRAZOLE INJ 80 MG in SODIUM CHLORIDE 0.9% INJ 100 ML IV SCH (03:55)
[2017-07-07] MEDS: PIPERACIL-TAZO 3.375 GM PREMIX 50 ML IV SCH ×4 (03:55→20:05)
[2017-07-07] MEDS: CHLORHEXIDINE GLUCONATE 2 % 1 PACK (2 CLOTHS) TOP SCH (04:00)
[2017-07-07 04:07] LABS: AUTOMATED NEUTROPHIL # 9.3 TH/MM3 (1.8-7.7); BASOPHIL # 0.1 TH/MM3 (0-0.2); BASOPHIL % 0.8 % (0.0-2.0); EOSINOPHIL # 0.2 TH/MM3 (0-0.4); EOSINOPHIL % 1.8 % (0.0-4.0); HEMATOCRIT 24.6 % (39.0-51.0); HEMO FLAGS DIFF FINAL; LYMPH % 7.5 % (9.0-44.0); LYMPHOCYTE # 0.9 TH/MM3 (1.0-4.8); MEAN CELL VOLUME 97.4 FL (80.0-100.0); MEAN CORPUSCULAR HEMOGLOBIN 31.8 PG (27.0-34.0); MEAN CORPUSCULAR HGB CONC 32.7 % (32.0-36.0); MONO % 8.8 % (0.0-8.0); NEUT % 81.1 % (16.0-70.0); PLATELET COUNT 266 TH/MM3 (150-450); RED BLOOD COUNT 2.53 MIL/MM3 (4.50-5.90); RED CELL DISTRIBUTION WIDTH 14.9 % (11.6-17.2); WHITE BLOOD COUNT 11.4 TH/MM3 (4.0-11.0)
[2017-07-07] MEDS ORDERED: ACETAMINOPHEN 500 MG CPLT PO ONE (04:15)
[2017-07-07] MEDS: LEVOTHYROXINE SODIUM 100 MCG VIAL IV PUSH SCH (04:26)
--- NOTE | 2017-07-07 04:28 | RADRPT ---
EXAM DATE/TIME: 07/07/2017 03:20 [facility] COMPARISON: No previous studies available for comparison. INDICATIONS : Distention. MEDICAL HISTORY : Gastroesophageal reflux disease. Cardiovascular disease. Hypertension. SURGICAL HISTORY : None. ENCOUNTER: Subsequent ACUITY: 3 days PAIN SCORE: Non-responsive. LOCATION: abdomen, all quadrants. FINDINGS: Nasogastric tube tip is in the stomach. There is minimal gaseous distention of some small bowel loops over the central abdomen. No suspicious calcific densities. Mild degenerative changes in the spine. CONCLUSION: Mild gaseous distention of small bowel Boubacar Pearl MD on July 07, 2017 at 4:26 Board Certified Radiologist. This report was verified electronically.
[2017-07-07 04:38] LABS: ALKALINE PHOSPHATASE 146 U/L (45-117); ALT (GPT) 24 U/L (12-78); ANION GAP 9 MEQ/L (5-15); AST (GOT) 22 U/L (15-37); BICARBONATE 27.3 MEQ/L (21.0-32.0); BLOOD UREA NITROGEN 43 MG/DL (7-18); CHLORIDE 112 MEQ/L (98-107); GLOMERULAR FILTRATION RATE 54 ML/MIN (>89); POTASSIUM 3.5 MEQ/L (3.5-5.1); SODIUM (NA) 148 MEQ/L (136-145); TOTAL BILIRUBIN ADULT 0.3 MG/DL (0.2-1.0)
[2017-07-07] MEDS: DOCUSATE SODIUM 50 MG/SENNA 8.6 MG TAB PO SCH ×2 (09:10→20:05)
[2017-07-07] MEDS: SODIUM CHLORIDE 0.9% FLUSH 10 ML FLUSH IV FLUSH SCH ×2 (09:11→20:05)
[2017-07-07] MEDS: PHENYTOIN INJ 100 MG/2 ML VIAL IV SCH ×3 (09:11→20:05)
--- NOTE | 2017-07-07 10:58 | HHI.PR ---
Subjective Remarks f/u for SBO and melena patient has NG in placed. His nurse and us tech at bedside during the interview. Patient asking for some water. Patient stated once he gets some water then he can tell me he is doing well. Deny any nausea/vomiting. He has not had a bowel movement since yesterday. Last bowel movement was melanotic. Per patient's nurse last night right hand develops swelling and pain. Objective Vitals Vital Signs Date Time Temp Pulse Resp B/P (MAP) Pulse Ox O2 Delivery O2 Flow Rate FiO2 07/07/17 10:00 92 15 103/46 (65) 98 07/07/17 09:00 88 17 114/51 (72) 100 07/07/17 08:00 100 21 07/07/17 08:00 98.1 90 13 110/49 (69) 100 07/07/17 07:00 92 16 99/46 (63) 100 07/07/17 06:00 97 07/07/17 04:00 100 07/07/17 04:00 98.4 100 22 157/75 (102) 99 07/07/17 02:00 101 07/07/17 00:00 90 07/07/17 00:00 98.4 90 19 102/45 (64) 100 07/06/17 22:45 100 21 07/06/17 22:00 89 07/06/17 20:00 87 07/06/17 20:00 98.4 87 14 128/59 (82) 100 07/06/17 18:00 86 07/06/17 18:00 86 15 117/56 (76) 100 07/06/17 17:00 87 19 110/56 (74) 99 07/06/17 16:00 98.0 86 14 129/58 (81) 100 07/06/17 16:00 86 07/06/17 14:30 87 18 123/59 (80) 97 Room Air 07/06/17 13:30 88 16 115/57 (76) 99 Room Air 07/06/17 12:30 98 26 115/59 (77) 99 Room Air 07/06/17 11:33 07/06/17 11:30 94 16 112/58 (76) 98 Room Air 07/06/17 10:59 99 Nasal Cannula 2.00 I/O 10/10/17 07/06/17 07/06/17 07/07/17 07/07/17 07/07/17 07:00 15:00 23:00 07:00 15:00 23:00 Intake Total 145 ml 50 ml 1036 ml 50 ml Output Total 575 ml 825 ml Balance 145 ml 50 ml 461 ml -825 ml 50 ml Intake IV Total 145 ml 50 ml 1036 ml 50 ml Output Urine Total 525 ml 650 ml Stool Total 0 ml Gastric Drainage Total 50 ml 175 ml # Bowel Movements 0 Result Diagram: 07/07/17 0357 07/07/17 0357 Imaging Last Impressions Abdomen X-Ray 07/07/17 0600 Signed Impressions: Service Date/Time: Friday, July 07, 2017 03:20 - CONCLUSION: Mild gaseous distention of small bowel Boubacar Pearl MD Chest X-Ray 07/05/17 0000 Signed Impressions: Service Date/Time: Wednesday, July 05, 2017 21:26 - CONCLUSION: 1. Cardiomegaly 2. Left lower lobe atelectasis versus pneumonia. Mukul Moralez MD Abdomen/Pelvis CT 07/05/17 0000 Signed Impressions: Service Date/Time: Wednesday, July 05, 2017 23:20 - CONCLUSION: Distal small bowel obstruction Boubacar Pearl MD Objective Remarks GENERAL: in NAD HEAD: Normocephalic. in NG. CARDIOVASCULAR: Regular rate and rhythm without murmurs, gallops, or rubs. RESPIRATORY: Breath sounds equal bilaterally. No accessory muscle use. GASTROINTESTINAL: Abdomen soft, non-tender, nondistended. EXT: right hand with swelling and erythema. +TTP Medications and IVs Current Medications Ondansetron HCl (Zofran Inj) 4 mg ONCE ONCE IVP Last administered on 22:44; Start 07/05/17 at 21:15; Stop 07/05/17 at 21:16; Status DC Sodium Chloride (NS Flush) 2 ml UNSCH PRN IVF FLUSH AFTER USING IV ACCESS Last administered on 07/05/17 22:44; Start 07/05/17 at 21:15; Stop 07/06/17 at 05: 11; Status DC Pantoprazole Sodium 80 mg/ Sodium Chloride 35 ml @ 420 mls/hr Q5M ONCE IV Last administered on 07/05/17 22:44; Start 07/05/17 at 21:14; Stop 07/05/17 at 21:18; Status DC Pantoprazole Sodium 80 mg/ Sodium Chloride 100 ml @ 10 mls/hr Q10H IV Last administered on 07/07/17 03:55; Start 07/05/17 at 21:14 Piperacillin Sod/ Tazobactam Sod 100 ml @ 200 mls/hr ONCE ONCE IV Last administered on 07/06/17 01:27; Start 07/06/17 at 00:00; Stop 07/06/17 at 00 :29; Status DC Vancomycin HCl 1000 mg/Sodium Chloride 250 ml @ 250 mls/hr ONCE ONCE IV Last administered on 07/06/17 02:11; Start 07/06/17 at 00:00; Stop 07/06/17 at 00 :59; Status DC Sodium Chloride 500 ml @ 500 mls/hr BOLUS ONCE IV Last administered on 02:30; Start 07/06/17 at 02:30; Stop 07/06/17 at 03:29; Status DC Sodium Chloride (NS Flush) 2 ml BID IV FLUSH ; Start 07/06/17 at 09:00; Stop 07/06/17 at 09:00; Status DC Sodium Chloride (NS Flush) 2 ml UNSCH PRN IVF FLUSH AFTER USING IV ACCESS; Start 07/06/17 at 02:45; Stop 07/06/17 at 07:34; Status DC Phenytoin Sodium (Dilantin Inj) 200 mg Q12HR IV Last administered on 09:11; Start 07/06/17 at 09:00 Phenytoin Sodium (Dilantin Inj) 100 mg DAILY@1200 IV Last administered on 07/06 14:32; Start 07/06/17 at 12:00 Sodium Chloride 1,000 ml @ 125 mls/hr Q8H IV Last administered on 07/06/17 16:14; Start 07/06/17 at 07:04; Stop 07/06/17 at 17:43; Status DC Sodium Chloride (NS Flush) 2 ml UNSCH PRN IV FLUSH FLUSH AFTER USING IV ACCESS ; Start 07/06/17 at 07:15 Sodium Chloride (NS Flush) 2 ml BID IV FLUSH Last administered on 10/11/17at 09 :11; Start 07/06/17 at 09:00 Ondansetron HCl (Zofran Inj) 4 mg Q6H PRN IV PUSH NAUSEA OR VOMITING; Start at 07:15 Albuterol Sulfate (Albuterol Neb) 2.5 mg Q2HR NEB PRN INH SOB/WHEEZING; Start 07/06/17 at 07:15 Miscellaneous Information 1 Q361D XX ; Start 07/06/17 at 07:15 Chlorhexidine Gluconate (Chlorhexidine 2% Cloth) 3 pack Taper DAILY@04 TOP Last administered on 07/07/17 04:00; Start 07/07/17 at 04:00; Stop 07/03/18 at 03:59 Chlorhexidine Gluconate (Chlorhexidine 2% Cloth) 3 pack UNSCH PRN TOP HYGIENIC CARE; Start 07/06/17 at 07:15 Senna/Docusate Sodium (Ramona-Colace) 1 tab BID PO Last administered on 09:10; Start 07/06/17 at 09:00 Magnesium Hydroxide (Milk Of Magnesia Liq) 30 ml Q12H PRN PO MILD - MODERATE CONSTIPATION; Start 07/06/17 at 07:15 Sennosides (Senokot) 17.2 mg Q12H PRN PO MODERATE - SEVERE CONSTIPATION; Start 07/06/17 at 07:15 Bisacodyl (Dulcolax Supp) 10 mg DAILY PRN RECTAL SEVERE CONSITIPATION; Start 07/06/17 at 07:15 Lactulose (Lactulose Liq) 30 ml DAILY PRN PO SEVERE CONSITIPATION; Start 07/06 at 07:15 Dextrose/Lactated Ringer's 1,000 ml @ 125 mls/hr Q8H IV Last administered on 07/07/17 00:15; Start 07/06/17 at 08:15 Piperacillin Sod/ Tazobactam Sod 50 ml @ 100 mls/hr Q6H IV Last administered on 07/07/17 09:11; Start 07/06/17 at 09:00 Levothyroxine Sodium (Synthroid Inj) 25 mcg DAILY@06 IV PUSH Last administered on 07/07/17 04:26; Start 07/07/17 at 06:00 Acetaminophen (Tylenol) 500 mg ONCE ONCE PO Last administered on 10/11/17at 04 :15; Start 07/07/17 at 04:15; Stop 07/07/17 at 04:16; Status DC A/P Assessment and Plan 76 y/o who p/w melena Small bowel obstruction -GI consulted and following. Patient had NG tube placed. -On IV fluids. -Management per GI. GI bleed -GI recommended EGD. -Patient on Protonix and Reglan. -Continue to trend H&H and monitor for GI bleed. Dementia/Schizophrenia/Seizures disorder/Anxiety/h/o hyperammonemia -Dilantin level is 13.9. Continue Dilantin 200 mg IV q12 and 100 mg IV at noon. -zyprexa held. . Swelling of right hand -Most likely secondary to superficial clot since occur after attempted IV placement. -Continue to monitor. -Pending US results. Paroxysmal Atrial fibrillation/Hypertension -Metoprolol was held secondary to GI bleed. -Hold metoprolol currently due to concern for GI bleeding. Acute kidney injury -Continue to monitor. Strict ins and outs. Avoid nephrotoxins. SIRS response to GI bleeding -Treated empirically for sepsis, but no infectious source. Continue Zosyn and vancomycin until final cultures. Anemia -Has chronic anemia and now with acute blood loss. Followup Hgb q6 hours. Transfuse as needed for Hgb <7. Type and Screen. Hypothyroidism -Synthroid 25 mcg IV daily PROPH: SCD for DVT prophylaxis. Pharmacologic DVT prophylaxis contraindicated in setting of concern for GI bleeding. Protonix drip. Discharge Planning Palliative care following. Caterina Ledesma MD Jul 07, 2017 10:58
--- NOTE | 2017-07-07 12:04 | RADRPT ---
EXAM DATE/TIME: 07/07/2017 08:46 [facility] COMPARISON: US ARM RIGHT VENOUS DOPPLER, July 02, 2016, 14:27. INDICATIONS : Right arm swelling. MEDICAL HISTORY : Hypercholesterolemia. Gastroesophageal reflux disease. Deep venous thrombosis. Dysphagia. Dementia. S eizures. Hyperlipidemia. HTN. Irregular heartbeat. UTI. Diabetes. Anemia. Schizophrenia. Depression. Anxiety. MRSA. Cdiff. Anticoagulant therapy, Pradaxa. SURGICAL HISTORY : Left hip surgery. ENCOUNTER: Initial ACUITY: 1 day PAIN SCORE: 4/10 LOCATION: Right arm. FINDINGS: There is spontaneous flow documented in the brachial, basilic, cephalic, axillary, and subclavian vei ns. The vessels are compressible and augmentation response is documented. No filling defects are se en. The flow is phasic with respiration. Direction of flow in the jugular vein is caudal. CONCLUSION: 1. No evidence of deep venous thrombosis. Mukul Moralez MD on July 07, 2017 at 12:02 Board Certified Radiologist. This report was verified electronically.
--- NOTE | 2017-07-07 12:54 | HHI.GIFU ---
Subjective Remarks Resting in bed. Lethargic, no distress. No n/v. Minimal gastric output. Nurse reports that he was told that he had a small dark stool in the ER, has not had today. No abdominal distention, not tender on exam. (Mercedez Sadler) Objective Vitals I&O Vital Signs Date Time Temp Pulse Resp B/P (MAP) Pulse Ox O2 Delivery O2 Flow Rate FiO2 07/07/17 12:00 98.9 93 20 94/46 (62) 100 07/07/17 12:00 93 07/07/17 11:00 91 14 97/43 (61) 98 07/07/17 10:00 92 15 103/46 (65) 98 07/07/17 10:00 92 07/07/17 09:00 88 17 114/51 (72) 100 07/07/17 08:00 100 21 07/07/17 08:00 90 07/07/17 08:00 98.1 90 13 110/49 (69) 100 07/07/17 07:00 92 16 99/46 (63) 100 07/07/17 06:00 97 07/07/17 04:00 100 07/07/17 04:00 98.4 100 22 157/75 (102) 99 07/07/17 02:00 101 07/07/17 00:00 90 07/07/17 00:00 98.4 90 19 102/45 (64) 100 07/06/17 22:45 100 21 07/06/17 22:00 89 07/06/17 20:00 87 07/06/17 20:00 98.4 87 14 128/59 (82) 100 07/06/17 18:00 86 07/06/17 18:00 86 15 117/56 (76) 100 07/06/17 17:00 87 19 110/56 (74) 99 07/06/17 16:00 98.0 86 14 129/58 (81) 100 07/06/17 16:00 86 07/06/17 14:30 87 18 123/59 (80) 97 Room Air 07/06/17 13:30 88 16 115/57 (76) 99 Room Air I/O 07/06/17 07/06/17 07/06/17 07/07/17 07/07/17 07/07/17 07:00 15:00 23:00 07:00 15:00 23:00 Intake Total 145 ml 50 ml 1036 ml 50 ml Output Total 575 ml 825 ml Balance 145 ml 50 ml 461 ml -825 ml 50 ml Intake IV Total 145 ml 50 ml 1036 ml 50 ml Output Urine Total 525 ml 650 ml Stool Total 0 ml Gastric Drainage Total 50 ml 175 ml # Bowel Movements 0 Laboratory Laboratory Tests Test 07/06/17 14:12 07/06/17 15:40 07/06/17 17:33 07/06/17 23:42 Hemoglobin 8.2 7.7 8.2 Nasal Screen MRSA (PCR) MRSA NOT DETECTED Test 07/07/17 03:57 White Blood Count 11.4 Red Blood Count 2.53 Hemoglobin 8.0 Hematocrit 24.6 Mean Corpuscular Volume 97.4 Mean Corpuscular Hemoglobin 31.8 Mean Corpuscular Hemoglobin Concent 32.7 Red Cell Distribution Width 14.9 Platelet Count 266 Mean Platelet Volume 7.5 Neutrophils (%) (Auto) 81.1 Lymphocytes (%) (Auto) 7.5 Monocytes (%) (Auto) 8.8 Eosinophils (%) (Auto) 1.8 Basophils (%) (Auto) 0.8 Neutrophils # (Auto) 9.3 Lymphocytes # (Auto) 0.9 Monocytes # (Auto) 1.0 Eosinophils # (Auto) 0.2 Basophils # (Auto) 0.1 CBC Comment DIFF FINAL Differential Comment Blood Urea Nitrogen 43 Creatinine 1.53 Random Glucose 140 Total Protein 7.2 Albumin 3.0 Calcium Level 8.3 Alkaline Phosphatase 146 Aspartate Amino Transf (AST/SGOT) 22 Alanine Aminotransferase (ALT/SGPT) 24 Total Bilirubin 0.3 Sodium Level 148 Potassium Level 3.5 Chloride Level 112 Carbon Dioxide Level 27.3 Anion Gap 9 Estimat Glomerular Filtration Rate 54 Date/Time Source Procedure Growth Status 07/06/17 01:10 Blood Peripheral Aerobic Blood Culture - Preliminary NO GROWTH IN 1 DAY Resulted 07/06/17 01:10 Blood Peripheral Anaerobic Blood Culture - Preliminary NO GROWTH IN 1 DAY Resulted Imaging Last Impressions Abdomen X-Ray 07/07/17 0600 Signed Impressions: Service Date/Time: Friday, July 07, 2017 03:20 - CONCLUSION: Mild gaseous distention of small bowel Boubacar Pearl MD Upper Extremity Ultrasound 07/07/17 0000 Signed Impressions: Service Date/Time: Friday, July 07, 2017 08:46 - CONCLUSION: 1. No evidence of deep venous thrombosis. Mukul Moralez MD Chest X-Ray 07/05/17 0000 Signed Impressions: Service Date/Time: Wednesday, July 05, 2017 21:26 - CONCLUSION: 1. Cardiomegaly 2. Left lower lobe atelectasis versus pneumonia. Mukul Moralez MD Abdomen/Pelvis CT 07/05/17 0000 Signed Impressions: Service Date/Time: Wednesday, July 05, 2017 23:20 - CONCLUSION: Distal small bowel obstruction Boubacar Pearl MD Physical Exam HEENT: Normocephalic; atraumatic; no jaundice. CHEST: Resp. even/unlabored, diminished breath sounds CARDIAC: RRR ABDOMEN: Soft, nondistended, nontender; no hepatosplenomegaly; bowel sounds are present in all four quadrants. NGT to LIWS minimal green bilious gastric output EXTREMITIES: No clubbing, cyanosis, or edema. AESTHETICIAN: Lethargic, follows commands (Mercedez Sadler) Assessment and Plan Plan ASSESSMENT: - ? Upper GIB, Coffee Ground Emesis. Brought to ER for coffee ground emesis. On Meloxicam. No javad red bleeding. HH dropped from 10.0/30.9 to 8.0/24.6 n(although this is closer to baseline. He has NGT with minimal gastric output- green bilious material. Nurse reports that he had a dark tarry stool in ER, but not here. Of note, spoke with Dr. Patton yesterday and she saw a brown colored stool- hemoccult positive, but it was not dark. Unclear if this is what they are referring to or if he had another bowel movement yesterday (it was not documented). - Small bowel obstruction. CT scan abdomen and pelvis (07/05/17)----> distal small bowel obstruction with marked dilated stomach, prominently dilated small bowel to the level of the distal ileum with a transition point in the right lower quadrant, colon is normal in caliber, no discrete masses. No known surgeries and no scars noted on abdomen. Rpt. KUB (07/07/17)---> Mild gaseous distention of small bowel. NGT to LIWS with minimal green bilious material. Clinically, no distention/abdominal pain. Will clamp NGT and start clears if no n/v. Cont. Zosyn. - Anemia with hx of RENETTA. He was hospitalized in April of 2017 and noted to have a H/H of 7.4-8.4. On admission, he was noted to have an HH dropped from 10.0 to now 8.0/24.6. But his baseline is 7.4-8.4 and it is likely that he was hemoconcentrated with the 10.0 hgb. No signs of active bleeding. Requesting something to drink. - AMS, lethargy. Pt has a hx of dementia, schizophrenia, and takes lactulose for elevated ammonia level. Ammonia 35. - Leukocytosis, Lactic acid 2.9. Blood cx no growth 1 day. Zosyn. - Coagulopathy, mild. - PEMA. Creat 1.53. Has been vomiting, likley secondary to dehydration. - Elevated alk phosph. T. Bili 0.1, AST 22, ALT 32, Akl PHosph 179. Albumin is 3.6. Mild coagulopathy. Liver unremarkable on CT - Hx afib, not on anticoagulation. Currently sinus tachy, mild 102 - HTN, schizophrenia, dementia, anxiety, depression, hypothyroidism, hyperlipidemia, hypertension, seizure disorder, per attending. PLAN: - Plan for egd in am - Obtain consents - Clamp NGT - Sips of water - NPO after MN - D/C Protonix Gtt - Protonix 40mg IV BID - Cont. Zosyn - Monitor HH - Transfuse as necessary - KUB in am - CBC, BMP in am - Notify GI of active bleeding - Supportive care - Further recommendations to follow based on results of above - Pt seen and examined by Dr. Lowery and myself and this note is written [facility] (Mercedez Sadler) Physician Comments Seen and examined with BEN, egd planned for tomorrow. No active bleeding. NG in place. (Giovanni Lowery MD) Mercedez Sadler Jul 07, 2017 12:54 Giovanni Lowery MD Jul 07, 2017 16:11
[2017-07-07] MEDS: PANTOPRAZOLE SODIUM 40 MG VIAL IV PUSH SCH (14:36)
[2017-07-07] MEDS ORDERED: SODIUM CHLOR 0.9% 250 ML INJ 250 ML IV ONE (16:30)
--- NOTE | 2017-07-07 17:23 | HHI.HCPN ---
Attempted to contact patient's son via telephone to introduce Palliative Care, provide an update on the patient's clinical condition and discuss current medical treatment goals. Message left with Palliative Care contact information; awaiting return phone call. Vikki Oliver Jul 07, 2017 17:23
[2017-07-08] VITALS (25 sets, daily range): BP systolic 99–133; BP diastolic 56–65; PULSE 85–99; RESP 14–26; TEMP 98.3–99; O2SAT 92–100
[2017-07-08] MEDS: PIPERACIL-TAZO 3.375 GM PREMIX 50 ML IV SCH ×3 (02:57→15:56)
[2017-07-08] MEDS: PANTOPRAZOLE SODIUM 40 MG VIAL IV PUSH SCH ×2 (02:57→15:28)
[2017-07-08] MEDS: CHLORHEXIDINE GLUCONATE 2 % 1 PACK (2 CLOTHS) TOP SCH (02:58)
--- NOTE | 2017-07-08 04:53 | RADRPT ---
EXAM DATE/TIME: 07/08/2017 03:12 [facility] COMPARISON: ABDOMEN KUB ONLY, July 07, 2017, 3:20. INDICATIONS : Abdominal distention. MEDICAL HISTORY : Gastroesophageal reflux disease. Cardiovascular disease. Hypertension. SURGICAL HISTORY : None. ENCOUNTER: Subsequent ACUITY: 4 - 6 days PAIN SCORE: Non-responsive. LOCATION: Bilateral Abdomen FINDINGS: There is mild gaseous distention of bowel loops throughout the abdomen. This appears to be mostly sma ll bowel. There are phleboliths seen overlying the pelvis. Vascular calcifications noted. Degenerativ e changes present in the spine and right hip. Total hip are less than the left. CONCLUSION: Diffuse gaseous distention of bowel. Boubacar Pearl MD on July 08, 2017 at 4:50 Board Certified Radiologist. This report was verified electronically.
[2017-07-08] MEDS: LEVOTHYROXINE SODIUM 100 MCG VIAL IV PUSH SCH (06:35)
[2017-07-08] MEDS: DEXTROSE 5%-LACTATED RING INJ 1,000 ML IV SCH ×2 (08:15→15:25)
[2017-07-08 08:47] LABS: AUTOMATED NEUTROPHIL # 6.7 TH/MM3 (1.8-7.7); BASOPHIL # 0.1 TH/MM3 (0-0.2); BASOPHIL % 0.9 % (0.0-2.0); EOSINOPHIL # 0.4 TH/MM3 (0-0.4); EOSINOPHIL % 4.1 % (0.0-4.0); HEMATOCRIT 23.6 % (39.0-51.0); HEMO FLAGS DIFF FINAL; LYMPH % 20.4 % (9.0-44.0); LYMPHOCYTE # 2.1 TH/MM3 (1.0-4.8); MEAN CELL VOLUME 98.4 FL (80.0-100.0); MEAN CORPUSCULAR HEMOGLOBIN 31.8 PG (27.0-34.0); MEAN CORPUSCULAR HGB CONC 32.3 % (32.0-36.0); NEUT % 64.6 % (16.0-70.0); PLATELET COUNT 265 TH/MM3 (150-450); RED CELL DISTRIBUTION WIDTH 15.3 % (11.6-17.2); WHITE BLOOD COUNT 10.4 TH/MM3 (4.0-11.0)
[2017-07-08 09:17] LABS: BICARBONATE 26.2 MEQ/L (21.0-32.0); POTASSIUM 3.7 MEQ/L (3.5-5.1)
[2017-07-08] MEDS: PHENYTOIN INJ 100 MG/2 ML VIAL IV SCH ×3 (09:53→21:16)
[2017-07-08] MEDS: SODIUM CHLORIDE 0.9% FLUSH 10 ML FLUSH IV FLUSH SCH ×2 (09:53→21:16)
[2017-07-08] MEDS: DOCUSATE SODIUM 50 MG/SENNA 8.6 MG TAB PO SCH ×2 (09:53→21:16)
--- NOTE | 2017-07-08 11:58 | HHI.PR ---
Subjective Remarks Follow-up for small bowel obstruction Patient pulled NG out today. There was minimal output from the NG. He is scheduled for EGD today. Patient had no complaints. Denied any nausea or vomiting. Deny any abdominal pain. Objective Vitals Vital Signs Date Time Temp Pulse Resp B/P (MAP) Pulse Ox O2 Delivery O2 Flow Rate FiO2 07/08/17 10:00 90 20 133/60 (84) 100 07/08/17 09:00 91 21 123/60 (81) 99 07/08/17 08:00 98.3 93 16 126/58 (80) 97 07/08/17 07:57 97 21 07/08/17 07:00 96 17 133/60 (84) 96 07/08/17 06:00 99 07/08/17 04:00 98.4 92 24 99/62 (74) 97 07/08/17 04:00 92 07/08/17 02:00 96 07/08/17 00:00 99 07/08/17 00:00 98.7 99 21 102/56 (71) 98 07/07/17 22:00 96 07/07/17 20:28 96 07/07/17 20:00 98.5 88 16 118/55 (76) 99 07/07/17 20:00 88 07/07/17 18:00 90 16 132/62 (85) 98 07/07/17 18:00 90 07/07/17 17:00 90 7 126/61 (82) 97 07/07/17 16:00 85 07/07/17 16:00 98.1 85 8 128/60 (82) 97 07/07/17 15:00 87 11 104/49 (67) 97 07/07/17 14:00 90 20 123/84 (97) 100 07/07/17 14:00 90 07/07/17 13:00 90 15 114/61 (78) 100 07/07/17 12:00 98.9 93 20 94/46 (62) 100 07/07/17 12:00 93 I/O 07/07/17 07/07/17 07/07/17 07/08/17 07/08/17 07/08/17 06:59 14:59 22:59 06:59 14:59 22:59 Intake Total 82 ml 595 ml 1800 ml Output Total 825 ml 825 ml 500 ml Balance -825 ml 82 ml -230 ml -500 ml 1800 ml Intake IV Total 82 ml 595 ml 1800 ml Output Urine Total 650 ml 675 ml 500 ml Stool Total 0 ml 0 ml Gastric Drainage Total 175 ml 150 ml Result Diagram: 07/08/17 0537 07/08/17 0537 Imaging Last Impressions Abdomen X-Ray 07/08/17 0600 Signed Impressions: Service Date/Time: June 03:12 - CONCLUSION: Diffuse gaseous distention of bowel. Boubacar Pearl MD Upper Extremity Ultrasound 07/07/17 0000 Signed Impressions: Service Date/Time: Friday, July 07, 2017 08:46 - CONCLUSION: 1. No evidence of deep venous thrombosis. Mukul Moralez MD Chest X-Ray 07/05/17 0000 Signed Impressions: Service Date/Time: Wednesday, July 05, 2017 21:26 - CONCLUSION: 1. Cardiomegaly 2. Left lower lobe atelectasis versus pneumonia. Mukul Moralez MD Abdomen/Pelvis CT 07/05/17 0000 Signed Impressions: Service Date/Time: Wednesday, July 05, 2017 23:20 - CONCLUSION: Distal small bowel obstruction Boubacar Pearl MD Objective Remarks GENERAL: in NAD CARDIOVASCULAR: Regular rate and rhythm without murmurs, gallops, or rubs. RESPIRATORY: Breath sounds equal bilaterally. No accessory muscle use. GASTROINTESTINAL: Abdomen soft, non-tender, nondistended. EXT: Minimal swelling of the right hand. No tenderness palpation of the hand. Medications and IVs Current Medications Ondansetron HCl (Zofran Inj) 4 mg ONCE ONCE IVP Last administered on 22:44; Start 07/05/17 at 21:15; Stop 07/05/17 at 21:16; Status DC Sodium Chloride (NS Flush) 2 ml UNSCH PRN IVF FLUSH AFTER USING IV ACCESS Last administered on 07/05/17 22:44; Start 07/05/17 at 21:15; Stop 07/06/17 at 05: 11; Status DC Pantoprazole Sodium 80 mg/ Sodium Chloride 35 ml @ 420 mls/hr Q5M ONCE IV Last administered on 07/05/17 22:44; Start 07/05/17 at 21:14; Stop 07/05/17 at 21:18; Status DC Pantoprazole Sodium 80 mg/ Sodium Chloride 100 ml @ 10 mls/hr Q10H IV Last administered on 07/07/17 03:55; Start 07/05/17 at 21:14; Stop 07/07/17 at 12: 55; Status DC Piperacillin Sod/ Tazobactam Sod 100 ml @ 200 mls/hr ONCE ONCE IV Last administered on 07/06/17 01:27; Start 07/06/17 at 00:00; Stop 07/06/17 at 00 :29; Status DC Vancomycin HCl 1000 mg/Sodium Chloride 250 ml @ 250 mls/hr ONCE ONCE IV Last administered on 07/06/17 02:11; Start 07/06/17 at 00:00; Stop 07/06/17 at 00 :59; Status DC Sodium Chloride 500 ml @ 500 mls/hr BOLUS ONCE IV Last administered on 02:30; Start 07/06/17 at 02:30; Stop 07/06/17 at 03:29; Status DC Sodium Chloride (NS Flush) 2 ml BID IV FLUSH ; Start 07/06/17 at 09:00; Stop 07/06/17 at 09:00; Status DC Sodium Chloride (NS Flush) 2 ml UNSCH PRN IVF FLUSH AFTER USING IV ACCESS; Start 07/06/17 at 02:45; Stop 07/06/17 at 07:34; Status DC Phenytoin Sodium (Dilantin Inj) 200 mg Q12HR IV Last administered on 09:53; Start 07/06/17 at 09:00 Phenytoin Sodium (Dilantin Inj) 100 mg DAILY@1200 IV Last administered on 07/07 12:43; Start 07/06/17 at 12:00 Sodium Chloride 1,000 ml @ 125 mls/hr Q8H IV Last administered on 07/06/17 16:14; Start 07/06/17 at 07:04; Stop 07/06/17 at 17:43; Status DC Sodium Chloride (NS Flush) 2 ml UNSCH PRN IV FLUSH FLUSH AFTER USING IV ACCESS ; Start 07/06/17 at 07:15 Sodium Chloride (NS Flush) 2 ml BID IV FLUSH Last administered on 07/08/17 09 :53; Start 07/06/17 at 09:00 Ondansetron HCl (Zofran Inj) 4 mg Q6H PRN IV PUSH NAUSEA OR VOMITING; Start at 07:15 Albuterol Sulfate (Albuterol Neb) 2.5 mg Q2HR NEB PRN INH SOB/WHEEZING; Start 07/06/17 at 07:15 Miscellaneous Information 1 Q361D XX ; Start 07/06/17 at 07:15 Chlorhexidine Gluconate (Chlorhexidine 2% Cloth) 3 pack Taper DAILY@04 TOP Last administered on 07/08/17 02:58; Start 07/07/17 at 04:00; Stop 07/03/18 at 03:59 Chlorhexidine Gluconate (Chlorhexidine 2% Cloth) 3 pack UNSCH PRN TOP HYGIENIC CARE; Start 07/06/17 at 07:15 Senna/Docusate Sodium (Ramona-Colace) 1 tab BID PO Last administered on 09:53; Start 07/06/17 at 09:00 Magnesium Hydroxide (Milk Of Magnesia Liq) 30 ml Q12H PRN PO MILD - MODERATE CONSTIPATION; Start 07/06/17 at 07:15 Sennosides (Senokot) 17.2 mg Q12H PRN PO MODERATE - SEVERE CONSTIPATION; Start 07/06/17 at 07:15 Bisacodyl (Dulcolax Supp) 10 mg DAILY PRN RECTAL SEVERE CONSITIPATION; Start 07/06/17 at 07:15 Lactulose (Lactulose Liq) 30 ml DAILY PRN PO SEVERE CONSITIPATION; Start 07/06 at 07:15 Dextrose/Lactated Ringer's 1,000 ml @ 125 mls/hr Q8H IV Last administered on 07/08/17 15:25; Start 07/06/17 at 08:15 Piperacillin Sod/ Tazobactam Sod 50 ml @ 100 mls/hr Q6H IV Last administered on 07/08/17 09:52; Start 07/06/17 at 09:00 Levothyroxine Sodium (Synthroid Inj) 25 mcg DAILY@06 IV PUSH Last administered on 07/08/17 06:35; Start 07/07/17 at 06:00 Acetaminophen (Tylenol) 500 mg ONCE ONCE PO Last administered on 07/07/17 04 :15; Start 07/07/17 at 04:15; Stop 07/07/17 at 04:16; Status DC Pantoprazole Sodium (Protonix Inj) 40 mg Q12H IV PUSH Last administered on 15:28; Start 07/07/17 at 15:00 Sodium Chloride 250 ml @ 15 mls/hr ONCE ONCE IV Last administered on 15:24; Start 07/07/17 at 16:30; Stop 07/08/17 at 09:09; Status DC Furosemide (Lasix Inj) 40 mg STAT ONCE IV PUSH ; Start 07/08/17 at 13:00; Stop 07/08/17 at 13:00; Status DC A/P Assessment and Plan 76 y/o who p/w melena Small bowel obstruction -GI consulted and following. Patient is scheduled for EGD today. Will let GI decided they want to replace the NG tube. -On IV fluids. -Management per GI. GI bleed -Patient scheduled for EGD today. -Patient on Protonix and Reglan. -Continue to trend H&H and monitor for GI bleed. Dementia/Schizophrenia/Seizures disorder/Anxiety/h/o hyperammonemia -Dilantin level is 13.9. Continue Dilantin 200 mg IV q12 and 100 mg IV at noon. -zyprexa held. . Swelling of right hand -Most likely secondary to superficial clot since occur after attempted IV placement. -Ultrasound Doppler showed no thrombosis. -Improving drastically. Paroxysmal Atrial fibrillation/Hypertension -Metoprolol was held secondary to GI bleed. -Hold metoprolol currently due to concern for GI bleeding. Acute kidney injury -Continue to monitor. Strict ins and outs. Avoid nephrotoxins. SIRS response to GI bleeding -Treated empirically for sepsis, but no infectious source. His cultures are negative so far and there is no source of infection will discontinue antibiotics. Anemia -Has chronic anemia and now with acute blood loss. Followup Hgb q6 hours. Transfuse as needed for Hgb <7. Type and Screen. Hypothyroidism -Synthroid 25 mcg IV daily PROPH: SCD for DVT prophylaxis. Pharmacologic DVT prophylaxis contraindicated in setting of concern for GI bleeding. Protonix drip. Discharge Planning Palliative care following. Caterina Ledesma MD Jul 08, 2017 11:58
--- NOTE | 2017-07-08 12:10 | HHI.HCPN ---
Reason for visit a. To assist with evaluation and management of symptoms including: Nausea/ vomiting, debility, pain, confusion b. To assist medical decision maker(s) with: better understanding of current medical conditions; weighing benefits/burdens of medical treatment options; making medical treatment decisions. . Subjective/Interval History Mr. Rivera was seen and assessed in the intensive care unit, room 509. He is awake and alert, pleasantly confused. He responds to questions but speech is non -sensical at times; able to follow simple commands. He is oriented to self. When asked if he knows where he is he responds, " Well, I'm not sure I can explain that to you." Hemodynamically stable. Oxygen saturation in the mid 90s on room air. Lab work 07/08/17: = WBC: 10.4, hemoglobin 7.6, hematocrit 23.6, platelets 265, neutrophils 64.6% = Sodium 148, potassium 3.7, chloride 113, carbon dioxide 26.2, glucose 93, calcium 8.3 = BUN: 23, creatinine 1.48, GFR 56 Patient denies dyspnea or pain. Nausea and vomiting has resolved. Patient has removed NGT several times per nursing report and remains out at this time. Plan for EGD sometime today. KUB this morning showing mild gaseous distention of bowel loops throughout the abdomen, appears to be mostly in the small bowel. There are phleboliths seen overlying the pelvis. Vascular calcifications noted. Gastroenterology continues to follow. . Family/friend interactions Spoke briefly to the patient's [place] (Mg) in [place] An update was provided on the patient's clinical condition. The patient's son was unable to speak at length as he was getting ready to go to work, but he will be available via phone before noon tomorrow. He expresses ongoing aggressive goals. . Advance Directives Durable Power of Pool Coordinator: Copy in medical record (05/04/2014 -- THIS IS A [place] [employer] POWER OF DIRECT SERVICE PROFESSIONAL DOCUMENT. IT DOES NOT REFER TO HEALTH CARE DECISION MAKING. ) Advance Directive Specifics Documented care wishes: Patient's 2 children ( Mg and Suzi) are the "co-health care proxy decision-maker." . Objective Vital Signs Date Time Temp Pulse Resp B/P (MAP) Pulse Ox O2 Delivery O2 Flow Rate FiO2 07/08/17 10:00 90 20 133/60 (84) 100 07/08/17 09:00 91 21 123/60 (81) 99 07/08/17 08:00 98.3 93 16 126/58 (80) 97 07/08/17 07:57 97 21 07/08/17 07:00 96 17 133/60 (84) 96 07/08/17 06:00 99 07/08/17 04:00 98.4 92 24 99/62 (74) 97 07/08/17 04:00 92 07/08/17 02:00 96 07/08/17 00:00 99 07/08/17 00:00 98.7 99 21 102/56 (71) 98 07/07/17 22:00 96 07/07/17 20:28 96 07/07/17 20:00 98.5 88 16 118/55 (76) 99 07/07/17 20:00 88 07/07/17 18:00 90 16 132/62 (85) 98 07/07/17 18:00 90 07/07/17 17:00 90 7 126/61 (82) 97 07/07/17 16:00 85 07/07/17 16:00 98.1 85 8 128/60 (82) 97 07/07/17 15:00 87 11 104/49 (67) 97 07/07/17 14:00 90 20 123/84 (97) 100 07/07/17 14:00 90 07/07/17 13:00 90 15 114/61 (78) 100 07/07/17 12:00 98.9 93 20 94/46 (62) 100 07/07/17 12:00 93 Intake & Output 07/08/17 07/08/17 07:00 19:00 Intake Total 1800 ml Output Total 500 ml Balance -500 ml 1800 ml Intake IV Total 1800 ml Output Urine Total 500 ml Stool Total 0 ml . Physical Exam CONSTITUTIONAL/GENERAL: This is a frail, elderly male patient in no acute distress TUBES/LINES/DRAINS: PIV x2, condom catheter SKIN: No jaundice, rashes, or lesions. No wounds seen anteriorly. Skin temperature appropriate. Not diaphoretic. HEAD: Atraumatic. Normocephalic. EYES: Pupils equal and round. No scleral icterus. No injection or drainage. Fundi not examined. ENT: Hearing grossly normal. Nose without bleeding or purulent drainage. Poor dentition NECK: Trachea midline. Supple, nontender. No palpable thyroid enlargement or nodularity. CARDIOVASCULAR: Regular rate and rhythm without murmurs, gallops, or rubs. RESPIRATORY/CHEST: Symmetric, unlabored respirations. Clear to auscultation. Breath sounds equal bilaterally. No accessory muscle use GASTROINTESTINAL: Abdomen soft, non-tender, nondistended. No guarding. GENITOURINARY: Without palpable bladder distension. MUSCULOSKELETAL: Extremities without clubbing, cyanosis, or edema. LYMPHATICS: No palpable cervical or supraclavicular adenopathy. NEUROLOGICAL: Awake and alert. Pleasantly confused. Oriented to self only. Responds to questions; speech is nonsensical at time. Follows commands. PSYCHIATRIC: No obvious anxiety/depression. No apparent hallucinations or other psychotic thought process. . Diagnostic Tests Laboratory Laboratory Tests Test 07/05/17 21:50 07/05/17 23:55 07/05/17 23:58 07/06/17 08:30 White Blood Count 14.2 TH/MM3 (4.0-11.0) 13.2 TH/MM3 (4.0-11.0) 12.5 TH/MM3 (4.0-11.0) Red Blood Count 3.26 MIL/MM3 (4.50-5.90) 3.14 MIL/MM3 (4.50-5.90) 2.63 MIL/MM3 (4.50-5.90) Hemoglobin 10.1 GM/DL (13.0-17.0) 10.0 GM/DL (13.0-17.0) 8.2 GM/DL (13.0-17.0) Hematocrit 31.9 % (39.0-51.0) 30.9 % (39.0-51.0) 25.5 % (39.0-51.0) Mean Corpuscular Volume 97.9 FL (80.0-100.0) 98.6 FL (80.0-100.0) 97.0 FL (80.0-100.0) Mean Corpuscular Hemoglobin 31.1 PG (27.0-34.0) 31.8 PG (27.0-34.0) 31.2 PG (27.0-34.0) Mean Corpuscular Hemoglobin Concent 31.8 % (32.0-36.0) 32.3 % (32.0-36.0) 32.2 % (32.0-36.0) Red Cell Distribution Width 15.7 % (11.6-17.2) 15.4 % (11.6-17.2) 15.5 % (11.6-17.2) Platelet Count 434 TH/MM3 (150-450) 375 TH/MM3 (150-450) 308 TH/MM3 (150-450) Mean Platelet Volume 7.6 FL (7.0-11.0) 7.9 FL (7.0-11.0) 7.7 FL (7.0-11.0) Neutrophils (%) (Auto) 77.3 % (16.0-70.0) 72.4 % (16.0-70.0) Lymphocytes (%) (Auto) 12.9 % (9.0-44.0) 17.3 % (9.0-44.0) Monocytes (%) (Auto) 8.7 % (0.0-8.0) 8.9 % (0.0-8.0) Eosinophils (%) (Auto) 0.7 % (0.0-4.0) 0.9 % (0.0-4.0) Basophils (%) (Auto) 0.4 % (0.0-2.0) 0.5 % (0.0-2.0) Neutrophils # (Auto) 10.9 TH/MM3 (1.8-7.7) 9.6 TH/MM3 (1.8-7.7) Lymphocytes # (Auto) 1.8 TH/MM3 (1.0-4.8) 2.3 TH/MM3 (1.0-4.8) Monocytes # (Auto) 1.2 TH/MM3 (0-0.9) 1.2 TH/MM3 (0-0.9) Eosinophils # (Auto) 0.1 TH/MM3 (0-0.4) 0.1 TH/MM3 (0-0.4) Basophils # (Auto) 0.1 TH/MM3 (0-0.2) 0.1 TH/MM3 (0-0.2) CBC Comment DIFF FINAL DIFF FINAL Differential Comment Prothrombin Time 11.9 SEC (9.8-11.6) Prothromb Time International Ratio 1.1 RATIO Activated Partial Thromboplast Time 23.5 SEC (24.3-30.1) Blood Urea Nitrogen 56 MG/DL (7-18) Creatinine 1.66 MG/DL (0.60-1.30) Random Glucose 147 MG/DL (74-106) Total Protein 8.7 GM/DL (6.4-8.2) Albumin 3.6 GM/DL (3.4-5.0) Calcium Level 9.1 MG/DL (8.5-10.1) Alkaline Phosphatase 179 U/L (45-117) Aspartate Amino Transf (AST/SGOT) 22 U/L (15-37) Alanine Aminotransferase (ALT/SGPT) 32 U/L (12-78) Total Bilirubin 0.1 MG/DL (0.2-1.0) Sodium Level 144 MEQ/L (136-145) Potassium Level 4.5 MEQ/L (3.5-5.1) Chloride Level 105 MEQ/L (98-107) Carbon Dioxide Level 30.7 MEQ/L (21.0-32.0) Anion Gap 8 MEQ/L (5-15) Estimat Glomerular Filtration Rate 49 ML/MIN (>89) Ammonia 35 MCMOL/L (11-32) Phenytoin (Dilantin) Level 13.9 MCG/ML (10.0-20.0) Lactic Acid Level 2.9 mmol/L (0.4-2.0) 1.6 mmol/L (0.4-2.0) Test 07/06/17 14:12 07/06/17 15:40 07/06/17 17:33 07/06/17 23:42 Hemoglobin 8.2 GM/DL (13.0-17.0) 7.7 GM/DL (13.0-17.0) 8.2 GM/DL (13.0-17.0) Nasal Screen MRSA (PCR) MRSA NOT DETECTED (NOT Test 07/07/17 03:57 07/07/17 13:00 07/07/17 18:40 07/08/17 05:37 White Blood Count 11.4 TH/MM3 (4.0-11.0) 10.4 TH/MM3 (4.0-11.0) Red Blood Count 2.53 MIL/MM3 (4.50-5.90) 2.40 MIL/MM3 (4.50-5.90) Hemoglobin 8.0 GM/DL (13.0-17.0) 7.0 GM/DL (13.0-17.0) 7.0 GM/DL (13.0-17.0) 7.6 GM/DL (13.0-17.0) Hematocrit 24.6 % (39.0-51.0) 23.6 % (39.0-51.0) Mean Corpuscular Volume 97.4 FL (80.0-100.0) 98.4 FL (80.0-100.0) Mean Corpuscular Hemoglobin 31.8 PG (27.0-34.0) 31.8 PG (27.0-34.0) Mean Corpuscular Hemoglobin Concent 32.7 % (32.0-36.0) 32.3 % (32.0-36.0) Red Cell Distribution Width 14.9 % (11.6-17.2) 15.3 % (11.6-17.2) Platelet Count 266 TH/MM3 (150-450) 265 TH/MM3 (150-450) Mean Platelet Volume 7.5 FL (7.0-11.0) 7.9 FL (7.0-11.0) Neutrophils (%) (Auto) 81.1 % (16.0-70.0) 64.6 % (16.0-70.0) Lymphocytes (%) (Auto) 7.5 % (9.0-44.0) 20.4 % (9.0-44.0) Monocytes (%) (Auto) 8.8 % (0.0-8.0) 10.0 % (0.0-8.0) Eosinophils (%) (Auto) 1.8 % (0.0-4.0) 4.1 % (0.0-4.0) Basophils (%) (Auto) 0.8 % (0.0-2.0) 0.9 % (0.0-2.0) Neutrophils # (Auto) 9.3 TH/MM3 (1.8-7.7) 6.7 TH/MM3 (1.8-7.7) Lymphocytes # (Auto) 0.9 TH/MM3 (1.0-4.8) 2.1 TH/MM3 (1.0-4.8) Monocytes # (Auto) 1.0 TH/MM3 (0-0.9) 1.0 TH/MM3 (0-0.9) Eosinophils # (Auto) 0.2 TH/MM3 (0-0.4) 0.4 TH/MM3 (0-0.4) Basophils # (Auto) 0.1 TH/MM3 (0-0.2) 0.1 TH/MM3 (0-0.2) CBC Comment DIFF FINAL DIFF FINAL Differential Comment Blood Urea Nitrogen 43 MG/DL (7-18) 23 MG/DL (7-18) Creatinine 1.53 MG/DL (0.60-1.30) 1.48 MG/DL (0.60-1.30) Random Glucose 140 MG/DL (74-106) 93 MG/DL (74-106) Total Protein 7.2 GM/DL (6.4-8.2) Albumin 3.0 GM/DL (3.4-5.0) Calcium Level 8.3 MG/DL (8.5-10.1) 8.6 MG/DL (8.5-10.1) Alkaline Phosphatase 146 U/L (45-117) Aspartate Amino Transf (AST/SGOT) 22 U/L (15-37) Alanine Aminotransferase (ALT/SGPT) 24 U/L (12-78) Total Bilirubin 0.3 MG/DL (0.2-1.0) Sodium Level 148 MEQ/L (136-145) 148 MEQ/L (136-145) Potassium Level 3.5 MEQ/L (3.5-5.1) 3.7 MEQ/L (3.5-5.1) Chloride Level 112 MEQ/L (98-107) 113 MEQ/L (98-107) Carbon Dioxide Level 27.3 MEQ/L (21.0-32.0) 26.2 MEQ/L (21.0-32.0) Anion Gap 9 MEQ/L (5-15) 9 MEQ/L (5-15) Estimat Glomerular Filtration Rate 54 ML/MIN (>89) 56 ML/MIN (>89) . Result Diagram: 07/08/17 0537 07/08/17 0537 Microbiology Microbiology Date/Time Source Procedure Growth Status 07/06/17 01:10 Blood Peripheral Aerobic Blood Culture - Preliminary NO GROWTH IN 2 DAYS Resulted 07/06/17 01:10 Blood Peripheral Anaerobic Blood Culture - Preliminary NO GROWTH IN 2 DAYS Resulted 07/05/17 23:55 Blood Peripheral Aerobic Blood Culture - Preliminary NO GROWTH IN 2 DAYS Resulted 07/05/17 23:55 Blood Peripheral Anaerobic Blood Culture - Preliminary NO GROWTH IN 2 DAYS Resulted Imaging Last 72 hours Impressions Abdomen X-Ray 07/08/17 0600 Signed Impressions: Service Date/Time: June 03:12 - CONCLUSION: Diffuse gaseous distention of bowel. Boubacar Pearl MD Abdomen X-Ray 07/07/17 0600 Signed Impressions: Service Date/Time: Friday, July 07, 2017 03:20 - CONCLUSION: Mild gaseous distention of small bowel Boubacar Pearl MD Upper Extremity Ultrasound 07/07/17 0000 Signed Impressions: Service Date/Time: Friday, July 07, 2017 08:46 - CONCLUSION: 1. No evidence of deep venous thrombosis. Mukul Moralez MD . Assessment and Plan Disease Oriented Problem List: (1) Dementia (2) SBO (small bowel obstruction) (3) SIRS (systemic inflammatory response syndrome) (4) GI bleed (5) Leukocytosis (6) Acute kidney injury (7) Seizures Symptom Scale: (1) Pain (2) Nausea & vomiting (3) Debility (4) Confusion Pertinent Non-Medical Issues Psychosocial: The patient was born and raised in [facility]. He was for about 20 years but for many years. He had 4 sons and 2 daughters, one daughter is . Spiritual: No anglican affiliation. Legal: Power of finance attorney completed. Ethical issues impacting care: Patient unable to participate in medical decision -making, not capacitated secondary to dementia. HCP are his children. . Important Contacts Son Chad Rivera Jr who resides in [place] Daughter Suzi Ortiz who resides in the [facility] . . Prognosis Mr. Rivera is a 76 y/o male known to palliative care with a medical history of dementia, atrial fibrillation on anticoagulation, seizures, hypertension, schizophrenia and chronic kidney disease. Clinical course complicated by GI bleed, possible left lower lobe infiltrate and concern for aspiration of stomach/ intestinal contents with small bowel obstruction. Patient at a very high risk for further complications. Prognosis is guarded given multiple chronic comorbidities, acute events, physical deconditioning and advanced age. . Code Status: Full Code Plan * FULL CODE * Decision-making: Patient's 2 children ( Mg and Suzi) are the "co- health care proxy decision-maker. During previous hospitalization, all available children were previously contacted by palliative care. All deferred health care decision making to two of the children Chad and Suzi as co- HCP. A "health care proxy designation form" completed 09/04/16, was sent from the long-term care facility where the patient resides; it confirms Mg Rivera and Suzi Ortiz legal medical decision makers. * AGGRESSIVE GOALS * Plan for EGD later today. * Per notes on 07/06/17, Dr. Patton spoke with the patient's son (Mg Rivera) who lives in [place] to discuss patient's advancing dementia, now with a GI bleed and SBO is at high risk for further decompensation. Mg stated "as of now we would want him to be intubated and FULL CODE unless he is basically brain-". * Spoke briefly to the patient's son (Mg) in [place] An update was provided on the patient's clinical condition. The patient's son was unable to speak at length as he was getting ready to go to work, but he will be available via phone before noon tomorrow. He expresses ongoing aggressive goals. * Discussed with bedside nurse, Alva * Symptom management - confusion: Patient with advancing dementia. Oriented to person only. * Symptom management - nausea/vomiting: Upon admission, patient had copious amounts of dark emesis concerning for possible feculent emesis with coffee ground emesis. Nausea and vomiting has resolved. Patient has removed NGT several times per nursing report and remains out at this time. Plan for EGD sometime today. KUB this morning showing mild gaseous distention of bowel loops throughout the abdomen, appears to be mostly in the small bowel. There are phleboliths seen overlying the pelvis. Vascular calcifications noted. Gastroenterology continues to follow. * Symptom management - debility: Patient resident of long-term facility. Requiring assistance with all ADLs. Likely to continue to worsen. * Symptom management - pain: Patient does not appear to be uncomfortable at this time. * Palliative care will continue to follow this patient throughout his hospitalization to establish trust, assist with symptom management and clarification of medical treatment goals. . Attestation To help prompt me to consider important information that might be impacting today's encounter and assessment, information from prior notes written by myself or my colleagues may have been "brought forward" into today's note. My signature on this note, however, is an attestation that I personally performed the exam, history, and/or decision-making noted today, and, unless otherwise indicated, the interactions with patient, family, and staff as well as the review of records all occurred today. I also attest that the listed assessment and stated plan reflect my best clinical judgment today based on the combination of historical information, prior notes, and today's exam/ interactions. When time spent is documented, it refers only to time spent today by the signer, or if indicated, combined time spent today by collaborating physician/nurse practitioner. . Vikki Oliver Jul 08, 2017 12:10
[2017-07-08] MEDS ORDERED: FUROSEMIDE 40 MG/4 ML VIAL IV PUSH ONE (13:00)
--- NOTE | 2017-07-08 16:12 | HHI.GIFU ---
Subjective Remarks Resting in bed. He has pulled out NGT x 2 day. No n/v. Pt more alert, pleasantly confused. No n/v. No abdominal pain. States the only pain is his IV if he moves a certain way. No BM. (Mercedez Sadler) Objective Vitals I&O Vital Signs Date Time Temp Pulse Resp B/P (MAP) Pulse Ox O2 Delivery O2 Flow Rate FiO2 07/08/17 16:01 98.9 86 16 131/61 99 07/08/17 15:59 98.9 07/08/17 15:51 99.0 86 14 116/58 99 07/08/17 10:00 90 20 133/60 (84) 100 07/08/17 09:00 91 21 123/60 (81) 99 07/08/17 08:00 98.3 93 16 126/58 (80) 97 07/08/17 07:57 97 21 07/08/17 07:00 96 17 133/60 (84) 96 07/08/17 06:00 99 07/08/17 04:00 98.4 92 24 99/62 (74) 97 07/08/17 04:00 92 07/08/17 02:00 96 07/08/17 00:00 99 07/08/17 00:00 98.7 99 21 102/56 (71) 98 07/07/17 22:00 96 07/07/17 20:28 96 07/07/17 20:00 98.5 88 16 118/55 (76) 99 07/07/17 20:00 88 07/07/17 18:00 90 16 132/62 (85) 98 07/07/17 18:00 90 07/07/17 17:00 90 7 126/61 (82) 97 I/O 07/07/17 07/07/17 07/07/17 07/08/17 07/08/17 07/08/17 07:00 15:00 23:00 07:00 15:00 23:00 Intake Total 82 ml 595 ml 1800 ml 20 ml Output Total 825 ml 825 ml 500 ml Balance -825 ml 82 ml -230 ml -500 ml 1800 ml 20 ml Intake IV Total 82 ml 595 ml 1800 ml Blood Product IV Normal Saline Flush 20 ml Output Urine Total 650 ml 675 ml 500 ml Stool Total 0 ml 0 ml Gastric Drainage Total 175 ml 150 ml Laboratory Laboratory Tests Test 07/07/17 18:40 07/08/17 05:37 Hemoglobin 7.0 7.6 White Blood Count 10.4 Red Blood Count 2.40 Hematocrit 23.6 Mean Corpuscular Volume 98.4 Mean Corpuscular Hemoglobin 31.8 Mean Corpuscular Hemoglobin Concent 32.3 Red Cell Distribution Width 15.3 Platelet Count 265 Mean Platelet Volume 7.9 Neutrophils (%) (Auto) 64.6 Lymphocytes (%) (Auto) 20.4 Monocytes (%) (Auto) 10.0 Eosinophils (%) (Auto) 4.1 Basophils (%) (Auto) 0.9 Neutrophils # (Auto) 6.7 Lymphocytes # (Auto) 2.1 Monocytes # (Auto) 1.0 Eosinophils # (Auto) 0.4 Basophils # (Auto) 0.1 CBC Comment DIFF FINAL Differential Comment Blood Urea Nitrogen 23 Creatinine 1.48 Random Glucose 93 Calcium Level 8.6 Sodium Level 148 Potassium Level 3.7 Chloride Level 113 Carbon Dioxide Level 26.2 Anion Gap 9 Estimat Glomerular Filtration Rate 56 Date/Time Source Procedure Growth Status 07/06/17 01:10 Blood Peripheral Aerobic Blood Culture - Preliminary NO GROWTH IN 2 DAYS Resulted 07/06/17 01:10 Blood Peripheral Anaerobic Blood Culture - Preliminary NO GROWTH IN 2 DAYS Resulted Imaging Last Impressions Abdomen X-Ray 07/08/17 0600 Signed Impressions: Service Date/Time: June 03:12 - CONCLUSION: Diffuse gaseous distention of bowel. Boubacar Pearl MD Upper Extremity Ultrasound 07/07/17 0000 Signed Impressions: Service Date/Time: Friday, July 07, 2017 08:46 - CONCLUSION: 1. No evidence of deep venous thrombosis. Mukul Moralez MD Chest X-Ray 07/05/17 0000 Signed Impressions: Service Date/Time: Wednesday, July 05, 2017 21:26 - CONCLUSION: 1. Cardiomegaly 2. Left lower lobe atelectasis versus pneumonia. Mukul Moralez MD Abdomen/Pelvis CT 07/05/17 0000 Signed Impressions: Service Date/Time: Wednesday, July 05, 2017 23:20 - CONCLUSION: Distal small bowel obstruction Boubacar Pearl MD Physical Exam HEENT: Normocephalic; atraumatic; no jaundice. CHEST: Resp. even/unlabored, diminished breath sounds CARDIAC: RRR ABDOMEN: Soft, very minimally distended, nontender; no hepatosplenomegaly; bowel sounds are present in all four quadrants. EXTREMITIES: No clubbing, cyanosis, or edema. FINISH GRINDER: More alert, pleasantly confused (SadlerMercedez Saidapancho CONTRERAS) Assessment and Plan Plan ASSESSMENT: - ? Upper GIB, Coffee Ground Emesis. Brought to ER for coffee ground emesis. On Meloxicam. No javad red bleeding. No obvious blood loss HH today is 7.6/23.6. Plan was for EGD today, unable to get consents. Called paty Rivera at - no answer, left voice message for him to return call. No active gi bleeding at this time. Will plan for egd once consents obtained. - Small bowel obstruction. CT scan abdomen and pelvis (07/05/17)----> distal small bowel obstruction with marked dilated stomach, prominently dilated small bowel to the level of the distal ileum with a transition point in the right lower quadrant, colon is normal in caliber, no discrete masses. No known surgeries and no scars noted on abdomen. Rpt. KUB (07/08/17)---> Diffuse gaseous distention of bowel. He pulled NGT out x 2 today. No n/v. Clinically, very minimal distention, no tenderness on exam. Clear liquids. - Anemia with hx of RENETTA. He was hospitalized in April of 2017 and noted to have a H/H of 7.4-8.4. On admission, he was noted to have an HH dropped from 10.0 to 8.0/24.6 on 07/07. But his baseline is 7.4- 8.4 and it is likely that he was hemoconcentrated with the 10.0 hgb. Today this is 7.6/23.6. No signs of active bleeding. - AMS, lethargy. Improved. More alert, pleasantly confused. Pt has a hx of dementia, schizophrenia, and takes lactulose for elevated ammonia level at detention. Ammonia 35. - Leukocytosis, Lactic acid 2.9. Blood cx no growth 2 day. - Coagulopathy, mild. - PEMA. Creat 1.48. Has been vomiting, likley secondary to dehydration. - Elevated alk phosph. Stable. Liver unremarkable on CT - Hx afib, not on anticoagulation. Currently sinus - HTN, schizophrenia, dementia, anxiety, depression, hypothyroidism, hyperlipidemia, hypertension, seizure disorder, per attending. PLAN: - Plan for egd in am if consents obtained - Obtain consents- attempted to call paty Rivera at - no answer, left voice message.. - Clear liquids - NPO after MN - Protonix 40mg IV BID - Monitor HH - Transfuse as necessary - CBC, BMP in am - Notify GI of active bleeding - Supportive care - Further recommendations to follow based on results of above - Pt seen and examined by Dr. Lowery and myself and this [facility] (Mercedez Sadler) Physician Comments Seen and examined with BEN, egd cancelled today due to inability to reach POA to obtain anesthesia consents, Will try again tomorrow. (Giovanni Lowery MD) Mercedez Sadler Jul 08, 2017 16:12 Giovanni Lowery MD Jul 08, 2017 17:09
[2017-07-08 22:35] LABS: HEMATOCRIT 28.4 % (39.0-51.0)
[2017-07-09] VITALS (19 sets, daily range): BP systolic 109–158; BP diastolic 56–73; PULSE 77–92; RESP 14–32; TEMP 98.5–99.4; O2SAT 91–100
[2017-07-09] MEDS: CHLORHEXIDINE GLUCONATE 2 % 1 PACK (2 CLOTHS) TOP SCH (04:00)
[2017-07-09] MEDS: LEVOTHYROXINE SODIUM 100 MCG VIAL IV PUSH SCH (06:22)
[2017-07-09] MEDS: PANTOPRAZOLE SODIUM 40 MG VIAL IV PUSH SCH ×2 (06:22→15:00)
[2017-07-09 07:08] LABS: HEMATOCRIT 27.3 % (39.0-51.0); MEAN CELL VOLUME 96.1 FL (80.0-100.0); MEAN CORPUSCULAR HEMOGLOBIN 32.8 PG (27.0-34.0); MEAN CORPUSCULAR HGB CONC 34.1 % (32.0-36.0); PLATELET COUNT 227 TH/MM3 (150-450); RED BLOOD COUNT 2.84 MIL/MM3 (4.50-5.90); RED CELL DISTRIBUTION WIDTH 15.3 % (11.6-17.2); REVIEW FLAG FINAL; WHITE BLOOD COUNT 9.8 TH/MM3 (4.0-11.0)
[2017-07-09 08:00] LABS: BICARBONATE 26.1 MEQ/L (21.0-32.0); POTASSIUM 3.6 MEQ/L (3.5-5.1)
[2017-07-09] MEDS: DEXTROSE 5%-LACTATED RING INJ 1,000 ML IV SCH ×3 (08:15→16:15)
[2017-07-09] MEDS: DOCUSATE SODIUM 50 MG/SENNA 8.6 MG TAB PO SCH ×2 (09:44→21:55)
[2017-07-09] MEDS: PHENYTOIN INJ 100 MG/2 ML VIAL IV SCH ×3 (09:45→21:55)
[2017-07-09] MEDS: SODIUM CHLORIDE 0.9% FLUSH 10 ML FLUSH IV FLUSH SCH ×2 (09:45→21:55)
--- NOTE | 2017-07-09 10:03 | HHI.GIFU ---
Subjective Remarks Resting in bed. No n/v. Tolerated clear liquids yesterday. NPO for possible procedure. No bm. (Mercedez Sadler) Objective Vitals I&O Vital Signs Date Time Temp Pulse Resp B/P (MAP) Pulse Ox O2 Delivery O2 Flow Rate FiO2 07/09/17 08:10 98 21 07/09/17 06:00 91 07/09/17 04:00 88 07/09/17 04:00 98.6 88 19 129/59 (82) 99 07/09/17 02:00 89 07/09/17 00:00 98.9 90 31 133/59 (83) 100 07/09/17 00:00 90 07/08/17 22:00 90 07/08/17 20:00 98.4 86 19 122/64 (83) 99 07/08/17 20:00 86 07/08/17 19:10 99 21 07/08/17 18:00 89 24 96 07/08/17 17:00 85 16 130/65 (86) 99 07/08/17 16:01 98.9 86 16 131/61 99 07/08/17 16:00 86 19 131/61 (84) 98 07/08/17 15:59 98.9 07/08/17 15:51 99.0 86 14 116/58 99 07/08/17 15:00 89 19 116/58 (77) 100 07/08/17 14:59 87 25 133/60 (84) 100 07/08/17 14:00 89 22 99 07/08/17 13:35 88 19 126/61 (82) 100 07/08/17 12:00 88 17 113/58 (76) 100 07/08/17 11:59 90 23 111/58 (75) 97 07/08/17 11:00 93 26 92 07/08/17 10:00 90 20 133/60 (84) 100 I/O 07/08/17 07/08/17 07/08/17 07/09/17 07/09/17 07/09/17 07:00 15:00 23:00 07:00 15:00 23:00 Intake Total 1800 ml 894 ml 1352 ml Output Total 500 ml 1200 ml 650 ml Balance -500 ml 1800 ml -306 ml 702 ml Intake IV Total 1800 ml 424 ml 1352 ml Packed Cells 400 ml Blood Product IV Normal Saline Flush 70 ml Output Urine Total 500 ml 1200 ml 650 ml Stool Total 0 ml 0 ml 0 ml Laboratory Laboratory Tests Test 07/08/17 21:06 07/09/17 06:17 Hemoglobin 9.5 9.3 Hematocrit 28.4 27.3 White Blood Count 9.8 Red Blood Count 2.84 Mean Corpuscular Volume 96.1 Mean Corpuscular Hemoglobin 32.8 Mean Corpuscular Hemoglobin Concent 34.1 Red Cell Distribution Width 15.3 Platelet Count 227 Mean Platelet Volume 8.0 Blood Urea Nitrogen 14 Creatinine 1.06 Random Glucose 70 Calcium Level 8.7 Sodium Level 145 Potassium Level 3.6 Chloride Level 111 Carbon Dioxide Level 26.1 Anion Gap 8 Estimat Glomerular Filtration Rate 82 Date/Time Source Procedure Growth Status 07/06/17 01:10 Blood Peripheral Aerobic Blood Culture - Preliminary NO GROWTH IN 2 DAYS Resulted 07/06/17 01:10 Blood Peripheral Anaerobic Blood Culture - Preliminary NO GROWTH IN 2 DAYS Resulted Imaging Last Impressions Abdomen X-Ray 07/08/17 0600 Signed Impressions: Service Date/Time: June 03:12 - CONCLUSION: Diffuse gaseous distention of bowel. Boubacar Pearl MD Upper Extremity Ultrasound 07/07/17 0000 Signed Impressions: Service Date/Time: Friday, July 07, 2017 08:46 - CONCLUSION: 1. No evidence of deep venous thrombosis. uMkul Moralez MD Chest X-Ray 07/05/17 0000 Signed Impressions: Service Date/Time: Wednesday, July 05, 2017 21:26 - CONCLUSION: 1. Cardiomegaly 2. Left lower lobe atelectasis versus pneumonia. Mukul Moralez MD Abdomen/Pelvis CT 07/05/17 0000 Signed Impressions: Service Date/Time: Wednesday, July 05, 2017 23:20 - CONCLUSION: Distal small bowel obstruction Boubacar Pearl MD Physical Exam HEENT: Normocephalic; atraumatic; no jaundice. CHEST: Resp. even/unlabored, diminished breath sounds CARDIAC: RRR ABDOMEN: Soft, very minimally distended, nontender; no hepatosplenomegaly; bowel sounds are present in all four quadrants. EXTREMITIES: No clubbing, cyanosis, or edema. BOLT THREADER: More alert, pleasantly confused (Mercedez SadlerP) Assessment and Plan Plan ASSESSMENT: - ? Upper GIB, Coffee Ground Emesis. Brought to ER for coffee ground emesis. On Meloxicam. No javad red bleeding. No obvious blood loss HH today is 9.3/27.3. Plan was for EGD today, unable to get consents. Called paty Rivera at - no answer, left voice message for him to return call. No active gi bleeding at this time. Possible EGD if consents obtained. - Small bowel obstruction. CT scan abdomen and pelvis (07/05/17)----> distal small bowel obstruction with marked dilated stomach, prominently dilated small bowel to the level of the distal ileum with a transition point in the right lower quadrant, colon is normal in caliber, no discrete masses. No known surgeries and no scars noted on abdomen. Rpt. KUB (07/08/17)---> Diffuse gaseous distention of bowel. NGT out. No n/v. Clinically, very minimal distention , no tenderness on exam. Tolerated clears yesterday NPO for possible procedure. - Anemia with hx of RENETTA. He was hospitalized in April of 2017 and noted to have a H/H of 7.4-8.4. On admission, he was noted to have an HH dropped from 10.0 to 8.0/24.6 on 07/07. But his baseline is 7.4- 8.4 and it is likely that he was hemoconcentrated with the 10.0 hgb. 9.3/27.3. S/P 1 unit prbc. No signs of active bleeding. - AMS, lethargy. Improved. More alert, pleasantly confused. Pt has a hx of dementia, schizophrenia, and takes lactulose for elevated ammonia level at custodial. Ammonia 35. - Leukocytosis, Lactic acid 2.9. Blood cx no growth 2 day. - Coagulopathy, mild. - PEMA. Creat 1.06. Has been vomiting, likley secondary to dehydration. - Elevated alk phosph. Stable. Liver unremarkable on CT - Hx afib, not on anticoagulation. Currently sinus - HTN, schizophrenia, dementia, anxiety, depression, hypothyroidism, hyperlipidemia, hypertension, seizure disorder, per attending. PLAN: - Plan for egd today if consents obtained - Obtain consents - Clear liquids - NPO - Protonix 40mg IV BID - Add Miralax - Monitor HH - Transfuse as necessary - Monitor labs - Notify GI of active bleeding - Supportive care - Further recommendations to follow based on results of above - Pt seen and examined by Dr. Lowery and myself and this note is written on his bhealf (Mercedez Sadler) Physician Comments Consents obtained egd later today (Giovanni Lowery MD) Mercedez Sadler Jul 09, 2017 10:03 Giovanni Lowery MD Jul 09, 2017 10:56
[2017-07-09] MEDS: POLYETHYLENE GLYCOL 17 GM PKG PO SCH (10:15)
--- NOTE | 2017-07-09 10:36 | HHI.HCPN ---
Reason for visit a. To assist with evaluation and management of symptoms including: Nausea/ vomiting, debility, pain, confusion b. To assist medical decision maker(s) with: better understanding of current medical conditions; weighing benefits/burdens of medical treatment options; making medical treatment decisions. . Subjective/Interval History Mr. Rivera was seen and assessed in the intensive care unit, room 509. He is awake and alert, oriented to self. Able to answer questions and follow commands. He denies nausea, vomiting or abdominal pain. He has no complaints. KUB on 07/08/17 showed diffuse gaseous distention of the bowel. Lab work 07/09/17: = WBC: 9.8, hemoglobin 9.3, hematocrit 27.3, platelets 227 = Sodium: 146, potassium 3.6, chloride 111, carbon dioxide 26.1, glucose 70, calcium 8.7 = BUN: 14, creatinine 1.06, GFR 82 Patient tolerated clear liquid diet yesterday. He is NPO for planned EGD today. No BM. Gastroenterology following. . Family/friend interactions Spoke with patient's son (Mg) via telephone. We discussed patient's clinical condition. He is aware that the patient is having a procedure today and states consent were obtained earlier this morning. . Advance Directives Durable Power of Paintings Conservator: Copy in medical record (05/04/2014 -- THIS IS A [facility] ER POWER OF POLITICAL SCIENTIST DOCUMENT. IT DOES NOT REFER TO HEALTH CARE DECISION MAKING. ) Advance Directive Specifics Documented care wishes: Patient's 2 children ( Mg and Suzi) are the "co-health care proxy decision-maker." . Objective Vital Signs Date Time Temp Pulse Resp B/P (MAP) Pulse Ox O2 Delivery O2 Flow Rate FiO2 07/09/17 08:10 98 21 07/09/17 06:00 91 07/09/17 04:00 88 07/09/17 04:00 98.6 88 19 129/59 (82) 99 07/09/17 02:00 89 07/09/17 00:00 98.9 90 31 133/59 (83) 100 07/09/17 00:00 90 07/08/17 22:00 90 07/08/17 20:00 98.4 86 19 122/64 (83) 99 07/08/17 20:00 86 07/08/17 19:10 99 21 07/08/17 18:00 89 24 96 07/08/17 17:00 85 16 130/65 (86) 99 07/08/17 16:01 98.9 86 16 131/61 99 07/08/17 16:00 86 19 131/61 (84) 98 07/08/17 15:59 98.9 07/08/17 15:51 99.0 86 14 116/58 99 07/08/17 15:00 89 19 116/58 (77) 100 07/08/17 14:59 87 25 133/60 (84) 100 07/08/17 14:00 89 22 99 07/08/17 13:35 88 19 126/61 (82) 100 07/08/17 12:00 88 17 113/58 (76) 100 07/08/17 11:59 90 23 111/58 (75) 97 07/08/17 11:00 93 26 92 Intake & Output 07/09/17 07/09/17 07:00 19:00 Intake Total 1352 ml Output Total 650 ml Balance 702 ml Intake IV Total 1352 ml Output Urine Total 650 ml Stool Total 0 ml . Physical Exam CONSTITUTIONAL/GENERAL: This is a frail, elderly male patient in no acute distress TUBES/LINES/DRAINS: PIV x2, condom catheter SKIN: Skin temperature appropriate. Not diaphoretic. HEAD: Atraumatic. Normocephalic. EYES: Pupils equal and round. No injection or drainage. Fundi not examined. ENT: Hearing grossly normal. Nose without bleeding or purulent drainage. Poor dentition NECK: Trachea midline. Supple, nontender. No palpable thyroid enlargement or nodularity. CARDIOVASCULAR: Regular rate and rhythm without murmurs, gallops, or rubs. RESPIRATORY/CHEST: Symmetric, unlabored respirations. Clear to auscultation. Breath sounds equal bilaterally. No accessory muscle use GASTROINTESTINAL: Abdomen soft, non-tender, nondistended. No guarding. GENITOURINARY: Without palpable bladder distension. MUSCULOSKELETAL: Extremities without clubbing, cyanosis, or edema. LYMPHATICS: No palpable cervical or supraclavicular adenopathy. NEUROLOGICAL: Increasingly alert today ; pleasantly confused. Oriented to self only. Answers questions, follows commands PSYCHIATRIC: No obvious anxiety/depression. No apparent hallucinations or other psychotic thought process. . Diagnostic Tests Laboratory Laboratory Tests Test 07/06/17 14:12 07/06/17 15:40 07/06/17 17:33 07/06/17 23:42 Hemoglobin 8.2 GM/DL (13.0-17.0) 7.7 GM/DL (13.0-17.0) 8.2 GM/DL (13.0-17.0) Nasal Screen MRSA (PCR) MRSA NOT DETECTED (NOT Test 07/07/17 03:57 07/07/17 13:00 07/07/17 18:40 07/08/17 05:37 White Blood Count 11.4 TH/MM3 (4.0-11.0) 10.4 TH/MM3 (4.0-11.0) Red Blood Count 2.53 MIL/MM3 (4.50-5.90) 2.40 MIL/MM3 (4.50-5.90) Hemoglobin 8.0 GM/DL (13.0-17.0) 7.0 GM/DL (13.0-17.0) 7.0 GM/DL (13.0-17.0) 7.6 GM/DL (13.0-17.0) Hematocrit 24.6 % (39.0-51.0) 23.6 % (39.0-51.0) Mean Corpuscular Volume 97.4 FL (80.0-100.0) 98.4 FL (80.0-100.0) Mean Corpuscular Hemoglobin 31.8 PG (27.0-34.0) 31.8 PG (27.0-34.0) Mean Corpuscular Hemoglobin Concent 32.7 % (32.0-36.0) 32.3 % (32.0-36.0) Red Cell Distribution Width 14.9 % (11.6-17.2) 15.3 % (11.6-17.2) Platelet Count 266 TH/MM3 (150-450) 265 TH/MM3 (150-450) Mean Platelet Volume 7.5 FL (7.0-11.0) 7.9 FL (7.0-11.0) Neutrophils (%) (Auto) 81.1 % (16.0-70.0) 64.6 % (16.0-70.0) Lymphocytes (%) (Auto) 7.5 % (9.0-44.0) 20.4 % (9.0-44.0) Monocytes (%) (Auto) 8.8 % (0.0-8.0) 10.0 % (0.0-8.0) Eosinophils (%) (Auto) 1.8 % (0.0-4.0) 4.1 % (0.0-4.0) Basophils (%) (Auto) 0.8 % (0.0-2.0) 0.9 % (0.0-2.0) Neutrophils # (Auto) 9.3 TH/MM3 (1.8-7.7) 6.7 TH/MM3 (1.8-7.7) Lymphocytes # (Auto) 0.9 TH/MM3 (1.0-4.8) 2.1 TH/MM3 (1.0-4.8) Monocytes # (Auto) 1.0 TH/MM3 (0-0.9) 1.0 TH/MM3 (0-0.9) Eosinophils # (Auto) 0.2 TH/MM3 (0-0.4) 0.4 TH/MM3 (0-0.4) Basophils # (Auto) 0.1 TH/MM3 (0-0.2) 0.1 TH/MM3 (0-0.2) CBC Comment DIFF FINAL DIFF FINAL Differential Comment Blood Urea Nitrogen 43 MG/DL (7-18) 23 MG/DL (7-18) Creatinine 1.53 MG/DL (0.60-1.30) 1.48 MG/DL (0.60-1.30) Random Glucose 140 MG/DL (74-106) 93 MG/DL (74-106) Total Protein 7.2 GM/DL (6.4-8.2) Albumin 3.0 GM/DL (3.4-5.0) Calcium Level 8.3 MG/DL (8.5-10.1) 8.6 MG/DL (8.5-10.1) Alkaline Phosphatase 146 U/L (45-117) Aspartate Amino Transf (AST/SGOT) 22 U/L (15-37) Alanine Aminotransferase (ALT/SGPT) 24 U/L (12-78) Total Bilirubin 0.3 MG/DL (0.2-1.0) Sodium Level 148 MEQ/L (136-145) 148 MEQ/L (136-145) Potassium Level 3.5 MEQ/L (3.5-5.1) 3.7 MEQ/L (3.5-5.1) Chloride Level 112 MEQ/L (98-107) 113 MEQ/L (98-107) Carbon Dioxide Level 27.3 MEQ/L (21.0-32.0) 26.2 MEQ/L (21.0-32.0) Anion Gap 9 MEQ/L (5-15) 9 MEQ/L (5-15) Estimat Glomerular Filtration Rate 54 ML/MIN (>89) 56 ML/MIN (>89) Test 07/08/17 21:06 07/09/17 06:17 Hemoglobin 9.5 GM/DL (13.0-17.0) 9.3 GM/DL (13.0-17.0) Hematocrit 28.4 % (39.0-51.0) 27.3 % (39.0-51.0) White Blood Count 9.8 TH/MM3 (4.0-11.0) Red Blood Count 2.84 MIL/MM3 (4.50-5.90) Mean Corpuscular Volume 96.1 FL (80.0-100.0) Mean Corpuscular Hemoglobin 32.8 PG (27.0-34.0) Mean Corpuscular Hemoglobin Concent 34.1 % (32.0-36.0) Red Cell Distribution Width 15.3 % (11.6-17.2) Platelet Count 227 TH/MM3 (150-450) Mean Platelet Volume 8.0 FL (7.0-11.0) Blood Urea Nitrogen 14 MG/DL (7-18) Creatinine 1.06 MG/DL (0.60-1.30) Random Glucose 70 MG/DL (74-106) Calcium Level 8.7 MG/DL (8.5-10.1) Sodium Level 145 MEQ/L (136-145) Potassium Level 3.6 MEQ/L (3.5-5.1) Chloride Level 111 MEQ/L (98-107) Carbon Dioxide Level 26.1 MEQ/L (21.0-32.0) Anion Gap 8 MEQ/L (5-15) Estimat Glomerular Filtration Rate 82 ML/MIN (>89) . Result Diagram: 07/09/1761607/09/17616 Imaging Last 72 hours Impressions Abdomen X-Ray 07/08/17 0600 Signed Impressions: Service Date/Time: June 03:12 - CONCLUSION: Diffuse gaseous distention of bowel. Boubacar Pearl MD Abdomen X-Ray 07/07/17 06 Signed Impressions: Service Date/Time: Friday, July 07, 2017 03:20 - CONCLUSION: Mild gaseous distention of small bowel Boubacar Pearl MD Upper Extremity Ultrasound 07/07/17 0000 Signed Impressions: Service Date/Time: Friday, July 07, 2017 08:46 - CONCLUSION: 1. No evidence of deep venous thrombosis. Mukul Moralez MD . Assessment and Plan Disease Oriented Problem List: (1) Dementia (2) SBO (small bowel obstruction) (3) SIRS (systemic inflammatory response syndrome) (4) GI bleed (5) Leukocytosis (6) Acute kidney injury (7) Seizures Symptom Scale: (1) Pain (2) Nausea & vomiting (3) Debility (4) Confusion Pertinent Non-Medical Issues Psychosocial: The patient was born and raised in [facility]. He was for about 20 years but for many years. He had 4 sons and 2 daughters, one daughter is . Spiritual: No nondenominational affiliation. Legal: Power of commercial real estate attorney completed. Ethical issues impacting care: Patient unable to participate in medical decision -making, not capacitated secondary to dementia. HCP are his children. . Important Contacts Son Chad Rivera Jr who resides in [place] Daughter Suzi Ortiz who resides in the [facility] . . Prognosis Mr. Rivera is a 76 y/o male known to palliative care with a medical history of dementia, atrial fibrillation on anticoagulation, seizures, hypertension, schizophrenia and chronic kidney disease. Clinical course complicated by GI bleed, possible left lower lobe infiltrate and concern for aspiration of stomach/ intestinal contents with small bowel obstruction. Patient at a very high risk for further complications. Prognosis is guarded given multiple chronic comorbidities, acute events, physical deconditioning and advanced age. . Code Status: Full Code Plan * FULL CODE * Decision-making: Patient's 2 children ( Mg and Suzi) are the "co- health care proxy decision-maker. During previous hospitalization, all available children were previously contacted by palliative care. All deferred health care decision making to two of the children Chad and Suzi as co- HCP. A "health care proxy designation form" completed 09/04/16, was sent from the [facility] where the patient resides; it confirms Mg Rivera and Suzi Angel legal medical decision makers. * AGGRESSIVE GOALS * Plan for EGD later today. * Per notes on 07/06/17, Dr. Patton spoke with the patient's son (Mg Rivera) who lives in [place] to discuss patient's advancing dementia, now with a GI bleed and SBO is at high risk for further decompensation. Mg stated "as of now we would want him to be intubated and FULL CODE unless he is basically brain-". * poke with patient's son (Mg) via telephone. We discussed patient's clinical condition. He is aware that the patient is having a procedure today and states consent were obtained earlier this morning. He expresses ongoing aggressive goals. * Symptom management - confusion: Patient with advancing dementia. Oriented to person only. * Symptom management - nausea/vomiting: Upon admission, patient had copious amounts of dark emesis concerning for possible feculent emesis with coffee ground emesis. Nausea and vomiting has resolved. Patient tolerated a clear liquid diet yesterday. Currently NPO for EGD later today. KUB on 07/08/17 showed mild gaseous distention of bowel loops throughout the abdomen, appears to be mostly in the small bowel. There are phleboliths seen overlying the pelvis. Vascular calcifications noted. Gastroenterology continues to follow. * Symptom management - debility: Patient resident of long-term facility. Requiring assistance with all ADLs. Likely to continue to worsen. * Symptom management - pain: Patient does not appear to be uncomfortable at this time. * Palliative care will continue to follow this patient throughout his hospitalization to establish trust, assist with symptom management and clarification of medical treatment goals. . Attestation To help prompt me to consider important information that might be impacting today's encounter and assessment, information from prior notes written by myself or my colleagues may have been "brought forward" into today's note. My signature on this note, however, is an attestation that I personally performed the exam, history, and/or decision-making noted today, and, unless otherwise indicated, the interactions with patient, family, and staff as well as the review of records all occurred today. I also attest that the listed assessment and stated plan reflect my best clinical judgment today based on the combination of historical information, prior notes, and today's exam/ interactions. When time spent is documented, it refers only to time spent today by the signer, or if indicated, combined time spent today by collaborating physician/nurse practitioner. . Vikki Oliver Jul 09, 2017 10:36
[2017-07-09] MEDS ORDERED: LACTATED RINGER'S 1000 ML INJ 1,000 ML ONE (11:27)
[2017-07-09] MEDS ORDERED: PHENYLEPH/NS 1000 MCG/10 ML SYR IV ONE (12:00)
[2017-07-09] MEDS ORDERED: PROPOFOL 200 MG/20 ML AMP IV ONE (12:00)
[2017-07-09] MEDS ORDERED: LIDOCAINE HCL 1% PF 5 ML AMPULE OTHER ONE (12:00)
--- NOTE | 2017-07-09 12:22 | GIPROC ---
[facility] [place] [address] [facility]. [facility], [address] EGD PROCEDURE REPORT EXAM DATE: 07/09/2017 PATIENT NAME: Chad Rivera MR #: [id number] BIRTHDATE: 1940 ATTENDING: Giovanni Lowery MD ORDER #: [id number] PAIRER ODDS: Pascual Mccabe and Alexa Ji STATUS: inpatient INDICATIONS: The patient is a 76 yr old male here for an EGD due to iron deficiency anemia PROCEDURE PERFORMED: EGD w/ biopsy MEDICATIONS: None and Per Anesthesia. TOPICAL ANESTHETIC: CONSENT: The patient understands the risks and benefits of the procedure and understands that these risks include, but are not limited to: sedation, allergic reaction, infection, perforation and/or bleeding. Alternative means of evaluation and treatment include, among others: physical exam, x-rays, and/or surgical intervention. The patient elects to proceed with this endoscopic procedure. medical equipment was checked for proper function. Hand hygiene and appropriate measures for infection prevention was taken. After the risks, benefits and alternatives of the procedure were thoroughly explained, Informed consent was verified, confirmed and timeout was successfully executed by the treatment team. The patient was anesthetized with topical anesthesia and the Pentax EG-[id number] endoscope was introduced through the mouth and advanced to the second portion of the duodenum. Retroflexed views revealed a hiatal hernia The gastroscope was then slowly withdrawn and removed. STOMACH: There was erythematous moderate gastritis in the gastric antrum. Severe portal hypertensive gastropathy was found in the gastric fundus. ESOPHAGUS: There was LA Class B esophagitis noted. A biopsy was performed using cold forceps. Sample sent for histology. DUODENUM: The duodenal mucosa appeared normal in the bulb and second portion of the duodenum. ADVERSE EVENTS: There were no complications. IMPRESSIONS: 1. There was erythematous gastritis in the gastric antrum 2. Portal hypertensive gastropathy was found in the gastric fundus 3. There was LA Class B esophagitis noted; biopsy was performed 4. Normal duodenal mucosa in the bulb and second portion of the duodenum 5. Retroflexed views revealed a hiatal hernia RECOMMENDATIONS: 1. Await biopsy results. Biopsy results will not be ready for 7-10 days. If you don't hear from us in two weeks, call our office for biopsy results. 2. Anti-reflux regimen 3. Continue PPI 4. Avoid NSAIDS PATIENT CONDITION: stable DISPOSITION: Inpatient REPEAT EXAM: Return 3 months EGD pending biopsy results Giovanni Lowery MD eSigned: Giovanni Lowery MD 07/09/2017 12:22 PM cc: PATIENT NAME: Chad Rivera MR#: [id number]
[2017-07-09] MEDS ORDERED: DO NOT ADM ANY ANTICOAGULANT DRUGS PRN (12:32)
--- NOTE | 2017-07-09 14:10 | HHI.PR ---
Subjective Remarks Follow-up for small bowel obstruction Patient had no complaints. Denied nausea vomiting abdominal pain. He had no episodes any GI bleed. Objective Vitals Vital Signs Date Time Temp Pulse Resp B/P (MAP) Pulse Ox O2 Delivery O2 Flow Rate FiO2 07/09/17 12:55 97.6 75 16 104/55 (71) 99 Nasal Cannula 2 07/09/17 12:50 74 16 109/56 (73) 98 Nasal Cannula 2 07/09/17 12:30 97.6 73 20 112/54 (73) 100 Nasal Cannula 3 07/09/17 08:10 98 21 07/09/17 06:00 91 07/09/17 04:00 88 07/09/17 04:00 98.6 88 19 129/59 (82) 99 07/09/17 02:00 89 07/09/17 00:00 98.9 90 31 133/59 (83) 100 07/09/17 00:00 90 07/08/17 22:00 90 07/08/17 20:00 98.4 86 19 122/64 (83) 99 07/08/17 20:00 86 07/08/17 19:10 99 21 07/08/17 18:00 89 24 96 07/08/17 17:00 85 16 130/65 (86) 99 07/08/17 16:01 98.9 86 16 131/61 99 07/08/17 16:00 86 19 131/61 (84) 98 07/08/17 15:59 98.9 07/08/17 15:51 99.0 86 14 116/58 99 07/08/17 15:00 89 19 116/58 (77) 100 07/08/17 14:59 87 25 133/60 (84) 100 I/O 07/08/17 07/08/17 07/08/17 07/09/17 07/09/17 07/09/17 07:00 15:00 23:00 07:00 15:00 23:00 Intake Total 1800 ml 894 ml 1352 ml Output Total 500 ml 1200 ml 650 ml 350 ml Balance -500 ml 1800 ml -306 ml 702 ml -350 ml Intake IV Total 1800 ml 424 ml 1352 ml Packed Cells 400 ml Blood Product IV Normal Saline Flush 70 ml Output Urine Total 500 ml 1200 ml 650 ml 350 ml Stool Total 0 ml 0 ml 0 ml Result Diagram: 07/09/1761607/09/17616 Objective Remarks GENERAL: in NAD CARDIOVASCULAR: Regular rate and rhythm without murmurs, gallops, or rubs. RESPIRATORY: Breath sounds equal bilaterally. No accessory muscle use. GASTROINTESTINAL: Abdomen soft, non-tender, nondistended. EXT: Minimal swelling of the right hand. No tenderness palpation of the hand. Medications and IVs Current Medications Ondansetron HCl (Zofran Inj) 4 mg ONCE ONCE IVP Last administered on 22:44; Start 07/05/17 at 21:15; Stop 07/05/17 at 21:16; Status DC Sodium Chloride (NS Flush) 2 ml UNSCH PRN IVF FLUSH AFTER USING IV ACCESS Last administered on 07/05/17 22:44; Start 07/05/17 at 21:15; Stop 07/06/17 at 05: 11; Status DC Pantoprazole Sodium 80 mg/ Sodium Chloride 35 ml @ 420 mls/hr Q5M ONCE IV Last administered on 07/05/17 22:44; Start 07/05/17 at 21:14; Stop 07/05/17 at 21:18; Status DC Pantoprazole Sodium 80 mg/ Sodium Chloride 100 ml @ 10 mls/hr Q10H IV Last administered on 07/07/17 03:55; Start 07/05/17 at 21:14; Stop 07/07/17 at 12: 55; Status DC Piperacillin Sod/ Tazobactam Sod 100 ml @ 200 mls/hr ONCE ONCE IV Last administered on 07/06/17 01:27; Start 07/06/17 at 00:00; Stop 07/06/17 at 00 :29; Status DC Vancomycin HCl 1000 mg/Sodium Chloride 250 ml @ 250 mls/hr ONCE ONCE IV Last administered on 07/06/17 02:11; Start 07/06/17 at 00:00; Stop 07/06/17 at 00 :59; Status DC Sodium Chloride 500 ml @ 500 mls/hr BOLUS ONCE IV Last administered on 02:30; Start 07/06/17 at 02:30; Stop 07/06/17 at 03:29; Status DC Sodium Chloride (NS Flush) 2 ml BID IV FLUSH ; Start 07/06/17 at 09:00; Stop 07/06/17 at 09:00; Status DC Sodium Chloride (NS Flush) 2 ml UNSCH PRN IVF FLUSH AFTER USING IV ACCESS; Start 07/06/17 at 02:45; Stop 07/06/17 at 07:34; Status DC Phenytoin Sodium (Dilantin Inj) 200 mg Q12HR IV Last administered on 09:45; Start 07/06/17 at 09:00 Phenytoin Sodium (Dilantin Inj) 100 mg DAILY@1200 IV Last administered on 07/08 15:56; Start 07/06/17 at 12:00 Sodium Chloride 1,000 ml @ 125 mls/hr Q8H IV Last administered on 07/06/17 16:14; Start 07/06/17 at 07:04; Stop 07/06/17 at 17:43; Status DC Sodium Chloride (NS Flush) 2 ml UNSCH PRN IV FLUSH FLUSH AFTER USING IV ACCESS ; Start 07/06/17 at 07:15 Sodium Chloride (NS Flush) 2 ml BID IV FLUSH Last administered on 07/09/17 09 :45; Start 07/06/17 at 09:00 Ondansetron HCl (Zofran Inj) 4 mg Q6H PRN IV PUSH NAUSEA OR VOMITING; Start at 07:15 Albuterol Sulfate (Albuterol Neb) 2.5 mg Q2HR NEB PRN INH SOB/WHEEZING; Start 07/06/17 at 07:15 Miscellaneous Information 1 Q361D XX ; Start 07/06/17 at 07:15 Chlorhexidine Gluconate (Chlorhexidine 2% Cloth) 3 pack Taper DAILY@04 TOP Last administered on 07/09/17 04:00; Start 07/07/17 at 04:00; Stop 07/03/18 at 03:59 Chlorhexidine Gluconate (Chlorhexidine 2% Cloth) 3 pack UNSCH PRN TOP HYGIENIC CARE; Start 07/06/17 at 07:15 Senna/Docusate Sodium (Ramona-Colace) 1 tab BID PO Last administered on 09:44; Start 07/06/17 at 09:00 Magnesium Hydroxide (Milk Of Magnesia Liq) 30 ml Q12H PRN PO MILD - MODERATE CONSTIPATION; Start 07/06/17 at 07:15 Sennosides (Senokot) 17.2 mg Q12H PRN PO MODERATE - SEVERE CONSTIPATION; Start 07/06/17 at 07:15 Bisacodyl (Dulcolax Supp) 10 mg DAILY PRN RECTAL SEVERE CONSITIPATION; Start 07/06/17 at 07:15 Lactulose (Lactulose Liq) 30 ml DAILY PRN PO SEVERE CONSITIPATION; Start 07/06 at 07:15 Dextrose/Lactated Ringer's 1,000 ml @ 125 mls/hr Q8H IV Last administered on 07/09/17 09:47; Start 07/06/17 at 08:15 Piperacillin Sod/ Tazobactam Sod 50 ml @ 100 mls/hr Q6H IV Last administered on 07/08/17 15:56; Start 07/06/17 at 09:00; Stop 07/08/17 at 15:59; Status DC Levothyroxine Sodium (Synthroid Inj) 25 mcg DAILY@06 IV PUSH Last administered on 07/09/17 06:22; Start 07/07/17 at 06:00 Acetaminophen (Tylenol) 500 mg ONCE ONCE PO Last administered on 07/07/17 04 :15; Start 07/07/17 at 04:15; Stop 07/07/17 at 04:16; Status DC Pantoprazole Sodium (Protonix Inj) 40 mg Q12H IV PUSH Last administered on 06:22; Start 07/07/17 at 15:00 Sodium Chloride 250 ml @ 15 mls/hr ONCE ONCE IV Last administered on 15:24; Start 07/07/17 at 16:30; Stop 07/08/17 at 09:09; Status DC Furosemide (Lasix Inj) 40 mg STAT ONCE IV PUSH ; Start 07/08/17 at 13:00; Stop 07/08/17 at 13:01; Status Cancel Polyethylene Glycol (Miralax) 17 gm DAILY PO ; Start 07/09/17 at 10:15 Lactated Ringer's 1,000 ml @ As Directed STK-MED ONCE .ROUTE Last administered on 07/09/17 11:30; Start 07/09/17 at 11:27; Stop 07/09/17 at 11 :28; Status DC Miscellaneous Information ALL NURSING DEPARTME... UNSCH PRN .XX SEE LABEL COMMENTS; Start 07/09/17 at 12:32; Stop 07/10/17 at 12:31 A/P Assessment and Plan 76 y/o who p/w melena Small bowel obstruction -GI consulted and following. Patient scheduled for EGD the later today. -On IV fluids. -Management per GI. GI bleed -Patient scheduled for EGD today. -Patient on Protonix and Reglan. -Continue to trend H&H and monitor for GI bleed. Dementia/Schizophrenia/Seizures disorder/Anxiety/h/o hyperammonemia -Dilantin level is 13.9. Continue Dilantin 200 mg IV q12 and 100 mg IV at noon. -zyprexa held. . Swelling of right hand -Most likely secondary to superficial clot since occur after attempted IV placement. -Ultrasound Doppler showed no thrombosis. -Improving drastically. Paroxysmal Atrial fibrillation/Hypertension -Metoprolol was held secondary to GI bleed. -Hold metoprolol currently due to concern for GI bleeding. Acute kidney injury -Continue to monitor. Strict ins and outs. Avoid nephrotoxins. SIRS response to GI bleeding -Treated empirically for sepsis, but no infectious source. His cultures are negative so far and there is no source of infection will discontinue antibiotics. Anemia -Has chronic anemia and now with acute blood loss. Followup Hgb q6 hours. Transfuse as needed for Hgb <7. Type and Screen. Hypothyroidism -Synthroid 25 mcg IV daily PROPH: SCD for DVT prophylaxis. Pharmacologic DVT prophylaxis contraindicated in setting of concern for GI bleeding. Protonix drip. Discharge Planning Palliative care following. Once patient has EGD done and tolerates diet along with oral medication can be discharged to rehabilitation. Caterina Ledesma MD Jul 09, 2017 14:10
[2017-07-10] VITALS (7 sets, daily range): BP systolic 94–146; BP diastolic 54–67; PULSE 82–92; RESP 15–23; TEMP 98–99.8; O2SAT 97–100
[2017-07-10] MEDS: DEXTROSE 5%-LACTATED RING INJ 1,000 ML IV SCH (00:15)
[2017-07-10] MEDS: PANTOPRAZOLE SODIUM 40 MG VIAL IV PUSH SCH (03:00)
[2017-07-10] MEDS: CHLORHEXIDINE GLUCONATE 2 % 1 PACK (2 CLOTHS) TOP SCH (04:00)
[2017-07-10] MEDS: LEVOTHYROXINE SODIUM 100 MCG VIAL IV PUSH SCH (06:00)
[2017-07-10] MEDS: POLYETHYLENE GLYCOL 17 GM PKG PO SCH (08:55)
[2017-07-10] MEDS: SODIUM CHLORIDE 0.9% FLUSH 10 ML FLUSH IV FLUSH SCH (08:55)
[2017-07-10] MEDS: DOCUSATE SODIUM 50 MG/SENNA 8.6 MG TAB PO SCH (08:55)
[2017-07-10] MEDS ORDERED: PANT40TA3 PO (08:59)
[2017-07-10] MEDS ORDERED: METO25TA3 PO (08:59)
[2017-07-10] MEDS ORDERED: METOPROLOL TARTRATE 25 MG TAB PO SCH (09:00)
[2017-07-10] MEDS ORDERED: PHENYTOIN SUSP 100 MG/4 ML CUP PO SCH ×2 (09:00→12:00)
[2017-07-10] MEDS ORDERED: LACTULOSE SYRUP 20 GM/30 ML CUP PO PRN (09:00)
--- NOTE | 2017-07-10 09:02 | HHI.DS ---
Discharge Summary Admission Date Jul 06, 2017 at 02:40 Discharge Date: Jul 10, 2017 Admitting Diagnosis (1) Small bowel obstruction ICD Code: K56.609 - Unspecified intestinal obstruction, unspecified as to partial versus complete obstruction Diagnosis: Principal (2) Gastritis ICD Code: K29.70 - Gastritis, unspecified, without bleeding Diagnosis: Principal (3) Esophagitis ICD Code: K20.9 - Esophagitis, unspecified Diagnosis: Principal (4) Acute kidney injury ICD Code: N17.9 - Acute kidney injury Diagnosis: Principal Status: Acute (5) Dementia ICD Code: F03.90 - Dementia Diagnosis: Secondary Status: Acute (6) Debility ICD Code: R53.81 - Other malaise Diagnosis: Secondary Status: Acute Procedures EGD Brief History - From Admission 76-year-old male with past medical history of dementia, hypertension, schizophrenia, hyperlipidemia, atrial fibrillation (no longer on anticoagulation is felt not to be a good candidate) who [facility]. He presents to [facility] emergency department because nurses noted coffee ground emesis. No melena or BRBPR. He is a poor historian, not speaking at all.Reportedly no h/o GI bleeding. He is on an NSAID since at least 05/24/17. Hgb is 10 and WBC is 14.2. CT abd/pelvis demonstrates large gastric distension and small bowel obstruction. He vomited in the ED large amount of coffee ground emesis and then NGT was inserted and had 1 L of coffee ground output upon insertion. Stool was brown and heme positive per Dr. Dumont. He is afebrile, tachycardic 100-106, MAP 80s to 90s. He received Zosyn, Vancomycin and Protonix drip in the ED. ED physician attempted femoral line unsuccessfully. I do not see any abdominal surgical scars. CBC/BMP: 07/09/17 0617 07/09/17 0617 Significant Findings Laboratory Tests Test 07/07/17 13:00 07/07/17 18:40 07/08/17 05:37 07/08/17 21:06 Hemoglobin 7.0 GM/DL (13.0-17.0) 7.0 GM/DL (13.0-17.0) 7.6 GM/DL (13.0-17.0) 9.5 GM/DL (13.0-17.0) Red Blood Count 2.40 MIL/MM3 (4.50-5.90) Hematocrit 23.6 % (39.0-51.0) 28.4 % (39.0-51.0) Monocytes (%) (Auto) 10.0 % (0.0-8.0) Eosinophils (%) (Auto) 4.1 % (0.0-4.0) Monocytes # (Auto) 1.0 TH/MM3 (0-0.9) Blood Urea Nitrogen 23 MG/DL (7-18) Creatinine 1.48 MG/DL (0.60-1.30) Sodium Level 148 MEQ/L (136-145) Chloride Level 113 MEQ/L (98-107) Estimat Glomerular Filtration Rate 56 ML/MIN (>89) Test 07/09/17 06:17 Red Blood Count 2.84 MIL/MM3 (4.50-5.90) Hemoglobin 9.3 GM/DL (13.0-17.0) Hematocrit 27.3 % (39.0-51.0) Random Glucose 70 MG/DL (74-106) Chloride Level 111 MEQ/L (98-107) Estimat Glomerular Filtration Rate 82 ML/MIN (>89) Imaging Last Impressions Abdomen X-Ray 07/08/17 0600 Signed Impressions: Service Date/Time: June 03:12 - CONCLUSION: Diffuse gaseous distention of bowel. Boubacar Pearl MD Upper Extremity Ultrasound 07/07/17 0000 Signed Impressions: Service Date/Time: Friday, July 07, 2017 08:46 - CONCLUSION: 1. No evidence of deep venous thrombosis. Mukul Moralez MD Chest X-Ray 07/05/17 0000 Signed Impressions: Service Date/Time: Wednesday, July 05, 2017 21:26 - CONCLUSION: 1. Cardiomegaly 2. Left lower lobe atelectasis versus pneumonia. Mukul Moralez MD Abdomen/Pelvis CT 07/05/17 0000 Signed Impressions: Service Date/Time: Vik, July 05, 2017 23:20 - CONCLUSION: Distal small bowel obstruction Boubacar Pearl MD PE at Discharge GENERAL: in NAD CARDIOVASCULAR: Regular rate and rhythm without murmurs, gallops, or rubs. RESPIRATORY: Breath sounds equal bilaterally. No accessory muscle use. GASTROINTESTINAL: Abdomen soft, non-tender, nondistended. EXT: Minimal swelling of the right hand. No tenderness palpation of the hand. Pt update on day of discharge f/u for SBO and EGD patient has no complaints. He is tolerating regular diet. Denied any N/V or abdominal pain. continues to not have any bloody BM. d/w patient's nurse who also had no concerns. Hospital Course 76 y/o who p/w melena Small bowel obstruction -GI consulted and following. -treated with bowel rest with IVFS and NGT. -resolved during hospital course. GI bleed -no active bleeding in hospital. He was put on IV protonix. -patient had EGD done which showed erythematous gastritis in the gastric antrum , portal hypertensive gastropathy was found in the gastric fundus, LA Class B esophagitis noted; biopsy was performed, and hiatal hernia -recommendations was to continues with a PPI and avoid NSAIDs. Dementia/Schizophrenia/Seizures disorder/Anxiety/h/o hyperammonemia -Dilantin level is 13.9. -patient initially put on IV medication until able to take oral medication. . Swelling of right hand -Most likely secondary to superficial clot since occur after attempted IV placement. -Ultrasound Doppler showed no thrombosis. -resolved quickly in 1-2 days. Paroxysmal Atrial fibrillation/Hypertension -Metoprolol was held secondary to GI bleed. -restarted a lower dose on discharge since BP was normal. Acute kidney injury -Continue to monitor. Strict ins and outs. Avoid nephrotoxins. -resolved with IVFs. SIRS response to GI bleeding -Treated empirically for sepsis, but no infectious source. His cultures are negative so far and there is no source of infection will discontinue antibiotics. Anemia -Has chronic anemia and now with acute blood loss. Followup Hgb q6 hours. Transfuse as needed for Hgb <7. Type and Screen. Hypothyroidism -Synthroid 25 mcg IV daily . Pt Condition on Discharge: Good Discharge Disposition: [facility] Discharge Time: <= 30 minutes Discharge Instructions DIET: Follow Instructions for: Heart Healthy Diet Activities you can perform: Regular-No Restrictions Follow up Referrals: Gastroenterology - 2 Weeks with Giovanni Lowery MD [facility]/ - Daily New Medications: Metoprolol Tartrate (Metoprolol Tartrate) 25 Mg Tab 12.5 MG PO BID for atrial fibrillation, #30 TAB 0 Refills Pantoprazole (Pantoprazole) 40 Mg Tab 40 MG PO DAILY for gastritis, #30 TAB 0 Refills Continued Medications: Lactulose Liq (Lactulose Liq) 10 Gm/15 Ml Soln 45 ML PO TID PRN for HIGH AMONIA LEVEL, ML 0 Refills Levothyroxine (Synthroid) 50 Mcg Tab 50 MCG PO DAILY@0600 for Hypothyroidism, #30 TAB Melatonin (Melatonin) 5 Mg Tab 3 MG PO HS for Provide Good Sleep, TAB 0 Refills Olanzapine (Zyprexa) 2.5 Mg Tab 2.5 MG PO HS, #30 TAB 0 Refills Phenytoin Liq (Dilantin-125 Liq) 125 Mg/5 Ml Susp 200 MG PO Q12HR for Control Seizures, #237 ML 0 Refills Phenytoin Liq (Phenytoin Liq) 125 Mg/5 Ml Rehana 100 MG PO DAILY for Control Seizures, #237 ML 0 Refills [ativan gel] () 1 MG TOPICAL Q6HR PRN for AGITATION [multivitamin-M] () 1 TAB PO DAILY Discontinued Medications: Hydrocodone-Acetaminophen ([place]) 5-325 mg Tab 1 TAB PO Q12HR PRN for PAIN, TAB 0 Refills Meloxicam (Meloxicam) 7.5 Mg Tab 7.5 MG PO DAILY for Arthritis Pain, TAB 0 Refills Metoprolol Tartrate (Metoprolol Tartrate) 50 Mg Tab 50 MG PO BID, #60 TAB 0 Refills Caterina Ledesma MD Jul 10, 2017 09:02
[2017-07-10] MEDS ORDERED: MELATONIN 5 MG TAB PO SCH (21:00)
[2017-07-10] MEDS ORDERED: OLANZapine 2.5 MG TAB PO SCH (21:00)
[2017-07-11] MEDS ORDERED: LEVOTHYROXINE SODIUM 50 MCG TAB PO SCH (06:00)
[2017-07-11] MEDS ORDERED: PANTOPRAZOLE SOD 40 MG DELAYED RELEASE TAB PO SCH (09:00)
== END 2017-07-10 13:15 | DRG 389 ==
LOC: NEPC 20:47 → NEDA 07-06 02:40 → NEDH 07-06 06:22 → HIME 07-06 15:10
PROVIDERS: ADMIT Family Medicine; ATTEND Family Medicine
PROC: 0D9670Z Drainage of Stomach with Drainage Device, Via Natural or Artificial Opening (ICD-10-PCS; 2017-07-06)
PROC: 30233N1 Transfusion of Nonautologous Red Blood Cells into Peripheral Vein, Percutaneous Approach (ICD-10-PCS; principal; 2017-07-08)
PROC: 0DB58ZX Excision of Esophagus, Via Natural or Artificial Opening Endoscopic, Diagnostic (ICD-10-PCS; 2017-07-09)
DX: K56.609 Unspecified intestinal obstruction, unspecified as to partial versus complete obstruction (principal); N17.9 Acute kidney failure, unspecified; E87.2 Acidosis; D68.9 Coagulation defect, unspecified; K76.6 Portal hypertension; R65.10 Systemic inflammatory response syndrome (SIRS) of non-infectious origin without acute organ dysfunction; D62 Acute posthemorrhagic anemia; K92.1 Melena; F03.90 Unspecified dementia, unspecified severity, without behavioral disturbance, psychotic disturbance, mood disturbance, and anxiety; I48.0 Paroxysmal atrial fibrillation; E86.0 Dehydration; G40.909 Epilepsy, unspecified, not intractable, without status epilepticus; F20.9 Schizophrenia, unspecified; E03.9 Hypothyroidism, unspecified; F41.9 Anxiety disorder, unspecified; F32.9 Major depressive disorder, single episode, unspecified; E78.5 Hyperlipidemia, unspecified; N18.9 Chronic kidney disease, unspecified; I12.9 Hypertensive chronic kidney disease with stage 1 through stage 4 chronic kidney disease, or unspecified chronic kidney disease; K21.0 Gastro-esophageal reflux disease with esophagitis; K44.9 Diaphragmatic hernia without obstruction or gangrene; Z96.642 Presence of left artificial hip joint; M19.90 Unspecified osteoarthritis, unspecified site; K31.89 Other diseases of stomach and duodenum; K29.70 Gastritis, unspecified, without bleeding
CPT/HCPCS: 36430; 36556; 43753; 71010; 74000; 74176; 76937; 80048; 80053; 80185; 82140; 83605; 85014; 85018; 85025; 85027; 85610; 85730; 86850; 86900; 86901; 86920; 87040; 87641; 88305; 93971; 96365; 96367; 96375; C9113; J1165; J2370; J2405; J2543; J3370; J7030; J7040; J7050; J7120; J7121; P9016